=== PATIENT | female | born 1945 | race African-American/Black ===

== ENCOUNTER 2017-08-25 19:47 | Inpatient (IN) | payer MEDICARE, BC, SELFPAY | END 2017-08-27 08:13 | disposition home or self-care (01) | DRG 440 | PROVIDERS: Admitting Provider Internal Medicine Adolescent Medicine; Emergency Provider Emergency Medicine; Family Provider Family Medicine; Visit Provider Family Medicine | DX: K85.90 Acute pancreatitis without necrosis or infection, unspecified (principal); I10 Essential (primary) hypertension | CPT/HCPCS: 36415; 74176; 80053; 80076; 82150; 83690; 85025; 96374; 96375; 99284; J2405 ==

== ENCOUNTER → 2017-11-15 13:08 | Outpatient (CLI) | payer MEDICARE, BC, SELFPAY ==
--- NOTE | 2017-11-15 13:10 | CI_ITS ---
Cerebrovascular Exam Indications: 785.9 Bruit. IMPRESSIONS 1. The bilateral vertebral arteries are patent with normal antegrade flow. 2. Study suggests less than 20% stenosis involving the right internal carotid artery. 3. Study suggests 20-49%(lower end of scale)stenosis involving the left internal carotid artery. History: Risk factors: Hypertension. Hyperlipidemia. Carotid duplex study. Complete study and Doppler flow study including spectral analysis, color and cano scale imaging. Height: Height: 165.1cm. Height: 65in. Weight: Weight: 71.2kg. Weight: 156.7lb. Body mass index: BMI: 26.1kg/m^2. Body surface area: BSA: 1.82m^2. Location: Vascular laboratory. Patient status: Outpatient. Tables: Arterial flow: + +--------+--------+ Location V sys V ed + +--------+--------+ Right CCA - proximal 69.1cm/s 14.1cm/s + +--------+--------+ Right CCA - distal 93.5cm/s 18.1cm/s + +--------+--------+ Right ECA 99cm/s -------- + +--------+--------+ Right ICA - proximal 99.8cm/s 19.6cm/s + +--------+--------+ Right ICA - mid 89.6cm/s 18.1cm/s + +--------+--------+ Right ICA - distal 71.5cm/s 23.6cm/s + +--------+--------+ Right vertebral 58.1cm/s -------- + +--------+--------+ Left CCA - proximal 80.9cm/s 15.7cm/s + +--------+--------+ Left CCA - distal 98.2cm/s 17.3cm/s + +--------+--------+ Left ECA 127cm/s -------- + +--------+--------+ Left ICA - proximal 116cm/s 21.2cm/s + +--------+--------+ Left ICA - mid 117cm/s 26.7cm/s + +--------+--------+ Left ICA - distal 92.7cm/s 26.7cm/s + +--------+--------+ Left vertebral 46.4cm/s 33.8cm/s + +--------+--------+ Velocity ratios: + + + + + + Right, V sys Right, V ed Left, V sys Left, V ed + + + + + + Max ICA/dist CCA 1.07 1.3 1.19 1.54 + + + + + + (Report amended ) Electronically signed by: Russ Tellez [id number]
== END ==
PROVIDERS: Family Provider Family Medicine; PCP Family Medicine; Visit Provider Internal Medicine Cardiovascular Disease
DX: R09.89 Other specified symptoms and signs involving the circulatory and respiratory systems (principal); I11.9 Hypertensive heart disease without heart failure
CPT/HCPCS: 93880

== ENCOUNTER → 2017-11-19 09:53 | Outpatient (CLI) | payer MEDICARE, BC, SELFPAY ==
--- NOTE | 2017-11-19 09:55 | MM_ITS ---
MM Dig screening mamm BI w/CAD CAD Screening ORDERING PHYSICIAN : Miller Mathews MD PATIENT AGE: 72 years GENDER: Female INDICATION: No hormones no new complaints. Previous benign needle biopsies of right and left breast. Family history. Sister with breast cancer in her 20 COMPARISON: Previous mammograms: October 2016, February 2016 right mammogram. Bilateral mammogram 2014 and September 2014. TECHNIQUE: Standard CC and MLO images were obtained. R2 CAD reviewed. FINDINGS: Moderate breast density bilaterally. Mild asymmetry CAD highlights no areas of concern nor does visual inspection. No dominant mass nor suspicious new findings no architectural distortion .:2 metallic clips from previous stereotactic biopsy procedures central right breast; with one metallic clip at the medial left breast . IMPRESSION: Stable bilateral mammogram with no new areas of concern. Follow-up in one year BI-RADS Category: 1 Negative RECOMMENDED FOLLOW-UP: 1YR - 1 YEAR FOLLOW-UP (A letter has been sent to the patient regarding results of the study.) Knee
== END ==
PROVIDERS: Family Provider Family Medicine; PCP Family Medicine; Visit Provider Family Medicine
DX: Z12.31 Encounter for screening mammogram for malignant neoplasm of breast (principal)
CPT/HCPCS: 77067

== ENCOUNTER → 2017-11-22 10:09 | Outpatient (REF) | payer MEDICARE, BC, SELFPAY | LOC: LAB 10:09 | PROVIDERS: Visit Provider Podiatrist | DX: B35.1 Tinea unguium (principal) | CPT/HCPCS: 87102; 87206; 87220 ==

== ENCOUNTER → 2017-12-04 12:17 | Outpatient (CLI) | payer MEDICARE, BC, SELFPAY ==
[2017-12-04 12:26] LABS: Microscopic, Urine URINE MICROSCOPIC (MICROSCOPIC)
[2017-12-04 12:48] LABS: Basophils % 0.7 % (0.1-2.0); Eosinophils # 0.2 K/mm3 (0.0-0.4); Eosinophils % 4.4 % (0.1-12.0); Hemoglobin 12.5 g/dL (12.2-16.2); Lymphocytes # 1.3 K/mm3 (0.7-4.5); Lymphocytes % 36.7 K/mm3 (10-50); Mean Corpuscular HGB Conc 30.6 g/dL (31.8-35.4); Mean Corpuscular Hemoglobin 25.4 pg (27.0-31.2); Mean Platelet Volume 8.7 fl (7.4-10.4); Monocytes # 0.3 K/mm3 (0.1-1.0); Monocytes % 9.7 % (1.7-9.3); Neutrophils # 1.7 K/mm3 (1.8-7.8); Neutrophils % 48.5 % (37.0-80.0); Platelet Count 193 K/mm3 (142-424); Red Blood Count 4.94 M/mm3 (4.20-5.40); White Blood Count 3.5 K/mm3 (4.8-10.8)
[2017-12-04 13:14] LABS: Alanine Aminotransferase 15 U/L (12-78); Albumin Level 3.5 gm/dL (3.4-5.0); Albumin/Globulin Ratio 0.9 (1.1-1.8); Alkaline Phosphatase 110 U/L (46-116); Anion Gap 12.7 mEq/L (5-15); Aspartate Amino Transferase 14 U/L (15-37); Bilirubin,Total 0.2 mg/dL (0.2-1.0); Blood Urea Nitrogen 13 mg/dL (7-18); Calcium 8.9 mg/dL (8.5-10.1); Carbon Dioxide 25 mmol/L (21.0-32.0); Chloride 99 mmol/L (98-107); Creatinine,Serum 1.01 mg/dL (0.55-1.02); Estimated Glomerular Filt Rate 54 ml/min (>60); GFR (African American) 66 ML/MIN (>60); Glucose 97 mg/dL (74-106); Potassium 3.7 mmoL/L (3.5-5.1); Sodium 133 mmol/L (136-145); Total Protein,Serum 7.5 gm/dL (6.4-8.2)
[2017-12-04 13:26] LABS: Erythrocyte Sedimentation Rate 25 mm/hr (0-30)
[2017-12-04 13:33] LABS: Appearance,Urine CLEAR (Clear); Bilirubin,Urine Negative (Negative); Blood, Urine Negative (Negative); Color,Urine YELLOW (Yellow); Glucose,Urine (UA) Negative (Negative); Ketones,Urine Negative (Negative); Leukocyte Esterase,Urine Negative (Negative); Nitrate,Urine Negative (Negative); PH,Urine 6.5 (5.0-8.5); Protein,Urine Negative (Negative); Urobilinogen,Urine 0.2 EU/dl (0.2)
[2017-12-04 14:16] LABS: Bacteria,Urine Trace /lpf
== END ==
PROVIDERS: Visit Provider Nurse Practitioner Women's Health
DX: M32.9 Systemic lupus erythematosus, unspecified (principal); I73.00 Raynaud's syndrome without gangrene; M54.2 Cervicalgia; R53.83 Other fatigue; M48.00 Spinal stenosis, site unspecified; Z91.89 Other specified personal risk factors, not elsewhere classified
CPT/HCPCS: 36415; 80053; 81001; 85025; 85651

== ENCOUNTER → 2018-01-25 08:00 | Outpatient (CLI) | payer MEDICARE, BC, SELFPAY ==
--- NOTE | 2018-01-25 08:05 | US_ITS ---
US Arterial Ankle Brachial Ind ITS.REASON: Peripheral Artery Disease previous smoker, ORDERING PHYSICIAN: Sierra Patel DPM PATIENT AGE: 72 years TECHNIQUE: Segmental pressures obtained of both right and left leg. These are compared to brachial blood pressure to yield index at each level sampled including summary BRITTNEE. The data sheets from the procedure are available in PACS FINDINGS Rest study only performed today No prior studies available for comparison. Blood pressures reported are in millimeters mercury. RIGHT LEG BRITTNEE = .8. Right TBI 0.5 Brachial BP: 140 Thigh BP: 126 Calf BP: 135 Ankle PT: 122 Ankle DP : 146 Digit =72 LEFT LEG BRITTNEE = .8 Left TBI 0.5 Brachial BPD: 147 Thigh BP: 139 Calf BP: 125 Ankle PT:115 Ankle DP: 131 Digit = 73 Pulses and waveforms: Dampened at left calf IMPRESSION: 1. Slightly low ABIs on both sides suggesting mild atherosclerotic vascular disease. 2. Low TBI's bilaterally suggesting small vessel disease
== END ==
PROVIDERS: Family Provider Family Medicine; PCP Family Medicine; Visit Provider Podiatrist
DX: I73.00 Raynaud's syndrome without gangrene (principal); M54.2 Cervicalgia; M32.9 Systemic lupus erythematosus, unspecified; R53.83 Other fatigue; M48.00 Spinal stenosis, site unspecified; Z91.89 Other specified personal risk factors, not elsewhere classified
CPT/HCPCS: 93922

== ENCOUNTER → 2018-02-07 14:53 | Outpatient (CLI) | payer MEDICARE, BC, SELFPAY ==
[2018-02-07 16:53] LABS: Blood Urea Nitrogen 16 mg/dL (7-18); Creatinine,Serum 1.22 mg/dL (0.55-1.02); Estimated Glomerular Filt Rate 44 ml/min (>60); GFR (African American) 53 ML/MIN (>60)
== END ==
PROVIDERS: Visit Provider Internal Medicine Cardiovascular Disease
DX: M32.9 Systemic lupus erythematosus, unspecified (principal); I73.00 Raynaud's syndrome without gangrene; M54.2 Cervicalgia; R53.83 Other fatigue; M48.00 Spinal stenosis, site unspecified; Z91.89 Other specified personal risk factors, not elsewhere classified
CPT/HCPCS: 36415; 82565; 84520

== ENCOUNTER → 2018-02-08 13:31 | Outpatient (CLI) | payer MEDICARE, BC, SELFPAY | PROVIDERS: Family Provider Family Medicine; PCP Family Medicine; Visit Provider Internal Medicine | DX: M32.9 Systemic lupus erythematosus, unspecified (principal); I73.00 Raynaud's syndrome without gangrene; M54.2 Cervicalgia; R53.83 Other fatigue; M48.00 Spinal stenosis, site unspecified; Z91.89 Other specified personal risk factors, not elsewhere classified ==

== ENCOUNTER → 2018-03-10 12:04 | Outpatient (CLI) | payer MEDICARE, BC, SELFPAY ==
[2018-03-10 12:07] LABS: Microscopic, Urine URINE MICROSCOPIC (MICROSCOPIC)
[2018-03-10 12:43] LABS: Basophils % 0.7 % (0.1-2.0); Eosinophils # 0.1 K/mm3 (0.0-0.4); Eosinophils % 3.3 % (0.1-12.0); Hematocrit 42.7 % (37.0-47.0); Hemoglobin 12.6 g/dL (12.2-16.2); Lymphocytes # 1.2 K/mm3 (0.7-4.5); Lymphocytes % 32.2 K/mm3 (10-50); Mean Corpuscular HGB Conc 29.5 g/dL (31.8-35.4); Mean Corpuscular Hemoglobin 25.1 pg (27.0-31.2); Mean Corpuscular Volume 85.1 fl (81-99); Mean Platelet Volume 8.8 fl (7.4-10.4); Monocytes # 0.4 K/mm3 (0.1-1.0); Monocytes % 10.3 % (1.7-9.3); Neutrophils # 1.9 K/mm3 (1.8-7.8); Neutrophils % 53.6 % (37.0-80.0); Platelet Count 213 K/mm3 (142-424); Red Blood Count 5.02 M/mm3 (4.20-5.40); Red Cell Distribution Width 14.7 % (11.5-17.5); White Blood Count 3.6 K/mm3 (4.8-10.8)
[2018-03-10 12:48] LABS: Appearance,Urine CLEAR (Clear); Bilirubin,Urine Negative (Negative); Blood, Urine Negative (Negative); Color,Urine YELLOW (Yellow); Glucose,Urine (UA) Negative (Negative); Ketones,Urine Negative (Negative); Leukocyte Esterase,Urine Negative (Negative); Nitrate,Urine Negative (Negative); PH,Urine 5.5 (5.0-8.5); Protein,Urine Negative (Negative); Specific Gravity, Urine <= 1.005 (1.005-1.030); Urobilinogen,Urine 0.2 EU/dl (0.2)
[2018-03-10 12:54] LABS: Alanine Aminotransferase 17 U/L (12-78); Albumin Level 3.6 gm/dL (3.4-5.0); Albumin/Globulin Ratio 0.9 (1.1-1.8); Alkaline Phosphatase 105 U/L (46-116); Anion Gap 8.8 mEq/L (5-15); Aspartate Amino Transferase 19 U/L (15-37); Bilirubin,Total 0.3 mg/dL (0.2-1.0); Blood Urea Nitrogen 14 mg/dL (7-18); C-Reactive Protein 2.7 mg/L (0.0-0.9); Calcium 9.2 mg/dL (8.5-10.1); Carbon Dioxide 28 mmol/L (21.0-32.0); Chloride 99 mmol/L (98-107); Creatinine,Serum 1.01 mg/dL (0.55-1.02); Estimated Glomerular Filt Rate 54 ml/min (>60); GFR (African American) 66 ML/MIN (>60); Globulin 3.9 gm/dl (1.3-3.2); Glucose 80 mg/dL (74-106); Potassium 3.8 mmoL/L (3.5-5.1); Sodium 132 mmol/L (136-145); Total Protein,Serum 7.5 gm/dL (6.4-8.2)
[2018-03-10 12:58] LABS: Bacteria,Urine Trace /lpf
[2018-03-10 13:42] LABS: Erythrocyte Sedimentation Rate 16 mm/hr (0-30)
== END ==
PROVIDERS: Visit Provider Nurse Practitioner Women's Health
DX: M32.9 Systemic lupus erythematosus, unspecified (principal); I73.00 Raynaud's syndrome without gangrene; M54.2 Cervicalgia; R53.83 Other fatigue; M48.00 Spinal stenosis, site unspecified; Z91.89 Other specified personal risk factors, not elsewhere classified
CPT/HCPCS: 36415; 80053; 81001; 85025; 85651; 86140

== ENCOUNTER → 2018-04-12 11:11 | Outpatient (CLI) | payer MEDICARE, BC, SELFPAY ==
--- NOTE | 2018-04-12 11:14 | MR_ITS ---
MR lumbar spine wo con, MR 3-d myelogram/MRCP Ordering Physician: Katharina Nieto Patient Age: 72 years: Female HISTORY: ITS.REASON: ACUTE MIDLINE LOW BACK PAIN Back surgery 5 years ago. Left-sided groin and buttocks pain. Left leg pain numbness and tingling. TECHNIQUE: Sagittal STIR, T1, T2, axial T1 and T2. On 1.5T Siemens wide bore MRI. 3-D MR myelogram image set obtained & performed on MRI workstation. Additional sagittal thin section T2 weighted dataset obtained from this latter acquisition as well (---76 CPT) COMPARISON lumbar spine from February 28, 2014 FINDINGS Extensive posterior fusion with bilateral pedicle screws and posterior metallic rods extending from L2- L3-L4 L2-L5 bilateral. Associated laminectomy through this entire segment with what appear to be likely associated discectomy changes. The metallic elements of the posterior fusion yield MRI metal artifact of the lower L-spine obscuring areas closest metallic elements.. L5/S1.. Disc space narrowing. No significant disc bulge or protrusion. Laminectomy. Moderate facet hypertrophy/arthropathy yield mild encroachment upon the foramen L4/5. Marked degenerative disc space narrowing, post discectomy. Stable grade 1 anterolisthesis of L4 on 5.. Roughly just over 5 mm anterolisthesis slight narrowing the foramen bilaterally due to the facet hypertrophy and listhesis. A minor spondylosis L3/4. Laminectomy Scant mm anterolisthesis. Scant disc bulge. Posterior element hypertrophy does indent the posterior right aspect of thecal sac more than left. A may also yield some encroachment upon entry right foramen. Also note fluid collection seen posterior to the L3, L4 level which likely reflects seroma. Less likely dural leak. It was likely evident retrospect on 2017 CT studies... It does demonstrate some inhomogeneous signal which may reflect likely some debris within it. . This fluid collection/probable seroma measures up to 4.5 cm length extends at least 2.6 cm AP. Additional deep in edema is seen at the soft tissues of back overlying this area L2/3. Discectomy evident with. Disc spacer device in place. Bilateral pedicle Screws. Question very small laminectomy to the right. L1/2. Prominent posterior facet and ligament flavum hypertrophy markedly narrowing the spinal canal. Prominent central canal stenosis. There is also a asymmetric disc bulge most evident leftward with additional bulge/disc protrusion at left foramen.. This along with facet hypertrophy does yield bilateral recess encroachment along with moderate/generous left foraminal encroachment T12/L1. Mild/Moderate facet hypertrophy slightly indents the posterior thecal sac. Disc intact with only scant bulge. T11/12 disc intact 3-D MR myelogram image set shows the prominent spinal stenosis at L1/2. The metallic artifact diminishes resolution imaging at L3/4 ....... IMPRESSION--------- 1. Postsurgical changes lumbar spine A. Posterior fusion with discectomy and laminectomy at L2/3, L3/4/L4/5/. Features as in text above. Would additionally note appears to be a a moderate size seroma posterior to L3 and L4 likely grossly stable since 2017 CT 2.*.. Prominent central canal stenosis has developed at at L1/2.-Just superior to the fused segment. Prominent ligament flavum and facet hypertrophy primarily yields the Prominent Central Canal Stenosis at L1/2.. Disc bulge addition narrows the spinal canal; additional bulge/protrusion at left foramen additionally encroaches and narrows the left foramen Neurosurgical follow-up for this stenosis feature warrants.
== END ==
PROVIDERS: Family Provider Family Medicine; PCP Family Medicine; Visit Provider Nurse Practitioner Family
DX: M54.5 Low back pain (principal)
CPT/HCPCS: 72148; 76376

== ENCOUNTER 2018-05-18 08:59 | Outpatient (RCR) | payer MEDICARE, BC, SELFPAY | END 2018-05-18 09:00 | disposition home or self-care (01) | LOC: PT 08:59 | PROVIDERS: Family Provider Family Medicine; PCP Family Medicine; Visit Provider Physician Assistant | DX: M54.16 Radiculopathy, lumbar region (principal) | CPT/HCPCS: 97014; 97110; 97163; G0283 ==

== ENCOUNTER → 2018-05-30 11:29 | Outpatient (CLI) | payer MEDICARE, BC, SELFPAY ==
[2018-05-30 11:32] LABS: Microscopic, Urine URINE MICROSCOPIC (MICROSCOPIC)
[2018-05-30 12:08] LABS: Appearance,Urine CLEAR (Clear); Bilirubin,Urine Negative (Negative); Blood, Urine Negative (Negative); Color,Urine YELLOW (Yellow); Glucose,Urine (UA) Negative (Negative); Ketones,Urine Negative (Negative); Leukocyte Esterase,Urine Negative (Negative); Nitrate,Urine Negative (Negative); Protein,Urine Negative (Negative); Specific Gravity, Urine <= 1.005 (1.005-1.030); Urobilinogen,Urine 0.2 EU/dl (0.2)
[2018-05-30 12:20] LABS: Bacteria,Urine Trace /lpf
[2018-05-30 12:22] LABS: Creatinine,Urine Random 31 mg/dL (20-320)
[2018-05-30 13:52] LABS: Albumin Level 3.7 gm/dL (3.4-5.0); Anion Gap 13.5 mEq/L (5-15); Blood Urea Nitrogen 17 mg/dL (7-18); Calcium 8.9 mg/dL (8.5-10.1); Carbon Dioxide 29 mmol/L (21.0-32.0); Chloride 100 mmol/L (98-107); Creatinine,Serum 1.15 mg/dL (0.55-1.02); Estimated Glomerular Filt Rate 47 ml/min (>60); GFR (African American) 56 ML/MIN (>60); Glucose 67 mg/dL (74-106); Phosphorous 3.6 mg/dL (2.4-4.9); Potassium 3.5 mmoL/L (3.5-5.1); Sodium 139 mmol/L (136-145)
[2018-06-01 12:42] LABS: Microalbumin, Urine <3.0 ug/mL (Not Estab.)
[2018-06-01 12:50] LABS: Vitamin D 25 Hydroxy 29.1 ng/mL (30.0-100.0)
== END ==
PROVIDERS: PCP Family Medicine; Visit Provider Internal Medicine Nephrology
DX: M32.10 Systemic lupus erythematosus, organ or system involvement unspecified (principal)
CPT/HCPCS: 36415; 80069; 81001; 82043; 82570; 82652

== ENCOUNTER → 2018-06-06 15:38 | Outpatient (POV) | payer MEDICARE, BC, SELFPAY | PROVIDERS: Visit Provider Internal Medicine Nephrology | DX: Z00.00 Encounter for general adult medical examination without abnormal findings (principal) ==

== ENCOUNTER → 2018-07-12 11:09 | Outpatient (CLI) | payer MEDICARE, BC, SELFPAY ==
[2018-07-12 12:55] LABS: Anion Gap 16.2 mEq/L (5-15); Blood Urea Nitrogen 13 mg/dL (7-18); Calcium 9.4 mg/dL (8.5-10.1); Carbon Dioxide 25 mmol/L (21.0-32.0); Chloride 98 mmol/L (98-107); Creatinine,Serum 1.04 mg/dL (0.55-1.02); Estimated Glomerular Filt Rate 52 ml/min (>60); GFR (African American) 63 ML/MIN (>60); Glucose 85 mg/dL (74-106); Potassium 4.2 mmoL/L (3.5-5.1); Sodium 135 mmol/L (136-145)
[2018-07-12 18:21] LABS: Basophils % 0.4 % (0.1-2.0); Eosinophils # 0.3 K/mm3 (0.0-0.4); Eosinophils % 9.7 % (0.1-12.0); Hematocrit 34.1 % (37.0-47.0); Hemoglobin 10.6 g/dL (12.2-16.2); Lymphocytes # 1.1 K/mm3 (0.7-4.5); Lymphocytes % 32.7 K/mm3 (10-50); Mean Corpuscular HGB Conc 31.1 g/dL (31.8-35.4); Mean Corpuscular Hemoglobin 26.4 pg (27.0-31.2); Mean Corpuscular Volume 84.9 fl (81-99); Monocytes # 0.3 K/mm3 (0.1-1.0); Monocytes % 9.2 % (1.7-9.3); Neutrophils # 1.7 K/mm3 (1.8-7.8); Neutrophils % 48.1 % (37.0-80.0); Platelet Count 370 K/mm3 (142-424); Red Blood Count 4.01 M/mm3 (4.20-5.40); White Blood Count 3.5 K/mm3 (4.8-10.8)
== END ==
PROVIDERS: PCP Family Medicine; Visit Provider Internal Medicine
DX: M32.9 Systemic lupus erythematosus, unspecified (principal); I73.00 Raynaud's syndrome without gangrene; M54.2 Cervicalgia; R53.83 Other fatigue; M48.00 Spinal stenosis, site unspecified; Z91.89 Other specified personal risk factors, not elsewhere classified
CPT/HCPCS: 36415; 80048; 85025

== ENCOUNTER → 2018-08-16 11:56 | Outpatient (CLI) | payer MEDICARE, BC, SELFPAY ==
[2018-08-16 12:02] LABS: Microscopic, Urine URINE MICROSCOPIC (MICROSCOPIC)
[2018-08-16 13:15] LABS: Appearance,Urine CLEAR (Clear); Bilirubin,Urine Negative (Negative); Blood, Urine Negative (Negative); Color,Urine STRAW (Yellow); Glucose,Urine (UA) Negative (Negative); Ketones,Urine Negative (Negative); Leukocyte Esterase,Urine Negative (Negative); Nitrate,Urine Negative (Negative); Protein,Urine Negative (Negative); Specific Gravity, Urine <= 1.005 (1.005-1.030); Urobilinogen,Urine 0.2 EU/dl (0.2)
[2018-08-16 13:34] LABS: Bacteria,Urine Trace /lpf; WBC,Urine Occasional #/hpf (0-3)
[2018-08-16 13:43] LABS: Alanine Aminotransferase 17 U/L (12-78); Albumin Level 2.8 gm/dL (3.4-5.0); Albumin/Globulin Ratio 0.7 (1.1-1.8); Alkaline Phosphatase 129 U/L (46-116); Anion Gap 14.7 mEq/L (5-15); Aspartate Amino Transferase 20 U/L (15-37); Bilirubin,Total 0.2 mg/dL (0.2-1.0); Blood Urea Nitrogen 13 mg/dL (7-18); Calcium 8.8 mg/dL (8.5-10.1); Carbon Dioxide 25 mmol/L (21.0-32.0); Chloride 96 mmol/L (98-107); Creatinine,Serum 0.97 mg/dL (0.55-1.02); Estimated Glomerular Filt Rate 57 ml/min (>60); GFR (African American) 69 ML/MIN (>60); Globulin 4.1 gm/dl (1.3-3.2); Glucose 94 mg/dL (74-106); Potassium 3.7 mmoL/L (3.5-5.1); Sodium 132 mmol/L (136-145); Total Protein,Serum 6.9 gm/dL (6.4-8.2)
[2018-08-16 14:03] LABS: C-Reactive Protein 23.3 mg/L (0.0-0.9)
[2018-08-16 14:14] LABS: Basophils % 0.4 % (0.1-2.0); Eosinophils # 0.2 K/mm3 (0.0-0.4); Eosinophils % 2.6 % (0.1-12.0); Hematocrit 33.5 % (37.0-47.0); Hemoglobin 10.2 g/dL (12.2-16.2); Lymphocytes % 17.7 % (10-50); Mean Corpuscular HGB Conc 30.5 g/dL (31.8-35.4); Mean Corpuscular Hemoglobin 25.7 pg (27.0-31.2); Mean Corpuscular Volume 84.3 fl (81-99); Mean Platelet Volume 8.2 fl (7.4-10.4); Monocytes # 0.6 K/mm3 (0.1-1.0); Monocytes % 9.8 % (1.7-9.3); Neutrophils % 69.5 % (37.0-80.0); Platelet Count 270 K/mm3 (142-424); Red Blood Count 3.97 M/mm3 (4.20-5.40); Red Cell Distribution Width 14.8 % (11.5-17.5); White Blood Count 5.8 K/mm3 (4.8-10.8)
[2018-08-16 15:20] LABS: Erythrocyte Sedimentation Rate > 120 mm/hr (0-30)
== END ==
PROVIDERS: Visit Provider Nurse Practitioner Women's Health
DX: Z91.89 Other specified personal risk factors, not elsewhere classified (principal); M32.9 Systemic lupus erythematosus, unspecified; I73.00 Raynaud's syndrome without gangrene; M54.2 Cervicalgia; R53.83 Other fatigue; M48.00 Spinal stenosis, site unspecified
CPT/HCPCS: 36415; 80053; 81001; 85025; 85651; 86140

== ENCOUNTER → 2018-08-26 14:50 | Outpatient (CLI) | payer MEDICARE, BC, SELFPAY ==
--- NOTE | 2018-08-26 14:58 | XR_ITS ---
XR hip RT 2-3V w/pelvis HISTORY: ITS.REASON: RT HIP PAIN ORDERING PHYSICIAN: Referral Provider, PATIENT AGE: 72 years COMPARISON: 10/20/2012 FINDINGS: There has been fusion of the lower lumbar spine with multiple interpedicular screws at L3-L4 5 and S1 with fixating screws also within the sacroiliac region on both sides. There are mild osteoarthritic changes of the right hip. No fracture or dislocation. No lytic or blastic change. Well-circumscribed calcific density is present along the superior aspect of the greater trochanter at 7 mm and may be due to old avulsion fracture versus soft tissue calcification. There is mild sclerosis of left SI joint inferiorly. IMPRESSION: 1. Mild osteoarthritis of the right hip. 2. Postsurgical changes
== END ==
PROVIDERS: PCP Family Medicine; Visit Provider Internal Medicine Rheumatology
DX: M25.551 Pain in right hip (principal); R70.0 Elevated erythrocyte sedimentation rate; M32.9 Systemic lupus erythematosus, unspecified; I73.00 Raynaud's syndrome without gangrene; M54.2 Cervicalgia; R53.83 Other fatigue; M48.00 Spinal stenosis, site unspecified; Z91.89 Other specified personal risk factors, not elsewhere classified
CPT/HCPCS: 73502

== ENCOUNTER 2018-08-30 10:00 | Outpatient (RCR) | payer MEDICARE, BC, SELFPAY | END 2018-08-30 10:05 | disposition home or self-care (01) | LOC: PT 10:00 | PROVIDERS: Visit Provider Physical Medicine & Rehabilitation | DX: M48.061 Spinal stenosis, lumbar region without neurogenic claudication (principal); M32.9 Systemic lupus erythematosus, unspecified; M54.2 Cervicalgia; I73.00 Raynaud's syndrome without gangrene | CPT/HCPCS: 97010; 97014; 97035; 97110; 97116; 97163; G0283 ==

== ENCOUNTER → 2018-09-17 11:52 | Outpatient (CLI) | payer MEDICARE, BC, SELFPAY ==
[2018-09-17 12:02] LABS: Microscopic, Urine URINE MICROSCOPIC (MICROSCOPIC)
[2018-09-17 13:40] LABS: Appearance,Urine CLOUDY (Clear); Blood, Urine TRACE-I (Negative); Color,Urine YELLOW (Yellow); Glucose,Urine (UA) Negative (Negative); Ketones,Urine Negative (Negative); Leukocyte Esterase,Urine 3+ (Negative); Nitrate,Urine Negative (Negative); PH,Urine 6.5 (5.0-8.5); Protein,Urine TRACE (Negative); Specific Gravity, Urine 1.015 (1.005-1.030); Urobilinogen,Urine 0.2 EU/dl (0.2)
[2018-09-17 13:51] LABS: Bacteria,Urine 4+ /lpf; Bilirubin,Urine Negative (Negative); WBC,Urine TNTC #/hpf (0-3)
[2018-09-17 14:23] LABS: Alanine Aminotransferase 10 U/L (12-78); Albumin Level 2.8 gm/dL (3.4-5.0); Albumin/Globulin Ratio 0.7 (1.1-1.8); Alkaline Phosphatase 131 U/L (46-116); Anion Gap 18.1 mEq/L (5-15); Aspartate Amino Transferase 15 U/L (15-37); Bilirubin,Total 0.2 mg/dL (0.2-1.0); Blood Urea Nitrogen 8 mg/dL (7-18); Calcium 8.9 mg/dL (8.5-10.1); Carbon Dioxide 24 mmol/L (21.0-32.0); Chloride 93 mmol/L (98-107); Creatine Kinase 57 U/L (26-192); Creatinine,Serum 1.01 mg/dL (0.55-1.02); Estimated Glomerular Filt Rate 54 ml/min (>60); GFR (African American) 66 ML/MIN (>60); Glucose 107 mg/dL (74-106); Potassium 4.1 mmoL/L (3.5-5.1); Sodium 131 mmol/L (136-145); Total Protein,Serum 6.8 gm/dL (6.4-8.2)
[2018-09-17 15:21] LABS: Basophils % 0.3 % (0.1-2.0); Eosinophils # 0.8 K/mm3 (0.0-0.4); Eosinophils % 16.5 % (0.1-12.0); Hematocrit 34.1 % (37.0-47.0); Hemoglobin 10.5 g/dL (12.2-16.2); Lymphocytes % 21.7 % (10-50); Mean Corpuscular HGB Conc 30.8 g/dL (31.8-35.4); Mean Corpuscular Hemoglobin 24.8 pg (27.0-31.2); Mean Corpuscular Volume 80.6 fl (81-99); Mean Platelet Volume 7.4 fl (7.4-10.4); Monocytes # 0.3 K/mm3 (0.1-1.0); Monocytes % 6.6 % (1.7-9.3); Neutrophils # 2.6 K/mm3 (1.8-7.8); Neutrophils % 54.9 % (37.0-80.0); Platelet Count 347 K/mm3 (142-424); Red Blood Count 4.23 M/mm3 (4.20-5.40); Red Cell Distribution Width 15.8 % (11.5-17.5); White Blood Count 4.8 K/mm3 (4.8-10.8)
[2018-09-17 16:10] LABS: C-Reactive Protein 16.3 mg/L (0.0-0.9)
[2018-09-17 16:38] LABS: Erythrocyte Sedimentation Rate 120 mm/hr (0-30)
[2018-09-18 21:45] LABS: Complement C3 229 mg/dL (82-167)
[2018-09-19 14:25] LABS: Anti-DNA (DS) Ab Qn <1 IU/mL (0-9)
== END ==
PROVIDERS: Visit Provider Internal Medicine Rheumatology
DX: M32.9 Systemic lupus erythematosus, unspecified (principal); I73.00 Raynaud's syndrome without gangrene; M48.00 Spinal stenosis, site unspecified; M54.2 Cervicalgia; R53.83 Other fatigue; Z91.89 Other specified personal risk factors, not elsewhere classified; Z79.899 Other long term (current) drug therapy
CPT/HCPCS: 36415; 80053; 81001; 82550; 85025; 85651; 86140; 86161; 86225; 87086

== ENCOUNTER → 2018-09-23 17:28 | Outpatient (CLI) | payer MEDICARE, BC, SELFPAY ==
[2018-09-29 17:57] LABS: Miscellaneous Test COMMENT:
[2018-09-29 18:11] LABS: Free Kappa Lt Chains 17.4 mg/L (3.3-19.4); Free Lambda Lt Chains 17.4 mg/L (5.7-26.3)
[2018-09-30 15:38] LABS: Immunoglobulin A, Qn 77 mg/dL (87-352); Immunoglobulin G, Qn 1129 mg/dL (700-1600)
[2018-09-30 18:03] LABS: Immunoglobulin M, Qn 36 mg/dL (26-217)
== END ==
PROVIDERS: Visit Provider Internal Medicine Rheumatology
DX: M32.9 Systemic lupus erythematosus, unspecified (principal); Z79.899 Other long term (current) drug therapy
CPT/HCPCS: 36415; 82784; 83883; 86334

== ENCOUNTER → 2018-10-01 12:26 | Outpatient (CLI) | payer MEDICARE, BC, SELFPAY ==
[2018-10-01 14:12] LABS: Anion Gap 16.6 mEq/L (5-15); Blood Urea Nitrogen 11 mg/dL (7-18); Calcium 9.3 mg/dL (8.5-10.1); Carbon Dioxide 23 mmol/L (21.0-32.0); Chloride 99 mmol/L (98-107); Creatinine,Serum 1.08 mg/dL (0.55-1.02); Estimated Glomerular Filt Rate 50 ml/min (>60); GFR (African American) 61 ML/MIN (>60); Glucose 78 mg/dL (74-106); Potassium 4.6 mmoL/L (3.5-5.1); Sodium 134 mmol/L (136-145)
== END ==
PROVIDERS: Visit Provider Internal Medicine Nephrology
DX: N18.3 Chronic kidney disease, stage 3 (moderate) (principal)
CPT/HCPCS: 36415; 80048

== ENCOUNTER → 2018-11-17 13:17 | Outpatient (CLI) | payer MEDICARE, BC, SELFPAY ==
--- NOTE | 2018-11-17 13:19 | MM_ITS ---
MM Dig mamm BI DX w/CAD INDICATION: Right-sided lateral breast fullness and pain at 11:00 to 8:00 ORDERING PHYSICIAN: Katharina Nieto PATIENT AGE: 73 years COMPARISON: 11/19/2017, 08/26/2015 TECHNIQUE: Standard images are performed along with right sided mag views. FINDINGS: There is average fibroglandular tissue. There are 2 clips present on the right both in the upper aspect of the right breast slightly lateral. A few small calcifications are present in the central retroareolar region. These were present dating back to 08/26/2015 but may be slightly more numerous. No malignant appearing mass or malignant appearing microcalcification is evident. No discrete mass is apparent. There is a clip in the lateral aspect of left breast. There is some minimal nodularity noted in the subareolar region of the left breast have a somewhat similar appearance on older exam of 08/26/2015 and may be due to asymmetric fibroglandular tissue not readily apparent on the cc view. IMPRESSION: There are probably benign findings including probably benign calcifications in the central aspect of the right breast and probable fibroglandular asymmetric density in the retroareolar region on the left. If there are any palpable abnormalities, then would recommend ultrasound for further evaluation. No palpable abnormalities were reported at the time of this exam. Recommend bilateral 6 month mammographic follow-up. If the asymmetric densities remain in the left subareolar region than ultrasound can be performed at that time BI-RADS Category: 3 Probably Benign Finding Short Term Follow-up RECOMMENDED FOLLOW-UP: 6M - 6 MONTH FOLLOW-UP If there are palpable abnormalities then, a should be further interrogated with ultrasound (A letter has been sent to the patient regarding results of the study.)
== END ==
PROVIDERS: PCP Nurse Practitioner Family; Visit Provider Nurse Practitioner Family
DX: N63.14 Unspecified lump in the right breast, lower inner quadrant; N64.4 Mastodynia
CPT/HCPCS: 77066

== ENCOUNTER → 2018-12-22 10:32 | Outpatient (CLI) | payer MEDICARE, BC, SELFPAY ==
[2018-12-22 10:38] LABS: Microscopic, Urine URINE MICROSCOPIC (MICROSCOPIC)
[2018-12-22 10:54] LABS: Basophils # 0.1 K/mm3 (0-0.2); Basophils % 1.4 % (0.1-2.0); Eosinophils # 0.1 K/mm3 (0.0-0.4); Eosinophils % 3.1 % (0.1-12.0); Hematocrit 34.7 % (37.0-47.0); Hemoglobin 10.5 g/dL (12.2-16.2); Lymphocytes # 1.1 K/mm3 (0.7-4.5); Lymphocytes % 26.4 % (10-50); Mean Corpuscular HGB Conc 30.3 g/dL (31.8-35.4); Mean Corpuscular Hemoglobin 25.4 pg (27.0-31.2); Mean Platelet Volume 8.1 fl (7.4-10.4); Monocytes # 0.3 K/mm3 (0.1-1.0); Monocytes % 6.9 % (1.7-9.3); Neutrophils # 2.6 K/mm3 (1.8-7.8); Neutrophils % 62.3 % (37.0-80.0); Platelet Count 284 K/mm3 (142-424); Red Blood Count 4.14 M/mm3 (4.20-5.40); Red Cell Distribution Width 16.4 % (11.5-17.5); White Blood Count 4.1 K/mm3 (4.8-10.8)
[2018-12-22 12:06] LABS: Alanine Aminotransferase 13 U/L (12-78); Albumin Level 3.3 gm/dL (3.4-5.0); Albumin/Globulin Ratio 0.8 (1.1-1.8); Alkaline Phosphatase 146 U/L (46-116); Anion Gap 16.5 mEq/L (5-15); Aspartate Amino Transferase 16 U/L (15-37); Bilirubin,Total 0.3 mg/dL (0.2-1.0); Blood Urea Nitrogen 11 mg/dL (7-18); C-Reactive Protein 7.5 mg/L (0.0-0.9); Calcium 9.3 mg/dL (8.5-10.1); Carbon Dioxide 25 mmol/L (21.0-32.0); Chloride 99 mmol/L (98-107); Creatinine,Serum 1.01 mg/dL (0.55-1.02); Estimated Glomerular Filt Rate 54 ml/min (>60); GFR (African American) 65 ML/MIN (>60); Glucose 84 mg/dL (74-106); Potassium 3.5 mmoL/L (3.5-5.1); Sodium 137 mmol/L (136-145); Total Protein,Serum 7.3 gm/dL (6.4-8.2)
[2018-12-22 12:12] LABS: Erythrocyte Sedimentation Rate 78 mm/hr (0-30)
[2018-12-22 12:18] LABS: Appearance,Urine CLEAR (Clear); Bilirubin,Urine Negative (Negative); Blood, Urine Negative (Negative); Color,Urine YELLOW (Yellow); Glucose,Urine (UA) Negative (Negative); Ketones,Urine Negative (Negative); Leukocyte Esterase,Urine Negative (Negative); Nitrate,Urine Negative (Negative); PH,Urine 6.5 (5.0-8.5); Protein,Urine Negative (Negative); Urobilinogen,Urine 0.2 EU/dl (0.2)
[2018-12-22 12:58] LABS: Bacteria,Urine 1+ /lpf; Squamous Epithelial Cell,Urine Occasional #/hpf (0-5); WBC,Urine Occasional #/hpf (0-3)
== END ==
PROVIDERS: Visit Provider Nurse Practitioner Women's Health
DX: M32.9 Systemic lupus erythematosus, unspecified (principal); I73.00 Raynaud's syndrome without gangrene; M54.2 Cervicalgia; M48.00 Spinal stenosis, site unspecified; Z91.89 Other specified personal risk factors, not elsewhere classified
CPT/HCPCS: 36415; 80053; 81001; 85025; 85651; 86140

== ENCOUNTER → 2019-02-15 14:57 | Outpatient (CLI) | payer MEDICARE, BC, SELFPAY ==
[2019-02-15 15:02] LABS: Microscopic, Urine URINE MICROSCOPIC (MICROSCOPIC)
[2019-02-15 15:41] LABS: Basophils % 0.3 % (0.1-2.0); Eosinophils # 0.1 K/mm3 (0.0-0.4); Eosinophils % 2.6 % (0.1-12.0); Hemoglobin 10.5 g/dL (12.2-16.2); Lymphocytes # 1.2 K/mm3 (0.7-4.5); Lymphocytes % 29.3 % (10-50); Mean Corpuscular HGB Conc 30.8 g/dL (31.8-35.4); Mean Corpuscular Hemoglobin 24.7 pg (27.0-31.2); Mean Corpuscular Volume 80.2 fl (81-99); Monocytes # 0.4 K/mm3 (0.1-1.0); Monocytes % 10.2 % (1.7-9.3); Neutrophils # 2.4 K/mm3 (1.8-7.8); Neutrophils % 57.7 % (37.0-80.0); Platelet Count 275 K/mm3 (142-424); Red Blood Count 4.23 M/mm3 (4.20-5.40); Red Cell Distribution Width 14.8 % (11.5-17.5); White Blood Count 4.1 K/mm3 (4.8-10.8)
[2019-02-15 15:59] LABS: Appearance,Urine CLEAR (Clear); Bilirubin,Urine Negative (Negative); Blood, Urine Negative (Negative); Color,Urine YELLOW (Yellow); Glucose,Urine (UA) Negative (Negative); Ketones,Urine Negative (Negative); Leukocyte Esterase,Urine Negative (Negative); Nitrate,Urine Negative (Negative); Protein,Urine Negative (Negative); Urobilinogen,Urine 0.2 EU/dl (0.2)
[2019-02-15 16:27] LABS: Bacteria,Urine Trace /lpf; WBC,Urine Occasional #/hpf (0-3)
[2019-02-15 17:36] LABS: Erythrocyte Sedimentation Rate 84 mm/hr (0-30)
[2019-02-15 17:48] LABS: Alanine Aminotransferase 17 U/L (12-78); Albumin Level 3.2 gm/dL (3.4-5.0); Albumin/Globulin Ratio 0.9 (1.1-1.8); Alkaline Phosphatase 150 U/L (46-116); Aspartate Amino Transferase 13 U/L (15-37); Bilirubin,Total 0.2 mg/dL (0.2-1.0); Blood Urea Nitrogen 15 mg/dL (7-18); C-Reactive Protein 9.7 mg/L (0.0-0.9); Carbon Dioxide 22 mmol/L (21.0-32.0); Chloride 99 mmol/L (98-107); Creatinine,Serum 1.02 mg/dL (0.55-1.02); Estimated Glomerular Filt Rate 53 ml/min (>60); GFR (African American) 65 ML/MIN (>60); Globulin 3.6 gm/dl (1.3-3.2); Glucose 63 mg/dL (74-106); Sodium 135 mmol/L (136-145); Total Protein,Serum 6.8 gm/dL (6.4-8.2)
== END ==
PROVIDERS: Visit Provider Nurse Practitioner Women's Health
DX: M32.9 Systemic lupus erythematosus, unspecified (principal); I73.00 Raynaud's syndrome without gangrene; M54.2 Cervicalgia; R53.83 Other fatigue; M48.00 Spinal stenosis, site unspecified
CPT/HCPCS: 36415; 80053; 81001; 85025; 85651; 86140

== ENCOUNTER → 2019-03-13 11:48 | Outpatient (CLI) | payer MEDICARE, BC, SELFPAY ==
[2019-03-13 14:35] LABS: Anion Gap 13.2 mEq/L (5-15); Blood Urea Nitrogen 14 mg/dL (7-18); Calcium 8.9 mg/dL (8.5-10.1); Carbon Dioxide 26 mmol/L (21.0-32.0); Chloride 97 mmol/L (98-107); Creatinine,Serum 1.04 mg/dL (0.55-1.02); Estimated Glomerular Filt Rate 52 ml/min (>60); GFR (African American) 63 ML/MIN (>60); Glucose 77 mg/dL (74-106); Potassium 4.2 mmoL/L (3.5-5.1); Sodium 132 mmol/L (136-145)
== END ==
PROVIDERS: Visit Provider Nurse Practitioner Family
DX: E87.6 Hypokalemia (principal)
CPT/HCPCS: 36415; 80048

== ENCOUNTER → 2019-03-24 12:27 | Outpatient (CLI) | payer MEDICARE, BC, SELFPAY ==
--- NOTE | 2019-03-24 12:32 | CA_ITS ---
PROCEDURE: 2-D M-mode and color Doppler study INDICATIONS FOR THE TEST: Chest pain COPD Heart Murmur Tobacco Smoking Palpitations Fatigue Syncope Edema+ Hypertension+Diabetes Mellitus Rheumatic Fever SOB HUNTER Obesity Hyperlipidemia+ Family History HD Additional History PVD,PAD,GERD PATIENT INFORMATION HEIGHT: 64 WEIGHT:140 GENDER: Female B/P:130/60 2-D/M-MODE INTERPRETATION: 2-D MEASUREMENTS OBSERVED VALUES IN CMS Right Ventricular Dimension (RVDd) 1.9 Interventricular Septum (Thickness)(IVsd) 0.7 Left Ventricular Internal Dimensions(LVIDd) 4.2 Left Ventricular Posterior Wall (Thickness)(LVPWd) 0.9 Aortic Root 2.1 Aortic Cusp Separation 1.6 Left Atrial Dimensions (LAD) 2.8 2D 1. Left atrium is mildly enlarged, left ventricle is normal size, mild concentric left ventricular hypertrophy, visually estimated ejection fraction 55% with no regional wall motion abnormality. 2. The right atrium and right ventricle are moderately enlarged with normal contractility. 3. The aortic valve is minimally thickened and fibrosed. 4. The mitral and tricuspid valve leaflets are minimally thickened 5. The pulmonic valve is poorly visualized . 6. No significant pericardial effusion noted. DOPPLER INTERROGATION: Doppler interrogation of the aortic, mitral and tricuspid valvular presence of mild mitral and moderate tricuspid regurgitation, calculated right ventricular systolic pressure 38 mmHg, this is consistent with mild pulmonary hypertension, inferior vena cava is not well visualized, diastolic parameters are inconclusive. CONCLUSION: 1. Biatrial enlargement, normal left ventricular size, mild concentric left ventricular hypertrophy, visually estimated ejection fraction 55% with no regional wall motion abnormality, diastolic parameters are inconclusive. 2. Moderately enlarged right ventricle with normal contractility. 3. Mild mitral and moderate tricuspid regurgitation, calculated right ventricular systolic pressure 38 mmHg consistent with mild pulmonary hypertension, inferior vena cava is not well visualized. 4. No significant pericardial effusion noted.
--- NOTE | 2019-03-24 12:32 | NVE_ITS ---
Venous Exam Indications: 729.81 Swelling of limb. IMPRESSIONS 1. There is no evidence of significant Reflux. 2. No evidence of deep or superficial vein thrombosis involving the right lower extremity 3. No evidence of deep or superficial vein thrombosis involving the left lower extremity History: Risk factors: Hypertension. Complete lower extremity venous duplex evaluation. Doppler flow study including spectral analysis, color and cano scale imaging. Location: Vascular laboratory. Patient status: Outpatient. Tables: Venous flow and imaging: + +-------+ + Location Overall Flow properties + +-------+ + Right common femoral Patent Normal phasicity; spontaneous; normal augmentation; compressible + +-------+ + Right saphenofemoral junction Patent Compressible + +-------+ + Right profunda femoral Patent Compressible + +-------+ + Right femoral Patent Normal phasicity; spontaneous; normal augmentation; compressible; no reflux + +-------+ + Right greater saphenous Patent Normal phasicity; spontaneous; normal augmentation; compressible + +-------+ + Right popliteal Patent Normal phasicity; spontaneous; normal augmentation; compressible + +-------+ + Right posterior tibial Patent Compressible + +-------+ + Right peroneal Patent Compressible + +-------+ + Right gastrocnemius Patent Compressible + +-------+ + Right soleal Patent Compressible + +-------+ + Left common femoral Patent Normal phasicity; spontaneous; normal augmentation; compressible + +-------+ + Left saphenofemoral junction Patent Compressible + +-------+ + Left profunda femoral Patent Compressible + +-------+ + Left femoral Patent Normal phasicity; spontaneous; normal augmentation; compressible + +-------+ + Left greater saphenous Patent Normal phasicity; spontaneous; normal augmentation; compressible + +-------+
== END ==
PROVIDERS: PCP Family Medicine; Visit Provider Family Medicine
DX: M32.9 Systemic lupus erythematosus, unspecified (principal); M54.2 Cervicalgia; I73.00 Raynaud's syndrome without gangrene; R53.83 Other fatigue; M48.00 Spinal stenosis, site unspecified; Z91.89 Other specified personal risk factors, not elsewhere classified; R60.1 Generalized edema; M79.662 Pain in left lower leg; M79.661 Pain in right lower leg
CPT/HCPCS: 93306; 93970

== ENCOUNTER → 2019-03-31 10:27 | Outpatient (CLI) | payer MEDICARE, BC, SELFPAY | PROVIDERS: Visit Provider Internal Medicine Cardiovascular Disease | DX: R06.09 Other forms of dyspnea (principal); M32.9 Systemic lupus erythematosus, unspecified; I73.00 Raynaud's syndrome without gangrene; M54.2 Cervicalgia; R53.83 Other fatigue; M48.00 Spinal stenosis, site unspecified; Z91.89 Other specified personal risk factors, not elsewhere classified | CPT/HCPCS: 36415; 83880 ==

== ENCOUNTER → 2019-04-04 15:22 | Outpatient (CLI) | payer MEDICARE, BC, SELFPAY ==
[2019-04-04 15:30] LABS: Microscopic, Urine URINE MICROSCOPIC (MICROSCOPIC)
[2019-04-04 16:20] LABS: Basophils % 0.2 % (0.1-2.0); Eosinophils # 0.1 K/mm3 (0.0-0.4); Hematocrit 34.7 % (37.0-47.0); Hemoglobin 9.9 g/dL (12.2-16.2); Lymphocytes # 1.4 K/mm3 (0.7-4.5); Lymphocytes % 26.2 % (10-50); Mean Corpuscular HGB Conc 28.7 g/dL (31.8-35.4); Mean Corpuscular Hemoglobin 22.8 pg (27.0-31.2); Mean Corpuscular Volume 79.5 fl (81-99); Mean Platelet Volume 7.3 fl (7.4-10.4); Monocytes # 0.4 K/mm3 (0.1-1.0); Monocytes % 7.9 % (1.7-9.3); Neutrophils # 3.5 K/mm3 (1.8-7.8); Neutrophils % 63.6 % (37.0-80.0); Platelet Count 284 K/mm3 (142-424); Red Blood Count 4.36 M/mm3 (4.20-5.40); Red Cell Distribution Width 15.2 % (11.5-17.5); White Blood Count 5.4 K/mm3 (4.8-10.8)
[2019-04-04 16:53] LABS: Appearance,Urine CLEAR (Clear); Bilirubin,Urine Negative (Negative); Blood, Urine Negative (Negative); Color,Urine YELLOW (Yellow); Glucose,Urine (UA) Negative (Negative); Ketones,Urine Negative (Negative); Leukocyte Esterase,Urine Negative (Negative); Nitrate,Urine Negative (Negative); Protein,Urine Negative (Negative); Specific Gravity, Urine <= 1.005 (1.005-1.030); Urobilinogen,Urine 0.2 EU/dl (0.2)
[2019-04-04 17:01] LABS: Bacteria,Urine Trace /lpf; Squamous Epithelial Cell,Urine Occasional #/hpf (0-5); WBC,Urine Occasional #/hpf (0-3)
[2019-04-04 18:44] LABS: Erythrocyte Sedimentation Rate 43 mm/hr (0-30)
[2019-04-04 18:46] LABS: Alanine Aminotransferase 15 U/L (12-78); Albumin Level 3.3 gm/dL (3.4-5.0); Albumin/Globulin Ratio 0.8 (1.1-1.8); Alkaline Phosphatase 135 U/L (46-116); Anion Gap 15.4 mEq/L (5-15); Aspartate Amino Transferase 18 U/L (15-37); Bilirubin,Total 0.2 mg/dL (0.2-1.0); Blood Urea Nitrogen 18 mg/dL (7-18); C-Reactive Protein 4.6 mg/L (0.0-0.9); Calcium 9.4 mg/dL (8.5-10.1); Carbon Dioxide 26 mmol/L (21.0-32.0); Chloride 97 mmol/L (98-107); Creatinine,Serum 1.15 mg/dL (0.55-1.02); Estimated Glomerular Filt Rate 47 ml/min (>60); GFR (African American) 56 ML/MIN (>60); Globulin 3.9 gm/dl (1.3-3.2); Glucose 81 mg/dL (74-106); Potassium 4.4 mmoL/L (3.5-5.1); Sodium 134 mmol/L (136-145); Total Protein,Serum 7.2 gm/dL (6.4-8.2)
== END ==
PROVIDERS: Visit Provider Internal Medicine Rheumatology
DX: I73.00 Raynaud's syndrome without gangrene (principal); M32.9 Systemic lupus erythematosus, unspecified; M54.2 Cervicalgia; M48.00 Spinal stenosis, site unspecified; R53.83 Other fatigue; Z91.89 Other specified personal risk factors, not elsewhere classified
CPT/HCPCS: 36415; 80053; 81001; 85025; 85651; 86140

== ENCOUNTER → 2019-05-12 13:35 | Outpatient (CLI) | payer MEDICARE, BC, SELFPAY ==
--- NOTE | 2019-05-12 13:38 | MM_ITS ---
PROCEDURE: MM DIG MAMM BI DX W/CAD LEFT BREAST ULTRASOUND COMPLETE WITH AXILLA CLINICAL INDICATION: 6 MO FU COMPARISON: DMSB DIGITAL MAMM-SCREEN BILATERAL from 12/08/2011 DMSB DIG MAMM-SCREEN OLGA LIDIA from 09/14/2013 DMSB DIG MAMM-SCREEN OLGA LIDIA from 10/11/2014 DMDB DIG MAMM-DX OLGA LIDIA from 08/26/2015 DMDXUWAR DIG MAMM-DX UNI RT W ADD VIEW from 02/28/2016 DMSB DIG MAMM-SCREEN OLGA LIDIA W/CAD from 11/16/2016 [facility] MM Dig screening mamm BI w/CAD from 11/19/2017 DXBI MM Dig mamm BI DX w/CAD from 11/17/2018 US BREAST LT COMPLETE from 05/12/2019 TECHNIQUE: Standard CC and MLO images were obtained. R2 CAD reviewed. Problem solving views both breast and left breast ultrasound FINDINGS: Average to dense fibroglandular tissue. Right breast: Clips are present in the central/superior aspect of the right breast. There are benign-appearing calcifications in this region. The calcifications in the central aspect of the right breast do not appear significantly changed. Left breast: Asymmetric density is present in the superior aspect of the left breast which appear to compress out on the focal spot compression view. There are some probably benign calcifications in the deep upper aspect of the left breast. These are likely unchanged compared to 11/19/2017 as well as an older exam of 12/08/2011. A clip is also present in the medial aspect of the left breast. Left breast ultrasound: A small cluster of cyst noted at 12 o'clock near the nipple at 8 by 10 x 2 mm. No suspicious nodules apparent.. IMPRESSION: Probably benign findings. No convincing evidence malignancy regarding right breast calcifications and asymmetric density in the superior left breast. Recommend continued six-month follow-up to confirm 1 year stability BI-RAD Category: 3 Probably Benign Finding Short Term Follow-up FOLLOW-UP: 6M 6 Month Follow-up (A letter has been sent to the patient regarding results of the study.) Dictated by: Artie Jones MD 05/16/2019 09:11 Signed by: <Electronically signed by Artie Jones MD in [place]> 05/16/2019 09:11
== END ==
PROVIDERS: PCP Family Medicine; Visit Provider Family Medicine
DX: R92.8 Other abnormal and inconclusive findings on diagnostic imaging of breast (principal); N63.0 Unspecified lump in unspecified breast; Z09 Encounter for follow-up examination after completed treatment for conditions other than malignant neoplasm
CPT/HCPCS: 76641; 77066

== ENCOUNTER → 2019-05-26 15:03 | Outpatient (CLI) | payer MEDICARE, BC, SELFPAY ==
--- NOTE | 2019-05-26 15:06 | XR_ITS ---
PROCEDURE: XR HIP RT 2-3V W/PELVIS CLINICAL INDICATION: RT HIP PAIN COMPARISON: LS5 LUMBAR SPINE 5 VIEWS from 02/28/2014 HIPCMRT XR hip RT 2-3V w/pelvis from 08/26/2018 FINDINGS: There are mild osteoarthritic changes of the right hip. No acute fracture or dislocation is evident. Postsurgical changes are present with inter pedicular screws in the lower lumbar spine and S1 with screws also projecting into the ileum on each side. There is a small accessory ossicle along the greater trochanter superiorly IMPRESSION: Degenerative and postsurgical changes, no acute finding Dictated by: Artie Jones MD 05/26/2019 18:46 Electronically signed by Artie Jones MD in [place] 05/26/2019 18:46
== END ==
PROVIDERS: PCP Family Medicine; Visit Provider Family Medicine
DX: M25.551 Pain in right hip (principal)
CPT/HCPCS: 73502

== ENCOUNTER 2019-05-31 11:00 | Outpatient (RCR) | payer MEDICARE, BC, SELFPAY | END 2019-05-31 11:05 | disposition home or self-care (01) | LOC: PT 11:00 | PROVIDERS: PCP Family Medicine; Visit Provider Nurse Practitioner Family | DX: M70.61 Trochanteric bursitis, right hip (principal) | CPT/HCPCS: 97140; 97163; 97760 ==

== ENCOUNTER → 2019-06-19 10:54 | Outpatient (CLI) | payer MEDICARE, BC, SELFPAY ==
[2019-06-19 10:58] LABS: Microscopic, Urine URINE MICROSCOPIC (MICROSCOPIC)
[2019-06-19 11:34] LABS: Basophils % 0.2 % (0.1-2.0); Eosinophils # 0.1 K/mm3 (0.0-0.4); Eosinophils % 2.2 % (0.1-12.0); Hematocrit 33.1 % (37.0-47.0); Hemoglobin 9.7 g/dL (12.2-16.2); Lymphocytes # 1.1 K/mm3 (0.7-4.5); Lymphocytes % 25.1 % (10-50); Mean Corpuscular HGB Conc 29.5 g/dL (31.8-35.4); Mean Corpuscular Hemoglobin 24.2 pg (27.0-31.2); Mean Corpuscular Volume 82.2 fl (81-99); Mean Platelet Volume 8.4 fl (7.4-10.4); Monocytes # 0.4 K/mm3 (0.1-1.0); Monocytes % 8.3 % (1.7-9.3); Neutrophils # 2.9 K/mm3 (1.8-7.8); Neutrophils % 64.3 % (37.0-80.0); Platelet Count 271 K/mm3 (142-424); Red Blood Count 4.02 M/mm3 (4.20-5.40); White Blood Count 4.4 K/mm3 (4.8-10.8)
[2019-06-19 14:51] LABS: Appearance,Urine CLEAR (Clear); Bilirubin,Urine Negative (Negative); Blood, Urine Negative (Negative); Color,Urine YELLOW (Yellow); Glucose,Urine (UA) Negative (Negative); Ketones,Urine Negative (Negative); Leukocyte Esterase,Urine Negative (Negative); Nitrate,Urine Negative (Negative); Protein,Urine Negative (Negative); Specific Gravity, Urine 1.015 (1.005-1.030); Urobilinogen,Urine 0.2 EU/dl (0.2)
[2019-06-19 14:56] LABS: Albumin Level 2.8 gm/dL (3.4-5.0); Anion Gap 17.9 mEq/L (5-15); Blood Urea Nitrogen 13 mg/dL (7-18); Calcium 8.9 mg/dL (8.5-10.1); Carbon Dioxide 21 mmol/L (21.0-32.0); Chloride 100 mmol/L (98-107); Creatinine,Serum 1.04 mg/dL (0.55-1.02); Estimated Glomerular Filt Rate 52 ml/min (>60); GFR (African American) 63 ML/MIN (>60); Glucose 98 mg/dL (74-106); Phosphorous 3.9 mg/dL (2.4-4.9); Potassium 3.9 mmoL/L (3.5-5.1); Sodium 135 mmol/L (136-145)
[2019-06-19 19:07] LABS: Creatinine,Urine Random < 20 mg/dL (20-320)
== END ==
PROVIDERS: Visit Provider Internal Medicine Nephrology
DX: N18.3 Chronic kidney disease, stage 3 (moderate) (principal)
CPT/HCPCS: 36415; 80069; 81001; 82570; 84155; 85025

== ENCOUNTER → 2019-06-21 12:35 | Outpatient (POV) | payer MEDICARE, BC, SELFPAY | PROVIDERS: Visit Provider Internal Medicine Nephrology | DX: Z00.00 Encounter for general adult medical examination without abnormal findings (principal) ==

== ENCOUNTER → 2019-07-11 11:04 | Outpatient (CLI) | payer MEDICARE, BC, SELFPAY ==
[2019-07-11 11:09] LABS: Microscopic, Urine URINE MICROSCOPIC (MICROSCOPIC)
[2019-07-11 11:37] LABS: Basophils % 0.6 % (0.1-2.0); Eosinophils # 0.1 K/mm3 (0.0-0.4); Eosinophils % 1.8 % (0.1-12.0); Hematocrit 34.2 % (37.0-47.0); Hemoglobin 10.4 g/dL (12.2-16.2); Lymphocytes # 1.1 K/mm3 (0.7-4.5); Mean Corpuscular HGB Conc 30.4 g/dL (31.8-35.4); Mean Corpuscular Hemoglobin 24.2 pg (27.0-31.2); Mean Corpuscular Volume 79.5 fl (81-99); Mean Platelet Volume 9.7 fl (7.4-10.4); Monocytes # 0.4 K/mm3 (0.1-1.0); Monocytes % 7.2 % (1.7-9.3); Neutrophils # 3.6 K/mm3 (1.8-7.8); Neutrophils % 69.4 % (37.0-80.0); Platelet Count 266 K/mm3 (142-424); Red Blood Count 4.31 M/mm3 (4.20-5.40); Red Cell Distribution Width 14.7 % (11.5-17.5); White Blood Count 5.1 K/mm3 (4.8-10.8)
[2019-07-11 11:38] LABS: Appearance,Urine CLEAR (Clear); Bilirubin,Urine Negative (Negative); Blood, Urine Negative (Negative); Color,Urine YELLOW (Yellow); Glucose,Urine (UA) Negative (Negative); Ketones,Urine Negative (Negative); Leukocyte Esterase,Urine Negative (Negative); Nitrate,Urine Negative (Negative); PH,Urine 6.5 (5.0-8.5); Protein,Urine Negative (Negative); Urobilinogen,Urine 0.2 EU/dl (0.2)
[2019-07-11 11:47] LABS: WBC,Urine Occasional #/hpf (0-3)
[2019-07-11 13:54] LABS: Erythrocyte Sedimentation Rate 42 mm/hr (0-30)
[2019-07-11 14:22] LABS: Alanine Aminotransferase 9 U/L (12-78); Albumin Level 3.2 gm/dL (3.4-5.0); Albumin/Globulin Ratio 0.9 (1.1-1.8); Alkaline Phosphatase 100 U/L (46-116); Anion Gap 15.2 mEq/L (5-15); Aspartate Amino Transferase 10 U/L (15-37); Bilirubin,Total 0.2 mg/dL (0.2-1.0); Blood Urea Nitrogen 13 mg/dL (7-18); C-Reactive Protein 3.4 mg/dL (0.0-0.9); Carbon Dioxide 24 mmol/L (21.0-32.0); Chloride 98 mmol/L (98-107); Creatinine,Serum 0.97 mg/dL (0.55-1.02); Estimated Glomerular Filt Rate 57 ml/min (>60); GFR (African American) 68 ML/MIN (>60); Globulin 3.5 gm/dl (1.3-3.2); Glucose 81 mg/dL (74-106); Potassium 4.2 mmoL/L (3.5-5.1); Sodium 133 mmol/L (136-145); Total Protein,Serum 6.7 gm/dL (6.4-8.2)
== END ==
PROVIDERS: Visit Provider Internal Medicine Rheumatology
DX: I73.00 Raynaud's syndrome without gangrene (principal); M32.9 Systemic lupus erythematosus, unspecified; M54.2 Cervicalgia; M48.00 Spinal stenosis, site unspecified; R53.83 Other fatigue; Z91.89 Other specified personal risk factors, not elsewhere classified
CPT/HCPCS: 36415; 80053; 81001; 85025; 85651; 86140

== ENCOUNTER 2019-08-28 03:02 | Observation (INO) ==
[2019-08-28 03:47] LABS: Basophils % 0.3 % (0.1-2.0); Eosinophils # 0.1 K/mm3 (0.0-0.4); Eosinophils % 3.4 % (0.1-12.0); Hematocrit 31.1 % (37.0-47.0); Hemoglobin 9.3 g/dL (12.2-16.2); Lymphocytes # 1.7 K/mm3 (0.7-4.5); Lymphocytes % 40.1 % (10-50); Mean Corpuscular HGB Conc 29.8 g/dL (31.8-35.4); Mean Platelet Volume 7.4 fl (7.4-10.4); Monocytes # 0.5 K/mm3 (0.1-1.0); Monocytes % 11.6 % (1.7-9.3); Neutrophils # 1.9 K/mm3 (1.8-7.8); Neutrophils % 44.5 % (37.0-80.0); Platelet Count 241 K/mm3 (142-424); Red Blood Count 3.93 M/mm3 (4.20-5.40); White Blood Count 4.2 K/mm3 (4.8-10.8)
[2019-08-28 03:59] LABS: Alanine Aminotransferase 9 U/L (12-78); Albumin Level 3.1 gm/dL (3.4-5.0); Albumin/Globulin Ratio 0.9 (1.1-1.8); Alkaline Phosphatase 113 U/L (46-116); Anion Gap 16.8 mEq/L (5-15); Aspartate Amino Transferase 12 U/L (15-37); Bilirubin,Total 0.1 mg/dL (0.2-1.0); Blood Urea Nitrogen 20 mg/dL (7-18); Calcium 8.7 mg/dL (8.5-10.1); Carbon Dioxide 24 mmol/L (21.0-32.0); Chloride 99 mmol/L (98-107); Globulin 3.5 gm/dl (1.3-3.2); Glucose 94 mg/dL (74-106); Sodium 136 mmol/L (136-145); Total Protein,Serum 6.6 gm/dL (6.4-8.2)
--- NOTE | 2019-08-28 04:26 | Emergency Department Note ---
ED Disposition Clinical Impression: Renal insufficiency Chest pain Qualifiers: Chest pain type: precordial pain Qualified Code(s): R07.2 - Precordial pain Disposition: Admitted as Observation Condition on Discharge: Good Referrals: Miller Mathews MD [Primary Care Provider] - - Critical Care Critical Care Time: No Attestation: On 08/28/19, the high probability of a clinically significant, sudden or life threatening deterioration of the following system(s) required my full and direct attention, intervention and personal management. The time I documented below is in addition to time spent performing reported procedures but includes the following listed in this critical care notation. Medical Decision Making - Medical Records Medical records reviewed: Yes: I reviewed the patient's medical records. - Cecil Inquiry Pt receiving controlled substance: No Vital Signs: 08/28/19 03:03 08/28/19 03:11 Temperature 97.9 F Temperature Source Oral Pulse Rate [Left Radial] 75 74 Respiratory Rate 16 14 Blood Pressure [Right Arm] 148/72 H 171/74 H Blood Pressure Mean [Right Arm] 97 106 Blood Pressure Source [Right Arm] Automatic Cuff Blood Pressure Position [Right Arm] Sitting 02 Sat by Pulse Oximetry 98 99 Oxygen Delivery Method Room Air Room Air - Lab Data Lab results reviewed: Yes: I reviewed the patient's lab results. Lab Results 08/28/19 03:25: WBC 4.2 L, RBC 3.93 L, Hgb 9.3 L, Hct 31.1 L, MCV 79.0 L, MCH 23.5 L, MCHC 29.8 L, RDW 15.0, Plt Count 241, MPV 7.4, Neut % (Auto) 44.5, Lymph % (Auto) 40.1, [place] % (Auto) 11.6 H, Eos % (Auto) 3.4, Baso % (Auto) 0.3, Neut # (Auto) 1.9, Lymph # (Auto) 1.7, [place] # (Auto) 0.5, Eos # (Auto) 0.1, Baso # (Auto) 0.0 08/28/19 03:25: Sodium 136, Potassium 3.8, Chloride 99, Carbon Dioxide 24, Anion Gap 16.8 H, BUN 20 H, Creatinine 1.20 H, Estimated Creat Clear 46, Estimated GFR 44 L, Est GFR ( Amer) 54 L, Glucose 94, Calcium 8.7, Total Bilirubin 0.1 L, AST 12 L, ALT 9 L, Alkaline Phosphatase 113, Troponin I < 0.02, Total Protein 6.6, Albumin 3.1 L, Globulin 3.5 H, Albumin/Globulin Ratio 0.9 L Result diagrams: 08/28/19 03:25 08/28/19 03:25 Orders (Tests/Meds): ED MEDICATIONS Generic Name Dose Route Start Last Admin Trade Name Freq PRN Reason Stop Dose Admin Sodium Chloride 1,000 mls @ 999 mls/hr 08/28/19 03:30 08/28/19 03:33 Sod Chlor 0.9% 1000ml Bag IV 08/28/19 04:30 999 mls/hr .Q1H1M HERBERT Administration Discontinued Medications Generic Name Dose Route Start Last Admin Trade Name Freq PRN Reason Stop Dose Admin Aspirin 324 mg 08/28/19 03:30 08/28/19 03:33 Aspirin 81mg Chewable Tablet PO 08/28/19 03:31 324 mg ONCE ONE Administration ORDERS Category Date Time Status XR chest 2V Stat Exams 08/28/19 03:28 Taken Troponin I Q3H Lab 08/28/19 06:30 Ordered Troponin I Q3H Lab 08/28/19 09:30 Ordered - Radiology Data #1 Image(s): Chest Image Reviewed: Yes I reviewed the patient's radiology image Preliminary Findings: Normal/NAD - ECG Data Tracing #1 Normal Sinus Rhythm: Yes Ischemic changes: non-specific ST-T wave changes Chest Pain HPI - General Chief Complaint: Arrhythmia/Palpitations Stated Complaint: Heart Fluttering,pain earlier Time Seen by Provider: 08/28/19 03:30 Mode of Arrival: Ambulatory Source of Information: Patient, Medical Record Limitations: No Limitations Description of Symptoms (Recalled from ER Triage Doc. by RN): PT STATED SHE FEELS LIKE HER HEART IS "FLUTTERING" FOR THE LAST COUPLE OF HOURS AND C/O OF CHEST PAIN AROUND 2300. PT DENIES ANY CHEST PAIN OR SOB AT THIS TIME. - History of Present Illness HPI narrative: new onset of chest pressure tonight with feeling of palpitations - MD complaint: chest pain indicative of cardiac Onset (ago): hour(s) Duration: now resolved Activity at onset: during rest Pain location: substernal Severity: moderate Quality: heaviness Risk Factors for CAD: Family Hx of CAD Treatments prior to or on arrival for Cardiac Chest Pain: none - KWADWO Score for Non-Stemi Age of Patient: 70-79 years old Heart Rate: 70-89 bpm Systolic Blood Pressure: 140-159 mmHg Serum Creatinine: 1.20-1.59 mg/dl CHF [place] Class: I-No CHF Other Risk Factors: None Non-Stemi Risk Score: 118 - Related Data Prior Cardiac Testing/Procedures: Echocardiogram On Oral Contraceptives: No Home Medications Medication Instructions Recorded Confirmed chlorthalidone 25 mg tablet 25 mg PO ONCE tab MDD . 11/10/17 08/28/19 donepezil 10 mg tablet 10 mg PO QHS 11/10/17 08/28/19 dorzolamide 22.3 mg-timolol 6.8 1 drp OPHTHALMIC BID 11/10/17 08/28/19 mg/mL eye drops fluticasone propionate 50 50 mcg INTRANASAL ONCE 11/10/17 08/28/19 mcg/actuation nasal spray,suspension latanoprost 0.005 % eye drops 1 drp OPHTHALMIC ONCE 11/10/17 08/28/19 pantoprazole 40 mg tablet,delayed 40 mg PO QAM 11/10/17 08/28/19 release simvastatin 20 mg tablet 20 mg PO QAM 11/10/17 08/28/19 methimazole 5 mg tablet 5 mg PO DAILY 90 Days tab 11/22/17 08/28/19 montelukast 10 mg tablet 10 mg PO DAILY 90 Days tab 11/22/17 08/28/19 mycophenolate mofetil 250 mg 250 mg PO DAILY 90 Days #450 11/22/17 08/28/19 capsule nifedipine ER 60 mg 60 mg PO ONCE 11/22/17 08/28/19 tablet,extended release ferrous gluconate 236 mg (27 mg 236 mg PO DAILY tab 08/03/18 08/28/19 iron) tablet ascorbate calcium (vitamin C) 500 500 mg PO DAILY 03/31/19 08/28/19 mg tablet aspirin 81 mg tablet,delayed 81 mg PO DAILY tab 03/31/19 08/28/19 release bupropion HCl 100 mg tablet 100 mg PO BID tab 03/31/19 08/28/19 cetirizine 10 mg capsule 10 mg PO DAILY cap 03/31/19 08/28/19 cholecalciferol (vitamin D3) 25 1,000 unit PO DAILY 03/31/19 08/28/19 mcg (1,000 unit) capsule leflunomide 20 mg tablet 20 mg PO ONCE tab 03/31/19 08/28/19 magnesium 250 mg tablet 250 mg PO DAILY 03/31/19 08/28/19 potassium chloride ER 20 mEq 20 meq PO DAILY tab 03/31/19 08/28/19 tablet,extended release(part/cryst) primidone 250 mg tablet 500 mg PO QHS tab 03/31/19 08/28/19 Losartan Potassium [Cozaar 25mg 25 mg PO DAILY 08/28/19 08/28/19 Tablets] carvediloL [Carvedilol 12.5mg Tab] 18.75 mg PO BID 08/28/19 08/28/19 Allergies Allergy/AdvReac Type Severity Reaction Status Date / Time prochlorperazine Allergy Intermediate HALLUCINATI Verified 07/04/19 11:34 [PROCHLORPERAZINE] ONS oxycodone [OXYCODONE] Allergy Unknown HALLUCINATI Verified 07/04/19 11:34 ONS ibuprofen [IBUPROFEN] AdvReac Unknown PT HAS Verified 08/28/19 03:33 RENAL FAILURE [facility] History - Hepatitis A Screen Drug use history?: No High risk sexual behaviors?: No History of sexually transmitted infection?: No Currently employed?: No Childcare worker?: No Do you have indoor plumbing?: Yes Do you have electricity?: Yes Attestation statement:: This patient has been screened for Hepatitis A risk factors. I have reviewed the patient's past medical history: Yes 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: Reports:: Gastroesophageal Reflux Disease(GERD), Hyperlipidemia, Hypertension, Peripheral Artery Disease, Peripheral Vascular Disease, Renal Disease Denies:: Asthma, Chronic Obstructive Pulmonary Disease (COPD), Cerebrovascular Accident, Diabetes Mellitus Type 1, Diabetes Mellitus Type 2, Myocardial Infarction Other 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: Reports: Glaucoma, Sinus Problems, Thyroid Disease. 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 Other Surgeries: Yes: Colonoscopy, Tubal Ligation, Other Amputation: No Fractures: No Comment: back surgery (4), cyst removal and rotator cuff (Right shoulder x2) - 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 Smoking Status: Former smoker Tobacco Type: cigarettes Alcohol Intake: never Alcohol Intake Frequency:: other Substance Use Type: denies use Occupational Status: retired Household Members: spouse Family Hx:: Hypertension, Coronary Artery Disease ROS Obtained: Yes All systems reviewed & no additional complaints - Constitutional Constitutional: Denies fever(s) - Eyes Eyes: Denies change in vision - ENT Ears, Nose, Mouth, and Throat: Denies sore throat - Cardiovascular Cardiovascular: Reports as per HPI, Reports chest pain, Denies dyspnea, Denies radiating jaw, neck or arm pain, Reports rapid heart rate - Respiratory Respiratory: No cough - Gastrointestinal Gastrointestingal: Denies: abdominal pain - Genitourinary Female Genitourinary: Denies hematuria - Musculoskeletal Musculoskeletal: Denies joint pain, Denies joint swelling - Integumentary/Breasts Skin/Breast: Denies rash - Neurologic Neurologic: Denies seizure-like activity Physical Exam - General General appearance: alert, in no apparent distress - Head Head exam: normocephalic - Eye Eye exam: Present: PERRL, EOMI - ENT ENT exam: Present: mucous membranes dry - Neck Neck exam: Present: trachea midline - Respiratory Respiratory exam: Present: normal lung sounds bilaterally. Absent: respiratory distress - Cardiovascular Cardiovascular exam: Present: regular rate, systolic murmur, clicks, other (possible opening snap) - Abdominal Exam Abdominal exam: Present: soft - Extremities Exam Extremities exam: Absent: calf tenderness - Neurological Exam Neurological exam: Present: alert, CN II-XII intact - Psychiatric Psychiatric exam: Present: normal affect - Skin Skin exam: Absent: rash
--- NOTE | 2019-08-28 07:44 | Pharmacy Consult Notes ---
[facility] Pharmacy VTE Monitoring - Patient Demographics Admission date: 08/28/19 Report Date: 08/28/19 Time: 07:44 Allergies/Adverse Reactions: Patient Allergies prochlorperazine [PROCHLORPERAZINE] Allergy (Intermediate, Verified 07/04/19 11:34) HALLUCINATIONS oxycodone [OXYCODONE] Allergy (Unknown, Verified 07/04/19 11:34) HALLUCINATIONS ibuprofen [IBUPROFEN] Adverse Reaction (Unknown, Verified 08/28/19 03:33) PT HAS RENAL FAILURE Height: 1.63 m Weight: 68.067 kg Patient Problems: Current Active Problems Chest pain (Acute) Renal insufficiency (Acute) - VTE Risk Labs: VTE Related Lab Results Hgb 9.3 g/dL (12.2-16.2) L 08/28/19 03:25 Hct 31.1 % (37.0-47.0) L 08/28/19 03:25 Plt Count 241 K/mm3 (142-424) 08/28/19 03:25 BUN 20 mg/dL (7-18) H 08/28/19 03:25 Creatinine 1.20 mg/dL (0.55-1.02) H 08/28/19 03:25 Estimated Creat Clear 46 mL/min (50-200) 08/28/19 03:25 Was VTE Risk Assessment Performed: No VTE Score: 5 VTE Risk Level: Low Risk - Prophylaxis VTE Prophylaxis Ordered?: Yes Types of VTE Prophylaxis: TEDS Knee High Location of Applied Device: Bilateral Lower Extremeties - VTE Diagnosis Confirmed Treatment or plan recommended: Continue Current Treatment
--- NOTE | 2019-08-28 11:51 | H&P/Discharge Summary ---
General - General Admission date:: 08/28/19 Discharge date: 08/28/19 *Admission Date: 08/28/19 *History of present illness: chest pressure and palpitations [facility] History 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: Reports:: Deep Vein Thrombosis, Gastroesophageal Reflux Disease(GERD), Hyperlipidemia, Hypertension, Peripheral Artery Disease, Peripheral Vascular Disease, Renal Disease Denies:: Asthma, Chronic Obstructive Pulmonary Disease (COPD), Cerebrovascular Accident, Diabetes Mellitus Type 1, Diabetes Mellitus Type 2, Myocardial Infarction *Have you ever received a pneumonia vaccine?: No *Have you received a flu vaccine this season?: Yes Other 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: Reports: Anemia, Glaucoma, Sinus Problems, Thyroid Disease. Denies: Hypothyroidism Laterality Cases: Bilateral: Breast Biopsy Other Surgeries: Yes: Colonoscopy, Tubal Ligation, Other Amputation: No Fractures: No - *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 Educational Level: Attended High School Smoking Status: Former smoker Tobacco Type: cigarettes Alcohol Intake: never Alcohol Intake Frequency:: other Substance Use Type: denies use *Occupational Status:: retired Household Members: spouse *Travel in the last 8 weeks: None Family Hx:: Cancer, Coronary Artery Disease, Heart Attack, Hyperlipidemia, Hypertension, Kidney Disease, Thyroid Disorder, Alcoholism, Mental illness Review of Systems - *Neurologic Denies seizure-like activity Exam Vital signs and Labs for Last 24 Hours: Temp Pulse Resp BP Pulse Ox 97.5 F L 91 H 20 140/59 L 100 08/28/19 08:00 08/28/19 08:00 08/28/19 08:00 08/28/19 08:00 08/28/19 08:00 Laboratory Results - last 24 hr 08/28/19 03:25: WBC 4.2 L, RBC 3.93 L, Hgb 9.3 L, Hct 31.1 L, MCV 79.0 L, MCH 23.5 L, MCHC 29.8 L, RDW 15.0, Plt Count 241, MPV 7.4, Neut % (Auto) 44.5, Lymph % (Auto) 40.1, [place] % (Auto) 11.6 H, Eos % (Auto) 3.4, Baso % (Auto) 0.3, Neut # (Auto) 1.9, Lymph # (Auto) 1.7, [place] # (Auto) 0.5, Eos # (Auto) 0.1, Baso # (Auto) 0.0 08/28/19 03:25: Sodium 136, Potassium 3.8, Chloride 99, Carbon Dioxide 24, Anion Gap 16.8 H, BUN 20 H, Creatinine 1.20 H, Estimated Creat Clear 46, Estimated GFR 44 L, Est GFR ( Amer) 54 L, Glucose 94, Calcium 8.7, Total Bilirubin 0.1 L, AST 12 L, ALT 9 L, Alkaline Phosphatase 113, Troponin I < 0.02, Total Protein 6.6, Albumin 3.1 L, Globulin 3.5 H, Albumin/Globulin Ratio 0.9 L 08/28/19 03:25: Magnesium 1.8 08/28/19 06:30: Troponin I < 0.02 08/28/19 09:32: Troponin I < 0.02 I & O for Last 24 hours: Intake & Output 08/25/19 08/26/19 08/27/19 08/28/19 11:59 11:59 11:59 11:59 Intake Total 0 / 0 Balance 0 / 0 Weight 150 lb 1 oz Results Labs on day of discharge: Labs from last 24 hours 08/28/19 08/28/19 08/28/19 09:32 06:30 03:25 WBC RBC Hgb Hct MCV MCH MCHC RDW Plt Count MPV Neut % (Auto) Lymph % (Auto) [place] % (Auto) Eos % (Auto) Baso % (Auto) Neut # (Auto) Lymph # (Auto) [place] # (Auto) Eos # (Auto) Baso # (Auto) Sodium Potassium Chloride Carbon Dioxide Anion Gap BUN Creatinine Estimated Creat Clear Estimated GFR Est GFR ( Amer) Glucose Calcium Magnesium 1.8 Total Bilirubin AST ALT Alkaline Phosphatase Troponin I < 0.02 < 0.02 Total Protein Albumin Globulin Albumin/Globulin Ratio 08/28/19 08/28/19 03:25 03:25 WBC 4.2 L RBC 3.93 L Hgb 9.3 L Hct 31.1 L MCV 79.0 L MCH 23.5 L MCHC 29.8 L RDW 15.0 Plt Count 241 MPV 7.4 Neut % (Auto) 44.5 Lymph % (Auto) 40.1 [place] % (Auto) 11.6 H Eos % (Auto) 3.4 Baso % (Auto) 0.3 Neut # (Auto) 1.9 Lymph # (Auto) 1.7 [place] # (Auto) 0.5 Eos # (Auto) 0.1 Baso # (Auto) 0.0 Sodium 136 Potassium 3.8 Chloride 99 Carbon Dioxide 24 Anion Gap 16.8 H BUN 20 H Creatinine 1.20 H Estimated Creat Clear 46 Estimated GFR 44 L Est GFR ( Amer) 54 L Glucose 94 Calcium 8.7 Magnesium Total Bilirubin 0.1 L AST 12 L ALT 9 L Alkaline Phosphatase 113 Troponin I < 0.02 Total Protein 6.6 Albumin 3.1 L Globulin 3.5 H Albumin/Globulin Ratio 0.9 L Discharge Plan - Patient Discharge Instructions ACTIVITY: Continue current activity DIET: continue same diet Patient Instructions: DI for Kidney Failure, Acute Renal Failure, DI for Chest Pain - Follow up Plan Disposition: Home, Self-Group Home Medications: Home Medications Medication Instructions Recorded Confirmed Type chlorthalidone 25 mg tablet 25 mg PO DAILY tab 11/10/17 08/28/19 History donepezil 10 mg tablet 10 mg PO HS 11/10/17 08/28/19 History dorzolamide 22.3 mg-timolol 6.8 1 drp OPHTHALMIC BID 11/10/17 08/28/19 History mg/mL eye drops fluticasone propionate 50 2 sprays INTRANASAL DAILY 11/10/17 08/28/19 History mcg/actuation nasal spray,suspension pantoprazole 40 mg tablet,delayed 40 mg PO DAILY 11/10/17 08/28/19 History release simvastatin 20 mg tablet 20 mg PO HS 11/10/17 08/28/19 History methimazole 5 mg tablet 5 mg PO DAILY 90 Days tab 11/22/17 08/28/19 History montelukast 10 mg tablet 10 mg PO DAILY 90 Days tab 11/22/17 08/28/19 History mycophenolate mofetil 250 mg 1,000 mg PO BID 90 Days #450 11/22/17 08/28/19 History capsule nifedipine ER 60 mg 60 mg PO DAILY 11/22/17 08/28/19 History tablet,extended release ferrous gluconate 236 mg (27 mg 236 mg PO DAILY tab 08/03/18 08/28/19 History iron) tablet ascorbate calcium (vitamin C) 500 500 mg PO DAILY 03/31/19 08/28/19 History mg tablet aspirin 81 mg tablet,delayed 81 mg PO DAILY tab 03/31/19 08/28/19 History release bupropion HCl 100 mg tablet 100 mg PO DIRECTED tab 03/31/19 08/28/19 History cetirizine 10 mg capsule 10 mg PO DAILY cap 03/31/19 08/28/19 History cholecalciferol (vitamin D3) 25 1,000 unit PO DAILY 03/31/19 08/28/19 History mcg (1,000 unit) capsule leflunomide 20 mg tablet 20 mg PO DAILY tab 03/31/19 08/28/19 History magnesium 250 mg tablet 250 mg PO DAILY 03/31/19 08/28/19 History potassium chloride ER 20 mEq 20 meq PO DAILY tab 03/31/19 08/28/19 History tablet,extended release(part/cryst) primidone 250 mg tablet 500 mg PO HS tab 03/31/19 08/28/19 History Losartan Potassium [Cozaar 25mg 25 mg PO DAILY 08/28/19 08/28/19 History Tablets] Travoprost [Travatan 0.004% opth 1 drp OP HS 08/28/19 08/28/19 History soln 2.5mL] carvediloL [Carvedilol 12.5mg Tab] 18.75 mg PO BID 08/28/19 08/28/19 History carvediloL [Coreg 25mg Tablet] 25 mg PO BID #60 tab 08/28/19 Rx Prescriptions/Medication Reconciliation: New carvediloL [Coreg 25mg Tablet] 25 mg PO BID #60 tab Continued chlorthalidone 25 mg tablet 25 mg PO DAILY tab donepezil 10 mg tablet 10 mg PO HS fluticasone propionate 50 mcg/actuation nasal spray,suspension 2 sprays INTRANASAL DAILY pantoprazole 40 mg tablet,delayed release 40 mg PO DAILY simvastatin 20 mg tablet 20 mg PO HS mycophenolate mofetil 250 mg capsule 1,000 mg PO BID 90 Days #450 methimazole 5 mg tablet 5 mg PO DAILY 90 Days tab nifedipine ER 60 mg tablet,extended release 60 mg PO DAILY aspirin 81 mg tablet,delayed release 81 mg PO DAILY tab potassium chloride ER 20 mEq tablet,extended release(part/cryst) 20 meq PO DAILY tab primidone 250 mg tablet 500 mg PO HS tab bupropion HCl 100 mg tablet 100 mg PO DIRECTED tab cetirizine 10 mg capsule 10 mg PO DAILY cap magnesium 250 mg tablet 250 mg PO DAILY cholecalciferol (vitamin D3) 25 mcg (1,000 unit) capsule 1,000 unit PO DAILY dorzolamide 22.3 mg-timolol 6.8 mg/mL eye drops 1 drp OPHTHALMIC BID montelukast 10 mg tablet 10 mg PO DAILY 90 Days tab ferrous gluconate 236 mg (27 mg iron) tablet 236 mg PO DAILY tab leflunomide 20 mg tablet 20 mg PO DAILY tab ascorbate calcium (vitamin C) 500 mg tablet 500 mg PO DAILY Losartan Potassium [Cozaar 25mg Tablets] 25 mg PO DAILY Travoprost [Travatan 0.004% opth soln 2.5mL] 1 drp OP HS Discontinued carvediloL [Carvedilol 12.5mg Tab] 18.75 mg PO BID - Problem Reconciliation Problems Reviewed?: Yes
--- NOTE | 2019-08-29 17:48 | Electrocardiograph Report ---
APPROVED REPORT Exam: Resting ECG HR:78 bpm ECG Measurements Heart Rate 78 AXES MA 134 P 68 QRSd 76 QRS 43 QT 352 T-36 QTc 401 <Conclusion> Normal sinus rhythm Possible Left atrial enlargement Anteroseptal infarct, age undetermined NDST-T Changes Abnormal ECG Electronically signed by : Selvin Dobson, 08/29/2019 17:47:27
== END 2019-08-28 13:15 | disposition home or self-care (01) ==
LOC: 2ND 03:02 → ER 03:02 → 2ND 04:54
PROVIDERS: ADMIT Emergency Medicine; ATTEND Family Medicine
CPT/HCPCS: 71020; 71046; 80053; 83735; 84484; 85025; 93005; 99284; G0378

== ENCOUNTER → 2019-10-18 11:41 | Outpatient (CLI) | payer MEDICARE, BC, SELFPAY ==
[2019-10-18 11:50] LABS: Microscopic, Urine URINE MICROSCOPIC (MICROSCOPIC)
[2019-10-18 12:32] LABS: Basophils % 0.6 % (0.1-2.0); Eosinophils # 0.1 K/mm3 (0.0-0.4); Eosinophils % 2.4 % (0.1-12.0); Hematocrit 31.7 % (37.0-47.0); Hemoglobin 9.2 g/dL (12.2-16.2); Lymphocytes # 0.9 K/mm3 (0.7-4.5); Lymphocytes % 20.4 % (10-50); Mean Corpuscular HGB Conc 28.9 g/dL (31.8-35.4); Mean Corpuscular Hemoglobin 22.6 pg (27.0-31.2); Mean Corpuscular Volume 78.2 fl (81-99); Mean Platelet Volume 7.7 fl (7.4-10.4); Monocytes # 0.3 K/mm3 (0.1-1.0); Monocytes % 7.4 % (1.7-9.3); Neutrophils # 3.1 K/mm3 (1.8-7.8); Neutrophils % 69.2 % (37.0-80.0); Platelet Count 269 K/mm3 (142-424); Red Blood Count 4.05 M/mm3 (4.20-5.40); Red Cell Distribution Width 15.8 % (11.5-17.5); White Blood Count 4.4 K/mm3 (4.8-10.8)
[2019-10-18 12:41] LABS: Appearance,Urine CLEAR (Clear); Bilirubin,Urine Negative (Negative); Blood, Urine Negative (Negative); Color,Urine YELLOW (Yellow); Glucose,Urine (UA) Negative (Negative); Ketones,Urine Negative (Negative); Leukocyte Esterase,Urine Negative (Negative); Nitrate,Urine Negative (Negative); Protein,Urine Negative (Negative); Urobilinogen,Urine 0.2 EU/dl (0.2)
[2019-10-18 13:03] LABS: RBC,Urine Occasional #/hpf (0-3)
[2019-10-18 13:30] LABS: Alanine Aminotransferase 11 U/L (12-78); Albumin Level 3.2 gm/dL (3.4-5.0); Alkaline Phosphatase 89 U/L (46-116); Aspartate Amino Transferase 16 U/L (15-37); Bilirubin,Total 0.2 mg/dL (0.2-1.0); Blood Urea Nitrogen 13 mg/dL (7-18); C-Reactive Protein 3.8 mg/dL (0.0-0.9); Calcium 8.6 mg/dL (8.5-10.1); Carbon Dioxide 23 mmol/L (21.0-32.0); Chloride 98 mmol/L (98-107); Creatinine,Serum 1.23 mg/dL (0.55-1.02); Estimated Glomerular Filt Rate 43 ml/min (>60); GFR (African American) 52 ML/MIN (>60); Globulin 3.3 gm/dl (1.3-3.2); Glucose 93 mg/dL (74-106); Sodium 133 mmol/L (136-145); Total Protein,Serum 6.5 gm/dL (6.4-8.2)
[2019-10-18 15:41] LABS: Erythrocyte Sedimentation Rate 51 mm/hr (0-30)
[2019-10-19 17:02] LABS: Anti-DNA (DS) Ab Qn <1 IU/mL (0-9); Complement C3 148 mg/dL (82-167)
[2019-10-23 15:43] LABS: Free T4 (Free Thyroxine) 0.87 ng/dl (0.76-1.46)
== END ==
PROVIDERS: Nurse Practitioner Family; PCP Internal Medicine Adolescent Medicine; Visit Provider Nurse Practitioner Family
DX: M32.9 Systemic lupus erythematosus, unspecified (principal); R53.83 Other fatigue; R70.0 Elevated erythrocyte sedimentation rate; R35.0 Frequency of micturition; E05.90 Thyrotoxicosis, unspecified without thyrotoxic crisis or storm; Z79.899 Other long term (current) drug therapy
CPT/HCPCS: 36415; 80053; 81001; 84439; 84443; 85025; 85651; 86140; 86161; 86225; 87086

== ENCOUNTER → 2019-10-24 11:21 | Outpatient (CLI) | payer MEDICARE, BC, SELFPAY ==
[2019-10-25 11:40] LABS: Hep A Ab, IgM Negative (Negative); Hepatitis B Core Antibody IgM Negative (Negative); Hepatitis B Surface Antigen Negative (Negative)
[2019-10-25 11:59] LABS: Hepatitis C Antibody <0.1 s/co ratio (0.0-0.9)
[2019-10-28 15:29] LABS: QuantiFERON-TB Gold Plus Negative (Negative)
== END ==
PROVIDERS: Visit Provider Internal Medicine Rheumatology
DX: R53.83 Other fatigue (principal); Z79.899 Other long term (current) drug therapy
CPT/HCPCS: 36415; 80074; 86480

== ENCOUNTER → 2019-12-04 14:23 | Outpatient (CLI) | payer MEDICARE, BC, SELFPAY ==
--- NOTE | 2019-12-04 14:28 | XR_ITS ---
PROCEDURE: XR FOOT WT BEARING LT 3V CLINICAL INDICATION: pain Plantar foot pain COMPARISON: FTL3 FOOT-LT-3 VIEWS from 05/04/2015 FINDINGS: Moderate to severe osteoarthritic changes are present involving the 1st metatarsophalangeal joint with some bony hypertrophy at the distal aspect of the 1st metatarsal. Osteoarthritic changes are also present at the navicular cuneiform joint. Normal alignment. Other findings:None. 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
--- NOTE | 2019-12-04 14:28 | XR_ITS ---
PROCEDURE: XR FOOT WT BEARING RT 3V CLINICAL INDICATION: pain Right foot pain COMPARISON: FTL3 FOOT-LT-3 VIEWS from 05/04/2015 FINDINGS: There is moderate hallux valgus with bunion formation osteoarthritic change at the 1st metatarsophalangeal joint and osteoarthritis also noted at the navicular cuneiform joint. Hammertoe deformity is present at the 2nd digit. IMPRESSION: Hallux valgus with osteoarthritis with bunion formation and hammertoe deformity of the 2nd digit Dictated by: Artie Jones MD 12/04/2019 15:18 Electronically signed by Artie Jones MD in [place] 12/04/2019 15:18
== END ==
PROVIDERS: PCP Internal Medicine Adolescent Medicine; Visit Provider Podiatrist
DX: M79.672 Pain in left foot (principal); M79.671 Pain in right foot
CPT/HCPCS: 73630

== ENCOUNTER → 2020-01-03 13:45 | Outpatient (CLI) | payer MEDICARE, BC, SELFPAY ==
--- NOTE | 2020-01-03 13:50 | MM_ITS ---
PROCEDURE: MM DIG MAMM BI DX W/CAD Digital Breast Tomosynthesis Included CLINICAL INDICATION: ABN MAMM Follow-up abnormal mammogram COMPARISON: DMSB DIG MAMM-SCREEN OLGA LIDIA W/CAD from 11/16/2016 [facility] MM Dig screening mamm BI w/CAD from 11/19/2017 DXBI MM Dig mamm BI DX w/CAD from 11/17/2018 MM DIG MAMM BI DX W/CAD from 05/12/2019 US BREAST LT COMPLETE from 05/12/2019 US BREAST LT COMPLETE from 01/03/2020 TECHNIQUE: Standard CC and MLO images and 3D Tomosynthesis was obtained. R2 CAD reviewed. Spot compression Mag views are also performed FINDINGS: . average fibroglandular tissue. Faint calcifications are once again noted the inferior and lateral aspect of the right breast and do not appear significantly changed post biopsy clips are present on the right as previously noted.. Biopsy clip also noted in the left breast medially. No malignant appearing mass malignant-appearing microcalcification. Left breast ultrasound: At 12 o'clock there is an area of heterogeneous echogenicity not significantly changed and could represent fibroglandular tissue or a small intramammary lymph node. No suspicious mass is evident. IMPRESSION: Benign findings. No change with no evidence of malignancy BI-RAD Category: 2 Benign Finding(s) FOLLOW-UP: 1YR 1 Year Follow-up (A letter has been sent to the patient regarding results of the study.) Dictated by: Artie Jones MD 01/10/2020 11:16 Electronically signed by Artie Jones MD in [place] 01/10/2020 11:16
[2020-01-03 15:05] LABS: Microscopic, Urine URINE MICROSCOPIC (MICROSCOPIC)
[2020-01-03 15:33] LABS: Basophils % 0.5 % (0.1-2.0); Eosinophils # 0.1 K/mm3 (0.0-0.4); Hematocrit 29.3 % (37.0-47.0); Hemoglobin 8.2 g/dL (12.2-16.2); Lymphocytes # 1.2 K/mm3 (0.7-4.5); Lymphocytes % 18.9 % (10-50); Mean Corpuscular HGB Conc 27.9 g/dL (31.8-35.4); Mean Corpuscular Hemoglobin 21.3 pg (27.0-31.2); Mean Corpuscular Volume 76.4 fl (81-99); Monocytes # 0.6 K/mm3 (0.1-1.0); Monocytes % 8.7 % (1.7-9.3); Neutrophils # 4.5 K/mm3 (1.8-7.8); Neutrophils % 69.9 % (37.0-80.0); Platelet Count 277 K/mm3 (142-424); Red Blood Count 3.84 M/mm3 (4.20-5.40); Red Cell Distribution Width 18.7 % (11.5-17.5); White Blood Count 6.5 K/mm3 (4.8-10.8)
[2020-01-03 16:04] LABS: Bacteria,Urine Trace /lpf; WBC,Urine Occasional #/hpf (0-3)
[2020-01-03 16:10] LABS: Appearance,Urine CLEAR (Clear); Bilirubin,Urine Negative (Negative); Blood, Urine Negative (Negative); Color,Urine YELLOW (Yellow); Glucose,Urine (UA) Negative (Negative); Ketones,Urine Negative (Negative); Leukocyte Esterase,Urine Negative (Negative); Nitrate,Urine Negative (Negative); Protein,Urine Negative (Negative); Specific Gravity, Urine 1.025 (1.005-1.030); Urobilinogen,Urine 0.2 EU/dl (0.2)
[2020-01-03 17:04] LABS: Alanine Aminotransferase 14 U/L (12-78); Albumin/Globulin Ratio 1.4 (1.1-1.8); Alkaline Phosphatase 108 U/L (38-126); Anion Gap 13.9 mEq/L (5-15); Aspartate Amino Transferase 23 U/L (14-36); Blood Urea Nitrogen 18 mg/dl (7-17); Calcium 9.7 mg/dl (8.4-10.2); Carbon Dioxide 25 mmol/L (22.0-30.0); Chloride 96 mmol/L (98-107); Estimated Glomerular Filt Rate 44 ml/min (>60); GFR (African American) 53 ML/MIN (>60); Globulin 2.8 g/dL (1.3-3.2); Glucose 81 mg/dl (74-100); Potassium 3.9 mmoL/L (3.5-5.1); Sodium 131 mmol/L (136-145); Total Protein,Serum 6.8 g/dl (6.3-8.2)
[2020-01-03 17:09] LABS: C-Reactive Protein 62.1 mg/L (0-4)
[2020-01-03 17:16] LABS: Bilirubin,Total < 0.1 mg/dl (0.2-1.3)
[2020-01-03 20:04] LABS: Erythrocyte Sedimentation Rate 105 mm/hr (0-30)
[2020-01-05 11:27] LABS: Complement C3 166 mg/dL (82-167)
[2020-01-05 15:16] LABS: Anti-DNA (DS) Ab Qn <1 IU/mL (0-9)
== END ==
PROVIDERS: Internal Medicine Rheumatology; PCP Internal Medicine Adolescent Medicine; Visit Provider Internal Medicine Adolescent Medicine
DX: R92.8 Other abnormal and inconclusive findings on diagnostic imaging of breast (principal); I27.20 Pulmonary hypertension, unspecified; I73.00 Raynaud's syndrome without gangrene; M25.551 Pain in right hip; M32.9 Systemic lupus erythematosus, unspecified; M48.00 Spinal stenosis, site unspecified
CPT/HCPCS: 36415; 76641; 77062; 77066; 80053; 81001; 85025; 85651; 86140; 86161; 86225; G0279

== ENCOUNTER → 2020-02-29 18:05 | Outpatient (CLI) | payer MEDICARE, BC, SELFPAY ==
[2020-02-29 18:18] LABS: Basophils % 0.4 % (0.1-2.0); Eosinophils # 0.1 K/mm3 (0.0-0.4); Eosinophils % 1.7 % (0.1-12.0); Lymphocytes # 1.6 K/mm3 (0.7-4.5); Lymphocytes % 27.1 % (10-50); Mean Corpuscular HGB Conc 28.3 g/dL (31.8-35.4); Mean Corpuscular Volume 70.7 fl (81-99); Monocytes # 0.4 K/mm3 (0.1-1.0); Monocytes % 5.9 % (1.7-9.3); Neutrophils # 3.9 K/mm3 (1.8-7.8); Neutrophils % 64.8 % (37.0-80.0); Platelet Count 334 K/mm3 (142-424); Red Blood Count 3.42 M/mm3 (4.20-5.40); Red Cell Distribution Width 18.1 % (11.5-17.5); White Blood Count 5.9 K/mm3 (4.8-10.8)
[2020-02-29 18:31] LABS: Hemoglobin 6.8 g/dL (12.2-16.2)
[2020-02-29 19:22] LABS: Chloride 95 mmol/L (98-107)
[2020-02-29 19:23] LABS: Potassium 4.4 mmoL/L (3.5-5.1); Sodium 127 mmol/L (136-145)
[2020-02-29 19:25] LABS: Alanine Aminotransferase 12 U/L (12-78); Albumin Level 3.8 g/dl (3.5-5.0); Alkaline Phosphatase 114 U/L (38-126); Anion Gap 14.4 mEq/L (5-15); Aspartate Amino Transferase 21 U/L (14-36); Bilirubin,Total 0.3 mg/dl (0.2-1.3); Blood Urea Nitrogen 17 mg/dl (7-17); Carbon Dioxide 22 mmol/L (22.0-30.0); Estimated Glomerular Filt Rate 37 ml/min (>60); GFR (African American) 45 ML/MIN (>60)
[2020-02-29 19:26] LABS: Albumin/Globulin Ratio 1.3 (1.1-1.8); Glucose 98 mg/dl (74-100); Total Protein,Serum 6.8 g/dl (6.3-8.2)
[2020-02-29 19:57] LABS: Thyroid Stimulating Hormone 0.39 uIU/mL (0.465-4.68)
[2020-02-29 20:01] LABS: Ferritin 12.7 ng/ml (11.1-264)
[2020-03-02 09:27] LABS: Folate 8.4 ng/mL (>3.0); Vitamin B12 523 pg/mL (232-1245)
== END ==
PROVIDERS: Visit Provider Internal Medicine Adolescent Medicine
DX: D50.9 Iron deficiency anemia, unspecified (principal); E05.90 Thyrotoxicosis, unspecified without thyrotoxic crisis or storm
CPT/HCPCS: 36415; 80053; 82607; 82728; 82746; 84443; 85025

== ENCOUNTER → 2020-03-01 17:56 | Outpatient (CLI) | payer MEDICARE, BC, SELFPAY | PROVIDERS: Visit Provider Internal Medicine Adolescent Medicine | DX: D64.9 Anemia, unspecified (principal) | CPT/HCPCS: 36415; 86850 ==

== ENCOUNTER → 2020-03-02 08:57 | Outpatient (CLI) | payer MEDICARE, BC, SELFPAY ==
[2020-03-02] VITALS (22 sets, daily range): BP systolic 120–160; BP diastolic 57–72; PULSE 73–89; RESP 16–20; TEMP 36.6–36.8; O2SAT 95–100; BMI 28.3
== END ==
PROVIDERS: PCP Internal Medicine Adolescent Medicine; Visit Provider Internal Medicine Adolescent Medicine
DX: D64.9 Anemia, unspecified (principal)
CPT/HCPCS: 36415; 36430; 85014; 85018; P9016

== ENCOUNTER 2020-04-06 16:18 | Emergency (ER) | payer MEDICARE, BC, SELFPAY ==
[2020-04-06 17:13] VITALS: BP 147/71; PULSE 88; RESP 20; TEMP 36.7; O2SAT 97; BMI 27.4
--- NOTE | 2020-04-06 17:19 | HMH.EDUTC ---
[facility] [place] Clinical Impression: Low back pain Qualifiers: Chronicity: acute Back pain laterality: right Sciatica presence: with sciatica Sciatica laterality: sciatica of right side Qualified Code(s): M54.41 - Lumbago with sciatica, right side Sciatica Qualifiers: Laterality: right Qualified Code(s): M54.31 - Sciatica, right side Disposition: Home, Self-Care Condition on Discharge: Good Instructions: DI for Low Back Pain, DI for Sciatica Additional Instructions: Go home and rest. No heavy lifting. No twisting. Take the oral medications as directed. The muscle relaxer (robaxin) will make you drowsy, so don't drive or operate heavy machinery after taking it. Don't start the oral steroids (medrol dose pack) until tomorrow, since you had the shots in here today. Follow up with your regular doctor. GO TO THE ER FOR ANY WORSENING SYMPTOMS OR CONCERN, ESPECIALLY BOWEL OR BLADDER ISSUES, SADDLE AREA NUMBNESS, FEVER, ETC Prescriptions: methylPREDNISolone [Medrol] 4 mg PO DIRECTED 6 Days #21 tab.ds.pk Transmission Status: Received by [id number] Methocarbamol [Robaxin 500mg Tab] 500 mg PO BIDP PRN #30 tab PRN Reason: Muscle Spasm Transmission Status: Received by [id number] Referrals: Miller Hazel MD [Primary Care Provider] - Time of Disposition: 17:38 Medical Decision Making - Medical Records Medical records reviewed: No: I reviewed the patient's medical records. - Cecil Inquiry Pt receiving controlled substance: No Vital Signs: 04/06/20 17:13 04/06/20 17:41 Temperature 98.1 F 98.1 F Temperature Source Oral Pulse Rate 88 Pulse Rate [Right Brachial] 88 Respiratory Rate 20 20 Blood Pressure 147/71 H Blood Pressure [Right Arm] 147/71 H Blood Pressure Mean [Right Arm] 96 Blood Pressure Source [Right Arm] Automatic Cuff Blood Pressure Position [Right Arm] Sitting 02 Sat by Pulse Oximetry 97 Oxygen Delivery Method Room Air Orders (Tests/Meds): ED MEDICATIONS Discontinued Medications Generic Name Dose Route Start Last Admin Trade Name Freq PRN Reason Stop Dose Admin Methylprednisolone Sodium Succinate 125 mg 04/06/20 17:24 04/06/20 17:30 Solu-Medrol 125mg/2ml Vial IM 04/06/20 17:25 125 mg ONCE ONE Administration [facility] [place] - General Stated complaint: Back spasms r side down into hip area Time Seen by Provider: 04/06/20 17:19 Mode of Arrival: Ambulatory Source of Information: Patient Limitations: No Limitations Description of Symptoms (Recalled from Triage Doc. by RN): PATIENT C/O RIGHT LOWER BACK PAIN THAT RADIATES DOWN HER LEG X 3 DAYS HEENT Symptoms (Recalled from RN notes): No Resp Symptoms (Recalled from RN notes): No Skin Symptoms (Recalled from RN notes): No MS Symptoms (Recalled from RN notes): Yes Functional Status (Recalled from RN notes): WNL - History of Present Illness Provider Complaint: She c/o right lower back pain that radiates down her right leg at times. - Related Data Home Medications Medication Instructions Recorded Confirmed chlorthalidone 25 mg tablet 25 mg PO DAILY tab 11/10/17 02/05/20 donepezil 10 mg tablet 10 mg PO HS 11/10/17 02/05/20 dorzolamide 22.3 mg-timolol 6.8 1 drp OPHTHALMIC BID 11/10/17 02/05/20 mg/mL eye drops fluticasone propionate 50 2 spry INTRANASAL DAILY 11/10/17 02/05/20 mcg/actuation nasal spray,suspension pantoprazole 40 mg tablet,delayed 40 mg PO DAILY 11/10/17 02/05/20 release simvastatin 20 mg tablet 20 mg PO HS 11/10/17 02/05/20 methimazole 5 mg tablet 5 mg PO DAILY 90 Days tab 11/22/17 02/05/20 montelukast 10 mg tablet 10 mg PO DAILY 90 Days tab 11/22/17 02/05/20 mycophenolate mofetil 250 mg 1,000 mg PO BID 90 Days #450 11/22/17 02/05/20 capsule nifedipine 60 mg tablet,extended 60 mg PO DAILY 11/22/17 02/05/20 release ferrous gluconate 236 mg (27 mg 236 mg PO DAILY tab 08/03/18 02/05/20 iron) tablet ascorbate calcium (vitamin C) 500 500
[2020-04-06 17:41] VITALS: BP 147/71; PULSE 88; RESP 20; TEMP 36.7; O2SAT 97
== END 2020-04-06 17:45 | disposition home or self-care (01) ==
PROVIDERS: Emergency Provider Nurse Practitioner Family; PCP Internal Medicine Adolescent Medicine
DX: M54.41 Lumbago with sciatica, right side (principal); I73.9 Peripheral vascular disease, unspecified; I10 Essential (primary) hypertension; E78.5 Hyperlipidemia, unspecified; K21.9 Gastro-esophageal reflux disease without esophagitis; L93.0 Discoid lupus erythematosus; Z86.718 Personal history of other venous thrombosis and embolism; Z79.01 Long term (current) use of anticoagulants; Z88.5 Allergy status to narcotic agent; Z87.891 Personal history of nicotine dependence; Z79.899 Other long term (current) drug therapy
CPT/HCPCS: G0463; 96372; 99201

== ENCOUNTER → 2020-05-15 13:39 | Outpatient (CLI) | payer MEDICARE, BC, SELFPAY ==
[2020-05-15 14:11] LABS: Basophils % 0.3 % (0.1-2.0); Eosinophils # 0.1 K/mm3 (0.0-0.4); Eosinophils % 2.3 % (0.1-12.0); Hematocrit 36.4 % (37.0-47.0); Hemoglobin 11.2 g/dL (12.2-16.2); Lymphocytes # 1.2 K/mm3 (0.7-4.5); Lymphocytes % 20.9 % (10-50); Mean Corpuscular HGB Conc 30.6 g/dL (31.8-35.4); Mean Corpuscular Hemoglobin 23.6 pg (27.0-31.2); Mean Corpuscular Volume 77.1 fl (81-99); Mean Platelet Volume 8.5 fl (7.4-10.4); Monocytes # 0.5 K/mm3 (0.1-1.0); Monocytes % 7.7 % (1.7-9.3); Neutrophils % 68.9 % (37.0-80.0); Platelet Count 236 K/mm3 (142-424); Red Blood Count 4.72 M/mm3 (4.20-5.40); White Blood Count 5.8 K/mm3 (4.8-10.8)
[2020-05-28 15:15] LABS: Hemoglobin (Hgb) Solubility Negative (Negative)
== END ==
PROVIDERS: Visit Provider Internal Medicine Hematology & Oncology
DX: I27.20 Pulmonary hypertension, unspecified (principal); I73.00 Raynaud's syndrome without gangrene; M25.551 Pain in right hip; M32.9 Systemic lupus erythematosus, unspecified; M48.00 Spinal stenosis, site unspecified
CPT/HCPCS: 36415; 83021; 85025; 85660

== ENCOUNTER → 2020-06-13 13:45 | Outpatient (CLI) | payer MEDICARE, BC, SELFPAY ==
[2020-06-13 13:54] LABS: Microscopic, Urine URINE MICROSCOPIC (MICROSCOPIC)
[2020-06-13 14:26] LABS: Basophils % 0.3 % (0.1-2.0); Eosinophils # 0.1 K/mm3 (0.0-0.4); Eosinophils % 2.2 % (0.1-12.0); Hematocrit 37.9 % (37.0-47.0); Hemoglobin 11.4 g/dL (12.2-16.2); Lymphocytes # 1.2 K/mm3 (0.7-4.5); Lymphocytes % 18.6 % (10-50); Mean Corpuscular Hemoglobin 24.1 pg (27.0-31.2); Mean Corpuscular Volume 80.2 fl (81-99); Mean Platelet Volume 8.1 fl (7.4-10.4); Monocytes # 0.4 K/mm3 (0.1-1.0); Neutrophils # 4.7 K/mm3 (1.8-7.8); Neutrophils % 72.8 % (37.0-80.0); Platelet Count 235 K/mm3 (142-424); Red Blood Count 4.73 M/mm3 (4.20-5.40); White Blood Count 6.5 K/mm3 (4.8-10.8)
[2020-06-13 14:32] LABS: Appearance,Urine CLEAR (Clear); Bilirubin,Urine Negative (Negative); Blood, Urine Negative (Negative); Color,Urine YELLOW (Yellow); Glucose,Urine (UA) Negative (Negative); Ketones,Urine Negative (Negative); Leukocyte Esterase,Urine Negative (Negative); Nitrate,Urine Negative (Negative); Protein,Urine Negative (Negative); Urobilinogen,Urine 0.2 EU/dl (0.2)
[2020-06-13 15:29] LABS: Erythrocyte Sedimentation Rate 22 mm/hr (0-30)
[2020-06-13 15:35] LABS: Squamous Epithelial Cell,Urine Occasional #/hpf (0-5); WBC,Urine Occasional #/hpf (0-3)
[2020-06-13 16:47] LABS: Chloride 98 mmol/L (98-107); Potassium 4.3 mmoL/L (3.5-5.1); Sodium 131 mmol/L (136-145)
[2020-06-13 16:50] LABS: Alanine Aminotransferase 13 U/L (12-78); Albumin Level 3.8 g/dl (3.5-5.0); Albumin/Globulin Ratio 1.4 (1.1-1.8); Alkaline Phosphatase 97 U/L (38-126); Anion Gap 12.3 mEq/L (5-15); Aspartate Amino Transferase 28 U/L (14-36); Bilirubin,Total 0.4 mg/dl (0.2-1.3); Blood Urea Nitrogen 18 mg/dl (7-17); Carbon Dioxide 25 mmol/L (22.0-30.0); Estimated Glomerular Filt Rate 62 ml/min (>60); GFR (African American) 74 ML/MIN (>60); Globulin 2.7 g/dL (1.3-3.2); Total Protein,Serum 6.5 g/dl (6.3-8.2)
[2020-06-13 16:51] LABS: Calcium 9.6 mg/dl (8.4-10.2); Glucose 85 mg/dl (74-100)
[2020-06-13 17:13] LABS: C-Reactive Protein 66.7 mg/L (0-4)
[2020-06-15 18:16] LABS: Anti-DNA (DS) Ab Qn <1 IU/mL (0-9); Complement C3 166 mg/dL (82-167)
== END ==
PROVIDERS: Visit Provider Internal Medicine Rheumatology
DX: I27.20 Pulmonary hypertension, unspecified (principal); I73.00 Raynaud's syndrome without gangrene; M25.551 Pain in right hip; M32.9 Systemic lupus erythematosus, unspecified; M48.00 Spinal stenosis, site unspecified
CPT/HCPCS: 36415; 80053; 81001; 85025; 85651; 86140; 86161; 86225

== ENCOUNTER → 2020-07-01 12:48 | Outpatient (CLI) | payer MEDICARE, BC, SELFPAY ==
--- NOTE | 2020-07-01 12:53 | CT_ITS ---
PROCEDURE: CT CHEST WO CON CLINICAL INDICATION: DYSPNEA lupus, High resolution COMPARISON: CT CTAC CTA-CHEST from 02/03/2016 CT ABDPELW/O CT ABD PELVIS W/O CONTRAST from 07/31/2017 TECHNIQUE: Axial images obtained with sagittal and coronal reformats. All CT scans at the facility use one or more dose reduction, viz: automated exposure control, ma/kV adjustment per patient size (including targeted exams where dose is matched to indication, i.e. head), or iterative reconstruction technique. FINDINGS: Calcified nodes are present in the mediastinum and wendie. Coronary artery calcifications are also present. No mediastinal or hilar mass or adenopathy. There is evidence of old granulomatous disease with a calcified granuloma in the right upper lobe. Noncalcified 5 mm nodules present in the right upper lobe laterally unchanged. There is scarring in the lung apices and in the left lung base. No effusions or infiltrates are evident. There is mild degenerative change in the thoracic spine. Postsurgical changes are present in the lumbar spine with inter pedicular screws with connecting rods beginning at L1. High-resolution images are obtained and demonstrate a few scattered areas of scarring. However, there is no convincing evidence of interstitial lung disease with no interlobular septal thickening. Upper abdominal images show a hyperdense nodule along the upper pole of the left kidney measuring 1.8 cm unchanged consistent with a hyperdense renal cyst. IMPRESSION: Overall stable CT appearance of the chest with scattered areas of scarring and a stable 5 mm nodule right upper lobe. No convincing evidence of interstitial lung disease. Dictated by: Artie Jones MD 07/02/2020 11:37 Artie Jones MD in [place] 07/02/2020 11:37
[2020-07-01 14:19] LABS: Creatinine,Urine Random 41 mg/dL (Not Estab.)
[2020-07-01 15:08] LABS: Basophils % 0.5 % (0.1-2.0); Eosinophils # 0.1 K/mm3 (0.0-0.4); Eosinophils % 2.7 % (0.1-12.0); Hematocrit 39.1 % (37.0-47.0); Hemoglobin 11.5 g/dL (12.2-16.2); Lymphocytes # 1.1 K/mm3 (0.7-4.5); Lymphocytes % 22.9 % (10-50); Mean Corpuscular HGB Conc 29.3 g/dL (31.8-35.4); Mean Corpuscular Hemoglobin 24.5 pg (27.0-31.2); Mean Corpuscular Volume 83.6 fl (81-99); Mean Platelet Volume 8.7 fl (7.4-10.4); Monocytes # 0.5 K/mm3 (0.1-1.0); Monocytes % 10.1 % (1.7-9.3); Neutrophils # 2.9 K/mm3 (1.8-7.8); Neutrophils % 63.7 % (37.0-80.0); Platelet Count 236 K/mm3 (142-424); Red Blood Count 4.68 M/mm3 (4.20-5.40); Red Cell Distribution Width 18.3 % (11.5-17.5); White Blood Count 4.6 K/mm3 (4.8-10.8)
[2020-07-01 15:14] LABS: Chloride 100 mmol/L (98-107); Sodium 132 mmol/L (136-145)
[2020-07-01 15:15] LABS: Albumin Level 4.1 g/dl (3.5-5.0); Potassium 4.1 mmoL/L (3.5-5.1)
[2020-07-01 15:16] LABS: Iron 90 ug/dL (37-170)
[2020-07-01 15:17] LABS: Anion Gap 12.1 mEq/L (5-15); Blood Urea Nitrogen 16 mg/dl (7-17); Carbon Dioxide 24 mmol/L (22.0-30.0); Estimated Glomerular Filt Rate 55 ml/min (>60); GFR (African American) 66 ML/MIN (>60)
[2020-07-01 15:18] LABS: Calcium 9.9 mg/dl (8.4-10.2); Glucose 95 mg/dl (74-100); Phosphorous 4.2 mg/dl (2.5-4.5)
[2020-07-01 15:25] LABS: Total Iron Binding Capacity 272 ug/dL (265-497)
[2020-07-01 15:35] LABS: 25-OH Vitamin D, Total 48.8 ng/mL (30-100)
[2020-07-01 15:52] LABS: Ferritin 62.3 ng/ml (11.1-264)
[2020-07-06 10:25] LABS: Tandem-R Ostase 19.4 ug/L (.)
== END ==
PROVIDERS: Internal Medicine Hematology & Oncology; Internal Medicine Nephrology; PCP Internal Medicine Adolescent Medicine; Visit Provider Internal Medicine Critical Care Medicine
DX: R06.00 Dyspnea, unspecified (principal); M32.19 Other organ or system involvement in systemic lupus erythematosus; N18.31 Chronic kidney disease, stage 3a; D64.9 Anemia, unspecified
CPT/HCPCS: 36415; 71250; 80069; 82306; 82570; 82728; 83540; 83550; 84080; 84155; 85025

== ENCOUNTER → 2020-07-09 11:25 | Outpatient (POV) | payer MEDICARE, BC, SELFPAY | PROVIDERS: Visit Provider Internal Medicine Nephrology | DX: Z00.00 Encounter for general adult medical examination without abnormal findings (principal) ==

== ENCOUNTER → 2020-08-12 14:22 | Outpatient (CLI) | payer MEDICARE, BC, SELFPAY ==
[2020-08-12 15:35] LABS: Chloride 99 mmol/L (98-107); Potassium 3.4 mmoL/L (3.5-5.1); Sodium 133 mmol/L (136-145)
[2020-08-12 15:38] LABS: Anion Gap 9.4 mEq/L (5-15); Blood Urea Nitrogen 30 mg/dl (7-17); Calcium 9.7 mg/dl (8.4-10.2); Carbon Dioxide 28 mmol/L (22.0-30.0); Estimated Glomerular Filt Rate 40 ml/min (>60); GFR (African American) 49 ML/MIN (>60); Glucose 95 mg/dl (74-100)
== END ==
PROVIDERS: Visit Provider Internal Medicine Cardiovascular Disease
DX: R06.00 Dyspnea, unspecified (principal)
CPT/HCPCS: 36415; 80048

== ENCOUNTER → 2020-08-26 11:58 | Outpatient (CLI) | payer MEDICARE, BC, SELFPAY ==
--- NOTE | 2020-08-26 12:06 | XR_ITS ---
PROCEDURE: XR KNEE RT 3V CLINICAL INDICATION: ACUTE PAIN OF RT KNEE, SLE IN ADULT COMPARISON: No exams were available for comparison FINDINGS: No fracture or dislocation. No lytic or blastic change. There is normal mineralization. There are mild tricompartmental osteoarthritic changes with chondrocalcinosis of the medial and lateral meniscus. No acute fracture or dislocation. Other findings:None. IMPRESSION: Osteoarthritis with chondrocalcinosis Dictated by: Artie Jones MD 08/26/2020 14:37 Artie Jones MD in [place] 08/26/2020 14:37
[2020-08-26 13:12] LABS: Basophils % 0.3 % (0.1-2.0); Eosinophils # 0.3 K/mm3 (0.0-0.4); Eosinophils % 3.7 % (0.1-12.0); Hematocrit 44.3 % (37.0-47.0); Hemoglobin 13.7 g/dL (12.2-16.2); Lymphocytes # 1.1 K/mm3 (0.7-4.5); Lymphocytes % 14.2 % (10-50); Mean Corpuscular Hemoglobin 26.8 pg (27.0-31.2); Mean Corpuscular Volume 86.4 fl (81-99); Mean Platelet Volume 8.1 fl (7.4-10.4); Monocytes # 0.4 K/mm3 (0.1-1.0); Monocytes % 4.9 % (1.7-9.3); Neutrophils % 76.8 % (37.0-80.0); Platelet Count 220 K/mm3 (142-424); Red Blood Count 5.13 M/mm3 (4.20-5.40); Red Cell Distribution Width 16.5 % (11.5-17.5); White Blood Count 7.9 K/mm3 (4.8-10.8)
[2020-08-26 14:45] LABS: Anion Gap 12.3 mEq/L (5-15); Blood Urea Nitrogen 19 mg/dl (7-17); Calcium 9.5 mg/dl (8.4-10.2); Carbon Dioxide 23 mmol/L (22.0-30.0); Chloride 103 mmol/L (98-107); Estimated Glomerular Filt Rate 55 ml/min (>60); GFR (African American) 66 ML/MIN (>60); Glucose 68 mg/dl (74-100); Potassium 4.3 mmoL/L (3.5-5.1); Sodium 134 mmol/L (136-145)
[2020-08-26 14:50] LABS: C-Reactive Protein 80.9 mg/L (0-4)
[2020-08-26 15:57] LABS: Erythrocyte Sedimentation Rate 19 mm/hr (0-30)
== END ==
PROVIDERS: PCP Nurse Practitioner Family; Visit Provider Nurse Practitioner Family
DX: M32.9 Systemic lupus erythematosus, unspecified (principal); M25.561 Pain in right knee
CPT/HCPCS: 36415; 73562; 80048; 84550; 85025; 85651; 86140

== ENCOUNTER → 2020-09-17 15:36 | Outpatient (CLI) | payer MEDICARE, BC, SELFPAY ==
[2020-09-17 15:55] LABS: Microscopic, Urine URINE MICROSCOPIC (MICROSCOPIC)
[2020-09-17 16:17] LABS: Basophils # 0.1 K/mm3 (0-0.2); Basophils % 0.8 % (0.1-2.0); Eosinophils # 0.3 K/mm3 (0.0-0.4); Eosinophils % 4.7 % (0.1-12.0); Hematocrit 42.7 % (37.0-47.0); Hemoglobin 13.2 g/dL (12.2-16.2); Lymphocytes # 1.4 K/mm3 (0.7-4.5); Lymphocytes % 20.1 % (10-50); Mean Corpuscular HGB Conc 30.9 g/dL (31.8-35.4); Mean Corpuscular Hemoglobin 26.9 pg (27.0-31.2); Mean Corpuscular Volume 87.3 fl (81-99); Mean Platelet Volume 8.5 fl (7.4-10.4); Monocytes # 0.4 K/mm3 (0.1-1.0); Monocytes % 5.2 % (1.7-9.3); Neutrophils # 4.7 K/mm3 (1.8-7.8); Neutrophils % 69.3 % (37.0-80.0); Platelet Count 227 K/mm3 (142-424); Red Blood Count 4.89 M/mm3 (4.20-5.40); Red Cell Distribution Width 16.6 % (11.5-17.5); White Blood Count 6.8 K/mm3 (4.8-10.8)
[2020-09-17 16:33] LABS: Appearance,Urine CLEAR (Clear); Bilirubin,Urine Negative (Negative); Blood, Urine Negative (Negative); Color,Urine YELLOW (Yellow); Glucose,Urine (UA) Negative (Negative); Ketones,Urine Negative (Negative); Leukocyte Esterase,Urine Negative (Negative); Nitrate,Urine Negative (Negative); Protein,Urine Negative (Negative); Urobilinogen,Urine 0.2 EU/dl (0.2)
[2020-09-17 17:07] LABS: WBC,Urine Occasional #/hpf (0-3)
[2020-09-17 17:29] LABS: Alanine Aminotransferase 21 U/L (12-78); Albumin Level 4.1 g/dl (3.5-5.0); Albumin/Globulin Ratio 1.3 (1.1-1.8); Alkaline Phosphatase 109 U/L (38-126); Aspartate Amino Transferase 34 U/L (14-36); Bilirubin,Total 0.4 mg/dl (0.2-1.3); Blood Urea Nitrogen 21 mg/dl (7-17); Calcium 10.1 mg/dl (8.4-10.2); Carbon Dioxide 30 mmol/L (22.0-30.0); Chloride 100 mmol/L (98-107); Estimated Glomerular Filt Rate 37 ml/min (>60); GFR (African American) 45 ML/MIN (>60); Globulin 3.2 g/dL (1.3-3.2); Glucose 76 mg/dl (74-100); Sodium 137 mmol/L (136-145); Total Protein,Serum 7.3 g/dl (6.3-8.2); Uric Acid 7.8 mg/dl (2.5-6.2)
[2020-09-17 17:34] LABS: C-Reactive Protein 32.5 mg/L (0-4)
[2020-09-17 20:27] LABS: Erythrocyte Sedimentation Rate 20 mm/hr (0-30)
== END ==
PROVIDERS: Visit Provider Internal Medicine Rheumatology
DX: M25.561 Pain in right knee (principal); M25.551 Pain in right hip; I73.00 Raynaud's syndrome without gangrene; M32.9 Systemic lupus erythematosus, unspecified; M48.00 Spinal stenosis, site unspecified; I27.20 Pulmonary hypertension, unspecified
CPT/HCPCS: 36415; 80053; 81001; 84550; 85025; 85651; 86140

== ENCOUNTER → 2020-10-01 12:36 | Outpatient (CLI) | payer MEDICARE, BC, SELFPAY ==
[2020-10-02 09:03] LABS: Covid-19 Nasal PCR Sendout P&C NEGATIVE
== END ==
PROVIDERS: PCP Internal Medicine Adolescent Medicine; Visit Provider Nurse Practitioner Family
DX: Z11.52 Encounter for screening for COVID-19 (principal)
CPT/HCPCS: U0004

== ENCOUNTER → 2020-10-09 11:54 | Outpatient (CLI) | payer MEDICARE, BC, SELFPAY ==
--- NOTE | 2020-10-09 12:01 | XR_ITS ---
PROCEDURE: XR LUMBAR SPINE MIN 4V CLINICAL INDICATION: LOW BACK PAIN COMPARISON: CR LS5 LUMBAR SPINE 5 VIEWS from 02/28/[address] ABDOMEN PELVIS W CON from 09/09/2019 FINDINGS: Status post extensive lumbar surgery with inter pedicular screws at L1, L2, L3, L4, L5, and S1 also with cortical screws extending through the SI joints on both sides from the lumbar region. There is good alignment. Prior laminectomy L2-S1. There are clips present in the inter pedicular region at L1-L2 L2-L3 and L5-S1. There is anterolisthesis of L4 on L5 of 5 mm. Degenerative disc disease is present from L1-S1. No acute fracture or dislocation is identified. Prominent anterior osteophytes are present at L5-S1. There is generalized vascular calcification. Sclerosis is present at the SI joints. IMPRESSION: Extensive postsurgical changes with degenerative changes as described above. No acute fracture. Dictated by: Artie Jones MD 10/09/2020 13:30 Artie Jones MD in [place] 10/09/2020 13:30
[2020-10-09 12:36] LABS: Microscopic, Urine URINE MICROSCOPIC (MICROSCOPIC)
--- NOTE | 2020-10-09 12:57 | MR_ITS ---
PROCEDURE: MR LUMBAR SPINE WO CON CLINICAL INDICATION: LOW BACK PAIN HX 4 BACK SURGERIES. RT SIDED LBP PAIN, NUMBNESS, AND TINGLING DOWN RT LEG. NO INJURY. PRIOR X-RAY 10-09-20 COMPARISON: MR SPLUMBWO MR lumbar spine wo con from 04/12/2018 TECHNIQUE: Standard multiplanar multiecho sequences are performed without contrast. 3-D MIP and myelographic images are also rendered and reviewed FINDINGS: There has been extensive multi lumbar back surgery. Inter pedicular screws are present from L1-S1 with significant artifact from the lumbar surgery. There is normal alignment. The spinal cord ends at the T12 level. There is a central herniated disc with inferior extrusion at T12-L1. the disc is extruded inferiorly for length 13 mm. The disc is impinging upon the central aspect of the conus medullaris. Facet hypertrophic changes are present at this level as well causing lateral recess narrowing and canal stenosis. Artifact obscures fine detail of the region posteriorly. Extensive artifact obscures the remaining lumbar spine. There does appear to be some mild degenerative disc disease at L3-L4 L4-5 and L5-S1 with some minimal bulging disc at L5-S1. Postsurgical fluid collection noted in the surgical bed posterior to the spinal canal from L2 to S1. There are some septations within this fluid collection consistent with cine bowman I within postsurgical seroma. IMPRESSION: 1. Postsurgical changes are present from L1-S1 with extensive artifact obscuring adequate evaluation of the disc spaces at these regions. 2. Central disc herniation with inferior extrusion at T12-L1 with impingement upon the conus medullaris with canal stenosis from the disc herniation and facet and ligamentum hypertrophy with significant bilateral lateral recess narrowing and canal stenosis 3. 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
[2020-10-09 13:20] LABS: Appearance,Urine CLEAR (Clear); Bilirubin,Urine Negative (Negative); Blood, Urine Negative (Negative); Color,Urine YELLOW (Yellow); Glucose,Urine (UA) Negative (Negative); Ketones,Urine Negative (Negative); Leukocyte Esterase,Urine TRACE (Negative); Nitrate,Urine Negative (Negative); Protein,Urine Negative (Negative); Specific Gravity, Urine 1.015 (1.005-1.030); Urobilinogen,Urine 0.2 EU/dl (0.2)
[2020-10-09 13:34] LABS: Basophils # 0.1 K/mm3 (0-0.2); Eosinophils # 2.6 K/mm3 (0.0-0.4); Eosinophils % 38.2 % (0.1-12.0); Hematocrit 41.6 % (37.0-47.0); Hemoglobin 13.2 g/dL (12.2-16.2); Lymphocytes # 2.3 K/mm3 (0.7-4.5); Lymphocytes % 33.4 % (10-50); Mean Corpuscular HGB Conc 31.8 g/dL (31.8-35.4); Mean Corpuscular Hemoglobin 27.9 pg (27.0-31.2); Mean Corpuscular Volume 87.8 fl (81-99); Mean Platelet Volume 8.9 fl (7.4-10.4); Monocytes # 0.5 K/mm3 (0.1-1.0); Monocytes % 7.3 % (1.7-9.3); Neutrophils # 1.4 K/mm3 (1.8-7.8); Neutrophils % 20.1 % (37.0-80.0); Platelet Count 174 K/mm3 (142-424); Red Blood Count 4.74 M/mm3 (4.20-5.40); Red Cell Distribution Width 17.2 % (11.5-17.5); White Blood Count 6.9 K/mm3 (4.8-10.8)
[2020-10-09 14:39] LABS: Alanine Aminotransferase 24 U/L (12-78); Albumin Level 4.2 g/dl (3.5-5.0); Albumin/Globulin Ratio 1.5 (1.1-1.8); Alkaline Phosphatase 91 U/L (38-126); Aspartate Amino Transferase 38 U/L (14-36); Bilirubin,Total 0.5 mg/dl (0.2-1.3); Blood Urea Nitrogen 18 mg/dl (7-17); Calcium 9.6 mg/dl (8.4-10.2); Carbon Dioxide 26 mmol/L (22.0-30.0); Chloride 103 mmol/L (98-107); Estimated Glomerular Filt Rate 44 ml/min (>60); GFR (African American) 53 ML/MIN (>60); Globulin 2.8 g/dL (1.3-3.2); Glucose 82 mg/dl (74-100); Sodium 133 mmol/L (136-145); Uric Acid 7.9 mg/dl (2.5-6.2)
[2020-10-09 14:52] LABS: Erythrocyte Sedimentation Rate 8 mm/hr (0-30)
[2020-10-09 15:08] LABS: WBC,Urine Occasional #/hpf (0-3)
[2020-10-09 15:09] LABS: Bacteria,Urine Trace /lpf
== END ==
PROVIDERS: Internal Medicine Rheumatology; PCP Internal Medicine Adolescent Medicine; Visit Provider Neurological Surgery
DX: M54.5 Low back pain (principal); M25.551 Pain in right hip; M25.561 Pain in right knee; I73.00 Raynaud's syndrome without gangrene; I27.20 Pulmonary hypertension, unspecified; I10 Essential (primary) hypertension
CPT/HCPCS: 36415; 72110; 72148; 76376; 80053; 81001; 84550; 85025; 85651; 86140

== ENCOUNTER → 2020-10-22 13:55 | Outpatient (CLI) | payer MEDICARE, BC, SELFPAY ==
--- NOTE | 2020-10-22 14:07 | CT_ITS ---
PROCEDURE: CT LUMBAR SPINE WO CON CLINICAL HISTORY: Low right back pain [id number], bilateral leg pain. Xrays/mr on pacs COMPARISON: CT ABDPELW/O CT ABD PELVIS W/O CONTRAST from 01/21/[address] ABDOMEN PELVIS W CON from 09/09/2019 CR XR LUMBAR SPINE MIN 4V from 10/09/2020 MR MR LUMBAR SPINE WO CON from 10/09/2020 TECHNIQUE: Axial images obtained with sagittal and coronal reformats. All CT scans at the facility use one or more dose reduction, viz: automated exposure control, ma/kV adjustment per patient size (including targeted exams where dose is matched to indication, i.e. head), or iterative reconstruction technique. FINDINGS: Axial images are obtained from T11-S1. Inter pedicular screws are present L1-S1 with long lag screws from the S2 level oblique in nature into the ilium on both sides. There is extensive artifact from inter pedicular screws. There has been L1-L2: Prior laminectomy with inter pedicular screws in place. Small left paracentral disc osteophyte complex is present. There is a small metallic device within the central aspect of the disc. L2-L3: Postsurgical changes with laminectomy. There is an osteophyte along the inferior aspect of the foramen at L2-L3 on the right causing right-sided foraminal narrowing. This is best depicted on sagittal 26 series 602. Small metallic device is present in the disc space at L2-L3 centrally. L3-L4: Prior laminectomy. Extensive hypertrophic changes are present at the facets from the prior posterior fusion. L4-5: Postsurgical changes from prior laminectomy with posterior fusion L5-S1: Postsurgical changes from prior posterior laminectomy. There is a small disc osteophyte complex. Foraminal narrowing is on the left from endplate spurring. There is mild right foraminal narrowing as well. There is prominent lucency around the lag screw in the region of the right ilium which may be related to loosening or movement occurring at this region. Infection would be included in the differential diagnosis. prominent soft tissue density is present in the subcutaneous tissues centrally within the lumbar region consistent with the seroma noted on the recent MRI. There is a hyperdense left renal nodule measuring approximately 2 cm with an average Hounsfield density of 74. This is not significantly changed since 01/21/2014 . This is at the upper pole of the left kidney IMPRESSION: Postsurgical changes of the lumbar spine with degenerative changes also present. These are described in detail above. Please see above for detailed description at each level. Suspect loosening of the lag screw in the right ilium with prominent lucency around that screw. Differential diagnosis includes infection. Please correlate with clinical parameters. Dictated by: Artie Jones MD 10/23/2020 09:41 Artie Jones MD in [place] 10/23/2020 09:41
== END ==
PROVIDERS: PCP Internal Medicine Adolescent Medicine; Visit Provider Neurological Surgery
DX: M54.5 Low back pain (principal)
CPT/HCPCS: 72131

== ENCOUNTER → 2020-11-11 12:56 | Outpatient (POV) | payer MEDICARE, BC, SELFPAY | PROVIDERS: Visit Provider Nurse Practitioner Family | DX: Z00.00 Encounter for general adult medical examination without abnormal findings (principal) ==

== ENCOUNTER → 2020-11-14 12:11 | Outpatient (CLI) | payer MEDICARE, BC, SELFPAY ==
[2020-11-16 06:39] LABS: Fats, Neutral Normal (.); Fats, Total Normal (.)
[2020-11-19 17:39] LABS: Pancreatic Elastase, Fecal >500 (>200)
== END ==
PROVIDERS: Visit Provider Nurse Practitioner Family
DX: R19.4 Change in bowel habit (principal)
CPT/HCPCS: 82656; 82705

== ENCOUNTER 2021-01-13 15:24 | Emergency (ER) | payer MEDICARE, BC, SELFPAY ==
[2021-01-13] VITALS (11 sets, daily range): BP systolic 145–189; BP diastolic 70–85; PULSE 68–84; RESP 20; TEMP 36.6–37.1; O2SAT 62–999; BMI 31.8
--- NOTE | 2021-01-13 15:36 | ECG_ITS ---
APPROVED REPORT Exam: Resting ECG HR:76 bpm ECG Measurements Heart Rate 76 AXES ME 134 P 60 QRSd 74 QRS 26 QT 370 T -16 QTc 416 Conclusion Normal sinus rhythm Old anteroseptal changes Abnormal ECG Electronically signed by : Miller Hazel, 01/13/2021 18:03:46
--- NOTE | 2021-01-13 16:12 | XR_ITS ---
PROCEDURE INFORMATION: Exam: XR Chest Exam date and time: 01/13/2021 4:12 PM Age: 75 years old Clinical indication: Shortness of breath; Additional info: Dyspnea TECHNIQUE: Imaging protocol: XR of the chest. Views: 1 view. COMPARISON: CT CHEST WO CON 07/01/2020 12:57 PM FINDINGS: Lungs: There is an unchanged calcified granuloma projecting over the mid right lung. No focal consolidation. Pleural spaces: No evidence of pleural effusion or pneumothorax. Heart/Mediastinum: The cardiomediastinal silhouette is stable. Bones/joints: No acute displaced fracture. Stable postsurgical changes of the right shoulder and partially imaged thoracolumbar spinal fixation hardware. IMPRESSION: No evidence of acute abnormality.
--- NOTE | 2021-01-13 16:29 | HMH.EDSOB ---
ED Disposition Clinical Impression: COPD exacerbation Disposition: Home, Self-Care Condition on Discharge: Good Instructions: DI for Chronic Obstructive Pulmonary Disease Additional Instructions: Follow-up with your primary care physician within 3 to 4 days following discharge for review of symptom improvement. Use your albuterol inhaler every 4 hours as needed and take the steroids daily and finish the entire course of the antibiotics. Please return to the ED if you develop chest pain or your shortness of breath severely worsens. Prescriptions: Doxycycline Hyclate [Doxycycline 100mg Capsule] 100 mg PO Q12 10 Days #20 cap Transmission Status: Pending to [id number] predniSONE [Prednisone 50mg Tab] 50 mg PO DAILY 5 Days #5 tab Transmission Status: Pending to [facility] Referrals: Miller Hazel MD [Primary Care Provider] - Time of Disposition: 20:48 - Critical Care Critical Care Time: No Attestation: On 01/13/21, the high probability of a clinically significant, sudden or life threatening deterioration of the following system(s) required my full and direct attention, intervention and personal management. The time I documented below is in addition to time spent performing reported procedures but includes the following listed in this critical care notation. Medical Decision Making - Medical Records Medical records reviewed: Yes: I reviewed the patient's medical records. - Cecil Inquiry Pt receiving controlled substance: No Vital Signs: 01/13/21 15:26 01/13/21 15:33 01/13/21 16:22 Temperature 98.7 F Temperature Source Oral Pulse Rate 80 73 Pulse Rate [Left Radial] 68 Respiratory Rate 20 Blood Pressure 158/71 H 148/71 H Blood Pressure [Right Arm] 158/71 H Blood Pressure Mean 89 86 Blood Pressure Mean [Right Arm] 100 Blood Pressure Source [Right Arm] Automatic Cuff Blood Pressure Position [Right Arm] Sitting 02 Sat by Pulse Oximetry 99 98 92 L Oxygen Delivery Method Room Air 01/13/21 16:30 01/13/21 16:45 01/13/21 16:53 Temperature Temperature Source Pulse Rate 74 71 75 Pulse Rate [Left Radial] Respiratory Rate Blood Pressure 148/70 H 154/79 H 154/79 H Blood Pressure [Right Arm] Blood Pressure Mean 96 Blood Pressure Mean [Right Arm] Blood Pressure Source [Right Arm] Blood Pressure Position [Right Arm] 02 Sat by Pulse Oximetry 97 97 62 L Oxygen Delivery Method 01/13/21 17:14 01/13/21 18:00 01/13/21 18:30 Temperature Temperature Source Pulse Rate 73 Pulse Rate [Left Radial] Respiratory Rate Blood Pressure 161/78 H 157/72 H 145/71 H Blood Pressure [Right Arm] Blood Pressure Mean 92 93 Blood Pressure Mean [Right Arm] Blood Pressure Source [Right Arm] Blood Pressure Position [Right Arm] 02 Sat by Pulse Oximetry 96 999 H 100 Oxygen Delivery Method Room Air Room Air 01/13/21 19:31 Temperature Temperature Source Pulse Rate 83 Pulse Rate [Left Radial] Respiratory Rate Blood Pressure 189/84 H Blood Pressure [Right Arm] Blood Pressure Mean 119 Blood Pressure Mean [Right Arm] Blood Pressure Source [Right Arm] Blood Pressure Position [Right Arm] 02 Sat by Pulse Oximetry 100 Oxygen Delivery Method Room Air - Lab Data Lab Results 01/13/21 16:45: WBC 6.0, RBC 3.84 L, Hgb 10.8 L, Hct 34.1 L, MCV 88.9, MCH 28.2, MCHC 31.7 L, RDW 15.3, Plt Count 483 H, MPV 7.7, Neut % (Auto) 51.5, Lymph % (Auto) 33.1, Dillon % (Auto) 7.6, Eos % (Auto) 7.1, Baso % (Auto) 0.7, Neut # (Auto) 3.1, Lymph # (Auto) 2.0, Dillon # (Auto) 0.5, Eos # (Auto) 0.4, Baso # (Auto) 0.0 01/13/21 17:15: PT 11.6, INR 0.98 01/13/21 17:15: Sodium 133 L, Potassium 4.1, Chloride 100, Carbon Dioxide 29, Anion Gap 8.1, BUN 15, Creatinine 1.10 H, Estimated Creat Clear 59, Estimated GFR 49 L, Est GFR ( Amer) 59, Glucose 90, Calcium 9.3, Total Bilirubin 0.3, AST 38 H, ALT 15, Alkaline Phosphatase 115, Troponin I < 0.01, Total P
[2021-01-13 17:17] LABS: Basophils % 0.7 % (0.1-2.0); Eosinophils # 0.4 K/mm3 (0.0-0.4); Eosinophils % 7.1 % (0.1-12.0); Hematocrit 34.1 % (37.0-47.0); Hemoglobin 10.8 g/dL (12.2-16.2); Lymphocytes % 33.1 % (10-50); Mean Corpuscular HGB Conc 31.7 g/dL (31.8-35.4); Mean Corpuscular Hemoglobin 28.2 pg (27.0-31.2); Mean Corpuscular Volume 88.9 fl (81-99); Mean Platelet Volume 7.7 fl (7.4-10.4); Monocytes # 0.5 K/mm3 (0.1-1.0); Monocytes % 7.6 % (1.7-9.3); Neutrophils # 3.1 K/mm3 (1.8-7.8); Neutrophils % 51.5 % (37.0-80.0); Platelet Count 483 K/mm3 (142-424); Red Blood Count 3.84 M/mm3 (4.20-5.40); Red Cell Distribution Width 15.3 % (11.5-17.5)
--- NOTE | 2021-01-13 17:22 | PC.NURSE ---
Pt up to restroom but did not give UA. Will collect the next time she goes.
[2021-01-13 17:26] LABS: VBG Base Excess 1.4 mmol/L (-2.4-2.3); VBG HCO3 26.8 mmol/L (23-30); VBG Oxygen Saturation 79.9 % (50-70); VBG PCO2 48.6 mmol/L (35-51); VBG PH 7.36 mmol/L (7.31-7.41); VBG PO2 46.1 mmol/L (28-40); VBG Total CO2 28.3 mmol/L (23-27)
[2021-01-13 17:42] LABS: Alanine Aminotransferase 15 U/L (12-78); Albumin Level 3.8 g/dl (3.5-5.0); Albumin/Globulin Ratio 1.1 (1.1-1.8); Alkaline Phosphatase 115 U/L (38-126); Anion Gap 8.1 mEq/L (5-15); Aspartate Amino Transferase 38 U/L (14-36); Bilirubin,Total 0.3 mg/dl (0.2-1.3); Blood Urea Nitrogen 15 mg/dl (7-17); Calcium 9.3 mg/dl (8.4-10.2); Carbon Dioxide 29 mmol/L (22.0-30.0); Chloride 100 mmol/L (98-107); Creatinine Clearance Estimated 59 mL/min (50-200); Estimated Glomerular Filt Rate 49 ml/min (>60); GFR (African American) 59 ML/MIN (>60); Globulin 3.4 g/dL (1.3-3.2); Glucose 90 mg/dl (74-100); Potassium 4.1 mmoL/L (3.5-5.1); Sodium 133 mmol/L (136-145); Total Protein,Serum 7.2 g/dl (6.3-8.2)
[2021-01-13 17:43] LABS: INR 0.98 (0.9-1.1); Prothrombin Time 11.6 seconds (10.1-12.5)
[2021-01-13 17:51] LABS: NT Pro Brain Natriuretic Pep. 311 pg/mL (0-125)
[2021-01-13 18:07] LABS: Troponin I < 0.01 ng/ml (0.00-0.034)
--- NOTE | 2021-01-13 19:01 | CT_ITS ---
PROCEDURE INFORMATION: Exam: CT Chest Without Contrast; Diagnostic Exam date and time: 01/13/2021 7:01 PM Age: 75 years old Clinical indication: Shortness of breath; Additional info: SOA TECHNIQUE: Imaging protocol: Diagnostic computed tomography of the chest without contrast. Radiation optimization: All CT scans at this facility use at least one of these dose optimization techniques: automated exposure control; mA and/or kV adjustment per patient size (includes targeted exams where dose is matched to clinical indication); or iterative reconstruction. COMPARISON: CT CHEST WO CON 07/01/2020 12:57 PM FINDINGS: Limitations: Absence of IV contrast decreases soft tissue differentiation and sensitivity for detecting soft tissue and vascular pathology. Lungs: No consolidation. There are small nodules scattered throughout both lungs measuring up to 3 mm in size as in the left upper lobe on series 3, image 21. There are calcified granulomas in the right upper lobe. There is scarring at the lung apices. Pleural spaces: Unremarkable. No pneumothorax. No pleural effusion. Heart: No cardiomegaly. No pericardial effusion. Coronary artery calcifications are present. Aorta: No thoracic aortic aneurysm. Lymph nodes: There are calcified mediastinal and right hilar lymph nodes. No mediastinal or axillary lymphadenopathy. There is no evidence of hilar adenopathy, however evaluation is suboptimal on this noncontrast examination. Bones/joints: No acute fracture. There is posterior thoracolumbar fixation hardware, partially imaged. Stable postsurgical changes of the right shoulder joint. Soft tissues: There are postsurgical changes of the lower back. IMPRESSION: Small nodules scattered throughout both lungs measuring up to 3 mm in size. For patients at low risk (minimal or absent history of smoking and of other known risk factors), no routine follow-up is indicated. For patients at high risk (history of smoking or of other known risk factors), consider optional CT Chest at 12 months. (Reference: [place]) REFERENCES: Estuardohocalixto H, et al. Guidelines for Management of Incidental Pulmonary Nodules Detected on CT Images: From the Fleischner Society 2017. Radiology. 2017;284(1):228-243.
--- NOTE | 2021-01-13 19:27 | PC.NURSE ---
pt refused ct with contrast and was changed to without. states my veins won't take it
[2021-01-13 19:38] LABS: Microscopic, Urine URINE MICROSCOPIC (MICROSCOPIC)
[2021-01-13 19:39] LABS: Appearance,Urine CLEAR (Clear); Bilirubin,Urine Negative (Negative); Blood, Urine Negative (Negative); Color,Urine YELLOW (Yellow); Glucose,Urine (UA) Negative (Negative); Ketones,Urine Negative (Negative); Leukocyte Esterase,Urine Negative (Negative); Nitrate,Urine Negative (Negative); PH,Urine 5.5 (5.0-8.5); Protein,Urine Negative (Negative); Urobilinogen,Urine 0.2 EU/dl (0.2)
[2021-01-13 19:45] LABS: Squamous Epithelial Cell,Urine Occasional #/hpf (0-5)
[2021-01-13 19:46] LABS: Bacteria,Urine Trace /lpf
[2021-01-13 20:52] LABS: Lactic Acid 1.9 mmol/L (0.7-2.1)
[2021-01-13 21:21] LABS: Troponin I < 0.01 ng/ml (0.00-0.034)
== END 2021-01-13 21:41 | disposition home or self-care (01) ==
PROVIDERS: Emergency Provider Student in an Organized Health Care Education/Training Program; PCP Internal Medicine Adolescent Medicine
DX: J44.1 Chronic obstructive pulmonary disease with (acute) exacerbation (principal); I10 Essential (primary) hypertension; K21.9 Gastro-esophageal reflux disease without esophagitis; E78.5 Hyperlipidemia, unspecified; I73.9 Peripheral vascular disease, unspecified; Z79.899 Other long term (current) drug therapy; Z88.8 Allergy status to other drugs, medicaments and biological substances; Z87.891 Personal history of nicotine dependence
CPT/HCPCS: 71045; 71250; 80053; 81001; 82803; 83605; 83880; 84484; 85025; 85610; 93005; 96365; 96375; 99283

== ENCOUNTER → 2021-02-10 13:02 | Outpatient (POV) | payer MEDICARE, BC, SELFPAY | PROVIDERS: Visit Provider Nurse Practitioner Family | DX: Z00.00 Encounter for general adult medical examination without abnormal findings (principal) ==

== ENCOUNTER → 2021-02-11 14:03 | Outpatient (CLI) | payer MEDICARE, BC, SELFPAY ==
[2021-02-11 14:07] LABS: Microscopic, Urine URINE MICROSCOPIC (MICROSCOPIC)
[2021-02-11 14:27] LABS: Appearance,Urine CLEAR (Clear); Bilirubin,Urine Negative (Negative); Blood, Urine 2+ (Negative); Color,Urine YELLOW (Yellow); Glucose,Urine (UA) Negative (Negative); Ketones,Urine Negative (Negative); Leukocyte Esterase,Urine 2+ (Negative); Nitrate,Urine Negative (Negative); Protein,Urine Negative (Negative); Urobilinogen,Urine 0.2 EU/dl (0.2)
[2021-02-11 14:35] LABS: Creatinine,Urine Random 35 mg/dL (Not Estab.)
[2021-02-11 14:39] LABS: Microalbumin/Creatinine Ratio 75.7
[2021-02-11 14:49] LABS: Chloride 105 mmol/L (98-107); Sodium 137 mmol/L (136-145)
[2021-02-11 14:50] LABS: Albumin Level 4.3 g/dl (3.5-5.0); Potassium 3.9 mmoL/L (3.5-5.1)
[2021-02-11 14:52] LABS: Anion Gap 13.9 mEq/L (5-15); Blood Urea Nitrogen 16 mg/dl (7-17); Carbon Dioxide 22 mmol/L (22.0-30.0); Estimated Glomerular Filt Rate 44 ml/min (>60); GFR (African American) 53 ML/MIN (>60)
[2021-02-11 14:53] LABS: Glucose 71 mg/dl (74-100)
[2021-02-11 15:11] LABS: Bacteria,Urine 2+ /lpf; WBC,Urine 50-100 #/hpf (0-3)
== END ==
PROVIDERS: Visit Provider Internal Medicine Nephrology
DX: N18.30 Chronic kidney disease, stage 3 unspecified (principal); R82.90 Unspecified abnormal findings in urine
CPT/HCPCS: 36415; 80069; 81001; 82043; 82570; 87086; 87088; 87186

== ENCOUNTER → 2021-02-15 11:26 | Outpatient (CLI) | payer MEDICARE, BC, SELFPAY ==
--- NOTE | 2021-02-15 11:42 | XR_ITS ---
PROCEDURE INFORMATION: Exam: XR Right Ribs Exam date and time: 02/15/2021 11:42 AM Age: 75 years old Clinical indication: Painful respiration; Patient HX: RT sided chest pain from a fall, previous spine surgery TECHNIQUE: Imaging protocol: XR Right ribs. Views: 2 views. COMPARISON: CT CHEST WO CON 01/13/2021 7:04 PM FINDINGS: Bones/joints: Scoliosis repair of the spine is seen and is stable. No acute fracture or bony destruction is seen. Lungs: Stable right lung granuloma and right hilar granulomatous lymph nodes. Soft tissues: Normal. IMPRESSION: No acute findings.
--- NOTE | 2021-02-15 11:43 | XR_ITS ---
PROCEDURE INFORMATION: Exam: XR Chest Exam date and time: 02/15/2021 11:43 AM Age: 75 years old Clinical indication: Right-sided; Patient HX: RT sided chest pain from a fall, previous spine surgery TECHNIQUE: Imaging protocol: XR of the chest. Views: 2 views. COMPARISON: CT CHEST WO CON 01/13/2021 7:04 PM FINDINGS: Lungs: Unremarkable. No consolidation. Stable granulomatous changes. Pleural spaces: Unremarkable. No pleural effusion. No pneumothorax. Heart/Mediastinum: Unremarkable. No cardiomegaly. Bones/joints: Unremarkable. Operative changes are stable. IMPRESSION: No acute findings.
== END ==
PROVIDERS: PCP Nurse Practitioner Family; Referring Provider Nurse Practitioner Family; Visit Provider Nurse Practitioner Family
DX: R07.89 Other chest pain (principal)
CPT/HCPCS: 71046; 71100

== ENCOUNTER 2021-03-05 20:33 | Emergency (ER) | payer MEDICARE, BC, SELFPAY ==
[2021-03-05 21:02] VITALS: BP 178/93; PULSE 84; O2SAT 94
[2021-03-05 21:15] VITALS: BP 143/93; PULSE 82; RESP 18; TEMP 36.7; O2SAT 97; BMI 31.6
--- NOTE | 2021-03-05 21:50 | HMH.EDFALL ---
ED Disposition Clinical Impression: Renal insufficiency Concussion without loss of consciousness Qualifiers: Encounter type: initial encounter Qualified Code(s): S06.0X0A - Concussion without loss of consciousness, initial encounter Lumbar sprain Qualifiers: Encounter type: initial encounter Qualified Code(s): S33.5XXA - Sprain of ligaments of lumbar spine, initial encounter Cervical strain, acute Qualifiers: Encounter type: initial encounter Qualified Code(s): S16.1XXA - Strain of muscle, fascia and tendon at neck level, initial encounter Contusion of knee Qualifiers: Encounter type: initial encounter Laterality: unspecified laterality Qualified Code(s): S80.00XA - Contusion of unspecified knee, initial encounter Fall Qualifiers: Encounter type: initial encounter Qualified Code(s): W19.XXXA - Unspecified fall, initial encounter Disposition: Home, Self-Care Condition on Discharge: Good Instructions: DI for Concussion Additional Instructions: call pcp in am Referrals: Erum Del Cid APRN [Primary Care Provider] - - Critical Care Critical Care Time: No Attestation: On 03/05/21, the high probability of a clinically significant, sudden or life threatening deterioration of the following system(s) required my full and direct attention, intervention and personal management. The time I documented below is in addition to time spent performing reported procedures but includes the following listed in this critical care notation. Medical Decision Making - Medical Records Medical records reviewed: Yes: I reviewed the patient's medical records. - Cecil Inquiry Pt receiving controlled substance: No Vital Signs: 03/05/21 21:02 03/05/21 21:15 03/05/21 22:30 Temperature 98.0 F Temperature Source Oral Pulse Rate 84 82 Pulse Rate [Right] 82 Respiratory Rate 18 Blood Pressure 178/93 H 166/76 H Blood Pressure [Right Arm] 143/93 H Blood Pressure Mean [Right Arm] 109 Blood Pressure Source [Right Arm] Automatic Cuff Blood Pressure Position [Right Arm] Supine 02 Sat by Pulse Oximetry 94 L 97 93 L Oxygen Delivery Method Room Air 03/05/21 23:00 03/05/21 23:30 03/06/21 01:07 Temperature Temperature Source Pulse Rate 85 87 92 H Pulse Rate [Right] Respiratory Rate Blood Pressure 159/93 H 164/72 H 180/83 H Blood Pressure [Right Arm] Blood Pressure Mean [Right Arm] Blood Pressure Source [Right Arm] Blood Pressure Position [Right Arm] 02 Sat by Pulse Oximetry 94 L 96 99 Oxygen Delivery Method 03/06/21 01:29 Temperature Temperature Source Pulse Rate 91 H Pulse Rate [Right] Respiratory Rate Blood Pressure 181/82 H Blood Pressure [Right Arm] Blood Pressure Mean [Right Arm] Blood Pressure Source [Right Arm] Blood Pressure Position [Right Arm] 02 Sat by Pulse Oximetry 96 Oxygen Delivery Method - Lab Data Lab results reviewed: Yes: I reviewed the patient's lab results. Lab Results 03/05/21 23:00: WBC 5.4, RBC 4.65, Hgb 12.9, Hct 39.7, MCV 85.4, MCH 27.8, MCHC 32.6, RDW 15.7, Plt Count 262, MPV 8.6, Neut % (Auto) 26.1 L, Lymph % (Auto) 34.9, [place] % (Auto) 7.7, Eos % (Auto) 30.5 H, Baso % (Auto) 0.8, Neut # (Auto) 1.4 L, Lymph # (Auto) 1.9, [place] # (Auto) 0.4, Eos # (Auto) 1.6 H, Baso # (Auto) 0.0, ESR 16 03/05/21 23:00: Sodium 133 L, Potassium 3.2 L, Chloride 96 L, Carbon Dioxide 34 H, Anion Gap 6.2, BUN 26 H, Creatinine 1.40 H, Estimated Creat Clear 47, Estimated GFR 37 L, Est GFR ( Amer) 45 L, Glucose 101 H, Calcium 9.0, Total Bilirubin 0.4, AST 42 H, ALT 28, Alkaline Phosphatase 160 H, C-Reactive Protein 12.3 H, Total Protein 7.3, Albumin 4.1, Globulin 3.2, Albumin/Globulin Ratio 1.3, Procalcitonin 0.032 Result diagrams: 03/05/21 23:00 03/05/21 23:00 Orders (Tests/Meds): ED MEDICATIONS Discontinued Medications Generic Name Dose Route Start Last Admin Trade Name Freq PRN Reason Stop Dose Admin Ketorolac Tromethamine 30 mg
[2021-03-05 22:30] VITALS: BP 166/76; PULSE 82; O2SAT 93
[2021-03-05 23:00] VITALS: BP 159/93; PULSE 85; O2SAT 94
[2021-03-05 23:11] LABS: Basophils % 0.8 % (0.1-2.0); Eosinophils # 1.6 K/mm3 (0.0-0.4); Eosinophils % 30.5 % (0.1-12.0); Hematocrit 39.7 % (37.0-47.0); Hemoglobin 12.9 g/dL (12.2-16.2); Lymphocytes # 1.9 K/mm3 (0.7-4.5); Lymphocytes % 34.9 % (10-50); Mean Corpuscular HGB Conc 32.6 g/dL (31.8-35.4); Mean Corpuscular Hemoglobin 27.8 pg (27.0-31.2); Mean Corpuscular Volume 85.4 fl (81-99); Mean Platelet Volume 8.6 fl (7.4-10.4); Monocytes # 0.4 K/mm3 (0.1-1.0); Monocytes % 7.7 % (1.7-9.3); Neutrophils # 1.4 K/mm3 (1.8-7.8); Neutrophils % 26.1 % (37.0-80.0); Platelet Count 262 K/mm3 (142-424); Red Blood Count 4.65 M/mm3 (4.20-5.40); Red Cell Distribution Width 15.7 % (11.5-17.5); White Blood Count 5.4 K/mm3 (4.8-10.8)
[2021-03-05 23:15] LABS: Alanine Aminotransferase 28 U/L (12-78); Albumin Level 4.1 g/dl (3.5-5.0); Albumin/Globulin Ratio 1.3 (1.1-1.8); Alkaline Phosphatase 160 U/L (38-126); Anion Gap 6.2 mEq/L (5-15); Aspartate Amino Transferase 42 U/L (14-36); Bilirubin,Total 0.4 mg/dl (0.2-1.3); Blood Urea Nitrogen 26 mg/dl (7-17); Carbon Dioxide 34 mmol/L (22.0-30.0); Chloride 96 mmol/L (98-107); Creatinine Clearance Estimated 47 mL/min (50-200); Estimated Glomerular Filt Rate 37 ml/min (>60); GFR (African American) 45 ML/MIN (>60); Globulin 3.2 g/dL (1.3-3.2); Glucose 101 mg/dl (74-100); Potassium 3.2 mmoL/L (3.5-5.1); Sodium 133 mmol/L (136-145); Total Protein,Serum 7.3 g/dl (6.3-8.2)
[2021-03-05 23:21] LABS: C-Reactive Protein 12.3 mg/L (0-4)
[2021-03-05 23:30] VITALS: BP 164/72; PULSE 87; O2SAT 96
[2021-03-05 23:34] LABS: Procalcitonin 0.032 ng/mL (0.0-2.0)
[2021-03-05 23:46] LABS: Erythrocyte Sedimentation Rate 16 mm/hr (0-30)
[2021-03-06 01:07] VITALS: BP 180/83; PULSE 92; O2SAT 99
[2021-03-06 01:29] VITALS: BP 181/82; PULSE 91; O2SAT 96
[2021-03-06 02:48] VITALS: BP 176/80; PULSE 90; RESP 18; TEMP 36.7; O2SAT 96
--- NOTE | 2021-03-06 21:30 | CT_ITS ---
PROCEDURE INFORMATION: Exam: CT Head Without Contrast Exam date and time: 03/06/2021 9:30 PM Age: 75 years old Clinical indication: Injury or trauma; Bleeding/hemorrhage; Patient HX: Fall, hitting head. C/O back and neck pain TECHNIQUE: Imaging protocol: Computed tomography of the head without contrast. Radiation optimization: All CT scans at this facility use at least one of these dose optimization techniques: automated exposure control; mA and/or kV adjustment per patient size (includes targeted exams where dose is matched to clinical indication); or iterative reconstruction. COMPARISON: HDO CT HEAD W/O CONTRAST 02/03/2016 1:33 PM FINDINGS: Brain: No intracranial hemorrhage. No mass effect. Mild hypoattenuation of the periventricular and subcortical white matter, consistent with chronic microvascular ischemic disease. Cerebral ventricles: Stable, mild to moderate enlargement of the ventricular system secondary to age related parenchymal volume loss. Vasculature: Atherosclerotic calcification of the bilateral intracranial internal carotid and vertebral arteries. Paranasal sinuses: Visualized sinuses are unremarkable. No fluid levels. Mastoid air cells: Visualized mastoid air cells are well aerated. Bones/joints: Unremarkable. No acute fracture. Soft tissues: Unremarkable. IMPRESSION: 1. No acute intracranial abnormality. 2. Chronic findings.
--- NOTE | 2021-03-06 21:30 | CT_ITS ---
PROCEDURE INFORMATION: Exam: CT Lumbar Spine Without Contrast Exam date and time: 03/06/2021 9:30 PM Age: 75 years old Clinical indication: Injury or trauma; Blunt trauma (contusions or hematomas); Prior surgery; Surgery date: 3-7 days post-operative; Patient HX: Fall, hitting head. C/O back and neck pain TECHNIQUE: Imaging protocol: Computed tomography images of the lumbar spine without contrast. Radiation optimization: All CT scans at this facility use at least one of these dose optimization techniques: automated exposure control; mA and/or kV adjustment per patient size (includes targeted exams where dose is matched to clinical indication); or iterative reconstruction. COMPARISON: CT LUMBAR SPINE WO CON 10/22/2020 2:55 PM FINDINGS: Vertebrae, disc spaces, and spinal canal: Postoperative changes of multilevel thoracolumbosacral spinal fusion. T12-L5 laminectomy. Bilateral fusion rods, spanning from T10-S2. Right-sided pedicle screws noted from T10-L1 as well as L3-S1. Left-sided pedicle screws noted from T10-L2, as well as L4-S1. The right-sided pedicle screw at the level of L4 lies along the right lateral margin of the vertebral body. The right-sided pedicle screw at L5 projects anteriorly beyond the anterior margin of the L5 vertebral body. Interbody spacers are noted at L1-L2, L2-L3, L4-L5, L5-S1. Left convex curvature of the spine centered about L2-L3. 4 mm anterolisthesis of L3 upon L4. The usual lumbar lordosis is otherwise preserved. Generalized osteopenia, which limits sensitivity of detection for acute fracture. No visualized acute fracture or dislocation. Significantly limited evaluation of the spinal canal due to beam hardening artifact from metallic hardware. Multilevel ankylosis of the lumbar facet joints, which may be related to spinal fusion with bone graft. Suspected indentation on the thecal sac due to disc material at several levels in the lumbar spinal canal. The spinal canal has been decompressed due to laminectomy. Moderate to severe left and [id number] right neural foraminal narrowing at L4-L5. Severe bilateral neural foraminal narrowing at L5-S1. Sacrum/coccyx: Bilateral sacroiliac joint osteoarthritis. Bilateral iliosacral lag screws are noted. No evidence of loosening is identified. Lungs: Bibasilar subsegmental dependent atelectasis. Dependent atelectasis and/or scarring. Small hiatal hernia. Soft tissues: Midline dependent subcutaneous scarring. Other findings: Please see separate report of CT of the abdomen and pelvis. IMPRESSION: 1. Generalized osteopenia, which limits sensitivity of detection for acute fracture. No visualized acute fracture or dislocation. 2. Postoperative changes of multilevel laminectomy with thoracolumbosacral spinal fusion. No evidence of loosening. The right-sided pedicle screw at the level of L4 lies along the right lateral margin of the vertebral body. The right-sided pedicle screw at L5 projects anteriorly beyond the anterior margin of the L5 vertebral body. 3. Significantly limited evaluation of the spinal canal due to beam hardening artifact from metallic hardware. 4. Suspected indentation on the thecal sac due to disc material at several levels in the lumbar spinal canal. The spinal canal has been decompressed due to laminectomy. Moderate to severe left and ammu-tc-plnsbauk right neural foraminal narrowing at L4-L5. Severe bilateral neural foraminal narrowing at L5-S1. 5. Please see separate report of CT of the abdomen and pelvis.
--- NOTE | 2021-03-06 21:30 | CT_ITS ---
PROCEDURE INFORMATION: Exam: CT Abdomen And Pelvis Without Contrast Exam date and time: 03/06/2021 9:30 PM Age: 75 years old Clinical indication: Abdominal pain; Patient HX: Fall, hitting head. C/O back and neck pain TECHNIQUE: Imaging protocol: Computed tomography of the abdomen and pelvis without contrast. Radiation optimization: All CT scans at this facility use at least one of these dose optimization techniques: automated exposure control; mA and/or kV adjustment per patient size (includes targeted exams where dose is matched to clinical indication); or iterative reconstruction. COMPARISON: CT ABDOMEN PELVIS W CON 09/09/2019 6:07 PM FINDINGS: Lungs: Linear scar atelectasis at the left lung base. Limitations: Limited evaluation for injury to the abdominal and pelvic organs and vasculature without administration of IV contrast. Liver: Normal. No mass. Gallbladder and bile ducts: Normal. No calcified stones. No ductal dilation. Pancreas: Normal. No ductal dilation. Spleen: Normal. No splenomegaly. Adrenal glands: Normal. No mass. Kidneys and ureters: Mild malrotation of the left kidney, anatomic variant. Stomach and bowel: Large volume stool throughout the colon. Finding may be seen in constipation.. Appendix: Normal appendix. Intraperitoneal space: No free air. No free fluid. Vasculature: Diffuse atherosclerotic calcification of the thoracoabdominal aorta and branches. Lymph nodes: Calcified hilar lymph nodes, related to remote granulomatous disease. Urinary bladder: Bladder incompletely distended, limiting evaluation. Reproductive: Unremarkable as visualized. Bones/joints: Extensive multilevel bilateral laminectomy and spinal fusion. Please see separate report of CT of the lumbar spine. Metallic hardware produces beam hardening artifact, limiting evaluation. Bilateral sacroiliac lag screws are noted, without evidence of loosening or hardware complication. Bilateral sacroiliac osteoarthritis noted. Pubic symphysis degenerative change noted. Generalized osteopenia, which limits sensitivity of detection for acute fracture. No visualized acute fracture or dislocation is identified. Soft tissues: Small fat containing ventral hernia. Dependent subcutaneous scarring at midline. IMPRESSION: 1. Limited evaluation for injury to the abdominal and pelvic organs and vasculature without administration of IV contrast. 2. No evidence of injury to the abdominal and pelvic organs and vasculature. 3. No free fluid. No free air. 4. Extensive multilevel bilateral laminectomy and spinal fusion. Please see separate report of CT of the lumbar spine. Metallic hardware produces beam hardening artifact, limiting evaluation. 5. Generalized osteopenia, which limits sensitivity of detection for acute fracture. No visualized acute fracture or dislocation is identified.
--- NOTE | 2021-03-06 21:30 | CT_ITS ---
PROCEDURE INFORMATION: Exam: CT Cervical Spine Without Contrast Exam date and time: 03/06/2021 9:30 PM Age: 75 years old Clinical indication: Injury or trauma; Blunt trauma; Patient HX: Fall, hitting head. C/O back and neck pain TECHNIQUE: Imaging protocol: Computed tomography images of the cervical spine without contrast. Radiation optimization: All CT scans at this facility use at least one of these dose optimization techniques: automated exposure control; mA and/or kV adjustment per patient size (includes targeted exams where dose is matched to clinical indication); or iterative reconstruction. COMPARISON: No relevant prior studies available. FINDINGS: Bones/joints: Craniocervical junction is intact. Retro odontoid soft tissue with calcification. Findings may be related to degenerative or metabolic disease, such as CPPD. 2 mm anterolisthesis of C5 upon C6. The usual cervical lordosis is otherwise preserved. Vertebral body heights are maintained. No visualized acute fracture or dislocation. Osseous degenerative changes. Anterior osteophytes. Discs/Spinal canal/Neural foramina: Multilevel degenerative changes of the spine. Ossification of the a LLL at C3-C4 and C5-C6. Multilevel facet and uncinate process hypertrophy. Mild to moderate spinal canal stenosis at C5-C6 on the right. Lungs: Biapical pulmonary scarring. Vasculature: Atherosclerotic calcification. Suspected enlargement of the thyroid gland. Soft tissues: Unremarkable. IMPRESSION: 1. No acute fracture or dislocation. 2. Degenerative change.
--- NOTE | 2021-03-06 21:30 | CT_ITS ---
PROCEDURE INFORMATION: Exam: CT Thoracic Spine Without Contrast Exam date and time: 03/06/2021 9:30 PM Age: 75 years old Clinical indication: Injury or trauma; Blunt trauma (contusions or hematomas); Prior surgery; Surgery date: 3-7 days post-operative; Patient HX: Fall, hitting head. C/O back and neck pain TECHNIQUE: Imaging protocol: Computed tomography images of the thoracic spine without contrast. Radiation optimization: All CT scans at this facility use at least one of these dose optimization techniques: automated exposure control; mA and/or kV adjustment per patient size (includes targeted exams where dose is matched to clinical indication); or iterative reconstruction. COMPARISON: No relevant prior studies available. FINDINGS: Vertebrae: Thoracolumbar spinal fusion, with bilateral fusion rods and pedicle screws, with superior extent at T10. The right pedicle screw at T10 may project slightly anteriorly and lateraly beyond the anterior aspect of the vertebral body (series 602, image 35, series 3, image 43). No evidence of loosening. Vertebral body heights are maintained. The usual thoracic kyphosis is preserved. Generalized osteopenia, which limits sensitivity of detection for acute fracture. No visualized acute fracture or dislocation. Mild osseous degenerative changes. Anterior bridging osteophytes. Discs/Spinal canal/Neural foramina: Mild degenerative change. Soft tissues: Scarring of the dorsal subcutaneous tissues. Lymph nodes: Biapical scarring. Calcified mediastinal and bilateral hilar lymph nodes. These may be related to remote granulomatous disease. Linear scar atelectasis at the bilateral lung bases. Vasculature: Atherosclerotic calcification. IMPRESSION: 1. Generalized osteopenia, which limits sensitivity of detection for acute fracture. No visualized acute fracture or dislocation. 2. Degenerative change. 3. Thoracolumbar spinal fusion, with bilateral fusion rods and pedicle screws, with superior extent at T10. The right pedicle screw at T10 may project slightly anteriorly and lateraly beyond the anterior aspect of the vertebral body
--- NOTE | 2021-03-06 21:30 | XR_ITS ---
PROCEDURE INFORMATION: Exam: XR Left Knee Exam date and time: 03/06/2021 9:30 PM Age: 75 years old Clinical indication: Injury or trauma; Blunt trauma; Knee; Bilateral; Patient HX: Fall, hitting head. C/O back and neck pain TECHNIQUE: Imaging protocol: XR Left knee. Views: 3 views. COMPARISON: US CA venous doppler LE BI 03/24/2019 12:57 PM FINDINGS: Bones/joints: No acute fracture. Degenerative change. Spurring of the tibial spines. Small osteophyte formation. Suspected mild lateral facet chondral calcinosis. Soft tissues: Normal. IMPRESSION: No acute findings.
--- NOTE | 2021-03-06 21:30 | XR_ITS ---
PROCEDURE INFORMATION: Exam: XR Right Knee Exam date and time: 03/06/2021 9:30 PM Age: 75 years old Clinical indication: Injury or trauma; Blunt trauma; Knee; Bilateral; Patient HX: Fall, hitting head. C/O back and neck pain TECHNIQUE: Imaging protocol: XR Right knee. Views: 3 views. COMPARISON: CR XR KNEE RT 3V 08/26/2020 12:16 PM FINDINGS: Bones/joints: No visualized acute fracture or dislocation. Degenerative change. Spurring of the bilateral tibial spine. Joint space narrowing. Small osteophyte formation. Soft tissues: Normal. IMPRESSION: 1. No acute fracture.
--- NOTE | 2021-03-06 21:51 | XR_ITS ---
PROCEDURE INFORMATION: Exam: XR Chest Exam date and time: 03/06/2021 9:51 PM Age: 75 years old Clinical indication: Wheezing; Patient HX: Fall, hitting head. C/O back and neck pain TECHNIQUE: Imaging protocol: XR of the chest. Views: 4 or more views. COMPARISON: CR XR CHEST 2V 02/15/2021 11:45 AM FINDINGS: Lungs: No consolidation. Calcified granuloma in the right lower lung zone. Mild background interstitial prominence. Pleural spaces: No pleural effusion. No pneumothorax. Heart/Mediastinum: No cardiomegaly. Atherosclerotic calcification of the aortic arch. Bones/joints: Degenerative change. Thoracolumbar spinal fusion hardware, incompletely included on the field of view of the study. Evidence of right rotator cuff repair. IMPRESSION: 1. No acute findings.
--- NOTE | 2021-03-06 21:51 | XR_ITS ---
PROCEDURE INFORMATION: Exam: XR Pelvis Exam date and time: 03/06/2021 9:51 PM Age: 75 years old Clinical indication: Injury or trauma; Blunt trauma (contusions or hematomas); Bilateral; Hip; Patient HX: Fall, hitting head. C/O back and neck pain TECHNIQUE: Imaging protocol: XR pelvis. Views: 1 or 2 view. COMPARISON: CT ABDOMEN PELVIS W CON 09/09/2019 6:07 PM FINDINGS: Bones/joints: No acute fracture or dislocation. Degenerative changes at the bilateral hip joints. Lumbosacral spinal fusion incompletely included on the field of view of the study. No radiographic evidence of loosening or hardware complication. Degenerative changes of the imaged lumbosacral spine. Soft tissues: Unremarkable. IMPRESSION: 1. No acute fracture or dislocation.
== END 2021-03-06 03:15 | disposition home or self-care (01) ==
PROVIDERS: Emergency Provider Emergency Medicine; PCP Nurse Practitioner Family
DX: S06.0X0A Concussion without loss of consciousness, initial encounter (principal); S33.5XXA Sprain of ligaments of lumbar spine, initial encounter; S16.1XXA Strain of muscle, fascia and tendon at neck level, initial encounter; S80.01XA Contusion of right knee, initial encounter; S80.02XA Contusion of left knee, initial encounter; K21.9 Gastro-esophageal reflux disease without esophagitis; E78.5 Hyperlipidemia, unspecified; I10 Essential (primary) hypertension; Z79.899 Other long term (current) drug therapy; W01.190A Fall on same level from slipping, tripping and stumbling with subsequent striking against furniture, initial encounter; Y92.019 Unspecified place in single-family (private) house as the place of occurrence of the external cause
CPT/HCPCS: 36415; 70450; 71045; 72125; 72128; 72131; 72170; 73562; 74176; 80053; 84145; 85025; 85651; 86140; 96372; 99282

== ENCOUNTER 2021-03-09 22:45 | Emergency (ER) | payer MEDICARE, BC, SELFPAY ==
[2021-03-09 23:00] VITALS: BP 122/73; PULSE 84; O2SAT 98
[2021-03-09 23:16] VITALS: BP 177/80; PULSE 97; RESP 18; TEMP 37.1; O2SAT 98; BMI 31.0
[2021-03-09 23:30] VITALS: BP 177/80; PULSE 96; O2SAT 98
--- NOTE | 2021-03-09 23:34 | [facility].EDGENADL ---
ED Disposition Clinical Impression: Angioedema Qualifiers: Encounter type: initial encounter Qualified Code(s): T78.3XXA - Angioneurotic edema, initial encounter Disposition: Home, Self-Care Condition on Discharge: Fair Referrals: Miller Hazel MD [Primary Care Provider] - - Critical Care Critical Care Time: No Attestation: On 03/09/21, the high probability of a clinically significant, sudden or life threatening deterioration of the following system(s) required my full and direct attention, intervention and personal management. The time I documented below is in addition to time spent performing reported procedures but includes the following listed in this critical care notation. Medical Decision Making - Medical Records Medical records reviewed: Yes: I reviewed the patient's medical records. - Cecil Inquiry Pt receiving controlled substance: No Vital Signs: 03/09/21 23:16 Temperature 98.7 F Temperature Source Oral Pulse Rate [Right Brachial] 97 H Respiratory Rate 18 Blood Pressure [Right Arm] 177/80 H Blood Pressure Mean [Right Arm] 112 Blood Pressure Source [Right Arm] Automatic Cuff Blood Pressure Position [Right Arm] Sitting 02 Sat by Pulse Oximetry 98 Oxygen Delivery Method Room Air - Lab Data Lab results reviewed: Yes: I reviewed the patient's lab results. Lab Results 03/10/21 00:37: WBC 4.3 L, RBC 4.41, Hgb 12.4, Hct 38.2, MCV 86.7, MCH 28.1, MCHC 32.4, RDW 15.9, Plt Count 223, MPV 8.2, Neut % (Auto) 30.8 L, Lymph % (Auto) 37.4, [place] % (Auto) 10.6 H, Eos % (Auto) 20.6 H, Baso % (Auto) 0.6, Neut # (Auto) 1.3 L, Lymph # (Auto) 1.6, [place] # (Auto) 0.5, Eos # (Auto) 0.9 H, Baso # (Auto) 0.0 03/10/21 00:37: Sodium 137, Potassium 3.8, Chloride 102, Carbon Dioxide 27, Anion Gap 11.8, BUN 46 H, Creatinine 1.60 H, Estimated Creat Clear 41, Estimated GFR 32 L, Est GFR ( Amer) 38 L, Glucose 84, Calcium 9.1 Result diagrams: 03/10/21 00:37 03/10/21 00:37 Orders (Tests/Meds): ED MEDICATIONS Generic Name Dose Route Start Last Admin Trade Name Freq PRN Reason Stop Dose Admin Sodium Chloride 8 ml 03/09/21 23:33 Sodium Chloride 0.9% 10ml Vial IV 04/08/21 23:32 NEEDED PRN dilute pepcid Discontinued Medications Generic Name Dose Route Start Last Admin Trade Name Freq PRN Reason Stop Dose Admin Dexamethasone Sodium Phosphate 8 mg 03/09/21 23:33 03/09/21 23:41 Dexamethasone 4mg/Ml 1ml Vial IM 03/09/21 23:34 8 mg ONCE ONE Administration Diphenhydramine HCl 50 mg 03/09/21 23:34 03/09/21 23:40 Diphenhydramine 50mg/Ml Vial IM 03/09/21 23:35 50 mg ONCE ONE Administration Famotidine 20 mg 03/09/21 23:33 03/09/21 23:40 Famotidine 20mg/2ml Vial IV 03/09/21 23:34 20 mg ONCE ONE Administration ORDERS Category Date Time Status Histamine, Plasma Stat Lab 03/09/21 23:32 Received Medical Decision Narrative: Angioedema combined the lips. No airway involvement or tongue involvement. Patient reports feeling better after receiving H1/H2 tripp as well as dexamethasone. Lab evaluation unremarkable. Patient is no longer on a RICKI/ARB. She declines observatory admission for airway monitoring and elects to follow-up with her primary in the morning. It is stressed to her that if her symptoms worsen or progress to present back to the emergency department immediately for further evaluation and airway support. General Adult HPI - General Chief complaint: Allergic Reaction Stated complaint: unk allergic reaction Time Seen by Provider: 03/09/21 23:30 Mode of Arrival: Ambulatory Limitations: No Limitations Description of Symptoms (Recalled from ER Triage Doc. by RN): Lips swollen. - History of Present Illness HPI narrative: This is a 75-year-old -Thai female that presents with upper and lower lip swelling that began approximately 12 hours and has progressively worsened. Swelling confined to the lips. She denies any swelling to the to
[2021-03-10] VITALS: BP 201/85; PULSE 92; RESP 18; O2SAT 99
--- NOTE | 2021-03-10 00:24 | PC.NURSE ---
Notified Lab on the need for Lab draw
[2021-03-10 00:30] VITALS: BP 176/83; PULSE 90; RESP 16; O2SAT 98
[2021-03-10 00:41] LABS: Basophils % 0.6 % (0.1-2.0); Eosinophils # 0.9 K/mm3 (0.0-0.4); Eosinophils % 20.6 % (0.1-12.0); Hematocrit 38.2 % (37.0-47.0); Hemoglobin 12.4 g/dL (12.2-16.2); Lymphocytes # 1.6 K/mm3 (0.7-4.5); Lymphocytes % 37.4 % (10-50); Mean Corpuscular HGB Conc 32.4 g/dL (31.8-35.4); Mean Corpuscular Hemoglobin 28.1 pg (27.0-31.2); Mean Corpuscular Volume 86.7 fl (81-99); Mean Platelet Volume 8.2 fl (7.4-10.4); Monocytes # 0.5 K/mm3 (0.1-1.0); Monocytes % 10.6 % (1.7-9.3); Neutrophils # 1.3 K/mm3 (1.8-7.8); Neutrophils % 30.8 % (37.0-80.0); Platelet Count 223 K/mm3 (142-424); Red Blood Count 4.41 M/mm3 (4.20-5.40); Red Cell Distribution Width 15.9 % (11.5-17.5); White Blood Count 4.3 K/mm3 (4.8-10.8)
[2021-03-10 00:52] LABS: Anion Gap 11.8 mEq/L (5-15); Blood Urea Nitrogen 46 mg/dl (7-17); Calcium 9.1 mg/dl (8.4-10.2); Carbon Dioxide 27 mmol/L (22.0-30.0); Chloride 102 mmol/L (98-107); Creatinine Clearance Estimated 41 mL/min (50-200); Estimated Glomerular Filt Rate 32 ml/min (>60); GFR (African American) 38 ML/MIN (>60); Glucose 84 mg/dl (74-100); Potassium 3.8 mmoL/L (3.5-5.1); Sodium 137 mmol/L (136-145)
[2021-03-10 01:00] VITALS: BP 174/75; PULSE 89; RESP 16; O2SAT 99
[2021-03-10 01:19] VITALS: BP 162/66; PULSE 90; RESP 18; TEMP 36.7; O2SAT 99
== END 2021-03-10 01:55 | disposition home or self-care (01) ==
PROVIDERS: Emergency Provider Emergency Medicine; PCP Internal Medicine Adolescent Medicine
DX: T78.3XXA Angioneurotic edema, initial encounter (principal); K21.9 Gastro-esophageal reflux disease without esophagitis; E78.5 Hyperlipidemia, unspecified; I73.9 Peripheral vascular disease, unspecified; I10 Essential (primary) hypertension; Z87.891 Personal history of nicotine dependence; Z86.718 Personal history of other venous thrombosis and embolism; Z79.01 Long term (current) use of anticoagulants; Z79.899 Other long term (current) drug therapy; Z88.5 Allergy status to narcotic agent
CPT/HCPCS: 80048; 83088; 85025; 96372; 99282

== ENCOUNTER → 2021-03-17 15:23 | Outpatient (CLI) | payer MEDICARE, BC, SELFPAY ==
[2021-03-17 15:45] LABS: Microscopic, Urine URINE MICROSCOPIC (MICROSCOPIC)
[2021-03-17 16:17] LABS: Basophils # 0.1 K/mm3 (0-0.2); Basophils % 0.9 % (0.1-2.0); Eosinophils # 1.1 K/mm3 (0.0-0.4); Eosinophils % 17.4 % (0.1-12.0); Hematocrit 43.5 % (37.0-47.0); Hemoglobin 13.8 g/dL (12.2-16.2); Lymphocytes # 1.8 K/mm3 (0.7-4.5); Lymphocytes % 30.5 % (10-50); Mean Corpuscular HGB Conc 31.7 g/dL (31.8-35.4); Mean Corpuscular Hemoglobin 27.4 pg (27.0-31.2); Mean Corpuscular Volume 86.4 fl (81-99); Mean Platelet Volume 8.8 fl (7.4-10.4); Monocytes # 0.6 K/mm3 (0.1-1.0); Monocytes % 9.3 % (1.7-9.3); Neutrophils # 2.5 K/mm3 (1.8-7.8); Neutrophils % 41.9 % (37.0-80.0); Platelet Count 162 K/mm3 (142-424); Red Blood Count 5.03 M/mm3 (4.20-5.40); Red Cell Distribution Width 15.3 % (11.5-17.5)
[2021-03-17 16:59] LABS: Erythrocyte Sedimentation Rate 9 mm/hr (0-30)
[2021-03-17 17:13] LABS: Appearance,Urine CLEAR (Clear); Bilirubin,Urine Negative (Negative); Blood, Urine Negative (Negative); Color,Urine YELLOW (Yellow); Glucose,Urine (UA) Negative (Negative); Ketones,Urine Negative (Negative); Leukocyte Esterase,Urine Negative (Negative); Nitrate,Urine Negative (Negative); PH,Urine 6.5 (5.0-8.5); Protein,Urine Negative (Negative); Urobilinogen,Urine 0.2 EU/dl (0.2)
[2021-03-17 18:10] LABS: Bacteria,Urine Trace /lpf; RBC,Urine Occasional #/hpf (0-3); Squamous Epithelial Cell,Urine Occasional #/hpf (0-5); WBC,Urine Occasional #/hpf (0-3)
[2021-03-17 19:42] LABS: Alanine Aminotransferase 21 U/L (12-78); Albumin Level 3.9 g/dl (3.5-5.0); Albumin/Globulin Ratio 1.5 (1.1-1.8); Alkaline Phosphatase 136 U/L (38-126); Anion Gap 10.8 mEq/L (5-15); Aspartate Amino Transferase 33 U/L (14-36); Bilirubin,Total 0.5 mg/dl (0.2-1.3); Blood Urea Nitrogen 23 mg/dl (7-17); Carbon Dioxide 28 mmol/L (22.0-30.0); Chloride 101 mmol/L (98-107); Estimated Glomerular Filt Rate 34 ml/min (>60); GFR (African American) 41 ML/MIN (>60); Globulin 2.6 g/dL (1.3-3.2); Glucose 93 mg/dl (74-100); Potassium 3.8 mmoL/L (3.5-5.1); Sodium 136 mmol/L (136-145); Total Protein,Serum 6.5 g/dl (6.3-8.2)
[2021-03-17 19:48] LABS: C-Reactive Protein 5.9 mg/L (0-4)
[2021-03-19 11:19] LABS: Complement C3 145 mg/dL (82-167)
[2021-03-19 15:25] LABS: Anti-DNA (DS) Ab Qn <1 IU/mL (0-9)
== END ==
PROVIDERS: Visit Provider Internal Medicine Rheumatology
DX: I27.20 Pulmonary hypertension, unspecified (principal); I73.00 Raynaud's syndrome without gangrene; M25.551 Pain in right hip; M25.561 Pain in right knee; M32.9 Systemic lupus erythematosus, unspecified; M48.00 Spinal stenosis, site unspecified; D64.9 Anemia, unspecified; I10 Essential (primary) hypertension
CPT/HCPCS: 36415; 80053; 81001; 85025; 85651; 86140; 86161; 86225

== ENCOUNTER → 2021-04-03 14:33 | Outpatient (CLI) | payer MEDICARE, BC, SELFPAY ==
[2021-04-03 14:36] LABS: Microscopic, Urine URINE MICROSCOPIC (MICROSCOPIC)
[2021-04-03 16:09] LABS: Appearance,Urine CLEAR (Clear); Bilirubin,Urine Negative (Negative); Blood, Urine Negative (Negative); Color,Urine YELLOW (Yellow); Glucose,Urine (UA) Negative (Negative); Ketones,Urine Negative (Negative); Leukocyte Esterase,Urine Negative (Negative); Nitrate,Urine Negative (Negative); Protein,Urine Negative (Negative); Urobilinogen,Urine 0.2 EU/dl (0.2)
[2021-04-03 16:26] LABS: Albumin Level 4.5 g/dl (3.5-5.0); Anion Gap 15.6 mEq/L (5-15); Blood Urea Nitrogen 37 mg/dl (7-17); Calcium 9.3 mg/dl (8.4-10.2); Carbon Dioxide 29 mmol/L (22.0-30.0); Chloride 94 mmol/L (98-107); Estimated Glomerular Filt Rate 37 ml/min (>60); GFR (African American) 45 ML/MIN (>60); Glucose 94 mg/dl (74-100); Potassium 3.6 mmoL/L (3.5-5.1); Sodium 135 mmol/L (136-145)
[2021-04-03 16:39] LABS: 25-OH Vitamin D, Total 44.3 ng/mL (30-100)
[2021-04-03 16:55] LABS: Creatinine,Urine Random 39 mg/dL (Not Estab.); Microalbumin < 6.000 mg/L (0-16.7)
== END ==
PROVIDERS: Visit Provider Internal Medicine Nephrology
DX: N18.30 Chronic kidney disease, stage 3 unspecified (principal)
CPT/HCPCS: 36415; 80069; 81001; 82043; 82306; 82570

== ENCOUNTER → 2021-04-07 10:22 | Outpatient (POV) | payer MEDICARE, BC, SELFPAY | PROVIDERS: Visit Provider Internal Medicine Nephrology | DX: Z00.00 Encounter for general adult medical examination without abnormal findings (principal) ==

== ENCOUNTER → 2021-04-16 10:21 | Outpatient (CLI) | payer MEDICARE, BC, SELFPAY ==
[2021-04-16 10:59] LABS: Basophils # 0.1 K/mm3 (0-0.2); Basophils % 1.4 % (0.1-2.0); Eosinophils # 0.7 K/mm3 (0.0-0.4); Eosinophils % 18.9 % (0.1-12.0); Hematocrit 39.6 % (37.0-47.0); Hemoglobin 12.5 g/dL (12.2-16.2); Lymphocytes # 1.7 K/mm3 (0.7-4.5); Lymphocytes % 46.4 % (10-50); Mean Corpuscular HGB Conc 31.5 g/dL (31.8-35.4); Mean Corpuscular Hemoglobin 27.2 pg (27.0-31.2); Mean Corpuscular Volume 86.2 fl (81-99); Mean Platelet Volume 8.8 fl (7.4-10.4); Monocytes # 0.2 K/mm3 (0.1-1.0); Monocytes % 6.6 % (1.7-9.3); Neutrophils % 26.8 % (37.0-80.0); Platelet Count 192 K/mm3 (142-424); Red Blood Count 4.59 M/mm3 (4.20-5.40); Red Cell Distribution Width 16.2 % (11.5-17.5); White Blood Count 3.7 K/mm3 (4.8-10.8)
[2021-04-16 11:41] LABS: Alanine Aminotransferase 12 U/L (12-78); Albumin/Globulin Ratio 1.5 (1.1-1.8); Alkaline Phosphatase 120 U/L (38-126); Aspartate Amino Transferase 24 U/L (14-36); Bilirubin,Total 0.5 mg/dl (0.2-1.3); Blood Urea Nitrogen 24 mg/dl (7-17); Calcium 9.1 mg/dl (8.4-10.2); Carbon Dioxide 27 mmol/L (22.0-30.0); Chloride 103 mmol/L (98-107); Estimated Glomerular Filt Rate 34 ml/min (>60); GFR (African American) 41 ML/MIN (>60); Globulin 2.6 g/dL (1.3-3.2); Glucose 92 mg/dl (74-100); Magnesium 1.8 mg/dl (1.6-2.3); Sodium 138 mmol/L (136-145); Total Protein,Serum 6.6 g/dl (6.3-8.2)
[2021-04-16 12:11] LABS: Thyroid Stimulating Hormone 2.53 uIU/mL (0.465-4.68)
[2021-04-16 12:29] LABS: Vitamin B12 873 pg/mL (239-931)
== END ==
PROVIDERS: Visit Provider Nurse Practitioner Family
DX: R53.81 Other malaise (principal); R53.83 Other fatigue
CPT/HCPCS: 36415; 80053; 82607; 83735; 84443; 85025

== ENCOUNTER 2021-05-27 15:55 | Emergency (ER) | payer MEDICARE, BC, SELFPAY ==
[2021-05-27 15:56] VITALS: BP 139/71; PULSE 93; RESP 16; TEMP 36.3; O2SAT 98; BMI 24.9
--- NOTE | 2021-05-27 16:09 | HMH.EDWEAK ---
ED Disposition Clinical Impression: Hypokalemia Disposition: Home, Self-Care Condition on Discharge: Fair Instructions: DI for Hypokalemia Additional Instructions: Please increase your potassium pill doses from 2 tablets a day to 4 tablets a day for the next few days. Then follow-up with your primary care doctor to have your potassium checked again. I recommend you have your potassium checked again in the next 3 days. Return to the emergency department if you feel worse in any way. Referrals: Miller Hazel MD [Primary Care Provider] - - Critical Care Critical Care Time: No Attestation: On 05/27/21, the high probability of a clinically significant, sudden or life threatening deterioration of the following system(s) required my full and direct attention, intervention and personal management. The time I documented below is in addition to time spent performing reported procedures but includes the following listed in this critical care notation. Medical Decision Making - Medical Records Medical records reviewed: Yes: I reviewed the patient's medical records. - Cecil Inquiry Pt receiving controlled substance: No Vital Signs: 05/27/21 15:56 Temperature 97.4 F L Temperature Source Oral Pulse Rate [Right] 93 H Respiratory Rate 16 Blood Pressure [Right Arm] 139/71 Blood Pressure Mean [Right Arm] 93 02 Sat by Pulse Oximetry 98 Oxygen Delivery Method Room Air - Lab Data Lab results reviewed: Yes: I reviewed the patient's lab results. Lab Results 05/27/21 16:40: WBC 5.2, RBC 4.81, Hgb 13.6, Hct 42.8, MCV 88.9, MCH 28.3, MCHC 31.9, RDW 15.0, Plt Count 245, MPV 9.2, Neut % (Auto) 63.2, Lymph % (Auto) 21.7, Jefferson % (Auto) 9.4 H, Eos % (Auto) 4.5, Baso % (Auto) 1.2, Neut # (Auto) 3.3, Lymph # (Auto) 1.1, Jefferson # (Auto) 0.5, Eos # (Auto) 0.2, Baso # (Auto) 0.1 05/27/21 16:40: Sodium 133 L, Potassium 2.2 L*, Chloride 80 L, Carbon Dioxide 38 H, Anion Gap 17.2 H, BUN 52 H, Creatinine 2.00 H, Estimated Creat Clear 29, Estimated GFR 24 L, Est GFR ( Amer) 30 L, Glucose 95, Calcium 9.6, Total Bilirubin 0.6, AST 27, ALT 11 L, Alkaline Phosphatase 163 H, Total Protein 8.6 H D, Albumin 4.6, Globulin 4.0 H, Albumin/Globulin Ratio 1.2 05/27/21 16:40: Magnesium 2.1 05/27/21 18:57: Urine Color Yellow, Urine Appearance Sl cloudy, Urine pH 6.5, Ur Specific [place] 1.010, Urine Protein Negative, Urine Glucose (UA) Negative, Urine Ketones Negative, Urine Blood Negative, Urine Nitrate Negative, Urine Bilirubin Negative, Urine Urobilinogen 0.2, Ur Leukocyte Esterase 3+ A, Urine WBC 50-100, Ur Squamous Epith Cells 3-5, Urine Bacteria 4+ Result diagrams: 05/27/21 16:40 05/27/21 16:40 Orders (Tests/Meds): ED MEDICATIONS Generic Name Dose Route Start Last Admin Trade Name Freq PRN Reason Stop Dose Admin Lactated Ringer's 1,000 mls @ 999 mls/hr 05/27/21 17:30 05/27/21 19:01 Lactated Ringer's 1000 Ml Bag IV 05/27/21 18:30 999 mls/hr .Q1H1M HERBERT Administration Discontinued Medications Generic Name Dose Route Start Last Admin Trade Name Freq PRN Reason Stop Dose Admin Potassium Chloride 60 meq 05/27/21 17:21 05/27/21 19:00 Potassium Chloride 20meq Tab PO 05/27/21 17:22 60 meq ONCE ONE Administration ORDERS Category Date Time Status Urine Culture Stat Micro 05/27/21 18:57 Received Medical Decision Narrative: The patient's work-up in the emergency department revealed that she is hypokalemic. She already takes supplemental potassium in combination with Lasix. The patient was given potassium in the emergency department as well as 1 L of lactated Ringer's. She states that she feels much better now. The remainder of the patient's work-up did not reveal any life-threatening or dangerous causes for the patient's weakness. The patient will be discharged in stable and improved condition with instructions to increase her potassium intake and have her serum potassium levels checked in the next few day
--- NOTE | 2021-05-27 16:13 | CT_ITS ---
PROCEDURE INFORMATION: Exam: CT Head Without Contrast Exam date and time: 05/27/2021 4:13 PM Age: 75 years old Clinical indication: Weakness, extremity and other: Shaking; Additional info: Weakness and shaking TECHNIQUE: Imaging protocol: Computed tomography of the head without contrast. Radiation optimization: All CT scans at this facility use at least one of these dose optimization techniques: automated exposure control; mA and/or kV adjustment per patient size (includes targeted exams where dose is matched to clinical indication); or iterative reconstruction. COMPARISON: CT HEAD/BRAIN WO CON 03/06/2021 12:36 AM FINDINGS: Brain: No hemorrhage or evolving transcortical infarct seen. Mild cerebral volume loss. Cerebral ventricles: The ventricles are stable, mildly enlarged probably reflecting volume loss. Paranasal sinuses: Visualized sinuses are unremarkable. No fluid levels. Mastoid air cells: Visualized mastoid air cells are well aerated. Orbital cavity: Prior left lens surgery. Bones/joints: No acute fracture seen. Chronic appearing fracture at the base of the right nasal bone. Soft tissues: Unremarkable. IMPRESSION: No acute intracranial abnormality seen.
--- NOTE | 2021-05-27 16:42 | PC.NURSE ---
PT TO CT SCANNER VIA STRETCHER AT THIS TIME.
[2021-05-27 17:00] LABS: Alanine Aminotransferase 11 U/L (12-78); Albumin Level 4.6 g/dl (3.5-5.0); Albumin/Globulin Ratio 1.2 (1.1-1.8); Alkaline Phosphatase 163 U/L (38-126); Aspartate Amino Transferase 27 U/L (14-36); Bilirubin,Total 0.6 mg/dl (0.2-1.3); Blood Urea Nitrogen 52 mg/dl (7-17); Calcium 9.6 mg/dl (8.4-10.2); Chloride 80 mmol/L (98-107); Creatinine Clearance Estimated 29 mL/min (50-200); Estimated Glomerular Filt Rate 24 ml/min (>60); GFR (African American) 30 ML/MIN (>60); Glucose 95 mg/dl (74-100); Magnesium 2.1 mg/dl (1.6-2.3); Sodium 133 mmol/L (136-145); Total Protein,Serum 8.6 g/dl (6.3-8.2)
[2021-05-27 17:04] LABS: Potassium 2.2 mmoL/L (3.5-5.1)
[2021-05-27 17:05] LABS: Basophils # 0.1 K/mm3 (0-0.2); Basophils % 1.2 % (0.1-2.0); Eosinophils # 0.2 K/mm3 (0.0-0.4); Eosinophils % 4.5 % (0.1-12.0); Hematocrit 42.8 % (37.0-47.0); Hemoglobin 13.6 g/dL (12.2-16.2); Lymphocytes # 1.1 K/mm3 (0.7-4.5); Lymphocytes % 21.7 % (10-50); Mean Corpuscular HGB Conc 31.9 g/dL (31.8-35.4); Mean Corpuscular Hemoglobin 28.3 pg (27.0-31.2); Mean Corpuscular Volume 88.9 fl (81-99); Mean Platelet Volume 9.2 fl (7.4-10.4); Monocytes # 0.5 K/mm3 (0.1-1.0); Monocytes % 9.4 % (1.7-9.3); Neutrophils # 3.3 K/mm3 (1.8-7.8); Neutrophils % 63.2 % (37.0-80.0); Platelet Count 245 K/mm3 (142-424); Red Blood Count 4.81 M/mm3 (4.20-5.40); White Blood Count 5.2 K/mm3 (4.8-10.8)
--- NOTE | 2021-05-27 17:05 | PC.NURSE ---
[place] called from lab to notify this nurse of critical Potassium results of 2.2 MD notified.
[2021-05-27 17:07] LABS: Anion Gap 17.2 mEq/L (5-15); Carbon Dioxide 38 mmol/L (22.0-30.0)
[2021-05-27 19:11] LABS: Microscopic, Urine URINE MICROSCOPIC (MICROSCOPIC)
[2021-05-27 19:16] LABS: Appearance,Urine SL CLOUDY (Clear); Bilirubin,Urine Negative (Negative); Blood, Urine Negative (Negative); Color,Urine YELLOW (Yellow); Glucose,Urine (UA) Negative (Negative); Ketones,Urine Negative (Negative); Leukocyte Esterase,Urine 3+ (Negative); Nitrate,Urine Negative (Negative); PH,Urine 6.5 (5.0-8.5); Protein,Urine Negative (Negative); Urobilinogen,Urine 0.2 EU/dl (0.2)
[2021-05-27 19:30] LABS: Bacteria,Urine 4+ /lpf; WBC,Urine 50-100 #/hpf (0-3)
[2021-05-27 20:16] VITALS: BP 146/69; PULSE 88; RESP 18; TEMP 36.3; O2SAT 98
== END 2021-05-27 20:19 | disposition home or self-care (01) ==
PROVIDERS: Emergency Provider Emergency Medicine; PCP Internal Medicine Adolescent Medicine
DX: E87.6 Hypokalemia (principal); K21.9 Gastro-esophageal reflux disease without esophagitis; E78.5 Hyperlipidemia, unspecified; I10 Essential (primary) hypertension; N28.9 Disorder of kidney and ureter, unspecified; Z87.891 Personal history of nicotine dependence; Z79.899 Other long term (current) drug therapy
CPT/HCPCS: 70450; 80053; 81001; 83735; 85025; 87086; 96365; 99283

== ENCOUNTER → 2021-05-30 13:23 | Outpatient (CLI) | payer MEDICARE, BC, SELFPAY ==
[2021-05-30 14:06] LABS: Potassium 3.5 mmoL/L (3.5-5.1)
== END ==
PROVIDERS: Visit Provider Internal Medicine Adolescent Medicine
DX: E87.6 Hypokalemia (principal)
CPT/HCPCS: 36415; 84132

== ENCOUNTER 2021-05-30 18:47 | Emergency (ER) | payer MEDICARE, BC, SELFPAY ==
[2021-05-30 18:48] VITALS: BP 169/77; PULSE 89; RESP 17; TEMP 36.6; O2SAT 98; BMI 28.5
[2021-05-30 20:00] VITALS: BP 169/77; O2SAT 95
--- NOTE | 2021-05-30 20:16 | CT_ITS ---
PROCEDURE INFORMATION: Exam: CT Abdomen And Pelvis Without Contrast Exam date and time: 05/30/2021 8:16 PM Age: 75 years old Clinical indication: Abdominal pain; Localized; Right upper quadrant (ruq); Prior surgery; Surgery date: 6+ months; Surgery type: Back suegery; Additional info: Abd pain TECHNIQUE: Imaging protocol: Computed tomography of the abdomen and pelvis without contrast. Radiation optimization: All CT scans at this facility use at least one of these dose optimization techniques: automated exposure control; mA and/or kV adjustment per patient size (includes targeted exams where dose is matched to clinical indication); or iterative reconstruction. COMPARISON: CT ABDOMEN PELVIS WO CON 03/06/2021 12:49 AM FINDINGS: Lungs: Bibasilar atelectasis. Unchanged tiny nodules. Liver: Normal. No mass. Gallbladder and bile ducts: Normal. No calcified stones. No ductal dilation. Pancreas: Normal. No ductal dilation. Spleen: Normal. No splenomegaly. Adrenal glands: Normal. No mass. Kidneys and ureters: Normal. No hydronephrosis. Extrarenal pelvis on the left. Stomach and bowel: Unremarkable. No obstruction. No mucosal thickening. Appendix: No evidence of appendicitis. Intraperitoneal space: Unremarkable. No free air. No significant fluid collection. Vasculature: Coronary artery calcifications. Lymph nodes: Mildly prominent retroperitoneal lymph nodes similar to prior. Urinary bladder: Unremarkable as visualized. Reproductive: Unremarkable as visualized. Bones/joints: Postsurgical changes seen in the spine and pelvis. This causes significant artifact. Soft tissues: Unremarkable. IMPRESSION: No acute intra-abdominal pathology
--- NOTE | 2021-05-30 20:21 | PC.NURSE ---
Pt now sates she has been passing out New orders per MD
--- NOTE | 2021-05-30 20:22 | HMH.EDNVD ---
ED Disposition Clinical Impression: Vasovagal episode Abdominal pain Qualifiers: Abdominal location: epigastric Qualified Code(s): R10.13 - Epigastric pain Disposition: Home, Self-Care Condition on Discharge: Good Instructions: DI for Acute Abdominal Pain Additional Instructions: call pcp for follow up Referrals: Miller Hazel MD [Primary Care Provider] - - Critical Care Critical Care Time: No Attestation: On 05/30/21, the high probability of a clinically significant, sudden or life threatening deterioration of the following system(s) required my full and direct attention, intervention and personal management. The time I documented below is in addition to time spent performing reported procedures but includes the following listed in this critical care notation. Medical Decision Making - Medical Records Medical records reviewed: Yes: I reviewed the patient's medical records. - Cecil Inquiry Pt receiving controlled substance: No Vital Signs: 05/30/21 18:48 05/30/21 20:00 05/30/21 20:36 Temperature 97.9 F Temperature Source Oral Pulse Rate 68 Pulse Rate [Right Radial] 89 Respiratory Rate 17 Blood Pressure 169/77 H 180/68 H Blood Pressure [Right Arm] 169/77 H Blood Pressure Mean [Right Arm] 107 Blood Pressure Source [Right Arm] Automatic Cuff Blood Pressure Position [Right Arm] Sitting 02 Sat by Pulse Oximetry 98 95 95 Oxygen Delivery Method Room Air Room Air Room Air 05/30/21 21:00 05/30/21 22:58 05/30/21 23:00 Temperature Temperature Source Pulse Rate 85 76 58 L Pulse Rate [Right Radial] Respiratory Rate Blood Pressure 149/73 H 177/92 H 175/80 H Blood Pressure [Right Arm] Blood Pressure Mean [Right Arm] Blood Pressure Source [Right Arm] Blood Pressure Position [Right Arm] 02 Sat by Pulse Oximetry 96 96 97 Oxygen Delivery Method Room Air Room Air Room Air - Lab Data Lab results reviewed: Yes: I reviewed the patient's lab results. Lab Results 05/30/21 19:33: Urine Color Yellow, Urine Appearance Clear, Urine pH 7.5, Ur Specific [place] 1.010, Urine Protein Negative, Urine Glucose (UA) Negative, Urine Ketones Negative, Urine Blood Negative, Urine Nitrate Negative, Urine Bilirubin Negative, Urine Urobilinogen 0.2, Ur Leukocyte Esterase 1+ A, Urine RBC Occasional, Urine WBC Occasional, Ur Squamous Epith Cells Occasional, Urine Bacteria Trace 05/30/21 22:58: WBC 4.9, RBC 4.20, Hgb 12.0 L, Hct 37.2, MCV 88.5, MCH 28.5, MCHC 32.2, RDW 15.0, Plt Count 239, MPV 9.2, Neut % (Auto) 49.2, Lymph % (Auto) 27.2, Carver % (Auto) 16.0 H, Eos % (Auto) 7.2, Baso % (Auto) 0.5, Neut # (Auto) 2.4, Lymph # (Auto) 1.3, Carver # (Auto) 0.8, Eos # (Auto) 0.4, Baso # (Auto) 0.0, ESR 4 05/30/21 22:58: Sodium 134 L, Potassium 3.6, Chloride 95 L, Carbon Dioxide 32 H, Anion Gap 10.6, BUN 21 H, Creatinine 1.00, Estimated Creat Clear 56, Estimated GFR 54 L, Est GFR ( Amer) 66, Glucose 107 H, Calcium 9.2, Total Bilirubin 0.7, AST 29, ALT 6 L, Alkaline Phosphatase 145 H, C-Reactive Protein 24.6 H, Total Protein 7.0, Albumin 3.8, Globulin 3.2, Albumin/Globulin Ratio 1.2, Procalcitonin 0.053 05/30/21 22:58: Troponin I 0.02, Lipase 231, TSH 0.56, Thyroxine (T4) 7.6 Result diagrams: 05/30/21 22:58 05/30/21 22:58 Orders (Tests/Meds): ED MEDICATIONS Generic Name Dose Route Start Last Admin Trade Name Freq PRN Reason Stop Dose Admin Sodium Chloride 1,000 mls @ 999 mls/hr 05/30/21 20:30 Sod Chlor 0.9% 1000ml Bag IV 05/30/21 21:30 .Q1H1M HERBERT ORDERS Category Date Time Status Troponin I Q3H Lab 05/30/21 01:30 Ordered Troponin I Q3H Lab 05/31/21 02:30 Ordered Urine Culture Stat Micro 05/30/21 19:33 Received - CT Data CT Scan: Abdomen, Pelvis Time Received: 00:[address] Reviewed: Yes: I have viewed the radiologist's interpretation Preliminary Findings: Normal/NAD - ECG Data Tracing #1 Normal Sinus Rhythm: Yes Ischemic changes: non-specific ST-
--- NOTE | 2021-05-30 20:26 | ECG_ITS ---
APPROVED REPORT Exam: Resting ECG HR:92 bpm ECG Measurements Heart Rate 92 AXES ID 136 P 62 QRSd 76 QRS 16 QT 360 T 225 QTc 445 Conclusion Sinus rhythm with occasional premature ventricular complexes Left atrial abnormaltiy - old anteroseptal changes Abnormal ECG Electronically signed by : Miller Hazel MD 06/01/2021 16:07:16
[2021-05-30 20:36] VITALS: BP 180/68; PULSE 68; O2SAT 95
[2021-05-30 20:52] LABS: Microscopic, Urine URINE MICROSCOPIC (MICROSCOPIC)
[2021-05-30 20:57] LABS: Appearance,Urine CLEAR (Clear); Bilirubin,Urine Negative (Negative); Blood, Urine Negative (Negative); Color,Urine YELLOW (Yellow); Glucose,Urine (UA) Negative (Negative); Ketones,Urine Negative (Negative); Leukocyte Esterase,Urine 1+ (Negative); Nitrate,Urine Negative (Negative); PH,Urine 7.5 (5.0-8.5); Protein,Urine Negative (Negative); Urobilinogen,Urine 0.2 EU/dl (0.2)
[2021-05-30 21:00] VITALS: BP 149/73; PULSE 85; O2SAT 96
[2021-05-30 21:02] LABS: Bacteria,Urine Trace /lpf; RBC,Urine Occasional #/hpf (0-3); Squamous Epithelial Cell,Urine Occasional #/hpf (0-5); WBC,Urine Occasional #/hpf (0-3)
[2021-05-30 22:58] VITALS: BP 177/92; PULSE 76; O2SAT 96
[2021-05-30 23:00] VITALS: BP 175/80; PULSE 58; O2SAT 97
[2021-05-30 23:06] LABS: Basophils % 0.5 % (0.1-2.0); Eosinophils # 0.4 K/mm3 (0.0-0.4); Eosinophils % 7.2 % (0.1-12.0); Hematocrit 37.2 % (37.0-47.0); Lymphocytes # 1.3 K/mm3 (0.7-4.5); Lymphocytes % 27.2 % (10-50); Mean Corpuscular HGB Conc 32.2 g/dL (31.8-35.4); Mean Corpuscular Hemoglobin 28.5 pg (27.0-31.2); Mean Corpuscular Volume 88.5 fl (81-99); Mean Platelet Volume 9.2 fl (7.4-10.4); Monocytes # 0.8 K/mm3 (0.1-1.0); Neutrophils # 2.4 K/mm3 (1.8-7.8); Neutrophils % 49.2 % (37.0-80.0); Platelet Count 239 K/mm3 (142-424); White Blood Count 4.9 K/mm3 (4.8-10.8)
[2021-05-30 23:15] LABS: Lipase 231 U/L (23-300)
[2021-05-30 23:16] LABS: Alanine Aminotransferase 6 U/L (12-78); Albumin Level 3.8 g/dl (3.5-5.0); Albumin/Globulin Ratio 1.2 (1.1-1.8); Alkaline Phosphatase 145 U/L (38-126); Anion Gap 10.6 mEq/L (5-15); Aspartate Amino Transferase 29 U/L (14-36); Bilirubin,Total 0.7 mg/dl (0.2-1.3); Blood Urea Nitrogen 21 mg/dl (7-17); Calcium 9.2 mg/dl (8.4-10.2); Carbon Dioxide 32 mmol/L (22.0-30.0); Chloride 95 mmol/L (98-107); Creatinine Clearance Estimated 56 mL/min (50-200); Estimated Glomerular Filt Rate 54 ml/min (>60); GFR (African American) 66 ML/MIN (>60); Globulin 3.2 g/dL (1.3-3.2); Glucose 107 mg/dl (74-100); Potassium 3.6 mmoL/L (3.5-5.1); Sodium 134 mmol/L (136-145)
[2021-05-30 23:21] LABS: C-Reactive Protein 24.6 mg/L (0-4)
[2021-05-30 23:28] LABS: Erythrocyte Sedimentation Rate 4 mm/hr (0-30)
[2021-05-30 23:32] LABS: Procalcitonin 0.053 ng/mL (0.0-2.0); Troponin I 0.02 ng/ml (0.00-0.034)
[2021-05-30 23:36] LABS: T4 (Thyroxine) 7.6 ug/dl (5.53-11.0)
[2021-05-30 23:50] LABS: Thyroid Stimulating Hormone 0.56 uIU/mL (0.465-4.68)
[2021-05-31 00:22] VITALS: BP 136/70; PULSE 84; RESP 20; TEMP 36.7; O2SAT 97
== END 2021-05-31 00:33 | disposition home or self-care (01) ==
PROVIDERS: Emergency Medicine; Emergency Provider Emergency Medicine; PCP Internal Medicine Adolescent Medicine
DX: R42 Dizziness and giddiness (principal); R10.13 Epigastric pain; E11.65 Type 2 diabetes mellitus with hyperglycemia; K21.9 Gastro-esophageal reflux disease without esophagitis; I10 Essential (primary) hypertension; E78.5 Hyperlipidemia, unspecified; Z87.891 Personal history of nicotine dependence; W01.0XXA Fall on same level from slipping, tripping and stumbling without subsequent striking against object, initial encounter; Y92.013 Bedroom of single-family (private) house as the place of occurrence of the external cause
CPT/HCPCS: 36415; 74176; 80053; 81001; 83690; 84132; 84145; 84436; 84443; 84484; 85025; 85651; 86140; 87086; 93005; 99283

== ENCOUNTER → 2021-06-24 10:52 | Outpatient (CLI) | payer MEDICARE, BC, SELFPAY ==
[2021-06-24 11:23] LABS: Basophils % 0.4 % (0.1-2.0); Eosinophils # 0.4 K/mm3 (0.0-0.4); Eosinophils % 9.5 % (0.1-12.0); Hematocrit 35.6 % (37.0-47.0); Hemoglobin 11.3 g/dL (12.2-16.2); Lymphocytes % 23.9 % (10-50); Mean Corpuscular HGB Conc 31.7 g/dL (31.8-35.4); Mean Corpuscular Volume 88.3 fl (81-99); Mean Platelet Volume 9.2 fl (7.4-10.4); Monocytes # 0.4 K/mm3 (0.1-1.0); Monocytes % 8.4 % (1.7-9.3); Neutrophils # 2.4 K/mm3 (1.8-7.8); Neutrophils % 57.8 % (37.0-80.0); Platelet Count 293 K/mm3 (142-424); Red Blood Count 4.03 M/mm3 (4.20-5.40); Red Cell Distribution Width 16.5 % (11.5-17.5); White Blood Count 4.2 K/mm3 (4.8-10.8)
[2021-06-24 12:13] LABS: Alanine Aminotransferase 7 U/L (12-78); Albumin Level 3.9 g/dl (3.5-5.0); Albumin/Globulin Ratio 1.3 (1.1-1.8); Alkaline Phosphatase 161 U/L (38-126); Anion Gap 10.6 mEq/L (5-15); Aspartate Amino Transferase 22 U/L (14-36); Bilirubin,Total 0.6 mg/dl (0.2-1.3); Blood Urea Nitrogen 24 mg/dl (7-17); Calcium 9.5 mg/dl (8.4-10.2); Carbon Dioxide 34 mmol/L (22.0-30.0); Chloride 88 mmol/L (98-107); Estimated Glomerular Filt Rate 32 ml/min (>60); GFR (African American) 38 ML/MIN (>60); Globulin 2.9 g/dL (1.3-3.2); Glucose 111 mg/dl (74-100); Potassium 3.6 mmoL/L (3.5-5.1); Sodium 129 mmol/L (136-145); Total Protein,Serum 6.8 g/dl (6.3-8.2)
[2021-06-24 12:19] LABS: C-Reactive Protein 25.9 mg/L (0-4)
[2021-06-24 14:29] LABS: Erythrocyte Sedimentation Rate 39 mm/hr (0-30)
[2021-06-25 09:14] LABS: Hep A Ab, IgM Negative (Negative); Hepatitis B Core Antibody IgM Negative (Negative); Hepatitis B Surface Antigen Negative (Negative); Hepatitis C Antibody <0.1 s/co ratio (0.0-0.9)
[2021-07-01 06:16] LABS: QuantiFERON-TB Gold Plus Negative (Negative)
== END ==
PROVIDERS: Visit Provider Nurse Practitioner Family
DX: M32.9 Systemic lupus erythematosus, unspecified (principal); M31.6 Other giant cell arteritis; R53.83 Other fatigue
CPT/HCPCS: 36415; 80053; 80074; 85025; 85651; 86140; 86480

== ENCOUNTER → 2021-06-26 10:43 | Outpatient (CLI) | payer MEDICARE, BC, SELFPAY | PROVIDERS: Visit Provider Internal Medicine Adolescent Medicine | DX: R30.0 Dysuria (principal); B96.20 Unspecified Escherichia coli [E. coli] as the cause of diseases classified elsewhere | CPT/HCPCS: 87086; 87088; 87186 ==

== ENCOUNTER → 2021-08-04 11:21 | Outpatient (POV) | payer MEDICARE, BC, SELFPAY ==
[2021-08-04 12:12] LABS: Microscopic, Urine URINE MICROSCOPIC (MICROSCOPIC)
[2021-08-04 14:23] LABS: Albumin Level 3.6 g/dl (3.5-5.0); Anion Gap 9.3 mEq/L (5-15); Blood Urea Nitrogen 7 mg/dl (7-17); Calcium 9.1 mg/dl (8.4-10.2); Carbon Dioxide 27 mmol/L (22.0-30.0); Chloride 99 mmol/L (98-107); Estimated Glomerular Filt Rate 70 ml/min (>60); GFR (African American) 85 ML/MIN (>60); Glucose 87 mg/dl (74-100); Phosphorous 3.8 mg/dl (2.5-4.5); Potassium 4.3 mmoL/L (3.5-5.1); Sodium 131 mmol/L (136-145)
[2021-08-04 14:39] LABS: Appearance,Urine CLEAR (Clear); Bilirubin,Urine Negative (Negative); Blood, Urine Negative (Negative); Color,Urine YELLOW (Yellow); Glucose,Urine (UA) Negative (Negative); Ketones,Urine Negative (Negative); Leukocyte Esterase,Urine Negative (Negative); Nitrate,Urine Negative (Negative); Protein,Urine Negative (Negative); Specific Gravity, Urine 1.015 (1.005-1.030); Urobilinogen,Urine 0.2 EU/dl (0.2)
[2021-08-04 14:43] LABS: 25-OH Vitamin D, Total 42.4 ng/mL (30-100)
[2021-08-04 15:01] LABS: Creatinine,Urine Random 62 mg/dL (Not Estab.); Microalbumin < 6.000 mg/L (0-16.7)
[2021-08-04 15:03] LABS: Squamous Epithelial Cell,Urine Occasional #/hpf (0-5); WBC,Urine Occasional #/hpf (0-3)
== END ==
PROVIDERS: Visit Provider Internal Medicine Nephrology
DX: N18.30 Chronic kidney disease, stage 3 unspecified (principal)
CPT/HCPCS: 36415; 80069; 81001; 82043; 82306; 82570

== ENCOUNTER 2021-08-07 10:00 | Outpatient (RCR) | payer MEDICARE, BC, SELFPAY ==
--- NOTE | 2021-07-31 10:38 | HMH.PTOPWND ---
Rehab Outpt Wound Evaluation Rehab OP Wound Evaluation Start: 07/31/21 10:05 Freq: Status: Active Protocol: Document 07/31/21 10:31 MANA (Rec: 07/31/21 10:38 PHOSTEVE [id number]) Electronically Signed By Jaime Hazel, PT 07/31/21 10:31 Subjective/History History History Pt is 75 yowf who presents with c/o B LE edema for many years, It started after my last back surgery. She has mild tenderness to palpation throughout B LE, worse on the L LE. She reports no c/o pain or numbness throughout B LE at this time. She has hx of PAD, OA, Lumbar fusion, DVT, CVI, HTN, HL, and recent diagnosis of Parkinson's disease. Subjective Subjective Currently 2+ pitting edema to B LE from knee distally, 2/4 tenderness to palpation on B LE gaitor area. Increased fibrotic edema noted in L thigh. Lymphedema Eval Classification of Lymphedema Secondary Lymphedema Yes Stemmer's sign Stemmer's Sign yes Stage of Lymphedema Lymphedema stages Stage II (Pitting edema, increased fibrosis w/ decreased pitting) Skin Changes Dry Skin Yes Taut, Shiny Skin Yes: PAD Skin Folds Yes Discoloration of Skin Yes Other Changes Yes Affected Extremities Areas Affected by Lymphedema/Edema Right Lower Extremity,Left Lower Extremity Manual Lymphatic Drainage Treatment Area MLD Treatment Area Right Lower Extremity,Left Lower Extremity Wound Problems/Impairments Impairments Problems/Impairmments Palpation Tenderness,Impaired Range of Motion,Impaired Strength,Impaired Endurance, Impaired Transfers,Impaired Gait Pattern,Impaired Walking, Increased Edema,Lymphedema Present,Impaired Self Care/ Self Management Prognosis Rehab Potential Good Clinical Impression Consistent with Diagnosis Yes Short Term Goals Number of Weeks 4 Decreased Palpation Tenderness Yes Decrease Edema Yes Patient to Understand Lymphedema Yes
== END 2021-08-07 10:05 | disposition home or self-care (01) ==
LOC: PT 10:00
PROVIDERS: PCP Internal Medicine Adolescent Medicine; Visit Provider Internal Medicine Adolescent Medicine
DX: R60.0 Localized edema (principal)
CPT/HCPCS: 97140; 97162; 97760

== ENCOUNTER 2021-08-07 11:00 | Outpatient (RCR) | payer MEDICARE, BC, SELFPAY | END 2021-08-07 11:05 | disposition home or self-care (01) | LOC: PT 11:00 | PROVIDERS: PCP Internal Medicine Adolescent Medicine; Visit Provider Psychiatry & Neurology Neurology | DX: G20 Parkinson's disease (principal) | CPT/HCPCS: 97010; 97014; 97110; 97112; 97116; 97163; 97164; G0283 ==

== ENCOUNTER 2021-08-11 10:54 | Observation (INO) | payer MEDICARE, BC, SELFPAY ==
[2021-08-11 10:58] VITALS: BP 126/56; PULSE 83; RESP 16; TEMP 36.3; O2SAT 96; BMI 27.1
--- NOTE | 2021-08-11 11:47 | CT_ITS ---
PROCEDURE: CT ABDOMEN PELVIS WO CON CLINICAL INDICATION: diarrhea, abdominal pain COMPARISON: CT CT ABDOMEN PELVIS WO CON from 05/30/2021 TECHNIQUE: Axial images obtained with sagittal and coronal reformats. All CT scans at the facility use one or more dose reduction, viz: automated exposure control, ma/kV adjustment per patient size (including targeted exams where dose is matched to indication, i.e. head), or iterative reconstruction technique. FINDINGS: There is a persistent parenchymal opacity in the right lung base laterally incompletely imaged. There is thickening of the gastric wall. This could be due to nondistention versus gastritis. The liver, spleen, adrenal, pancreas, and gallbladder have an unremarkable unenhanced appearance. No renal or ureteral calculi. Prominent left renal pelvis not significantly changed. Significant artifact is present from postsurgical changes within the lower thoracic and entire lumbar spine. No intestinal obstruction or free air. Lack of IV and oral contrast limits evaluation. Atherosclerotic calcification of the aortoiliac vessels. No evidence of aortic aneurysm. The uterus is retroverted. Small amount fluid is present in the pelvis. No evidence of diverticulitis or appendicitis. Status post posterior fusion with inter pedicular screws from T10-S1. Disc spacer devices are present at L5-S1, L1-L2, and L2-L3. There is some sclerosis of the femoral heads anteriorly on both sides with some minimal subchondral cystic changes consistent with osteoarthritis. IMPRESSION: Mild thickening of the gastric wall which could be due to nondistention versus gastritis. Other nonacute findings as described above. Dictated by: Artie Jones MD 08/11/2021 16:14 Artie Jones MD in [place] 08/11/2021 16:14
--- NOTE | 2021-08-11 11:48 | XR_ITS ---
PROCEDURE: XR CHEST 2V CLINICAL HISTORY: shortness of breath COMPARISON: CR XR CHEST PORTABLE from 01/13/[address] CHEST WO CON from 01/13/2021 CR XR CHEST 2V from 02/15/2021 CR XR CHEST AP from 03/06/[address] ABDOMEN PELVIS WO CON from 03/06/[address] ABDOMEN PELVIS WO CON from 08/11/2021 FINDINGS: The cardiomediastinal silhouette and pulmonary vascularity are within normal limits. Calcified granuloma is present in the right midlung. No lobar consolidation or collapse. Postsurgical changes the lower thoracic and lumbar spine. Inter pedicular screws are present beginning at T10 and extending inferiorly with inferior most aspect not covered on the exam. Since the previous CT scan of 01/14/2020 there has been interval development wedging T9 and T10 with loss of joint space. Please see addended abdominal CT report for further description. IMPRESSION: No acute cardiopulmonary pathology apparent. Increase wedging of T9 and T10 with postsurgical changes of the lower thoracic and lumbar spine. Please see addended abdominal CT report for further detail Dictated by: Artie Jones MD 08/11/2021 17:14 Artie Jones MD in [place] 08/11/2021 17:14
[2021-08-11 12:44] LABS: Coronavirus 19, PCR Not Detected (NotDetected); Influenza A, PCR Not Detected (NotDetected); Influenza B, PCR Not Detected (NotDetected)
[2021-08-11 13:06] LABS: Basophils % 0.2 % (0.1-2.0); Eosinophils # 0.5 K/mm3 (0.0-0.4); Eosinophils % 8.7 % (0.1-12.0); Hematocrit 30.6 % (37.0-47.0); Hemoglobin 9.5 g/dL (12.2-16.2); Lymphocytes # 0.6 K/mm3 (0.7-4.5); Lymphocytes % 11.9 % (10-50); Mean Corpuscular HGB Conc 30.9 g/dL (31.8-35.4); Mean Corpuscular Hemoglobin 26.2 pg (27.0-31.2); Mean Platelet Volume 9.1 fl (7.4-10.4); Monocytes # 0.2 K/mm3 (0.1-1.0); Monocytes % 3.1 % (1.7-9.3); Neutrophils # 4.1 K/mm3 (1.8-7.8); Platelet Count 475 K/mm3 (142-424); Red Blood Count 3.61 M/mm3 (4.20-5.40); Red Cell Distribution Width 23.4 % (11.5-17.5); White Blood Count 5.4 K/mm3 (4.8-10.8)
[2021-08-11 13:45] LABS: Chloride 98 mmol/L (98-107); Sodium 134 mmol/L (136-145)
[2021-08-11 13:46] LABS: Potassium 3.4 mmoL/L (3.5-5.1)
[2021-08-11 13:48] LABS: Albumin Level 4.1 g/dl (3.5-5.0); Albumin/Globulin Ratio 1.3 (1.1-1.8); Alkaline Phosphatase 161 U/L (38-126); Amylase 80 U/L (30-110); Anion Gap 12.4 mEq/L (5-15); Aspartate Amino Transferase 18 U/L (14-36); Bilirubin,Total 0.4 mg/dl (0.2-1.3); Blood Urea Nitrogen 9 mg/dl (7-17); Calcium 9.4 mg/dl (8.4-10.2); Carbon Dioxide 27 mmol/L (22.0-30.0); Creatinine Clearance Estimated 57 mL/min (50-200); Estimated Glomerular Filt Rate 61 ml/min (>60); GFR (African American) 74 ML/MIN (>60); Globulin 3.1 g/dL (1.3-3.2); Glucose 112 mg/dl (74-100); Total Protein,Serum 7.2 g/dl (6.3-8.2)
[2021-08-11 13:49] LABS: Lipase 98 U/L (23-300); Magnesium 1.5 mg/dl (1.6-2.3)
[2021-08-11 13:54] LABS: Alanine Aminotransferase < 4 U/L (12-78)
--- NOTE | 2021-08-11 13:59 | ECG_ITS ---
APPROVED REPORT Exam: Resting ECG HR:85 bpm ECG Measurements Heart Rate 85 AXES WI 130 P 64 QRSd 70 QRS 86 QT 348 T -54 QTc 414 Conclusion Normal sinus rhythm Septal infarct, age undetermined T wave abnormality, consider inferior ischemia T wave abnormality, consider anterolateral ischemia Abnormal ECG Electronically signed by : Miller Hazel MD 08/12/2021 12:16:39
--- NOTE | 2021-08-11 14:09 | SW/DCPLANNER ---
RECEIVED A CALL STATING PATIENT WOULD LIKE TO SPEAK WITH A GRIEF COUNSELOR...PATIENT STATED HER A COUPLE OF WEEKS AGO AND SHE HAS A BROKEN HEART.. 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
[2021-08-11 15:10] VITALS: BP 148/74; PULSE 84; RESP 20; TEMP 36.7
--- NOTE | 2021-08-11 16:15 | PC.NURSE ---
Patient is a direct admit to room 202. Patient is non tele and on 3L NC upon arrival to the floor. Patient is on room air baseline. Patient has been weaned to 1L NC. Patient is up with assist times 1/standby assist. Patient is alert and oriented. Patient has asked to speak to a grief counselor, over the recent passing of her spouse. A hospice grief counselor will be here on 08/11/21 to peak with patient. Bed in lowest position and phone and call light in reach. Will continue to monitor.
[2021-08-11 20:00] VITALS: BP 145/65; PULSE 86; RESP 16; TEMP 36.7; O2SAT 100
--- NOTE | 2021-08-11 20:58 | HMH.HP ---
*Admission Date: 08/11/21 *Chief complaint: weakness, diarrhea *History of present illness: 75 year old female with extensive PMH presented to outpatient clinic today with complaints of nausea, diarrhea, dry heaves, abdominal pain, somnolence and tingling her in her hands and feet. Has chronic, intermittent diarrhea but worse over the past 24-48 hours and associated with these other symptoms in the past 24 hours. She is having difficulty ambulating without feeling syncopal, has been dyspneic and unable to keep hydrated due to nausea and dry heaves. Due to her frailty, relative hypotension in the office and mild hypoxia she was admitted for IV hydration and additional evaluation. [facility] History I have reviewed the patient's past medical history: Yes 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: Reports:: Deep Vein Thrombosis, Gastroesophageal Reflux Disease(GERD), Heart Murmur, Hyperlipidemia, Hypertension, Palpitations, Peripheral Artery Disease, Peripheral Vascular Disease, Renal Disease Denies:: Asthma, Cancer, Chronic Obstructive Pulmonary Disease (COPD), Cerebrovascular Accident, Diabetes Mellitus Type 1, Diabetes Mellitus Type 2, MRSA, Myocardial Infarction *Have you ever received a pneumonia vaccine?: Yes *Have you received a flu vaccine this season?: Yes Other 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: Reports: Anemia, Arthritis, Glaucoma, Sinus Problems, Thyroid Disease, Other (Lupus). Denies: Hypothyroidism Laterality Cases: Bilateral: Breast Biopsy Other Surgeries: Yes: Colonoscopy, Tubal Ligation, Other (back surgery) Amputation: No Fractures: No - *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 Smoking Status: Former smoker Tobacco Type: cigarettes Alcohol Intake: never Alcohol Intake Frequency:: other Substance Use Type: denies use *Occupational Status:: retired Household Members: children *Travel in the last 8 weeks: None Family Hx:: Cancer, Coronary Artery Disease, Heart Attack, Hyperlipidemia, Hypertension, Kidney Disease, Thyroid Disorder, Alcoholism, Mental illness Review of Systems - Review of Systems Review of systems:: pertinent systems reviewed and negative unless documented below - Constitutional Reports fatigue, Reports malaise, Reports weakness, Denies fever(s) - Eyes Denies change in vision - ENT Reports headache(s), Denies dry mouth, Denies nasal congestion, Denies sore throat - *Cardiovascular Reports shortness of breath with activity, Reports leg swelling (chronic), Denies chest pain - *Respiratory Denies cough - *Gastrointestinal Reports abdominal pain, Reports loose stools, Reports nausea, Denies bright, red blood in stools, Denies vomiting - *Musculoskeletal Reports joint pain, Reports back pain (chronic), Reports tingling - Integumentary/Breasts Reports rash (facial, present several weeks) - *Neurologic Reports unsteadiness, Reports dizziness, Reports memory loss (chronic, followed by neurology) - Psychiatric Reports depression (recently, recently ) Meds Home Medications Medication Instructions Recorded Confirmed Type chlorthalidone 25 mg tablet 25 mg PO DAILY tab 11/10/17 08/11/21 History donepezil 10 mg tablet 10 mg PO HS 11/10/17 08/11/21 History dorzolamide 22.3 mg-timolol 6.8 1 drp OPHTHALMIC BID 11/10/17 08/11/21 History mg/mL eye drops fluticasone propionate 50 2 spry INTRANASAL DAILY 11/10/17 08/11/21 History mcg/actuation nasal spray,suspension pantoprazole 40 mg tablet,delayed 40 mg PO DAILY 11/10/17 08/11/21 History release simvastatin 20 mg tablet 20 mg PO HS 11/10/17 08/11/21 History methimazole 5 mg tablet 5 mg PO DAILY 90 Days tab 11/22/17 08/11/21 History nifedipine 60 mg tablet,extended 60 mg PO DAILY 11/22/17 08/11/21 History release ferrous gluconate 236 mg (27 mg 236 mg PO DAILY tab 08/03/18 08/11/21 History iron) tablet ascorbate calcium (vitamin C) 500 500 mg PO DAILY 03/31/19 08/11/21 History mg tablet aspirin 81 mg tablet,delayed 81 mg PO DAILY tab 03/31/19 08/11/21 History release bup
--- NOTE | 2021-08-12 05:59 | PC.NURSE ---
Pt rested well t/o the shift. Pt voiced x1 of pain in left foot, gave meds per MAR with relief. Pt remains on 1L NC with 02 >90%. Pt can ambulate with walker to bathroom x1 assist. Call light within reach.
[2021-08-12 07:20] LABS: Eosinophils # 0.7 K/mm3 (0.0-0.4); Monocytes # 0.2 K/mm3 (0.1-1.0)
[2021-08-12 07:38] LABS: Anion Gap 10.9 mEq/L (5-15); Blood Urea Nitrogen 6 mg/dl (7-17); Calcium 8.8 mg/dl (8.4-10.2); Carbon Dioxide 28 mmol/L (22.0-30.0); Chloride 99 mmol/L (98-107); Creatinine Clearance Estimated 57 mL/min (50-200); Estimated Glomerular Filt Rate 70 ml/min (>60); GFR (African American) 85 ML/MIN (>60); Glucose 90 mg/dl (74-100); Sodium 135 mmol/L (136-145)
[2021-08-12 07:42] LABS: Basophils % 0.4 % (0.1-2.0); Eosinophils % 13.5 % (0.1-12.0); Hematocrit 26.5 % (37.0-47.0); Lymphocytes # 1.2 K/mm3 (0.7-4.5); Lymphocytes % 22.8 % (10-50); Mean Corpuscular HGB Conc 30.9 g/dL (31.8-35.4); Mean Corpuscular Hemoglobin 26.5 pg (27.0-31.2); Mean Corpuscular Volume 85.6 fl (81-99); Mean Platelet Volume 9.4 fl (7.4-10.4); Monocytes % 4.7 % (1.7-9.3); Neutrophils % 58.6 % (37.0-80.0); Platelet Count 548 K/mm3 (142-424); Red Blood Count 3.09 M/mm3 (4.20-5.40); Red Cell Distribution Width 23.5 % (11.5-17.5); White Blood Count 5.1 K/mm3 (4.8-10.8)
[2021-08-12 07:43] LABS: Hemoglobin 8.2 g/dL (12.2-16.2); Potassium 2.9 mmoL/L (3.5-5.1)
[2021-08-12 08:00] VITALS: BP 100/51; PULSE 100; PULSE 70; RESP 16; TEMP 36.4; O2SAT 98
--- NOTE | 2021-08-12 09:27 | SW/DCPLANNER ---
A ORDER WAS OBTAINED FOR HOME HEALTH FOR THIS PATIENT.... PATIENT STATED SHE IS ALREADY SET UP WITH OUT PATIENT AND WISHES TO COME BACK TO THE HOSPITAL TO CONTINUE TREATMENT... I SPOKE WITH OT, BRENT AGUSTIN AND SHE SAID THEY SAW HER LAST WEEK AND SHE IS GOOD TO GO BACK HOME WITH HER FAMILY..PATIENT MAY DISCHARGE LATER TODAY...
--- NOTE | 2021-08-12 09:41 | HMH.OTEV ---
OT Inpatient Evaluation Rehab OT IP Evaluation Start: 08/11/21 17:37 Freq: ONCE Status: Complete Protocol: Document 08/12/21 09:28 SADIQ (Rec: 08/12/21 09:41 [facility] [id number]) Rehab OT IP Assessment Subjective History Pt oriented x 3 on arrival. Pt agreeable to engage in therapy evaluation. Pt was admitted after PCP office visit on 08/11/21 due to weakness and diarrhea. Pt has a past medical history of Deep Vein Thrombosis, Gastroesophageal Reflux Disease(GERD), Heart Murmur, Hyperlipidemia, Hypertension, Palpitations, Peripheral Artery Disease, Peripheral Vascular Disease, Renal Disease. Pt reports prior to being in the hosptial she was living with her daughter who is home with her 12/04. Pt explains she was able to dress herself independently using AE (sock aid). Pt did require assistance for bathing; she was independent with feeding. Pt was dependent upon family for IADLs such as cleaning, cooking, laundry, etc. Pt used a rolling walker during ambulation. Subjective I feel much better and I'm ready to go home. Pt resting in bed on arrival. Pt agreeable to engage in therapy evaluation. pt completed bed mobility with min assist to go from supine to sitting at eob. Pt complained of R leg weakness and pain. Pt was able to sit at eob with sba with good sitting balance. Pt was dependent on therapist to complete LB dressing to don socks. Pt stood from eob and engaged in functional mobility task of ~15 feet with rolling walker and cga. Pt sat down
--- NOTE | 2021-08-12 10:06 | HMH.PTEV ---
Physical Therapy Evaluation Rehab PT IP Evaluation Start: 08/11/21 17:37 Freq: ONCE Status: Active Protocol: Document 08/12/21 09:56 MARS (Rec: 08/12/21 10:06 MARS [id number]) Subjective/History History History This is the initial evaluation for Yoko Jerez. Pt is a 75 y/o female admitted to [facility] for nausea, diarrhea, dry heaves, abdominal pain, somnolence and tingling her in her hands and feet. Pt was on supplemental O2 upon arrival. Pt was being seen in outpatient PT before this medical episode. - note done by Juli Aguilar, SPT Subjective Subjective Pt states she was living at home with daughter before this medical episode. Pt states she used a walker to get around but she did need help with cooking, bathing, and other ADL's from daughter and niece. Pt reports a hx of falls in the past but not recently. Pt states she could use the bathroom independently before admission. Pt states her daughter works from home and provides 24/ supervision. Rehab PT IP Eval Objective Appearance Patient Behavior Appropriate,Cooperative Patient Orientation Place,Name,Birthday,Situation Difficulty following instructions none Speech Pattern Clear,Appropriate,Coherent Ambulation Patient Able to Ambulate Yes Ambulation Observation IP General Gait Pattern Observation Shuffling Step,Hips Posterior to JARRED Ambulation Distance (feet) 25 Ambulation Assistive Device Rolling Walker Ambulation Ability Supervision/Stand by Balance Ability to Arise Able, uses arms to help Sitting Balance Steady, safe Dynamic Sitting Balance Ability Good Dynamic Standing Balance Ability Fair Transfers Bed Transfer Ability Minimal x 2 (25% assist) Sit to Stand Bed Transfer Ability Minimal x 2 (25% assist) Rehab PT IP prob,goals,plan Problems Date of Evaluation: 08/12/21 PT IP Problems Bed Mobility,Transfers,Gait, Balance,Self care,Safety Rehab Potential Rehab Potential Fair Equipment Needs
--- NOTE | 2021-08-12 12:35 | HMH.PHAVTE ---
[facility] Pharmacy VTE Monitoring - Patient Demographics Admission date: 08/12/21 Report Date: 08/12/21 Time: 12:35 Allergies/Adverse Reactions: Patient Allergies prochlorperazine [PROCHLORPERAZINE] Allergy (Intermediate, Verified 08/07/21 14:17) HALLUCINATIONS oxycodone [OXYCODONE] Allergy (Unknown, Verified 08/07/21 14:17) HALLUCINATIONS ibuprofen [IBUPROFEN] Adverse Reaction (Unknown, Verified 08/07/21 14:17) PT HAS RENAL FAILURE Height: 1.63 m Weight: 71.668 kg Patient Problems: Current Active Problems Hypokalemia (Acute) Dehydration (Acute) Hypomagnesemia (Acute) Gastritis (Acute) Physical debility (Chronic) Bereavement reaction (Acute) Overweight (BMI 25.0-29.9) (Chronic) Lupus (Chronic) - VTE Risk Labs: VTE Related Lab Results Hgb 8.2 g/dL (12.2-16.2) L D 08/12/21 06:43 Hct 26.5 % (37.0-47.0) L 08/12/21 06:43 Plt Count 548 K/mm3 (142-424) H 08/12/21 06:43 BUN 6 mg/dl (7-17) L D 08/12/21 06:43 Creatinine 0.80 mg/dl (0.52-1.04) 08/12/21 06:43 Estimated Creat Clear 57 mL/min (50-200) 08/12/21 06:43 Was VTE Risk Assessment Performed: Yes VTE Risk Level: Moderate Risk Clinical Trial Participant: No - Prophylaxis VTE Prophylaxis Ordered?: Yes Types of VTE Prophylaxis: TEDS Knee High
--- NOTE | 2021-08-12 13:16 | HMH.DCSUM ---
General - General Admission date:: 08/11/21 Discharge date: 08/12/21 HPI HPI: 75 year old female with extensive PMH presented to outpatient clinic today with complaints of nausea, diarrhea, dry heaves, abdominal pain, somnolence and tingling her in her hands and feet. Has chronic, intermittent diarrhea but worse over the past 24-48 hours and associated with these other symptoms in the past 24 hours. She is having difficulty ambulating without feeling syncopal, has been dyspneic and unable to keep hydrated due to nausea and dry heaves. Due to her frailty, relative hypotension in the office and mild hypoxia she was admitted for IV hydration and additional evaluation. Hospital Course Hospital Course: Overall did well overnight. After admission, oxygen requirement responded promptly with improvement. No significant treatment administered. Labs concerning for mild dehydration. Was rehydrated overnight. Potassium low this morning on labs, repleted with IV and oral. Will make sure that she continues to have oral replacement as low potassium could be a culprit in her fatigue. Patient otherwise feeling better ready to go home. Physical therapy saw patient, recommend home health. Grief counselor saw patient, stable for going home. Will go home with family today and tomorrow we will move back into her own home where she will have family staying with her for the next few weeks. In this setting she is safe, medically stable for discharge. Follow-up closely our office in the coming 1 to 2 weeks. Objective Vital signs: Temp Pulse Resp BP Pulse Ox 97.5 F L 70 16 100/51 L 98 08/12/21 08:00 08/12/21 08:00 08/12/21 08:00 08/12/21 08:00 08/12/21 08:00 Narrative: - Constitutional chronically ill appearing, cooperative, Alert and oriented - *Routine HEENT Exam Head: Present: normocephalic Eye: Present: conjunctivae pink ENT: Present: mucous membranes dry - *Routine Neck Exam Present: supple. Absent: lymphadenopathy - *Routine Respiratory Exam Present: CTA bilaterally - *Routine Cardiovascular Exam Present: RRR - *Routine Abdominal Exam Present: soft, normoactive bowel sounds, tenderness (right side and epigastric). Absent: guarding, rigid - *Routine Extremities Exam Present: edema at baseline in BLE, pulses intact, joint swelling (hands). Absent: clubbing - *Routine Skin Exam Present: intact, warm, rash (right lower face/chin, hypopigmented) - *Routine Neurological Exam Present: alert, oriented X3, moving all extremities, normal tone, normal speech Results Labs on day of discharge: Labs from last 24 hours 08/12/21 08/12/21 08/12/21 06:43 06:43 06:43 WBC 5.1 RBC 3.09 L Hgb 8.2 L D Hct 26.5 L MCV 85.6 MCH 26.5 L MCHC 30.9 L RDW 23.5 H Plt Count 548 H MPV 9.4 Neut % (Auto) 58.6 Lymph % (Auto) 22.8 [place] % (Auto) 4.7 Eos % (Auto) 13.5 H Baso % (Auto) 0.4 Neut # (Auto) 3.0 Lymph # (Auto) 1.2 [place] # (Auto) 0.2 Eos # (Auto) 0.7 H Baso # (Auto) 0.0 Sodium 135 L Potassium 2.9 L* Chloride 99 Carbon Dioxide 28 Anion Gap 10.9 BUN 6 L D Creatinine 0.80 Estimated Creat Clear 57 Estimated GFR 70 Est GFR ( Amer) 85 Glucose 90 Calcium 8.8 Magnesium 2.0 D Total Bilirubin AST ALT Alkaline Phosphatase Total Protein Albumin Globulin Albumin/Globulin Ratio Amylase Lipase SARS-CoV-2 (PCR) Influenza A Untype (PCR) Influenza Type B (PCR) 08/11/21 08/11/21 08/11/21 12:35 12:35 12:10 WBC RBC Hgb Hct MCV MCH MCHC RDW Plt Count MPV Neut % (Auto) Lymph % (Auto) [place] % (Auto) Eos % (Auto) Baso % (Auto) Neut # (Auto) Lymph # (Auto) [place] # (Auto) Eos # (Auto) Baso # (Auto) Sodium 134 L Potassium 3.4 L Chloride 98 Carbon Dioxide 27 Anion Gap 1
--- NOTE | 2021-08-12 13:35 | PC.NURSE ---
Patient ready for discharge to home
== END 2021-08-12 14:40 | disposition home or self-care (01) ==
PROVIDERS: Nurse Practitioner Family; Admitting Provider Internal Medicine Adolescent Medicine; PCP Internal Medicine Adolescent Medicine; Visit Provider Internal Medicine Adolescent Medicine
DX: E86.0 Dehydration (principal); Z20.822 Contact with and (suspected) exposure to COVID-19; Z63.4 Disappearance and death of family member; L93.0 Discoid lupus erythematosus; F43.20 Adjustment disorder, unspecified; Z79.899 Other long term (current) drug therapy; Z88.8 Allergy status to other drugs, medicaments and biological substances
CPT/HCPCS: G0378; G0379; 36415; 71046; 74176; 80048; 80053; 82150; 83690; 83735; 85025; 93005; 97162; 97166; 97530; 97535; C9803; U0003; U0005

== ENCOUNTER → 2021-08-18 10:55 | Outpatient (CLI) | payer MEDICARE, BC, SELFPAY ==
--- NOTE | 2021-08-18 10:58 | MM_ITS ---
PROCEDURE INFORMATION: Exam: MG Bilateral Screening 3D Mammography Exam date and time: 08/18/2021 10:58 AM Age: 75 years old Clinical indication: Encounter for screening mammogram for malignant neoplasm of breast TECHNIQUE: Imaging protocol: Bilateral screening tomosynthesis and 2D mammography including computer-aided detection (CAD) when performed. COMPARISON: 1. MG MM DIG MAMM BI DX W/CAD 01/03/2020 1:53 PM 2. MG MM DIG MAMM BI DX W/CAD 05/12/2019 1:53 PM FINDINGS: MAMMOGRAPHY: Breast composition: The breast tissue is composed of scattered areas of fibroglandular density. Mass: None. Architectural distortion: None. Calcifications: No suspicious calcifications. Asymmetric density: None. Skin thickening: None. Axillary adenopathy: None. IMPRESSION: No mammographic evidence of malignancy. Annual screening is recommended unless otherwise clinically indicated. ASSESSMENT: BI-RADS Category 1: Negative
== END ==
PROVIDERS: PCP Internal Medicine Adolescent Medicine; Visit Provider Internal Medicine Adolescent Medicine
DX: Z12.31 Encounter for screening mammogram for malignant neoplasm of breast (principal)
CPT/HCPCS: 77063; 77067

== ENCOUNTER 2021-08-19 19:38 | Observation (INO) | payer MEDICARE, BC, SELFPAY ==
[2021-08-19 19:39] VITALS: BP 135/62; PULSE 72; RESP 18; TEMP 37.1; O2SAT 98; BMI 26.7
--- NOTE | 2021-08-19 19:46 | ECG_ITS ---
APPROVED REPORT Exam: Resting ECG HR:66 bpm ECG Measurements Heart Rate 66 AXES SC 140 P 51 QRSd 78 QRS 54 QT 388 T -64 QTc 406 Conclusion Normal sinus rhythm Septal infarct, age undetermined T wave abnormality, consider inferolateral ischemia Abnormal ECG Electronically signed by : Miller Hazel MD 08/21/2021 20:27:23
[2021-08-19 20:06] LABS: Chloride 94 mmol/L (98-107); Sodium 129 mmol/L (136-145)
[2021-08-19 20:07] LABS: Potassium 3.1 mmoL/L (3.5-5.1)
[2021-08-19 20:09] LABS: Albumin Level 3.5 g/dl (3.5-5.0); Albumin/Globulin Ratio 1.3 (1.1-1.8); Alkaline Phosphatase 138 U/L (38-126); Anion Gap 11.1 mEq/L (5-15); Aspartate Amino Transferase 15 U/L (14-36); Bilirubin,Total 0.3 mg/dl (0.2-1.3); Blood Urea Nitrogen 8 mg/dl (7-17); Carbon Dioxide 27 mmol/L (22.0-30.0); Creatinine Clearance Estimated 56 mL/min (50-200); Estimated Glomerular Filt Rate 61 ml/min (>60); GFR (African American) 74 ML/MIN (>60); Globulin 2.8 g/dL (1.3-3.2); Total Protein,Serum 6.3 g/dl (6.3-8.2)
[2021-08-19 20:10] LABS: Basophils % 0.1 % (0.1-2.0); Eosinophils # 0.1 K/mm3 (0.0-0.4); Eosinophils % 3.3 % (0.1-12.0); Glucose 117 mg/dl (74-100); Hematocrit 22.6 % (37.0-47.0); Hemoglobin 7.3 g/dL (12.2-16.2); Lymphocytes # 0.9 K/mm3 (0.7-4.5); Lymphocytes % 25.5 % (10-50); Mean Corpuscular HGB Conc 32.2 g/dL (31.8-35.4); Mean Corpuscular Hemoglobin 26.5 pg (27.0-31.2); Mean Corpuscular Volume 82.3 fl (81-99); Mean Platelet Volume 10.5 fl (7.4-10.4); Monocytes # 0.3 K/mm3 (0.1-1.0); Monocytes % 6.9 % (1.7-9.3); Neutrophils # 2.4 K/mm3 (1.8-7.8); Neutrophils % 64.2 % (37.0-80.0); Platelet Count 451 K/mm3 (142-424); Red Blood Count 2.74 M/mm3 (4.20-5.40); Red Cell Distribution Width 23.6 % (11.5-17.5); White Blood Count 3.7 K/mm3 (4.8-10.8)
[2021-08-19 20:15] LABS: C-Reactive Protein 50.4 mg/L (0-4)
[2021-08-19 20:33] LABS: Alanine Aminotransferase < 4 U/L (12-78); Troponin I < 0.01 ng/ml (0.00-0.034)
[2021-08-19 20:38] LABS: Erythrocyte Sedimentation Rate 135 mm/hr (0-30)
[2021-08-19 21:35] LABS: Procalcitonin 0.121 ng/mL (0.0-2.0)
[2021-08-19 22:00] VITALS: BP 142/64; RESP 14; O2SAT 100
--- NOTE | 2021-08-19 22:19 | HMH.EDWEAK ---
ED Disposition Clinical Impression: Elevated erythrocyte sedimentation rate UTI (urinary tract infection) Qualifiers: Urinary tract infection type: site unspecified Hematuria presence: without hematuria Qualified Code(s): N39.0 - Urinary tract infection, site not specified Anemia Qualifiers: Anemia type: unspecified type Qualified Code(s): D64.9 - Anemia, unspecified Disposition: Admitted as Observation Condition on Discharge: Good - Critical Care Critical Care Time: No Attestation: On 08/19/21, the high probability of a clinically significant, sudden or life threatening deterioration of the following system(s) required my full and direct attention, intervention and personal management. The time I documented below is in addition to time spent performing reported procedures but includes the following listed in this critical care notation. Medical Decision Making - Medical Records Medical records reviewed: Yes: I reviewed the patient's medical records. - Cecil Inquiry Pt receiving controlled substance: No Vital Signs: 08/19/21 19:39 08/19/21 22:00 Temperature 98.7 F Temperature Source Oral Pulse Rate [Apical] 72 Respiratory Rate 18 14 Blood Pressure 142/64 H Blood Pressure [Right Arm] 135/62 Blood Pressure Mean [Right Arm] 86 Blood Pressure Source [Right Arm] Automatic Cuff Blood Pressure Position [Right Arm] Sitting 02 Sat by Pulse Oximetry 98 100 Oxygen Delivery Method Room Air Room Air - Lab Data Lab results reviewed: Yes: I reviewed the patient's lab results. Lab Results 08/19/21 19:40: WBC 3.7 L, RBC 2.74 L, Hgb 7.3 L, Hct 22.6 L, MCV 82.3, MCH 26.5 L, MCHC 32.2, RDW 23.6 H, Plt Count 451 H, MPV 10.5 H, Neut % (Auto) 64.2, Lymph % (Auto) 25.5, [place] % (Auto) 6.9, Eos % (Auto) 3.3, Baso % (Auto) 0.1, Neut # (Auto) 2.4, Lymph # (Auto) 0.9, [place] # (Auto) 0.3, Eos # (Auto) 0.1, Baso # (Auto) 0.0, ESR 135 H 08/19/21 19:40: Sodium 129 L, Potassium 3.1 L, Chloride 94 L, Carbon Dioxide 27, Anion Gap 11.1, BUN 8, Creatinine 0.90, Estimated Creat Clear 56, Estimated GFR 61, Est GFR ( Amer) 74, Glucose 117 H, Calcium 9.0, Total Bilirubin 0.3, AST 15, ALT < 4 L, Alkaline Phosphatase 138 H, Troponin I < 0.01, C-Reactive Protein 50.4 H, Total Protein 6.3, Albumin 3.5, Globulin 2.8, Albumin/Globulin Ratio 1.3, Procalcitonin 0.121 08/19/21 19:40: Magnesium 1.7 08/19/21 19:40: Lipase 81 08/19/21 22:17: Urine Color Yellow, Urine Appearance Sl cloudy, Urine pH 6.0, Ur Specific [place] 1.010, Urine Protein Negative, Urine Glucose (UA) Negative, Urine Ketones Negative, Urine Blood Negative, Urine Nitrate Negative, Urine Bilirubin Negative, Urine Urobilinogen 0.2, Ur Leukocyte Esterase 1+ A, Urine RBC Occasional, Urine WBC 10-20, Ur Squamous Epith Cells Occasional, Urine Bacteria 4+ 08/19/21 23:30: Troponin I < 0.01 08/19/21 23:30: Lactate 1.0 Result diagrams: 08/19/21 19:40 08/19/21 19:40 Orders (Tests/Meds): ED MEDICATIONS Generic Name Dose Route Start Last Admin Trade Name Freq PRN Reason Stop Dose Admin Ceftriaxone Sodium 1 gm/ 50 mls @ 100 mls/hr 08/19/21 23:45 08/19/21 23:57 Sodium Chloride IV 09/02/21 23:44 100 mls/hr Q24H HERBERT Administration Discontinued Medications Generic Name Dose Route Start Last Admin Trade Name Freq PRN Reason Stop Dose Admin Sodium Chloride 1,000 mls @ 999 mls/hr 08/19/21 20:00 08/19/21 20:00 Sod Chlor 0.9% 1000ml Bag IV 08/19/21 21:00 999 mls/hr .Q1H1M HERBERT Administration ORDERS Category Date Time Status Rapid PCR Covid and Flu A/B Stat Lab 08/19/21 23:50 Received Troponin I Q3H Lab 08/20/21 02:15 Ordered Blood Culture Stat Micro 08/19/21 23:30 Received Urine Culture Stat Micro 08/19/21 22:17 Received - ECG Data Tracing #1 Normal Sinus Rhythm: Yes Ischemic changes: non-specific ST-T wave changes Medical Decision Narrative: has elevated esr and has uti with weakness and dec po intake - has anemia also - will a
[2021-08-19 22:27] LABS: Microscopic, Urine URINE MICROSCOPIC (MICROSCOPIC)
[2021-08-19 22:31] LABS: Appearance,Urine SL CLOUDY (Clear); Bilirubin,Urine Negative (Negative); Blood, Urine Negative (Negative); Color,Urine YELLOW (Yellow); Glucose,Urine (UA) Negative (Negative); Ketones,Urine Negative (Negative); Leukocyte Esterase,Urine 1+ (Negative); Nitrate,Urine Negative (Negative); Protein,Urine Negative (Negative); Urobilinogen,Urine 0.2 EU/dl (0.2)
[2021-08-19 22:34] LABS: Lipase 81 U/L (23-300); Magnesium 1.7 mg/dl (1.6-2.3)
[2021-08-19 23:02] LABS: Bacteria,Urine 4+ /lpf; RBC,Urine Occasional #/hpf (0-3); Squamous Epithelial Cell,Urine Occasional #/hpf (0-5)
[2021-08-19 23:53] LABS: Coronavirus 19, PCR Not Detected (NotDetected); Influenza A, PCR Not Detected (NotDetected); Influenza B, PCR Not Detected (NotDetected)
[2021-08-20] VITALS (27 sets, daily range): BP systolic 108–145; BP diastolic 45–95; PULSE 72–100; RESP 14–19; TEMP 36.4–36.9; O2SAT 92–99; BMI 26.3
[2021-08-20 00:04] LABS: Troponin I < 0.01 ng/ml (0.00-0.034)
--- NOTE | 2021-08-20 01:45 | PC.NURSE ---
PT ARRIVED TO FLOOR VIA W/C FROM ED W/STAFF @ 3615
[2021-08-20 03:02] LABS: Troponin I < 0.01 ng/ml (0.00-0.034)
[2021-08-20 07:32] LABS: Basophils % 0.2 % (0.1-2.0); Eosinophils # 0.2 K/mm3 (0.0-0.4); Hematocrit 21.2 % (37.0-47.0); Lymphocytes # 0.9 K/mm3 (0.7-4.5); Lymphocytes % 23.5 % (10-50); Mean Corpuscular HGB Conc 31.5 g/dL (31.8-35.4); Mean Corpuscular Volume 82.3 fl (81-99); Monocytes # 0.3 K/mm3 (0.1-1.0); Monocytes % 8.5 % (1.7-9.3); Neutrophils # 2.4 K/mm3 (1.8-7.8); Neutrophils % 63.9 % (37.0-80.0); Platelet Count 366 K/mm3 (142-424); Red Blood Count 2.57 M/mm3 (4.20-5.40); Red Cell Distribution Width 23.7 % (11.5-17.5); White Blood Count 3.7 K/mm3 (4.8-10.8)
--- NOTE | 2021-08-20 07:39 | P.CONPHA_ITS ---
[facility] Pharmacy VTE Monitoring - Patient Demographics Admission date: 08/20/21 Report Date: 08/20/21 Time: 07:40 Allergies/Adverse Reactions: Patient Allergies prochlorperazine [PROCHLORPERAZINE] Allergy (Intermediate, Verified 08/07/21 14:17) HALLUCINATIONS oxycodone [OXYCODONE] Allergy (Unknown, Verified 08/07/21 14:17) HALLUCINATIONS ibuprofen [IBUPROFEN] Adverse Reaction (Unknown, Verified 08/07/21 14:17) PT HAS RENAL FAILURE Height: 1.63 m Weight: 69.967 kg Patient Problems: Current Active Problems Elevated erythrocyte sedimentation rate (Acute) Anemia (Acute) UTI (urinary tract infection) (Acute) - VTE Risk Labs: VTE Related Lab Results Hgb 7.3 g/dL (12.2-16.2) L 08/19/21 19:40 Hct 22.6 % (37.0-47.0) L 08/19/21 19:40 Plt Count 451 K/mm3 (142-424) H 08/19/21 19:40 BUN 8 mg/dl (7-17) 08/19/21 19:40 Creatinine 0.90 mg/dl (0.52-1.04) 08/19/21 19:40 Estimated Creat Clear 56 mL/min (50-200) 08/19/21 19:40 Was VTE Risk Assessment Performed: Yes VTE Risk Level: Moderate Risk Clinical Trial Participant: No - Prophylaxis VTE Prophylaxis Ordered?: Yes Types of VTE Prophylaxis: TEDS Knee High Location of Applied Device: Bilateral Lower Extremeties
[2021-08-20 07:49] LABS: Hemoglobin 6.7 g/dL (12.2-16.2)
--- NOTE | 2021-08-20 08:21 | HMH.HP ---
*Admission Date: 08/20/21 *Chief complaint: Weakness and fatigue *History of present illness: 75-year-old -Bangladeshi female with history of lupus, chronically elevated sed rate, chronic joint pain, chronic anemia from her multiple disease processes, chronic back pain status post multiple back surgeries in the past who has had a lot of social upheaval with the sudden of her about 3 or 4 weeks ago. She been at home during the day by herself with good attention from her children, but has become progressively more immobile because of pain and fatigue. Significant confusion and fatigue last night, brought to the ER. Found to be anemic, found to have evidence of UTI, found to be hyponatremic and admitted to hospital for further evaluation. [facility] History I have reviewed the patient's past medical history: Yes 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: Reports:: Deep Vein Thrombosis, Gastroesophageal Reflux Disease(GERD), Heart Murmur, Hyperlipidemia, Hypertension, Palpitations, Peripheral Artery Disease, Peripheral Vascular Disease, Renal Disease Denies:: Asthma, Cancer, Chronic Obstructive Pulmonary Disease (COPD), Cerebrovascular Accident, Diabetes Mellitus Type 1, Diabetes Mellitus Type 2, MRSA, Myocardial Infarction *Have you ever received a pneumonia vaccine?: Yes *Have you received a flu vaccine this season?: Yes Other 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: Reports: Anemia, Arthritis, Glaucoma, Sinus Problems, Thyroid Disease, Other (Lupus/rheumatoid arthritis/chronic anemia). Denies: Hypothyroidism Laterality Cases: Bilateral: Breast Biopsy Other Surgeries: Yes: Colonoscopy, Colostomy, Tubal Ligation, Other (back surgery) Amputation: No Fractures: No - *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 Smoking Status: Former smoker Tobacco Type: cigarettes Alcohol Intake: never Alcohol Intake Frequency:: other Substance Use Type: denies use *Occupational Status:: retired Household Members: children *Travel in the last 8 weeks: None Family Hx:: Anemia, Cancer, Coronary Artery Disease, Heart Attack, Hyperlipidemia, Hypertension, Kidney Disease, Tuberculosis, Substance abuse, Alcoholism, Mental illness Review of Systems - Review of Systems Review of systems:: pertinent systems reviewed and negative unless documented below - *Neurologic Reports weakness, Denies behavioral changes, Denies localized weakness, Denies headache(s), Denies seizure-like activity Meds Home Medications Medication Instructions Recorded Confirmed Type chlorthalidone 25 mg tablet 25 mg PO DAILY tab 11/10/17 08/20/21 History donepezil 10 mg tablet 10 mg PO HS 11/10/17 08/20/21 History dorzolamide 22.3 mg-timolol 6.8 1 drp OPHTHALMIC BID 11/10/17 08/20/21 History mg/mL eye drops fluticasone propionate 50 2 spry INTRANASAL DAILY 11/10/17 08/20/21 History mcg/actuation nasal spray,suspension pantoprazole 40 mg tablet,delayed 40 mg PO DAILY 11/10/17 08/20/21 History release simvastatin 20 mg tablet 20 mg PO HS 11/10/17 08/20/21 History methimazole 5 mg tablet 5 mg PO DAILY 90 Days tab 11/22/17 08/20/21 History nifedipine 60 mg tablet,extended 60 mg PO DAILY 11/22/17 08/20/21 History release ferrous gluconate 236 mg (27 mg 236 mg PO DAILY tab 08/03/18 08/20/21 History iron) tablet ascorbate calcium (vitamin C) 500 500 mg PO DAILY 03/31/19 08/20/21 History mg tablet aspirin 81 mg tablet,delayed 81 mg PO DAILY tab 03/31/19 08/20/21 History release bupropion HCl 100 mg tablet 100 mg PO BID tab 03/31/19 08/20/21 History cetirizine 10 mg capsule 10 mg PO DAILY cap 03/31/19 08/20/21 History cholecalciferol (vitamin D3) 25 1,000 unit PO DAILY 03/31/19 08/20/21 History mcg (1,000 unit) capsule leflunomide 20 mg tablet 20 mg PO DAILY tab 03/31/19 08/20/21 History magnesium 250 mg tablet 250 mg PO DAILY 03/31/19 08/20/21 History primidone 250 mg tablet 500 mg PO HS tab 03/31/19 08/20/21 History Losartan Potassium [Cozaar 25mg 25 mg PO DAILY 08/28/19 08/20/21 History Tablets] Travoprost [Trava
[2021-08-20 08:31] LABS: Chloride 98 mmol/L (98-107); Sodium 130 mmol/L (136-145)
[2021-08-20 08:33] LABS: Blood Urea Nitrogen 7 mg/dl (7-17); Creatinine Clearance Estimated 55 mL/min (50-200); Estimated Glomerular Filt Rate 70 ml/min (>60); GFR (African American) 85 ML/MIN (>60)
[2021-08-20 08:34] LABS: Anion Gap 8.9 mEq/L (5-15); Calcium 8.5 mg/dl (8.4-10.2); Carbon Dioxide 26 mmol/L (22.0-30.0); Glucose 90 mg/dl (74-100)
[2021-08-20 09:10] LABS: Potassium 2.9 mmoL/L (3.5-5.1)
--- NOTE | 2021-08-20 09:25 | HMH.OTEV ---
OT Inpatient Evaluation Rehab OT IP Evaluation Start: 08/20/21 08:16 Freq: ONCE Status: Complete Protocol: Document 08/20/21 09:13 SADIQ (Rec: 08/20/21 09:24 [facility] [id number]) Rehab OT IP Assessment Subjective History Pt oriented x 3 on arrival. Pt agreeable to engage in therapy evaluation. Pt was admitted via ED on 08/20/21 due to weakness and UTI. Therapist reviewed the following information provided by physician's history and physical report: 75-year-old -Martiniquais female with history of lupus, chronically elevated sed rate, chronic joint pain, chronic anemia from her multiple disease processes, chronic back pain status post multiple back surgeries in the past who has had a lot of social upheaval with the sudden of her about 3 or 4 weeks ago. She been at home during the day by herself with good attention from her children, but has become progressively more immobile because of pain and fatigue. Significant confusion and fatigue last night, brought to the ER. Found to be anemic, found to have evidence of UTI, found to be hyponatremic and admitted to hospital for further evaluation. Pt has a past medical history of Deep Vein Thrombosis, Gastroesophageal Reflux Disease(GERD), Heart Murmur, Hyperlipidemia, Hypertension, Palpitations, Peripheral Artery Disease, Peripheral Vascular Disease, Renal Disease. Prior to this hospitalization she was living with her daughter. Pt was dependent
--- NOTE | 2021-08-20 10:26 | HMH.PHAINT ---
Verified home medication list with [facility] pharmacy and office visit (Miller Hazel MD/Marilou Stewart APRN)
--- NOTE | 2021-08-20 11:56 | SW/DCPLANNER ---
Addendum entered by Estrella Fitzgerald 08/22/21 11:21: PATIENT HAS BEEN ACCEPTED AND WILL DISCHARGE THERE TODAY.. I HAVE HAD SEVERAL CALLS FROM FAMILY NOT UNDERSTANDING WHY SHE CAN'T USE HER MCR..I ATTEMPTED TO EXPLAIN SHE IS OBSERVATION AND DID NOT MEET CRITERIA FOR INPATIENT STATUS..I REFERRED THE DAUGHTER TO [facility] TO HAVE THE STUDENT MINISTRIES DIRECTOR TO EXPLAIN PAYMENT STATUS.. Addendum entered by Estrella Fitzgerald 08/21/21 14:29: SENT PACKET TO [facility] FOR PATIENT TO DISCHARGE THERE IN THE AM IF MEDICALLY READY TO DO SO AND ACCEPTED... WAITING TO HEAR BACK FROM STUDENT MINISTRIES DIRECTOR.. Addendum entered by Estrella Fitzgerald 08/21/21 10:09: CALLED THE SON THIS MORNING AND SPOKE WITH HIM ABOUT HIS MOTHER AND SHE IS ONLY OBSERVATION AND IF SHE WOULD GO TO A USP SHE WOULD HAVE TO EITHER PRIVATE PAY OR GO MEDICAID PENDING...I DID MAKE CONTACT WITH [facility] AND THEY DO HAVE BEDS AND ARE INTERESTED IN HER.. HER SON STATED SHE WOULD HAVE TO GO IN MEDICAID PENDING AND HE STATED SHE STILL HAS A MORTGAGE... I AM GOING TO SPEAK WITH PATIENT AND OFFER HER A BED AT [facility] AND IF SOMETHING CHANGES WITH HER STATUS WILL LET HER KNOW THAT TOO.. Original Note: WENT IN TO SEE PATIENT TODAY REGARDING DISCHARGE PLANNING: PATIENTS SON ASKED FOR DR MIDDLETON TO CALL HIM AND HE DID, THEY DISCUSSED HER POSSIBLY GOING TO A SKILLED REHAB WHEN SHE IS READY TO DISCHARGE FROM THE HOSPITAL..AT THIS TIME PATIENT IS ONLY OBSERVATION AND THIS WILL NOT PAY FOR SKILLED CARE... WILL FOLLOW HER TO SEE IF THINGS CHANGE WITH HER..
--- NOTE | 2021-08-20 14:52 | DIET.NUTRFU ---
Patient has inadequate intake, recommend liberalizing diet to regular until appetite improves. Started ensure clear TID, patient does not like standard ensure. Resident is at risk for malnutrition d/t lack of intake. May benefit from psychologist eval for possible new depression effecting her appetite. Recently lost . If remeron appropriate it may increase appetite also.
--- NOTE | 2021-08-20 18:35 | PC.NURSE ---
Pt has been pleasant and cooperative this shift. A&O X4. Pt complains of BLE pain and requests Gabapentin. Dr. Hazel notified. Pt is currently on room air with sats. >90%. Lungs CTA. 2+ pitting edema noted to BLE. Skin is C/D/I. Pt ambulates with stand-by assistance. Pt uses the BSC to void clear, yellow urine without issue. No BM thus far this shift. Pt received 2 units of PRBC's today and post-H&H is to be drawn at 1905. Appetite is fair and pt eats about 50% of all meals. 20 G peripheral IV in the LT forearm is patent and infusing NS @ 100 ML/HR. VSS. Call light within reach. Will continue to monitor.
[2021-08-20 19:33] LABS: Hematocrit 32.7 % (37.0-47.0)
[2021-08-20 19:40] LABS: Hemoglobin 11.5 g/dL (12.2-16.2)
[2021-08-21 04:00] VITALS: BP 123/68; PULSE 80; RESP 17; TEMP 36.9; O2SAT 99
--- NOTE | 2021-08-21 04:15 | PC.NURSE ---
No acute changes thus far in shift. Pt remains on RA with no c/o of SOA. Pt has voiced no c/o of pain. Pt is a assist x1 to [facility] No BM thus far in shift, pt reports she is passing gas t/o the night. Call light within reach.
[2021-08-21 05:12] VITALS: BMI 27.8
[2021-08-21 07:58] LABS: Basophils % 0.3 % (0.1-2.0); Eosinophils # 0.2 K/mm3 (0.0-0.4); Eosinophils % 3.9 % (0.1-12.0); Hematocrit 30.1 % (37.0-47.0); Lymphocytes # 0.9 K/mm3 (0.7-4.5); Lymphocytes % 20.4 % (10-50); Mean Corpuscular HGB Conc 33.9 g/dL (31.8-35.4); Mean Corpuscular Hemoglobin 27.5 pg (27.0-31.2); Mean Corpuscular Volume 81.1 fl (81-99); Mean Platelet Volume 10.3 fl (7.4-10.4); Monocytes # 0.3 K/mm3 (0.1-1.0); Monocytes % 7.1 % (1.7-9.3); Neutrophils % 68.2 % (37.0-80.0); Platelet Count 338 K/mm3 (142-424); Red Blood Count 3.72 M/mm3 (4.20-5.40); Red Cell Distribution Width 20.6 % (11.5-17.5); White Blood Count 4.4 K/mm3 (4.8-10.8)
[2021-08-21 08:00] VITALS: BP 144/75; PULSE 78; RESP 17; TEMP 36.7; O2SAT 98
[2021-08-21 08:05] LABS: Hemoglobin 10.2 g/dL (12.2-16.2)
--- NOTE | 2021-08-21 08:37 | CT_ITS ---
PROCEDURE INFORMATION: Exam: CT Abdomen And Pelvis Without And With Contrast Exam date and time: 08/21/2021 8:37 AM Age: 75 years old Clinical indication: Abdominal pain; Generalized; Patient HX: Abd pain, nausea, vomiting TECHNIQUE: Imaging protocol: Computed tomography of the abdomen and pelvis without and with contrast. Radiation optimization: All CT scans at this facility use at least one of these dose optimization techniques: automated exposure control; mA and/or kV adjustment per patient size (includes targeted exams where dose is matched to clinical indication); or iterative reconstruction. Contrast material: ISOVUE 370; Contrast volume: 75 ml; Contrast route: INTRAVENOUS (IV); COMPARISON: CT ABDOMEN PELVIS WO CON 08/11/2021 2:35 PM FINDINGS: Lungs: Bilateral lower lobe atelectasis. Pleural spaces: There are new small bilateral pleural effusions. Liver: Normal. No mass. Gallbladder and bile ducts: Normal. No calcified stones. No ductal dilation. Pancreas: Normal. No ductal dilation. Spleen: Normal. No splenomegaly. Adrenal glands: Normal. No mass. Kidneys and ureters: Normal. No hydronephrosis. Stomach and bowel: Unremarkable. No obstruction. No mucosal thickening. Appendix: No evidence of appendicitis. Intraperitoneal space: Trace free fluid in the pelvis, nonspecific. Vasculature: Heavy burden of atherosclerotic plaque in the abdominal aorta and branch vessels. No aneurysm. Lymph nodes: Unremarkable. No enlarged lymph nodes. Urinary bladder: Unremarkable as visualized. Reproductive: Unremarkable as visualized. Bones/joints: Changes of posterior dian and pedicle screw fixation spanning T10 through S1 with bilateral sacroiliac screws. There is again advanced degenerative disc disease at T9-T10 with a compression deformity/remodeling involving the superior endplate of T10. Similar mild lucency about the right T10 pedicle screw as well as the right sacroiliac screw. Soft tissues: Anasarca. IMPRESSION: 1. No acute findings in the abdomen or pelvis. 2. There are new small bilateral pleural effusions.
--- NOTE | 2021-08-21 08:38 | HMH.ACPN2 ---
Internal Medicine - PN: Subj *Date: 08/21/21 *Time: 08:38 Interval history: Patient had some vomiting this morning, complains of upper epigastric pain. Still remains very weak. PT/OT evaluation reviewed. Exam Vital signs and Labs for Last 24 Hours: Temp Pulse Resp BP Pulse Ox 98.0 F 78 17 144/75 H 98 08/21/21 08:00 08/21/21 08:00 08/21/21 08:00 08/21/21 08:00 08/21/21 08:00 Laboratory Results - last 24 hr 08/20/21 07:09: Sodium 130 L, Potassium 2.9 L*, Chloride 98, Carbon Dioxide 26, Anion Gap 8.9, BUN 7, Creatinine 0.80, Estimated Creat Clear 55, Estimated GFR 70, Est GFR ( Amer) 85, Glucose 90 D, Calcium 8.5 08/20/21 08:55: Blood Type O Positive, Antibody Screen Negative, Crossmatch (AHG) See Detail 08/20/21 19:05: Hgb 11.5 L D, Hct 32.7 L 08/21/21 07:50: WBC 4.4 L, RBC 3.72 L D, Hgb 10.2 L D, Hct 30.1 L, MCV 81.1, MCH 27.5, MCHC 33.9, RDW 20.6 H, Plt Count 338, MPV 10.3, Neut % (Auto) 68.2, Lymph % (Auto) 20.4, [place] % (Auto) 7.1, Eos % (Auto) 3.9, Baso % (Auto) 0.3, Neut # (Auto) 3.0, Lymph # (Auto) 0.9, [place] # (Auto) 0.3, Eos # (Auto) 0.2, Baso # (Auto) 0.0 I & O for Last 24 hours: Intake & Output 08/18/21 08/19/21 08/20/21 08/21/21 11:59 11:59 11:59 11:59 Intake Total 360 / 360 1600 / 1600 Output Total 350 / 350 Balance 360 / 360 1250 / 1250 Weight 154 lb 4 oz 163 lb 1.6 oz Microbiology Reports for the Last 24 Hours: Microbiology 08/19/21 22:17 Urine,Clean Catch Urine Culture - Preliminary NO GROWTH AFTER 24 HOURS Narrative: Patient is pleasant, alert. Lungs have good air movement, heart rate regular with occasional ectopic beats. Upper epigastric area is tender which is new from yesterday's exam, some guarding and pain with both upper and lower quadrants on the left side tender. No bruising. Abdomen is soft and bowel sounds are present. Extremities have baseline edema and joint changes as previously noted Assessment and Plan (1) Hyponatremia Status: Acute Category: Medical Code(s): E87.1 - Hypo-osmolality and hyponatremia (2) Anemia, chronic disease Status: Acute Category: Medical Code(s): D63.8 - Anemia in other chronic diseases classified elsewhere (3) Anemia Status: Acute Qualifiers: Anemia type: unspecified type Qualified Code(s): D64.9 - Anemia, unspecified Category: Medical Code(s): D64.9 - Anemia, unspecified (4) Elevated erythrocyte sedimentation rate Status: Acute Category: Medical Code(s): R70.0 - Elevated erythrocyte sedimentation rate (5) UTI (urinary tract infection) Status: Acute Qualifiers: Urinary tract infection type: site unspecified Hematuria presence: without hematuria Qualified Code(s): N39.0 - Urinary tract infection, site not specified Category: Medical Code(s): N39.0 - Urinary tract infection, site not specified (6) Abdominal pain Status: Acute Qualifiers: Abdominal location: epigastric Qualified Code(s): R10.13 - Epigastric pain Category: Medical Code(s): R10.9 - Unspecified abdominal pain - Assessment and plan all Dx Assessment and Plan for all problems:: Abdominal pain seems fairly intense. Given her exam changes we will CT abdomen and pelvis. Phenergan for nausea. Continue current medications and antibiotics. Patient is agreeable to look into the [facility] for a Medicaid pending bed. Social work will investigate this.
[2021-08-21 09:04] LABS: Chloride 98 mmol/L (98-107); Sodium 128 mmol/L (136-145)
[2021-08-21 09:06] LABS: Potassium 3.2 mmoL/L (3.5-5.1)
[2021-08-21 09:07] LABS: Albumin/Globulin Ratio 1.2 (1.1-1.8); Alkaline Phosphatase 112 U/L (38-126); Anion Gap 10.2 mEq/L (5-15); Aspartate Amino Transferase 20 U/L (14-36); Bilirubin,Total 0.8 mg/dl (0.2-1.3); Blood Urea Nitrogen 5 mg/dl (7-17); Calcium 8.1 mg/dl (8.4-10.2); Carbon Dioxide 23 mmol/L (22.0-30.0); Creatinine Clearance Estimated 59 mL/min (50-200); Estimated Glomerular Filt Rate 98 ml/min (>60); GFR (African American) 119 ML/MIN (>60); Globulin 2.6 g/dL (1.3-3.2); Glucose 94 mg/dl (74-100); Total Protein,Serum 5.6 g/dl (6.3-8.2)
[2021-08-21 09:08] LABS: Alanine Aminotransferase 4 U/L (12-78)
--- NOTE | 2021-08-21 14:47 | PC.NURSE ---
PT IS SITTING UP IN THE CHAIR. ALERT AND ORIENTED X4. PT IS A 1 ASSIST TO GET OOB AND UP FROM THE CHAIR. VERY WEAK/UNSTEADY. PT WAS UNABLE TO TOLERATE THE ORAL CONTRAST THIS MORNING. PT WAS ABLE TO TOLERATE JELLO AND SOME BROTH FROM [employer]. 3+ PITTING EDEMA NOTED TO BLE. LUNG SOUNDS CLEAR. ABDOMEN SOFT/TENDER WITH PALPATION. PT IS NOT HAPPY ABOUT HAVING TO GO TO THE [facility] HOWEVER DOES UNDERSTAND THAT IT IS NECESSARY. WILL CONTINUE TO MONITOR.
[2021-08-21 15:26] VITALS: BP 118/58; PULSE 66; RESP 18; TEMP 37.1; O2SAT 97
[2021-08-21 20:00] VITALS: BP 126/68; PULSE 64; RESP 18; TEMP 36.7; O2SAT 94
[2021-08-22 04:00] VITALS: BP 136/84; PULSE 86; RESP 17; TEMP 36.9; O2SAT 94
--- NOTE | 2021-08-22 04:13 | PC.NURSE ---
Pt is A/O x4. Pt was restless t/o the night. Pt c/o of her neuropathy in feet and nausea x1 thus far in shift, see MAR. Pt had x3 BM's this shift. Pt is very weak and unsteady when ambulating to BSC X2 assist. Call gonzalez within reach.
[2021-08-22 04:49] VITALS: BMI 27.8
[2021-08-22 08:00] VITALS: BP 142/61; PULSE 72; RESP 16; TEMP 36.9; O2SAT 99
--- NOTE | 2021-08-22 08:25 | HMH.DCSUM ---
General - General Admission date:: 08/20/21 Discharge date: 08/22/21 HPI HPI: 75-year-old -[place] female with history of lupus, chronically elevated sed rate, chronic joint pain, chronic anemia from her multiple disease processes, chronic back pain status post multiple back surgeries in the past who has had a lot of social upheaval with the sudden of her about 3 or 4 weeks ago. She been at home during the day by herself with good attention from her children, but has become progressively more immobile because of pain and fatigue. Significant confusion and fatigue last night, brought to the ER. Found to be anemic, found to have evidence of UTI, found to be hyponatremic and admitted to hospital for further evaluation. Hospital Course Hospital Course: 75-year-old admitted for acute on chronic debility, confusion, weakness. Multiple comorbidities that complicate her clinical status. During admission was worked up for UTI, anemia, abdominal pain. Initiated on empiric antibiotics for UTI however her urine never grew positive cultures so antibiotics discontinued at discharge. Abdominal pain assessed with a CT, no acute abnormalities found. Administered 2 units packed red blood cells for her anemia. Responded well to this with improvement in some of her fatigue and abdominal pain. Electrolytes monitored daily and replaced as needed. Initiated on regular diet and assessed by physical therapy. Given progressive debility, nursing needs, discussed discharging to snf for further care and closer monitoring. Patient amenable to transitioning to [facility]. Adjustments made to medications include holding her losartan, stopping her metoclopramide, and holding her nifedipine for the time being. Recommend reevaluation for these medications once at the snf. I do have concern however of continued use of metoclopramide with her antidepressant medications, medications for memory, and medications for Parkinson's. Polypharmacy strong risk in this patient and needs to be reevaluated with close monitoring at the snf. Medically stable for discharge. Will follow along with her at [facility]. Examined on day of discharge. Objective Vital signs: Temp Pulse Resp BP Pulse Ox 98.5 F 72 16 142/61 H 99 08/22/21 08:00 08/22/21 08:00 08/22/21 08:00 08/22/21 08:00 08/22/21 08:00 Narrative: - Constitutional no acute distress, cachectic, chronically ill appearing - *Routine HEENT Exam Head: Present: normocephalic Eye: Present: EOMI, PERRL ENT: Present: mucous membranes dry - *Routine Neck Exam Present: supple. Absent: lymphadenopathy - *Routine Respiratory Exam Present: CTA bilaterally - *Routine Cardiovascular Exam Present: murmur, irregular rhythm - *Routine Abdominal Exam Present: soft, normoactive bowel sounds. Absent: tenderness - *Routine Extremities Exam Present: edema at baseline; Brawny edema to mid becerril. Chronic joint changes in knees, elbows and hands as previously noted. No evidence of active synovitis. No active rash or clubbing - *Routine Skin Exam Present: warm. Absent: rash - *Routine Neurological Exam Present: alert, oriented X3, Significant global weakness. Cranial nerves intact. Results Labs on day of discharge: Labs from last 24 hours 08/21/21 07:50 Sodium 128 L Potassium 3.2 L Chloride 98 Carbon Dioxide 23 Anion Gap 10.2 BUN 5 L D Creatinine 0.60 D Estimated Creat Clear 59 Estimated GFR 98 Est GFR ( Amer) 119 D Glucose 94 Calcium 8.1 L Total Bilirubin 0.8 AST 20 D ALT 4 L Alkaline Phosphatase 112 Total Protein 5.6 L Albumin 3.0 L Globulin 2.6 Albumin/Globulin Ratio 1.2 Preliminary micro results at discharge 08/19/21 23:30 Blood Culture - Preliminary Blood NO GROWTH AFTER 48 HOURS 08/19/21 23:30 Blood Culture - Preliminary Blood NO GROWTH AFTER 48 H
[2021-08-22 14:41] LABS: Coronavirus 19, PCR Not Detected (NotDetected); Influenza A, PCR Not Detected (NotDetected); Influenza B, PCR Not Detected (NotDetected)
== END 2021-08-22 15:35 ==
LOC: ER 22:05 → 2ND 08-20 00:25
PROVIDERS: Internal Medicine Adolescent Medicine; Admitting Provider Emergency Medicine; Emergency Provider Emergency Medicine; PCP Internal Medicine Adolescent Medicine; Visit Provider Internal Medicine Adolescent Medicine
DX: N39.0 Urinary tract infection, site not specified (principal); L93.0 Discoid lupus erythematosus; D64.9 Anemia, unspecified; I10 Essential (primary) hypertension; E87.1 Hypo-osmolality and hyponatremia; M06.9 Rheumatoid arthritis, unspecified; Z20.822 Contact with and (suspected) exposure to COVID-19; Z86.718 Personal history of other venous thrombosis and embolism; E03.9 Hypothyroidism, unspecified; Z79.899 Other long term (current) drug therapy
CPT/HCPCS: G0378; 36415; 74178; 80048; 80053; 81001; 83605; 83690; 83735; 84145; 84484; 85014; 85018; 85025; 85651; 86140; 86850; 87040; 87086; 93005; 96365; 96367; 97162; 97166; 97530; 99284; C9803; J2405; P9016; Q9967; U0003; U0005

== ENCOUNTER → 2021-08-26 11:16 | Outpatient (POV) | payer MEDICARE, BC, SELFPAY | PROVIDERS: Visit Provider Dermatology | DX: Z00.00 Encounter for general adult medical examination without abnormal findings (principal) ==

== ENCOUNTER → 2021-09-19 07:54 | Outpatient (CLI) | payer MEDICARE, BC, SELFPAY ==
--- NOTE | 2021-09-19 07:58 | CA_ITS ---
APPROVED REPORT [employer] Installer: Rossi Moreno RVT Laterality: Bilateral Study Quality: Good Indications: Dizziness and Vertigo Risk Factors Hypertension: Doppler Spectral Velocity Analysis ECA (R) 160.40/9.60 cm/s ECA (L) 101.20/7.70 cm/s dICA (R) 86.60/19.20 cm/s dICA (L) 117.90/26.90 cm/s Shyann (R) 131.50/13.90 cm/s Shyann (L) 124.30/21.80 cm/s pICA (R) 132.60/13.90 cm/s pICA (L) 202.40/30.70 cm/s dCCA (R) 111.20/15.00 cm/s dCCA (L) 88.80/10.70 cm/s pCCA (R) 128.30/16.00 cm/s pCCA (L) 100.50/16.00 cm/s Vert (R) 69.50/10.70 cm/s Vert (L) 65.30/10.20 cm/s ICA/CCA 1.19 ICA/CCA 2.28 Findings Study suggests less than 20% stenosis of the right internal cartoid artery. Study suggests 50-69% stenosis of the left internal cartoid artery. Antegrade flow seen bilateral vertebral arteries. Conclusion Study suggests less than 20% stenosis of the right internal cartoid artery. Study suggests 50-69% stenosis of the left internal cartoid artery. Antegrade flow seen bilateral vertebral arteries. Electronically signed by : Artie Jones MD 09/19/2021 14:35:35
== END ==
PROVIDERS: PCP Internal Medicine Adolescent Medicine; Visit Provider Internal Medicine Adolescent Medicine
DX: R42 Dizziness and giddiness (principal)
CPT/HCPCS: 93880

== ENCOUNTER → 2021-09-20 20:50 | Outpatient (REF) | payer MEDICARE, BC, SELFPAY ==
[2021-09-20 21:18] LABS: Microscopic, Urine URINE MICROSCOPIC (MICROSCOPIC)
[2021-09-20 21:32] LABS: Appearance,Urine CLOUDY (Clear); Bilirubin,Urine Negative (Negative); Blood, Urine Negative (Negative); Color,Urine YELLOW (Yellow); Glucose,Urine (UA) Negative (Negative); Ketones,Urine Negative (Negative); Leukocyte Esterase,Urine 1+ (Negative); Nitrate,Urine Negative (Negative); Protein,Urine Negative (Negative); Specific Gravity, Urine 1.015 (1.005-1.030); Urobilinogen,Urine 0.2 EU/dl (0.2)
[2021-09-20 21:49] LABS: WBC,Urine 20-50 #/hpf (0-3)
[2021-09-20 21:50] LABS: Bacteria,Urine 1+ /lpf
== END ==
LOC: LAB.DROPOF 20:50
PROVIDERS: Visit Provider Nurse Practitioner Family
DX: N39.0 Urinary tract infection, site not specified (principal); B96.20 Unspecified Escherichia coli [E. coli] as the cause of diseases classified elsewhere
CPT/HCPCS: 81001; 87086; 87088; 87186

== ENCOUNTER → 2021-10-14 12:55 | Outpatient (CLI) | payer MEDICARE, BC, SELFPAY ==
[2021-10-14 13:04] LABS: Microscopic, Urine URINE MICROSCOPIC (MICROSCOPIC)
[2021-10-14 14:02] LABS: Basophils % 0.4 % (0.1-2.0); Eosinophils # 0.7 K/mm3 (0.0-0.4); Hematocrit 33.5 % (37.0-47.0); Hemoglobin 10.2 g/dL (12.2-16.2); Lymphocytes # 0.9 K/mm3 (0.7-4.5); Lymphocytes % 12.9 % (10-50); Mean Corpuscular HGB Conc 30.3 g/dL (31.8-35.4); Mean Corpuscular Hemoglobin 28.4 pg (27.0-31.2); Mean Corpuscular Volume 93.5 fl (81-99); Mean Platelet Volume 8.7 fl (7.4-10.4); Monocytes # 0.3 K/mm3 (0.1-1.0); Monocytes % 4.8 % (1.7-9.3); Neutrophils # 5.1 K/mm3 (1.8-7.8); Platelet Count 306 K/mm3 (142-424); Red Blood Count 3.58 M/mm3 (4.20-5.40); Red Cell Distribution Width 23.2 % (11.5-17.5); White Blood Count 7.1 K/mm3 (4.8-10.8)
[2021-10-14 14:17] LABS: Chloride 101 mmol/L (98-107); Potassium 4.4 mmoL/L (3.5-5.1); Sodium 130 mmol/L (136-145)
[2021-10-14 14:19] LABS: Blood Urea Nitrogen 12 mg/dl (7-17); Estimated Glomerular Filt Rate 49 ml/min (>60); GFR (African American) 59 ML/MIN (>60)
[2021-10-14 14:20] LABS: Alanine Aminotransferase 6 U/L (12-78); Albumin Level 3.7 g/dl (3.5-5.0); Albumin/Globulin Ratio 1.3 (1.1-1.8); Alkaline Phosphatase 96 U/L (38-126); Anion Gap 10.4 mEq/L (5-15); Aspartate Amino Transferase 19 U/L (14-36); Bilirubin,Total 0.5 mg/dl (0.2-1.3); Calcium 9.4 mg/dl (8.4-10.2); Carbon Dioxide 23 mmol/L (22.0-30.0); Globulin 2.8 g/dL (1.3-3.2); Glucose 90 mg/dl (74-100); Total Protein,Serum 6.5 g/dl (6.3-8.2)
[2021-10-14 14:27] LABS: C-Reactive Protein 23.5 mg/L (0-4)
[2021-10-14 15:21] LABS: Erythrocyte Sedimentation Rate 111 mm/hr (0-30)
[2021-10-14 15:33] LABS: Appearance,Urine CLEAR (Clear); Bilirubin,Urine Negative (Negative); Blood, Urine Negative (Negative); Color,Urine YELLOW (Yellow); Glucose,Urine (UA) Negative (Negative); Ketones,Urine Negative (Negative); Leukocyte Esterase,Urine 1+ (Negative); Nitrate,Urine POSITIVE (Negative); PH,Urine 7.5 (5.0-8.5); Protein,Urine Negative (Negative); Urobilinogen,Urine 0.2 EU/dl (0.2)
[2021-10-14 15:54] LABS: Bacteria,Urine 4+ /lpf; WBC,Urine 20-50 #/hpf (0-3)
[2021-10-16 08:23] LABS: Complement C3 151 mg/dL (82-167)
[2021-10-16 14:22] LABS: Anti-DNA (DS) Ab Qn <1 IU/mL (0-9)
== END ==
PROVIDERS: PCP Internal Medicine Adolescent Medicine; Visit Provider Internal Medicine Rheumatology
DX: I10 Essential (primary) hypertension (principal); I27.20 Pulmonary hypertension, unspecified; I73.00 Raynaud's syndrome without gangrene; M06.9 Rheumatoid arthritis, unspecified; M31.6 Other giant cell arteritis; R82.90 Unspecified abnormal findings in urine; B96.20 Unspecified Escherichia coli [E. coli] as the cause of diseases classified elsewhere
CPT/HCPCS: 36415; 80053; 81001; 85025; 85651; 86140; 86161; 86225; 87086; 87088; 87186

== ENCOUNTER → 2021-12-08 12:58 | Outpatient (CLI) | payer MEDICARE, BC, MEDICAID, SELFPAY ==
[2021-12-08 14:43] LABS: Blood Urea Nitrogen 13 mg/dl (7-17)
[2021-12-08 14:44] LABS: Estimated Glomerular Filt Rate 54 ml/min (>60); GFR (African American) 66 ML/MIN (>60)
== END ==
PROVIDERS: Visit Provider Nurse Practitioner Family
DX: I65.23 Occlusion and stenosis of bilateral carotid arteries (principal)
CPT/HCPCS: 36415; 82565; 84520

== ENCOUNTER → 2021-12-16 08:05 | Outpatient (CLI) | payer MEDICARE, BC, SELFPAY | PROVIDERS: PCP Internal Medicine Adolescent Medicine; Visit Provider Nurse Practitioner Family | DX: I65.23 Occlusion and stenosis of bilateral carotid arteries (principal) ==

== ENCOUNTER → 2022-01-09 10:00 | Outpatient (CLI) | payer MEDICARE, BC, MEDICAID, SELFPAY ==
--- NOTE | 2022-01-09 10:18 | XR_ITS ---
FINAL REPORT CLINICAL HISTORY: knee pain COMPARISON: March 06, 2021 FINDINGS: LEFT KNEE Four views were obtained. There is no acute fracture or dislocation. There are mild and moderate degenerative changes which is worse involving the left compartment. The left compartment narrowing has progressed. There is a moderate joint effusion. There is no other soft tissue abnormality. IMPRESSION: Mild and moderate degenerative change worse involving the left compartment. Moderate joint effusion. Reviewed, Interpreted and Dictated by Vasquez Timmons III, MD Transcribed by Yamila Love Authenticated by Vasquez Timmons III, MD on 01/09/2022 11:21:45 AM [facility]
== END ==
PROVIDERS: PCP Internal Medicine Adolescent Medicine; Visit Provider Orthopaedic Surgery
DX: M25.562 Pain in left knee (principal)
CPT/HCPCS: 73564

== ENCOUNTER 2022-01-09 11:24 | Outpatient (RCR) | payer MEDICARE, BC, MEDICAID, SELFPAY | END 2022-01-09 12:20 | disposition home or self-care (01) | LOC: PT 11:24 | PROVIDERS: Visit Provider Orthopaedic Surgery | DX: M25.562 Pain in left knee (principal) | CPT/HCPCS: 97760 ==

== ENCOUNTER → 2022-01-15 11:14 | Outpatient (CLI) | payer MEDICARE, BC, MEDICAID, SELFPAY ==
[2022-01-15 11:40] LABS: Microscopic, Urine URINE MICROSCOPIC (MICROSCOPIC)
[2022-01-15 12:25] LABS: Basophils % 0.4 % (0.1-2.0); Eosinophils # 0.5 K/mm3 (0.0-0.4); Hematocrit 36.8 % (37.0-47.0); Lymphocytes # 1.3 K/mm3 (0.7-4.5); Lymphocytes % 29.3 % (10-50); Mean Corpuscular HGB Conc 29.8 g/dL (31.8-35.4); Mean Corpuscular Hemoglobin 26.9 pg (27.0-31.2); Mean Corpuscular Volume 90.1 fl (81-99); Mean Platelet Volume 8.2 fl (7.4-10.4); Monocytes # 0.5 K/mm3 (0.1-1.0); Monocytes % 10.9 % (1.7-9.3); Neutrophils # 2.2 K/mm3 (1.8-7.8); Neutrophils % 48.3 % (37.0-80.0); Platelet Count 276 K/mm3 (142-424); Red Blood Count 4.09 M/mm3 (4.20-5.40); Red Cell Distribution Width 14.8 % (11.5-17.5); White Blood Count 4.5 K/mm3 (4.8-10.8)
[2022-01-15 13:09] LABS: Alanine Aminotransferase 12 U/L (12-78); Albumin Level 3.8 g/dl (3.5-5.0); Albumin/Globulin Ratio 1.5 (1.1-1.8); Alkaline Phosphatase 123 U/L (38-126); Anion Gap 9.9 mEq/L (5-15); Aspartate Amino Transferase 20 U/L (14-36); Bilirubin,Total 0.4 mg/dl (0.2-1.3); Blood Urea Nitrogen 20 mg/dl (7-17); Calcium 9.4 mg/dl (8.4-10.2); Carbon Dioxide 27 mmol/L (22.0-30.0); Chloride 101 mmol/L (98-107); Estimated Glomerular Filt Rate 49 ml/min (>60); GFR (African American) 59 ML/MIN (>60); Globulin 2.6 g/dL (1.3-3.2); Glucose 75 mg/dl (74-100); Potassium 3.9 mmoL/L (3.5-5.1); Sodium 134 mmol/L (136-145); Total Protein,Serum 6.4 g/dl (6.3-8.2)
[2022-01-15 13:39] LABS: Erythrocyte Sedimentation Rate 25 mm/hr (0-30)
[2022-01-15 17:22] LABS: Appearance,Urine CLEAR (Clear); Bilirubin,Urine Negative (Negative); Blood, Urine Negative (Negative); Color,Urine YELLOW (Yellow); Glucose,Urine (UA) Negative (Negative); Ketones,Urine Negative (Negative); Leukocyte Esterase,Urine Negative (Negative); Nitrate,Urine Negative (Negative); Protein,Urine Negative (Negative); Urobilinogen,Urine 0.2 EU/dl (0.2)
[2022-01-15 17:59] LABS: Squamous Epithelial Cell,Urine Occasional #/hpf (0-5); WBC,Urine Occasional #/hpf (0-3)
[2022-01-16 08:17] LABS: Complement C3 157 mg/dL (82-167)
== END ==
PROVIDERS: Visit Provider Internal Medicine Rheumatology
DX: I10 Essential (primary) hypertension (principal); I27.20 Pulmonary hypertension, unspecified; I73.00 Raynaud's syndrome without gangrene; M06.9 Rheumatoid arthritis, unspecified; M31.6 Other giant cell arteritis
CPT/HCPCS: 36415; 80053; 81001; 85025; 85651; 86140; 86161

== ENCOUNTER → 2022-02-13 15:36 | Outpatient (CLI) | payer MEDICARE, BC, SELFPAY ==
[2022-02-13 16:33] LABS: Adenovirus F 40/41, stool Not Detected (NotDetected); Astrovirus Not Detected (NotDetected); Campylobacter Not Detected (NotDetected); Cryptosporidium Not Detected (NotDetected); Cyclospora Cayetanesis Not Detected (NotDetected); Entamoeba histolytica Not Detected (NotDetected); Enteroaggregative E coli Not Detected (NotDetected); Enteropathogenic E coli Not Detected (NotDetected); Enterotoxigenic E coli Not Detected (NotDetected); Giardia lamblia Not Detected (NotDetected); Norovirus Not Detected (NotDetected); Plesimonas Shigalloides, PCR Not Detected (NotDetected); Rotavirus A Not Detected (NotDetected); Salmonella, PCR Not Detected (NotDetected); Sapovirus Not Detected (NotDetected); Shiga-like toxin E coli Not Detected (NotDetected); Shigella Enterovasive E coli Not Detected (NotDetected); Vibrio Cholerae Not Detected (NotDetected); Vibrio, PCR Not Detected (NotDetected); Yersinia Entercolitica, PCR Not Detected (NotDetected)
[2022-02-14 18:13] LABS: Clostridium Difficile A/B, PCR Detected (NotDetected)
== END ==
PROVIDERS: Nurse Practitioner Family; PCP Internal Medicine Adolescent Medicine; Visit Provider Internal Medicine Adolescent Medicine
DX: R19.7 Diarrhea, unspecified; R19.4 Change in bowel habit; A04.72 Enterocolitis due to Clostridium difficile, not specified as recurrent; R13.10 Dysphagia, unspecified; K30 Functional dyspepsia
CPT/HCPCS: 87507

== ENCOUNTER 2022-02-17 11:00 | Outpatient (RCR) | payer MEDICARE, BC, MEDICAID, SELFPAY ==
--- NOTE | 2021-12-16 10:06 | HMH.PTOPEV ---
PT Outpatient Evaluation Rehab PT Outpatient Evaluation Start: 12/16/21 09:12 Freq: Status: Active Protocol: Document 12/16/21 09:53 EVA (Rec: 12/16/21 10:04 EVA [id number]) Electronically Signed By Hesham Blanton, PT 12/16/21 09:53 Outpatient Therapy Subjective History Subjective History Patient is a 76 year old female presenting to outpatient PT with reports of chronic L posterior knee pain starting 02/2021 of insidioius onset. Most recent imaging indicate L knee OA per patient report. Patient report hx of multiple falls secondary to BLE weakness over the past six months. Comorbidities include hx of multi-level lumbar fusion, lupus, heart murmur, HTN, COPD and beginning stage renal failure. Chief Complaint Pain,Stiff,Paresthesia, Weakness Symptom Type Ache,Numbness,Tingling Symptoms Relieved By Rest/Positioning,OTC Meds, Prescription Meds Prior Functional Limitations Housework,Standing,Walking Current Functional Limitations Lifting,Housework,Standing, Walking,Bending/Stooping Symptom Description Constant but Variable Level of pain today (0-10) 8 Pain scale - at its best (0-10) 5 Pain scale - at its worst (0-10) 9 Hip/Knee Eval Gait Observation General Gait Pattern Observation Antalgic Gait,Wide Based Gait, Decrease Weight Bear (L) Assistive Device Assistive Devices Straight Cane Palpation Tenderness left Knee Palpation Finding Tenderness Knee Palpation Overall Comment Med/lat joint line, popliteal fossa 4/4 MMT Hip Flexion Strength Grade 3+ Fair+ Hip Abduction Strength Grade 3+ Fair+ Hip Adduction Strength Grade 3+ Fair+ Hip Extension Strength Grade 3+ Fair+ Hip External Rotation Strength Grade 3+ Fair+ Hip Internal Rotation Strength Grade 3+ Fair+ Knee Extension Strength Grade 3+ Fair+ Knee Flexion Strength Grade 3+ Fair+ ROM Hip ROM Reason Not Measured Within Functional Limits Knee Extension Active Range of Motion ( -9 degrees) Knee Flexion Active Range of Motion ( 82 degrees) Special Tests Knee Anterior Danny Test Negative Left Knee Valgus Stress Test Negative Left Knee Varus Stress Test Negative Left Knee Darrell
--- NOTE | 2022-01-15 10:43 | HMH.RHREAS ---
Rehab Reassessment Rehab OP Re-assessment Start: 01/15/22 10:16 Freq: Status: Active Protocol: Document 01/15/22 10:17 EVA (Rec: 01/15/22 10:38 EVA [id number]) Electronically Signed By Hesham Blanton, PT 01/15/22 10:17 Rehab Re-assessment Subjective Subjective Patient reports 50% improvement since start of care. Objective Objective Notes AROM:-2-102 MMT: 4+/5 all hip/thigh mm L Pain: 0/10 today; 5/10 at worst over past week Neuro: WNL Special tests: negative Assessment Progress Assessment Progressing as Expected Assessment Notes Objective improvements as noted above. Patient continues to experience intermittent L posterior knee pain and extension deficits. Patient would benefit from continuing with skilled PT services in order to address functional limitations with all standing/ambulatory activities. Patient goals met STG's Goals Not Met LTG's Revised Goals NA Plan Plan Continue with current POC. Frequency of Therapy 2x/week Duration of therapy 4 weeks Time and Billing Re-Eval Time 15 Re-Eval Billing Units 1 PHYSICIAN CERTIFICATION: I certify the specified therapy services for Yoko Jerez are required, authorized, and reviewed every 30 days.
== END 2022-02-17 11:05 | disposition home or self-care (01) ==
LOC: PT 11:00
PROVIDERS: PCP Internal Medicine Adolescent Medicine; Visit Provider Nurse Practitioner Family
DX: M25.562 Pain in left knee (principal)
CPT/HCPCS: 97010; 97014; 97110; 97163; 97164; G0283

== ENCOUNTER → 2022-03-07 12:02 | Outpatient (CLI) | payer MEDICARE, BC, MEDICAID, SELFPAY ==
[2022-03-07 14:04] LABS: Basophils % 0.9 % (0.1-2.0); Eosinophils # 0.9 K/mm3 (0.0-0.4); Eosinophils % 18.1 % (0.1-12.0); Hematocrit 37.3 % (37.0-47.0); Lymphocytes # 1.5 K/mm3 (0.7-4.5); Lymphocytes % 31.7 % (10-50); Mean Corpuscular HGB Conc 32.2 g/dL (31.8-35.4); Mean Corpuscular Hemoglobin 27.7 pg (27.0-31.2); Mean Corpuscular Volume 86.1 fl (81-99); Mean Platelet Volume 9.3 fl (7.4-10.4); Monocytes # 0.4 K/mm3 (0.1-1.0); Monocytes % 8.1 % (1.7-9.3); Neutrophils % 41.2 % (37.0-80.0); Platelet Count 253 K/mm3 (142-424); Red Blood Count 4.34 M/mm3 (4.20-5.40); Red Cell Distribution Width 15.2 % (11.5-17.5); White Blood Count 4.8 K/mm3 (4.8-10.8)
[2022-03-07 14:43] LABS: Erythrocyte Sedimentation Rate 49 mm/hr (0-30)
[2022-03-07 15:23] LABS: Alanine Aminotransferase 13 U/L (12-78); Albumin Level 3.8 g/dl (3.5-5.0); Albumin/Globulin Ratio 1.4 (1.1-1.8); Alkaline Phosphatase 139 U/L (38-126); Anion Gap 10.4 mEq/L (5-15); Aspartate Amino Transferase 27 U/L (14-36); Blood Urea Nitrogen 18 mg/dl (7-17); Calcium 9.3 mg/dl (8.4-10.2); Carbon Dioxide 27 mmol/L (22.0-30.0); Chloride 98 mmol/L (98-107); Estimated Glomerular Filt Rate 49 ml/min (>60); GFR (African American) 59 ML/MIN (>60); Globulin 2.7 g/dL (1.3-3.2); Glucose 75 mg/dl (74-100); Magnesium 1.7 mg/dl (1.6-2.3); Potassium 3.4 mmoL/L (3.5-5.1); Sodium 132 mmol/L (136-145); Total Protein,Serum 6.5 g/dl (6.3-8.2)
[2022-03-07 15:24] LABS: Bilirubin,Total 0.1 mg/dl (0.2-1.3)
[2022-03-07 15:29] LABS: C-Reactive Protein 31.1 mg/L (0-4)
[2022-03-07 15:41] LABS: Free Thyroxine Index 1.6 ug/dL (5.93-13.13); T4 (Thyroxine) 5.9 ug/dl (5.53-11.0); Triiodothryronine (T3) Uptake 27 % (23.5-40.5)
[2022-03-07 15:54] LABS: Thyroid Stimulating Hormone 5.59 uIU/mL (0.465-4.68)
== END ==
PROVIDERS: PCP Internal Medicine Adolescent Medicine; Visit Provider Internal Medicine Adolescent Medicine
DX: M32.9 Systemic lupus erythematosus, unspecified (principal); E05.90 Thyrotoxicosis, unspecified without thyrotoxic crisis or storm; E83.42 Hypomagnesemia
CPT/HCPCS: 36415; 80053; 83735; 84436; 84443; 84479; 85025; 85651; 86140

== ENCOUNTER → 2022-03-31 10:29 | Outpatient (CLI) | payer MEDICARE, BC, MEDICAID, SELFPAY ==
[2022-03-31 11:21] LABS: Albumin Level 3.9 g/dl (3.5-5.0); Anion Gap 11.7 mEq/L (5-15); Blood Urea Nitrogen 25 mg/dl (7-17); Calcium 9.4 mg/dl (8.4-10.2); Carbon Dioxide 27 mmol/L (22.0-30.0); Chloride 100 mmol/L (98-107); Estimated Glomerular Filt Rate 37 ml/min (>60); GFR (African American) 44 ML/MIN (>60); Glucose 97 mg/dl (74-100); Phosphorous 3.6 mg/dl (2.5-4.5); Potassium 3.7 mmoL/L (3.5-5.1); Sodium 135 mmol/L (136-145)
== END ==
PROVIDERS: PCP Internal Medicine Adolescent Medicine; Visit Provider Internal Medicine Nephrology
DX: N18.30 Chronic kidney disease, stage 3 unspecified (principal); R60.9 Edema, unspecified
CPT/HCPCS: 36415; 80069

== ENCOUNTER → 2022-04-29 11:12 | Outpatient (CLI) | payer MEDICARE, BC, MEDICAID, SELFPAY ==
[2022-04-29 11:57] LABS: Basophils % 0.8 % (0.1-2.0); Eosinophils # 0.9 K/mm3 (0.0-0.4); Eosinophils % 19.7 % (0.1-12.0); Hematocrit 37.1 % (37.0-47.0); Hemoglobin 11.2 g/dL (12.2-16.2); Lymphocytes # 1.8 K/mm3 (0.7-4.5); Lymphocytes % 40.9 % (10-50); Mean Corpuscular HGB Conc 30.2 g/dL (31.8-35.4); Mean Corpuscular Hemoglobin 27.2 pg (27.0-31.2); Mean Platelet Volume 8.6 fl (7.4-10.4); Monocytes # 0.3 K/mm3 (0.1-1.0); Monocytes % 5.9 % (1.7-9.3); Neutrophils # 1.5 K/mm3 (1.8-7.8); Neutrophils % 32.8 % (37.0-80.0); Platelet Count 223 K/mm3 (142-424); Red Blood Count 4.12 M/mm3 (4.20-5.40); Red Cell Distribution Width 16.6 % (11.5-17.5); White Blood Count 4.4 K/mm3 (4.8-10.8)
[2022-04-29 12:52] LABS: Albumin Level 3.6 g/dl (3.5-5.0); Anion Gap 6.8 mEq/L (5-15); Blood Urea Nitrogen 20 mg/dl (7-17); Calcium 9.1 mg/dl (8.4-10.2); Carbon Dioxide 31 mmol/L (22.0-30.0); Chloride 103 mmol/L (98-107); Estimated Glomerular Filt Rate 40 ml/min (>60); GFR (African American) 48 ML/MIN (>60); Glucose 99 mg/dl (74-100); Phosphorous 3.4 mg/dl (2.5-4.5); Potassium 3.8 mmoL/L (3.5-5.1); Sodium 137 mmol/L (136-145)
[2022-04-29 14:42] LABS: Creatinine,Urine Random 109 mg/dL (Not Estab.); Microalbumin < 6.000 mg/L (0-16.7)
== END ==
PROVIDERS: PCP Internal Medicine Adolescent Medicine; Visit Provider Internal Medicine Nephrology
DX: N18.31 Chronic kidney disease, stage 3a (principal)
CPT/HCPCS: 36415; 80069; 82043; 82570; 85025

== ENCOUNTER → 2022-04-30 16:09 | Outpatient (CLI) | payer MEDICARE, BC, MEDICAID, SELFPAY ==
--- NOTE | 2022-04-30 16:14 | XR_ITS ---
FINAL REPORT CLINICAL HISTORY: HAND PAIN, LEFT, pain at tip of pinky FINDINGS: Left hand Three views were obtained. There is no acute fracture or dislocation. Mild and moderate degenerative changes are present, greatest involving the 1st interphalangeal joint, 3rd metacarpophalangeal joint, and 2nd through 5th DIP joints. There are chronic calcifications at the dorsal aspect of the 3rd, 4th, and 5th DIP joints. No soft tissue abnormality is identified. IMPRESSION: Degenerative changes with no acute process. Reviewed, Interpreted and Dictated by Vasquez Timmons III, MD Transcribed by Lorin Sesay Authenticated and [facility]
== END ==
PROVIDERS: PCP Nurse Practitioner Family; Visit Provider Nurse Practitioner Family
DX: M79.642 Pain in left hand (principal)
CPT/HCPCS: 73130

== ENCOUNTER → 2022-05-12 13:27 | Outpatient (CLI) | payer MEDICARE, BC, SELFPAY ==
--- NOTE | 2022-05-12 13:31 | MM_ITS ---
PROCEDURE INFORMATION: Exam: US Right Breast, Complete MG Right Diagnostic Breast Tomosynthesis Exam date and time: 05/12/2022 1:36 PM Age: 76 years old Clinical indication: Concern for right breast pain. TECHNIQUE: Imaging protocol: Complete ultrasound of all four quadrants of the Right breast and the retroareolar regions, including ultrasound of the axilla when performed. Right Diagnostic tomosynthesis and 2D mammography including computer-aided detection (CAD) when performed. Unilateral or bilateral exam. COMPARISON: 1. MG MM DIG SCREENING MAMM BI W/CAD 08/18/2021 11:01 AM 2. MG MM DIG MAMM BI DX W/CAD 01/03/2020 1:53 PM 3. MG MM DIG MAMM BI DX W/CAD 05/12/2019 1:53 PM 4. MG DXBI MM Dig mamm BI DX w/CAD 11/17/2018 1:43 PM FINDINGS: MAMMOGRAPHY: Breast composition: There are scattered areas of fibroglandular density. Mass: None. Architectural distortion: None. Calcifications: No suspicious calcifications. Asymmetric density: None. Skin thickening: None. Axillary adenopathy: None. Other: Biopsy clips. ULTRASOUND: Right sonography, all 4 quadrants, retroareolar and axilla demonstrates no cystic or solid findings with particular attention to the areas of pain at 9 and 11 o'clock. Sonographically unremarkable right axillary lymph node. IMPRESSION: No mammographic or sonographic evidence of malignancy. Further evaluation of a painful abnormality should be based on clinical grounds regardless of radiographic findings or lack thereof. Annual screening mammogram due in July 2022, unless otherwise clinically indicated. ASSESSMENT: BI-RADS Category 2: Benign
== END ==
PROVIDERS: PCP Nurse Practitioner Family; Visit Provider Nurse Practitioner Family
DX: R92.8 Other abnormal and inconclusive findings on diagnostic imaging of breast (principal); N64.4 Mastodynia
CPT/HCPCS: 76641; 77061; 77065; G0279

== ENCOUNTER 2022-06-30 10:57 | Observation (INO) | payer MEDICARE, BC, MEDICAID, SELFPAY ==
[2022-06-30 11:14] VITALS: BMI 27.8
--- NOTE | 2022-06-30 11:42 | XR_ITS ---
FINAL REPORT CLINICAL HISTORY: cough, COVID COMPARISON: August 11, 2021 FINDINGS: The heart size is normal. The mediastinum is within normal limits. There is no acute cardiopulmonary process. There is no pleural effusion. There is no pneumothorax. There are spinal rods in the lower thoracic spine extending into the lumbar spine. Postoperative changes are seen of the right shoulder. IMPRESSION: No acute cardiopulmonary process. Reviewed, Interpreted and Dictated by Vasquez Timmons III, MD Transcribed by Isaac Capellan Authenticated and [facility]
[2022-06-30 12:00] VITALS: BP 94/70; PULSE 68; RESP 20; TEMP 36.7; O2SAT 90
[2022-06-30 13:16] LABS: Basophils # 0.1 K/mm3 (0-0.2); Eosinophils # 0.5 K/mm3 (0.0-0.4); Eosinophils % 8.2 % (0.1-12.0); Hematocrit 38.7 % (37.0-47.0); Hemoglobin 11.9 g/dL (12.2-16.2); Lymphocytes # 1.4 K/mm3 (0.7-4.5); Lymphocytes % 20.6 % (10-50); Mean Corpuscular HGB Conc 30.8 g/dL (31.8-35.4); Mean Corpuscular Hemoglobin 28.2 pg (27.0-31.2); Mean Corpuscular Volume 91.4 fl (81-99); Mean Platelet Volume 8.8 fl (7.4-10.4); Monocytes # 0.5 K/mm3 (0.1-1.0); Monocytes % 7.7 % (1.7-9.3); Neutrophils # 4.1 K/mm3 (1.8-7.8); Neutrophils % 62.6 % (37.0-80.0); Platelet Count 231 K/mm3 (142-424); Red Blood Count 4.24 M/mm3 (4.20-5.40); Red Cell Distribution Width 18.4 % (11.5-17.5); White Blood Count 6.6 K/mm3 (4.8-10.8)
[2022-06-30 13:38] LABS: Alanine Aminotransferase 8 U/L (12-78); Albumin Level 4.2 g/dl (3.5-5.0); Albumin/Globulin Ratio 1.2 (1.1-1.8); Alkaline Phosphatase 202 U/L (38-126); Anion Gap 13.1 mEq/L (5-15); Aspartate Amino Transferase 51 U/L (14-36); Bilirubin,Total 1.5 mg/dl (0.2-1.3); Blood Urea Nitrogen 18 mg/dl (7-17); Calcium 8.8 mg/dl (8.4-10.2); Carbon Dioxide 26 mmol/L (22.0-30.0); Chloride 98 mmol/L (98-107); Creatinine Clearance Estimated 48 mL/min (50-200); Estimated Glomerular Filt Rate 44 ml/min (>60); GFR (African American) 53 ML/MIN (>60); Globulin 3.6 g/dL (1.3-3.2); Glucose 73 mg/dl (74-100); Potassium 5.1 mmoL/L (3.5-5.1); Sodium 132 mmol/L (136-145); Total Protein,Serum 7.8 g/dl (6.3-8.2)
[2022-06-30 16:00] VITALS: BP 157/71; PULSE 80; RESP 20; TEMP 37; O2SAT 95
--- NOTE | 2022-06-30 16:20 | EXP.HP ---
History of Present Illness *Admission Date: 06/30/22 *Reason for visit:: weakness, COVID-19 *History of present illness: 76 year old female with hyperthyroidism, HLD, depression, anxiety, HLD and RA on Arava and oral prednisone daily presented to PCP office with weakness and dizziness following positive COVID-19 home test yesterday. Onset of symptoms late Wednesday night. Significant weakness, required WC transport to PCP office which is not her baseline. SBP found to be in the 80's with lethargy. Repeat COVID-19 + in office today. She was directed admitted for IVF's, labs and further evaluation. [facility] 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 Carotid bruit Diastolic dysfunction DVT (deep venous thrombosis) Edema GERD (gastroesophageal reflux disease) Heart murmur HHD (hypertensive heart disease) HLD (hyperlipidemia) HTN (hypertension), benign Palpitations Peripheral arterial disease PVD (peripheral vascular disease) Renal disease Right carotid bruit Family History Tuberculosis Substance abuse Coronary artery disease Alcoholism Anemia Hyperlipidemia Kidney disease Heart attack FHx: mental illness Cancer Hypertension 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 Smoking Status: Former smoker alcohol intake: never substance use type: denies use current occupational status: retired Travel in the last 8 weeks: Inside the [place] household members: children current occupational exposures/hazards: No Review of Systems Review of Systems Review of systems:: pertinent systems reviewed and negative unless documented below Constitutional Constitutional: Reports body ache(s), Reports fatigue, Reports headache(s), Reports poor appetite, Reports lethargy, Reports malaise and Reports weakness Eyes Comments: cataract surgery yesterday ENT Ears, Nose, Mouth, and Throat: Reports otalgia, Reports headache(s) and Reports vertigo *Respiratory Respiratory: Reports cough *Gastrointestinal Gastrointestinal: Reports diarrhea *Musculoskeletal Musculoskeletal: Reports arthralgias and Reports myalgias *Neurologic Neurologic: Reports headache(s), Reports vertigo and Reports weakness Endocrine Endocrine: Reports fatigue Meds Home Medications and Allergies Home Medications Medication Instructions Recorded Confirmed Type Lactobacillus acidophilus 500 1 tab PO DAILY Probiotic 30 days 08/22/21 06/30/22 Rx million cell capsule #30 caps ascorbate calcium (vitamin C) 500 500 mg PO DAILY Vitamin 30 days 08/22/21 06/30/22 Rx mg tablet #30 tabs aspirin 81 mg tablet,delayed 81 mg PO DAILY HEART HEALTH 30 08/22/21 06/30/22 Rx release days #30 tabs bumetanide 1 mg tablet 1 mg PO DAILY diuretic 30 days #30 08/22/21 06/30/22 Rx tabs carbidopa ER 25 mg-levodopa 100 mg 1 each PO TID parkinsons 30 days 08/22/21 06/30/22 Rx tablet,extended release #90 tabs carvedilol 12.5 mg tablet 18.75 mg PO BID High blood 08/22/21 06/30/22 Rx pressure 30 days #90 tabs cetirizine 10 mg capsule 10 mg PO DAILY Allergies 30 days 08/22/21 06/30/22 Rx #30 caps chlorthalidone 25 mg tablet 25 mg PO DAILY Fluid 30 days #30 08/22/21 06/30/22 Rx tabs cholecalciferol (vitamin D3) 25 1 cap PO BID Supplement 30 days 08/22/21 06/30/22 Rx mcg (1,000 unit) capsule #60 caps cyanocobalamin (vitamin B-12) 1 tab PO DAILY Supplement 30 days 08/22/21 06/30/22 Rx 1,000 mcg tablet #30 tabs donepezil 10 mg tablet 10 mg PO HS Memory 30 days #30 tabs 08/22/21 06/30/22 Rx dorzolamide 22.3 mg-timolol 6.8 1 drp ophthalmic (eye) BID Eye 08/22/21 06/30/22 Rx mg/mL eye drops health 30 days ##1 fluticasone propionate 50 2 spry intranasal DAILY Allergies 08/22/21 06/30/22 Rx mcg/actuation nasal 30 days ##1 spray,suspension gabapentin 300 mg capsule 300 mg PO 5XDAY Pain 30 days #150 08/22/21 06/30/22 Rx caps leflunomide 20 mg tablet 20 mg P
--- NOTE | 2022-06-30 17:48 | PC.NURSE ---
Griffin Frank ,GENETIC COUNSELOR here to see pt and stated she could have imodium prn, will send order to pharmacy. Diarrhea panel also ordered.
[2022-06-30 17:50] LABS: Adenovirus F 40/41, stool Not Detected (NotDetected); Astrovirus Not Detected (NotDetected); Campylobacter Not Detected (NotDetected); Clostridium Difficile A/B, PCR Not Detected (NotDetected); Cryptosporidium Not Detected (NotDetected); Cyclospora Cayetanesis Not Detected (NotDetected); Entamoeba histolytica Not Detected (NotDetected); Enteroaggregative E coli Not Detected (NotDetected); Enteropathogenic E coli Not Detected (NotDetected); Enterotoxigenic E coli Not Detected (NotDetected); Giardia lamblia Not Detected (NotDetected); Norovirus Not Detected (NotDetected); Plesimonas Shigalloides, PCR Not Detected (NotDetected); Rotavirus A Not Detected (NotDetected); Salmonella, PCR Not Detected (NotDetected); Sapovirus Not Detected (NotDetected); Shiga-like toxin E coli Not Detected (NotDetected); Shigella Enterovasive E coli Not Detected (NotDetected); Vibrio Cholerae Not Detected (NotDetected); Vibrio, PCR Not Detected (NotDetected); Yersinia Entercolitica, PCR Not Detected (NotDetected)
[2022-06-30 19:02] LABS: Adenovirus,PCR Not Detected (NotDetected); Bordetella Pertussis Not Detected (NotDetected); Chlamydophila Pneumoniae, PCR Not Detected (NotDetected); Coronavirus 229E Not Detected (NotDetected); Coronavirus NL63 Not Detected (NotDetected); Coronavirus OC43 Not Detected (NotDetected); Coronovirus HKU1,PCR Not Detected (NotDetected); Human Metapneumovirus Not Detected (NotDetected); Influenza A, PCR Not Detected (NotDetected); Influenza AH1, 2009 Not Detected (NotDetected); Influenza AH1, PCR Not Detected (NotDetected); Influenza AH3,PCR Not Detected (NotDetected); Influenza B, PCR Not Detected (NotDetected); Mycoplasma Pneumoniae, PCR Not Detected (NotDetected); Parainfluenza 1, PCR Not Detected (NotDetected); Parainfluenza 2, PCR Not Detected (NotDetected); Parainfluenza 3, PCR Not Detected (NotDetected); Parainfluenza 4, PCR Not Detected (NotDetected); Respiratory Syncytial Virus Not Detected (NotDetected); Rhinovirus/Enterovirus Not Detected (NotDetected)
[2022-06-30 19:37] VITALS: BP 164/64; PULSE 77; RESP 20; TEMP 36.6; O2SAT 98
[2022-06-30 23:31] LABS: Coronavirus 19, PCR Detected (NotDetected)
[2022-07-01] VITALS: BP 168/68; PULSE 87; RESP 16; TEMP 36.9; O2SAT 99
[2022-07-01 04:00] VITALS: BP 122/53; PULSE 90; RESP 20; TEMP 38.2; O2SAT 97
--- NOTE | 2022-07-01 04:16 | PC.NURSE ---
pt A&OX4. ambulates to and from bathroom with assistance. c/o pain, given tylenol per mar with favorable results. no c/o SOB. O2 sats >95% on RA. tolerating clear liquid diet well. CB in reach.
[2022-07-01 06:53] LABS: Chloride 102 mmol/L (98-107)
[2022-07-01 06:54] LABS: Basophils % 0.6 % (0.1-2.0); Eosinophils # 0.4 K/mm3 (0.0-0.4); Eosinophils % 8.8 % (0.1-12.0); Lymphocytes # 1.3 K/mm3 (0.7-4.5); Lymphocytes % 30.6 % (10-50); Mean Corpuscular HGB Conc 29.8 g/dL (31.8-35.4); Mean Corpuscular Hemoglobin 27.5 pg (27.0-31.2); Mean Corpuscular Volume 92.3 fl (81-99); Mean Platelet Volume 8.3 fl (7.4-10.4); Monocytes # 0.4 K/mm3 (0.1-1.0); Monocytes % 8.9 % (1.7-9.3); Neutrophils # 2.1 K/mm3 (1.8-7.8); Platelet Count 194 K/mm3 (142-424); Potassium 3.1 mmoL/L (3.5-5.1); Red Cell Distribution Width 17.7 % (11.5-17.5); Sodium 136 mmol/L (136-145); White Blood Count 4.2 K/mm3 (4.8-10.8)
[2022-07-01 06:56] LABS: Hemoglobin 10.4 g/dL (12.2-16.2)
[2022-07-01 06:57] LABS: Anion Gap 8.1 mEq/L (5-15); Blood Urea Nitrogen 11 mg/dl (7-17); Carbon Dioxide 29 mmol/L (22.0-30.0); Creatinine Clearance Estimated 57 mL/min (50-200); Estimated Glomerular Filt Rate 54 ml/min (>60); GFR (African American) 66 ML/MIN (>60); Glucose 74 mg/dl (74-100)
--- NOTE | 2022-07-01 07:31 | HMH.PHAINT1 ---
Pharmacy Intervention Comments: Home medication reconciliation completed using outpatient pharmacy list.
[2022-07-01 07:54] VITALS: BP 139/60; PULSE 98; RESP 14; TEMP 37.5; O2SAT 96
--- NOTE | 2022-07-01 08:52 | EXP.DC.SUM ---
General Admission date:: 06/30/22 Discharge date: 07/01/22 HPI HPI HPI: 76 year old female with hyperthyroidism, HLD, depression, anxiety, HLD and RA on Arava and oral prednisone daily presented to PCP office with weakness and dizziness following positive COVID-19 home test yesterday. Onset of symptoms late Wednesday night. Significant weakness, required WC transport to PCP office which is not her baseline. SBP found to be in the 80's with lethargy. Repeat COVID-19 + in office today. She was directed admitted for IVF's, labs and further evaluation. Hospital Course Hospital Course Hospital Course: Patient was admitted, given IV fluids. [place] much better. Her diarrhea resolved. She was able to keep fluids down. White counts remain normal. Electrolytes showed mild potassium lowering today after fluids but she is begun eating this morning. Plan will be to discharge home. Patient has home health services involved. Have asked them to do PT and OT with patient. She did test positive for COVID and we will prescribe Jassi Vera given her advanced age and immune system problems on discharge. We will see her in my office in 6 days Exam Data for Last 24 hours Vital signs and Labs for Last 24 Hours: Temp Pulse Resp BP Pulse Ox 99.5 F 98 H 14 139/60 96 07/01/22 07:54 07/01/22 07:54 07/01/22 07:54 07/01/22 07:54 07/01/22 07:54 Laboratory Results - last 24 hr 06/30/22 12:30: WBC 6.6, RBC 4.24, Hgb 11.9 L, Hct 38.7, MCV 91.4, MCH 28.2, MCHC 30.8 L, RDW 18.4 H, Plt Count 231, MPV 8.8, Neut % (Auto) 62.6, Lymph % (Auto) 20.6, [place] % (Auto) 7.7, Eos % (Auto) 8.2, Baso % (Auto) 1.0, Neut # (Auto) 4.1, Lymph # (Auto) 1.4, Johnston # (Auto) 0.5, Eos # (Auto) 0.5 H, Baso # (Auto) 0.1 06/30/22 12:30: Sodium 132 L, Potassium 5.1, Chloride 98, Carbon Dioxide 26, Anion Gap 13.1, BUN 18 H, Creatinine 1.20 H, Estimated Creat Clear 48, Estimated GFR 44 L, Est GFR ( Am) 53 L, Glucose 73 L, Calcium 8.8, Total Bilirubin 1.5 H, AST 51 H, ALT 8 L, Alkaline Phosphatase 202 H, Total Protein 7.8, Albumin 4.2, Globulin 3.6 H, Albumin/Globulin Ratio 1.2 06/30/22 16:25: Stl Aeromonas (PCR) Not detected, Stl C. cayetanensis PCR Not detected, Stool Rotavirus (PCR) Not detected, Stl Adenov F 40/41 PCR Not detected, Stool Astrovirus (PCR) Not detected, Stool Campylobacter PCR Not detected, Stl C.difficile Tox PCR Not detected, Stool Cryptosporidium PCR Not detected, Stl E.coli Shiga Tox PCR Not detected, Stool E coli O157 PCR Not detected, Stl Enterotoxigenic E PCR Not detected, Stool EPEC (PCR) Not detected, Stool EAEC (PCR) Not detected, Stl E. histolytica PCR Not detected, Stool Giardia Lamblia PCR Not detected, Stool Salmonella PCR Not detected, Stool Sapovirus (PCR) Not detected, Stl P. shigelloides PCR Not detected, Stl Shigella/EIEC PCR Not detected, St Y.enterocolitica PCR Not detected, Stool Vibrio (PCR) Not detected, Stl Vibrio cholerae PCR Not detected, Stl Norovirus GI/GII PCR Not detected 06/30/22 18:56: Chlamy pneumoniae PCR Not detected, Adenovirus (PCR) Not detected, B. pertussis DNA (PCR) Not detected, Coronavirus OC43 (PCR) Not detected, Coronavirus HKU1 (PCR) Not detected, Coronavirus 229E (PCR) Not detected, SARS-CoV-2 (PCR) Detected A, Coronavirus NL63 (PCR) Not detected, Human Metapneumovir PCR Not detected, Influenza A (H1) PCR Not detected, Influ A (H1N1/09) PCR Not detected, Influenza A (H3) PCR Not detected, Influenza Type A (PCR) Not detected, Influenza Type B (PCR) Not detected, M. pneumoniae (PCR) Not detected, Parainfluenza 1 (PCR) Not detected, Parainfluenza 2 (PCR) Not detected, Parainfluenza 3 (PCR) Not detected, Parainfluenza 4 (PCR) Not detected, RSV (PCR) Not detected, Entero/Rhino (PCR) Not detected 07/01/22 06:24: WBC 4.2 L D, RBC 3.80 L, Hgb 10.4 L D, Hct 35.0 L, MCV 92.3, MCH 27.5, MCHC 29.8 L, RDW 17.7 H, Plt Count 194, MPV 8.3, Neut % (Auto) 51.0, Lymph % (Auto) 30.6, [place] % (Auto) 8.9, Eos % (Auto) 8.8, Baso % (Auto) 0.6, Neut # (Auto)
--- NOTE | 2022-07-01 09:23 | SW/DCPLANNER ---
Addendum entered by Bibi Rao 07/01/22 10:39: Home Health services will begin tomorrow for this patient. Original Note: This patient is currently established with home health services through [facility] for detention. I will fax [facility] a new order for PT/OT/detention today. Patient will discharge home this morning.
--- NOTE | 2022-07-02 13:33 | CARE MANAGER ---
Contacted patient related to hospital discharge. Patient states she is tired, but doing okay. She picked up her new medication and is aware of her follow up appointment. Denies any questions or concerns at this time. MAGALIE Coates
== END 2022-07-01 10:08 | disposition home health service (06) ==
PROVIDERS: Nurse Practitioner Family; Admitting Provider Internal Medicine Adolescent Medicine; PCP Internal Medicine Adolescent Medicine; Visit Provider Internal Medicine Adolescent Medicine
DX: U07.1 COVID-19 (principal); I95.9 Hypotension, unspecified; E86.0 Dehydration; E05.90 Thyrotoxicosis, unspecified without thyrotoxic crisis or storm; M06.9 Rheumatoid arthritis, unspecified; D84.9 Immunodeficiency, unspecified; E78.5 Hyperlipidemia, unspecified; Z79.899 Other long term (current) drug therapy
CPT/HCPCS: G0378; G0379; 36415; 71045; 80048; 80053; 85025; 87040; 87507; 87581; 87632; 87798; C9803; U0003; U0005

== ENCOUNTER 2022-07-15 12:14 | Observation (INO) | payer MEDICARE, BC, MEDICAID, SELFPAY ==
[2022-07-15] VITALS (13 sets, daily range): BP systolic 103–162; BP diastolic 50–74; PULSE 70–94; RESP 16–19; TEMP 36.7–37.2; O2SAT 95–100; BMI 27.4; BMI 27.6
--- NOTE | 2022-07-15 12:41 | HMH.EDGENADL ---
Discharge Plan Disposition Patient Disposition: Admitted as Observation Condition: Fair Chief Complaint: Weakness Clinical Impressions Clinical Impression: Weakness, Dehydration Discharge ED Provider: Lisa Nicholas General Adult HPI General Chief complaint: Weakness Stated complaint: Vomitting, Diahrrea, possible dehydration Time Seen by Provider: 07/15/22 12:37 History of Present Illness HPI narrative: 76-year-old female presenting to the emergency department with nausea, vomiting, diarrhea. Symptom started yesterday. She felt generally unwell, body aches and malaise. Had loose stools, diarrhea. Today, symptoms are much worse. She now feels nauseous, headache. She has not taken any medications yet for body aches or chills. No medication yet for nausea. She has occasional cramping abdominal pain, but usually only before or after bowel movements. She has not checked her temperature, but has chills. Denies known sick exposure, however her grandson had a viral illness last week. She has not had a COVID or flu test. Related Data Home Medications Medication Instructions Recorded Confirmed ferrous gluconate 240 mg (27 mg 240 mg PO DAILY Supplement 12/04/21 07/15/22 iron) tablet bupropion HCl 100 mg tablet 100 mg PO AM Depression 06/30/22 07/15/22 bupropion HCl 100 mg tablet 200 mg PO HS Depression 06/30/22 07/15/22 citalopram 10 mg tablet 10 mg PO DAILY Anxiety 06/30/22 07/10/22 colchicine 0.6 mg capsule 0.6 mg PO DAILY gout 06/30/22 07/10/22 (Mitigare) magnesium oxide 400 mg (241.3 mg 400 mg PO DAILY Supplement 06/30/22 07/10/22 magnesium) tablet methimazole 5 mg tablet 5 mg PO TID hyperthyroidism 06/30/22 07/15/22 primidone 250 mg tablet 250 mg PO HS Seizures 06/30/22 07/15/22 carbidopa 25 mg-levodopa 100 mg 1 tab PO TID Parkinson's 07/01/22 07/15/22 tablet metoclopramide HCl 10 mg tablet 10 mg PO BID acid reflux/nausea 07/01/22 07/10/22 prednisone 5 mg tablet 5 mg PO DAILY Rheumatoid arthritis 07/01/22 07/15/22 Previous Rx's Medication Instructions Recorded ascorbate calcium (vitamin C) 500 500 mg PO DAILY Vitamin 30 days 08/22/21 mg tablet #30 tabs aspirin 81 mg tablet,delayed 81 mg PO DAILY HEART HEALTH 30 08/22/21 release days #30 tabs carvedilol 12.5 mg tablet 18.75 mg PO BID High blood 08/22/21 pressure 30 days #90 tabs cetirizine 10 mg capsule 10 mg PO DAILY Allergies 30 days 08/22/21 #30 caps chlorthalidone 25 mg tablet 25 mg PO DAILY Fluid 30 days #30 08/22/21 tabs cholecalciferol (vitamin D3) 25 1 cap PO BID Supplement 30 days 08/22/21 mcg (1,000 unit) capsule #60 caps cyanocobalamin (vitamin B-12) 1 tab PO DAILY Supplement 30 days 08/22/21 1,000 mcg tablet #30 tabs donepezil 10 mg tablet 10 mg PO HS Memory 30 days #30 tabs 08/22/21 dorzolamide 22.3 mg-timolol 6.8 1 drp ophthalmic (eye) BID Eye 08/22/21 mg/mL eye drops health 30 days ##1 fluticasone propionate 50 2 spry intranasal DAILY Allergies 08/22/21 mcg/actuation nasal 30 days ##1 spray,suspension gabapentin 300 mg capsule 300 mg PO 5XDAY Pain 30 days #150 08/22/21 caps leflunomide 20 mg tablet 20 mg PO DAILY Lupus 30 days #30 08/22/21 tabs memantine 10 mg tablet 10 mg PO BID Memory 30 days #60 08/22/21 tabs montelukast 10 mg tablet 10 mg PO DAILY Allergy symptoms 30 08/22/21 days #30 tabs pantoprazole 40 mg tablet,delayed 40 mg PO DAILY Acid reflux 30 days 08/22/21 release #30 tabs potassium chloride 20 mEq 20 meq PO BID Potassium Supplement 08/22/21 tablet,extended release(part/cryst) 30 days #60 tabs simvastatin 20 mg tablet 20 mg PO HS Cholesterol 30 days 08/22/21 #30 tabs Allergies Allergy/AdvReac Type Severity Reaction Status Date / Time prochlorperazine Allergy Intermediate HALLUCINATI Verified 07/10/22 09:26 [PROCHLORPERAZINE] ONS oxycodone [OXYCODONE] Allergy Unknown HALLUCINATI Verified 07/10/22 09:26 ONS ibuprofen [IBUPROFEN] AdvReac Unknown PT HAS Verified 07/10/22 09:26 RENAL
--- NOTE | 2022-07-15 13:05 | PC.NURSE ---
lab at unable to obtain blood with IV start
[2022-07-15 13:17] LABS: Influenza A, PCR Not Detected (NotDetected); Influenza B, PCR Not Detected (NotDetected)
[2022-07-15 13:32] LABS: Basophils % 0.5 % (0.1-2.0); Eosinophils # 0.4 K/mm3 (0.0-0.4); Eosinophils % 7.6 % (0.1-12.0); Hematocrit 36.6 % (37.0-47.0); Hemoglobin 11.7 g/dL (12.2-16.2); Lymphocytes # 0.6 K/mm3 (0.7-4.5); Lymphocytes % 12.3 % (10-50); Mean Corpuscular HGB Conc 31.9 g/dL (31.8-35.4); Mean Corpuscular Hemoglobin 28.2 pg (27.0-31.2); Mean Corpuscular Volume 88.4 fl (81-99); Mean Platelet Volume 8.5 fl (7.4-10.4); Monocytes # 0.2 K/mm3 (0.1-1.0); Monocytes % 3.5 % (1.7-9.3); Neutrophils # 3.5 K/mm3 (1.8-7.8); Neutrophils % 76.1 % (37.0-80.0); Platelet Count 264 K/mm3 (142-424); Red Blood Count 4.14 M/mm3 (4.20-5.40); Red Cell Distribution Width 17.9 % (11.5-17.5); White Blood Count 4.6 K/mm3 (4.8-10.8)
[2022-07-15 13:39] LABS: Chloride 98 mmol/L (98-107); Potassium 3.2 mmoL/L (3.5-5.1); Sodium 135 mmol/L (136-145)
[2022-07-15 13:41] LABS: Alanine Aminotransferase 16 U/L (12-78); Alkaline Phosphatase 154 U/L (38-126); Aspartate Amino Transferase 35 U/L (14-36); Bilirubin,Total 0.4 mg/dl (0.2-1.3); Blood Urea Nitrogen 18 mg/dl (7-17); Creatinine Clearance Estimated 47 mL/min (50-200); Estimated Glomerular Filt Rate 44 ml/min (>60); GFR (African American) 53 ML/MIN (>60)
[2022-07-15 13:42] LABS: Albumin Level 3.9 g/dl (3.5-5.0); Albumin/Globulin Ratio 1.2 (1.1-1.8); Anion Gap 11.2 mEq/L (5-15); Calcium 8.7 mg/dl (8.4-10.2); Carbon Dioxide 29 mmol/L (22.0-30.0); Globulin 3.2 g/dL (1.3-3.2); Glucose 85 mg/dl (74-100); Lipase 56 U/L (23-300); Total Protein,Serum 7.1 g/dl (6.3-8.2)
[2022-07-15 13:46] LABS: Coronavirus 19, PCR Detected (NotDetected)
--- NOTE | 2022-07-15 14:53 | ECG_ITS ---
APPROVED REPORT Exam: Resting ECG HR:76 bpm ECG Measurements Heart Rate 76 AXES ME 145 P 73 QRSd 82 QRS 54 QT 352 T 107 QTc 382 Conclusion SINUS RHYTHM ANTEROSEPTAL MYOCARDIAL INFARCTION , OF INDETERMINATE AGE [40+ ms Q WAVE IN V1-V4] ABNORMAL ECG UNCONFIRMED REPORT Electronically signed by : Miller Hazel MD 07/16/2022 21:08:00
--- NOTE | 2022-07-15 15:06 | XR_ITS ---
FINAL REPORT CLINICAL HISTORY: cough COMPARISON: June 30, 2022 FINDINGS: The heart size is normal. The mediastinum is within normal limits. There is no acute cardiopulmonary process. There is no pleural effusion. There is no pneumothorax. Postoperative changes are seen in the right shoulder and thoracolumbar spine. IMPRESSION: No acute cardiopulmonary process. Reviewed, Interpreted and Dictated by Vasquez Timmons III, MD Transcribed by Isaac Capellan Authenticated and [facility]
--- NOTE | 2022-07-15 15:51 | PC.NURSE ---
SHARAN DELGADO spoke with Dr. Hazel
--- NOTE | 2022-07-15 15:54 | PC.NURSE ---
notified care management of admission, spoke with rosendo
--- NOTE | 2022-07-15 16:40 | PC.NURSE ---
report called to faiza gallagher rn
--- NOTE | 2022-07-15 17:31 | PC.NURSE ---
arrived to floor by wheelchair for E D
--- NOTE | 2022-07-15 17:50 | EXP.HP ---
History of Present Illness *Admission Date: 07/15/22 *Reason for visit:: Weakness and fatigue *History of present illness: 76-year-old female who has been in the hospital a couple times over the past couple weeks with weakness, viral syndrome. Was doing well at home and we had seen her for a post hospital visit last week, but yesterday she began increasingly weak with some diarrhea and vomiting. She blamed on a virus brought home by her grandson. Her home health care aides brought her to the ER today, she was unable to stand and was given some IV fluids. Her labs were unremarkable but given her significant weakness and her significant and multiple comorbidities she was admitted to observation for further evaluation. [facility] 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 (Updated 07/15/22 @ 17:04 by Lisa Nicholas DO) Carotid bruit Cataract Diastolic dysfunction DVT (deep venous thrombosis) Edema GERD (gastroesophageal reflux disease) Heart murmur HHD (hypertensive heart disease) HLD (hyperlipidemia) HTN (hypertension), benign Palpitations Peripheral arterial disease PVD (peripheral vascular disease) Renal disease Right carotid bruit Surgical History (Updated 07/15/22 @ 16:40 by Leeanne Cam RN) Cataract extraction status, right eye Family History Other Alcoholism Anemia Cancer Coronary artery disease FHx: mental illness Heart attack Hyperlipidemia Hypertension Kidney disease Substance abuse Tuberculosis 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 Smoking Status: Never smoker alcohol intake: never substance use type: denies use current occupational status: retired Travel in the last 8 weeks: Inside the [place] household members: children current occupational exposures/hazards: No Review of Systems Review of Systems Review of systems:: pertinent systems reviewed and negative unless documented below Constitutional Constitutional: Reports headache(s) ENT Ears, Nose, Mouth, and Throat: Denies dizziness and Reports headache(s) *Neurologic Neurologic: Denies dizziness and Reports headache(s) Meds Home Medications and Allergies Home Medications Medication Instructions Recorded Confirmed Type ascorbate calcium (vitamin C) 500 500 mg PO DAILY Vitamin 30 days 08/22/21 07/10/22 Rx mg tablet #30 tabs aspirin 81 mg tablet,delayed 81 mg PO DAILY HEART HEALTH 30 08/22/21 07/10/22 Rx release days #30 tabs carvedilol 12.5 mg tablet 18.75 mg PO BID High blood 08/22/21 07/15/22 Rx pressure 30 days #90 tabs cetirizine 10 mg capsule 10 mg PO DAILY Allergies 30 days 08/22/21 07/15/22 Rx #30 caps chlorthalidone 25 mg tablet 25 mg PO DAILY Fluid 30 days #30 08/22/21 07/10/22 Rx tabs cholecalciferol (vitamin D3) 25 1 cap PO BID Supplement 30 days 08/22/21 07/15/22 Rx mcg (1,000 unit) capsule #60 caps cyanocobalamin (vitamin B-12) 1 tab PO DAILY Supplement 30 days 08/22/21 07/10/22 Rx 1,000 mcg tablet #30 tabs donepezil 10 mg tablet 10 mg PO HS Memory 30 days #30 tabs 08/22/21 07/15/22 Rx dorzolamide 22.3 mg-timolol 6.8 1 drp ophthalmic (eye) BID Eye 08/22/21 07/15/22 Rx mg/mL eye drops health 30 days ##1 fluticasone propionate 50 2 spry intranasal DAILY Allergies 08/22/21 07/15/22 Rx mcg/actuation nasal 30 days ##1 spray,suspension gabapentin 300 mg capsule 300 mg PO 5XDAY Pain 30 days #150 08/22/21 07/15/22 Rx caps leflunomide 20 mg tablet 20 mg PO DAILY Lupus 30 days #30 08/22/21 07/10/22 Rx tabs memantine 10 mg tablet 10 mg PO BID Memory 30 days #60 08/22/21 07/15/22 Rx tabs montelukast 10 mg tablet 10 mg PO DAILY Allergy symptoms 30 08/22/21 07/10/22 Rx days #30 tabs pantoprazole 40 mg tablet,delayed 40 mg PO DAILY Acid reflux 30 days 08/22/21 07/15/22 Rx release #30 tabs potassium chloride 20 mEq 20 meq PO BID Potassium Supplement 08/22/21 07/15/22 Rx tablet,extended release(part/c
[2022-07-16] VITALS: BP 147/66; PULSE 87; RESP 16; TEMP 37; O2SAT 95
[2022-07-16 03:25] VITALS: BMI 28.0
[2022-07-16 03:28] VITALS: BP 131/72; PULSE 91; RESP 18; TEMP 37; O2SAT 98
--- NOTE | 2022-07-16 05:18 | PC.NURSE ---
NO ACUTE CHANGES SINCE PREVIOUS ASSESSMENT. PT HAS NOT RESTED WELL THIS SHIFT. LUNG SOUNDS ARE CLEAR. PT HAS AMBULATED TO THE BATHROOM WITH X1 ASSIST. PT HAS C/O BILATERAL FOOT PAIN THIS SHIFT. PT HAS ALSO HAD 2 LOOSE BM THIS SHIFT. NO C/O NAUSEA OR VOMITING.
[2022-07-16 07:51] LABS: Chloride 103 mmol/L (98-107); Potassium 3.5 mmoL/L (3.5-5.1); Sodium 134 mmol/L (136-145)
[2022-07-16 07:54] LABS: Anion Gap 9.5 mEq/L (5-15); Blood Urea Nitrogen 14 mg/dl (7-17); Calcium 7.8 mg/dl (8.4-10.2); Carbon Dioxide 25 mmol/L (22.0-30.0); Creatinine Clearance Estimated 58 mL/min (50-200); Estimated Glomerular Filt Rate 61 ml/min (>60); GFR (African American) 74 ML/MIN (>60); Glucose 72 mg/dl (74-100)
[2022-07-16 08:00] VITALS: BP 135/69; PULSE 77; RESP 16; TEMP 37; O2SAT 99
--- NOTE | 2022-07-16 08:44 | HMH.PHAINT1 ---
Pharmacy Intervention Comments: MEDICATION RECONCILIATION COMPLETED ON PATIENT USING EXTERNAL FILL HISTORY FROM PHARMACY AND DISCHARGE SUMMARY FROM PREVIOUS ADMISSION. -MALINA BASS, CATHYD
--- NOTE | 2022-07-16 11:55 | HMH.PTEV ---
Physical Therapy Evaluation Rehab PT IP Evaluation Start: 07/15/22 15:54 Freq: ONCE Status: Active Protocol: Document 07/16/22 10:25 MANA (Rec: 07/16/22 11:55 PHOSTEVE [id number]) Subjective/History History History 76 yoaaf adm to [facility] with general weakness, nausea, diarrhea with associated post- covid malaise. She reports she lives alone, but has assistance most of the time. She has no steps to enter the home and is generally independent with all mobility. Subjective Subjective Pt reports she feels much better this am and is very much ready to go back home. Rehab PT IP Eval Objective Appearance Patient Behavior Appropriate Patient Orientation Person,Place,Time Difficulty following instructions none Speech Pattern Clear Ambulation Patient Able to Ambulate Yes Ambulation Observation IP General Gait Pattern Observation No Deviations/Normal Ambulation Distance (feet) 100 Ambulation Assistive Device Rolling Walker Ambulation Ability Independent Balance Ability to Arise Able, w/o using arms Sitting Balance Steady, safe Standing Balance Narrow stance w/o support Dynamic Sitting Balance Ability Normal Dynamic Standing Balance Ability Good Transfers Bed Transfer Ability Independent Chair Transfer Ability Independent Sit to Stand Bed Transfer Ability Independent Sit to Stand Chair Transfer Ability Independent ROM All Extremities PT ROM Status WFL MMT All Extremities PT MMT WFL Rehab PT IP prob,goals,plan Problems Date of Evaluation: 07/16/22 Discharge Plan PT Discharge Plan Pt is appropriate to return home once medically stable, No current inpatient therapy needs. G -code Required No Eval Complexity Eval Charge Codes 70938 - Moderate Complexity PHYSICIAN CERTIFICATION: I certify the specified therapy services for Yoko Pineda Walker are required, authorized, and reviewed every 30 days.
--- NOTE | 2022-07-16 12:05 | EXP.DC.SUM ---
General Admission date:: 07/15/22 Discharge date: 07/16/22 HPI HPI HPI: 76-year-old female who has been in the hospital a couple times over the past couple weeks with weakness, viral syndrome. Was doing well at home and we had seen her for a post hospital visit last week, but yesterday she began increasingly weak with some diarrhea and vomiting. She blamed on a virus brought home by her grandson. Her home health care aides brought her to the ER today, she was unable to stand and was given some IV fluids. Her labs were unremarkable but given her significant weakness and her significant and multiple comorbidities she was admitted to observation for further evaluation. Hospital Course Hospital Course Hospital Course: Patient was admitted, labs were essentially normal. She was given IV fluids overnight. Gabapentin was given last night because of her significant pain. This morning she feels much better and wishes to go home. Nurses did note some diarrhea and she was given 1 dose of Imodium and a PCR stool test was ordered. I will follow this as an outpatient. PT evaluated her and felt that she was 100% independent in her ADL activities. She will be discharged home with her previous home health services and scheduled follow-up in my office. Exam Data for Last 24 hours Vital signs and Labs for Last 24 Hours: Temp Pulse Resp BP Pulse Ox 98.6 F 77 16 135/69 99 07/16/22 08:00 07/16/22 08:00 07/16/22 08:00 07/16/22 08:00 07/16/22 08:00 Laboratory Results - last 24 hr 07/15/22 13:00: SARS-CoV-2 (PCR) Detected A, Influenza A Untype (PCR) Not detected, Influenza Type B (PCR) Not detected 07/15/22 13:16: WBC 4.6 L, RBC 4.14 L, Hgb 11.7 L, Hct 36.6 L, MCV 88.4, MCH 28.2, MCHC 31.9, RDW 17.9 H, Plt Count 264, MPV 8.5, Neut % (Auto) 76.1, Lymph % (Auto) 12.3, [place] % (Auto) 3.5, Eos % (Auto) 7.6, Baso % (Auto) 0.5, Neut # (Auto) 3.5, Lymph # (Auto) 0.6 L, [place] # (Auto) 0.2, Eos # (Auto) 0.4, Baso # (Auto) 0.0 07/15/22 13:16: Sodium 135 L, Potassium 3.2 L, Chloride 98, Carbon Dioxide 29, Anion Gap 11.2, BUN 18 H, Creatinine 1.20 H, Estimated Creat Clear 47, Estimated GFR 44 L, Est GFR ( Amer) 53 L, Glucose 85, Calcium 8.7, Total Bilirubin 0.4, AST 35, ALT 16, Alkaline Phosphatase 154 H, Total Protein 7.1, Albumin 3.9, Globulin 3.2, Albumin/Globulin Ratio 1.2, Lipase 56 07/16/22 06:36: Sodium 134 L, Potassium 3.5, Chloride 103, Carbon Dioxide 25, Anion Gap 9.5, BUN 14, Creatinine 0.90 D, Estimated Creat Clear 58, Estimated GFR 61, Est GFR ( Amer) 74 D, Glucose 72 L, Calcium 7.8 L I & O for Last 24 hours: Intake & Output 07/14/22 07/15/22 07/16/22 07/17/22 11:59 11:59 11:59 11:59 Intake Total 2077 / 2077 Output Total 400 / 400 Balance 1678 / 1678 Weight 164 lb 2 oz Constitutional Constitutional: no acute distress *Routine HEENT Exam Head: Present normocephalic Eye: Present EOMI and PERRL ENT: Present mucous membranes moist *Routine Neck Exam Neck: Present supple; Absent lymphadenopathy *Routine Respiratory Exam Respiratory: Present CTA bilaterally *Routine Cardiovascular Exam Cardiovascular: Present RRR *Routine Abdominal Exam Abdominal: Present soft and normoactive bowel sounds; Absent tenderness *Routine Extremities Exam Extremities: Absent cyanosis, clubbing or edema Comments: Patient has baseline edema which is improved today. She has her lateral deviation and joint deformities of rheumatoid arthritis that are at baseline. *Routine Skin Exam Skin: Present warm; Absent rash *Routine Neurological Exam Neurological: Present alert and oriented X3 Results Data Completed and Pending Labs on day of discharge: Labs from last 24 hours 07/16/22 07/15/22 07/15/22 06:36 13:16 13:16 WBC 4.6 L RBC 4.14 L Hgb 11.7 L Hct 36.6 L MCV 88.4 MCH 28.2 MCHC 31.9 RDW 17.9 H Plt Count 264 MPV 8.5 Neut % (Auto) 76.1 Lymph % (Auto) 12.3 Kenton % (Auto) 3
--- NOTE | 2022-07-16 14:23 | CARE MANAGER ---
Patient discharged home today. She had HH services through [facility] prior to admission. I called and notified HH agency that patient was here in observation status and that she was discharged home today.
--- NOTE | 2022-07-17 14:01 | CARE MANAGER ---
Called and spoke with Mrs. mcintosh, who states that she is doing well. She did not have any new medications at time of discharge. She has been contacted by [facility] to resume services. Patient had no complaints or concerns at this time.
== END 2022-07-16 14:45 | disposition home health service (06) ==
LOC: ER 12:51 → 2ND 16:27
PROVIDERS: Admitting Provider Internal Medicine Adolescent Medicine; Emergency Provider Emergency Medicine; PCP Internal Medicine Adolescent Medicine; Visit Provider Internal Medicine Adolescent Medicine
DX: U07.1 COVID-19 (principal); R53.1 Weakness; E86.0 Dehydration; Z79.899 Other long term (current) drug therapy; I11.9 Hypertensive heart disease without heart failure; I25.10 Atherosclerotic heart disease of native coronary artery without angina pectoris; E78.5 Hyperlipidemia, unspecified; Z20.822 Contact with and (suspected) exposure to COVID-19
CPT/HCPCS: G0378; 36415; 71045; 80048; 80053; 83690; 85025; 93005; 97162; 99285; C9803; J2405; U0003; U0005

== ENCOUNTER → 2022-08-18 12:39 | Outpatient (CLI) | payer MEDICARE, BC, MEDICAID, SELFPAY ==
[2022-08-18 12:56] LABS: Microscopic, Urine URINE MICROSCOPIC (MICROSCOPIC)
[2022-08-18 13:13] LABS: Basophils % 0.4 % (0.1-2.0); Eosinophils # 0.6 K/mm3 (0.0-0.4); Eosinophils % 10.4 % (0.1-12.0); Hematocrit 38.5 % (37.0-47.0); Hemoglobin 11.7 g/dL (12.2-16.2); Lymphocytes # 1.4 K/mm3 (0.7-4.5); Lymphocytes % 22.7 % (10-50); Mean Corpuscular HGB Conc 30.3 g/dL (31.8-35.4); Mean Corpuscular Volume 92.6 fl (81-99); Mean Platelet Volume 8.6 fl (7.4-10.4); Monocytes # 0.4 K/mm3 (0.1-1.0); Monocytes % 5.8 % (1.7-9.3); Neutrophils # 3.6 K/mm3 (1.8-7.8); Neutrophils % 60.7 % (37.0-80.0); Platelet Count 267 K/mm3 (142-424); Red Blood Count 4.16 M/mm3 (4.20-5.40); Red Cell Distribution Width 18.9 % (11.5-17.5)
[2022-08-18 13:35] LABS: Appearance,Urine CLEAR (Clear); Bilirubin,Urine Negative (Negative); Blood, Urine Negative (Negative); Color,Urine YELLOW (Yellow); Glucose,Urine (UA) Negative (Negative); Ketones,Urine Negative (Negative); Leukocyte Esterase,Urine Negative (Negative); Nitrate,Urine Negative (Negative); Protein,Urine Negative (Negative); Urobilinogen,Urine 0.2 EU/dl (0.2)
[2022-08-18 13:42] LABS: Chloride 97 mmol/L (98-107); Potassium 3.5 mmoL/L (3.5-5.1); Sodium 132 mmol/L (136-145)
[2022-08-18 13:44] LABS: Alanine Aminotransferase 12 U/L (12-78); Aspartate Amino Transferase 32 U/L (14-36); Bilirubin,Total 0.2 mg/dl (0.2-1.3); Blood Urea Nitrogen 17 mg/dl (7-17); Erythrocyte Sedimentation Rate 45 mm/hr (0-30); Estimated Glomerular Filt Rate 34 ml/min (>60); GFR (African American) 41 ML/MIN (>60)
[2022-08-18 13:45] LABS: Albumin Level 4.1 g/dl (3.5-5.0); Albumin/Globulin Ratio 1.5 (1.1-1.8); Alkaline Phosphatase 148 U/L (38-126); Anion Gap 10.5 mEq/L (5-15); Calcium 9.9 mg/dl (8.4-10.2); Carbon Dioxide 28 mmol/L (22.0-30.0); Globulin 2.8 g/dL (1.3-3.2); Glucose 103 mg/dl (74-100); Total Protein,Serum 6.9 g/dl (6.3-8.2)
[2022-08-18 13:49] LABS: Bacteria,Urine Trace /lpf
[2022-08-18 14:00] LABS: Uric Acid 6.9 mg/dl (2.5-6.2)
[2022-08-18 14:05] LABS: C-Reactive Protein 19.7 mg/L (0-4)
[2022-08-19 09:37] LABS: Complement C3 166 mg/dL (82-167)
[2022-09-05 20:27] LABS: dsDNA AB Crithidia Negative
== END ==
PROVIDERS: PCP Internal Medicine Adolescent Medicine; Visit Provider Nurse Practitioner Family
DX: I27.20 Pulmonary hypertension, unspecified (principal); I10 Essential (primary) hypertension; I73.00 Raynaud's syndrome without gangrene; M25.551 Pain in right hip; M32.9 Systemic lupus erythematosus, unspecified; M48.00 Spinal stenosis, site unspecified; D64.9 Anemia, unspecified
CPT/HCPCS: 36415; 80053; 81001; 82306; 84550; 85025; 85651; 86140; 86161; 86225

== ENCOUNTER → 2022-08-18 13:10 | Outpatient (POV) | payer MEDICARE, BC, MEDICAID, SELFPAY | PROVIDERS: Visit Provider Dermatology | DX: Z00.00 Encounter for general adult medical examination without abnormal findings (principal) ==

== ENCOUNTER 2022-08-23 12:42 | Observation (INO) | payer MEDICARE, BC, MEDICAID, SELFPAY ==
[2022-08-23] VITALS (17 sets, daily range): BP systolic 103–195; BP diastolic 57–89; PULSE 55–85; RESP 8–20; TEMP 36.6–36.9; O2SAT 90–98; BMI 27.8
--- NOTE | 2022-08-23 12:51 | ECG_ITS ---
APPROVED REPORT Exam: Resting ECG HR:71 bpm ECG Measurements Heart Rate 71 AXES WI 149 P 77 QRSd 82 QRS 77 QT 371 T 89 QTc 394 Conclusion SINUS RHYTHM POSSIBLE LEFT ATRIAL ENLARGEMENT [-0.1mV P-WAVE IN V1/V2] SEPTAL MYOCARDIAL INFARCTION , OF INDETERMINATE AGE [40+ ms Q WAVE IN V1/V2] ABNORMAL ECG UNCONFIRMED REPORT Electronically signed by : Miller Hazel MD 08/24/2022 20:02:13
--- NOTE | 2022-08-23 13:03 | XR_ITS ---
PROCEDURE INFORMATION: Exam: XR Chest Exam date and time: 08/23/2022 1:43 PM Age: 76 years old Clinical indication: Pain; Chest pressure; Additional info: Chest ana n TECHNIQUE: Imaging protocol: Radiologic exam of the chest. Views: 1 view. COMPARISON: CR XR CHEST PORTABLE 07/15/2022 3:23 PM FINDINGS: Lungs: Stable nodular calcifications within the mediastinum and right midlung zone secondary to old granulomatous disease.. No consolidation. No significant interval changes. Pleural spaces: Unremarkable. No pleural effusion. No pneumothorax. Heart/Mediastinum: Unremarkable. No cardiomegaly. Bones/joints: Unrema previous spinal instrumentation lower thoracic and upper lumbar spine otherwise osseous structures are unremarkable. IMPRESSION: Stable chest. No active disease.
--- NOTE | 2022-08-23 13:39 | HMH.EDCP ---
Discharge Plan Disposition Patient Disposition: Admitted As Inpatient Clinical Impressions Clinical Impression: Acute angina Discharge ED Provider: Layla Ace Chest Pain HPI General Chief Complaint: Chest Pain Stated Complaint: Hurting in stomach Time Seen by Provider: 08/23/22 17:57 Mode of Arrival: Wheelchair Source of Information: Patient Limitations: No Limitations Description of Symptoms (Recalled from ER Triage Doc. by RN): Pt c/o midsternal area pain that radiates through to her back. Pt reports pain began 3 days ago and gets worse when eating or drinking. Pt statse she feels like she has indegestion all the time. Pt also reports nausea. History of Present Illness HPI narrative: Solitario is a 76 yo female w/ PMH for HTN, CAD, HLD presenting to the emergency department for chest pain. Patient complains of mid-sternal chest pain, radiates to her shoulder. Patient reports exacerbated by eating and drinking. Patient also reports nausea but denies diaphoresis. No fevers, cough or other infectious like symptoms. She denies any trauma to chest. No LE swelling or pain. No hx of blood clots. No blood thinners. She denies hx of [place], however her son at bedside reports that a few months prior she had mini heart attack. complaint: chest pain Onset (ago): hour(s) Duration: constant Activity at onset: during rest Pain location: substernal Severity: severe Severity scale (1-10): 10 Quality: sharp Pain radiation: LUE Exacerbating factors: eating Associated symptoms: nausea Risk Factors for CAD: Hypertension, Hypercholesterolemia and Family Hx of CAD Treatments prior to or on arrival for Cardiac Chest Pain: none KWADWO Score for Non-Stemi Age of Patient: 70-79 years old Heart Rate: 70-89 bpm Systolic Blood Pressure: 140-159 mmHg Serum Creatinine: 0.40-0.79 mg/dl CHF Killip Class: I-No CHF Other Risk Factors: None Non-Stemi Risk Score: 112 Related Data Home Medications Medication Instructions Recorded Confirmed ferrous gluconate 240 mg (27 mg 240 mg PO DAILY Supplement 12/04/21 08/24/22 iron) tablet bupropion HCl 100 mg tablet 100 mg PO AM Depression 06/30/22 08/23/22 bupropion HCl 100 mg tablet 200 mg PO HS Depression 06/30/22 08/23/22 colchicine 0.6 mg capsule 0.6 mg PO DAILY gout 06/30/22 08/24/22 (Mitigare) methimazole 5 mg tablet 5 mg PO TID hyperthyroidism 06/30/22 08/23/22 primidone 250 mg tablet 250 mg PO HS Tremors 06/30/22 08/23/22 carbidopa 25 mg-levodopa 100 mg 1 tab PO TID Parkinson's 07/01/22 08/24/22 tablet metoclopramide HCl 10 mg tablet 10 mg PO BID acid reflux/nausea 07/01/22 08/24/22 prednisone 5 mg tablet 5 mg PO DAILY Rheumatoid arthritis 07/01/22 08/23/22 bumetanide 1 mg tablet 1 mg PO DAILY Fluid 08/24/22 08/24/22 carvedilol 6.25 mg tablet 18.75 mg PO BID Hypertension 08/24/22 08/24/22 chlorthalidone 25 mg tablet 25 mg PO DAILY Fluid 08/24/22 08/24/22 citalopram 10 mg tablet 10 mg PO DAILY MOOD 08/24/22 08/24/22 gabapentin 300 mg capsule 300 mg PO QID Pain 08/24/22 08/24/22 hydrocortisone 2.5 % topical cream 1 applic topical BID Skin condition 08/24/22 08/24/22 meclizine 25 mg tablet 25 mg PO TIDP PRN Dizziness 08/24/22 08/24/22 Previous Rx's Medication Instructions Recorded ascorbate calcium (vitamin C) 500 500 mg PO DAILY Vitamin 30 days 08/22/21 mg tablet #30 tabs aspirin 81 mg tablet,delayed 81 mg PO DAILY HEART HEALTH 30 08/22/21 release days #30 tabs cetirizine 10 mg capsule 10 mg PO DAILY Allergies 30 days 08/22/21 #30 caps cholecalciferol (vitamin D3) 25 1 cap PO BID Supplement 30 days 08/22/21 mcg (1,000 unit) capsule #60 caps cyanocobalamin (vitamin B-12) 1 tab PO DAILY Supplement 30 days 08/22/21 1,000 mcg tablet #30 tabs donepezil 10 mg tablet 10 mg PO HS Memory 30 days #30 tabs 08/22/21 dorzolamide 22.3 mg-timolol 6.8 1 drp ophthalmic (eye) BID Eye 08/22/21 mg/mL eye drops health 30 days ##1 fluticasone propionate 50 2 spry intranasal DAILY Allergies 08/22/21 mcg/actuatio
[2022-08-23 14:03] LABS: Chloride 95 mmol/L (98-107)
[2022-08-23 14:04] LABS: Sodium 130 mmol/L (136-145)
[2022-08-23 14:06] LABS: Alanine Aminotransferase 7 U/L (12-78); Aspartate Amino Transferase 26 U/L (14-36); Blood Urea Nitrogen 22 mg/dl (7-17); Creatinine Clearance Estimated 34 mL/min (50-200); Estimated Glomerular Filt Rate 29 ml/min (>60); GFR (African American) 36 ML/MIN (>60)
[2022-08-23 14:07] LABS: Albumin/Globulin Ratio 1.3 (1.1-1.8); Alkaline Phosphatase 129 U/L (38-126); Bilirubin,Total 0.2 mg/dl (0.2-1.3); Calcium 9.9 mg/dl (8.4-10.2); Carbon Dioxide 31 mmol/L (22.0-30.0); Globulin 3.2 g/dL (1.3-3.2); Glucose 84 mg/dl (74-100); Total Protein,Serum 7.2 g/dl (6.3-8.2)
[2022-08-23 14:09] LABS: Basophils % 0.7 % (0.1-2.0); Eosinophils # 0.4 K/mm3 (0.0-0.4); Eosinophils % 6.7 % (0.1-12.0); Hematocrit 36.3 % (37.0-47.0); Hemoglobin 11.5 g/dL (12.2-16.2); Lymphocytes # 1.2 K/mm3 (0.7-4.5); Lymphocytes % 21.6 % (10-50); Mean Corpuscular HGB Conc 31.8 g/dL (31.8-35.4); Mean Corpuscular Hemoglobin 28.1 pg (27.0-31.2); Mean Corpuscular Volume 88.5 fl (81-99); Mean Platelet Volume 8.6 fl (7.4-10.4); Monocytes # 0.4 K/mm3 (0.1-1.0); Monocytes % 7.1 % (1.7-9.3); Neutrophils # 3.5 K/mm3 (1.8-7.8); Platelet Count 283 K/mm3 (142-424); Red Cell Distribution Width 18.6 % (11.5-17.5); White Blood Count 5.4 K/mm3 (4.8-10.8)
[2022-08-23 14:19] LABS: Troponin I < 0.01 ng/ml (0.00-0.034)
--- NOTE | 2022-08-23 16:11 | PC.NURSE ---
ER wanting pt to have another nitro sL tablet, notified ER first nitro dropped pt bp from 149 sbp to 103 sbp pt current bp is 112/67 ER states okay to give one nitro and cycle bp frequently
--- NOTE | 2022-08-23 16:26 | PC.NURSE ---
Called dye range operator cloth to page Dr Turner, to consult on patient, Dr turner called and talking to Dr Ace now
--- NOTE | 2022-08-23 16:40 | ECG_ITS ---
APPROVED REPORT Exam: Resting ECG HR:62 bpm ECG Measurements Heart Rate 62 AXES MI 161 P 69 QRSd 85 QRS 73 QT 409 T 72 QTc 415 Conclusion SINUS RHYTHM POSSIBLE LEFT ATRIAL ENLARGEMENT [-0.1mV P-WAVE IN V1/V2] ANTEROSEPTAL MYOCARDIAL INFARCTION -- Old ABNORMAL ECG UNCONFIRMED REPORT Electronically signed by : Miller Hazel MD 08/24/2022 20:01:26
[2022-08-23 17:06] LABS: Troponin I < 0.01 ng/ml (0.00-0.034)
--- NOTE | 2022-08-23 17:23 | PC.NURSE ---
notified lab of PTT order
--- NOTE | 2022-08-23 17:25 | PC.NURSE ---
[facility] C[facility]IER NOTIFIED OF NEED FOR ADMISSION
--- NOTE | 2022-08-23 17:33 | PC.NURSE ---
1720- spoke with Kaushik (pharmacy access consultant) notified him Dr. Yo wants heparin bolus of 80 units/kg for pt per ER MD and wants pt started on a heparin drip. Kaushik gave dosing 5,800 units IV once for bolus and states to start pt on Heparin drip at 900 units/hr. states to make sure a baseline ptt is ordered for pt.
[2022-08-23 17:50] LABS: Coronavirus 19, PCR Not Detected (NotDetected); Influenza A, PCR Not Detected (NotDetected); Influenza B, PCR Not Detected (NotDetected)
[2022-08-23 17:58] LABS: PTT Heparin (inpatient only) 25.3 Seconds (23.6-34.0)
--- NOTE | 2022-08-23 18:23 | PC.NURSE ---
report called to brianne hazel on second floor, pt will hold in ER until covid swab is resulted
--- NOTE | 2022-08-23 18:55 | PC.NURSE ---
pt arrived to floor via stretcher at this time.
[2022-08-23 21:06] LABS: Troponin I < 0.01 ng/ml (0.00-0.034)
[2022-08-24] VITALS (22 sets, daily range): BP systolic 104–186; BP diastolic 44–81; PULSE 65–80; RESP 14–18; TEMP 36.4–36.9; O2SAT 91–99; BMI 27.8
--- NOTE | 2022-08-24 01:32 | PC.NURSE ---
faiza from lab called to report critical ptt of 200, name and verified. notified nightwatch, heparin gtt was decreased from 900 to 700 units/hr, another ptt will be drawn at 0700. MD Hazel notified.
--- NOTE | 2022-08-24 05:12 | PC.NURSE ---
notified MD Hazel of pt chest pain. ordered to give morphine, pt stated that she thins she may be allergic to morphine, let MD Hazel know this, tramadol was ordered instead. pt is also complaining of tingling in arm and pain on left side of face, MD notified, no new orders at this time.
--- NOTE | 2022-08-24 07:01 | HMH.PHAHEP ---
[facility] Pharmacy Heparin Dosing Demographic Data Admission date:: 08/23/22 Date: 08/24/22 Time: 07:01 Allergies Allergy/AdvReac Type Severity Reaction Status Date / Time prochlorperazine Allergy Intermediate HALLUCINATI Verified 07/10/22 09:26 [PROCHLORPERAZINE] ONS oxycodone [OXYCODONE] Allergy Unknown HALLUCINATI Verified 07/10/22 09:26 ONS ibuprofen [IBUPROFEN] AdvReac Unknown PT HAS Verified 07/10/22 09:26 RENAL FAILURE Height: 1.63 m Weight: 73.8 kg Indication Medication therapy:: Heparin Current Active Problems (Updated 08/24/22 @ 10:59 by Bailee Andrade APRN) Unstable angina (Acute) Epigastric pain (Acute) Acute angina (Acute) CAD (coronary artery disease) (Chronic) Renal insufficiency (Acute) Physical debility (Chronic) Hyperlipemia (Acute) Peripheral arterial disease (Chronic) Diastolic dysfunction (Chronic) HHD (hypertensive heart disease) (Chronic) CVA?: No Bleeding problem?: No Kidney disease?: No SC?: No Desired PTT range:: 50-75 seconds Labs Anticoagulation Lab Results:: 08/23/22 13:00 Hgb 11.5 L Hct 36.3 L Plt Count 283 Monitoring Dose Monitor 1: Date: 08/23/22 Time: 17:18 PTT Result:: 25.3 (BASELINE) Infusion Rate:: 900 UNITS/HR Comment:: 5,[address] BROOKS 80 UNIT/KG BOLUS Dose Monitor 2: Date: 08/24/22 Time: 00:40 PTT Result:: 200.0 Infusion Rate:: DECREASE RATE TO 700 UNITS/HR Dose Monitor 3: Date: 08/24/22 Time: 07:15 PTT Result:: 101.8 Infusion Rate:: DECREASE RATE TO 500 UNITS/HR Dose Monitor 4: Date: 08/24/22 Time: 13:00 Comment:: HEPARIN DRIP STOPPED PER [employer] CORE LAYER Core Measures Is INR > or = 2 at discharge?: No Most Recent Labs:: Laboratory Results - last 24 hr 08/23/22 13:00: WBC 5.4, RBC 4.10 L, Hgb 11.5 L, Hct 36.3 L, MCV 88.5, MCH 28.1, MCHC 31.8, RDW 18.6 H, Plt Count 283, MPV 8.6, Neut % (Auto) 64.0, Lymph % (Auto) 21.6, Valley % (Auto) 7.1, Eos % (Auto) 6.7, Baso % (Auto) 0.7, Neut # (Auto) 3.5, Lymph # (Auto) 1.2, Valley # (Auto) 0.4, Eos # (Auto) 0.4, Baso # (Auto) 0.0 08/23/22 13:00: Sodium 130 L, Potassium 3.0 L, Chloride 95 L, Carbon Dioxide 31 H, Anion Gap 7.0, BUN 22 H, Creatinine 1.70 H, Estimated Creat Clear 34, Estimated GFR 29 L, Est GFR ( Amer) 36 L, Glucose 84, Calcium 9.9, Total Bilirubin 0.2, AST 26, ALT 7 L, Alkaline Phosphatase 129 H, Troponin I < 0.01, Total Protein 7.2, Albumin 4.0, Globulin 3.2, Albumin/Globulin Ratio 1.3 08/23/22 13:00: APTT 25.3 08/23/22 16:25: Troponin I < 0.01 08/23/22 17:40: SARS-CoV-2 (PCR) Not detected, Influenza A Untype (PCR) Not detected, Influenza Type B (PCR) Not detected 08/23/22 20:28: Troponin I < 0.01 08/24/22 00:40: APTT 200.0 H* Were Heparin and Warfarin started on the same day?: No If not, why?: STOPPED PER [employer] L[employer]ER
--- NOTE | 2022-08-24 07:20 | HMH.PHAINT1 ---
Pharmacy Intervention Comments: MEDICATION RECONCILIATION COMPLETED ON PATIENT USING EXTERNAL FILL HISTORY FROM PHARMACY AND DISCHARGE SUMMARY FROM PREVIOUS ADMISSION. -MALINA BASS, CATHYD
[2022-08-24 07:37] LABS: Basophils % 0.6 % (0.1-2.0); Eosinophils # 0.4 K/mm3 (0.0-0.4); Eosinophils % 8.3 % (0.1-12.0); Hematocrit 33.2 % (37.0-47.0); Hemoglobin 10.7 g/dL (12.2-16.2); Lymphocytes # 2.1 K/mm3 (0.7-4.5); Lymphocytes % 39.8 % (10-50); Mean Corpuscular HGB Conc 32.2 g/dL (31.8-35.4); Mean Corpuscular Hemoglobin 28.4 pg (27.0-31.2); Mean Corpuscular Volume 88.3 fl (81-99); Mean Platelet Volume 8.4 fl (7.4-10.4); Monocytes # 0.4 K/mm3 (0.1-1.0); Monocytes % 7.2 % (1.7-9.3); Neutrophils # 2.3 K/mm3 (1.8-7.8); Neutrophils % 44.1 % (37.0-80.0); Platelet Count 253 K/mm3 (142-424); Red Blood Count 3.76 M/mm3 (4.20-5.40); White Blood Count 5.2 K/mm3 (4.8-10.8)
[2022-08-24 07:43] LABS: Chloride 97 mmol/L (98-107); Sodium 129 mmol/L (136-145)
[2022-08-24 07:46] LABS: Blood Urea Nitrogen 19 mg/dl (7-17); Creatinine Clearance Estimated 44 mL/min (50-200); Estimated Glomerular Filt Rate 40 ml/min (>60); GFR (African American) 48 ML/MIN (>60)
[2022-08-24 07:47] LABS: Anion Gap 4.8 mEq/L (5-15); Calcium 9.1 mg/dl (8.4-10.2); Carbon Dioxide 30 mmol/L (22.0-30.0); Glucose 79 mg/dl (74-100)
[2022-08-24 07:48] LABS: Potassium 2.8 mmoL/L (3.5-5.1)
[2022-08-24 08:04] LABS: INR 1.12 (0.9-1.1)
[2022-08-24 08:09] LABS: PTT Heparin (inpatient only) 101.8 Seconds (23.6-34.0)
--- NOTE | 2022-08-24 08:10 | PC.NURSE ---
pharmacy called to decrease heparin gtt to 10 mL/hr at this time, gtt changed
--- NOTE | 2022-08-24 08:32 | EXP.HP ---
History of Present Illness *Admission Date: 08/23/22 *Reason for visit:: Epigastric pain *History of present illness: 76-year-old female with multiple medical problems including chronic kidney disease, history of coronary disease, chronic arthritis, chronic rheumatoid arthritis with lupus currently on immunosuppressive therapy who has had multiple exacerbations of her multiple diseases over the past year or 2. She was feeling fairly good yesterday morning but was running a little late for Wednesday school and quickly ate a piece of toast with some apple butter and then her medicines. She noticed that she was having significant problems swallowing and had pain with swallowing. She actually notes that she had this pain over the past 2 to 3 days and it got little worse yesterday. She does not give a history of exertional worsening with the pain but simply with swallowing. She did have some breathing issues with some shortness of air and her family brought her to the emergency department last night. In the emergency department concern was raised for unstable angina and she was admitted to hospital on a heparin drip for cardiology consultation. She notes this morning that she feels good except for swallowing discomfort and wishes to go home. [facility] Disclaimer: The information contained in this section may have been updated after the patient was seen, as this information can be updated by other users. 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 Carotid bruit Cataract Diastolic dysfunction DVT (deep venous thrombosis) Edema GERD (gastroesophageal reflux disease) Heart murmur HHD (hypertensive heart disease) HLD (hyperlipidemia) HTN (hypertension), benign Palpitations Peripheral arterial disease PVD (peripheral vascular disease) Renal disease Right carotid bruit Surgical History Cataract extraction status, right eye Family History Other Alcoholism Anemia Cancer Coronary artery disease FHx: mental illness Heart attack Hyperlipidemia Hypertension Kidney disease Substance abuse Tuberculosis 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 Smoking Status: Never smoker alcohol intake: never substance use type: denies use current occupational status: retired Travel in the last 8 weeks: Inside the [place] household members: children current occupational exposures/hazards: No Review of Systems Review of Systems Review of systems:: pertinent systems reviewed and negative unless documented below Meds Home Medications and Allergies Home Medications Medication Instructions Recorded Confirmed Type ascorbate calcium (vitamin C) 500 500 mg PO DAILY Vitamin 30 days 08/22/21 08/23/22 Rx mg tablet #30 tabs aspirin 81 mg tablet,delayed 81 mg PO DAILY HEART HEALTH 30 08/22/21 08/23/22 Rx release days #30 tabs cetirizine 10 mg capsule 10 mg PO DAILY Allergies 30 days 08/22/21 08/23/22 Rx #30 caps cholecalciferol (vitamin D3) 25 1 cap PO BID Supplement 30 days 08/22/21 08/24/22 Rx mcg (1,000 unit) capsule #60 caps cyanocobalamin (vitamin B-12) 1 tab PO DAILY Supplement 30 days 08/22/21 08/24/22 Rx 1,000 mcg tablet #30 tabs donepezil 10 mg tablet 10 mg PO HS Memory 30 days #30 tabs 08/22/21 08/23/22 Rx dorzolamide 22.3 mg-timolol 6.8 1 drp ophthalmic (eye) BID Eye 08/22/21 08/23/22 Rx mg/mL eye drops health 30 days ##1 fluticasone propionate 50 2 spry intranasal DAILY Allergies 08/22/21 08/24/22 Rx mcg/actuation nasal 30 days ##1 spray,suspension leflunomide 20 mg tablet 20 mg PO DAILY Lupus 30 days #30 08/22/21 08/23/22 Rx tabs memantine 10 mg tablet 10 mg PO BID Memory 30 days #60 08/22/21 08/23/22 Rx tabs montelukast 10 mg tablet 10 mg PO DAILY Allergy symptoms 30 08/22/21 08/23/22 Rx days #30 tabs pantoprazole 40 mg tablet,rai
--- NOTE | 2022-08-24 10:54 | EXP.CARD.CON ---
History of Present Illness History of Present Illness Consult date: 08/24/22 Requesting physician: Miller Hazel Consult reason: chest pain Chief complaint: chest pain History of present illness: This is a 76-year-old black female who presented to the emergency department complaints of chest pain. The patient reports that she has had chest pain for approximately 3 days. She states that this is a severe pain in the central aspect of her chest that is radiating to her back into her left arm and causing numbness in the fingers of her left hand. She states that this is a severe 10 out of 10 pain. It is associated with nausea. The patient states that this occurs with rest and exertion. Eating and swallowing food makes her symptoms worse. Nothing really improves the pain per the patient's report. However when she was in the emergency department her pain did improve with nitroglycerin initially but then started to worsen again while she was in the emergency department. The patient was started on a heparin drip and admitted to the hospital. The patient has a known history of coronary artery disease with a 50% LAD lesion in 2014. She states that she had not had any chest pain until approximately 3 days ago. She states that she feels miserable and had originally reported that she was ready to go home but she states that she only said this because she said she could be miserable at home if no one was on a figure out what was going on with her. The patient has been offered left cardiac catheterization today. [facility] Disclaimer: The information contained in this section may have been updated after the patient was seen, as this information can be updated by other users. 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 (Updated 08/24/22 @ 10:59 by Bailee Andrade APRN) Carotid bruit Cataract Diastolic dysfunction DVT (deep venous thrombosis) Edema GERD (gastroesophageal reflux disease) Heart murmur HHD (hypertensive heart disease) HLD (hyperlipidemia) HTN (hypertension), benign Palpitations Peripheral arterial disease PVD (peripheral vascular disease) Renal disease Right carotid bruit Unstable angina Surgical History Cataract extraction status, right eye Family History Other Alcoholism Anemia Cancer Coronary artery disease FHx: mental illness Heart attack Hyperlipidemia Hypertension Kidney disease Substance abuse Tuberculosis 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 Smoking Status: Never smoker alcohol intake: never substance use type: denies use current occupational status: retired Travel in the last 8 weeks: [place] the [place] household members: children current occupational exposures/hazards: No Review of Systems Review of Systems Review of systems:: pertinent systems reviewed and negative unless documented below Constitutional Constitutional: Reports system reviewed and no additional complaints, except as documented Eyes Eyes: Reports system reviewed and no additional complaints, except as documented ENT Ears, Nose, Mouth, and Throat: Reports system reviewed and no additional complaints, except as documented and Reports dysphagia *Cardiovascular Cardiovascular: Reports system reviewed and no additional complaints, except as documented, Reports as per HPI, Reports chest pain, Reports chest pain at rest, Reports chest pain with activity and Reports radiating jaw, neck or arm pain *Respiratory Respiratory: Reports system reviewed and no additional complaints, except as documented *Gastrointestinal Gastrointestinal: Reports system reviewed and no additional complaints, except as documented, Reports dysphagia and Reports nausea *Musculoskeletal Musculoskeletal: Reports system reviewed and no additional complaints, except as documented Integumentary/Breasts Skin/Breast: Reports system reviewed and no additiona
--- NOTE | 2022-08-24 11:01 | IR_ITS ---
APPROVED REPORT Patient Location: Inpatient Machine [facility] Winder: LANDON Greene RT (R) PROCEDURES Left heart catheterization Left ventriculogram Selective coronary angiogram Intravascular ultrasound of the proximal LAD Drug-eluting stent deployment to the proximal LAD Bilateral selective renal angiography Catheter placement in the right common iliac artery Right common iliac artery retrograde angiogram INDICATION Suspected unstable angina with abnormal EKG with nondiagnostic yet concerning ST elevation in noncontiguous leads, Coronary artery disease with a proximal LAD MLA of 3.3 mm???, Chronic renal failure creatinine 1.7, Suspect renovascular hypertension with renal artery stenosis, Peripheral artery disease with atherosclerosis in the right common iliac artery(patient reports previous during previous heart catheterization chief scientist was unable to advance the catheter beyond the right common iliac artery thereby necessitating left groin access for angiography, the J-wire did hang up in the right common iliac artery however with catheter manipulation I was able to easily maneuver the catheter through the iliofemoral vasculature. Under fluoroscopy calcium atherosclerosis was identified therefore angiography was performed) Informed consent was obtained prior to the procedure. COMPLICATIONS None Estimated Blood Loss: Less than 10 mls TECHNIQUE 1% lidocaine used anesthetize the right groin the right femoral artery was accessed via the Salinger technique and a 4 Estonian sheath was placed in the right femoral artery. A JL 4 guide catheter was manipulated through the right common iliac artery due to the wire not passing. After the catheter passed many exchange technique was used to exchanged out the diagnostic and interventional catheters. A JR4 catheter was then used to perform left heart catheterization left ventriculogram and right coronary artery angiography. The JR4 catheter was used to perform bilateral selective renal angiography. The catheter was brought back into the right common iliac artery right common iliac artery retrograde angiography was performed. At the end of the procedure therapeutic heparin was administered and the 4 Estonian sheath was exchanged for a 6 Estonian sheath. A Poppa guide catheter was placed in the left main artery and a Choice PT extra-support wire was placed into the LAD. A napkin ring stenosis was identified during angiography however intravascular ultrasound was performed to make sure this was not telescoping or angiographic ambiguity. The intravascular ultrasound probe was then advanced following therapeutic heparin with therapeutic ACT and as suspected by angiography the proximal LAD stenosis was critical with an MLA of 3.3 mm???. Because of this a 4 mm x 18 mm resolute Kensal stent was deployed at 20 jack in the proximal LAD reducing the severe stenosis to 0%. JULIÁN-3 flow was present before and after the procedure. At the end the procedure the apparatus was removed the groin is reprepped closure change sheath was removed and hemostasis was achieved using Perclose device patient was transferred to the postop holding area stable condition ANGIOGRAPHIC RESULTS The left main artery Normal The left anterior descending artery Has a proximal napkin ring 90% stenosis best visualized by frame to frame analysis. The remaining vessel is widely patent The circumflex artery Large dominant and normal The right coronary artery Vestigial normal The BENITES ventriculogram reveals Hyperdynamic ejection fraction 70% The left ventricular end-diastolic pressure 20 mmHg Right renal artery singular and normal Left renal artery singular with an ostial 10 to 20% stenosis Right common kamilla
[2022-08-24 13:13] LABS: CATHL Activated Clotting Time 313 SEC (74-125)
--- NOTE | 2022-08-24 17:41 | PC.NURSE ---
pt to clinical lab assistant this shift, right femoral cath site, dressing in place, C/D/I, HR 65-80, BP 126-166, has not complained of chest pain since she has been up from cath, BLE edema noted, remains on room air with O2 sats 93-99%
[2022-08-24 18:18] LABS: POC Glucose,Bedside 69 (70-110)
[2022-08-25] VITALS: BP 97/52; PULSE 67; RESP 17; TEMP 36.4; O2SAT 97
[2022-08-25 00:07] LABS: POC Glucose,Bedside 139 (70-110)
[2022-08-25 04:00] VITALS: BP 109/45; PULSE 63; RESP 17; TEMP 36.8; O2SAT 98
[2022-08-25 05:00] VITALS: BMI 28.2
[2022-08-25 06:11] LABS: POC Glucose,Bedside 93 (70-110)
--- NOTE | 2022-08-25 06:35 | PC.NURSE ---
Pt has rested well since taking over pt care at 0100. Pt cath site drsg remains unchanged with scant blood. Pt remains on RA. Pt assisted to BR with stand by assist and cane without issues.
--- NOTE | 2022-08-25 07:00 | US_ITS ---
FINAL REPORT CLINICAL HISTORY: aaa screening, R common iliac artery aneurysm FINDINGS: Sonographic images were obtained of the abdominal aorta. The abdominal aorta measures up to 1.7 cm in greatest dimensions. The common iliac arteries are within normal limits. IMPRESSION: No evidence of aneurysm. Reviewed, Interpreted and Dictated by Vasquez Timmons III, MD Transcribed by Isaac Capellan Authenticated and [facility]
[2022-08-25 07:03] LABS: Basophils % 0.4 % (0.1-2.0); Eosinophils # 0.4 K/mm3 (0.0-0.4); Eosinophils % 8.5 % (0.1-12.0); Hemoglobin 10.1 g/dL (12.2-16.2); Lymphocytes # 1.5 K/mm3 (0.7-4.5); Lymphocytes % 28.8 % (10-50); Mean Corpuscular HGB Conc 32.5 g/dL (31.8-35.4); Mean Corpuscular Volume 89.5 fl (81-99); Mean Platelet Volume 8.8 fl (7.4-10.4); Monocytes # 0.4 K/mm3 (0.1-1.0); Monocytes % 7.3 % (1.7-9.3); Neutrophils # 2.9 K/mm3 (1.8-7.8); Platelet Count 234 K/mm3 (142-424); Red Blood Count 3.47 M/mm3 (4.20-5.40); White Blood Count 5.2 K/mm3 (4.8-10.8)
[2022-08-25 07:40] LABS: Chloride 98 mmol/L (98-107); Potassium 3.1 mmoL/L (3.5-5.1); Sodium 127 mmol/L (136-145)
[2022-08-25 07:42] LABS: Alanine Aminotransferase 7 U/L (12-78); Aspartate Amino Transferase 24 U/L (14-36); Bilirubin,Unconjugated 0.1 mg/dL (0.0-1.1); Blood Urea Nitrogen 16 mg/dl (7-17); Creatinine Clearance Estimated 42 mL/min (50-200); Estimated Glomerular Filt Rate 37 ml/min (>60); GFR (African American) 44 ML/MIN (>60)
[2022-08-25 07:43] LABS: Albumin Level 3.1 g/dl (3.5-5.0); Alkaline Phosphatase 105 U/L (38-126); Anion Gap 7.1 mEq/L (5-15); Bilirubin,Direct 0.2 mg/dl (0.0-0.4); Bilirubin,Indirect 0.1 mg/dL (0.0-0.9); Bilirubin,Total 0.3 mg/dl (0.2-1.3); Calcium 8.7 mg/dl (8.4-10.2); Carbon Dioxide 25 mmol/L (22.0-30.0); Chol/HDL Ratio 2.1 (1-3.5); Cholesterol 191 mg/dl (140-200); Glucose 82 mg/dl (74-100); HDL Cholesterol 91 mg/dl (40-60); Total Protein,Serum 5.6 g/dl (6.3-8.2); Triglycerides 122 mg/dl (30-150); VLDL Cholesterol 24 mg/dL (0-40)
--- NOTE | 2022-08-25 07:48 | EXP.DC.SUM ---
General Admission date:: 08/23/22 Discharge date: 08/25/22 HPI HPI HPI: 76-year-old female with multiple medical problems including chronic kidney disease, history of coronary disease, chronic arthritis, chronic rheumatoid arthritis with lupus currently on immunosuppressive therapy who has had multiple exacerbations of her multiple diseases over the past year or 2. She was feeling fairly good yesterday morning but was running a little late for Wednesday school and quickly ate a piece of toast with some apple butter and then her medicines. She noticed that she was having significant problems swallowing and had pain with swallowing. She actually notes that she had this pain over the past 2 to 3 days and it got little worse yesterday. She does not give a history of exertional worsening with the pain but simply with swallowing. She did have some breathing issues with some shortness of air and her family brought her to the emergency department last night. In the emergency department concern was raised for unstable angina and she was admitted to hospital on a heparin drip for cardiology consultation. She notes this morning that she feels good except for swallowing discomfort and wishes to go home. Hospital Course Hospital Course Hospital Course: Patient was admitted, troponins were negative but given abnormal EKGs and her symptoms-which did vary depending on her history hour by hour she was taken to [facility] and stented as noted. This relieves some of her symptoms. The patient still notes she has some problems with swallowing and wonders about GI referral. I am not sure she has been taking her PPI as indicated on an empty stomach so I have recommended bumping her PPI up to twice daily, close follow-up in my office next week and continuing her DAPT and another medication for coronary disease. She is agreeable with this. She has much less symptoms and her breathing is better so I am comfortable discharging her today. Exam Data for Last 24 hours Vital signs and Labs for Last 24 Hours: Temp Pulse Resp BP Pulse Ox 98.2 F 63 17 109/45 L 98 08/25/22 04:00 08/25/22 04:00 08/25/22 04:00 08/25/22 04:00 08/25/22 04:00 Laboratory Results - last 24 hr 08/24/22 07:15: Sodium 129 L, Potassium 2.8 L*, Chloride 97 L, Carbon Dioxide 30, Anion Gap 4.8 L, BUN 19 H, Creatinine 1.30 H D, Estimated Creat Clear 44, Estimated GFR 40 L, Est GFR ( Amer) 48 L D, Glucose 79, Calcium 9.1 08/24/22 07:15: PT 12.0, INR 1.12 H, APTT 101.8 H* 08/24/22 13:23: Activated Clotting Time 313 H* 08/24/22 18:10: POC Glucose 69 L 08/24/22 23:53: POC Glucose 139 H 08/25/22 06:04: POC Glucose 93 08/25/22 06:40: WBC 5.2, RBC 3.47 L, Hgb 10.1 L, Hct 31.0 L, MCV 89.5, MCH 29.0, MCHC 32.5, RDW 19.0 H, Plt Count 234, MPV 8.8, Neut % (Auto) 55.0, Lymph % (Auto) 28.8, [place] % (Auto) 7.3, Eos % (Auto) 8.5, Baso % (Auto) 0.4, Neut # (Auto) 2.9, Lymph # (Auto) 1.5, [place] # (Auto) 0.4, Eos # (Auto) 0.4, Baso # (Auto) 0.0 08/25/22 06:40: Sodium 127 L, Potassium 3.1 L, Chloride 98, Carbon Dioxide 25, Anion Gap 7.1, BUN 16, Creatinine 1.40 H, Estimated Creat Clear 42, Estimated GFR 37 L, Est GFR ( Amer) 44 L, Glucose 82, Calcium 8.7, Total Bilirubin 0.3, Direct Bilirubin 0.2, Conjugated Bilirubin 0.0, Indirect Bilirubin 0.1, Unconjugated Bilirubin 0.1, AST 24, ALT 7 L, Alkaline Phosphatase 105, Total Protein 5.6 L, Albumin 3.1 L, Triglycerides 122, Cholesterol 191, VLDL Cholesterol 24, HDL Cholesterol 91 H, Cholesterol/HDL Ratio 2.1 I & O for Last 24 hours: Intake & Output 08/22/22 08/23/22 08/24/22 08/25/22 11:59 11:59 11:59 11:59 Intake Total 1435 / 1435 Output Total 0 / 0 300 / 300 Balance 0 / 0 1135 / 1135 Weight 162 lb 11.218 oz 165 lb 7 oz Narrative: EKG is sinus rhythm with old anteroseptal [place] pattern and a rate of 62 bpm. Constitutional Constitutional: no acute distress and average body habitus *Routine HEENT Exam Head: Present normocephalic a
[2022-08-25 07:54] LABS: Direct LDL Cholesterol 50.78 mg/dL (100-129)
[2022-08-25 08:00] VITALS: BP 103/40; PULSE 79; RESP 14; TEMP 37.2; O2SAT 95
--- NOTE | 2022-08-25 09:37 | PC.NURSE ---
PT DOWN FOR U/S AT THIS TIME
--- NOTE | 2022-08-25 10:57 | EXP.CARD.PN ---
Subjective Subjective Date: 08/25/22 Time: 10:30 Principal diagnosis: angina, CAD, difficuly swallowing Interval history: This is a 76-year-old black female who presented to the emergency department with complaints of chest pain. Her chest pain started approximately 3 days prior to admission. She states that it got severe on Wednesday after she was getting ready to go to Wednesday school. She describes this as a sharp pain in the central aspect radiating into her back and left arm and causing numbness in her fingers of her left hand. This was a severe 10 out of 10 pain. It was associated with nausea. The pain was occurring with rest and exertion. She states it was made worse with eating and swallowing as well. The patient reported nothing really helped to improve her pain. The patient underwent left cardiac catheterization yesterday and had severe proximal LAD disease. She underwent stenting of her proximal LAD with drug-eluting stent. The patient had a hyperdynamic ventricle and elevated LVEDP. 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 She will be on dual antiplatelet therapy with Brilinta and aspirin. This morning she states that she is still having a lot of difficulty swallowing. She states that when she swallows it causes significant pain. This has not improved any. She states that she still has difficulty even just swallowing water. She denies any shortness of breath or edema. She denies any fever, chills, nausea, vomiting, diarrhea, PND or orthopnea. Exam Data for Last 24 hours Vital signs and Labs for Last 24 Hours: Temp Pulse Resp BP Pulse Ox 98.9 F 79 14 103/40 L 95 08/25/22 08:00 08/25/22 08:00 08/25/22 08:00 08/25/22 08:00 08/25/22 08:00 Laboratory Results - last 24 hr 08/24/22 13:23: Activated Clotting Time 313 H* 08/24/22 18:10: POC Glucose 69 L 08/24/22 23:53: POC Glucose 139 H 08/25/22 06:04: POC Glucose 93 08/25/22 06:40: WBC 5.2, RBC 3.47 L, Hgb 10.1 L, Hct 31.0 L, MCV 89.5, MCH 29.0, MCHC 32.5, RDW 19.0 H, Plt Count 234, MPV 8.8, Neut % (Auto) 55.0, Lymph % (Auto) 28.8, [place] % (Auto) 7.3, Eos % (Auto) 8.5, Baso % (Auto) 0.4, Neut # (Auto) 2.9, Lymph # (Auto) 1.5, [place] # (Auto) 0.4, Eos # (Auto) 0.4, Baso # (Auto) 0.0 08/25/22 06:40: Sodium 127 L, Potassium 3.1 L, Chloride 98, Carbon Dioxide 25, Anion Gap 7.1, BUN 16, Creatinine 1.40 H, Estimated Creat Clear 42, Estimated GFR 37 L, Est GFR ( Amer) 44 L, Glucose 82, Calcium 8.7, Total Bilirubin 0.3, Direct Bilirubin 0.2, Conjugated Bilirubin 0.0, Indirect Bilirubin 0.1, Unconjugated Bilirubin 0.1, AST 24, ALT 7 L, Alkaline Phosphatase 105, Total Protein 5.6 L, Albumin 3.1 L, Triglycerides 122, Cholesterol 191, LDL Cholesterol Direct 50.78 L, VLDL Cholesterol 24, HDL Cholesterol 91 H, Cholesterol/HDL Ratio 2.1 I & O for Last 24 hours: Intake & Output 08/22/22 08/23/22 08/24/22 08/25/22 23:59 23:59 23:59 23:59 Intake Total 1435 / 1435 Output Total 0 / 0 0 / 0 300 / 300 Balance 0 / 0 0 / 0 1135 / 1135 Weight 162 lb 6 oz 162 lb 11.218 oz 165 lb 7 oz Narrative: [facility] shows: Severe proximal LAD disease with an MLA of 3.3 mm??? 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 Dual antiplatelet therapy 2. Abdominal aortic ultrasound to better evaluate right common iliac aneurysmal size.? By angiography I suspect this is small however ultrasound should be performed to better quantitate as angiography is notoriously inaccurate in assessing aneurysm size.? Because of the elevated creatinine I do not recommend CTA 3. I am not entirely convinced patient's chest pain stems from this proximal LAD disease.? If the patient continues to have symp
--- NOTE | 2022-08-25 12:17 | HMH.PHACL ---
PHA Director Health Discharge Med Director Bioinformatics: Yoko Jerez has received discharge medication counseling on the following medications: ASPIRIN 81 MG DAILY CLOPIDOGREL 75 MG DAILY LISINOPRIL 10 MG BID CARVEDILOL 18.75 MG BID SIMVASTATIN 20 MG HS
--- NOTE | 2022-08-26 13:31 | CARE MANAGER ---
Contacted patient related to hospital discharge. She still feels poorly. She did contact Dr. Hazel's office and is awaiting a call back. She states that she did hop picker her medication and is taking it as prescribed. Denies questions or concerns. MAGALIE Coates
== END 2022-08-25 11:30 | disposition home or self-care (01) ==
LOC: ER 13:04 → 2ND 18:00
PROVIDERS: Internal Medicine; Nurse Practitioner Family; Admitting Provider Emergency Medicine; Emergency Provider Student in an Organized Health Care Education/Training Program; PCP Internal Medicine Adolescent Medicine; Visit Provider Internal Medicine Adolescent Medicine
DX: I25.110 Atherosclerotic heart disease of native coronary artery with unstable angina pectoris (principal); Z79.899 Other long term (current) drug therapy; I70.1 Atherosclerosis of renal artery; E78.5 Hyperlipidemia, unspecified; E87.6 Hypokalemia; Z79.620 Long term (current) use of immunosuppressive biologic; N18.9 Chronic kidney disease, unspecified; E05.90 Thyrotoxicosis, unspecified without thyrotoxic crisis or storm; Z20.822 Contact with and (suspected) exposure to COVID-19; I77.1 Stricture of artery; I72.3 Aneurysm of iliac artery; I15.0 Renovascular hypertension; M06.9 Rheumatoid arthritis, unspecified; M32.9 Systemic lupus erythematosus, unspecified; I13.0 Hypertensive heart and chronic kidney disease with heart failure and stage 1 through stage 4 chronic kidney disease, or unspecified chronic kidney disease; I70.298 Other atherosclerosis of native arteries of extremities, other extremity
CPT/HCPCS: G0378; 36252; 36415; 71045; 76770; 80048; 80053; 80061; 80076; 82962; 84484; 85025; 85347; 85610; 85730; 92928; 92978; 93005; 93458; 99152; 99153; 99285; C1725; C1760; C1769; C1876; C9600; C9803; G0278; J1644; Q9967; U0003; U0005

== ENCOUNTER → 2022-08-27 13:04 | Outpatient (CLI) | payer MEDICARE, BC, MEDICAID, SELFPAY ==
--- NOTE | 2022-08-27 13:08 | CT_ITS ---
FINAL REPORT TECHNIQUE: Axial images were obtained from the lung apex to the mid abdomen by computed tomography. Coronal reformatted images were obtained. Additional thin section high-resolution images were also obtained. This study was performed with techniques to keep radiation doses as low as reasonably achievable, (ALARA). Individualized dose reduction techniques using automated exposure control or adjustment of mA and/or kV according to the patient''s size were employed. CLINICAL HISTORY: PULMONARY HYPERTENSION, OTHER OVERLAP SYNDROMES FINDINGS: There is no axillary adenopathy. There is no hilar or mediastinal adenopathy. Heart size is normal. There is no pericardial or pleural effusion. Limited images of the upper abdomen are unremarkable. There is mild pulmonary scarring. There is a calcified granuloma in the right upper lobe. There are multiple less than 5 mm nodules throughout both lungs including a 4 mm right lower lobe nodule. The bone window images show postoperative changes in the thoracolumbar spine. There is severe T9-10 disc space narrowing with a moderate chronic T10 compression fracture. There is mild central canal stenosis at T9-10. High-resolution images reveal mild scarring. There are mild ground-glass opacities in the right lung base, nonspecific, and may represent edema, alveolitis or mild pneumonia. There is no significant enlargement of the central pulmonary arteries to suggest pulmonary arterial hypertension. There is no bronchiectasis and no significant interstitial lung disease. IMPRESSION: Multiple less than 5 mm nodules throughout both lungs. No significant enlargement of the central pulmonary arteries to suggest pulmonary arterial hypertension. No bronchiectasis and no significant interstitial lung disease. Reviewed, Interpreted and Dictated by Vasquez Timmons III, MD Transcribed by Yamila Love Authenticated and [facility]
== END ==
PROVIDERS: PCP Internal Medicine Adolescent Medicine; Visit Provider Internal Medicine Rheumatology
DX: I27.20 Pulmonary hypertension, unspecified (principal); M35.1 Other overlap syndromes
CPT/HCPCS: 71250

== ENCOUNTER → 2022-09-08 10:57 | Outpatient (CLI) | payer MEDICARE, BC, MEDICAID, SELFPAY ==
--- NOTE | 2022-09-08 10:58 | CA_ITS ---
APPROVED REPORT EXAM: Comprehensive 2D, Doppler, and color-flow Echocardiogram Physician Pediatrician: Jimena Alvarado RT(R) Ht: 5 ft 4 in Wt: 158lbs BSA: 1.77 BP: 106/67 mmHg Indications: CAD, SOB, HTN, hyperlipidemia 2D Dimensions LVOT 1.57 cm (M/F) 1.5-2.5 M-Mode Dimensions RVDd 3.67 cm (0.9-2.6) LA Diam 2.54 cm (1.9-4.0) LVDd 3.07 cm (3.5-5.7) Ao Diam 1.51 cm (2.0-3.7) LVDs 2.19 cm (3.5-5.7) IVSd 0.81 cm (0.6-1.1) PWd 0.81 cm (0.6-1.1) EF (Teich) 56.80% FS 28.70% EDV (Teich) 37.00 mL ESV (Teich) 16.00 mL LV Diastology E Decel Time 190.00 (160-240 msec) E/A Ratio 0.9 MED E' 5.70 (< 7 cm/sec) E'/MED E' Ratio 12.56 (>14) LAT E' 5.90 (<10 cm/sec) E/LAT E' Ratio 12.14 (>14) Mitral Valve MV E Max Jorge A. 72.00 (40-130 cm/s) MV A Velocity 79.00 (40-130 cm/s) E/A Ratio 0.91 MV Decel. Time 190.00 (160-240 ms) MV PHT 56.00 ms Tricuspid Valve TR P. Velocity 255.00 cm/s RAP Estimate 15.00 mmHg RVSP 41.10 mmHg Left Ventricle Left atrium is mildly enlarged, left ventricle is normal size mild concentric left ventricular hypertrophy, estimated ejection fraction 55% with no regional wall motion abnormality, grade 1 diastolic dysfunction seen without tissue Doppler evidence of raise left atrial pressure. Right Ventricle Right atrium and right ventricle are mildly enlarged with normal contractility. Aortic Valve Aortic valve is minimally thickened and fibrosed there is no aortic stenosis or aortic insufficiency. Mitral Valve Mitral valve is grossly normal, there is trace mitral regurgitation. Tricuspid Valve Tricuspid valve grossly normal, there is trace tricuspid regurgitation, tricuspid regurgitation jet velocity is inadequate for calculation of the right ventricular systolic pressure. Pulmonic Valve Pulmonic valve is poorly visualized. Great Vessels Aortic root is normal size. Inferior vena cava is poorly visualized. Pericardium No significant pericardial effusion noted. Conclusion 1. Mild biatrial enlargement, normal left ventricular size, mild concentric left ventricular hypertrophy, estimated ejection fraction 55% with no regional wall motion abnormality, grade 1 diastolic dysfunction seen without tissue Doppler evidence of atrial atrial pressure. 2. Mildly enlarged right ventricle with normal contractility. 3. Trace mitral and tricuspid regurgitation. 4. No significant pericardial effusion. 5. Inferior vena cava is poorly visualized. Electronically signed by : Macario Guevara MD 09/08/2022 19:30:13
== END ==
PROVIDERS: PCP Internal Medicine Adolescent Medicine; Visit Provider Physician Assistant
DX: E78.2 Mixed hyperlipidemia (principal); I11.9 Hypertensive heart disease without heart failure; I25.110 Atherosclerotic heart disease of native coronary artery with unstable angina pectoris; I73.9 Peripheral vascular disease, unspecified
CPT/HCPCS: 93306

== ENCOUNTER 2022-09-10 10:13 | Outpatient (RCR) | payer MEDICARE, BC, MEDICAID, SELFPAY | END 2022-10-21 11:00 | disposition home or self-care (01) | LOC: PT 10:13 | PROVIDERS: Visit Provider Internal Medicine | DX: I25.10 Atherosclerotic heart disease of native coronary artery without angina pectoris (principal); Z95.5 Presence of coronary angioplasty implant and graft | CPT/HCPCS: 93798 ==

== ENCOUNTER → 2022-09-16 12:43 | Outpatient (CLI) | payer MEDICARE, BC, MEDICAID, SELFPAY ==
--- NOTE | 2022-09-16 12:46 | FL_ITS ---
FINAL REPORT CLINICAL HISTORY: DIFFICULTY SWALLOWING PILLS FINDINGS: MODIFIED BARIUM SWALLOW History: Dysphagia FINDINGS: Fluoroscopy was provided for the speech pathologist to evaluate the swallowing mechanism. The patient was given several different consistencies of barium while the swallow was visualized fluoroscopically. The report of the speech pathologist should be consulted prior to making dietary decisions. FLUOROSCOPY TIME:2 minutes IMPRESSION: Modified barium swallow under fluoroscopic guidance. Please see the report of the speech pathologist for Dietary recommendations. Reviewed, Interpreted and Dictated by Vasquez Timmons III, MD Transcribed by WARREN Mac Authenticated and [facility]
--- NOTE | 2022-09-16 14:32 | HMH.SLMBS2 ---
Speech & Language Evaluation Speech/Language Mod Barium Swallow Start: 09/16/22 13:38 Freq: once Status: Complete Protocol: Document 09/16/22 13:38 SHASHIRILEY (Rec: 09/16/22 14:31 LUCIO [id number]) General Information General Current Food Consistancy Regular,Thin Liquids Dentition Upper & Lower Dentures Oxygen Status Room Air Facial Symmetry Symmetrical Patient Orientation Person,Place,Time,Situation Ability to Follow Directions Excellent Communication Ability No Impairment MBS Recommendations Diet Dietary Recommendations Regular,Thin Liquids Treatment/Strategies Strategy/Precaution Recommend Sitting Upright (90 deg),Small Bites and Sips,Alternate Liquids/Solids Referrals/Other Recommended Referrals GI Consult Mod Barium Swallow Impressions Summary and Impressions Oral Phase Impression Mild Impairment Oral Phase Summary Mild oral dysphagia noted. Prolonged mastication of solids and increased AP transit time with pill and puree. Prespill of thin liquids to the pyriform sinuses noted. Pharyngeal Phase Impression Mild Impairment Pharyngeal Phase Summary Mild pharyngeal dysphagia. Delayed swallow initiation to the pyriform sinuses, flash penetration intermittently with thin liquid trials. Decreased hyolaryngeal elevation. No aspiration was noted on the study. When given the pill, farm equipment technician scanned lower and pill was noted to be stuck just below the UES. Pt cleared with thin washes. Speech/Language MBS Assessment/Goals/Plan Assessment Date of Evaluation: 09/16/22 Evaluation Type Initial Certification Assessment/Problems Dysphagia per MD order. Does Patient Qualify for Service No Qualify/Failure Comment Based on the MBSS results, no further skilled ST services are warranted at this time. Recommendations PHYSICIAN CERTIFICATION: The specified therapy services are required, authorized, and reviewed every 30 days. Diet Recommendations Normal Liquid Type Recommendations Normal/Thin Dysphagia Swallow Precautions/Strategies Sitting Upright (90 deg),Small Bites and Sips,Alternate
== END ==
PROVIDERS: PCP Internal Medicine Adolescent Medicine; Visit Provider Nurse Practitioner Family
DX: R13.10 Dysphagia, unspecified (principal); K30 Functional dyspepsia
CPT/HCPCS: 70371; 92611

== ENCOUNTER → 2022-10-19 11:48 | Outpatient (CLI) | payer MEDICARE, BC, MEDICAID, SELFPAY ==
[2022-10-19 14:09] LABS: Basophils % 0.3 % (0.1-2.0); Eosinophils # 0.4 K/mm3 (0.0-0.4); Hematocrit 33.7 % (37.0-47.0); Hemoglobin 10.2 g/dL (12.2-16.2); Lymphocytes % 17.3 % (10-50); Mean Corpuscular HGB Conc 30.2 g/dL (31.8-35.4); Mean Corpuscular Hemoglobin 27.5 pg (27.0-31.2); Mean Corpuscular Volume 91.1 fl (81-99); Mean Platelet Volume 8.5 fl (7.4-10.4); Monocytes # 0.5 K/mm3 (0.1-1.0); Monocytes % 7.7 % (1.7-9.3); Neutrophils % 68.7 % (37.0-80.0); Platelet Count 431 K/mm3 (142-424); Red Cell Distribution Width 19.5 % (11.5-17.5); White Blood Count 5.9 K/mm3 (4.8-10.8)
[2022-10-19 14:49] LABS: Chloride 97 mmol/L (98-107); Potassium 4.3 mmoL/L (3.5-5.1); Sodium 129 mmol/L (136-145)
[2022-10-19 14:52] LABS: Alanine Aminotransferase 7 U/L (12-78); Albumin Level 3.6 g/dl (3.5-5.0); Albumin/Globulin Ratio 1.2 (1.1-1.8); Alkaline Phosphatase 120 U/L (38-126); Anion Gap 10.3 mEq/L (5-15); Aspartate Amino Transferase 25 U/L (14-36); Bilirubin,Total 0.5 mg/dl (0.2-1.3); Blood Urea Nitrogen 16 mg/dl (7-17); Calcium 8.8 mg/dl (8.4-10.2); Carbon Dioxide 26 mmol/L (22.0-30.0); Estimated Glomerular Filt Rate 48 ml/min (>60); GFR (African American) 59 ML/MIN (>60); Globulin 2.9 g/dL (1.3-3.2); Glucose 71 mg/dl (74-100); Total Protein,Serum 6.5 g/dl (6.3-8.2)
== END ==
PROVIDERS: PCP Internal Medicine Adolescent Medicine; Visit Provider Internal Medicine Adolescent Medicine
DX: R53.1 Weakness (principal)
CPT/HCPCS: 36415; 80053; 85025

== ENCOUNTER 2022-10-27 18:24 | Inpatient (IN) | payer MEDICARE, MEDICAID, SELFPAY ==
--- NOTE | 2022-10-27 18:24 | ECG_ITS ---
APPROVED REPORT Exam: Resting ECG HR:89 bpm ECG Measurements Heart Rate 89 AXES MS 148 P 79 QRSd 81 QRS 73 QT 330 T 58 QTc 376 Conclusion SINUS RHYTHM SEPTAL MYOCARDIAL INFARCTION , OF INDETERMINATE AGE [40+ ms Q WAVE IN V1/V2] ABNORMAL ECG UNCONFIRMED REPORT Electronically signed by : Miller Hazel MD 10/28/2022 21:28:33
[2022-10-27 18:47] VITALS: BP 148/68; PULSE 84; RESP 16; TEMP 36.4; O2SAT 100; BMI 27.8
--- NOTE | 2022-10-27 18:53 | XR_ITS ---
PROCEDURE INFORMATION: Exam: XR Chest Exam date and time: 10/27/2022 7:15 PM Age: 77 years old Clinical indication: Sternal or substernal pain; Additional info: Chest pain TECHNIQUE: Imaging protocol: Radiologic exam of the chest. Views: 1 view. COMPARISON: CT HIGH RESOLUTION CHEST 08/27/2022 1:27 PM FINDINGS: Lungs: Unremarkable. No consolidation. Granulomatous changes. Pleural spaces: Unremarkable. No pleural effusion. No pneumothorax. Heart/Mediastinum: Unremarkable. No cardiomegaly. Bones/joints: Postsurgical changes in the thoracic spine. IMPRESSION: No acute findings.
[2022-10-27 19:15] LABS: Basophils % 0.4 % (0.1-2.0); Eosinophils # 0.5 K/mm3 (0.0-0.4); Eosinophils % 6.8 % (0.1-12.0); Hematocrit 27.5 % (37.0-47.0); Hemoglobin 8.3 g/dL (12.2-16.2); Lymphocytes # 1.7 K/mm3 (0.7-4.5); Lymphocytes % 23.8 % (10-50); Mean Corpuscular HGB Conc 30.2 g/dL (31.8-35.4); Mean Corpuscular Hemoglobin 28.3 pg (27.0-31.2); Mean Corpuscular Volume 93.8 fl (81-99); Mean Platelet Volume 8.5 fl (7.4-10.4); Monocytes # 0.7 K/mm3 (0.1-1.0); Monocytes % 9.8 % (1.7-9.3); Neutrophils # 4.3 K/mm3 (1.8-7.8); Neutrophils % 59.2 % (37.0-80.0); Platelet Count 384 K/mm3 (142-424); Red Blood Count 2.93 M/mm3 (4.20-5.40); Red Cell Distribution Width 20.6 % (11.5-17.5); White Blood Count 7.3 K/mm3 (4.8-10.8)
[2022-10-27 19:19] LABS: Alanine Aminotransferase 10 U/L (12-78); Albumin Level 3.8 g/dl (3.5-5.0); Albumin/Globulin Ratio 1.2 (1.1-1.8); Alkaline Phosphatase 144 U/L (38-126); Anion Gap 5.3 mEq/L (5-15); Aspartate Amino Transferase 25 U/L (14-36); Bilirubin,Total 0.2 mg/dl (0.2-1.3); Blood Urea Nitrogen 20 mg/dl (7-17); Calcium 8.6 mg/dl (8.4-10.2); Carbon Dioxide 32 mmol/L (22.0-30.0); Chloride 98 mmol/L (98-107); Creatinine Clearance Estimated 47 mL/min (50-200); Estimated Glomerular Filt Rate 44 ml/min (>60); GFR (African American) 53 ML/MIN (>60); Globulin 3.1 g/dL (1.3-3.2); Glucose 86 mg/dl (74-100); Potassium 3.3 mmoL/L (3.5-5.1); Sodium 132 mmol/L (136-145); Total Protein,Serum 6.9 g/dl (6.3-8.2)
[2022-10-27 19:44] LABS: Troponin I 0.01 ng/ml (0.00-0.034)
[2022-10-27 20:00] VITALS: BP 127/58; PULSE 85; O2SAT 99
--- NOTE | 2022-10-27 20:40 | PC.NURSE ---
@ bedside speaking with Pt.
--- NOTE | 2022-10-27 20:43 | HMH.EDCP ---
Discharge Plan Disposition Patient Disposition: Admitted as Observation Chief Complaint: Chest Pain Prescriptions Prescriptions: No Action ferrous gluconate 240 mg (27 mg iron) tablet 240 mg PO DAILY carvedilol [Coreg] 12.5 mg tablet 12.5 mg PO BID Rx Instructions: must administer with a meal/food pantoprazole 40 mg tablet,delayed release (DR/EC) 40 mg PO DAILY donepezil 10 mg tablet 10 mg PO HS 30 Days Qty: 30 0RF cyanocobalamin (vitamin B-12) 1,000 MCG tablet 1 tab PO DAILY 30 Days Qty: 30 0RF aspirin 81 mg tablet,delayed release (DR/EC) 81 mg PO DAILY 30 Days Qty: 30 0RF leflunomide 20 mg tablet 20 mg PO DAILY 30 Days Qty: 30 0RF potassium chloride 20 MEQ tablet 20 meq PO BID 30 Days Qty: 60 0RF simvastatin 20 mg tablet 20 mg PO HS 30 Days Qty: 30 0RF ascorbate calcium (vitamin C) 500 mg tablet 500 mg PO DAILY 30 Days Qty: 30 0RF dorzolamide-timolol 22.3-6.8 mg/mL drops 1 drp OPHTHALMIC BID 30 Days Qty: 1 0RF montelukast 10 MG tablet 10 mg PO DAILY 30 Days Qty: 30 0RF fluticasone propionate 50 mcg/actuation spray,suspension 2 spry INTRANASAL DAILY 30 Days Qty: 1 0RF cholecalciferol (vitamin D3) 1,000 unit capsule 1 cap PO BID 30 Days Qty: 60 0RF memantine 10 MG tablet 10 mg PO BID 30 Days Qty: 60 0RF cetirizine 10 mg capsule 10 mg PO DAILY 30 Days Qty: 30 0RF bupropion HCl 100 mg tablet 100 mg PO AM Label Comments: TAKE ONE TABLET BY MOUTH EVERY MORNING AND TAKE TWO TABLETS BY MOUTH EVERY DAY AT BEDTIME bupropion HCl 100 MG tablet 200 mg PO HS colchicine [Mitigare] 0.6 mg capsule 0.6 mg PO DAILY Label Comments: TAKE ONE CAPSULE BY MOUTH EVERY DAY primidone 250 mg tablet 250 mg PO HS methimazole 5 MG tablet 5 mg PO TID prednisone 5 mg tablet 5 mg PO DAILY Label Comments: TAKE ONE TABLET BY MOUTH EVERY DAY carbidopa-levodopa 25-100 mg tablet 1 tab PO TID Label Comments: TAKE ONE TABLET THREE TIMES DAILY MAY take with OR without food Rx Instructions: may take with or without food citalopram 10 mg tablet 10 mg PO DAILY Label Comments: TAKE ONE TABLET BY MOUTH EVERY DAY chlorthalidone 25 mg tablet 25 mg PO DAILY Label Comments: TAKE ONE TABLET BY MOUTH EVERY DAY meclizine 25 mg tablet 25 mg PO TIDP PRN (Reason: Dizziness) Label Comments: TAKE ONE TABLET BY MOUTH THREE TIMES DAILY NEEDED gabapentin 300 mg capsule 300 mg PO QID Label Comments: TAKE ONE CAPSULE BY MOUTH FOUR TIMES DAILY MAY CAUSE DROWSINESS bumetanide 1 mg tablet 1 mg PO DAILY Label Comments: TAKE ONE TABLET BY MOUTH EVERY DAY hydrocortisone 2.5 % cream 1 applic TOPICAL BID Label Comments: APPLY TOPICALLY TO THE AFFECTED AREA(S) TWICE DAILY clopidogrel 75 mg tablet 75 mg PO DAILY omeprazole 20 mg capsule,delayed release(DR/EC) 20 mg PO BID Jardiance 10 mg tablet 10 mg PO DAILY Referrals Follow up/Referrals: Provider,Referral, MD [Primary Care Provider] - See instructions Clinical Impressions Clinical Impression: Angina pectoris, CAD (coronary artery disease) Discharge ED Provider: Cassandra (ED)Jerson Chest Pain HPI General Chief Complaint: Chest Pain Stated Complaint: Chest tightness Time Seen by Provider: 10/27/22 20:15 Mode of Arrival: Wheelchair Source of Information: Patient, Relative and Medical Record Limitations: No Limitations Description of Symptoms (Recalled from ER Triage Doc. by RN): c/o pain in center of chest. ongoing for a few days. worse in the morning. pt also c/o left shoulder pain ongoing for approx 1 month. History of Present Illness HPI narrative: pt with ongoing episodes of chest pain over the last 3 days - has hx of cad with recent stent - complaint: chest pain indicative of cardiac Onset (ago): day(s) Duration: intermitte
[2022-10-27 20:52] LABS: Coronavirus 19, PCR Not Detected (NotDetected); Influenza A, PCR Not Detected (NotDetected); Influenza B, PCR Not Detected (NotDetected)
--- NOTE | 2022-10-27 20:52 | PC.NURSE ---
paged Dr. Raymond, on-call for Dr. Hazel, for admission
--- NOTE | 2022-10-27 20:58 | PC.NURSE ---
Dr. Trujillo s/w Dr. Raymond for admit. yard supervisor cotton gin notified for bed assignment.
--- NOTE | 2022-10-27 21:45 | PC.NURSE ---
attempted to call report, Marilou MEJIAS s/w a provider and will call back shortly.
[2022-10-27 21:48] VITALS: BP 125/60; PULSE 82; PULSE 85; RESP 16; TEMP 36.6; O2SAT 98
--- NOTE | 2022-10-27 21:55 | PC.NURSE ---
called report to Marilou Knox RN
--- NOTE | 2022-10-27 22:08 | PC.NURSE ---
PT TO FLOOR VIA WHEELCHAIR AT [id number]
[2022-10-27 22:30] VITALS: BP 147/65; PULSE 88; RESP 16; TEMP 37.2; O2SAT 98; BMI 26.6
[2022-10-27 23:17] LABS: Troponin I < 0.01 ng/ml (0.00-0.034)
--- NOTE | 2022-10-27 23:39 | PC.NURSE ---
AT 2335 TECH CALLED OUT THIS RN TO COME TO PT'S ROOM DUE TO PT COMPLAINING OF CHEST PAIN. RT CALLED FOR STAT EKG. PRIMARY CARE COORDINATOR NOTIFIED. VITAL SIGHS ARE BP:148/64 HR:99 O2:97 ON ROOM AIR. PT IS C/O LIGHTHEADEDNESS AND PRESSURE BEHIND HER LEFT EYE.
--- NOTE | 2022-10-27 23:51 | ECG_ITS ---
APPROVED REPORT Exam: Resting ECG HR:91 bpm ECG Measurements Heart Rate 91 AXES MI 153 P 65 QRSd 83 QRS 32 QT 327 T 62 QTc 376 Conclusion SINUS RHYTHM SEPTAL MYOCARDIAL INFARCTION , OF INDETERMINATE AGE [40+ ms Q WAVE IN V1/V2] ABNORMAL ECG UNCONFIRMED REPORT Electronically signed by : Miller Hazel MD 10/28/2022 21:27:37
[2022-10-28] VITALS (37 sets, daily range): BP systolic 97–172; BP diastolic 46–82; PULSE 63–92; RESP 16–19; TEMP 36.2–37.2; O2SAT 90–100; BMI 23.4
--- NOTE | 2022-10-28 | PC.NURSE ---
STAT EKG READ BY MD LUNDBERG. STATED NO CHANGES FROM ER EKG. NO NEW ORDERS.
[2022-10-28 01:41] LABS: Troponin I 0.01 ng/ml (0.00-0.034)
--- NOTE | 2022-10-28 06:44 | PC.NURSE ---
PT HAS RESTED INTERMITTENTLY. NO FURTHER CHEST PAIN EPISODES. PT DID C/O A HEADACHE THIS AM. PT EDUCATED THAT NITRO PASTE CAN CAUSE HEADACHE. MEDICATED PER NOV. CALL DUTTON WITH IN REACH.
[2022-10-28 06:56] LABS: Basophils % 0.5 % (0.1-2.0); Eosinophils # 0.4 K/mm3 (0.0-0.4); Eosinophils % 8.3 % (0.1-12.0); Lymphocytes # 1.4 K/mm3 (0.7-4.5); Lymphocytes % 31.2 % (10-50); Mean Corpuscular HGB Conc 29.8 g/dL (31.8-35.4); Mean Corpuscular Hemoglobin 27.9 pg (27.0-31.2); Mean Corpuscular Volume 93.4 fl (81-99); Mean Platelet Volume 8.3 fl (7.4-10.4); Monocytes # 0.4 K/mm3 (0.1-1.0); Monocytes % 9.4 % (1.7-9.3); Neutrophils # 2.3 K/mm3 (1.8-7.8); Neutrophils % 50.5 % (37.0-80.0); Platelet Count 328 K/mm3 (142-424); Red Blood Count 2.47 M/mm3 (4.20-5.40); Red Cell Distribution Width 20.7 % (11.5-17.5); White Blood Count 4.5 K/mm3 (4.8-10.8)
[2022-10-28 07:04] LABS: Hemoglobin 6.9 g/dL (12.2-16.2)
[2022-10-28 07:07] LABS: Chloride 103 mmol/L (98-107); Sodium 134 mmol/L (136-145)
[2022-10-28 07:08] LABS: Potassium 3.3 mmoL/L (3.5-5.1)
[2022-10-28 07:10] LABS: Anion Gap 6.3 mEq/L (5-15); Blood Urea Nitrogen 20 mg/dl (7-17); Carbon Dioxide 28 mmol/L (22.0-30.0); Creatinine Clearance Estimated 43 mL/min (50-200); Estimated Glomerular Filt Rate 48 ml/min (>60); GFR (African American) 59 ML/MIN (>60)
[2022-10-28 07:11] LABS: Calcium 8.3 mg/dl (8.4-10.2); Glucose 67 mg/dl (74-100); Magnesium 2.1 mg/dl (1.6-2.3)
--- NOTE | 2022-10-28 08:41 | EXP.HP ---
History of Present Illness *Admission Date: 10/28/22 *Reason for visit:: Upper epigastric pain *History of present illness: 77-year-old female with multiple medical problems including RA, coronary disease with LAD stent placed in August 2022, and multiple arthritis issues who takes multiple medications who came to the emergency department with upper epigastric pain that is burning. She had been seen by me after her stent and placed on Carafate and proton pump inhibitors. She unfortunately has continued to lose hemoglobin levels in spite of iron therapy and was seen by GI in [place]-Dr. Valdovinos, who wanted to put off her scope for a while after stent placement. She came to the emergency department as it was intractable epigastric pain and was found to have low hemoglobin and was admitted to hospital. [facility] Disclaimer: The information contained in this section may have been updated after the patient was seen, as this information can be updated by other users. 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 (Updated 10/28/22 @ 08:47 by Miller Hazel MD) Carotid bruit Cataract COPD (chronic obstructive pulmonary disease) Diastolic dysfunction Difficulty swallowing DVT (deep venous thrombosis) Edema GERD (gastroesophageal reflux disease) Heart murmur HHD (hypertensive heart disease) History of COVID-19 HLD (hyperlipidemia) HTN (hypertension), benign Hypothyroid Palpitations Peripheral arterial disease PVD (peripheral vascular disease) Renal disease Right carotid bruit Systemic lupus Unstable angina Surgical History (Updated 10/27/22 @ 22:34 by Marilou Herman RN) Cataract extraction status, right eye H/O rotator cuff surgery H/O tubal ligation History of back surgery Family History Other Alcoholism Anemia Cancer Coronary artery disease FHx: mental illness Heart attack Hyperlipidemia Hypertension Kidney disease Substance abuse Tuberculosis 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 (Updated 10/27/22 @ 22:34 by Marilou Herman RN) Smoking Status: Former smoker alcohol intake: never substance use type: denies use current occupational status: retired Travel in the last 8 weeks: Inside the [place] household members: children current occupational exposures/hazards: No Review of Systems Review of Systems Review of systems:: pertinent systems reviewed and negative unless documented below Meds Home Medications and Allergies Home Medications Medication Instructions Recorded Confirmed Type ascorbate calcium (vitamin C) 500 500 mg PO DAILY Vitamin 30 days 08/22/21 10/27/22 Rx mg tablet #30 tabs aspirin 81 mg tablet,delayed 81 mg PO DAILY HEART HEALTH 30 08/22/21 10/27/22 Rx release days #30 tabs cetirizine 10 mg capsule 10 mg PO DAILY Allergies 30 days 08/22/21 10/27/22 Rx #30 caps cholecalciferol (vitamin D3) 25 1 cap PO BID Supplement 30 days 08/22/21 10/27/22 Rx mcg (1,000 unit) capsule #60 caps cyanocobalamin (vitamin B-12) 1 tab PO DAILY Supplement 30 days 08/22/21 10/27/22 Rx 1,000 mcg tablet #30 tabs donepezil 10 mg tablet 10 mg PO HS Memory 30 days #30 tabs 08/22/21 10/27/22 Rx dorzolamide 22.3 mg-timolol 6.8 1 drp ophthalmic (eye) BID Eye 08/22/21 10/27/22 Rx mg/mL eye drops health 30 days ##1 fluticasone propionate 50 2 spry intranasal DAILY Allergies 08/22/21 10/27/22 Rx mcg/actuation nasal 30 days ##1 spray,suspension leflunomide 20 mg tablet 20 mg PO DAILY Lupus 30 days #30 08/22/21 10/27/22 Rx tabs memantine 10 mg tablet 10 mg PO BID Memory 30 days #60 08/22/21 10/27/22 Rx tabs montelukast 10 mg tablet 10 mg PO DAILY Allergy symptoms 30 08/22/21 10/27/22 Rx days #30 tabs potassium chloride 20 mEq 20 meq PO BID Potassium Supplement 08/22/21 10/27/22 Rx tablet,extended release(part/cryst) 30 days #60 tabs simvastatin 20 mg tablet 20 mg PO HS Cholesterol 30 days 08/22/21 10/27/22 Rx #30 tabs ferrous gluconate 240 mg (27
--- NOTE | 2022-10-28 08:50 | EXP.SURG.CON ---
History of Present Illness *Admission Date: 10/28/22 *Reason for visit:: Anemia; melena *History of present illness: This is a 77-year-old female seen in consultation of Dr. Hazel for evaluation regarding anemia and dark stools . Please see HPI from admission H&P for the below. Forwarded from admission H&P: 77-year-old female with multiple medical problems including RA, coronary disease with LAD stent placed in August 2022, and multiple arthritis issues who takes multiple medications who came to the emergency department with upper epigastric pain that is burning. She had been seen by me after her stent and placed on Carafate and proton pump inhibitors. She unfortunately has continued to lose hemoglobin levels in spite of iron therapy and was seen by GI in [place]-Dr. Valdovinos, who wanted to put off her scope for a while after stent placement. She came to the emergency department as it was intractable epigastric pain and was found to have low hemoglobin and was admitted to hospital. [facility] Disclaimer: The information contained in this section may have been updated after the patient was seen, as this information can be updated by other users. 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 (Updated 10/28/22 @ 08:53 by Damir Lagos MD) Carotid bruit Cataract COPD (chronic obstructive pulmonary disease) Diastolic dysfunction Difficulty swallowing DVT (deep venous thrombosis) Edema GERD (gastroesophageal reflux disease) Heart murmur HHD (hypertensive heart disease) History of COVID-19 HLD (hyperlipidemia) HTN (hypertension), benign Hypothyroid Palpitations Peripheral arterial disease PVD (peripheral vascular disease) Renal disease Right carotid bruit Systemic lupus Unstable angina Surgical History (Updated 10/27/22 @ 22:34 by Marilou Herman RN) Cataract extraction status, right eye H/O rotator cuff surgery H/O tubal ligation History of back surgery Family History Other Alcoholism Anemia Cancer Coronary artery disease FHx: mental illness Heart attack Hyperlipidemia Hypertension Kidney disease Substance abuse Tuberculosis 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 (Updated 10/27/22 @ 22:34 by Marilou Herman RN) Smoking Status: Former smoker alcohol intake: never substance use type: denies use current occupational status: retired Travel in the last 8 weeks: [place] the [place] household members: children current occupational exposures/hazards: No Meds Home Medications and Allergies Home Medications Medication Instructions Recorded Confirmed Type ascorbate calcium (vitamin C) 500 500 mg PO DAILY Vitamin 30 days 08/22/21 10/27/22 Rx mg tablet #30 tabs aspirin 81 mg tablet,delayed 81 mg PO DAILY HEART HEALTH 30 08/22/21 10/27/22 Rx release days #30 tabs cetirizine 10 mg capsule 10 mg PO DAILY Allergies 30 days 08/22/21 10/27/22 Rx #30 caps cholecalciferol (vitamin D3) 25 1 cap PO BID Supplement 30 days 08/22/21 10/27/22 Rx mcg (1,000 unit) capsule #60 caps cyanocobalamin (vitamin B-12) 1 tab PO DAILY Supplement 30 days 08/22/21 10/27/22 Rx 1,000 mcg tablet #30 tabs donepezil 10 mg tablet 10 mg PO HS Memory 30 days #30 tabs 08/22/21 10/27/22 Rx dorzolamide 22.3 mg-timolol 6.8 1 drp ophthalmic (eye) BID Eye 08/22/21 10/27/22 Rx mg/mL eye drops health 30 days ##1 fluticasone propionate 50 2 spry intranasal DAILY Allergies 08/22/21 10/27/22 Rx mcg/actuation nasal 30 days ##1 spray,suspension leflunomide 20 mg tablet 20 mg PO DAILY Lupus 30 days #30 08/22/21 10/27/22 Rx tabs memantine 10 mg tablet 10 mg PO BID Memory 30 days #60 08/22/21 10/27/22 Rx tabs montelukast 10 mg tablet 10 mg PO DAILY Allergy symptoms 30 08/22/21 10/27/22 Rx days #30 tabs potassium chloride 20 mEq 20 meq PO BID Potassium Supplement 08/22/21 10/27/22 Rx tablet,extended release(part/cryst) 30 days #60 tabs simvastatin 20 mg tablet 20 mg PO HS Cholesterol 3
--- NOTE | 2022-10-28 10:00 | PC.NURSE ---
notification of blood being ready at 0956, still attempting to gain IV access, multiple attempts made
--- NOTE | 2022-10-28 10:53 | HMH.PHAINT1 ---
Pharmacy Intervention Comments: Home medication reconciliation completed using external fill history and list from PCP office
--- NOTE | 2022-10-28 13:59 | HMH.SCOPE ---
Procedure: Date: 10/28/22 Patient Date of :: 1945 Procedure Performed:: Esophagogastroduodenoscopy with biopsy Indications:: Anemia Melena Dysphagia Performing Provider:: Damir Lagos MD Referring Provider:: Dr. Hazel Sedation:: Monitored anesthesia care Procedure:: After informed consent was obtained the patient was taken to the endoscopy suite. Sedation ensued after the patient was transferred to the left lateral decubitus position. Pulse, blood pressure, and oxygen saturation were monitored throughout the procedure. The endoscope was advanced beyond the duodenal bulb. Retroflexion within the gastric lumen was accomplished. The gastroscope was carefully removed and the patient was transferred to recovery in stable condition. Please see findings and specimens below for detail. Findings:: Gastroesophageal junction at 40 cm Small sliding hiatal hernia No obvious ulceration No sign of active or recent hemorrhage Fairly significant spasticity of esophagus, stomach, and small bowel Lack of relaxation of stomach and small bowel despite significant insufflation efforts (somewhat limited visualization) Mild distal gastropathy Specimens:: Antral biopsy Recommendations:: Continue proton pump inhibition Further work-up for anemia/possible gastrointestinal source pending (UGI/SBFT followed by capsule endoscopy with consideration of colonoscopy) Complications:: No immediate Estimated blood obtained (mL): 1
[2022-10-28 20:43] LABS: Hematocrit 38.9 % (37.0-47.0)
[2022-10-28 20:45] LABS: Hemoglobin 12.3 g/dL (12.2-16.2)
[2022-10-29] VITALS: BP 122/59; PULSE 78; PULSE 90; RESP 16; TEMP 36.9; O2SAT 96
--- NOTE | 2022-10-29 02:12 | PC.NURSE ---
Called into patient room because she thought she was having some chest pain. States now that is a gas pain.
[2022-10-29 04:00] VITALS: BP 109/58; PULSE 82; RESP 16; TEMP 37.1; O2SAT 95; BMI 27.8
--- NOTE | 2022-10-29 04:50 | PC.NURSE ---
No changes noted.
--- NOTE | 2022-10-29 06:52 | EXP.SURG.PN ---
Subjective Patient reports: no new complaints Exam Data for Last 24 hours Vital signs and Labs for Last 24 Hours: Temp Pulse Resp BP Pulse Ox 98.7 F 82 16 109/58 L 95 10/29/22 04:00 10/29/22 04:00 10/29/22 04:00 10/29/22 04:00 10/29/22 04:00 Laboratory Results - last 24 hr 10/28/22 06:20: WBC 4.5 L D, RBC 2.47 L, Hgb 6.9 L, Hct 23.0 L, MCV 93.4, MCH 27.9, MCHC 29.8 L, RDW 20.7 H, Plt Count 328, MPV 8.3, Neut % (Auto) 50.5, Lymph % (Auto) 31.2, [place] % (Auto) 9.4 H, Eos % (Auto) 8.3, Baso % (Auto) 0.5, Neut # (Auto) 2.3, Lymph # (Auto) 1.4, [place] # (Auto) 0.4, Eos # (Auto) 0.4, Baso # (Auto) 0.0 10/28/22 06:20: Sodium 134 L, Potassium 3.3 L, Chloride 103, Carbon Dioxide 28, Anion Gap 6.3, BUN 20 H, Creatinine 1.10 H, Estimated Creat Clear 43, Estimated GFR 48 L, Est GFR ( Amer) 59, Glucose 67 L D, Calcium 8.3 L, Magnesium 2.1 10/28/22 08:40: Blood Type O Positive, Antibody Screen Negative, Crossmatch (AHG) See Detail 10/28/22 20:20: Hgb 12.3 D, Hct 38.9 I & O for Last 24 hours: Intake & Output 10/26/22 10/27/22 10/28/22 10/29/22 11:59 11:59 11:59 11:59 Intake Total 150 / 150 1430 / 1430 Output Total 0 / 0 0 / 0 Balance 150 / 150 1430 / 1430 Weight 137 lb 3 oz 162 lb 14.4 oz Constitutional Constitutional: no acute distress *Routine Respiratory Exam Respiratory: Absent respiratory distress *Routine Cardiovascular Exam Cardiovascular: Absent tachycardia Progress Note: A&P Assessment and plan (1) Acute on chronic anemia: Status: Acute Assessment and plan: No definitive source noted on esophagogastroduodenoscopy. UGI/SBFT followed by capsule endoscopy in near future reasonable (2) Melena: Status: Acute (3) Difficulty swallowing: Status: Acute
[2022-10-29 07:21] VITALS: BP 145/78; PULSE 86; RESP 17; TEMP 36.4; O2SAT 99
--- NOTE | 2022-10-29 09:42 | EXP.DC.SUM ---
General Admission date:: 10/28/22 Discharge date: 10/29/22 HPI HPI HPI: This is a 77-year-old female seen in consultation of Dr. Hazel for evaluation regarding anemia and dark stools . Please see HPI from admission H&P for the below. Forwarded from admission H&P: 77-year-old female with multiple medical problems including RA, coronary disease with LAD stent placed in August 2022, and multiple arthritis issues who takes multiple medications who came to the emergency department with upper epigastric pain that is burning. She had been seen by me after her stent and placed on Carafate and proton pump inhibitors. She unfortunately has continued to lose hemoglobin levels in spite of iron therapy and was seen by GI in [place]-Dr. Valdovinos, who wanted to put off her scope for a while after stent placement. She came to the emergency department as it was intractable epigastric pain and was found to have low hemoglobin and was admitted to hospital. Hospital Course Hospital Course Hospital Course: Patient was admitted. Troponins were negative. Given her recent cardiac work-up cardiac disease was ruled out. Given her drop in hemoglobin and her gastric pain surgery was consulted and they appropriately subjected her to EGD the day of admission. This was really unrevealing, exam was somewhat limited by spasticity and her presbyesophagitis and hiatal hernia. However no active bleeding was seen. Patient received 2 units of packed cells and felt much better. Hemoglobin this morning is remained stable and patient has much less pain. Patient will be discharged home. We will follow her as an outpatient. We will set up small bowel follow-through with consideration for capsule enteroscopy once this is done. Exam Data for Last 24 hours Vital signs and Labs for Last 24 Hours: Temp Pulse Resp BP Pulse Ox 97.6 F 86 17 145/78 H 99 10/29/22 07:21 10/29/22 07:21 10/29/22 07:21 10/29/22 07:21 10/29/22 07:21 Laboratory Results - last 24 hr 10/28/22 08:40: Blood Type O Positive, Antibody Screen Negative, Crossmatch (AHG) See Detail 10/28/22 20:20: Hgb 12.3 D, Hct 38.9 I & O for Last 24 hours: Intake & Output 10/26/22 10/27/22 10/28/22 10/29/22 11:59 11:59 11:59 11:59 Intake Total 150 / 150 1909 Output Total 0 / 0 0 / 0 Balance 150 / 150 1909 Weight 137 lb 3 oz 162 lb 14.4 oz Narrative: EKG is sinus rhythm with old anteroseptal ME pattern and a rate of 62 bpm. Constitutional Constitutional: no acute distress and average body habitus *Routine HEENT Exam Head: Present normocephalic and atraumatic ENT: Present mucous membranes moist *Routine Neck Exam Neck: Present supple, full ROM and normal carotid upstroke; Absent JVD, carotid bruit or lymphadenopathy *Routine Respiratory Exam Respiratory: Present CTA bilaterally, normal respiratory effort, able to speak in complete sentences and symmetric chest movement *Routine Cardiovascular Exam Cardiovascular: Present RRR, Normal S1 and Normal S2; Absent murmur or gallop *Routine Abdominal Exam Abdominal: Present soft and normoactive bowel sounds; Absent tenderness, distended or organomegaly *Routine Extremities Exam Extremities: Present full ROM, pulses intact and normal capillary refill; Absent cyanosis, clubbing or edema *Routine Skin Exam Skin: Present intact and warm; Absent erythema *Routine Neurological Exam Neurological: Present alert, oriented X3 and CN II-XII intact; Absent sensory deficit or motor deficit Routine Psychiatric Exam Psychiatric: Present normal affect Results Data Completed and Pending Labs on day of discharge: Labs from last 24 hours 10/28/22 10/28/22 20:20 08:40 Hgb 12.3 D Hct 38.9 Blood Type O Positive Antibody Screen Negative Crossmatch (AHG) See Detail DS: Diagnosis Discharge Diagnosis (1) Acute on chronic anemia: Status: Acute (2) Melena: Status: Acute (3) Difficulty swallowing
--- NOTE | 2022-10-29 11:23 | HMH.PHAINT1 ---
Pharmacy Intervention Comments: Discussed discharge medications with patient. Patient verbalized understanding and had no questions at this time
--- NOTE | 2022-10-30 14:25 | CARE MANAGER ---
Called and spoke with patient r/t discharge from hospital on 10/29/22. Patient states that she is very lethargic and may ask the doctor at f/u to do blood work, she feels her H&H may be down. She wanted to know what Hgb was when she was here after the infusion, which I looked up for her (it was over 12). She is aware of f/u appointments and had no new medication ordered at discharge.
== END 2022-10-29 11:22 | disposition home or self-care (01) | DRG 812 ==
LOC: ER 21:13 → 2ND 10-28 00:11
PROVIDERS: Emergency Medicine; Surgery; Admitting Provider Family Medicine; Emergency Provider Emergency Medicine; Visit Provider Internal Medicine Adolescent Medicine
PROC: 0DJ08ZZ Inspection of Upper Intestinal Tract, Via Natural or Artificial Opening Endoscopic (ICD-10-PCS; CPT 43235; principal; 2022-10-28 13:30)
DX: D64.9 Anemia, unspecified (principal); I25.110 Atherosclerotic heart disease of native coronary artery with unstable angina pectoris; R10.13 Epigastric pain; I11.0 Hypertensive heart disease with heart failure; J44.9 Chronic obstructive pulmonary disease, unspecified; E78.5 Hyperlipidemia, unspecified; Z79.899 Other long term (current) drug therapy; M06.9 Rheumatoid arthritis, unspecified; K31.9 Disease of stomach and duodenum, unspecified
CPT/HCPCS: 43239; 36415; 71045; 80048; 80053; 83735; 84484; 85014; 85018; 85025; 86850; 88305; 93005; 99285; C9803; G0378; P9016; U0003; U0005

== ENCOUNTER → 2022-11-02 14:34 | Outpatient (CLI) | payer MEDICARE, MEDICAID, SELFPAY ==
[2022-11-02 15:04] LABS: Basophils % 0.6 % (0.1-2.0); Eosinophils # 0.6 K/mm3 (0.0-0.4); Eosinophils % 8.3 % (0.1-12.0); Hematocrit 37.6 % (37.0-47.0); Hemoglobin 11.9 g/dL (12.2-16.2); Lymphocytes # 1.4 K/mm3 (0.7-4.5); Lymphocytes % 19.2 % (10-50); Mean Corpuscular HGB Conc 31.7 g/dL (31.8-35.4); Mean Corpuscular Hemoglobin 30.4 pg (27.0-31.2); Mean Corpuscular Volume 95.9 fl (81-99); Mean Platelet Volume 7.9 fl (7.4-10.4); Monocytes # 0.5 K/mm3 (0.1-1.0); Monocytes % 7.4 % (1.7-9.3); Neutrophils # 4.7 K/mm3 (1.8-7.8); Neutrophils % 64.5 % (37.0-80.0); Platelet Count 329 K/mm3 (142-424); Red Blood Count 3.92 M/mm3 (4.20-5.40); Red Cell Distribution Width 19.1 % (11.5-17.5); White Blood Count 7.3 K/mm3 (4.8-10.8)
[2022-11-02 15:54] LABS: Alanine Aminotransferase 8 U/L (12-78); Albumin Level 3.6 g/dl (3.5-5.0); Albumin/Globulin Ratio 1.4 (1.1-1.8); Alkaline Phosphatase 140 U/L (38-126); Anion Gap 7.6 mEq/L (5-15); Aspartate Amino Transferase 29 U/L (14-36); Bilirubin,Total 0.3 mg/dl (0.2-1.3); Blood Urea Nitrogen 14 mg/dl (7-17); Calcium 8.7 mg/dl (8.4-10.2); Carbon Dioxide 29 mmol/L (22.0-30.0); Chloride 100 mmol/L (98-107); Estimated Glomerular Filt Rate 40 ml/min (>60); GFR (African American) 48 ML/MIN (>60); Globulin 2.6 g/dL (1.3-3.2); Glucose 81 mg/dl (74-100); Potassium 3.6 mmoL/L (3.5-5.1); Sodium 133 mmol/L (136-145); Total Protein,Serum 6.2 g/dl (6.3-8.2)
== END ==
PROVIDERS: PCP Internal Medicine Adolescent Medicine; Visit Provider Internal Medicine Adolescent Medicine
DX: D50.0 Iron deficiency anemia secondary to blood loss (chronic) (principal)
CPT/HCPCS: 36415; 80053; 85025

== ENCOUNTER → 2022-11-14 15:06 | Outpatient (CLI) | payer MEDICARE, MEDICAID, SELFPAY ==
--- NOTE | 2022-11-14 15:22 | XR_ITS ---
PROCEDURE INFORMATION: Exam: XR Right Forearm Exam date and time: 11/14/2022 3:24 PM Age: 77 years old Clinical indication: Lower or forearm; Right; Patient HX: Pain x days, nkt TECHNIQUE: Imaging protocol: Radiologic exam of the right forearm. Views: 2 views. Total images: 2 COMPARISON: No relevant prior studies available. FINDINGS: Bones/joints: Mild osteopenia. No acute fracture or joint dislocation. Mild degenerative changes right elbow and wrist with narrowing of the radiocarpal joint. Minor chondrocalcinosis right wrist. No concerning bone lesions. Benign-appearing periostitis midshaft radius likely response of chronic/remote injury versus stress reaction. Correlate clinically for signs of infection. Soft tissues: Unremarkable soft tissues. IMPRESSION: 1. No acute osseous abnormality. 2. Benign-appearing periostitis midshaft radius. Differential as above.
--- NOTE | 2022-11-14 15:22 | XR_ITS ---
PROCEDURE INFORMATION: Exam: XR Right Humerus Exam date and time: 11/14/2022 3:18 PM Age: 77 years old Clinical indication: Upper arm; Right; Prior surgery; Surgery date: 6+ months; Surgery type: Rotator cuff SX; Patient HX: Pain x days, nkt TECHNIQUE: Imaging protocol: Radiologic exam of the right humerus. Views: 2 or more views. Total images: 2 COMPARISON: CR XR CHEST PORTABLE 10/27/2022 7:15 PM FINDINGS: Bones/joints: Osteopenia. No acute fracture or joint dislocation. Surgical anchor humeral head from prior rotator cuff surgery. Loss of subacromial space. Calcification adjacent to the greater tuberosity compatible with chronic calcific tendinitis or bursitis. Mild degenerative changes of the elbow , AC joint and glenohumeral articulations. No concerning bone lesions. Soft tissues: Unremarkable soft tissues. IMPRESSION: 1. No acute osseous abnormality. 2. Mild osteopenia 3. Degenerative and postsurgical changes as described.
== END ==
PROVIDERS: PCP Internal Medicine Adolescent Medicine; Visit Provider Internal Medicine Adolescent Medicine
DX: M79.621 Pain in right upper arm (principal); M79.631 Pain in right forearm; W19.XXXD Unspecified fall, subsequent encounter
CPT/HCPCS: 73060; 73090

== ENCOUNTER → 2022-11-18 08:00 | Outpatient (CLI) | payer MEDICARE, MEDICAID, SELFPAY ==
--- NOTE | 2022-11-18 08:01 | FL_ITS ---
FINAL REPORT CLINICAL HISTORY: anemia ft: 2:30 FINDINGS: UPPER GI WITH SBFT HISTORY: Anemia PROCEDURE: The patient ingested barium. Effervescent crystals were also administered. Spot and overhead films were obtained. Additional barium was administered for a SBFT. Fluoroscopy time: 2 minutes 30 seconds. 17 radiographs were obtained. FINDINGS: UGI: The esophagus is normal. There is no hiatal hernia. There is no gastroesophageal reflux. Peristalsis is normal. The rugal fold pattern of the stomach is normal. The duodenal bulb is normal. SBFT: The product manager e commerce film is normal. There is no evidence of obstruction. The mucosal fold pattern is normal. The terminal ilium is normal. IMPRESSION: Unremarkable upper GI and small bowel follow-through. Films reviewed , interpreted and dictated by Dr. Fatoumata Larios. Transcribed by Russ Sanderson PA-C. Reviewed, Interpreted and Dictated by Fatoumata Larios MD Transcribed by WARREN Carson Authenticated and [facility]
[2022-11-18 09:29] LABS: Microscopic, Urine URINE MICROSCOPIC (MICROSCOPIC)
[2022-11-18 10:00] LABS: Basophils # 0.1 K/mm3 (0-0.2); Basophils % 0.7 % (0.1-2.0); Eosinophils # 0.9 K/mm3 (0.0-0.4); Eosinophils % 10.9 % (0.1-12.0); Hematocrit 40.2 % (37.0-47.0); Hemoglobin 12.5 g/dL (12.2-16.2); Lymphocytes % 23.6 % (10-50); Mean Corpuscular Hemoglobin 29.1 pg (27.0-31.2); Mean Corpuscular Volume 93.9 fl (81-99); Monocytes # 0.6 K/mm3 (0.1-1.0); Monocytes % 6.8 % (1.7-9.3); Neutrophils # 4.9 K/mm3 (1.8-7.8); Platelet Count 399 K/mm3 (142-424); Red Blood Count 4.29 M/mm3 (4.20-5.40); Red Cell Distribution Width 17.2 % (11.5-17.5); White Blood Count 8.5 K/mm3 (4.8-10.8)
[2022-11-18 11:07] LABS: Erythrocyte Sedimentation Rate 66 mm/hr (0-30)
[2022-11-18 11:34] LABS: Chloride 97 mmol/L (98-107); Potassium 3.5 mmoL/L (3.5-5.1); Sodium 133 mmol/L (136-145)
[2022-11-18 11:37] LABS: Alanine Aminotransferase 11 U/L (12-78); Albumin Level 3.9 g/dl (3.5-5.0); Albumin/Globulin Ratio 1.3 (1.1-1.8); Alkaline Phosphatase 162 U/L (38-126); Anion Gap 11.5 mEq/L (5-15); Aspartate Amino Transferase 32 U/L (14-36); Bilirubin,Total 0.4 mg/dl (0.2-1.3); Blood Urea Nitrogen 15 mg/dl (7-17); Calcium 8.8 mg/dl (8.4-10.2); Carbon Dioxide 28 mmol/L (22.0-30.0); Estimated Glomerular Filt Rate 48 ml/min (>60); GFR (African American) 59 ML/MIN (>60); Globulin 3.1 g/dL (1.3-3.2); Glucose 87 mg/dl (74-100)
[2022-11-18 11:51] LABS: Appearance,Urine SL CLOUDY (Clear); Bilirubin,Urine Negative (Negative); Blood, Urine TRACE-I (Negative); Color,Urine YELLOW (Yellow); Glucose,Urine (UA) 1+ (Negative); Ketones,Urine Negative (Negative); Leukocyte Esterase,Urine 1+ (Negative); Nitrate,Urine Negative (Negative); Protein,Urine TRACE (Negative); Specific Gravity, Urine 1.015 (1.005-1.030); Urobilinogen,Urine 0.2 EU/dl (0.2)
[2022-11-18 11:53] LABS: 25-OH Vitamin D, Total 51.8 ng/mL (30-100); Uric Acid 4.5 mg/dl (2.5-6.2)
[2022-11-18 11:57] LABS: WBC,Urine 50-100 #/hpf (0-3)
[2022-11-18 11:58] LABS: Bacteria,Urine 1+ /lpf; RBC,Urine Occasional #/hpf (0-3); Squamous Epithelial Cell,Urine Occasional #/hpf (0-5)
[2022-11-19 12:04] LABS: Complement C3 195 mg/dL (82-167)
[2022-11-20 13:13] LABS: dsDNA AB Crithidia Negative (Negative)
== END ==
PROVIDERS: Nurse Practitioner Family; PCP Internal Medicine Adolescent Medicine; Visit Provider Surgery
DX: I27.20 Pulmonary hypertension, unspecified; D64.9 Anemia, unspecified; I73.00 Raynaud's syndrome without gangrene; M06.9 Rheumatoid arthritis, unspecified; M25.551 Pain in right hip; M25.561 Pain in right knee; M19.90 Unspecified osteoarthritis, unspecified site; M48.00 Spinal stenosis, site unspecified; M32.9 Systemic lupus erythematosus, unspecified; I10 Essential (primary) hypertension; B96.29 Other Escherichia coli [E. coli] as the cause of diseases classified elsewhere; R82.90 Unspecified abnormal findings in urine; E55.9 Vitamin D deficiency, unspecified; R10.13 Epigastric pain
CPT/HCPCS: 36415; 74246; 74248; 80053; 81001; 82306; 84550; 85025; 85651; 86161; 86225; 87086; 87088; 87186

== ENCOUNTER → 2022-11-30 17:20 | Outpatient (CLI) | payer MEDICARE, MEDICAID, SELFPAY ==
--- NOTE | 2022-11-30 17:23 | MR_ITS ---
PROCEDURE INFORMATION: Exam: MR Right Upper Extremity Joint Without Contrast; Shoulder Exam date and time: 11/30/2022 5:28 PM Age: 77 years old Clinical indication: Pain; Shoulder; Right; Prior surgery; Surgery date: 6+ months; Additional info: Pain in right shoulder. Prior HX shoulder surgery. Limited rom. Sawyer a popping in shoulder 3 months ago. Weakness in arm. TECHNIQUE: Imaging protocol: Magnetic resonance imaging of the right upper extremity without contrast. Exam focused on the shoulder. COMPARISON: 1. CR XR HUMERUS RT 11/14/2022 3:[address] HIGH RESOLUTION CHEST 08/27/2022 1:27 PM FINDINGS: Limitations: Motion artifact. Bones/joints: A mild effusion involves the glenohumeral joint. Joint fluid extends through the full thickness rotator cuff tear into the subacromial-subdeltoid bursa. There is no acute fracture or dislocation. No aggressive bone lesions are present. Surgical tracks in the humeral head are consistent with prior rotator cuff repair. The undersurface of the acromion is flattened, suggestive of prior acromioplasty. The humeral head demonstrates mild anterior subluxation. Glenoid labrum: Evaluation of the labrum is limited on this study, but degenerative tearing of the labrum would not be unusual in a patient of this age. Supraspinatus tendon: A full-thickness tear involves the entire supraspinatus tendon. The tendon is retracted approximately 3 cm. Infraspinatus tendon: A full-thickness tear involves the entire infraspinatus tendon. The tendon is retracted over 2.5 cm. Subscapularis tendon: A full-thickness tear involves the majority of the subscapularis tendon. A few of the inferior fibers appear to remain intact. The tendon is retracted almost 1.5 cm. Teres minor tendon: Mild tendinosis involves the teres minor tendon. Tendon of biceps brachii: The intra-articular portion of the long head of the biceps tendon is not visualized. Nonvisualization may be due to rupture, severe tendinosis or prior tenodesis. Glenohumeral ligaments: Unremarkable as visualized. Muscles: Severe atrophy involves the supraspinatus and infraspinatus muscles. Moderate atrophy involves the superior two thirds of the subscapularis muscle. Mild edema involves the teres minor muscle. Soft tissues: There are normal postoperative punctate foci of micrometallic artifact in the soft tissues. IMPRESSION: 1. Full-thickness tear of the entire supraspinatus tendon with approximately 3 cm retraction and severe muscle atrophy. 2. Full-thickness tear of the entire infraspinatus tendon with over 2.5 cm retraction and severe muscle atrophy. 3. Full-thickness tear involving the majority of the subscapularis tendon with approximately 1.5 cm retraction and moderate muscle atrophy. 4. Postoperative changes in the humeral head and soft tissues from prior rotator cuff repair. 5. Proximally non-visualized long head of the biceps tendon, which may be due to prior tenodesis, rupture, or severe tendinosis. 6. Study degraded by motion artifact.
== END ==
PROVIDERS: PCP Internal Medicine Adolescent Medicine; Visit Provider Nurse Practitioner Family
DX: M25.511 Pain in right shoulder (principal)
CPT/HCPCS: 73221

== ENCOUNTER → 2022-12-10 12:19 | Outpatient (CLI) | payer MEDICARE, MEDICAID, SELFPAY ==
[2022-12-10 14:47] LABS: Chloride 94 mmol/L (98-107); Potassium 3.6 mmoL/L (3.5-5.1); Sodium 130 mmol/L (136-145)
[2022-12-10 14:51] LABS: Anion Gap 9.6 mEq/L (5-15); Blood Urea Nitrogen 13 mg/dl (7-17); Calcium 8.6 mg/dl (8.4-10.2); Carbon Dioxide 30 mmol/L (22.0-30.0); Estimated Glomerular Filt Rate 44 ml/min (>60); GFR (African American) 53 ML/MIN (>60); Glucose 70 mg/dl (74-100)
== END ==
PROVIDERS: PCP Internal Medicine Adolescent Medicine; Visit Provider Nurse Practitioner Family
DX: N28.9 Disorder of kidney and ureter, unspecified (principal)
CPT/HCPCS: 36415; 80048

== ENCOUNTER → 2023-01-25 11:28 | Outpatient (CLI) | payer MEDICARE, MEDICAID, SELFPAY ==
--- NOTE | 2023-01-25 | CA_ITS ---
APPROVED REPORT Exam: Pharmacologic Technologist: Lolita Gutierrez, Ht: 5 ft 4 in Wt: 174 lbs BSA: 1.84 m2 HR: 73 bpm BP: 146/74 mmHg 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 Medications: Lisinopril,,,,, Omeprazole,,,,, Simvastatin,,,,, Gabapentin,,,,, Carvedilol,,,,, Citalopram,,,,, Montelukast,,,,, CHlorthalidone,,,,, Vit C,,,,, DONEPEZIL,,,,, Meclizine,,,,, BuPROPION,,,,, Cardiac Risk Factors: HTN, Hyperlipidemia, Smoking Stress Test Details Test: LEXISCAN HR Resting HR: 73 bpm Max Heart Rate (APMHR): 145.932462 bpm Max HR Achieved: 94 bpm Target HR (85% APMHR): 123.069865 bpm % of APMHR: 64.83 Recovery HR: 80 bpm BP Resting BP: 146/74 mmHg Max BP: 148/66 mmHg Recovery BP: 142.0/68.0 mmHg ECG Clinical Exercise duration: 04:16 min Highest Stage Achieved: Exercise capacity: 1.0 METs Stress ECG Conclusion During lexiscan pt experinced nausea, chest pain, SOA, and headache. Rare PAC noted. <1mm ST depression. Non diagnostic, target HR not achieved, no ischemic changes. Test Summary REST . . . . . . . Sitting REST 06:08 . . 73 . 146/ 74 . . Stage 1 01:00 . . 87 . . . . Stage 2 01:00 . . 91 . . . . Stage 3 01:00 . . 82 . 131/ 65 . . Stage 4 01:00 . . 83 . 140/ 67 . . Stage 4 01:16 . . 83 . 134/ 62 . Stop exercise at 04:16 RECOVERY 01:00 . . 83 . . . . RECOVERY 02:00 . . 79 . . . . RECOVERY 03:00 . . 78 . 142/ 68 . . RECOVERY 04:00 . . 76 . 145/ 68 . . RECOVERY 04:53 . . 79 . 148/ 66 . . Electronically signed by : Pato Yo MD 01/26/2023 09:52:49
--- NOTE | 2023-01-25 11:34 | NM_ITS ---
APPROVED REPORT Exam: Nuclear Stress Test Indication: CAD, HTN, HYPERLIPIDEMIA, FM HX, C.P., SOB, FATIGUE Patient Location: Outpatient Stress Tech: Lolita Gutierrez NH Tech:Kalani SaraviaLANDON RT (R)(N)(M) Ht: 5 ft 4 in Wt: 170 lbs Bra Size: 40 B HR: 55 bpm BP: 123/48 mmHg BSA: 1.83 m2 TID: 0.99 BMI: 29.1 History: CAD, HTN, HYPERLIPIDEMIA, FM HX, C.P., SOB, FATIGUE PT. HAS TORN ROTATOR CUFF AND CANNOT LAY PRONE Procedure: Patient received 0.4 mg of intravenous Lexiscan, resting heart rate 55 bpm, resting blood pressure 123/48 mmHg, with Lexiscan maximum heart rate achieved was 84 bpm which is % of the maximum predicted heart rate and blood pressure was 131/65 mmHg. With Lexiscan, patient denied any complaint of chest pain. Cardiac Stress and Resting SPECT Images: Cardiac Stress and Resting SPECT images were obtained using technetium 99m Myoview 31.9 mCi stress and 10.51 mCi at rest. Normal myocardial activity at both stress and rest. Gated images calculated ejection fraction 74% with normal wall motion Conclusion: No scintigraphic evidence of Lexiscan induced myocardial ischemia with normal ejection fraction normal wall motion Electronically signed by : Pato Yo MD 01/26/2023 13:08:28
== END ==
PROVIDERS: PCP Internal Medicine Adolescent Medicine; Visit Provider Nurse Practitioner
DX: D64.9 Anemia, unspecified (principal); E66.3 Overweight; I11.9 Hypertensive heart disease without heart failure; I73.9 Peripheral vascular disease, unspecified; N28.9 Disorder of kidney and ureter, unspecified; I20.8 Other forms of angina pectoris; Z68.29 Body mass index [BMI] 29.0-29.9, adult
CPT/HCPCS: 78452; 93017; A9502; J2785

== ENCOUNTER 2023-02-11 12:35 | Outpatient (CLI) | payer MEDICARE, MEDICAID, SELFPAY ==
[2023-02-11 12:54] LABS: Microscopic, Urine URINE MICROSCOPIC (MICROSCOPIC)
[2023-02-11 14:05] LABS: Alanine Aminotransferase 10 U/L (12-78); Albumin Level 3.5 g/dl (3.5-5.0); Albumin/Globulin Ratio 1.3 (1.1-1.8); Alkaline Phosphatase 157 U/L (38-126); Anion Gap 17.7 mEq/L (5-15); Aspartate Amino Transferase 33 U/L (14-36); Bilirubin,Total 0.3 mg/dl (0.2-1.3); Blood Urea Nitrogen 23 mg/dl (7-17); Carbon Dioxide 28 mmol/L (22.0-30.0); Chloride 95 mmol/L (98-107); Estimated Glomerular Filt Rate 44 ml/min (>60); GFR (African American) 53 ML/MIN (>60); Globulin 2.7 g/dL (1.3-3.2); Glucose 63 mg/dl (74-100); Potassium 3.7 mmoL/L (3.5-5.1); Sodium 137 mmol/L (136-145); Total Protein,Serum 6.2 g/dl (6.3-8.2)
[2023-02-11 14:09] LABS: Basophils % 0.5 % (0.1-2.0); Eosinophils # 0.7 K/mm3 (0.0-0.4); Hematocrit 40.1 % (37.0-47.0); Hemoglobin 12.1 g/dL (12.2-16.2); Lymphocytes # 1.2 K/mm3 (0.7-4.5); Mean Corpuscular HGB Conc 30.2 g/dL (31.8-35.4); Mean Corpuscular Volume 89.4 fl (81-99); Mean Platelet Volume 8.4 fl (7.4-10.4); Monocytes # 0.5 K/mm3 (0.1-1.0); Monocytes % 7.4 % (1.7-9.3); Neutrophils # 3.7 K/mm3 (1.8-7.8); Neutrophils % 60.2 % (37.0-80.0); Platelet Count 228 K/mm3 (142-424); Red Blood Count 4.48 M/mm3 (4.20-5.40); Red Cell Distribution Width 16.2 % (11.5-17.5); White Blood Count 6.2 K/mm3 (4.8-10.8)
[2023-02-11 14:30] VITALS: BP 150/74; PULSE 84; RESP 18; O2SAT 99
[2023-02-11 14:45] LABS: Appearance,Urine CLEAR (Clear); Bilirubin,Urine Negative (Negative); Blood, Urine Negative (Negative); Color,Urine YELLOW (Yellow); Glucose,Urine (UA) Negative (Negative); Ketones,Urine Negative (Negative); Leukocyte Esterase,Urine Negative (Negative); Nitrate,Urine Negative (Negative); PH,Urine 5.5 (5.0-8.5); Protein,Urine Negative (Negative); Urobilinogen,Urine 0.2 EU/dl (0.2)
[2023-02-11 14:57] LABS: Squamous Epithelial Cell,Urine Occasional #/hpf (0-5); WBC,Urine Occasional #/hpf (0-3)
[2023-02-11 16:02] VITALS: BP 145/71; PULSE 82; RESP 18; TEMP 36.9; O2SAT 98
== END 2023-02-11 16:03 | disposition home or self-care (01) ==
LOC: LAB 12:36 → INF 14:20
PROVIDERS: Nurse Practitioner Family; PCP Internal Medicine Adolescent Medicine; Visit Provider Internal Medicine Adolescent Medicine
DX: E86.0 Dehydration (principal); R41.0 Disorientation, unspecified; B96.29 Other Escherichia coli [E. coli] as the cause of diseases classified elsewhere
CPT/HCPCS: 36415; 80053; 81001; 85025; 87086; 87088; 87186; 96360; 96361

== ENCOUNTER → 2023-02-12 15:43 | Outpatient (CLI) | payer MEDICARE, MEDICAID, SELFPAY ==
--- NOTE | 2023-02-12 15:49 | CA_ITS ---
FINAL REPORT TECHNIQUE: Color Doppler, duplex Doppler and cano scale sonography of the bilateral neck arterial vasculature was performed. Velocities were measured in the carotid arteries. Stenosis evaluation based on the validated velocity criteria. CLINICAL HISTORY: KAYKAY,EX SMOKER,HTN FINDINGS: The peak systolic velocity of the right common carotid artery is 108 cm/s. The peak systolic velocity of the right internal carotid artery is 142 cm/s and end diastolic velocity 26 cm/s. A moderate amount of plaque is present. The right external carotid artery is patent. The right vertebral artery is patent with antegrade flow. ICA/CCA ratio: 2.0 The peak systolic velocity of the left common carotid artery is 88 cm/s. The peak systolic velocity of the left internal carotid artery is 233 cm/s and end diastolic velocity 45 cm/s. A moderate amount of plaque is present. The left external carotid artery is patent.The left vertebral artery is patent with antegrade flow. ICA/CCA ratio: 3.0 IMPRESSION: Less than 50% ICA stenosis on the right. Greater than 70% stenosis of the left ICA. Bilateral patent vertebral arteries with antegrade flow. Recommend CT angiogram or catheter directed angiogram. Reviewed, Interpreted and Dictated by Vasquez Timmons III, MD Transcribed by Tatiana Lr Authenticated and [facility]
== END ==
PROVIDERS: PCP Internal Medicine Adolescent Medicine; Visit Provider Nurse Practitioner Family
DX: I65.23 Occlusion and stenosis of bilateral carotid arteries (principal)
CPT/HCPCS: 93880

== ENCOUNTER → 2023-02-18 13:11 | Outpatient (CLI) | payer MEDICARE, MEDICAID, SELFPAY ==
--- NOTE | 2023-02-18 13:18 | CA_ITS ---
FINAL REPORT TECHNIQUE: Bilateral lower extremity venous duplex was performed with augmentation and compression. CLINICAL HISTORY: chronic pedal edema FINDINGS: Proper flow is seen throughout the deep venous systems bilaterally. There is no evidence of deep venous thrombosis. IMPRESSION: No evidence of deep venous thrombosis. Reviewed, Interpreted and Dictated by Josiah Russell MD Transcribed by Tatiana Lr Authenticated and [facility]
== END ==
PROVIDERS: PCP Internal Medicine Adolescent Medicine; Visit Provider Nurse Practitioner Family
DX: R60.0 Localized edema (principal)
CPT/HCPCS: 93970

== ENCOUNTER 2023-02-20 12:22 | Emergency (ER) | payer MEDICARE, MEDICAID, SELFPAY ==
[2023-02-20 12:24] VITALS: BP 156/78; PULSE 87; RESP 16; TEMP 36.9; O2SAT 97; BMI 31.9
--- NOTE | 2023-02-20 12:43 | HMH.EDGENADL ---
Discharge Plan Disposition Patient Disposition: Home, Self-Care Prescriptions Prescriptions: No Action ferrous gluconate 240 mg (27 mg iron) tablet 240 mg PO DAILY chlorthalidone 25 mg tablet 12.5 mg PO DAILY bumetanide 1 mg tablet 3 mg PO DAILY Qty: 90 3RF donepezil 10 mg tablet 10 mg PO HS 30 Days Qty: 30 0RF cyanocobalamin (vitamin B-12) 1,000 MCG tablet 1 tab PO DAILY 30 Days Qty: 30 0RF leflunomide 20 mg tablet 20 mg PO DAILY 30 Days Qty: 30 0RF potassium chloride 20 MEQ tablet 20 meq PO BID 30 Days Qty: 60 0RF simvastatin 20 mg tablet 20 mg PO HS 30 Days Qty: 30 0RF ascorbate calcium (vitamin C) 500 mg tablet 500 mg PO DAILY 30 Days Qty: 30 0RF dorzolamide-timolol 22.3-6.8 mg/mL drops 1 drp OPHTHALMIC BID 30 Days Qty: 1 0RF montelukast 10 MG tablet 10 mg PO DAILY 30 Days Qty: 30 0RF fluticasone propionate 50 mcg/actuation spray,suspension 2 spry INTRANASAL DAILY 30 Days Qty: 1 0RF cholecalciferol (vitamin D3) 1,000 unit capsule 1 cap PO BID 30 Days Qty: 60 0RF memantine 10 MG tablet 10 mg PO BID 30 Days Qty: 60 0RF cetirizine 10 mg capsule 10 mg PO DAILY 30 Days Qty: 30 0RF bupropion HCl 100 mg tablet 100 mg PO AM Label Comments: TAKE ONE TABLET BY MOUTH EVERY MORNING AND TAKE TWO TABLETS BY MOUTH EVERY DAY AT BEDTIME bupropion HCl 100 MG tablet 200 mg PO HS colchicine [Mitigare] 0.6 mg capsule 0.6 mg PO DAILY Label Comments: TAKE ONE CAPSULE BY MOUTH EVERY DAY primidone 250 mg tablet 250 mg PO HS methimazole 5 MG tablet 5 mg PO TID carbidopa-levodopa 25-100 mg tablet 1 tab PO TID Label Comments: TAKE ONE TABLET THREE TIMES DAILY MAY take with OR without food Rx Instructions: may take with or without food citalopram 10 mg tablet 10 mg PO DAILY Label Comments: TAKE ONE TABLET BY MOUTH EVERY DAY meclizine 25 mg tablet 25 mg PO TIDP PRN (Reason: Dizziness) Label Comments: TAKE ONE TABLET BY MOUTH THREE TIMES DAILY NEEDED gabapentin 300 mg capsule 300 mg PO Q4H Label Comments: TAKE ONE CAPSULE BY MOUTH FOUR TIMES DAILY MAY CAUSE DROWSINESS hydrocortisone 2.5 % cream 1 applic TOPICAL BID Label Comments: APPLY TOPICALLY TO THE AFFECTED AREA(S) TWICE DAILY omeprazole 20 mg capsule,delayed release(DR/EC) 20 mg PO BID lisinopril 10 mg tablet 10 mg PO BID Label Comments: TAKE ONE TABLET BY MOUTH TWICE DAILY carvedilol [Coreg] 12.5 mg tablet 12.5 mg PO BID Rx Instructions: must administer with a meal/food Referrals Follow up/Referrals: Miller Hazel MD [Primary Care Provider] - See instructions Activity Restrictions/Add. Instructions Additional Instructions/Restrictions: Today your emergency evaluation did not yield any emergent medical condition. Please continue to follow-up with your primary care doctor and your neurologist regarding your carotid stenosis as well as with your ditto machine operator regarding your chronic joint pains. Return to the emergency part with any worsening symptoms. Clinical Impressions Clinical Impression: Chronic joint pain, Back pain, lumbosacral, Lower extremity pain, Acute pain of both shoulders, Dizziness Discharge ED Provider: Robert Fine General Adult HPI General Chief complaint: Weakness Stated complaint: Phy Ref Back Pain,Dizziness, Swollen legs Time Seen by Provider: 02/20/23 12:43 History of Present Illness HPI narrative: Patient is a 77-year-old female here with multiple complaints. She states that she is having dizziness, shoulder pain, lower extremity pain, knee pain, and lower back pain. She states that of all the complaints that was her lower back pain which brought her to the emergency department as this was not getting better. She was recently diagnosed with carotid stenosis and this is being managed outpatient. [place]
--- NOTE | 2023-02-20 12:47 | ECG_ITS ---
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
[2023-02-20 13:00] VITALS: BP 156/82; PULSE 82; RESP 18; O2SAT 99
--- NOTE | 2023-02-20 13:12 | XR_ITS ---
PROCEDURE INFORMATION: Exam: XR Chest Exam date and time: 02/20/2023 1:23 PM Age: 77 years old Clinical indication: Dyspnea; Additional info: Dyspnea, syncopy, dizziness, HX of stents TECHNIQUE: Imaging protocol: Radiologic exam of the chest. Views: 1 view. COMPARISON: CR XR CHEST PORTABLE 10/27/2022 7:15 PM FINDINGS: Lungs: Unremarkable. No consolidation. No significant interval changes. Incidental granuloma right mid lung zone unchanged. Pleural spaces: Unremarkable. No pleural effusion. No pneumothorax. Heart/Mediastinum: Unremarkable. No cardiomegaly. Bones/joints: Spinal instrumentation lower thoracic and upper lumbar spine partially visualized unchanged. No acute bony abnormalities. IMPRESSION: Stable chest. No active disease.
[2023-02-20 13:31] VITALS: BP 168/83; PULSE 78; RESP 18; O2SAT 96
[2023-02-20 13:58] LABS: Appearance,Urine CLEAR (Clear); Bilirubin,Urine Negative (Negative); Blood, Urine Negative (Negative); Color,Urine YELLOW (Yellow); Glucose,Urine (UA) Negative (Negative); Ketones,Urine Negative (Negative); Leukocyte Esterase,Urine Negative (Negative); Microscopic, Urine URINE MICROSCOPIC (MICROSCOPIC); Nitrate,Urine Negative (Negative); Protein,Urine Negative (Negative); Urobilinogen,Urine 0.2 EU/dl (0.2)
[2023-02-20 14:01] VITALS: BP 130/59; PULSE 76; RESP 14; O2SAT 99
[2023-02-20 14:01] LABS: Chloride 99 mmol/L (98-107); Potassium 3.6 mmoL/L (3.5-5.1); Sodium 135 mmol/L (136-145)
[2023-02-20 14:03] LABS: Alanine Aminotransferase 10 U/L (12-78); Aspartate Amino Transferase 34 U/L (14-36); Blood Urea Nitrogen 16 mg/dl (7-17); Creatinine Clearance Estimated 50 mL/min (50-200); Estimated Glomerular Filt Rate 40 ml/min (>60); GFR (African American) 48 ML/MIN (>60); Magnesium 1.8 mg/dl (1.6-2.3); Phosphorous 3.2 mg/dl (2.5-4.5)
--- NOTE | 2023-02-20 14:03 | PC.NURSE ---
Post morphine administration patient's O2 sat's dropped to 86%. Went into room and placed patient on 2L NC; patient now 100%. Call gonzalez within reach
[2023-02-20 14:04] LABS: Albumin/Globulin Ratio 1.2 (1.1-1.8); Alkaline Phosphatase 149 U/L (38-126); Anion Gap 11.6 mEq/L (5-15); Bilirubin,Total 0.4 mg/dl (0.2-1.3); Calcium 9.6 mg/dl (8.4-10.2); Carbon Dioxide 28 mmol/L (22.0-30.0); Creatine Kinase 72 U/L (30-135); Globulin 3.4 g/dL (1.3-3.2); Glucose 78 mg/dl (74-100); Total Protein,Serum 7.4 g/dl (6.3-8.2)
[2023-02-20 14:09] LABS: Bacteria,Urine Trace /lpf; RBC,Urine Occasional #/hpf (0-3); WBC,Urine Occasional #/hpf (0-3)
[2023-02-20 14:13] LABS: NT Pro Brain Natriuretic Pep. 596 pg/mL (0-450)
[2023-02-20 14:18] LABS: Basophils % 0.2 % (0.1-2.0); Eosinophils # 0.6 K/mm3 (0.0-0.4); Eosinophils % 11.3 % (0.1-12.0); Hematocrit 42.6 % (37.0-47.0); Hemoglobin 13.1 g/dL (12.2-16.2); Lymphocytes # 1.5 K/mm3 (0.7-4.5); Lymphocytes % 30.5 % (10-50); Mean Corpuscular HGB Conc 30.8 g/dL (31.8-35.4); Mean Corpuscular Hemoglobin 26.8 pg (27.0-31.2); Mean Corpuscular Volume 87.1 fl (81-99); Mean Platelet Volume 8.7 fl (7.4-10.4); Monocytes # 0.5 K/mm3 (0.1-1.0); Monocytes % 9.6 % (1.7-9.3); Neutrophils # 2.4 K/mm3 (1.8-7.8); Neutrophils % 48.3 % (37.0-80.0); Platelet Count 250 K/mm3 (142-424); Red Blood Count 4.89 M/mm3 (4.20-5.40); Red Cell Distribution Width 16.3 % (11.5-17.5)
[2023-02-20 14:30] VITALS: BP 147/67; PULSE 70; RESP 14; O2SAT 100
--- NOTE | 2023-02-20 14:39 | PC.NURSE ---
Rounded on patient; nothing needed at this time. 3 warm blankets given to patient at this time.
[2023-02-20 15:06] VITALS: BP 147/67; PULSE 70; RESP 14; TEMP 36.9; O2SAT 96
== END 2023-02-20 15:12 | disposition home or self-care (01) ==
PROVIDERS: Emergency Provider Student in an Organized Health Care Education/Training Program; PCP Internal Medicine Adolescent Medicine
DX: R42 Dizziness and giddiness (principal); M54.50 Low back pain, unspecified; M25.511 Pain in right shoulder; M25.512 Pain in left shoulder; M32.9 Systemic lupus erythematosus, unspecified; J44.9 Chronic obstructive pulmonary disease, unspecified; I12.9 Hypertensive chronic kidney disease with stage 1 through stage 4 chronic kidney disease, or unspecified chronic kidney disease; N18.9 Chronic kidney disease, unspecified
CPT/HCPCS: 71045; 80053; 81001; 82550; 83735; 83880; 84100; 85025; 93005; 96361; 96374; 96375; 99285; J2405

== ENCOUNTER → 2023-02-24 13:34 | Outpatient (CLI) | payer MEDICARE, MEDICAID, SELFPAY ==
--- NOTE | 2023-02-24 13:39 | CT_ITS ---
FINAL REPORT TECHNIQUE: Thin section axial images were obtained through the neck after contrast administration per CT angiogram protocol. Multiplanar reconstruction images were obtained from the axial data. Exam was performed using dose reduction technique. CLINICAL HISTORY: ATHEROSCOLIS COMPARISON: None FINDINGS: CTA NECK: Suboptimal enhancement of the arteries with enhancement primarily of the venous structures. Recommend repeating exam at no additional charge. Moderate thyromegaly incidentally noted. IMPRESSION: Suboptimal enhancement of the arteries. Recommend repeat exam for higher diagnostic accuracy. Reviewed, Interpreted and Dictated by Ibeth Schultz MD Transcribed by Estrella Novak Authenticated and [facility]
== END ==
PROVIDERS: PCP Internal Medicine Adolescent Medicine; Visit Provider Nurse Practitioner Family
DX: D64.9 Anemia, unspecified (principal); E66.3 Overweight; I11.9 Hypertensive heart disease without heart failure; I73.9 Peripheral vascular disease, unspecified; N28.9 Disorder of kidney and ureter, unspecified; I20.8 Other forms of angina pectoris; I65.23 Occlusion and stenosis of bilateral carotid arteries; Z68.29 Body mass index [BMI] 29.0-29.9, adult
CPT/HCPCS: 70498; Q9967

== ENCOUNTER 2023-03-09 11:58 | Emergency (ER) | payer MEDICARE, MEDICAID, SELFPAY ==
[2023-03-09] VITALS (9 sets, daily range): BP systolic 145–197; BP diastolic 64–94; PULSE 74–86; RESP 12–21; TEMP 36.4; O2SAT 96–99; BMI 31.2
--- NOTE | 2023-03-09 12:04 | ECG_ITS ---
APPROVED REPORT Exam: Resting ECG HR:83 bpm ECG Measurements Heart Rate 83 AXES ND 149 P 63 QRSd 88 QRS 75 QT 348 T 11 QTc 388 Conclusion SINUS RHYTHM SEPTAL MYOCARDIAL INFARCTION , OF INDETERMINATE AGE [40+ ms Q WAVE IN V1/V2] ABNORMAL ECG UNCONFIRMED REPORT Electronically signed by : Miller Hazel MD 03/09/2023 20:10:02
--- NOTE | 2023-03-09 12:18 | PC.NURSE ---
able to collect blood, unable to obtain IV access at this time.
--- NOTE | 2023-03-09 12:23 | XR_ITS ---
FINAL REPORT CLINICAL HISTORY: altered mental status COMPARISON: 02/20/2023 FINDINGS: The patient has undergone prior posterior thoracolumbar fusion as noted on prior films. A calcified granuloma is once again noted in the right mid lung field. The heart size is normal. The mediastinum is normal. There is no focal infiltrate or edema. There are no pleural effusions. There is no pneumothorax. There is no osseous abnormality. IMPRESSION: No acute cardiopulmonary process Reviewed, Interpreted and Dictated by Josiah Russell MD Transcribed by Greta Pulido Authenticated and [facility]
--- NOTE | 2023-03-09 12:24 | CT_ITS ---
FINAL REPORT TECHNIQUE: multiple axial CT images were performed from the foramen magnum to the vertex without enhancement. CLINICAL HISTORY: altered mental status, dizzy COMPARISON: 05/27/2021 FINDINGS: The ventricles are mildly enlarged. There is diffuse mild atrophy. There is periventricular white matter change likely related to small vessel disease. There is no evidence of hemorrhage. No masses are identified. No extra-axial fluid is seen. The sinuses are normal. IMPRESSION: Atrophy and chronic changes without acute process. Reviewed, Interpreted and Dictated by Josiah Russell MD Transcribed by Greta Pulido Authenticated and [facility]
--- NOTE | 2023-03-09 12:25 | HMH.EDGENADL ---
Discharge Plan Disposition Patient Disposition: Home, Self-Care Condition: Fair Prescriptions Prescriptions: New meclizine [Antivert] 25 mg tablet,chewable 25 mg PO TID PRN (Reason: dizziness) Qty: 14 0RF No Action ferrous gluconate 240 mg (27 mg iron) tablet 240 mg PO DAILY chlorthalidone 25 mg tablet 12.5 mg PO DAILY bumetanide 1 mg tablet 3 mg PO DAILY Qty: 90 3RF donepezil 10 mg tablet 10 mg PO HS 30 Days Qty: 30 0RF cyanocobalamin (vitamin B-12) 1,000 MCG tablet 1 tab PO DAILY 30 Days Qty: 30 0RF leflunomide 20 mg tablet 20 mg PO DAILY 30 Days Qty: 30 0RF potassium chloride 20 MEQ tablet 20 meq PO BID 30 Days Qty: 60 0RF simvastatin 20 mg tablet 20 mg PO HS 30 Days Qty: 30 0RF ascorbate calcium (vitamin C) 500 mg tablet 500 mg PO DAILY 30 Days Qty: 30 0RF dorzolamide-timolol 22.3-6.8 mg/mL drops 1 drp OPHTHALMIC BID 30 Days Qty: 1 0RF montelukast 10 MG tablet 10 mg PO DAILY 30 Days Qty: 30 0RF fluticasone propionate 50 mcg/actuation spray,suspension 2 spry INTRANASAL DAILY 30 Days Qty: 1 0RF cholecalciferol (vitamin D3) 1,000 unit capsule 1 cap PO BID 30 Days Qty: 60 0RF memantine 10 MG tablet 10 mg PO BID 30 Days Qty: 60 0RF cetirizine 10 mg capsule 10 mg PO DAILY 30 Days Qty: 30 0RF bupropion HCl 100 mg tablet 100 mg PO AM Label Comments: TAKE ONE TABLET BY MOUTH EVERY MORNING AND TAKE TWO TABLETS BY MOUTH EVERY DAY AT BEDTIME bupropion HCl 100 MG tablet 200 mg PO HS colchicine [Mitigare] 0.6 mg capsule 0.6 mg PO DAILY Label Comments: TAKE ONE CAPSULE BY MOUTH EVERY DAY primidone 250 mg tablet 250 mg PO HS methimazole 5 MG tablet 5 mg PO TID carbidopa-levodopa 25-100 mg tablet 1 tab PO TID Label Comments: TAKE ONE TABLET THREE TIMES DAILY MAY take with OR without food Rx Instructions: may take with or without food citalopram 10 mg tablet 10 mg PO DAILY Label Comments: TAKE ONE TABLET BY MOUTH EVERY DAY meclizine 25 mg tablet 25 mg PO TIDP PRN (Reason: Dizziness) Label Comments: TAKE ONE TABLET BY MOUTH THREE TIMES DAILY NEEDED gabapentin 300 mg capsule 300 mg PO Q4H Label Comments: TAKE ONE CAPSULE BY MOUTH FOUR TIMES DAILY MAY CAUSE DROWSINESS hydrocortisone 2.5 % cream 1 applic TOPICAL BID Label Comments: APPLY TOPICALLY TO THE AFFECTED AREA(S) TWICE DAILY omeprazole 20 mg capsule,delayed release(DR/EC) 20 mg PO BID lisinopril 10 mg tablet 10 mg PO BID Label Comments: TAKE ONE TABLET BY MOUTH TWICE DAILY carvedilol [Coreg] 12.5 mg tablet 12.5 mg PO BID Rx Instructions: must administer with a meal/food Referrals Follow up/Referrals: Miller Hazel MD [Primary Care Provider] - See instructions Clinical Impressions Clinical Impression: Vertigo, Hypertensive urgency Instructions Patient Instructions: Vertigo Discharge ED Provider: Danilo Flores General Adult HPI General Chief complaint: Dizziness Stated complaint: Syncope Time Seen by Provider: 03/09/23 12:02 Mode of Arrival: Wheelchair Source of Information: Patient and Relative Limitations: No Limitations Description of Symptoms (Recalled from ER Triage Doc. by RN): 77 yo F presents to ED with c/o dizziness. symptoms ongoing for 4+ weeks. symptoms have been worse since wednesday. pt states that she has been diagnosed with vertigo by pcp and was given meclizine which she has been taking, but it not helping. History of Present Illness HPI narrative: This 77-year-old black female with a history of vertigo heart failure COPD and chronic kidney disease who has been complaining about vertigo for the past 4 weeks. Patient said she is post to see a specialist next week. Patient denies chest pain pressure heaviness cough hemoptysis shortness of breath patient does have swelling of her legs but she
[2023-03-09 12:31] LABS: Basophils % 0.3 % (0.1-2.0); Eosinophils # 0.6 K/mm3 (0.0-0.4); Eosinophils % 11.1 % (0.1-12.0); Hematocrit 41.1 % (37.0-47.0); Hemoglobin 13.1 g/dL (12.2-16.2); Lymphocytes # 1.2 K/mm3 (0.7-4.5); Lymphocytes % 24.5 % (10-50); Mean Corpuscular HGB Conc 31.9 g/dL (31.8-35.4); Mean Corpuscular Hemoglobin 27.2 pg (27.0-31.2); Mean Corpuscular Volume 85.4 fl (81-99); Mean Platelet Volume 8.6 fl (7.4-10.4); Monocytes # 0.5 K/mm3 (0.1-1.0); Monocytes % 9.8 % (1.7-9.3); Neutrophils # 2.7 K/mm3 (1.8-7.8); Neutrophils % 54.3 % (37.0-80.0); Platelet Count 250 K/mm3 (142-424); Red Blood Count 4.82 M/mm3 (4.20-5.40)
[2023-03-09 12:33] LABS: Chloride 97 mmol/L (98-107); Potassium 3.9 mmoL/L (3.5-5.1); Sodium 134 mmol/L (136-145)
[2023-03-09 12:36] LABS: Alanine Aminotransferase 11 U/L (12-78); Albumin Level 4.3 g/dl (3.5-5.0); Albumin/Globulin Ratio 1.1 (1.1-1.8); Alkaline Phosphatase 172 U/L (38-126); Anion Gap 11.9 mEq/L (5-15); Aspartate Amino Transferase 47 U/L (14-36); Bilirubin,Total 0.6 mg/dl (0.2-1.3); Blood Urea Nitrogen 23 mg/dl (7-17); Carbon Dioxide 29 mmol/L (22.0-30.0); Creatinine Clearance Estimated 42 mL/min (50-200); Estimated Glomerular Filt Rate 34 ml/min (>60); GFR (African American) 41 ML/MIN (>60); Magnesium 1.8 mg/dl (1.6-2.3); Total Protein,Serum 8.3 g/dl (6.3-8.2)
[2023-03-09 12:37] LABS: Calcium 9.6 mg/dl (8.4-10.2); Glucose 66 mg/dl (74-100)
[2023-03-09 12:49] LABS: Troponin I 0.02 ng/ml (0.00-0.034)
--- NOTE | 2023-03-09 12:57 | PC.NURSE ---
Glucose 66, pt given oral OJ. aware
--- NOTE | 2023-03-09 13:01 | PC.NURSE ---
UA sent to lab
[2023-03-09 13:04] LABS: Appearance,Urine CLEAR (Clear); Bilirubin,Urine Negative (Negative); Blood, Urine Negative (Negative); Color,Urine YELLOW (Yellow); Glucose,Urine (UA) Negative (Negative); Ketones,Urine Negative (Negative); Leukocyte Esterase,Urine Negative (Negative); Microscopic, Urine URINE MICROSCOPIC (MICROSCOPIC); Nitrate,Urine Negative (Negative); Protein,Urine TRACE (Negative); Specific Gravity, Urine 1.015 (1.005-1.030); Urobilinogen,Urine 0.2 EU/dl (0.2)
[2023-03-09 13:07] LABS: Thyroid Stimulating Hormone 4.55 uIU/mL (0.465-4.68)
[2023-03-09 13:14] LABS: Bacteria,Urine Trace /lpf
--- NOTE | 2023-03-09 13:52 | PC.NURSE ---
called to get pt lunch tray
[2023-03-09 13:54] LABS: POC Glucose,Bedside 62 (70-110)
--- NOTE | 2023-03-09 15:00 | PC.NURSE ---
pt ate all of lunch tray
--- NOTE | 2023-03-09 15:20 | PC.NURSE ---
reports recheck of blood sugar is not necessary after lunch tray
== END 2023-03-09 15:37 | disposition home or self-care (01) ==
PROVIDERS: Emergency Provider Emergency Medicine; PCP Internal Medicine Adolescent Medicine
DX: R42 Dizziness and giddiness (principal); I16.0 Hypertensive urgency; I11.0 Hypertensive heart disease with heart failure; I50.31 Acute diastolic (congestive) heart failure; J44.9 Chronic obstructive pulmonary disease, unspecified; N18.9 Chronic kidney disease, unspecified; K21.9 Gastro-esophageal reflux disease without esophagitis; E78.5 Hyperlipidemia, unspecified; E03.9 Hypothyroidism, unspecified; I73.89 Other specified peripheral vascular diseases; M32.9 Systemic lupus erythematosus, unspecified; R94.31 Abnormal electrocardiogram [ECG] [EKG]
CPT/HCPCS: 70450; 71045; 80053; 81001; 82962; 83735; 84443; 84484; 85025; 93005; 99285

== ENCOUNTER → 2023-03-17 15:17 | Outpatient (CLI) | payer MEDICARE, MEDICAID, SELFPAY | PROVIDERS: PCP Internal Medicine Adolescent Medicine; Visit Provider Nurse Practitioner Family | DX: R55 Syncope and collapse (principal) | CPT/HCPCS: 93225; 93226 ==

== ENCOUNTER → 2023-04-01 14:41 | Outpatient (CLI) | payer MEDICARE, MEDICAID, SELFPAY ==
[2023-04-01 15:16] LABS: Microscopic, Urine URINE MICROSCOPIC (MICROSCOPIC)
[2023-04-01 15:57] LABS: Basophils % 0.3 % (0.1-2.0); Eosinophils # 0.6 K/mm3 (0.0-0.4); Eosinophils % 11.2 % (0.1-12.0); Hematocrit 37.5 % (37.0-47.0); Hemoglobin 11.6 g/dL (12.2-16.2); Lymphocytes # 1.3 K/mm3 (0.7-4.5); Lymphocytes % 25.2 % (10-50); Mean Corpuscular Hemoglobin 26.7 pg (27.0-31.2); Mean Corpuscular Volume 86.4 fl (81-99); Mean Platelet Volume 8.5 fl (7.4-10.4); Monocytes # 0.5 K/mm3 (0.1-1.0); Monocytes % 8.4 % (1.7-9.3); Neutrophils # 2.9 K/mm3 (1.8-7.8); Neutrophils % 54.9 % (37.0-80.0); Platelet Count 235 K/mm3 (142-424); Red Blood Count 4.34 M/mm3 (4.20-5.40); Red Cell Distribution Width 15.6 % (11.5-17.5); White Blood Count 5.3 K/mm3 (4.8-10.8)
[2023-04-01 16:30] LABS: Alanine Aminotransferase 15 U/L (12-78); Albumin Level 3.9 g/dl (3.5-5.0); Albumin/Globulin Ratio 1.4 (1.1-1.8); Alkaline Phosphatase 171 U/L (38-126); Anion Gap 10.5 mEq/L (5-15); Aspartate Amino Transferase 31 U/L (14-36); Bilirubin,Total 0.2 mg/dl (0.2-1.3); Blood Urea Nitrogen 25 mg/dl (7-17); Calcium 9.3 mg/dl (8.4-10.2); Carbon Dioxide 30 mmol/L (22.0-30.0); Chloride 98 mmol/L (98-107); Estimated Glomerular Filt Rate 34 ml/min (>60); GFR (African American) 41 ML/MIN (>60); Globulin 2.8 g/dL (1.3-3.2); Glucose 91 mg/dl (74-100); Potassium 4.5 mmoL/L (3.5-5.1); Sodium 134 mmol/L (136-145); Total Protein,Serum 6.7 g/dl (6.3-8.2); Uric Acid 6.6 mg/dl (2.5-6.2)
[2023-04-01 16:39] LABS: Appearance,Urine CLEAR (Clear); Bilirubin,Urine Negative (Negative); Blood, Urine Negative (Negative); Color,Urine YELLOW (Yellow); Glucose,Urine (UA) Negative (Negative); Ketones,Urine Negative (Negative); Leukocyte Esterase,Urine Negative (Negative); Nitrate,Urine Negative (Negative); Protein,Urine Negative (Negative); Urobilinogen,Urine 0.2 EU/dl (0.2)
[2023-04-01 16:57] LABS: Erythrocyte Sedimentation Rate 85 mm/hr (0-30)
[2023-04-01 17:04] LABS: Squamous Epithelial Cell,Urine Occasional #/hpf (0-5)
[2023-04-03 10:19] LABS: Complement C3 190 mg/dL (82-167)
[2023-04-06 13:33] LABS: dsDNA AB Crithidia Negative (Negative)
== END ==
PROVIDERS: PCP Internal Medicine Adolescent Medicine; Visit Provider Nurse Practitioner Women's Health
DX: I27.20 Pulmonary hypertension, unspecified (principal); M35.1 Other overlap syndromes
CPT/HCPCS: 36415; 80053; 81001; 84550; 85025; 85651; 86140; 86161; 86225

== ENCOUNTER → 2023-04-10 12:28 | Outpatient (CLI) | payer MEDICARE, MEDICAID, SELFPAY ==
--- NOTE | 2023-04-10 14:31 | XR_ITS ---
PROCEDURE INFORMATION: Exam: XR Left Hip Exam date and time: 04/10/2023 2:33 PM Age: 77 years old Clinical indication: Hip pain; Left hip; Additional info: Pain left hip TECHNIQUE: Imaging protocol: Radiologic exam of the left hip. Views: 2 or 3 views hip with pelvis when performed. COMPARISON: CT ABDOMEN PELVIS WO/W CON 08/21/2021 10:46 AM FINDINGS: Tubes, catheters and devices: Other orthopedic hardware is intact with no evidence of loosening. Bones/joints: Lucency around the right sacroiliac arthrodesis screw measures greater than 2 mm. The mild bone hypertrophy affects the acetabular rims and femoral heads. No fractures or dislocations. Soft tissues: No soft tissue masses or radiopaque foreign bodies. IMPRESSION: 1. Loosening around the right sacroiliac arthrodesis screw has occurred. 2. Other orthopedic hardware is intact with no evidence of loosening. 3. No fractures or focal bone lesions.
== END ==
PROVIDERS: PCP Internal Medicine Adolescent Medicine; Visit Provider Internal Medicine Adolescent Medicine
DX: M25.552 Pain in left hip (principal)
CPT/HCPCS: 73502

== ENCOUNTER 2023-04-10 20:35 | Observation (INO) | payer MEDICARE, MEDICAID, SELFPAY ==
[2023-04-10 20:35] VITALS: BP 166/99; PULSE 88; RESP 16; TEMP 36.6; O2SAT 99; BMI 32.5
--- NOTE | 2023-04-10 20:40 | CT_ITS ---
PROCEDURE INFORMATION: Exam: CT Pelvis Without Contrast; Skeletal Exam date and time: 04/10/2023 8:57 PM Age: 77 years old Clinical indication: Injury or trauma; Fall; Additional info: Fall on Wednesday and now pain TECHNIQUE: Imaging protocol: Computed tomography of the pelvis without contrast. Exam focused on the skeleton. Radiation optimization: All CT scans at this facility use at least one of these dose optimization techniques: automated exposure control; mA and/or kV adjustment per patient size (includes targeted exams where dose is matched to clinical indication); or iterative reconstruction. REPORTING DATA: Count of CT and Cardiac NM exams in prior 12 months: This patient has received 3 known CTs and 0 known cardiac nuclear medicine studies in the 12 months prior to the current study. COMPARISON: CT ABDOMEN PELVIS WO/W CON 08/21/2021 10:46 AM FINDINGS: Liver: The visualized liver is unremarkable. Kidneys and ureters: Visualized kidneys are unremarkable. Stomach and bowel: Visualized bowel is unremarkable. Urinary bladder: The bladder is normal without focal wall thickening. Reproductive: Reproductive organs are unremarkable as visualized. Vasculature: Calcific atherosclerosis. Bones/joints: Patient is status post lumbosacral interbody fusion as well as surgical fixation of the bilateral SI joints. Hardware appears intact in similar orientation as 08/21/2021. Mild perihardware lucency about the right sacroiliac screw is similar to comparison CT. No acute fracture. Osteoarthritic type changes of the bilateral femoroacetabular joints. Degenerative changes symphysis pubis. Soft tissues: Unremarkable. IMPRESSION: 1. No acute fracture. 2. Other findings as above.
--- NOTE | 2023-04-10 20:40 | XR_ITS ---
PROCEDURE INFORMATION: Exam: XR Left Knee Exam date and time: 04/10/2023 8:56 PM Age: 77 years old Clinical indication: Injury or trauma; Fall; Additional info: Fall on Wednesday and now pain TECHNIQUE: Imaging protocol: Radiologic exam of the left knee. Views: 3 views. COMPARISON: CR XR KNEE LT 4V 01/09/2022 10:21 AM FINDINGS: Bones/joints: No acute fracture. Tricompartment marginal osteophytes. Mild joint space narrowing. There is a suprapatellar effusion. Soft tissues: Normal. IMPRESSION: 1. No displaced fracture. 2. Suprapatellar effusion raises concern internal derangement. Recommend correlation with history/physical exam and consider further evaluation nonemergent MRI. 3. [id number] osteoarthritic type changes of left knee.
--- NOTE | 2023-04-10 20:40 | XR_ITS ---
PROCEDURE INFORMATION: Exam: XR Left Femur Exam date and time: 04/10/2023 8:56 PM Age: 77 years old Clinical indication: Injury or trauma; Fall; Additional info: Fall on Wednesday and now pain TECHNIQUE: Imaging protocol: Radiologic exam of the left femur. Views: 2 views. COMPARISON: 1. CA VENOUS DOPPLER LE BI 02/18/2023 1:[address] PELVIS WO CON 04/10/2023 8:57 PM FINDINGS: Bones/joints: No displaced fracture. Osteoarthritic type changes left femoroacetabular joint. Soft tissues: Unremarkable. IMPRESSION: No acute fracture.
[2023-04-10 21:13] VITALS: BP 242/106; PULSE 105; O2SAT 97
--- NOTE | 2023-04-10 21:17 | PC.NURSE ---
helped rad move pt to ct scanner table and back then stayed and helped hold pt leg up for xray's pt is now back in room, now at bs speaking with pt and son
--- NOTE | 2023-04-10 21:22 | HMH.EDGENADL ---
Discharge Plan Disposition Patient Disposition: Admitted as Observation Clinical Impressions Clinical Impression: Knee pain Discharge ED Provider: Dean Morales General Adult HPI General Chief complaint: PAIN Stated complaint: lt hip pain Time Seen by Provider: 04/10/23 20:53 Mode of Arrival: EMS Source of Information: Patient Limitations: No Limitations Description of Symptoms (Recalled from ER Triage Doc. by RN): pt states she fell on wednesday. today pt had an outpatient xrays today. pt c/o lt knee and hip pain. History of Present Illness HPI narrative: Patient is a 87-year-old female with past medical history of chronic joint pain who presents emergency department for evaluation of traumatic injury sustained in a fall. Patient rolled out of her bed while reaching for her walker falling on her left knee and hip on Wednesday. Patient has had progressive left knee and hip pain causing her to present here for continued evaluation. No other acute traumatic complaints at this time. Patient is on anticoagulation and denies hitting her head. At baseline patient can get around with a walker or a cane unassisted. Related Data Home Medications Medication Instructions Recorded Confirmed allopurinol 100 mg tablet 100 mg PO DAILY Gout 04/10/23 04/10/23 bumetanide 1 mg tablet 2 mg PO DAILY Fluid 04/10/23 04/10/23 bupropion HCl 100 mg tablet 100 mg PO AM Mood 04/10/23 04/10/23 bupropion HCl 100 mg tablet 200 mg PO HS Mood 04/10/23 04/10/23 carbidopa 25 mg-levodopa 100 mg 1 tab PO TID Memory 04/10/23 04/10/23 tablet carvedilol 6.25 mg tablet 6.25 mg PO BID Heart Rhythm 04/10/23 04/10/23 chlorthalidone 25 mg tablet 25 mg PO DAILY Fluid 04/10/23 04/10/23 cholecalciferol (vitamin D3) 25 25 mcg PO BID Supplement 04/10/23 04/10/23 mcg (1,000 unit) tablet clopidogrel 75 mg tablet 75 mg PO DAILY Antiplatelet 04/10/23 04/10/23 colchicine 0.6 mg capsule 0.6 mg PO DAILY Gout 04/10/23 04/10/23 (Mitigare) diclofenac sodium 1 % topical gel 1 g topical TIDP PRN Arthritis 04/10/23 04/10/23 donepezil 10 mg tablet 10 mg PO HS Memory 04/10/23 04/10/23 dorzolamide 22.3 mg-timolol 6.8 1 drp Eye-Both HS Eye pressure 04/10/23 04/10/23 mg/mL eye drops fluticasone propionate 50 1 - 2 spray intranasal DAILYP PRN 04/10/23 04/10/23 mcg/actuation nasal Allergy Symptoms spray,suspension gabapentin 300 mg capsule 300 mg PO Q4HWA Neuropathy 04/10/23 04/10/23 leflunomide 20 mg tablet 20 mg PO DAILY Rheumatoid Arthritis 04/10/23 04/10/23 meclizine 25 mg tablet 25 mg PO TIDP PRN Vertigo 04/10/23 04/10/23 memantine 10 mg tablet 10 mg PO BID Memory 04/10/23 04/10/23 methimazole 5 mg tablet 5 mg PO Q8H Hyperthyroid 04/10/23 04/10/23 montelukast 10 mg tablet 10 mg PO DAILY Allergy Symptoms 04/10/23 04/10/23 omeprazole 20 mg capsule,delayed 20 mg PO BID Acid Reflux 04/10/23 04/10/23 release potassium chloride 20 mEq 20 meq PO BID Supplement 04/10/23 04/10/23 tablet,extended release(part/cryst) prednisone 5 mg tablet 5 mg PO DAILY Chronic 04/10/23 04/10/23 primidone 250 mg tablet 250 mg PO HS Pain 04/10/23 04/10/23 simvastatin 20 mg tablet 20 mg PO HS High Cholesterol 04/10/23 04/10/23 Allergies Allergy/AdvReac Type Severity Reaction Status Date / Time prochlorperazine Allergy Intermediate HALLUCINATI Verified 03/17/23 14:35 [PROCHLORPERAZINE] ONS oxycodone [OXYCODONE] Allergy Unknown HALLUCINATI Verified 03/17/23 14:35 ONS ibuprofen [IBUPROFEN] AdvReac Unknown PT HAS Verified 03/17/23 14:35 RENAL FAILURE [facility] Disclaimer: The information contained in this section may have been updated after the patient was seen, as this information can be updated by other users. 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 Angina pectoris Bilateral carotid artery disease CAD in [place] artery Carotid bruit Cataract COPD (chronic obstructive pulmonary disease) Diastolic dysfunction Difficulty swallowing DVT (robert
[2023-04-10 21:26] VITALS: BP 190/110; BP 206/101; PULSE 102; O2SAT 93
[2023-04-10 21:30] VITALS: BP 196/88; PULSE 101; O2SAT 96
--- NOTE | 2023-04-10 21:53 | PC.NURSE ---
Dr. Morales at BS
--- NOTE | 2023-04-10 21:59 | PC.NURSE ---
Dr. Yasemin richter
--- NOTE | 2023-04-10 22:01 | PC.NURSE ---
Dr. Morales speaking with Dr. Hazel
--- NOTE | 2023-04-10 22:04 | PC.NURSE ---
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
[2023-04-10 22:14] VITALS: BP 187/75; PULSE 97; RESP 16; TEMP 36.6; O2SAT 99
--- NOTE | 2023-04-10 22:26 | PC.NURSE ---
Pt arrived to floor via stretcher @ [id number]
--- NOTE | 2023-04-10 23:57 | PC.NURSE ---
Patient requesting her home medications for [place]. I had spoke to Dr. Hazel earlier who stated reorder all her home meds. I spoke to Charge who advised me to place order for [facility] to order home medications. Patient calling back out now stating she still hasn't had her home meds. I reached out to [facility] and spoke to Anya who stated I cannot do that. The provider would need to place medication orders for me to verify. I repsoke to Charge nurse who advised me to then fax a pharmacy request to restart all home medications per Dr. Hazel for tonight.
[2023-04-11 04:00] VITALS: BP 155/70; PULSE 92; RESP 18; TEMP 36.5; O2SAT 97; BMI 31.8
--- NOTE | 2023-04-11 06:42 | PC.NURSE ---
Patient asking for her dose of Gabapentin for right now. I educated patient on importance of scheduled medications. She sates she understood and would wait for her 0900 dose.
[2023-04-11 07:48] VITALS: BP 143/65; PULSE 89; RESP 17; TEMP 36.7; O2SAT 99
--- NOTE | 2023-04-11 08:35 | EXP.HP ---
History of Present Illness *Admission Date: 04/10/23 *Reason for visit:: Fall at home with left knee pain and immobility and inability to walk *History of present illness: 77-year-old female with a long medical history including vascular disease, lupus, rheumatoid arthritis, chronic joint pains, chronic ataxia and frequent falls, who fell out of bed at home yesterday evening while she was rolling over to try to get her cane. She fell onto the floor, striking her left hip, left knee and then rolling onto her right shoulder. She did not strike her head as far she can recall and did not lose consciousness. She was able to get to a chair and call for assistance and was transported to the hospital. Evaluation with x-rays and CT of pelvis revealed no evidence of bony fracture. However x-rays revealed a significant effusion in the post patellar area and she was unable to bend her knee or bear weight. Given her pain issues, need for PT and Ortho evaluation she was admitted to hospital for further evaluation. Of note she reports that her waiter/waitress economy class removed significant amount of fluid from her knee about 2 weeks ago and thinks that it will return. [facility] Disclaimer: The information contained in this section may have been updated after the patient was seen, as this information can be updated by other users. 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 Angina pectoris Bilateral carotid artery disease CAD in [place] artery Carotid bruit Cataract COPD (chronic obstructive pulmonary disease) Diastolic dysfunction Difficulty swallowing DVT (deep venous thrombosis) Edema GERD (gastroesophageal reflux disease) Heart murmur HHD (hypertensive heart disease) History of COVID-19 HLD (hyperlipidemia) HTN (hypertension), benign Hypothyroid Lymphedema Palpitations Peripheral arterial disease PVD (peripheral vascular disease) Renal disease Right carotid bruit Syncope Systemic lupus Unstable angina Surgical History Cataract extraction status, right eye H/O rotator cuff surgery H/O tubal ligation History of back surgery History of colonoscopy Family History Other Alcoholism Anemia Cancer Coronary artery disease FHx: mental illness Heart attack Hyperlipidemia Hypertension Kidney disease Substance abuse Tuberculosis 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 (Updated 04/10/23 @ 23:25 by Dg Munoz RN) Smoking Status: Never smoker alcohol intake: never substance use type: denies use current occupational status: retired Travel in the last 8 weeks: Inside the [place] household members: children current occupational exposures/hazards: No Review of Systems Review of Systems Review of systems:: pertinent systems reviewed and negative unless documented below Meds Home Medications and Allergies Home Medications Medication Instructions Recorded Confirmed Type allopurinol 100 mg tablet 100 mg PO DAILY Gout 04/10/23 04/10/23 History bumetanide 1 mg tablet 2 mg PO DAILY Fluid 04/10/23 04/10/23 History bupropion HCl 100 mg tablet 100 mg PO AM Mood 04/10/23 04/10/23 History bupropion HCl 100 mg tablet 200 mg PO HS Mood 04/10/23 04/10/23 History carbidopa 25 mg-levodopa 100 mg 1 tab PO TID Memory 04/10/23 04/10/23 History tablet carvedilol 6.25 mg tablet 6.25 mg PO BID Heart Rhythm 04/10/23 04/10/23 History chlorthalidone 25 mg tablet 25 mg PO DAILY Fluid 04/10/23 04/10/23 History cholecalciferol (vitamin D3) 25 25 mcg PO BID Supplement 04/10/23 04/10/23 History mcg (1,000 unit) tablet clopidogrel 75 mg tablet 75 mg PO DAILY Antiplatelet 04/10/23 04/10/23 History colchicine 0.6 mg capsule 0.6 mg PO DAILY Gout 04/10/23 04/10/23 History (Mitigare) diclofenac sodium 1 % topical gel 1 g topical TIDP PRN Arthritis 04/10/23 04/10/23 History donepezil 10 mg tablet 10 mg PO HS Memory 04/10/23 07
--- NOTE | 2023-04-11 08:38 | PC.NURSE ---
Dr. Hazel ok with ortho being notified in am (04/12)
--- NOTE | 2023-04-11 12:34 | HMH.PTEV ---
Physical Therapy Evaluation Rehab PT IP Evaluation Start: 04/10/23 22:03 Freq: ONCE Status: Active Protocol: Document 04/11/23 12:28 PHORNE (Rec: 04/11/23 12:33 PHORNE [id number]) Subjective/History History History 77 yoaaf adm to [facility] after fall from her bed at home with increased L knee pain. All readiographs negative for acute fx. SHe has hx of Lupus, RA, CAD, PAD, CVI. She lives with family, no steps to enter the home and she generally uses a cane for ambulation at baseline. Subjective Subjective She reports 10/10 pain in the L knee this am, but she agrees to get OOB to chair. Rehab PT IP Eval Objective Appearance Patient Behavior Appropriate Patient Orientation Person,Place,Time Difficulty following instructions none Speech Pattern Clear Ambulation Patient Able to Ambulate Yes Ambulation Observation IP General Gait Pattern Observation Antalgic Gait,Wide Based Gait, Shuffling Step,Decrease Stride Lngth (R),Decrease Stride Lngth (L) Ambulation Distance (feet) 3 Ambulation Assistive Device Rolling Walker Ambulation Ability Minimal x 2 (25% assist) Balance Ability to Arise Able, uses arms to help Sitting Balance Leans or slides in chair Standing Balance Unsteady Dynamic Sitting Balance Ability Fair Dynamic Standing Balance Ability Poor Transfers Bed Transfer Ability Moderate x 2 (50% assist) Chair Transfer Ability Minimal x 2 (25% assist) Sit to Stand Bed Transfer Ability Minimal x 2 (25% assist) Sit to Stand Chair Transfer Ability Minimal x 2 (25% assist) MMT LLE PT MMT ABN Abnormal MMT Grade grossly 2/5 throughout Rehab PT IP prob,goals,plan Problems Date of Evaluation: 04/11/23 PT IP Problems Bed Mobility,Transfers,Gait Rehab Potential Rehab Potential Good Plan PT Intervention Plan Bed Mobility,Transfers,Gait, Therapeutic Exercise PT Plan Frequency Daily Duration LOS Discharge Goals Bed Transfer Ability Minimal x 1 (25% assist) Sit to Stand Chair Transfer Ability Minimal x 1 (25% assist) Ambulation Assistive Device Rolling Walker Ambulation Distance (feet) 15 Discharge Plan PT Discharge Plan Pt is currently most
[2023-04-11 15:03] VITALS: BP 141/70; PULSE 90; RESP 17; TEMP 36.7; O2SAT 99
--- NOTE | 2023-04-11 17:18 | PC.NURSE ---
pt has been up to chair for most of shift and tolerated well.
--- NOTE | 2023-04-11 18:30 | PC.NURSE ---
Patient arrived to unit at this time. Oriented to unit and call light. In bed at this time. No needs were voiced. Legs elevated and fresh ice provided to patient. Report to be given to assistant bookkeeper nurse.
--- NOTE | 2023-04-11 18:49 | PC.NURSE ---
report to so hunter RN
[2023-04-11 20:00] VITALS: BP 123/51; PULSE 92; RESP 20; TEMP 36.9; O2SAT 96
--- NOTE | 2023-04-11 21:58 | PC.NURSE ---
Patient upset at this time because gabapentin is only scheduled four times a day and patient states she takes that medication five times per day, Dr Hazel was called and new orders received for gabapentin 300mg po 5x/day, phone order repeated and verified
--- NOTE | 2023-04-12 04:53 | PC.NURSE ---
pt has rested well throughout shift, pt has moved bilateral lower extremities slightly in bed, edema continues to BLE, pt refused vital signs at this time, pt does c/o dizziness with sudden movements of headache pt states she has stenosis and that is normal treated with prn meclizine and effective, pain has been managed.
[2023-04-12 07:18] LABS: Basophils % 0.4 % (0.1-2.0); Eosinophils # 0.9 K/mm3 (0.0-0.4); Eosinophils % 18.2 % (0.1-12.0); Hematocrit 37.7 % (37.0-47.0); Hemoglobin 11.5 g/dL (12.2-16.2); Lymphocytes # 1.9 K/mm3 (0.7-4.5); Lymphocytes % 38.5 % (10-50); Mean Corpuscular HGB Conc 30.5 g/dL (31.8-35.4); Mean Corpuscular Volume 88.4 fl (81-99); Mean Platelet Volume 8.6 fl (7.4-10.4); Monocytes # 0.4 K/mm3 (0.1-1.0); Monocytes % 8.4 % (1.7-9.3); Neutrophils # 1.7 K/mm3 (1.8-7.8); Neutrophils % 34.5 % (37.0-80.0); Platelet Count 233 K/mm3 (142-424); Red Blood Count 4.27 M/mm3 (4.20-5.40); Red Cell Distribution Width 15.3 % (11.5-17.5); White Blood Count 4.9 K/mm3 (4.8-10.8)
[2023-04-12 07:28] LABS: Anion Gap 6.5 mEq/L (5-15); Blood Urea Nitrogen 24 mg/dl (7-17); Calcium 9.2 mg/dl (8.4-10.2); Carbon Dioxide 30 mmol/L (22.0-30.0); Chloride 102 mmol/L (98-107); Creatinine Clearance Estimated 46 mL/min (50-200); Estimated Glomerular Filt Rate 37 ml/min (>60); GFR (African American) 44 ML/MIN (>60); Glucose 83 mg/dl (74-100); Potassium 3.5 mmoL/L (3.5-5.1); Sodium 135 mmol/L (136-145)
[2023-04-12 08:00] VITALS: BP 139/58; PULSE 90; RESP 17; TEMP 36.8; O2SAT 96
--- NOTE | 2023-04-12 08:09 | EXP.ACUTE.PN ---
Subjective *Date: 04/12/23 *Time: 08:09 Interval history: Patient overall did well yesterday. She states that she can now move her leg and is convinced that she can walk on her own. PT evaluation this morning pending. Orthopedic consultation pending. Medical Exam Vital signs and Labs for Last 24 Hours: Vital Signs Temp Pulse Resp BP Pulse Ox O2 Del Method 04/12/23 01:00 Room Air 04/11/23 23:00 Room Air 04/11/23 21:00 Room Air 04/11/23 20:00 98.4 F 92 H 20 123/51 L 96 Room Air 04/11/23 18:48 Room Air 04/11/23 16:14 Room Air 04/11/23 15:00 Room Air 04/11/23 15:03 98.0 F 90 17 141/70 H 99 Room Air 04/11/23 13:00 Room Air 04/11/23 11:00 Room Air 04/11/23 09:00 Room Air Intake and Output 04/11/23 04/12/23 04/12/23 19:59 03:59 11:59 Intake Total 480 / 480 Output Total 500 / 775 275 / 775 Balance -20 / -295 -275 / -295 Intake: Intake, Oral Amount 480 / 480 Output: Output, Urine Amount 500 / 775 275 / 775 Other: Number of Unmeasured Voids 1 Laboratory Results - last 24 hr 04/12/23 07:08: WBC 4.9, RBC 4.27, Hgb 11.5 L, Hct 37.7, MCV 88.4, MCH 27.0, MCHC 30.5 L, RDW 15.3, Plt Count 233, MPV 8.6, Neut % (Auto) 34.5 L, Lymph % (Auto) 38.5, Bent % (Auto) 8.4, Eos % (Auto) 18.2 H, Baso % (Auto) 0.4, Neut # (Auto) 1.7 L, Lymph # (Auto) 1.9, Bent # (Auto) 0.4, Eos # (Auto) 0.9 H, Baso # (Auto) 0.0, Sodium 135 L, Potassium 3.5, Chloride 102, Carbon Dioxide 30, Anion Gap 6.5, BUN 24 H, Creatinine 1.40 H, Estimated Creat Clear 46, Estimated GFR 37 L, Est GFR ( Amer) 44 L, Glucose 83, Calcium 9.2 I & O for Labs for Last 24 Hours: Intake & Output 04/09/23 04/10/23 04/11/23 04/12/23 11:59 11:59 11:59 11:59 Intake Total 520 / 520 480 / 480 Output Total 3300 / 3300 775 / 775 Balance -2780 / -2780 -295 / -295 Weight 186 lb 6.4 oz Comment:: Patient is alert, pleasant. Oriented. Good air movement, pulse rate regular. Knee is still swollen. She is appears very immobile still and very stiff although she is vigorously eating her breakfast. Assessment and Plan *Assessment and plan (1) Knee pain: Status: Acute Category: Medical Code(s): M25.569 - Pain in unspecified knee (2) Chronic joint pain: Status: Acute Category: Medical Code(s): M25.50 - Pain in unspecified joint; G89.29 - Other chronic pain (3) Back pain, lumbosacral: Status: Acute Category: Medical Code(s): M54.50 - Low back pain, unspecified (4) Lower extremity pain: Status: Acute Category: Medical Code(s): M79.606 - Pain in leg, unspecified Plan Given her fall and immobility patient needs to be evaluated for home safety and ataxia before discharge. She actually wants to go home today and was quite upset that I was unwilling to discharge her. She understands the rationale but apparently wants to make sure she makes her 1030 appointment tomorrow on April 12 with vascular surgery to go over her CT scan results of her neck. I told her I would call Dr. Marvin's office tomorrow and get these results. She feels a bit better about this. I will ask PT to see her for home safety and evaluation of her gait and weightbearing status. I will also ask orthopedic service to see her tomorrow to see if any interventions would help in regards to the knee swelling. I have adjusted her home medications, specifically gabapentin to match her home dose which is very important to her. Once again I talked with patient about the possibility of her being in a skilled care environment for a while and she adamantly refuses. Plan update for 04/12/2023-patient's opinion about skilled care facility has somewhat changed, she is willing to consider this if PT still think she needs it but she would like to try to walk again today. This is certainly reasonable. Orthopedics is scheduled to see her today to se
--- NOTE | 2023-04-12 09:57 | HMH.OTEV ---
OT Inpatient Evaluation Rehab OT IP Evaluation Start: 04/12/23 08:11 Freq: ONCE Status: Active Protocol: Document 04/12/23 09:49 [facility] (Rec: 04/12/23 09:57 [facility] [id number]) Rehab OT IP Assessment Subjective History Pt orineted x 3 on arrival. Pt agreeable to engage in therapy evaluation. Pt reports her knee pain has improved significantly since yesterday. Pt was admitted on 04/10/23 after a fall at home with left knee pain, immobility, and inability to walk. Prior to being in the hospital, pt lived at home. Pt's son did live with her, but he is not at home all the time. Pt has aids that come to her house daily for 8 hours at a time. Pt claims normally she is independent with dressing and feeding. She does use AE to increase independence such as a extra gang supervisor and sock aid. Pt does require some assistance getting in and out of her bathtub to increase safety. Pt is usually dependent upon staff for completion of IADLs. Pt does use a rolling walker during ambulation. She has a ramp to enter her home. Pt has a past medical history of: Angina pectoris Bilateral carotid artery disease CAD in [place] artery Carotid bruit Cataract COPD (chronic obstructive pulmonary disease) Diastolic dysfunction Difficulty swallowing DVT (deep venous thrombosis) Edema GERD (gastroesophageal reflux disease) Heart murmur HHD (hypertensive heart disease) History of
--- NOTE | 2023-04-12 10:54 | EXP.ORTH.CON ---
History of Present Illness *Admission Date: 04/10/23 *History of present illness: 77-year-old female with a long medical history including vascular disease, lupus, rheumatoid arthritis, chronic joint pains, chronic ataxia and frequent falls, who fell out of bed at home yesterday evening while she was rolling over to try to get her cane. She fell onto the floor, striking her left hip, left knee and then rolling onto her right shoulder. She did not strike her head as far she can recall and did not lose consciousness. She was able to get to a chair and call for assistance and was transported to the hospital. Evaluation with x-rays and CT of pelvis revealed no evidence of bony fracture. However x-rays revealed a significant effusion in the post patellar area and she was unable to bend her knee or bear weight. Of note she reports that her airline transport pilot removed significant amount of fluid from her knee about 2 weeks ago and thinks that it will return. Ortho consulted for possible knee aspiration. [facility] Disclaimer: The information contained in this section may have been updated after the patient was seen, as this information can be updated by other users. 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 (Updated 04/12/23 @ 11:12 by Ramsey Cardoso DO) Angina pectoris Bilateral carotid artery disease CAD in [place] artery Carotid bruit Cataract COPD (chronic obstructive pulmonary disease) Diastolic dysfunction Difficulty swallowing DVT (deep venous thrombosis) Edema GERD (gastroesophageal reflux disease) Heart murmur HHD (hypertensive heart disease) History of COVID-19 HLD (hyperlipidemia) HTN (hypertension), benign Hypothyroid Lymphedema Palpitations Peripheral arterial disease PVD (peripheral vascular disease) Renal disease Right carotid bruit Syncope Systemic lupus Unstable angina Surgical History Cataract extraction status, right eye H/O rotator cuff surgery H/O tubal ligation History of back surgery History of colonoscopy Family History Other Alcoholism Anemia Cancer Coronary artery disease FHx: mental illness Heart attack Hyperlipidemia Hypertension Kidney disease Substance abuse Tuberculosis 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 (Updated 04/10/23 @ 23:25 by Dg Munoz RN) Smoking Status: Never smoker alcohol intake: never substance use type: denies use current occupational status: retired Travel in the last 8 weeks: [place] the [place] household members: children current occupational exposures/hazards: No Meds Home Medications and Allergies Home Medications Medication Instructions Recorded Confirmed Type allopurinol 100 mg tablet 100 mg PO DAILY Gout 04/10/23 04/10/23 History bumetanide 1 mg tablet 2 mg PO DAILY Fluid 04/10/23 04/10/23 History bupropion HCl 100 mg tablet 100 mg PO AM Mood 04/10/23 04/10/23 History bupropion HCl 100 mg tablet 200 mg PO HS Mood 04/10/23 04/10/23 History carbidopa 25 mg-levodopa 100 mg 1 tab PO TID Memory 04/10/23 04/10/23 History tablet carvedilol 6.25 mg tablet 6.25 mg PO BID Heart Rhythm 04/10/23 04/10/23 History chlorthalidone 25 mg tablet 25 mg PO DAILY Fluid 04/10/23 04/10/23 History cholecalciferol (vitamin D3) 25 25 mcg PO BID Supplement 04/10/23 04/10/23 History mcg (1,000 unit) tablet clopidogrel 75 mg tablet 75 mg PO DAILY Antiplatelet 04/10/23 04/10/23 History colchicine 0.6 mg capsule 0.6 mg PO DAILY Gout 04/10/23 04/10/23 History (Mitigare) donepezil 10 mg tablet 10 mg PO HS Memory 04/10/23 04/10/23 History dorzolamide 22.3 mg-timolol 6.8 1 drp Eye-Both HS Eye pressure 04/10/23 04/10/23 History mg/mL eye drops fluticasone propionate 50 1 - 2 spray intranasal DAILYP PRN 04/10/23 04/10/23 History mcg/actuation nasal Allergy Symptoms spray,suspension gabapentin 300 mg capsule 300 mg PO .6 TIMES DAILY Neuropathy 04/10/23 04/11/23 History leflun
--- NOTE | 2023-04-12 11:22 | EXP.DC.SUM ---
General Admission date:: 04/10/23 Discharge date: 04/12/23 HPI HPI HPI: 77-year-old female with a long medical history including vascular disease, lupus, rheumatoid arthritis, chronic joint pains, chronic ataxia and frequent falls, who fell out of bed at home yesterday evening while she was rolling over to try to get her cane. She fell onto the floor, striking her left hip, left knee and then rolling onto her right shoulder. She did not strike her head as far she can recall and did not lose consciousness. She was able to get to a chair and call for assistance and was transported to the hospital. Evaluation with x-rays and CT of pelvis revealed no evidence of bony fracture. However x-rays revealed a significant effusion in the post patellar area and she was unable to bend her knee or bear weight. Of note she reports that her ballistics tester removed significant amount of fluid from her knee about 2 weeks ago and thinks that it will return. Ortho consulted for possible knee aspiration. Hospital Course Hospital Course Hospital Course: Patient was admitted because of inability to walk. PT evaluated her the day of admission and noted that she could not bear weight at all and recommended skilled care versus 12/04 care at home. She was very upset about this. She agreed to stay 1 more day, orthopedics consulted today and toya some more fluid out of her knee and sent for studies. Recommended follow-up with Dr. Brewer as an outpatient. PT evaluated her again today and she made some improvement and was able to get up and move around under her own power and they recommended outpatient PT evaluation. This will be set up. She will be discharged home today. No medication changes. We will see her in our offices later this week. Exam Data for Last 24 hours Vital signs and Labs for Last 24 Hours: Temp Pulse Resp BP Pulse Ox O2 Del Method 98.4 F 92 H 20 123/51 L 96 Room Air 04/11/23 20:00 04/11/23 20:00 04/11/23 20:00 04/11/23 20:00 04/11/23 20:00 04/12/23 09:00 Laboratory Results - last 24 hr 04/12/23 07:08: WBC 4.9, RBC 4.27, Hgb 11.5 L, Hct 37.7, MCV 88.4, MCH 27.0, MCHC 30.5 L, RDW 15.3, Plt Count 233, MPV 8.6, Neut % (Auto) 34.5 L, Lymph % (Auto) 38.5, Clarke % (Auto) 8.4, Eos % (Auto) 18.2 H, Baso % (Auto) 0.4, Neut # (Auto) 1.7 L, Lymph # (Auto) 1.9, Clarke # (Auto) 0.4, Eos # (Auto) 0.9 H, Baso # (Auto) 0.0, Sodium 135 L, Potassium 3.5, Chloride 102, Carbon Dioxide 30, Anion Gap 6.5, BUN 24 H, Creatinine 1.40 H, Estimated Creat Clear 46, Estimated GFR 37 L, Est GFR ( Amer) 44 L, Glucose 83, Calcium 9.2 I & O for Last 24 hours: Intake & Output 04/09/23 04/10/23 04/11/23 04/12/23 11:59 11:59 11:59 11:59 Intake Total 520 / 520 480 / 480 Output Total 3300 / 3300 1575 / 1575 Balance -2780 / -2780 -1095 / -1095 Weight 186 lb 6.4 oz Narrative: EKG is sinus rhythm with old anteroseptal ID pattern and a rate of 62 bpm. Constitutional Constitutional: no acute distress and average body habitus *Routine HEENT Exam Head: Present normocephalic and atraumatic ENT: Present mucous membranes moist *Routine Neck Exam Neck: Present supple, full ROM and normal carotid upstroke; Absent JVD, carotid bruit or lymphadenopathy *Routine Respiratory Exam Respiratory: Present CTA bilaterally, normal respiratory effort, able to speak in complete sentences and symmetric chest movement *Routine Cardiovascular Exam Cardiovascular: Present RRR, Normal S1 and Normal S2; Absent murmur or gallop *Routine Abdominal Exam Abdominal: Present soft and normoactive bowel sounds; Absent tenderness, distended or organomegaly *Routine Extremities Exam Extremities: Present edema, pulses intact and normal capillary refill; Absent cyanosis or clubbing Comments: Edema in both legs as previously noted, joint exam per Ortho, swollen and stiff but improved over admission. Also see PT notes for details *Routine Skin Exam Skin: Present intact and warm;
--- NOTE | 2023-04-12 12:32 | PC.NURSE ---
Pt assisted with getting dressed to go home, x1 assistance back to the chair. Pt tolerated well. lunch tray setup. call gonzalez within reach, no new needs voiced
--- NOTE | 2023-04-13 14:17 | CARE MANAGER ---
Called and spoke with patient regarding recent discharge. Patient stated that she is doing well, no complaints or concerns at time of call.
== END 2023-04-12 13:09 | disposition home or self-care (01) ==
LOC: ER 20:49 → 2ND 22:08 → OB 04-11 18:13
PROVIDERS: Admitting Provider Internal Medicine Adolescent Medicine; Emergency Provider Emergency Medicine; PCP Internal Medicine Adolescent Medicine; Visit Provider Internal Medicine Adolescent Medicine
DX: M25.562 Pain in left knee (principal); G89.29 Other chronic pain; M54.50 Low back pain, unspecified; M79.605 Pain in left leg; M25.462 Effusion, left knee; Z79.899 Other long term (current) drug therapy; Z79.02 Long term (current) use of antithrombotics/antiplatelets; I25.118 Atherosclerotic heart disease of native coronary artery with other forms of angina pectoris; J44.9 Chronic obstructive pulmonary disease, unspecified; I10 Essential (primary) hypertension; E78.5 Hyperlipidemia, unspecified; Z86.16 Personal history of COVID-19; M06.862 Other specified rheumatoid arthritis, left knee; M06.861 Other specified rheumatoid arthritis, right knee; M32.9 Systemic lupus erythematosus, unspecified; R26.0 Ataxic gait; W06.XXXA Fall from bed, initial encounter; Y92.013 Bedroom of single-family (private) house as the place of occurrence of the external cause
CPT/HCPCS: 72192; 73502; 73552; 73562; 80048; 85025; 97116; 97163; 97166; 99285; G0378

== ENCOUNTER → 2023-05-28 16:56 | Outpatient (CLI) | payer MEDICARE, MEDICAID, SELFPAY ==
[2023-05-28 17:45] LABS: Creatinine,Urine Random 63 mg/dL (Not Estab.)
[2023-05-28 17:47] LABS: Basophils % 0.6 % (0.1-2.0); Eosinophils # 0.6 K/mm3 (0.0-0.4); Eosinophils % 10.4 % (0.1-12.0); Hemoglobin 12.4 g/dL (12.2-16.2); Lymphocytes # 1.6 K/mm3 (0.7-4.5); Lymphocytes % 28.2 % (10-50); Mean Corpuscular HGB Conc 30.3 g/dL (31.8-35.4); Mean Platelet Volume 8.6 fl (7.4-10.4); Monocytes # 0.6 K/mm3 (0.1-1.0); Monocytes % 9.9 % (1.7-9.3); Neutrophils # 2.8 K/mm3 (1.8-7.8); Neutrophils % 50.9 % (37.0-80.0); Platelet Count 288 K/mm3 (142-424); Red Blood Count 4.61 M/mm3 (4.20-5.40); Red Cell Distribution Width 14.8 % (11.5-17.5); White Blood Count 5.6 K/mm3 (4.8-10.8)
[2023-05-28 18:23] LABS: Chloride 99 mmol/L (98-107); Potassium 3.5 mmoL/L (3.5-5.1); Sodium 140 mmol/L (136-145)
[2023-05-28 18:26] LABS: Anion Gap 15.5 mEq/L (5-15); Blood Urea Nitrogen 30 mg/dl (7-17); Carbon Dioxide 29 mmol/L (22.0-30.0); Estimated Glomerular Filt Rate 31 ml/min (>60); GFR (African American) 38 ML/MIN (>60); Phosphorous 4.5 mg/dl (2.5-4.5)
[2023-05-28 18:27] LABS: Calcium 9.6 mg/dl (8.4-10.2); Glucose 89 mg/dl (74-100)
[2023-05-31 10:32] LABS: Microscopic, Urine URINE MICROSCOPIC (MICROSCOPIC)
[2023-05-31 10:50] LABS: Appearance,Urine SL CLOUDY (Clear); Bilirubin,Urine Negative (Negative); Blood, Urine Negative (Negative); Color,Urine YELLOW (Yellow); Glucose,Urine (UA) 3+ (Negative); Ketones,Urine Negative (Negative); Leukocyte Esterase,Urine Negative (Negative); Nitrate,Urine Negative (Negative); Protein,Urine Negative (Negative); Urobilinogen,Urine 0.2 EU/dl (0.2)
[2023-05-31 11:09] LABS: Bacteria,Urine 4+ /lpf; Squamous Epithelial Cell,Urine Occasional #/hpf (0-5)
== END ==
PROVIDERS: PCP Internal Medicine Adolescent Medicine; Visit Provider Internal Medicine Nephrology
DX: N18.32 Chronic kidney disease, stage 3b (principal); N39.0 Urinary tract infection, site not specified; B96.29 Other Escherichia coli [E. coli] as the cause of diseases classified elsewhere
CPT/HCPCS: 36415; 80069; 81001; 82043; 82570; 85025; 87086; 87186

== ENCOUNTER → 2023-05-31 10:24 | Outpatient (POV) | payer MEDICARE, MEDICAID, SELFPAY | PROVIDERS: Visit Provider Nurse Practitioner | DX: Z00.00 Encounter for general adult medical examination without abnormal findings (principal) ==

== ENCOUNTER → 2023-05-31 11:18 | Outpatient (CLI) | payer MEDICARE, MEDICAID, SELFPAY ==
--- NOTE | 2023-05-31 11:23 | MM_ITS ---
PROCEDURE INFORMATION: Exam: MG Bilateral Screening 3D Mammography Exam date and time: 05/31/2023 11:12 AM Age: 77 years old Clinical indication: Screening mammogram TECHNIQUE: Imaging protocol: Bilateral Screening tomosynthesis and 2D mammography including computer-aided detection (CAD) when performed. COMPARISON: 1. MG MM DIG MAMM DX UNILAT RT CAD 05/12/2022 1:36 PM 2. MG MM DIG SCREENING MAMM BI W/CAD 08/18/2021 11:01 AM 3. MG MM DIG MAMM BI DX W/CAD 01/03/2020 1:53 PM 4. MG MM DIG MAMM BI DX W/CAD 05/12/2019 1:53 PM FINDINGS: MAMMOGRAPHY: Breast composition: There are scattered areas of fibroglandular density. Mass: None. Architectural distortion: No new or suspicious architectural distortion. Calcifications: Stable benign-appearing calcifications are present. No new or suspicious cluster of microcalcifications have developed. Asymmetric density: No new or suspicious asymmetric density is present Skin thickening: None. Axillary adenopathy: None. IMPRESSION: No mammographic evidence of malignancy. Recommend annual screening mammography unless otherwise clinically indicated. ASSESSMENT: BI-RADS category 2: Benign
== END ==
PROVIDERS: PCP Internal Medicine Adolescent Medicine; Visit Provider Internal Medicine Adolescent Medicine
DX: Z12.31 Encounter for screening mammogram for malignant neoplasm of breast (principal)
CPT/HCPCS: 77063; 77067

== ENCOUNTER 2023-06-23 10:00 | Outpatient (RCR) | payer MEDICARE, MEDICAID, SELFPAY ==
--- NOTE | 2023-04-14 11:28 | HMH.PTOPWND ---
Rehab Outpt Wound Evaluation Rehab OP Wound Evaluation Start: 04/14/23 11:15 Freq: Status: Active Protocol: Document 04/14/23 11:15 [facility]OSTEVE (Rec: 04/14/23 11:28 PHORNE [id number]) E-signed By Jaime Hazel PT Subjective/History History History This is the initial PT eval for Yoko Jerez, 77 yoaaf who presents with increased B LE edema x ~ 1 wk. Pt suffered a fall out of her bed 5 days ago with soft tissue injuries to the L knee, but no fxs per radiographs taken. She was adm to the hospital here for ~ 3 days due to increased pain and stiffness. She has improved mobility steadily and was d/c back to home ~ 2 days ago. She continues to show increased L LE edema vs the R side and significant pain. Decreased AROM of the L knee as well. R Knee AROM= 0-95 deg, L Knee AROM= 0-60 deg. She has PMH of PAD, CVI, HTN, Lupus, and RA which further limits her LE function. Subjective Subjective Currently pain in the L knee 7 /10, at worst 10/10. 3/4 TTP throughout B lower legs this date. 2+ pitting edema throughout B lower legs and into L thigh this date. Moderate fibrotic edema noted in L thigh, Minimal fibrotic edema noted in R thigh. Lymphedema Eval Classification of Lymphedema Secondary Lymphedema Yes Stemmer's sign Stemmer's Sign yes Stage of Lymphedema Lymphedema stages Stage II (Pitting edema, increased fibrosis w/ decreased pitting) Skin Changes Dry Skin Yes Taut, Shiny Skin Yes Skin Folds Yes Discoloration of Skin Yes Other Changes Yes Pain Scale Pain Scale (0-10) 7 Affected Extremities Areas Affected by Lymphedema/Edema Right Lower Extremity,Left Lower Extremity Manual Lymphatic Drainage Treatment Area MLD Treatment Area Right Lower Extremity,Left L
--- NOTE | 2023-05-18 16:33 | HMH.RHREAS ---
Rehab Reassessment Rehab OP Re-assessment Start: 04/14/23 11:15 Freq: Status: Active Protocol: Document 05/18/23 16:28 MANA (Rec: 05/18/23 16:32 PHORKALINA [id number]) E-signed By Jaime Hazel, PT Rehab Re-assessment Subjective Subjective Pt reports she is much less tender and has reduced pain in B LE. Her L knee is moving much better and she has returned to walking with her cane. Objective Objective Notes Circumferential measurements: R LE total is 307.6 cm which is -8.0 cm since IE. L LE total is 313.5 cm which is -7.2 cm since IE. TTP: 09/23 B lower legs. Pain: 11/27 this date. Edema: 1+ pitting edema to B lower legs this date. Assessment Progress Assessment Progressing as Expected Assessment Notes Pt has shown significant reduction in B LE edema at this time which correlates to much improved mobility and home function. She continues to need skilled intervention to return to prior level of function. Patient goals met ST,2,3,4,5,6,7 LT,2,5 Goals Not Met LT,4,5,6,7,8,9 Plan Plan Continue per initial POC. Frequency of Therapy 2 x/wk Duration of therapy 4 wks Time and Billing Re-Eval Time 14 Re-Eval Billing Units 1 PHYSICIAN CERTIFICATION: I certify the specified therapy services for Yoko Jerez are required, authorized, and reviewed every 30 days.
--- NOTE | 2023-06-15 10:24 | HMH.RHREAS ---
Rehab Reassessment Rehab OP Re-assessment Start: 04/14/23 11:15 Freq: Status: Active Protocol: Document 06/15/23 10:18 MANA (Rec: 06/15/23 10:24 PHORKALINA [id number]) E-signed By Jaime Hazel, PT Rehab Re-assessment Subjective Subjective Pt reports, I fell last week, but luckily I didn't hurt myself too bad. I just scraped my knee a little bit. My knees both still hurt though. Objective Objective Notes Circumferential measurements: R LE total is 313.5 cm which is -2.1 cm since IE. L LE total is 310.4 cm which is -10.3 cm since IE. TTP: 09/23 B lower legs. Pain: 11/27 this date. Edema: 2+ pitting edema to B lower legs this date. Assessment Progress Assessment Slower Than Expected Assessment Notes Pt has shown increas in overal ledema of the LE this date due to inability to receive treatment over the past week and her recent fall. She continues to show fluctuating pitting edema and difficulty ambulating at home. She continues to need skilled intervention to return to prior level of function. Patient goals met ST,2,3,4,5,6,7 LT,2,5 Goals Not Met LT,4,5,6,7,8,9 Plan Plan Continue per initial POC. Frequency of Therapy 2 x/wk Duration of therapy 4 wks Time and Billing Re-Eval Time 13 Re-Eval Billing Units 1 PHYSICIAN CERTIFICATION: I certify the specified therapy services for Yoko Jerez are required, authorized, and reviewed every 30 days.
== END 2023-06-23 10:05 | disposition home or self-care (01) ==
LOC: PT 10:00
PROVIDERS: PCP Internal Medicine Adolescent Medicine; Visit Provider Nurse Practitioner Family
DX: I89.0 Lymphedema, not elsewhere classified (principal)
CPT/HCPCS: 97140; 97163; 97164

== ENCOUNTER 2023-06-27 21:28 | Observation (INO) | payer MEDICARE, MEDICAID, SELFPAY ==
[2023-06-27 21:28] VITALS: BP 176/77; PULSE 106; RESP 20; TEMP 37; O2SAT 98; BMI 32.5
[2023-06-27 21:34] VITALS: BP 176/77; PULSE 106; O2SAT 98
--- OUTSIDE RECORDS SUMMARY | 2023-06-27 21:38 | XMS_ITS | Clinical Summary ---
Author Name Unknown Address [address] [facility] [address] [place] [address] Phone Organization [facility] Address [address] [facility] [address] [place] [address] Phone Care Team Providers Care Bottling Line Attendant Name Role Phone Zackery DELGADO, Bobo Tejeda [ ] Conditions or Problems Problem Name Problem Code Onset Date Status Entry Date Provider Comment Standard Description Annotate Kidney disease, chronic, stage II 698011265 (SNOMED CT) 03/06 Active 03/06 Bobo Vizcarra MD Chronic kidney disease stage 2 UTI, recurrent 296271313 (SNOMED CT) 03/06 Active 03/06 Bobo Vizcarra MD Recurrent urinary tract infection DIARRHEA, CHRONIC 046227955 (SNOMED CT) 06/17 Active 06/17 Bobo Vizcarra MD Chronic diarrhea SYSTEMIC LUPUS ERYTHEMATOSU S 49213817 (SNOMED CT) 06/17 Active 06/17 Bobo Vizcarra MD Systemic lupus erythematosus IMMUNOCOMPRO MISED 594330431 (SNOMED CT)
--- OUTSIDE RECORDS SUMMARY | 2023-06-27 21:39 | XMS_ITS | Continuity of Care Document ---
Author Name Unknown Organization [facility] Address [address] [facility] [address] [place] [address] Phone Care Team Providers Care Stitcher Standard Machine Name Role Phone Jaimee Rowe OD Unavailable Unavailab le Advance Directives Directive Yes / No Effective Date File Name No Information Encounters Encounter Description Practice Location Reason(s) For Visit Diagnoses Date Provider Providers Copied on Encounter [address] [place] [address], [address] [facility] [address], [place], [place], [id number], [place] tel:[phone] [place] No Information 2 Jae Hermosillo. [address] [facility], [facility] [address], [place], [address], [place]. Family History Family Member Type Diagnosis Age At Onset No Information Payers Payer name Insurance type Covered alliance party ID Authoriza tion(s) No Information 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 Type Description Quantity Date Captured Comments Sex Female Smoking Status No Information Chief Complaint And Reason For Visit No Information Reason For Referral Reason For Referral No Information History Of Present Illness Encounter Date Complaint History Of Prese nt Illness No Information Functional S
--- OUTSIDE RECORDS SUMMARY | 2023-06-27 21:39 | XMS_ITS | Continuity of Care Document ---
Author Name Unknown Organization [facility] Address [address] [place] [phone] Phone Care Team Providers Care Paper Products Supervisor Name Role Phone Twila Betancourt MD Unavailable Unavailable Allergies, Adverse Reactions, Alerts Substance Reaction Status Criticality metolazone Edema Active No Information PROCHLORPERAZINE MALEATE Unknown Active No Information PROCHLORPERAZINE EDISYLATE Unknown Active N o Information prochlorperazine Unknown Active No Informat ion tetracycline Unknown Active No Information OXYCODONE HCL Unknown Active No Information acetaminophen Unknown Active No Information Penicillins Active No Information Medications Medication Instructions Dosage Effective Dates (start - stop) Status Comments allopurinol 100 mg tablet TAKE ONE TABLET BY MOUTH EVERY DAY - Active Mitigare 0.6 mg capsule take 1 capsule by oral route every day 0.6 MG - Active prednisone 5 mg tablet take 2 tablet PO daily - Active prednisone 5 mg tablet take 4 tabs by mouth x5 days, then 3 tabs x5 days, then 2 tabs daily until follow up
--- NOTE | 2023-06-27 21:58 | PC.NURSE ---
Patient reports chronic pain that is much worse today, in addition to her back she reports increased pain to bilateral knees and right shoulder. Provider updated.
[2023-06-27 22:00] VITALS: BP 177/75; PULSE 105; O2SAT 93
--- NOTE | 2023-06-27 22:16 | CT_ITS ---
PROCEDURE INFORMATION: Exam: CT Pelvis Without Contrast; Skeletal Exam date and time: 06/27/2023 11:09 PM Age: 77 years old Clinical indication: Pelvic pain; Additional info: Left hip pain, unable to bear weight TECHNIQUE: Imaging protocol: Computed tomography of the pelvis without contrast. Exam focused on the skeleton. Radiation optimization: All CT scans at this facility use at least one of these dose optimization techniques: automated exposure control; mA and/or kV adjustment per patient size (includes targeted exams where dose is matched to clinical indication); or iterative reconstruction. REPORTING DATA: Count of CT and Cardiac NM exams in prior 12 months: This patient has received 4 known [address]s and 0 known cardiac nuclear medicine studies in the 12 months prior to the current study. COMPARISON: CT PELVIS WO CON 04/10/2023 8:57 PM FINDINGS: Urinary bladder: There is moderate distention of the urinary bladder. Vasculature: Multiple pelvic phleboliths are present. Scattered atherosclerotic disease of the arterial vasculature. Bones/joints: Lumbosacral surgical hardware is present. Associated streak artifact mildly limits the study. There is diffuse osseous demineralization. There are degenerative changes of the hips, pubic symphysis, and lumbar spine. Status post multilevel laminectomy. Soft tissues: There is a small fat containing umbilical hernia. IMPRESSION: No evidence for acute osseous injury. Scattered degenerative disease. If there is concern for an occult injury, MRI can be considered.
[2023-06-27 22:29] LABS: Basophils # 0.1 K/mm3 (0-0.2); Eosinophils # 1.1 K/mm3 (0.0-0.4); Eosinophils % 14.1 % (0.1-12.0); Hematocrit 45.1 % (37.0-47.0); Hemoglobin 13.7 g/dL (12.2-16.2); Lymphocytes # 1.6 K/mm3 (0.7-4.5); Lymphocytes % 21.1 % (10-50); Mean Corpuscular HGB Conc 30.3 g/dL (31.8-35.4); Mean Corpuscular Hemoglobin 27.5 pg (27.0-31.2); Mean Corpuscular Volume 90.6 fl (81-99); Mean Platelet Volume 8.8 fl (7.4-10.4); Monocytes # 0.9 K/mm3 (0.1-1.0); Neutrophils # 3.9 K/mm3 (1.8-7.8); Neutrophils % 51.8 % (37.0-80.0); Platelet Count 217 K/mm3 (142-424); Red Blood Count 4.97 M/mm3 (4.20-5.40); Red Cell Distribution Width 14.6 % (11.5-17.5); White Blood Count 7.6 K/mm3 (4.8-10.8)
--- NOTE | 2023-06-27 22:46 | HMH.EDGENADL ---
Discharge Plan Disposition Patient Disposition: Admitted Clinical Impressions Clinical Impression: Hip pain, left, Knee pain, Ambulatory dysfunction Lupus (systemic lupus erythematosus) Qualifiers: Systemic lupus erythematosus type: unspecified Systemic lupus erythematosus organ involvement: unspecified Qualified Code(s): M32.9 - Systemic lupus erythematosus, unspecified Discharge ED Provider: Robert Fine General Adult HPI <Robert Fine MD - Last Filed: 06/27/23 22:50> General Chief complaint: Back Pain/Injury Stated complaint: Back pain Time Seen by Provider: 06/27/23 22:08 Mode of Arrival: EMS Source of Information: Patient and EMS Limitations: Physical Limitations Description of Symptoms (Recalled from ER Triage Doc. by RN): Patient arrived via EMS after utilizing [employer] pendant to call for emergency services. Patient states that she has had severe 10/10 lower right sided back pain, sharp in nature, worse with movement. Patient reports a fall 3 weeks ago, trip/slip from one step, but denies worsening pain after the fall. Patient reports that this back pain started Wednesday and has progressively gotten worse to today. Denies dysuria, reports significantly increased difficulty with ambulation at home, she normally ambulates with cane and walker, has been unable to ambulate today. History of Present Illness HPI narrative: Patient is a 77-year-old female brought in today for severe left hip pain. States she has had chronic intermittent arthritis pain for a long time but is not been told that she has significant arthritis in her left hip in the past. States that on Wednesday evening she believes that she started to develop some pain in the left hip and when she woke up on Wednesday she was having significant pain in the left hip. No fevers chills swelling erythema etc. She states that she has progressively worsened over the last week she has been able to walk with a walker however has been unable to ambulate as of today. She states the pain is severe with any type of movement no definitive trauma she is aware of. Related Data Home Medications Medication Instructions Recorded Confirmed allopurinol 100 mg tablet 100 mg PO DAILY Gout 04/10/23 06/28/23 bumetanide 1 mg tablet 1 mg PO DAILY Fluid 04/10/23 06/28/23 bupropion HCl 100 mg tablet 100 mg PO AM Mood 04/10/23 06/28/23 bupropion HCl 100 mg tablet 200 mg PO HS Mood 04/10/23 06/28/23 carbidopa 25 mg-levodopa 100 mg 1 tab PO TID Memory 04/10/23 06/28/23 tablet carvedilol 6.25 mg tablet 6.25 mg PO BID Heart Rhythm 04/10/23 06/28/23 chlorthalidone 25 mg tablet 25 mg PO DAILY Fluid 04/10/23 06/28/23 cholecalciferol (vitamin D3) 25 25 mcg PO BID Supplement 04/10/23 06/28/23 mcg (1,000 unit) tablet clopidogrel 75 mg tablet 75 mg PO DAILY Antiplatelet 04/10/23 06/28/23 colchicine (gout) 0.6 mg capsule 0.6 mg PO DAILY Gout 04/10/23 06/28/23 (Mitigare) donepezil 10 mg tablet 10 mg PO HS Memory 04/10/23 06/28/23 dorzolamide 22.3 mg-timolol 6.8 1 drp Eye-Both HS Eye pressure 04/10/23 06/28/23 mg/mL eye drops fluticasone propionate 50 1 - 2 spray intranasal DAILYP PRN 04/10/23 06/28/23 mcg/actuation nasal Allergy Symptoms spray,suspension gabapentin 300 mg capsule 300 mg PO .6 TIMES DAILY Neuropathy 04/10/23 06/28/23 leflunomide 20 mg tablet 20 mg PO DAILY Rheumatoid Arthritis 04/10/23 06/28/23 meclizine 25 mg tablet 25 mg PO TIDP PRN Vertigo 04/10/23 06/28/23 memantine 10 mg tablet 10 mg PO BID Memory 04/10/23 06/28/23 methimazole 5 mg tablet 5 mg PO Q8H Hyperthyroid 04/10/23 06/28/23 montelukast 10 mg tablet 10 mg PO DAILY Allergy Symptoms 04/10/23 06/28/23 omeprazole 20 mg capsule,delayed 20 mg PO BID Acid Reflux 04/10/23 06/28/23 release potassium chloride 20 mEq 20 meq PO BID Supplement 04/10/23 06/28/23 tablet,extended release(part/cryst) prednisone 5 mg tablet 10 mg PO DAILY Chronic INFLAMMATION 04/10/23 06/28/23 primidone 250 mg tablet 250 mg PO HS Pain 04/10/23 10/
[2023-06-27 22:53] LABS: Chloride 102 mmol/L (98-107); Potassium 3.9 mmoL/L (3.5-5.1); Sodium 135 mmol/L (136-145)
[2023-06-27 22:56] LABS: Alanine Aminotransferase 12 U/L (12-78); Albumin Level 4.1 g/dl (3.5-5.0); Alkaline Phosphatase 159 U/L (38-126); Anion Gap 13.9 mEq/L (5-15); Aspartate Amino Transferase 58 U/L (14-36); Bilirubin,Total 0.5 mg/dl (0.2-1.3); Blood Urea Nitrogen 20 mg/dl (7-17); Carbon Dioxide 23 mmol/L (22.0-30.0); Creatinine Clearance Estimated 47 mL/min (50-200); Estimated Glomerular Filt Rate 37 ml/min (>60); GFR (African American) 44 ML/MIN (>60); Globulin 4.1 g/dL (1.3-3.2); Total Protein,Serum 8.2 g/dl (6.3-8.2)
[2023-06-27 22:57] LABS: Calcium 9.2 mg/dl (8.4-10.2); Glucose 98 mg/dl (74-100)
[2023-06-27 23:28] LABS: Erythrocyte Sedimentation Rate 107 mm/hr (0-30)
[2023-06-27 23:31] VITALS: BP 125/56; PULSE 92; O2SAT 97
--- NOTE | 2023-06-27 23:40 | PC.NURSE ---
Patient resting quietly with eyes closed, respirations even and unlabored. No acute distress noted at this time. No needs expressed at this time by patient or family. Call light within reach, purewick in place per patient request, bed low locked position.
[2023-06-28] VITALS: BP 128/56; PULSE 93; O2SAT 96
--- NOTE | 2023-06-28 00:24 | PC.NURSE ---
Dr. Segundo richter
[2023-06-28 00:27] VITALS: BP 163/67
--- NOTE | 2023-06-28 00:28 | PC.NURSE ---
ED doctor on phone with Dr. Raymond re admission
[2023-06-28 00:56] VITALS: BP 163/67; PULSE 91; RESP 19; TEMP 36.9; O2SAT 97
--- NOTE | 2023-06-28 01:09 | PC.NURSE ---
Patient arrived to floor via stretcher at 01:07.
[2023-06-28 01:27] VITALS: BP 160/76; PULSE 96; RESP 18; TEMP 36.8; O2SAT 98; BMI 35.6
--- NOTE | 2023-06-28 02:31 | PC.NURSE ---
Locked pt change purse in machine overhauler pt room
[2023-06-28 04:00] VITALS: BP 135/57; PULSE 89; RESP 20; TEMP 37; O2SAT 91; BMI 36.1
--- NOTE | 2023-06-28 04:29 | PC.NURSE ---
Pt arrived to the unit at 0107 Pt is alert and oriented x4 and currently on RA, Pt complains of severe lower back, and left leg pain. Pt has recieved pain medications and muscle relaxers for comfort and has rested in between. Pt denies pain, and denies needs at this time.
[2023-06-28 08:00] VITALS: BP 140/71; PULSE 100; RESP 16; TEMP 36.8; O2SAT 97
--- NOTE | 2023-06-28 08:17 | EXP.HP ---
History of Present Illness *Admission Date: 06/28/23 *Reason for visit:: Left leg pain/immobility *History of present illness: 77-year-old female with long history of lupus, chronic arthritis and significant immobility issues and frequent falls who last week had a denominational service climbed up into the choir loft to perform with her denominational choir and had to go up a couple of steps that are at a higher step elevation than typical and when she came down had a lot of pain down her left leg and this has persisted over the past 4 to 5 days. She came to the ER because of inability to stand on the leg and significant stumbling with near falling. She denies falling. In the ER she was found to have no evidence of fracture or dislocation on CT of the pelvis but was significantly in pain. Given a dose of morphine and steroids, admitted to hospital for further evaluation. [facility] Disclaimer: The information contained in this section may have been updated after the patient was seen, as this information can be updated by other users. 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 Angina pectoris Bilateral carotid artery disease CAD in [place] artery Carotid bruit Cataract COPD (chronic obstructive pulmonary disease) Diastolic dysfunction Difficulty swallowing DVT (deep venous thrombosis) Edema GERD (gastroesophageal reflux disease) Heart murmur HHD (hypertensive heart disease) History of COVID-19 HLD (hyperlipidemia) HTN (hypertension), benign Hypothyroid Lymphedema Palpitations Peripheral arterial disease PVD (peripheral vascular disease) Renal disease Right carotid bruit Syncope Systemic lupus Unstable angina Surgical History Cataract extraction status, right eye H/O rotator cuff surgery H/O tubal ligation History of back surgery History of colonoscopy Family History Other Alcoholism Anemia Cancer Coronary artery disease FHx: mental illness Heart attack Hyperlipidemia Hypertension Kidney disease Substance abuse Tuberculosis 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 (Updated 06/28/23 @ 01:34 by Elizabet Rincon RN) Smoking Status: Former smoker tobacco type: cigarettes alcohol intake: former substance use type: denies use current occupational status: retired and disabled Travel in the last 8 weeks: None household members: children current occupational exposures/hazards: No Review of Systems Review of Systems Review of systems:: pertinent systems reviewed and negative unless documented below Meds Home Medications and Allergies Home Medications Medication Instructions Recorded Confirmed Type allopurinol 100 mg tablet 100 mg PO DAILY Gout 04/10/23 06/28/23 History bumetanide 1 mg tablet 1 mg PO DAILY Fluid 04/10/23 06/28/23 History bupropion HCl 100 mg tablet 100 mg PO AM Mood 04/10/23 06/28/23 History bupropion HCl 100 mg tablet 200 mg PO HS Mood 04/10/23 06/28/23 History carbidopa 25 mg-levodopa 100 mg 1 tab PO TID Memory 04/10/23 06/28/23 History tablet carvedilol 6.25 mg tablet 6.25 mg PO BID Heart Rhythm 04/10/23 06/28/23 History chlorthalidone 25 mg tablet 25 mg PO DAILY Fluid 04/10/23 06/28/23 History cholecalciferol (vitamin D3) 25 25 mcg PO BID Supplement 04/10/23 06/28/23 History mcg (1,000 unit) tablet clopidogrel 75 mg tablet 75 mg PO DAILY Antiplatelet 04/10/23 06/28/23 History colchicine (gout) 0.6 mg capsule 0.6 mg PO DAILY Gout 04/10/23 06/28/23 History (Mitigare) donepezil 10 mg tablet 10 mg PO HS Memory 04/10/23 06/28/23 History dorzolamide 22.3 mg-timolol 6.8 1 drp Eye-Both HS Eye pressure 04/10/23 06/28/23 History mg/mL eye drops fluticasone propionate 50 1 - 2 spray intranasal DAILYP PRN 04/10/23 06/28/23 History mcg/actuation nasal Allergy Symptoms spray,suspension gabapentin 300 mg capsule 300 mg PO .6 TIMES DAILY Neuropathy 04/10/23 06/28/23 History lefl
--- NOTE | 2023-06-28 08:39 | HMH.PHAINT1 ---
Pharmacy Intervention Comments: MEDICATION RECONCILIATION COMPLETED ON PATIENT USING EXTERNAL FILL HISTORY FROM PHARMACY AND LIST FROM CARDIOLOGY OFFICE. -MALINA BASS, CATHYD
--- NOTE | 2023-06-28 09:50 | HMH.OTEV ---
OT Inpatient Evaluation Rehab OT IP Evaluation Start: 06/28/23 08:12 Freq: ONCE Status: Active Protocol: Document 06/28/23 09:45 SADIQ (Rec: 06/28/23 09:50 [id number] Rehab OT IP Assessment Subjective History Pt oriented x 4 on arrival. Pt agreeable to engage in therapy evaluation. Pt admitted on 06/28/23 due to lupus flare up and back pain. 77-year-old female with long history of lupus, chronic arthritis and significant immobility issues and frequent falls who last week had a shinto service climbed up into the choir loft to perform with her shinto choir and had to go up a couple of steps that are at a higher step elevation than typical and when she came down had a lot of pain down her left leg and this has persisted over the past 4 to 5 days. She came to the ER because of inability to stand on the leg and significant stumbling with near falling. Prior to being in the hospital , pt lived at home. Pt's grandson does live with patient. Pt does have an Aide that comes wednesday-wednesday to assist with ADLs and IADLs. Pt's family assists on the weekends. Pt normally uses a walker or a cane during ambulation. Subjective I am still in a lot of pain. Objective Patient Orientation Person,Place,Birthday,Month Upper Extremity Gross ROM WFL Bed Mobility bed mobility-scooting,bed mobility - supine/sit,bed mobility - rolling Assist Level Maximum x 2 (75% assist) Transfer Training Sit/Stand/Step Transfer Assist Level Minimal x 1 (25% assist) Chair Transfer Ability Minimal x 1 (25% assist) Chair Transfer Technique Stand Step Pivot Chair Transfer Assistive Devices Rolling Walker Rehab OT IP prob,goals,plan Problems Date of Evaluation:
--- NOTE | 2023-06-28 10:24 | HMH.PTEV ---
Physical Therapy Evaluation Rehab PT IP Evaluation Start: 06/28/23 08:12 Freq: ONCE Status: Active Protocol: Document 06/28/23 10:18 PHOSTEVE (Rec: 06/28/23 10:24 PHORNE [id number]) Subjective/History History History 77 yoaaf adm to [facility] with L LE pain with lupus flare-up. PMH of CAD, COPD, HTN, HLD, Lupus, PAD, CVI. She reports she lives alone, but has assistance throughout the day, every day. SHe reports she ambulates with cane at baseline and has assist with any ADLs. Subjective Subjective Pt c/o pain in the post L hip and SI area this am. Agrees to get OOB to chair. New diagnosis of cancer in past 12 No months? Rehab PT IP Eval Objective Appearance Patient Behavior Appropriate Patient Orientation Person,Place,Time Difficulty following instructions none Speech Pattern Clear Ambulation Patient Able to Ambulate Yes Ambulation Observation IP General Gait Pattern Observation Antalgic Gait,Shuffling Step Ambulation Distance (feet) 5 Ambulation Assistive Device Rolling Walker Ambulation Ability Minimal x 1 (25% assist) Balance Ability to Arise Unable Sitting Balance Steady, safe Standing Balance Steady, wide stance Dynamic Sitting Balance Ability Fair Dynamic Standing Balance Ability Fair Transfers Bed Transfer Ability Maximum x 2 (75% assist) Chair Transfer Ability Minimal x 2 (25% assist) Sit to Stand Bed Transfer Ability Minimal x 2 (25% assist) Sit to Stand Chair Transfer Ability Minimal x 2 (25% assist) Rehab PT IP prob,goals,plan Problems Date of Evaluation: 06/28/23 PT IP Problems Bed Mobility,Transfers,Gait Rehab Potential Rehab Potential Good Plan PT Intervention Plan Bed Mobility,Transfers,Gait, Therapeutic Exercise PT Plan Frequency Daily Duration LOS Discharge Goals Bed Transfer Ability Moderate x 1 (50% assist) Sit to Stand Chair Transfer Ability Minimal x 1 (25% assist) Ambulation Assistive Device Rolling Walker Ambulation Distance (feet) 20 Discharge Plan PT Discharge Plan Pt is currently most appropriate for rehab placement once medically stable for d/c. Without skilled intervention, s
--- NOTE | 2023-06-28 10:35 | SW/DCPLANNER ---
Addendum entered by Bibi Rao 06/28/23 14:28: Patient was able to ambulate 100ft this afternoon w/ therapy. I revisited w/ patient this afternoon and she plans to return home and resume services w/ home health ([facility]). Patient information will be faxed to [facility] at time of discharge. Per MD patient will discharge home today. Original Note: I spoke w/ patient this AM regarding plans once medically stable for discharge. Patient stated that she has aides at home and grandson is there in the evenings. PT/OT was ordered and recommended SNF level of care at time of discharge. I spoke w/ patient regarding placement and she is NOT interested in any local SNF facility. Patient is only interested in [facility] at this time. Patient information has been faxed to [facility]/ [facility]. Patient stated that she may be interested in [facility] only if [facility] is not able to accept patient. I have updated Dr Hazel regarding situation.
--- NOTE | 2023-06-28 14:42 | EXP.DC.SUM ---
General Admission date:: 06/28/23 Discharge date: 06/28/23 HPI HPI HPI: 77-year-old female with long history of lupus, chronic arthritis and significant immobility issues and frequent falls who last week had a taoism service climbed up into the choir loft to perform with her taoism choir and had to go up a couple of steps that are at a higher step elevation than typical and when she came down had a lot of pain down her left leg and this has persisted over the past 4 to 5 days. She came to the ER because of inability to stand on the leg and significant stumbling with near falling. She denies falling. In the ER she was found to have no evidence of fracture or dislocation on CT of the pelvis but was significantly in pain. Given a dose of morphine and steroids, admitted to hospital for further evaluation. Hospital Course Hospital Course Hospital Course: Patient was admitted overnight, given IV steroids and pain medicine. This improved her situation. She improved after my exam this morning and was evaluated by PT and OT. Patient originally wished to be referred to [facility] for rehab but given the fact she was able to walk 100 yards with minimal assistance she was declined by [facility]. She then wished to be evaluated for home discharge with home health. Given her good performance with PT and her improvement I think this is reasonable. I will send her home with some pain medication and some steroids and we will follow her up in 1 week in my office. Exam Data for Last 24 hours Vital signs and Labs for Last 24 Hours: Temp Pulse Resp BP Pulse Ox O2 Del Method 98.3 F 100 H 16 140/71 97 Room Air 06/28/23 08:00 06/28/23 08:00 06/28/23 08:00 06/28/23 08:00 06/28/23 08:00 06/28/23 08:00 Laboratory Results - last 24 hr 06/27/23 21:45: WBC 7.6, RBC 4.97, Hgb 13.7, Hct 45.1, MCV 90.6, MCH 27.5, MCHC 30.3 L, RDW 14.6, Plt Count 217, MPV 8.8, Neut % (Auto) 51.8, Lymph % (Auto) 21.1, [place] % (Auto) 12.0 H, Eos % (Auto) 14.1 H, Baso % (Auto) 1.0, Neut # (Auto) 3.9, Lymph # (Auto) 1.6, [place] # (Auto) 0.9, Eos # (Auto) 1.1 H, Baso # (Auto) 0.1, ESR 107 H, Sodium 135 L, Potassium 3.9, Chloride 102, Carbon Dioxide 23, Anion Gap 13.9, BUN 20 H, Creatinine 1.40 H, Estimated Creat Clear 47, Estimated GFR 37 L, Est GFR ( Amer) 44 L, Glucose 98, Calcium 9.2, Total Bilirubin 0.5, AST 58 H, ALT 12, Alkaline Phosphatase 159 H, Total Protein 8.2, Albumin 4.1, Globulin 4.1 H, Albumin/Globulin Ratio 1.0 L I & O for Last 24 hours: Intake & Output 06/26/23 06/27/23 06/28/23 06/29/23 11:59 11:59 11:59 11:59 Intake Total 540 / 540 470 / 470 Output Total 550 / 550 700 / 700 Balance - / 10 -230 / -230 Weight 211 lb 9 oz Narrative: EKG is sinus rhythm with old anteroseptal CT pattern and a rate of 62 bpm. Constitutional Constitutional: no acute distress and average body habitus *Routine HEENT Exam Head: Present normocephalic and atraumatic ENT: Present mucous membranes moist *Routine Neck Exam Neck: Present supple, full ROM and normal carotid upstroke; Absent JVD, carotid bruit or lymphadenopathy *Routine Respiratory Exam Respiratory: Present CTA bilaterally, normal respiratory effort, able to speak in complete sentences and symmetric chest movement *Routine Cardiovascular Exam Cardiovascular: Present RRR, Normal S1 and Normal S2; Absent murmur or gallop *Routine Abdominal Exam Abdominal: Present soft and normoactive bowel sounds; Absent tenderness, distended or organomegaly *Routine Extremities Exam Extremities: Present edema, pulses intact and normal capillary refill; Absent cyanosis or clubbing Comments: See H&P exam *Routine Skin Exam Skin: Present intact and warm; Absent erythema *Routine Neurological Exam Neurological: Present alert, oriented X3 and CN II-XII intact; Absent sensory deficit or motor deficit Routine Psychiatric Exam Psychiatric: Present normal affect Results Data Completed and Pending Labs on
[2023-06-29 12:53] LABS: C-Reactive Protein 242.4 mg/L (0-4)
--- NOTE | 2023-06-29 14:13 | SW/DCPLANNER ---
Follow up phone call was made w/ this patient regarding hospital discharge. Patient stated that she is currently at her [facility] at time of my phone call. Patient stated that she has no further questions/needs at this time.
--- NOTE | 2023-07-08 10:59 | SW/DCPLANNER ---
Addendum entered by Bibi Rao 07/08/23 15:05: [facility] offered patient a [facility]: patient refused placement under [facility] at this time. I called and spoke w/ patient regarding home health services and she stated that CM from [facility] had just contacted her to inform her they would set up home health services. Patient did not have any further needs/questions at this time. Original Note: Patient and her son contacted me regarding placement for this patient. Patient discharged from [facility] on 06/28/[address] [facility] on 06/29/23. Son stated that patient discharged back home from [facility] on 07/06/23 and is now in need of placement. Son stated that patient was interested at [facility]: I explained to son that patient was not a candidate for [facility] on 06/28/23 and they do not have female beds available at this time per Juli. Son then requested that I call patient and update her on situation and discuss other facilities. I spoke w/ patient and she is agreeable to placement at [facility] or [facility]. Due to [facility] not ordering home health and patient not having a recent PT/OT evaluation these facilities are not able to start a precert. [facility] has expressed that she would be interested in patient admitting as Medicaid. I will call and update patient and son regarding situation. I will also continue to update Dr Hazel.
== END 2023-06-28 15:43 | disposition home health service (06) ==
LOC: ER 22:49 → 2ND 06-28 00:46
PROVIDERS: Admitting Provider Family Medicine; Emergency Provider Student in an Organized Health Care Education/Training Program; PCP Internal Medicine Adolescent Medicine; Visit Provider Internal Medicine Adolescent Medicine
DX: M32.9 Systemic lupus erythematosus, unspecified (principal); M25.552 Pain in left hip; R26.2 Difficulty in walking, not elsewhere classified; R29.6 Repeated falls; Z79.899 Other long term (current) drug therapy; Z86.16 Personal history of COVID-19; I10 Essential (primary) hypertension; E78.5 Hyperlipidemia, unspecified; I65.23 Occlusion and stenosis of bilateral carotid arteries; Z79.01 Long term (current) use of anticoagulants; J44.9 Chronic obstructive pulmonary disease, unspecified; I25.10 Atherosclerotic heart disease of native coronary artery without angina pectoris; Z87.891 Personal history of nicotine dependence; M19.90 Unspecified osteoarthritis, unspecified site
CPT/HCPCS: 72192; 80053; 85025; 85651; 86140; 97116; 97163; 97166; 97530; 99285; G0378; J2405

== ENCOUNTER 2023-08-04 20:44 | Emergency (ER) | payer MEDICARE, MEDICAID, SELFPAY ==
[2023-08-04 20:45] VITALS: BP 171/94; PULSE 89; RESP 18; TEMP 36.7; O2SAT 96; BMI 32.9
--- NOTE | 2023-08-04 20:52 | HMH.EDGENADL ---
Discharge Plan Disposition Patient Disposition: Home, Self-Care Prescriptions Prescriptions: New ondansetron HCl 4 mg tablet 4 mg PO Q8H PRN (Reason: nausea and vomiting) 5 Days Qty: 30 0RF No Action carvedilol 6.25 mg tablet 6.25 mg PO BID Patient Comments: TAKE ONE TABLET BY MOUTH TWICE DAILY donepezil 10 mg tablet 10 mg PO HS Patient Comments: TAKE ONE TABLET BY MOUTH EVERY DAY AT BEDTIME prednisone 5 mg tablet 10 mg PO DAILY Patient Comments: TAKE ONE TABLET BY MOUTH EVERY DAY clopidogrel 75 mg tablet 75 mg PO DAILY Patient Comments: TAKE ONE TABLET BY MOUTH EVERY DAY chlorthalidone 25 mg tablet 25 mg PO DAILY Patient Comments: TAKE ONE TABLET BY MOUTH EVERY DAY allopurinol 100 mg tablet 100 mg PO DAILY Patient Comments: TAKE ONE TABLET BY MOUTH EVERY DAY leflunomide 20 mg tablet 20 mg PO DAILY Patient Comments: TAKE ONE TABLET BY MOUTH EVERY DAY bupropion HCl 100 mg tablet 100 mg PO DAILY Patient Comments: TAKE ONE TABLET BY MOUTH EVERY MORNING AND TAKE TWO TABLETS BY MOUTH EVERY DAY AT BEDTIME potassium chloride 20 mEq tablet,ER particles/crystals 20 meq PO BID Patient Comments: TAKE ONE TABLET BY MOUTH TWICE DAILY primidone 250 mg tablet 250 mg PO HS Patient Comments: TAKE ONE TABLET BY MOUTH EVERY NIGHT DIRECTED meclizine 25 mg tablet 25 mg PO TIDP PRN (Reason: Vertigo) Patient Comments: TAKE ONE TABLET BY MOUTH THREE TIMES DAILY NEEDED methimazole 5 mg tablet 5 mg PO Q8H Patient Comments: TAKE ONE TABLET BY MOUTH EVERY 8 HOURS gabapentin 300 mg capsule 300 mg PO DIRECTED Patient Comments: TAKE ONE CAPSULE BY MOUTH SIX TIMES DAILY MAY CAUSE DROWSINESS Rx Instructions: TAKE ONE CAPSULE 6 TIMES DAILY omeprazole 20 mg capsule,delayed release(DR/EC) 20 mg PO BID Patient Comments: TAKE ONE CAPSULE BY MOUTH TWICE DAILY bumetanide 1 mg tablet 1 mg PO DAILY Patient Comments: TAKE TWO TABLETS BY MOUTH EVERY DAY FOR fluid dorzolamide-timolol 22.3-6.8 mg/mL drops 1 drp Eye-Both BID montelukast 10 mg tablet 10 mg PO PM Patient Comments: TAKE ONE TABLET BY MOUTH EVERY DAY carbidopa-levodopa 25-100 mg tablet 1 tab PO TID Patient Comments: TAKE ONE TABLET BY MOUTH THREE TIMES DAILY may take with OR without food fluticasone propionate 50 mcg/actuation spray,suspension 1 spray INTRANASAL DAILYP PRN (Reason: Allergy Symptoms) Patient Comments: instill 1-2 [place](s) IN EACH NOSTRIL EVERY DAY DIRECTED memantine 10 mg tablet 10 mg PO BID Patient Comments: TAKE ONE TABLET BY MOUTH TWICE DAILY cholecalciferol (vitamin D3) 25 mcg (1,000 unit) tablet 25 mcg PO BID Patient Comments: TAKE ONE TABLET BY MOUTH TWICE DAILY bupropion HCl 100 mg tablet 200 mg PO HS Patient Comments: TAKE ONE TABLET BY MOUTH EVERY MORNING AND TAKE TWO TABLETS BY MOUTH EVERY DAY AT BEDTIME cetirizine 10 mg Tablet 10 mg PO DAILY aspirin 81 mg Tablet,Delayed Release (Dr/Ec) 81 mg PO DAILY ascorbic acid (vitamin C) [Vitamin C] 500 mg Capsule, Extended Release 500 mg PO DAILY rosuvastatin 20 mg Tablet 20 mg PO HS Jardiance 25 mg Tablet 25 mg PO DAILY colchicine [Mitigare] 0.6 mg Capsule 0.6 mg PO DAILY albuterol sulfate 90 mcg/actuation HFA aerosol inhaler 2 puff INHALATION Q4HP PRN (Reason: Shortness Of Breath) Patient Comments: INHALE TWO PUFFS BY MOUTH EVERY 4 HOURS NEEDED FOR wheezing prednisone 20 mg tablet 20 mg PO DAILY 7 Days Qty: 7 0RF hydrocodone-acetaminophen 5-325 mg tablet 1 tab PO BID PRN (Reason: pain) 5 Days Qty: 10 0RF Referrals Follow up/Referrals: Miller Hazel MD [Primary Care Provider] - See instructions Activity Restrictions/Add. Instructions Additional In
[2023-08-04 21:00] VITALS: BP 166/84; PULSE 85; O2SAT 96
--- NOTE | 2023-08-04 21:06 | CT_ITS ---
PROCEDURE INFORMATION: Exam: CT Abdomen And Pelvis With Contrast Exam date and time: 08/04/2023 10:15 PM Age: 77 years old Clinical indication: Abdominal pain; Epigastric; Additional info: Epigastric pain, HX pancreatitis TECHNIQUE: Imaging protocol: Computed tomography of the abdomen and pelvis with contrast. Radiation optimization: All CT scans at this facility use at least one of these dose optimization techniques: automated exposure control; mA and/or kV adjustment per patient size (includes targeted exams where dose is matched to clinical indication); or iterative reconstruction. Contrast material: ISOVUE; Contrast volume: 75 ml; Contrast route: IV; REPORTING DATA: Count of CT and Cardiac NM exams in prior 12 months: This patient has received 5 known CTs and 0 known cardiac nuclear medicine studies in the 12 months prior to the current study. COMPARISON: CT BONY PELVIS 06/27/2023 11:[address] abdomen and pelvis 08/21/2021 and 09/09/2019 FINDINGS: Lungs: Lung bases are clear. Liver: Normal. No mass. Gallbladder and bile ducts: Normal. No calcified stones. No ductal dilation. Pancreas: Normal. No ductal dilation. Spleen: Normal. No splenomegaly. Adrenal glands: Normal. No mass. Kidneys and ureters: Stable 2 cm hyperdense lesion superior left kidney which is somewhat obscured by metallic hardware artifact and likely a hyperdense cyst. Kidneys and ureters otherwise unremarkable with no obstructing stones or uropathy. Stomach and bowel: Unremarkable. No obstruction. No mucosal thickening. Appendix: Appendix is normal. No evidence of appendicitis. Intraperitoneal space: Unremarkable. No free air. No significant fluid collection. Vasculature: Atherosclerotic changes of the aorta and iliacs noted. No evidence of aneurysm. Lymph nodes: Unremarkable. No enlarged lymph nodes. Urinary bladder: Unremarkable as visualized. Reproductive: Unremarkable as visualized. Bones/joints: Extensive postop changes of the thoracolumbar spine and pelvis redemonstrated. Soft tissues: Unremarkable. IMPRESSION: No acute abnormalities of the abdomen and pelvis. Nonemergent findings as above.
--- NOTE | 2023-08-04 21:29 | ECG_ITS ---
APPROVED REPORT Exam: Resting ECG HR:86 bpm ECG Measurements Heart Rate 86 AXES GA 158 P 68 QRSd 90 QRS 47 QT 358 T 100 QTc 401 Conclusion SINUS RHYTHM SEPTAL MYOCARDIAL INFARCTION , OF INDETERMINATE AGE [40+ ms Q WAVE IN V1/V2] ABNORMAL ECG UNCONFIRMED REPORT Electronically signed by : Miller Hazel MD 08/05/2023 20:59:20
[2023-08-04 21:33] VITALS: BP 167/77; PULSE 82; O2SAT 97
[2023-08-04 21:51] LABS: Chloride 96 mmol/L (98-107)
[2023-08-04 21:52] LABS: Potassium 3.2 mmoL/L (3.5-5.1); Sodium 134 mmol/L (136-145)
[2023-08-04 21:54] LABS: Alanine Aminotransferase 20 U/L (12-78); Alkaline Phosphatase 166 U/L (38-126); Anion Gap 12.2 mEq/L (5-15); Aspartate Amino Transferase 42 U/L (14-36); Bilirubin,Total 0.2 mg/dl (0.2-1.3); Blood Urea Nitrogen 41 mg/dl (7-17); Carbon Dioxide 29 mmol/L (22.0-30.0); Creatinine Clearance Estimated 37 mL/min (50-200); Estimated Glomerular Filt Rate 29 ml/min (>60); GFR (African American) 35 ML/MIN (>60)
[2023-08-04 21:55] LABS: Albumin Level 4.2 g/dl (3.5-5.0); Albumin/Globulin Ratio 1.2 (1.1-1.8); Calcium 8.9 mg/dl (8.4-10.2); Globulin 3.4 g/dL (1.3-3.2); Glucose 134 mg/dl (74-100); Lipase 194 U/L (23-300); Total Protein,Serum 7.6 g/dl (6.3-8.2)
[2023-08-04 21:58] LABS: Basophils % 0.4 % (0.1-2.0); Eosinophils # 0.2 K/mm3 (0.0-0.4); Hematocrit 37.8 % (37.0-47.0); Hemoglobin 12.3 g/dL (12.2-16.2); Lymphocytes # 1.2 K/mm3 (0.7-4.5); Lymphocytes % 23.8 % (10-50); Mean Corpuscular HGB Conc 32.7 g/dL (31.8-35.4); Mean Corpuscular Hemoglobin 28.1 pg (27.0-31.2); Mean Corpuscular Volume 85.9 fl (81-99); Mean Platelet Volume 8.3 fl (7.4-10.4); Monocytes # 0.3 K/mm3 (0.1-1.0); Monocytes % 6.1 % (1.7-9.3); Neutrophils # 3.5 K/mm3 (1.8-7.8); Neutrophils % 66.7 % (37.0-80.0); Platelet Count 271 K/mm3 (142-424); Red Blood Count 4.39 M/mm3 (4.20-5.40); Red Cell Distribution Width 15.4 % (11.5-17.5); White Blood Count 5.2 K/mm3 (4.8-10.8)
[2023-08-04 22:00] VITALS: BP 145/61; PULSE 78; O2SAT 97
[2023-08-04 22:09] LABS: Troponin I 0.01 ng/ml (0.00-0.034)
--- NOTE | 2023-08-04 22:12 | PC.NURSE ---
Pt going to CT
--- NOTE | 2023-08-04 22:23 | HMH.ITSTN ---
GFR completion/results were overrode for the use of contrast media by the Physician on a risk vs. benefit situation with this patient
[2023-08-04 22:30] VITALS: BP 155/69; PULSE 83; O2SAT 93
[2023-08-04 22:32] LABS: Lactic Acid 1.1 mmol/L (0.7-2.1)
[2023-08-04 23:17] LABS: Microscopic, Urine URINE MICROSCOPIC (MICROSCOPIC)
[2023-08-04 23:19] LABS: Appearance,Urine CLEAR (Clear); Bilirubin,Urine Negative (Negative); Blood, Urine Negative (Negative); Color,Urine YELLOW (Yellow); Glucose,Urine (UA) 3+ (Negative); Ketones,Urine Negative (Negative); Leukocyte Esterase,Urine Negative (Negative); Nitrate,Urine Negative (Negative); PH,Urine 6.5 (5.0-8.5); Protein,Urine Negative (Negative); Urobilinogen,Urine 0.2 EU/dl (0.2)
[2023-08-04 23:31] LABS: Squamous Epithelial Cell,Urine Occasional #/hpf (0-5); WBC,Urine Occasional #/hpf (0-3)
[2023-08-05 00:07] VITALS: BP 146/61; PULSE 84; RESP 18; TEMP 36.6; O2SAT 97
== END 2023-08-05 00:08 | disposition home or self-care (01) ==
PROVIDERS: Emergency Provider Emergency Medicine; PCP Internal Medicine Adolescent Medicine
DX: R10.13 Epigastric pain (principal); E87.6 Hypokalemia; R79.89 Other specified abnormal findings of blood chemistry; R11.0 Nausea; I25.119 Atherosclerotic heart disease of native coronary artery with unspecified angina pectoris; I65.23 Occlusion and stenosis of bilateral carotid arteries; J44.9 Chronic obstructive pulmonary disease, unspecified; I11.9 Hypertensive heart disease without heart failure; E78.5 Hyperlipidemia, unspecified; K21.9 Gastro-esophageal reflux disease without esophagitis; E03.9 Hypothyroidism, unspecified; I73.9 Peripheral vascular disease, unspecified; M32.9 Systemic lupus erythematosus, unspecified
CPT/HCPCS: 74177; 80053; 81001; 83605; 83690; 84484; 85025; 93005; 96374; 96375; 99285; J2405; Q9967

== ENCOUNTER → 2023-09-03 16:40 | Outpatient (CLI) | payer MEDICARE, MEDICAID, SELFPAY | PROVIDERS: PCP Nurse Practitioner Family; Visit Provider Nurse Practitioner Family | DX: R30.0 Dysuria (principal); B96.29 Other Escherichia coli [E. coli] as the cause of diseases classified elsewhere | CPT/HCPCS: 87086 ==

== ENCOUNTER 2023-09-25 13:02 | Emergency (ER) | payer MEDICARE, MEDICAID, SELFPAY ==
[2023-09-25 13:45] VITALS: BP 127/65; PULSE 84; RESP 18; TEMP 36.8; O2SAT 98; BMI 29.9
[2023-09-25 14:08] LABS: Adenovirus,PCR Not Detected (NotDetected); Coronavirus 229E Not Detected (NotDetected); Coronavirus NL63 Not Detected (NotDetected); Coronavirus OC43 Not Detected (NotDetected); Coronovirus HKU1,PCR Not Detected (NotDetected); Human Metapneumovirus Not Detected (NotDetected); Influenza A, PCR Not Detected (NotDetected); Influenza AH1, 2009 Not Detected (NotDetected); Influenza AH1, PCR Not Detected (NotDetected); Influenza AH3,PCR Not Detected (NotDetected); Influenza B, PCR Not Detected (NotDetected); Parainfluenza 1, PCR Not Detected (NotDetected); Parainfluenza 2, PCR Not Detected (NotDetected); Parainfluenza 3, PCR Not Detected (NotDetected); Parainfluenza 4, PCR Not Detected (NotDetected); Respiratory Syncytial Virus Not Detected (NotDetected); Rhinovirus/Enterovirus Not Detected (NotDetected)
--- NOTE | 2023-09-25 14:08 | ED_ITS ---
Discharge Plan Disposition Patient Disposition: Home, Self-Care Condition: Good Prescriptions Prescriptions: No Action carvedilol 6.25 mg tablet 6.25 mg PO BID Patient Comments: TAKE ONE TABLET BY MOUTH TWICE DAILY donepezil 10 mg tablet 10 mg PO HS Patient Comments: TAKE ONE TABLET BY MOUTH EVERY DAY AT BEDTIME prednisone 5 mg tablet 10 mg PO DAILY Patient Comments: TAKE ONE TABLET BY MOUTH EVERY DAY clopidogrel 75 mg tablet 75 mg PO DAILY Patient Comments: TAKE ONE TABLET BY MOUTH EVERY DAY chlorthalidone 25 mg tablet 25 mg PO DAILY Patient Comments: TAKE ONE TABLET BY MOUTH EVERY DAY allopurinol 100 mg tablet 100 mg PO DAILY Patient Comments: TAKE ONE TABLET BY MOUTH EVERY DAY leflunomide 20 mg tablet 20 mg PO DAILY Patient Comments: TAKE ONE TABLET BY MOUTH EVERY DAY bupropion HCl 100 mg tablet 100 mg PO DAILY Patient Comments: TAKE ONE TABLET BY MOUTH EVERY MORNING AND TAKE TWO TABLETS BY MOUTH EVERY DAY AT BEDTIME potassium chloride 20 mEq tablet,ER particles/crystals 20 meq PO BID Patient Comments: TAKE ONE TABLET BY MOUTH TWICE DAILY primidone 250 mg tablet 250 mg PO HS Patient Comments: TAKE ONE TABLET BY MOUTH EVERY NIGHT DIRECTED meclizine 25 mg tablet 25 mg PO TIDP PRN (Reason: Vertigo) Patient Comments: TAKE ONE TABLET BY MOUTH THREE TIMES DAILY NEEDED methimazole 5 mg tablet 5 mg PO Q8H Patient Comments: TAKE ONE TABLET BY MOUTH EVERY 8 HOURS gabapentin 300 mg capsule 300 mg PO DIRECTED Patient Comments: TAKE ONE CAPSULE BY MOUTH SIX TIMES DAILY MAY CAUSE DROWSINESS Rx Instructions: TAKE ONE CAPSULE 6 TIMES DAILY omeprazole 20 mg capsule,delayed release(DR/EC) 20 mg PO BID Patient Comments: TAKE ONE CAPSULE BY MOUTH TWICE DAILY bumetanide 1 mg tablet 1 mg PO DAILY Patient Comments: TAKE TWO TABLETS BY MOUTH EVERY DAY FOR fluid dorzolamide-timolol 22.3-6.8 mg/mL drops 1 drp Eye-Both BID montelukast 10 mg tablet 10 mg PO PM Patient Comments: TAKE ONE TABLET BY MOUTH EVERY DAY carbidopa-levodopa 25-100 mg tablet 1 tab PO TID Patient Comments: TAKE ONE TABLET BY MOUTH THREE TIMES DAILY may take with OR without food fluticasone propionate 50 mcg/actuation spray,suspension 1 spray INTRANASAL DAILYP PRN (Reason: Allergy Symptoms) Patient Comments: instill 1-2 [place](s) IN EACH NOSTRIL EVERY DAY DIRECTED memantine 10 mg tablet 10 mg PO BID Patient Comments: TAKE ONE TABLET BY MOUTH TWICE DAILY cholecalciferol (vitamin D3) 25 mcg (1,000 unit) tablet 25 mcg PO BID Patient Comments: TAKE ONE TABLET BY MOUTH TWICE DAILY bupropion HCl 100 mg tablet 200 mg PO HS Patient Comments: TAKE ONE TABLET BY MOUTH EVERY MORNING AND TAKE TWO TABLETS BY MOUTH EVERY DAY AT BEDTIME cetirizine 10 mg Tablet 10 mg PO DAILY aspirin 81 mg Tablet,Delayed Release (Dr/Ec) 81 mg PO DAILY ascorbic acid (vitamin C) [Vitamin C] 500 mg Capsule, Extended Release 500 mg PO DAILY rosuvastatin 20 mg Tablet 20 mg PO HS Jardiance 25 mg Tablet 25 mg PO DAILY colchicine [Mitigare] 0.6 mg Capsule 0.6 mg PO DAILY albuterol sulfate 90 mcg/actuation HFA aerosol inhaler 2 puff INHALATION Q4HP PRN (Reason: Shortness Of Breath) Patient Comments: INHALE TWO PUFFS BY MOUTH EVERY 4 HOURS NEEDED FOR wheezing prednisone 20 mg tablet 20 mg PO DAILY 7 Days Qty: 7 0RF hydrocodone-acetaminophen 5-325 mg tablet 1 tab PO BID PRN (Reason: pain) 5 Days Qty: 10 0RF ondansetron HCl 4 mg tablet 4 mg PO Q8H PRN (Reason: nausea and vomiting) 5 Days Qty: 30 0RF Referrals Follow up/Referrals: Miller Hazel MD [Primary Care Provider] - See instructions Activity Restrictions/Add. Instructions Additional Instructions/Restrictions: *Monitor Temp, Over the counter Motrin or Tylenol as directed/as needed Tylenol every 4 hours and Motrin every 6 hours (as long as your family doctor has told you that you can take it) for fever or pain. and straight to ER if unable to lower temp less than 101.0 after medication given *Warm salt water gargles may help to soothe the throat *Throat Lozenges? *Warm fluids like tea with honey may help to soothe the throat? *Sleep elevated *Humidifier/Vaporizer Follow up IMMEDIATELY for new or worsening symptoms or no Noticeable improvement over the next 48-72 hours. 911 for difficulty breathing or swallowing You were tested for today for ?Upper Respiratory Panel with COVID19 your test result should be back in the next 24-48 hours, you may check your results on the [facility] My Health Portal if your COVID or Influenza is positive you must Quarantine for 5 days Clinical Impressions Clinical Impression: Viral syndrome Instructions Patient Instructions: DI for Viral Syndrome Discharge ED Provider: Symone Casey [facility] [place] HPI General Stated complaint: runny nose, cough, Mode of Arrival: Ambulatory Source of Information: Patient Limitations: No Limitations Time Seen by Provider: 09/25/23 14:08 Description of Symptoms (Recalled from Triage Doc. by RN): PATIENT C/O COUGH, SINUS DRAINAGE, FATIGUE AND HEADACHE SINCE YESTERDAY HEENT Symptoms (Recalled from RN notes): Yes Resp Symptoms (Recalled from RN notes): Yes Skin Symptoms (Recalled from RN notes): No MS Symptoms (Recalled from RN notes): No Functional Status (Recalled from RN notes): WNL History of Present Illness Provider Complaint: Patient states that she started feeling bad yesterday with nasal congestion, body aches, fatigue and cough States that she was around her grandchildren last weekend that has since tested positive for COVID and has a couple of the other viruses going around so they brought her in wanting an URP done and get her urine checked to make sure she doesnt have a UTI states that her urine has had a strong odor at times Related Data Home Medications Medication Instructions Recorded Confirmed allopurinol 100 mg tablet 100 mg PO DAILY Gout 04/10/23 09/01/23 bumetanide 1 mg tablet 1 mg PO DAILY Fluid 04/10/23 09/01/23 bupropion HCl 100 mg tablet 100 mg PO DAILY Mood 04/10/23 09/01/23 bupropion HCl 100 mg tablet 200 mg PO HS Mood 04/10/23 09/01/23 carbidopa 25 mg-levodopa 100 mg 1 tab PO TID Parkinson's Disease 04/10/23 09/01/23 tablet carvedilol 6.25 mg tablet 6.25 mg PO BID Heart Rhythm 04/10/23 09/01/23 chlorthalidone 25 mg tablet 25 mg PO DAILY Fluid 04/10/23 09/01/23 cholecalciferol (vitamin D3) 25 25 mcg PO BID Supplement 04/10/23 09/01/23 mcg (1,000 unit) tablet clopidogrel 75 mg tablet 75 mg PO DAILY Antiplatelet 04/10/23 09/01/23 donepezil 10 mg tablet 10 mg PO HS Memory 04/10/23 09/01/23 dorzolamide 22.3 mg-timolol 6.8 1 drp Eye-Both BID Eye pressure 04/10/23 09/01/23 mg/mL eye drops fluticasone propionate 50 1 spray intranasal DAILYP PRN 04/10/23 09/01/23 mcg/actuation nasal Allergy Symptoms spray,suspension gabapentin 300 mg capsule 300 mg PO DIRECTED Neuropathy 04/10/23 09/01/23 leflunomide 20 mg tablet 20 mg PO DAILY Rheumatoid Arthritis 04/10/23 09/01/23 meclizine 25 mg tablet 25 mg PO TIDP PRN Vertigo 04/10/23 09/01/23 memantine 10 mg tablet 10 mg PO BID Memory 04/10/23 09/01/23 methimazole 5 mg tablet 5 mg PO Q8H Hyperthyroid 04/10/23 09/01/23 montelukast 10 mg tablet 10 mg PO PM Allergy Symptoms 04/10/23 09/01/23 omeprazole 20 mg capsule,delayed 20 mg PO BID Acid Reflux 04/10/23 09/01/23 release potassium chloride 20 mEq 20 meq PO BID Supplement 04/10/23 09/01/23 tablet,extended release(part/cryst) prednisone 5 mg tablet 10 mg PO DAILY Chronic Inflammation 04/10/23 09/01/23 primidone 250 mg tablet 250 mg PO HS Tremors 04/10/23 09/01/23 albuterol sulfate 90 mcg/actuation 2 puff inhalation Q4HP PRN 06/28/23 09/01/23 aerosol inhaler Shortness Of Breath ascorbic acid (vitamin C) 500 mg 500 mg PO DAILY Supplement 06/28/23 09/01/23 capsule,extended release (Vitamin C) aspirin 81 mg tablet,delayed 81 mg PO DAILY Heart Health 06/28/23 09/01/23 release cetirizine 10 mg tablet 10 mg PO DAILY Allergy Symptoms 06/28/23 09/01/23 colchicine 0.6 mg capsule 0.6 mg PO DAILY gout 06/28/23 09/01/23 (Mitigare) empagliflozin 25 mg tablet 25 mg PO DAILY Diabetes 06/28/23 09/01/23 (Jardiance) rosuvastatin 20 mg tablet 20 mg PO HS Cholesterol 06/28/23 09/01/23 Previous Rx's Medication Instructions Recorded hydrocodone 5 mg-acetaminophen 325 1 tab PO BID PRN pain 5 days #10 06/28/23 mg tablet tabs prednisone 20 mg tablet 20 mg PO DAILY 7 days #7 tabs 06/28/23 ondansetron HCl 4 mg tablet 4 mg PO Q8H PRN nausea and 08/04/23 vomiting 5 days #30 tabs Allergies Allergy/AdvReac Type Severity Reaction Status Date / Time prochlorperazine Allergy Intermediate HALLUCINATI Verified 09/01/23 11:43 [PROCHLORPERAZINE] ONS oxycodone [OXYCODONE] Allergy Unknown HALLUCINATI Verified 09/01/23 11:43 ONS ibuprofen [IBUPROFEN] AdvReac Unknown PT HAS Verified 09/01/23 11:43 RENAL FAILURE Worker's Comp Is this a Worker's Comp case?: [facility] Disclaimer: The information contained in this section may have been updated after the patient was seen, as this information can be updated by other users. 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 Carotid bruit Cataract COPD (chronic obstructive pulmonary disease) Diastolic dysfunction Difficulty swallowing DVT (deep venous thrombosis) Edema GERD (gastroesophageal reflux disease) Heart murmur HHD (hypertensive heart disease) History of COVID-19 HLD (hyperlipidemia) HTN (hypertension), benign Hypothyroid Lymphedema Palpitations Peripheral arterial disease PVD (peripheral vascular disease) Renal disease Right carotid bruit Syncope Systemic lupus Unstable angina Surgical History Cataract extraction status, right eye H/O rotator cuff surgery H/O tubal ligation History of back surgery History of colonoscopy Family History Other Alcoholism Anemia Cancer Coronary artery disease FHx: mental illness Heart attack Hyperlipidemia Hypertension Kidney disease Substance abuse Tuberculosis 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 Smoking Status: Never smoker alcohol intake: former substance use type: denies use current occupational status: retired and disabled Travel in the last 8 weeks: None household members: children current occupational exposures/hazards: No ROS Obtained: Yes All systems reviewed & no additional complaints except as documented and Yes Systems reviewed as appropriate & no additional complaints except as documented Constitutional Constitutional: Reports system reviewed and no additional complaints, except as documented, Reports as per HPI, Reports body ache, Reports chills and Reports headache(s) ENT Ears, Nose, Mouth, and Throat: Reports system reviewed and no additional complaints, except as documented, Reports as per HPI, Reports headache(s), Reports nasal congestion and Reports nasal discharge Cardiovascular Cardiovascular: Reports system reviewed and no additional complaints, except as documented and Reports as per HPI Respiratory Respiratory: Reports system reviewed and no additional complaints, except as documented, Reports as per HPI, Denies shortness of breath, Denies chest congestion and Reports cough Gastrointestinal Gastrointestingal: Reports system reviewed and no additional complaints, except as documented and as per HPI Neurologic Neurologic: Reports headache(s) Physical Exam General General appearance: alert and in no apparent distress ENT ENT exam: Present mucous membranes moist Chest Chest inspection: Present normal inspection and symmetric chest wall rise Respiratory Respiratory exam: Present normal lung sounds bilaterally; Absent respiratory distress or wheezes Cardiovascular Cardiovascular exam: Present regular rate, normal rhythm and normal heart sounds Neurological Exam Neurological exam: Present alert, oriented X3 and normal gait Medical Decision Making [place] Inquiry Pt receiving controlled substance: No [place] was queried for this patient: No Vital Signs: 09/25/23 13:45 Temperature 98.2 F Temperature Source Oral Pulse Rate [Right Brachial] 84 Respiratory Rate 18 Blood Pressure [Right Arm] 127/65 Blood Pressure Mean [Right Arm] 85 Blood Pressure Source [Right Arm] Automatic Cuff Blood Pressure Position [Right Arm] Sitting 02 Sat by Pulse Oximetry 98 Oxygen Delivery Method Room Air Lab Data Lab results reviewed: Yes I reviewed the patient's lab results. Orders (Tests/Meds): ORDERS Category Date Time Status Full Resp Panel w/COVID ([facility]) Routine Lab 09/25/23 13:42 Received
[2023-09-25 14:15] VITALS: BP 127/65; PULSE 84; RESP 18; TEMP 36.8; O2SAT 98
[2023-09-25 14:25] LABS: Apearance,Urine Clear (Clear); Bilirubin,Urine Negative (Negative); Blood, Urine Negative (Negative); Color,Urine Dark Yellow (Yellow); Glucose,Urine (UA) Negative (Negative); Ketones,Urine Negative (Negative); Protein,Urine Negative (Negative); Specific Gravity, Urine 1.015 (1.005-1.030); UTC Leukocyte Esterase,Urine Negative (Negative); UTC Nitrate,Urine Negative (Negative); Urobilinogen,Urine 0.2 EU/dl (0.2)
[2023-09-25 17:26] LABS: Coronavirus 19, PCR Detected (NotDetected)
== END 2023-09-25 14:18 | disposition home or self-care (01) ==
PROVIDERS: Emergency Provider Nurse Practitioner; PCP Internal Medicine Adolescent Medicine
DX: U07.1 COVID-19 (principal); R51.9 Headache, unspecified; R05.9 Cough, unspecified; R09.81 Nasal congestion; R53.83 Other fatigue; M79.18 Myalgia, other site; I25.119 Atherosclerotic heart disease of native coronary artery with unspecified angina pectoris; J44.9 Chronic obstructive pulmonary disease, unspecified; K21.9 Gastro-esophageal reflux disease without esophagitis; I11.9 Hypertensive heart disease without heart failure; E78.5 Hyperlipidemia, unspecified; E03.9 Hypothyroidism, unspecified; I73.9 Peripheral vascular disease, unspecified
CPT/HCPCS: 81003; 87632; 87635; 99204; 99212; G0463

== ENCOUNTER 2023-11-01 13:41 | Outpatient (CLI) | payer MEDICARE, MEDICAID, SELFPAY ==
[2023-11-01 13:53] LABS: Microscopic, Urine URINE MICROSCOPIC (MICROSCOPIC)
[2023-11-01 14:26] LABS: Basophils % 0.1 % (0.1-2.0); Eosinophils # 0.2 K/mm3 (0.0-0.4); Eosinophils % 3.2 % (0.1-12.0); Hematocrit 39.7 % (37.0-47.0); Hemoglobin 12.6 g/dL (12.2-16.2); Lymphocytes % 26.6 % (10-50); Mean Corpuscular HGB Conc 31.7 g/dL (31.8-35.4); Mean Corpuscular Hemoglobin 28.1 pg (27.0-31.2); Mean Corpuscular Volume 88.5 fl (81-99); Mean Platelet Volume 8.2 fl (7.4-10.4); Monocytes # 0.5 K/mm3 (0.1-1.0); Monocytes % 6.9 % (1.7-9.3); Neutrophils # 4.8 K/mm3 (1.8-7.8); Neutrophils % 63.2 % (37.0-80.0); Platelet Count 254 K/mm3 (142-424); Red Blood Count 4.49 M/mm3 (4.20-5.40); Red Cell Distribution Width 17.5 % (11.5-17.5); White Blood Count 7.6 K/mm3 (4.8-10.8)
[2023-11-01 14:39] LABS: Appearance,Urine CLEAR (Clear); Bilirubin,Urine Negative (Negative); Blood, Urine Negative (Negative); Color,Urine YELLOW (Yellow); Glucose,Urine (UA) 3+ (Negative); Ketones,Urine Negative (Negative); Leukocyte Esterase,Urine Negative (Negative); Nitrate,Urine Negative (Negative); PH,Urine 6.5 (5.0-8.5); Protein,Urine Negative (Negative); Specific Gravity, Urine <= 1.005 (1.005-1.030); Urobilinogen,Urine 0.2 EU/dl (0.2)
[2023-11-01 14:43] LABS: Alanine Aminotransferase 12 U/L (12-78); Albumin/Globulin Ratio 1.4 (1.1-1.8); Alkaline Phosphatase 142 U/L (38-126); Anion Gap 10.9 mEq/L (5-15); Aspartate Amino Transferase 29 U/L (14-36); Bilirubin,Total 0.4 mg/dl (0.2-1.3); Blood Urea Nitrogen 33 mg/dl (7-17); Calcium 9.4 mg/dl (8.4-10.2); Carbon Dioxide 30 mmol/L (22.0-30.0); Chloride 96 mmol/L (98-107); Estimated Glomerular Filt Rate 31 ml/min (>60); GFR (African American) 38 ML/MIN (>60); Globulin 2.8 g/dL (1.3-3.2); Glucose 77 mg/dl (74-100); Potassium 3.9 mmoL/L (3.5-5.1); Sodium 133 mmol/L (136-145); Total Protein,Serum 6.8 g/dl (6.3-8.2)
[2023-11-01 14:50] LABS: C-Reactive Protein 33.6 mg/L (0-4)
[2023-11-01 14:54] LABS: Erythrocyte Sedimentation Rate 26 mm/hr (0-30)
== END 2023-11-01 23:59 ==
LOC: LAB 13:43
PROVIDERS: PCP Internal Medicine Adolescent Medicine; Visit Provider Nurse Practitioner Family
DX: M06.80 Other specified rheumatoid arthritis, unspecified site (principal); M32.9 Systemic lupus erythematosus, unspecified; R82.90 Unspecified abnormal findings in urine; B96.89 Other specified bacterial agents as the cause of diseases classified elsewhere
CPT/HCPCS: 36415; 80053; 81001; 85025; 85651; 86140; 87086

== ENCOUNTER 2023-12-01 13:00 | Outpatient (RCR) | payer MEDICARE, MEDICAID, SELFPAY | END 2023-12-01 14:15 | disposition home or self-care (01) | LOC: PT 13:00 | PROVIDERS: Visit Provider Psychiatry & Neurology Neurology | DX: R42 Dizziness and giddiness (principal) | CPT/HCPCS: 97163 ==

== ENCOUNTER 2023-12-22 10:17 | Outpatient (POV) | payer MEDICARE, MEDICAID, SELFPAY | END 2023-12-22 23:59 | disposition home or self-care (01) | LOC: SC 10:18 | PROVIDERS: Visit Provider Specialist/Technologist | DX: Z00.00 Encounter for general adult medical examination without abnormal findings (principal) ==

== ENCOUNTER 2024-01-18 13:00 | Outpatient (RCR) | payer MEDICARE, MEDICAID, SELFPAY | END 2024-01-18 14:20 | disposition home or self-care (01) | LOC: OT 13:00 | PROVIDERS: Visit Provider Orthopaedic Surgery | DX: M25.511 Pain in right shoulder (principal); M25.811 Other specified joint disorders, right shoulder | CPT/HCPCS: 97010; 97014; 97110; 97140; 97164; 97165; G0283 ==

== ENCOUNTER 2024-03-03 15:55 | Inpatient (IN) | payer MEDICARE, MEDICAID, SELFPAY ==
[2024-03-03] VITALS (7 sets, daily range): BP systolic 129–168; BP diastolic 57–67; PULSE 64–91; RESP 12–18; TEMP 36.6–36.9; O2SAT 96–100; BMI 34.4; BMI 35.1
--- NOTE | 2024-03-03 16:05 | ECG_ITS ---
APPROVED REPORT Exam: Resting ECG HR:84 bpm ECG Measurements Heart Rate 84 AXES RI 146 P 56 QRSd 93 QRS 25 QT 359 T 77 QTc 400 Conclusion SINUS RHYTHM WITH OCCASIONAL SUPRAVENTRICULAR PREMATURE COMPLEXES LEFT ATRIAL ENLARGEMENT [-0.15mV P-WAVE IN V1/V2] ANTEROSEPTAL MYOCARDIAL INFARCTION , OF INDETERMINATE AGE [40+ ms Q WAVE IN V1-V4] ABNORMAL ECG UNCONFIRMED REPORT Electronically signed by : Cory Fine, 03/03/2024 23:04:18
--- NOTE | 2024-03-03 16:25 | ED_ITS ---
Discharge Plan Disposition Patient Disposition: Admitted Prescriptions Prescriptions: No Action oxybutynin chloride 10 mg tablet extended release 24hr PO Patient Comments: TAKE ONE TABLET BY MOUTH EVERY DAY Benlysta 200 mg/mL auto-injector SQ omeprazole 40 mg capsule,delayed release(DR/EC) 40 mg PO DAILY ascorbic acid (vitamin C) [Vitamin C] 500 mg tablet 500 mg PO DAILY Patient Comments: TAKE 1 TABLET BY MOUTH EVERY DAY prednisone 5 mg tablet PO Patient Comments: take 4 tablets by MOUTH ONCE daily in THE morning FOR 3 DAYS, THEN take 3 tablets each morning FOR 3 DAYS, THEN take 2 tablets each morning FOR 3 DAYS, THEN take 1 tablet each morning FOR 3 DAYS, THEN STOP --take with food-- bumetanide 1 mg tablet See Rx Instructions .ROUTE .COMPLEX Qty: 90 3RF Dose Instruction: TAKE THREE TABLETS BY MOUTH EVERY DAY FOR fluid Rx Instructions: TAKE THREE TABLETS BY MOUTH EVERY DAY FOR fluid carvedilol 6.25 mg tablet 6.25 mg PO BID Patient Comments: TAKE ONE TABLET BY MOUTH TWICE DAILY donepezil 10 mg tablet 10 mg PO HS Patient Comments: TAKE ONE TABLET BY MOUTH EVERY DAY AT BEDTIME clopidogrel 75 mg tablet 75 mg PO DAILY Patient Comments: TAKE ONE TABLET BY MOUTH EVERY DAY chlorthalidone 25 mg tablet 25 mg PO DAILY Patient Comments: TAKE ONE TABLET BY MOUTH EVERY DAY allopurinol 100 mg tablet 100 mg PO DAILY Patient Comments: TAKE ONE TABLET BY MOUTH EVERY DAY leflunomide 20 mg tablet 20 mg PO DAILY Patient Comments: TAKE ONE TABLET BY MOUTH EVERY DAY bupropion HCl 100 mg tablet 100 mg PO DAILY Patient Comments: TAKE ONE TABLET BY MOUTH EVERY MORNING AND TAKE TWO TABLETS BY MOUTH EVERY DAY AT BEDTIME potassium chloride 20 mEq tablet,ER particles/crystals 20 meq PO BID Patient Comments: TAKE ONE TABLET BY MOUTH TWICE DAILY primidone 250 mg tablet 250 mg PO HS Patient Comments: TAKE ONE TABLET BY MOUTH EVERY NIGHT DIRECTED meclizine 25 mg tablet 25 mg PO TIDP PRN (Reason: Vertigo) Patient Comments: TAKE ONE TABLET BY MOUTH THREE TIMES DAILY NEEDED methimazole 5 mg tablet 5 mg PO Q8H Patient Comments: TAKE ONE TABLET BY MOUTH EVERY 8 HOURS gabapentin 300 mg capsule 300 mg PO DIRECTED Patient Comments: TAKE ONE CAPSULE BY MOUTH SIX TIMES DAILY MAY CAUSE DROWSINESS Rx Instructions: TAKE ONE CAPSULE 6 TIMES DAILY dorzolamide-timolol 22.3-6.8 mg/mL drops 1 drp Eye-Both BID montelukast 10 mg tablet 10 mg PO PM Patient Comments: TAKE ONE TABLET BY MOUTH EVERY DAY carbidopa-levodopa 25-100 mg tablet 1 tab PO TID Patient Comments: TAKE ONE TABLET BY MOUTH THREE TIMES DAILY may take with OR without food fluticasone propionate 50 mcg/actuation spray,suspension 1 spray INTRANASAL DAILYP PRN (Reason: Allergy Symptoms) Patient Comments: instill 1-2 [place](s) IN EACH NOSTRIL EVERY DAY DIRECTED memantine 10 mg tablet 10 mg PO BID Patient Comments: TAKE ONE TABLET BY MOUTH TWICE DAILY cholecalciferol (vitamin D3) 25 mcg (1,000 unit) tablet 25 mcg PO BID Patient Comments: TAKE ONE TABLET BY MOUTH TWICE DAILY bupropion HCl 100 mg tablet 200 mg PO HS Patient Comments: TAKE ONE TABLET BY MOUTH EVERY MORNING AND TAKE TWO TABLETS BY MOUTH EVERY DAY AT BEDTIME cetirizine 10 mg Tablet 10 mg PO DAILY aspirin 81 mg Tablet,Delayed Release (Dr/Ec) 81 mg PO DAILY rosuvastatin 20 mg Tablet 20 mg PO HS Jardiance 25 mg Tablet 25 mg PO DAILY colchicine [Mitigare] 0.6 mg Capsule 0.6 mg PO DAILY albuterol sulfate 90 mcg/actuation HFA aerosol inhaler 2 puff INHALATION Q4HP PRN (Reason: Shortness Of Breath) Patient Comments: INHALE TWO PUFFS BY MOUTH EVERY 4 HOURS NEEDED FOR wheezing hydrocodone-acetaminophen 5-325 mg tablet 1 tab PO BID PRN (Reason: pain) 5 Days Qty: 10 0RF ondansetron HCl 4 mg tablet 4 mg PO Q8H PRN (Reason: nausea and vomiting) 5 Days Qty: 30 0RF Referrals Follow up/Referrals: Miller Hazel MD [Primary Care Provider] - See instructions Clinical Impressions Clinical Impression: Syncope, Acute hyponatremia Instructions Patient Instructions: DI for Syncope in Adults (Fainting), DI for Syncope in Children (Fainting) Discharge ED Provider: Robert Fine General Adult HPI General Chief complaint: Syncope Stated complaint: Passed out 3 X this morning,LBP Time Seen by Provider: 03/03/24 16:00 Mode of Arrival: Wheelchair Source of Information: Patient Limitations: No Limitations Description of Symptoms (Recalled from ER Triage Doc. by RN): passed out three times this morning. feeling tired. edema to ble. History of Present Illness HPI narrative: Patient is a 78-year-old female presenting today with syncope. She has a history of pulmonary hypertension and diastolic dysfunction coronary disease and recent left knee replacement within the last several weeks presenting today after passing out 3 times in the bathroom. She states that each time that she had a prodrome with lightheadedness prior to passing out. No chest pain or shortness of breath. No increasing or worsening left lower extremity swelling since the surgery. No pain in that leg. She denies any pain at the moment. Denies any fevers chills or any other preceding symptoms. She does state that she is extremely fatigued because she has a pure wick that was causing her issues last night she was up and down out of bed multiple times throughout the night stating that she had very little sleep. Other than feeling tired which she states is appropriate for the amount of sleep that she got she denies any other symptoms at the moment. Related Data Home Medications Medication Instructions Recorded Confirmed allopurinol 100 mg tablet 100 mg PO DAILY Gout 04/10/23 12/22/23 bupropion HCl 100 mg tablet 100 mg PO DAILY Mood 04/10/23 12/22/23 bupropion HCl 100 mg tablet 200 mg PO HS Mood 04/10/23 12/22/23 carbidopa 25 mg-levodopa 100 mg 1 tab PO TID Parkinson's Disease 04/10/23 12/22/23 tablet carvedilol 6.25 mg tablet 6.25 mg PO BID Heart Rhythm 04/10/23 12/22/23 chlorthalidone 25 mg tablet 25 mg PO DAILY Fluid 04/10/23 12/22/23 cholecalciferol (vitamin D3) 25 25 mcg PO BID Supplement 04/10/23 12/22/23 mcg (1,000 unit) tablet clopidogrel 75 mg tablet 75 mg PO DAILY Antiplatelet 04/10/23 12/22/23 donepezil 10 mg tablet 10 mg PO HS Memory 04/10/23 12/22/23 dorzolamide 22.3 mg-timolol 6.8 1 drp Eye-Both BID Eye pressure 04/10/23 12/22/23 mg/mL eye drops fluticasone propionate 50 1 spray intranasal DAILYP PRN 04/10/23 12/22/23 mcg/actuation nasal Allergy Symptoms spray,suspension gabapentin 300 mg capsule 300 mg PO DIRECTED Neuropathy 04/10/23 12/22/23 leflunomide 20 mg tablet 20 mg PO DAILY Rheumatoid Arthritis 04/10/23 12/22/23 meclizine 25 mg tablet 25 mg PO TIDP PRN Vertigo 04/10/23 12/22/23 memantine 10 mg tablet 10 mg PO BID Memory 04/10/23 12/22/23 methimazole 5 mg tablet 5 mg PO Q8H Hyperthyroid 04/10/23 12/22/23 montelukast 10 mg tablet 10 mg PO PM Allergy Symptoms 04/10/23 12/22/23 potassium chloride 20 mEq 20 meq PO BID Supplement 04/10/23 12/22/23 tablet,extended release(part/cryst) primidone 250 mg tablet 250 mg PO HS Tremors 04/10/23 12/22/23 albuterol sulfate 90 mcg/actuation 2 puff inhalation Q4HP PRN 06/28/23 12/22/23 aerosol inhaler Shortness Of Breath aspirin 81 mg tablet,delayed 81 mg PO DAILY Heart Health 06/28/23 12/22/23 release cetirizine 10 mg tablet 10 mg PO DAILY Allergy Symptoms 06/28/23 12/22/23 colchicine 0.6 mg capsule 0.6 mg PO DAILY gout 06/28/23 12/22/23 (Mitigare) empagliflozin 25 mg tablet 25 mg PO DAILY Diabetes 06/28/23 12/22/23 (Jardiance) rosuvastatin 20 mg tablet 20 mg PO HS Cholesterol 06/28/23 12/22/23 ascorbic acid (vitamin C) 500 mg 500 mg PO DAILY 10/28/23 12/22/23 tablet (Vitamin C) omeprazole 40 mg capsule,delayed 40 mg PO DAILY 10/28/23 12/22/23 release belimumab 200 mg/mL subcutaneous mg SQ 12/14/23 12/22/23 auto-injector (Benlysta) oxybutynin chloride 10 mg mg PO 12/14/23 12/22/23 tablet,extended release 24 hr prednisone 5 mg tablet mg PO 12/22/23 12/22/23 Previous Rx's Medication Instructions Recorded hydrocodone 5 mg-acetaminophen 325 1 tab PO BID PRN pain 5 days #10 06/28/23 mg tablet tabs ondansetron HCl 4 mg tablet 4 mg PO Q8H PRN nausea and 08/04/23 vomiting 5 days #30 tabs bumetanide 1 mg tablet See Rx Instructions .Route 11/18/23 .COMPLEX #90 tabs Allergies Allergy/AdvReac Type Severity Reaction Status Date / Time prochlorperazine Allergy Intermediate HALLUCINATI Verified 12/22/23 10:55 [PROCHLORPERAZINE] ONS oxycodone [OXYCODONE] Allergy Unknown HALLUCINATI Verified 12/22/23 10:55 ONS ibuprofen [IBUPROFEN] AdvReac Unknown PT HAS Verified 12/22/23 10:55 RENAL FAILURE [facility] Disclaimer: The information contained in this section may have been updated after the patient was seen, as this information can be updated by other users. 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 (Updated 03/03/24 @ 17:33 by Robert Fine MD) Tinnitus SNHL (sensorineural hearing loss) Chronic eustachian tube dysfunction CAD in [place] artery Syncope Bilateral carotid artery disease Lymphedema Angina pectoris History of COVID-19 COPD (chronic obstructive pulmonary disease) Systemic lupus Hypothyroid Difficulty swallowing Unstable angina Cataract Renal disease PVD (peripheral vascular disease) Palpitations HTN (hypertension), benign Heart murmur HLD (hyperlipidemia) GERD (gastroesophageal reflux disease) DVT (deep venous thrombosis) Peripheral arterial disease Right carotid bruit Carotid bruit Edema Diastolic dysfunction HHD (hypertensive heart disease) Surgical History History of colonoscopy H/O tubal ligation H/O rotator cuff surgery History of back surgery Cataract extraction status, right eye Family History Other Alcoholism Anemia Cancer Coronary artery disease FHx: mental illness Heart attack Hyperlipidemia Hypertension Kidney disease Substance abuse Tuberculosis 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 Smoking Status: Never smoker alcohol intake: former substance use type: denies use current occupational status: retired and disabled Travel in the last 8 weeks: None household members: children current occupational exposures/hazards: No ROS Obtained: Yes All systems reviewed & no additional complaints except as documented Physical Exam General General appearance: alert and in no apparent distress Respiratory Respiratory exam: Present normal lung sounds bilaterally; Absent respiratory distress Cardiovascular Cardiovascular exam: Present regular rate and normal rhythm Abdominal Exam Abdominal exam: Present soft and distention Neurological Exam Neurological exam: Present alert and oriented X3 Medical Decision Making [place] Inquiry Pt receiving controlled substance: No Vital Signs: 03/03/24 15:56 Temperature 98.1 F Temperature Source Oral Pulse Rate [Right] 85 Respiratory Rate 18 Blood Pressure [Right Arm] 157/66 H Blood Pressure Mean [Right Arm] 96 02 Sat by Pulse Oximetry 96 Oxygen Delivery Method Room Air Lab Data Lab results reviewed: Yes I reviewed the patient's lab results. Lab Results 03/03/24 16:17: WBC 7.2, RBC 4.05 L, Hgb 11.5 L, Hct 36.0 L, MCV 88.7, MCH 28.3, MCHC 32.0, RDW 17.5, Plt Count 458 H, MPV 8.5, Neut % (Auto) 68.2, Lymph % (Auto) 18.6, Sharp % (Auto) 6.2, Eos % (Auto) 6.2, Baso % (Auto) 0.8, Neut # (Auto) 4.9, Lymph # (Auto) 1.3, Sharp # (Auto) 0.4, Eos # (Auto) 0.5 H, Baso # (Auto) 0.1, D-Dimer 3.71 H, Sodium 127 L, Potassium 3.7, Chloride 87 L, Carbon Dioxide 28, Anion Gap 15.7 H, BUN 25 H, Creatinine 1.50 H, Estimated Creat Clear 43, Estimated GFR 34 L, Est GFR ( Amer) 41 L, Glucose 115 H, Calcium 9.4, Magnesium 1.5 L, Total Bilirubin 0.6, AST 40 H, ALT 13, Alkaline Phosphatase 119, Troponin I 0.01, NT-Pro-B Natriuret Pep 421, Total Protein 6.8, Albumin 3.9, Globulin 2.9, Albumin/Globulin Ratio 1.3 03/03/24 16:17 03/03/24 16:17 Orders (Tests/Meds): ED MEDICATIONS Discontinued Medications Generic Name Dose Route Start Last Admin Trade Name Freq PRN Reason Stop Dose Admin Lactated Ringer's 1,000 mls @ 999 mls/hr 03/03/24 16:30 03/03/24 16:41 Lactated Ringer's 1000 Ml Bag IV 03/03/24 17:30 999 mls/hr .Q1H1M HERBERT Administration Iopamidol 70 ml 03/03/24 17:17 03/03/24 17:19 Iopamidol-370 (76%);100ml Bottle IV 03/03/24 17:18 70 ml ONCE ONE Administration Sodium Chloride 50 ml 03/03/24 17:17 03/03/24 17:19 0.9 % Sodium Chloride 50 Ml Vial IV 03/03/24 17:18 50 ml ONCE ONE Administration Sodium Chloride 10 ml 03/03/24 17:17 03/03/24 17:19 Sodium Chloride 0.9% 10ml Syr (Rad Only) IV 03/03/24 17:18 10 ml ONCE ONE Administration ORDERS Category Date Time Status CT angio chest PE protocol Stat Cat Scan 03/03/24 17:04 Taken BNP [NT Pro Brain Natriuretic Pep.] Stat Lab 03/03/24 16:17 Completed CBC w/Auto Diff [Complete Blood Count Auto Diff] Stat Lab 03/03/24 16:17 Completed CMP [Comprehensive Metabolic Panel] Stat Lab 03/03/24 16:17 Completed D-Dimer Stat Lab 03/03/24 16:17 Completed Magnesium Stat Lab 03/03/24 16:17 Completed Trop I [Troponin I] Stat Lab 03/03/24 16:17 Completed Troponin I Q3H Lab 03/03/24 19:30 Ordered Troponin I Q3H Lab 03/03/24 22:30 Ordered HEART Score History (anamnesis): Slightly suspicious ECG: Non-specific disturbance Age: >65 years Risk factors: Atherosclerosis history Troponin: </= normal limit HEART Score: 5 Medical Decision Narrative: 78-year-old female with above history and physical. Differential includes neurocardiogenic syncope with, arrhythmia, pulmonary embolism etc. Given the fact that she recently had surgery to her left lower extremity with multiple syncopal episodes will obtain a D-dimer I will use a cutoff of 0.5 in this particular situation for CT PE. EKG was performed which I first interpreted shows a ventricular rate of 84 sinus rhythm there are anteroseptal Q waves consistent with old SD no acute ischemic changes noted there is normal axis no significant conduction abnormalities there is evidence of left atrial enlargement. Overall she is very well-appearing at the moment. IV fluids will be administered she feels that she is dehydrated. Basic labs are pending I will reassess. Reassessment patient remains very stable D-dimer significantly elevated to the point of needing to get a CT PE which was performed I personally interpreted this I do not see a pulmonary embolism or any acute cardiopulmonary abnormality. Labs remarkable for sodium of 127. This is unclear as to what is the cause of this. This will need to be worked up further inpatient. Additionally the fact that she had 3 syncopal episodes suggest that I cannot rule out an arrhythmia she will need to be on telemetry monitoring. I spoke with Dr. Quesada with hospital medicine who is agreeable to keep this patient for telemetry observation and further evaluation of her hyponatremia and syncope. Critical Care Critical Care Time Critical Care Time: No
[2024-03-03 16:39] LABS: Basophils # 0.1 K/mm3 (0-0.2); Basophils % 0.8 % (0.1-2.0); Eosinophils # 0.5 K/mm3 (0.0-0.4); Eosinophils % 6.2 % (0.1-12.0); Hemoglobin 11.5 g/dL (12.2-16.2); Lymphocytes # 1.3 K/mm3 (0.7-4.5); Lymphocytes % 18.6 % (10-50); Mean Corpuscular Hemoglobin 28.3 pg (27.0-31.2); Mean Corpuscular Volume 88.7 fl (81-99); Mean Platelet Volume 8.5 fl (7.4-10.4); Monocytes # 0.4 K/mm3 (0.1-1.0); Monocytes % 6.2 % (1.7-9.3); Neutrophils # 4.9 K/mm3 (1.8-7.8); Neutrophils % 68.2 % (37.0-80.0); Platelet Count 458 K/mm3 (142-424); Red Blood Count 4.05 M/mm3 (4.20-5.40); Red Cell Distribution Width 17.5 % (11.5-17.5); White Blood Count 7.2 K/mm3 (4.8-10.8)
[2024-03-03] MEDS: LACTATED RINGERS 1000ML 1,000 ML 999 ML IV (16:41)
[2024-03-03 16:42] LABS: Magnesium 1.5 mg/dl (1.6-2.3)
[2024-03-03 16:43] LABS: Alanine Aminotransferase 13 U/L (12-78); Albumin Level 3.9 g/dl (3.5-5.0); Albumin/Globulin Ratio 1.3 (1.1-1.8); Alkaline Phosphatase 119 U/L (38-126); Anion Gap 15.7 mEq/L (5-15); Aspartate Amino Transferase 40 U/L (14-36); Bilirubin,Total 0.6 mg/dl (0.2-1.3); Blood Urea Nitrogen 25 mg/dl (7-17); Calcium 9.4 mg/dl (8.4-10.2); Carbon Dioxide 28 mmol/L (22.0-30.0); Chloride 87 mmol/L (98-107); Creatinine Clearance Estimated 43 mL/min (50-200); Estimated Glomerular Filt Rate 34 ml/min (>60); GFR (African American) 41 ML/MIN (>60); Globulin 2.9 g/dL (1.3-3.2); Glucose 115 mg/dl (74-100); Potassium 3.7 mmoL/L (3.5-5.1); Sodium 127 mmol/L (136-145); Total Protein,Serum 6.8 g/dl (6.3-8.2)
[2024-03-03 16:53] LABS: NT Pro Brain Natriuretic Pep. 421 pg/mL (0-450)
[2024-03-03 16:55] LABS: D-Dimer 3.71 ug/mL (0.0-0.5)
[2024-03-03 16:57] LABS: Troponin I 0.01 ng/ml (0.00-0.034)
--- NOTE | 2024-03-03 17:00 | PC.NURSE ---
Rounded on patient, declines needs. Son at bedside.
--- NOTE | 2024-03-03 17:04 | CT_ITS ---
PROCEDURE INFORMATION: Exam: CTA Chest With Contrast Exam date and time: 03/03/2024 5:17 PM Age: 78 years old Clinical indication: Abnormal findings; Abnormal diagnostic tests; Elevated d-dimer; Additional info: Elevated dimer, syncope TECHNIQUE: Imaging protocol: Computed tomographic angiography of the chest with contrast. Exam focused on the arteries. 3D rendering (Not supervised by radiologist): MIP and/or 3D reconstructed images were created by the technologist. Radiation optimization: All CT scans at this facility use at least one of these dose optimization techniques: automated exposure control; mA and/or kV adjustment per patient size (includes targeted exams where dose is matched to clinical indication); or iterative reconstruction. Contrast material: ISOVUE 370; Contrast volume: 70 ml; Contrast route: INTRAVENOUS (IV); COMPARISON: 1. CT HIGH RESOLUTION CHEST 08/27/2022 1:[address] CHEST WO CON 01/13/2021 7:04 PM FINDINGS: Pulmonary arteries: Questionable filling defects in subsegmental right lobe pulmonary arterial branches likely artifactual related to bolus timing as well as motion. No large central pulmonary arterial filling defect is seen. Aorta: There is atherosclerotic disease of the visualized aorta and its major branch vessels. Trachea: There are retained secretions in the trachea. Lungs: Scattered areas of bronchial wall thickening which are likely chronic inflammatory. A few areas of subpleural reticulation are noted, nonspecific. Pleural spaces: Unremarkable. No pneumothorax. No pleural effusion. Heart: Unremarkable. No cardiomegaly. No pericardial effusion. Coronary arteries: There is moderate coronary atherosclerotic disease/calcification although evaluation is limited secondary to the non gated nature of the study. Lymph nodes: Unremarkable. No enlarged lymph nodes. Bones/joints: Status post right shoulder arthroplasty. There is diffuse degenerative disease of the visualized osseous structures. There is thoracolumbar surgical hardware. Soft tissues: Unremarkable. Other findings: There is a calcified granuloma in the right lobe. Motion artifact mildly limits evaluation. Motion artifact mildly limits evaluation. IMPRESSION: 1. Questionable filling defects in subsegmental right lobe pulmonary arterial branches likely artifactual related to bolus timing as well as motion. No large central pulmonary arterial filling defect is seen. 2. No dense parenchymal consolidation, pleural effusion, or pneumothorax.
[2024-03-03] MEDS: IOPAMIDOL-370 (76%);100ML BOTTLE 70 ML IV (17:19)
[2024-03-03] MEDS: 0.9 % SODIUM CHLORIDE 50 ML VIAL IV (17:19)
[2024-03-03] MEDS: SODIUM CHLORIDE 0.9% 10ML SYR (RAD ONLY) 10 ML IV (17:19)
--- NOTE | 2024-03-03 17:34 | PC.NURSE ---
Patient admitted to room 213 for hyponatremia and syncopal episodes to hospitalist; observation status.
--- NOTE | 2024-03-03 17:37 | PC.NURSE ---
instructional supervisor notified of admission to hospitalist
--- NOTE | 2024-03-03 17:42 | PC.NURSE ---
called dietary for dinner tray
--- NOTE | 2024-03-03 17:46 | PC.NURSE ---
Pt assisted to the bathroom by staff
--- NOTE | 2024-03-03 18:02 | PC.NURSE ---
Gave report to Josiah Cordero RN
--- NOTE | 2024-03-03 18:28 | PC.NURSE ---
arrived by w/c from ED
[2024-03-03] MEDS: LACTATED RINGERS 1000ML 1,000 ML 50 ML IV (18:34)
[2024-03-03] MEDS: HEPARIN SODIUM 5,000 UNIT/ML VIAL 5000 UNIT SQ (18:35)
[2024-03-03] MEDS: HYDROCODONE/APAP 5/325 MG TABLET 1 TAB PO (19:38)
--- NOTE | 2024-03-03 19:56 | P.HP_ITS ---
History of Present Illness *Admission Date: 03/03/24 *Reason for visit:: multiples syncope *History of present illness: This is a 78-year-old female with PMHx CKD, HTN, HLD. carotid disease, PAD, Diastolic dysfunction, and recent left knee replacement, presented to ED today with multiples syncope. Patient alert and oriented referred that she had a prodrome with lightheadedness prior to passing out. happened 3 times today, while finishing shower. No chest pain or shortness of breath. No increasing or worsening left lower extremity swelling since the surgery. No pain in that leg. She denies any pain at the moment. Denies any fevers chills or any other preceding symptoms. Other than feeling tired which she states is appropriate for the amount of sleep that she got she denies any other symptoms at the moment. Admitted for further managment [facility] Disclaimer: The information contained in this section may have been updated after the patient was seen, as this information can be updated by other users. 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 (Updated 03/04/24 @ 01:34 by Getachew Bauer APRN) Tinnitus SNHL (sensorineural hearing loss) Chronic eustachian tube dysfunction CAD in [place] artery Syncope Bilateral carotid artery disease Lymphedema Angina pectoris History of COVID-19 COPD (chronic obstructive pulmonary disease) Systemic lupus Hypothyroid Difficulty swallowing Unstable angina Cataract Renal disease PVD (peripheral vascular disease) Palpitations HTN (hypertension), benign Heart murmur HLD (hyperlipidemia) GERD (gastroesophageal reflux disease) DVT (deep venous thrombosis) Peripheral arterial disease Right carotid bruit Carotid bruit Edema Diastolic dysfunction HHD (hypertensive heart disease) Surgical History History of colonoscopy H/O tubal ligation H/O rotator cuff surgery History of back surgery Cataract extraction status, right eye Family History Other Alcoholism Anemia Cancer Coronary artery disease FHx: mental illness Heart attack Hyperlipidemia Hypertension Kidney disease Substance abuse Tuberculosis 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 (Updated 03/03/24 @ 18:06 by Clair Combs RN) Smoking Status: Never smoker alcohol intake: former substance use type: denies use current occupational status: retired and disabled Travel in the last 8 weeks: None household members: children current occupational exposures/hazards: No Review of Systems Review of Systems Review of systems:: pertinent systems reviewed and negative unless documented below Meds Home Medications and Allergies Home Medications Medication Instructions Recorded Confirmed Type allopurinol 100 mg tablet 100 mg PO DAILY Gout 04/10/23 03/03/24 History bupropion HCl 100 mg tablet 100 mg PO DAILY Mood 04/10/23 03/03/24 History bupropion HCl 100 mg tablet 200 mg PO HS Mood 04/10/23 03/03/24 History carbidopa 25 mg-levodopa 100 mg 1 tab PO TID Parkinson's Disease 04/10/23 03/03/24 History tablet carvedilol 6.25 mg tablet 6.25 mg PO BID Heart Rhythm 04/10/23 03/03/24 History chlorthalidone 25 mg tablet 25 mg PO DAILY Fluid 04/10/23 03/03/24 History cholecalciferol (vitamin D3) 25 25 mcg PO BID Supplement 04/10/23 03/03/24 History mcg (1,000 unit) tablet clopidogrel 75 mg tablet 75 mg PO DAILY Antiplatelet 04/10/23 03/03/24 History donepezil 10 mg tablet 10 mg PO HS Memory 04/10/23 03/03/24 History dorzolamide 22.3 mg-timolol 6.8 1 drp Eye-Both BID Eye pressure 04/10/23 03/03/24 History mg/mL eye drops fluticasone propionate 50 1 spray intranasal DAILYP PRN 04/10/23 03/03/24 History mcg/actuation nasal Allergy Symptoms spray,suspension gabapentin 300 mg capsule 300 mg PO DIRECTED Neuropathy 04/10/23 03/03/24 History leflunomide 20 mg tablet 20 mg PO DAILY Rheumatoid Arthritis 04/10/23 03/03/24 History meclizine 25 mg tablet 25 mg PO TIDP PRN Vertigo 04/10/23 03/03/24 History memantine 10 mg tablet 10 mg PO BID Memory 04/10/23 03/03/24 History methimazole 5 mg tablet 5 mg PO Q8H Hyperthyroid 04/10/23 03/03/24 History montelukast 10 mg tablet 10 mg PO PM Allergy Symptoms 04/10/23 03/03/24 History potassium chloride 20 mEq 20 meq PO BID Supplement 04/10/23 03/03/24 History tablet,extended release(part/cryst) primidone 250 mg tablet 250 mg PO HS Tremors 04/10/23 03/03/24 History albuterol sulfate 90 mcg/actuation 2 puff inhalation Q4HP PRN 06/28/23 03/03/24 History aerosol inhaler Shortness Of Breath aspirin 81 mg tablet,delayed 81 mg PO DAILY Heart Health 06/28/23 03/03/24 History release cetirizine 10 mg tablet 10 mg PO DAILY Allergy Symptoms 06/28/23 03/03/24 History colchicine 0.6 mg capsule 0.6 mg PO DAILY gout 06/28/23 03/03/24 History (Mitigare) empagliflozin 25 mg tablet 25 mg PO DAILY Diabetes 06/28/23 03/03/24 History (Jardiance) hydrocodone 5 mg-acetaminophen 325 1 tab PO BID PRN pain 5 days #10 06/28/23 03/03/24 Rx mg tablet tabs rosuvastatin 20 mg tablet 20 mg PO HS Cholesterol 06/28/23 03/03/24 History ondansetron HCl 4 mg tablet 4 mg PO Q8H PRN nausea and 08/04/23 03/03/24 Rx vomiting 5 days #30 tabs ascorbic acid (vitamin C) 500 mg 500 mg PO DAILY 10/28/23 03/03/24 History tablet (Vitamin C) omeprazole 40 mg capsule,delayed 40 mg PO DAILY 10/28/23 03/03/24 History release prednisone 5 mg tablet 10 mg PO DAILY 12/22/23 03/03/24 History bumetanide 1 mg tablet 1 mg PO DAILY 03/03/24 03/03/24 History New Prescriptions to Start Prescriptions: Allergies Allergy/AdvReac Type Severity Reaction Status Date / Time prochlorperazine Allergy Intermediate HALLUCINATI Verified 12/22/23 10:55 [PROCHLORPERAZINE] ONS oxycodone [OXYCODONE] Allergy Unknown HALLUCINATI Verified 12/22/23 10:55 ONS ibuprofen [IBUPROFEN] AdvReac Unknown PT HAS Verified 12/22/23 10:55 RENAL FAILURE Exam Data for Last 24 hours Vital signs and Labs for Last 24 Hours: Temp Pulse Resp BP Pulse Ox O2 Del Method 98 F 64 17 144/61 H 100 Room Air 03/03/24 17:59 03/03/24 18:01 03/03/24 18:01 03/03/24 18:01 03/03/24 18:01 03/03/24 18:01 Laboratory Results - last 24 hr 03/03/24 16:17: WBC 7.2, RBC 4.05 L, Hgb 11.5 L, Hct 36.0 L, MCV 88.7, MCH 28.3, MCHC 32.0, RDW 17.5, Plt Count 458 H, MPV 8.5, Neut % (Auto) 68.2, Lymph % (Auto) 18.6, [place] % (Auto) 6.2, Eos % (Auto) 6.2, Baso % (Auto) 0.8, Neut # (Auto) 4.9, Lymph # (Auto) 1.3, [place] # (Auto) 0.4, Eos # (Auto) 0.5 H, Baso # (Auto) 0.1, D-Dimer 3.71 H, Sodium 127 L, Potassium 3.7, Chloride 87 L, Carbon Dioxide 28, Anion Gap 15.7 H, BUN 25 H, Creatinine 1.50 H, Estimated Creat Clear 43, Estimated GFR 34 L, Est GFR ( Amer) 41 L, Glucose 115 H, Calcium 9.4, Magnesium 1.5 L, Total Bilirubin 0.6, AST 40 H, ALT 13, Alkaline Phosphatase 119, Troponin I 0.01, NT-Pro-B Natriuret Pep 421, Total Protein 6.8, Albumin 3.9, Globulin 2.9, Albumin/Globulin Ratio 1.3 Temp Pulse Resp BP Pulse Ox O2 Del Method 98.3 F 100 H 16 140/71 97 Room Air 06/28/23 08:00 06/28/23 08:00 06/28/23 08:00 06/28/23 08:00 06/28/23 08:00 06/28/23 08:00 Laboratory Results - last 24 hr 06/27/23 21:45: WBC 7.6, RBC 4.97, Hgb 13.7, Hct 45.1, MCV 90.6, MCH 27.5, MCHC 30.3 L, RDW 14.6, Plt Count 217, MPV 8.8, Neut % (Auto) 51.8, Lymph % (Auto) 21.1, [place] % (Auto) 12.0 H, Eos % (Auto) 14.1 H, Baso % (Auto) 1.0, Neut # (Auto) 3.9, Lymph # (Auto) 1.6, [place] # (Auto) 0.9, Eos # (Auto) 1.1 H, Baso # (Auto) 0.1, ESR 107 H, Sodium 135 L, Potassium 3.9, Chloride 102, Carbon Dioxide 23, Anion Gap 13.9, BUN 20 H, Creatinine 1.40 H, Estimated Creat Clear 47, Estimated GFR 37 L, Est GFR ( Amer) 44 L, Glucose 98, Calcium 9.2, Total Bilirubin 0.5, AST 58 H, ALT 12, Alkaline Phosphatase 159 H, Total Protein 8.2, Albumin 4.1, Globulin 4.1 H, Albumin/Globulin Ratio 1.0 L I & O for Last 24 hours: Intake & Output 02/29/24 03/01/24 03/02/24 03/03/24 23:59 23:59 23:59 23:59 Intake Total 300 / 300 Balance 300 / 300 Weight 87.175 kg Intake & Output 06/25/23 06/26/23 06/27/23 06/28/23 11:59 11:59 11:59 11:59 Intake Total 540 / 540 Output Total 550 / 550 Balance - Weight 211 lb 9 oz Constitutional Constitutional: no acute distress, average body habitus and obese *Routine HEENT Exam Head: Present normocephalic Eye: Present EOMI and PERRL ENT: Present mucous membranes moist *Routine Neck Exam Neck: Present supple; Absent lymphadenopathy *Routine Respiratory Exam Respiratory: Present CTA bilaterally *Routine Cardiovascular Exam Cardiovascular: Present RRR and murmur *Routine Abdominal Exam Abdominal: Present soft and normoactive bowel sounds; Absent tenderness *Routine Rectal Exam Rectal:: deferred *Routine Genitalia Exam Genitalia:: deferred *Routine Extremities Exam Extremities: Present edema; Absent cyanosis, clubbing or full ROM Comments: Baseline edema 2+ noted below her knees bilaterally. s/p left knee surgery *Routine Skin Exam Skin: Present warm; Absent rash *Routine Neurological Exam Neurological: Present alert and oriented X3 H&P: Result Imaging and Cardiology EKG: Status: image reviewed by me, Preliminary report and final report CT scan - chest: Status: image reviewed by me, Preliminary report and final report Assessment and Plan *Assessment and plan (1) Acute hyponatremia: Status: Acute Category: Medical Code(s): E87.1 - Hypo-osmolality and hyponatremia (2) Syncope: Status: Acute Qualifiers: Syncope type: unspecified Qualified Code(s): R55 - Syncope and collapse Category: Medical Code(s): R55 - Syncope and collapse (3) Bilateral carotid artery disease: Status: Acute Qualifiers: Carotid artery disease type: stenosis Qualified Code(s): I65.23 - Occlusion and stenosis of bilateral carotid arteries Category: Medical Code(s): I77.9 - Disorder of arteries and arterioles, unspecified (4) CAD in [place] artery: Status: Acute Category: Medical Code(s): I25.10 - Atherosclerotic heart disease of [place] coronary artery without angina pectoris (5) HTN (hypertension), benign: Status: Acute Category: Medical Code(s): I10 - Essential (primary) hypertension (6) Diastolic dysfunction: Status: Chronic Category: Medical Code(s): I51.9 - Heart disease, unspecified (7) Knee pain: Problem Comment: s/p recent surgery Status: Acute Qualifiers: Chronicity: chronic Laterality: left Qualified Code(s): M25.562 - Pain in left knee; G89.29 - Other chronic pain Category: Medical Code(s): M25.569 - Pain in unspecified knee (8) CKD (chronic kidney disease): Status: Acute Qualifiers: Chronic kidney disease stage: stage 3 (moderate) Chronic kidney disease stage 3 subtype: stage 3a (GFR 45-59) Qualified Code(s): N18.31 - Chronic kidney disease, stage 3a Category: Medical Code(s): N18.9 - Chronic kidney disease, unspecified Plan 78-year-old female with PMHx CKD, HTN, HLD. carotid disease, PAD, Diastolic dysfunction, and recent left knee replacement, presented to ED today with multiples syncope. Patient alert and oriented referred that she had a prodrome with lightheadedness prior to passing out. Arriving stable initial work up include a d-dimer due to a recent surgery. D-dimer significantly elevated to the point of needing to get a CT PE which was performed. no pulmonary embolism or any acute cardiopulmonary abnormality. Labs remarkable for sodium of 127. Discussed findings with ED. agreed for admission. after being requested. Plan as follow: -Acute hyponatremia. Suspected poor intake close excessive diuresis Syncope. To rule out arrhythmia versus carotid disease History of carotid artery disease: Admit patient for continuous monitoring. Dispo MedSurg Cardiac telemetry continuously Fall precaution Started on hypernatremic 3% sodium at 52ml/hr Last CT of the neck reviewed with reported 70% stenosis of the arteries, managed medically Echocardiogram from 2 years ago showed normal function EF function Ultrasound and echocardiogram ordered Repeat labs in the morning. -CAD hypertension and diastolic dysfunction: Resume home medication Patient on Bumex and chlorthalidone Echo pending to assess diastolic function -Left knee pain status post replacement: Pain management May need physical therapy evaluation -CKD Condition seems to be stable Caution with nephrotoxic medications The rest of her chronic conditions reviewed. Patient with polypharmacy On Plavix for chronic anticoagulation. Protonix for GI bleed Full code
[2024-03-03 20:08] LABS: Troponin I 0.01 ng/ml (0.00-0.034)
--- NOTE | 2024-03-03 21:44 | PC.NURSE ---
Called pharmacy due to needing a correction in the MAR at this time.
[2024-03-03] MEDS: CARVEDILOL 6.25MG TABLET 6.25 MG PO (22:27)
[2024-03-03] MEDS: GABAPENTIN 300MG CAPSULE 300 MG PO (22:27)
[2024-03-03] MEDS: MEMANTINE 10MG TABLET 10 MG PO (22:27)
[2024-03-03] MEDS: SODIUM CHLORIDE 3 % 500 ML 52 ML IV (22:33)
[2024-03-03 22:57] LABS: Troponin I 0.02 ng/ml (0.00-0.034)
[2024-03-04] VITALS (9 sets, daily range): BP systolic 104–156; BP diastolic 49–84; PULSE 77–100; RESP 16–19; TEMP 36.4–36.8; O2SAT 93–100; BMI 35.4
[2024-03-04] MEDS: HEPARIN SODIUM 5,000 UNIT/ML VIAL 5000 UNIT SQ ×3 (01:30→19:56)
--- NOTE | 2024-03-04 03:32 | XR_ITS ---
PROCEDURE INFORMATION: Exam: XR Left Knee Exam date and time: 03/04/2024 3:44 AM Age: 78 years old Clinical indication: Swelling, leg or foot; Prior surgery; Surgery date: Post-operative (0-2 days); Surgery type: S/P replacemnt; Additional info: Knee pain S/P replacemnt. Syncope at home TECHNIQUE: Imaging protocol: Radiologic exam of the left knee. Views: 1 or 2 views. COMPARISON: CR XR KNEE LT 3V 04/10/2023 8:56 PM FINDINGS: Bones/joints: Left total knee arthroplasty without periprosthetic fracture or osteolysis. No acute fracture or malalignment. Small joint effusion with expected intra-articular emphysema. Soft tissues: Expected subcutaneous emphysema. IMPRESSION: 1. Left total knee arthroplasty without periprosthetic fracture or osteolysis. 2. No acute fracture or malalignment. 3. Small joint effusion.
[2024-03-04] MEDS: MORPHINE 4MG/ML SYRINGE 4 MG IV (03:39)
--- NOTE | 2024-03-04 04:28 | PC.NURSE ---
Pt is alert and oriented x4 and currently tolerating RA well. Pt has c/o moderate to severe pain in her left knee (due to replacement 2 weeks prior), ice and repositioning offered but were unsuccessful, EQ, CRITICAL CARE UNIT NURSE notified and new orders for morphine 4mg obtained and given per MAR. Pt Med rec finished per charge nurse. Pt has 2+ non-pitting bi lateral lower extremity edema, ankles elevated. Pt denies other needs and has had no other acute changes to note this shift.
[2024-03-04] MEDS: GABAPENTIN 300MG CAPSULE 300 MG PO ×5 (05:11→19:55)
[2024-03-04 07:39] LABS: Chloride 102 mmol/L (98-107)
[2024-03-04 07:40] LABS: Sodium 136 mmol/L (136-145)
[2024-03-04 07:42] LABS: Basophils # 0.1 K/mm3 (0-0.2); Basophils % 1.3 % (0.1-2.0); Blood Urea Nitrogen 20 mg/dl (7-17); Creatinine Clearance Estimated 51 mL/min (50-200); Eosinophils # 0.5 K/mm3 (0.0-0.4); Eosinophils % 7.7 % (0.1-12.0); Estimated Glomerular Filt Rate 40 ml/min (>60); GFR (African American) 48 ML/MIN (>60); Hematocrit 35.4 % (37.0-47.0); Hemoglobin 10.9 g/dL (12.2-16.2); Lymphocytes % 32.9 % (10-50); Mean Corpuscular HGB Conc 30.8 g/dL (31.8-35.4); Mean Corpuscular Volume 90.8 fl (81-99); Mean Platelet Volume 7.8 fl (7.4-10.4); Monocytes # 0.5 K/mm3 (0.1-1.0); Neutrophils % 50.1 % (37.0-80.0); Platelet Count 403 K/mm3 (142-424); Red Blood Count 3.89 M/mm3 (4.20-5.40)
[2024-03-04 07:43] LABS: Anion Gap 7.8 mEq/L (5-15); Calcium 8.9 mg/dl (8.4-10.2); Carbon Dioxide 29 mmol/L (22.0-30.0); Glucose 87 mg/dl (74-100)
[2024-03-04 07:50] LABS: Potassium 2.8 mmoL/L (3.5-5.1)
[2024-03-04] MEDS: HYDROCODONE/APAP 5/325 MG TABLET 1 TAB PO ×3 (08:04→19:57)
[2024-03-04 09:04] LABS: NT Pro Brain Natriuretic Pep. 327 pg/mL (0-450)
[2024-03-04] MEDS: POTASSIUM CHLORIDE 20MEQ TAB 20 MEQ PO ×2 (09:21→20:00)
[2024-03-04] MEDS: CARBIDOPA/LEVODOPA 25/100MG TABLET 1 EACH PO ×3 (09:21→20:00)
[2024-03-04] MEDS: CARVEDILOL 6.25MG TABLET 6.25 MG PO ×2 (09:22→20:00)
[2024-03-04] MEDS: ALLOPURINOL 100MG TABLET 100 MG PO (09:22)
[2024-03-04] MEDS: CLOPIDOGREL 75MG TAB 75 MG PO (09:22)
[2024-03-04] MEDS: ASPIRIN EC 81MG TABLET 81 MG PO (09:22)
[2024-03-04] MEDS: MEMANTINE 10MG TABLET 10 MG PO ×2 (09:23→20:02)
[2024-03-04] MEDS: TIMOLOL OP ×2 (09:24→20:02)
[2024-03-04] MEDS: DORZOLAMIDE OP ×2 (09:24→20:02)
[2024-03-04] MEDS: BUMETANIDE 1 MG TABLET PO (11:02)
[2024-03-04] MEDS: CHLORTHALIDONE 25MG TABLET 25 MG PO (11:02)
--- NOTE | 2024-03-04 11:27 | HMH.PHAINT1 ---
Pharmacy Intervention Comments: MEDICATION RECONCILIATION COMPLETED ON PATIENT USING EXTERNAL FILL HISTORY FROM PHARMACY AND GAIL REPORT. -MALINA BASS, CATHYD
--- NOTE | 2024-03-04 11:50 | EXP.PN ---
Subjective *Date: 03/04/24 *Time: 15:57 Interval history: seen at bedside, claudio BARBOSA, SOB, N/V, complains of leg pain at site of surgery Exam Data for Last 24 hours Vital signs and Labs for Last 24 Hours: Temp Pulse Resp BP Pulse Ox O2 Del Method 98.1 F 100 H 19 142/59 H 97 Room Air 03/04/24 08:00 03/04/24 08:09 03/04/24 08:00 03/04/24 08:00 03/04/24 08:00 03/04/24 09:00 Laboratory Results - last 24 hr 03/03/24 16:17: WBC 7.2, RBC 4.05 L, Hgb 11.5 L, Hct 36.0 L, MCV 88.7, MCH 28.3, MCHC 32.0, RDW 17.5, Plt Count 458 H, MPV 8.5, Neut % (Auto) 68.2, Lymph % (Auto) 18.6, [place] % (Auto) 6.2, Eos % (Auto) 6.2, Baso % (Auto) 0.8, Neut # (Auto) 4.9, Lymph # (Auto) 1.3, [place] # (Auto) 0.4, Eos # (Auto) 0.5 H, Baso # (Auto) 0.1, D-Dimer 3.71 H, Sodium 127 L, Potassium 3.7, Chloride 87 L, Carbon Dioxide 28, Anion Gap 15.7 H, BUN 25 H, Creatinine 1.50 H, Estimated Creat Clear 43, Estimated GFR 34 L, Est GFR ( Amer) 41 L, Glucose 115 H, Calcium 9.4, Magnesium 1.5 L, Total Bilirubin 0.6, AST 40 H, ALT 13, Alkaline Phosphatase 119, Troponin I 0.01, NT-Pro-B Natriuret Pep 421, Total Protein 6.8, Albumin 3.9, Globulin 2.9, Albumin/Globulin Ratio 1.3 03/03/24 19:30: Troponin I 0.01 03/03/24 22:30: Troponin I 0.02 03/04/24 06:30: WBC 6.0, RBC 3.89 L, Hgb 10.9 L, Hct 35.4 L, MCV 90.8, MCH 28.0, MCHC 30.8 L, RDW 18.0 H, Plt Count 403, MPV 7.8, Neut % (Auto) 50.1, Lymph % (Auto) 32.9, [place] % (Auto) 8.0, Eos % (Auto) 7.7, Baso % (Auto) 1.3, Neut # (Auto) 3.0, Lymph # (Auto) 2.0, [place] # (Auto) 0.5, Eos # (Auto) 0.5 H, Baso # (Auto) 0.1, Sodium 136, Potassium 2.8 L* D, Chloride 102, Carbon Dioxide 29, Anion Gap 7.8, BUN 20 H, Creatinine 1.30 H, Estimated Creat Clear 51, Estimated GFR 40 L, Est GFR ( Amer) 48 L, Glucose 87 D, Calcium 8.9, NT-Pro-B Natriuret Pep 327 I & O for Last 24 hours: Intake & Output 03/01/24 03/02/24 03/03/24 03/04/24 23:59 23:59 23:59 23:59 Intake Total 300 / 674 1113 / 1113 Output Total 275 / 275 400 / 400 Balance 25 / 399 713 / 713 Weight 87.175 kg 87.177 kg Constitutional Constitutional: no acute distress *Routine HEENT Exam Head: Present normocephalic Eye: Present EOMI and PERRL ENT: Present mucous membranes moist *Routine Neck Exam Neck: Present supple; Absent lymphadenopathy *Routine Respiratory Exam Respiratory: Present CTA bilaterally *Routine Cardiovascular Exam Cardiovascular: Present RRR *Routine Abdominal Exam Abdominal: Present soft and normoactive bowel sounds; Absent tenderness *Routine Extremities Exam Extremities: Present edema; Absent cyanosis or clubbing Comments: Left left appears more swollen than left *Routine Skin Exam Skin: Present warm; Absent rash *Routine Neurological Exam Neurological: Present alert and oriented X3 Assessment and Plan *Assessment and plan (1) Acute hyponatremia: Status: Acute Category: Medical Code(s): E87.1 - Hypo-osmolality and hyponatremia (2) Syncope: Status: Acute Qualifiers: Syncope type: unspecified Qualified Code(s): R55 - Syncope and collapse Category: Medical Code(s): R55 - Syncope and collapse (3) Bilateral carotid artery disease: Status: Acute Qualifiers: Carotid artery disease type: stenosis Qualified Code(s): I65.23 - Occlusion and stenosis of bilateral carotid arteries Category: Medical Code(s): I77.9 - Disorder of arteries and arterioles, unspecified (4) CAD in [place] artery: Status: Acute Category: Medical Code(s): I25.10 - Atherosclerotic heart disease of [place] coronary artery without angina pectoris (5) HTN (hypertension), benign: Status: Acute Category: Medical Code(s): I10 - Essential (primary) hypertension (6) Diastolic dysfunction: Status: Chronic Category: Medical Code(s): I51.9 - Heart disease, unspecified (7) Knee pain: Problem Comment: s/p recent surgery Status: Acute Qualifiers: Chronicity: chronic Laterality: left Qualified Code(s): M25.562 - Pain in left knee; G89.29 - Other chronic pain Category: Medical Code(s): M25.569 - Pain in unspecified knee (8) CKD (chronic kidney disease): Status: Acute Qualifiers: Chronic kidney disease stage: stage 3 (moderate) Chronic kidney disease stage 3 subtype: stage 3a (GFR 45-59) Qualified Code(s): N18.31 - Chronic kidney disease, stage 3a Category: Medical Code(s): N18.9 - Chronic kidney disease, unspecified Plan 78-year-old female with PMHx CKD, HTN, HLD. carotid disease, PAD, Diastolic dysfunction, and recent left knee replacement, presented to ED today with multiples syncope. Patient alert and oriented referred that she had a prodrome with lightheadedness prior to passing out. Arriving stable initial work up include a d-dimer due to a recent surgery. D-dimer significantly elevated to the point of needing to get a CT PE which was performed. no pulmonary embolism or any acute cardiopulmonary abnormality. Labs remarkable for sodium of 127. Discussed findings with ED. agreed for admission. after being requested. Plan as follow: -Acute hyponatremia. Suspected poor intake close excessive diuresis - improve Syncope. To rule out arrhythmia versus carotid disease History of carotid artery disease: Cardiac telemetry continuously Fall precaution DC IV fluids Last CT of the neck reviewed with reported 70% stenosis of the arteries, managed medically Echocardiogram from 2 years ago showed normal function EF function Ultrasound and echocardiogram ordered Repeat labs in the morning. hypokalemia - monitor and replace ok to resume bumex -CAD hypertension and diastolic dysfunction: Resume home medication Patient on Bumex and chlorthalidone Echo pending to assess diastolic function -Left knee pain status post replacement: Pain management May need physical therapy evaluation RLE swollen - RLE DVT US ordered, consult PT/OT -CKD Condition seems to be stable Caution with nephrotoxic medications The rest of her chronic conditions reviewed. Patient with polypharmacy On Plavix for chronic anticoagulation. Protonix for GI bleed Full code
[2024-03-04] MEDS: KCl 10mEq/100ml 100 ML 100 MEQ IV ×3 (16:17→21:14)
--- NOTE | 2024-03-04 16:37 | PC.NURSE ---
Pt has C/O discomfort to (L) knee this shift. Medicated per nov. Has ambulated to BR and walked to the end of the ramirez from her room. She tolerated well. She is currently receiving IV potassium and drinking coffee. Family has visited today. Call light within reach.
[2024-03-04] MEDS: PRIMIDONE 250MG TABLET 250 MG PO (20:00)
[2024-03-04] MEDS: ATORVASTATIN 40MG TABLET 40 MG PO (20:00)
[2024-03-04] MEDS: buPROPion HCL 100 MG TABLET 200 MG PO (20:01)
[2024-03-04] MEDS: DONEPEZIL 10MG TAB 10 MG PO (20:02)
[2024-03-05] VITALS (8 sets, daily range): BP systolic 121–162; BP diastolic 50–75; PULSE 70–110; RESP 16–18; TEMP 36.7–37.1; O2SAT 97–100; BMI 35.9
[2024-03-05] MEDS: HYDROCODONE/APAP 5/325 MG TABLET 1 TAB PO ×5 (00:21→20:16)
[2024-03-05] MEDS: HEPARIN SODIUM 5,000 UNIT/ML VIAL 5000 UNIT SQ ×3 (03:01→17:27)
--- NOTE | 2024-03-05 03:58 | PC.NURSE ---
P)t is alert and oriented x4 and currently tolerating RA well. Pt has c/o moderate to severe pain in her left knee and has been treated per MAR. Pt has no other complaints and has had no acute changes to note this shift thus far.
[2024-03-05] MEDS: GABAPENTIN 300MG CAPSULE 300 MG PO ×5 (05:47→20:16)
[2024-03-05 06:30] LABS: Basophils % 0.6 % (0.1-2.0); Eosinophils # 0.7 K/mm3 (0.0-0.4); Eosinophils % 10.1 % (0.1-12.0); Hematocrit 34.3 % (37.0-47.0); Hemoglobin 10.7 g/dL (12.2-16.2); Lymphocytes # 2.1 K/mm3 (0.7-4.5); Lymphocytes % 32.5 % (10-50); Mean Corpuscular Volume 90.3 fl (81-99); Mean Platelet Volume 7.8 fl (7.4-10.4); Monocytes # 0.5 K/mm3 (0.1-1.0); Monocytes % 8.1 % (1.7-9.3); Neutrophils # 3.1 K/mm3 (1.8-7.8); Neutrophils % 48.7 % (37.0-80.0); Platelet Count 396 K/mm3 (142-424); Red Cell Distribution Width 17.7 % (11.5-17.5); White Blood Count 6.4 K/mm3 (4.8-10.8)
[2024-03-05 06:56] LABS: Chloride 99 mmol/L (98-107); Potassium 3.1 mmoL/L (3.5-5.1); Sodium 131 mmol/L (136-145)
[2024-03-05 06:59] LABS: Anion Gap 6.1 mEq/L (5-15); Blood Urea Nitrogen 18 mg/dl (7-17); Calcium 9.2 mg/dl (8.4-10.2); Carbon Dioxide 29 mmol/L (22.0-30.0); Creatinine Clearance Estimated 61 mL/min (50-200); Estimated Glomerular Filt Rate 48 ml/min (>60); GFR (African American) 58 ML/MIN (>60); Glucose 89 mg/dl (74-100)
[2024-03-05] MEDS: CHLORTHALIDONE 25MG TABLET 25 MG PO (08:15)
[2024-03-05] MEDS: DORZOLAMIDE OP ×2 (08:15→20:17)
[2024-03-05] MEDS: TIMOLOL OP ×2 (08:15→20:17)
[2024-03-05] MEDS: CARVEDILOL 6.25MG TABLET 6.25 MG PO ×2 (08:16→20:17)
[2024-03-05] MEDS: ALLOPURINOL 100MG TABLET 100 MG PO (08:16)
[2024-03-05] MEDS: POTASSIUM CHLORIDE 20MEQ TAB 20 MEQ PO ×2 (08:16→20:17)
[2024-03-05] MEDS: BUMETANIDE 1 MG TABLET PO (08:16)
[2024-03-05] MEDS: CLOPIDOGREL 75MG TAB 75 MG PO (08:16)
[2024-03-05] MEDS: ASPIRIN EC 81MG TABLET 81 MG PO (08:16)
[2024-03-05] MEDS: CARBIDOPA/LEVODOPA 25/100MG TABLET 1 EACH PO ×3 (08:16→20:17)
[2024-03-05] MEDS: MEMANTINE 10MG TABLET 10 MG PO ×2 (08:16→20:16)
--- NOTE | 2024-03-05 08:36 | PC.NURSE ---
Respiratory notified to call in furniture sales consultant tech for venous doppler order
--- NOTE | 2024-03-05 08:37 | CA_ITS ---
FINAL REPORT TECHNIQUE: Compression cano scale and Doppler evaluation CLINICAL HISTORY: Patient had left knee replacement 2 weeks ago. Patient states that her legs are always swollen but LLE is more swollen than usual. HTN, HLD, COPD. Patient takes Plavix daily. Limited scan as patient is unable to move left knee and leg secondary to recent surgery. COMPARISON: None FINDINGS: Femoral and popliteal veins show normal compressibility and flow. Visualized portion of the calf veins are patent by Doppler exam. IMPRESSION: No evidence of left lower extremity deep venous thrombosis Reviewed, Interpreted and Dictated by Ibeth Schultz MD Transcribed by Greta Pulido Authenticated and [facility]
--- NOTE | 2024-03-05 11:42 | HMH.PTEV ---
Physical Therapy Evaluation Rehab PT IP Evaluation Start: 03/04/24 16:00 Freq: ONCE Status: Active Protocol: Document 03/05/24 11:22 PDESEROUX (Rec: 03/05/24 11:42 [email or web address] [id number]) Subjective/History History History Pt. is a 78 year old female who presents to 2nd floor [facility] Inpatient secondary to having multiple syncope episodes on Wednesday(03/03/24). Pt. reports having x3 syncope episodes back to back where she was out for 5 minutes for the initial two, but the third one was very short according to her aide. Pt. reports she's had an aide come to her house Wednesday-Wednesday for the past three years since her . Pt. reports she did not fall and hit her head during the syncope episodes per aide. However, pt. did report falling on Wednesday(02/27) secondary to her LLE knee giving out d/t recent S/P LLE TKA 2 weeks ago. Pt. reports having Home Health Physical Therapy, but states she is soon to be discharged and initiate Outpatient Physical Therapy at [facility]. Pt. reports she lives w/ her grandson in a 1-level home. Pt. reports she was ambulatory w/ FWW in her home IND., however, would require assistance w/ ambulation when she would leave the house. Pt. reports she owns a FWW, SPC, quad cane , W/C, shower chair, bed-side commode, and has a ramp to enter/exit home. PMH includes CKD, HTN, HLD, carotid disease , PAD, Diastolic dysfunction, S/P Lumbar and Thoracic fusions, S/P RUE shldr. RC Repair, and S/P LLE TKA. Subjective Subjective Pt. vocalizes having 6/10 LLE knee P! at rest that increases to a 10/10 w/ activity. Pt. reports she is having an Doppler Ultrasound on the LLE knee to rule out a DVT. New diagnosis of cancer in past 12 No months? Rehab PT IP Eval Objective Appearance Patient Behavior Appropriate,Cooperative Patient Orientation Person,Place,Time,Month, Situation Difficulty following instructions none Speech Pattern Clear,Appropriate,Coherent Ambulation Patient Able to Ambulate Yes Ambulation Observation IP General Gait Pattern Observation Wide Based Gait,Decrease Weight Bear (L),Decrease Stride Lngth (R) Ambulation Distance (feet) 15 Ambulation Assistive Device Rolling Walker Ambulation Ability Minimal x 1 (25% assist) Balance Ability to Arise Able, uses arms to help Sitting Balance Steady, safe Standing Balance Steady, wide stance Dynamic Sitting Balance Ability Good Dynamic Standing Balance Ability Good Transfers Bed Transfer Ability Minimal x 1 (25% assist) Sit to Stand Bed Transfer Ability Minimal x 1 (25% assist) Pain LLE Pain Intensity 6 ROM LLE PT ROM Status ABN Abnormal ROM Comment RLE>LLE secondary to recent S/ P LLE TKA MMT LLE PT MMT ABN Abnormal MMT Grade RLE >LLE secondary to recent S /P LLE TKA Rehab PT IP prob,goals,plan Problems Date of Evaluation: 03/05/24 PT IP Problems Bed Mobility,Transfers,Gait, Balance,Self care,Safety Rehab Potential Rehab Potential Good Equipment Needs Assistive Devices Rolling / Wheeled Walker Plan PT Intervention Plan Bed Mobility,Transfers,Gait, Balance,Self care,Safety, Therapeutic Exercise PT Plan Frequency BID Duration LOS Discharge Goals Bed Transfer Ability Contact Guard/Hand Hold Sit to Stand Chair Transfer Ability Contact Guard/Hand Hold Ambulation Assistive Device Rolling Walker Ambulation Distance (feet) 25 Discharge Plan PT Discharge Plan Pt will benefit from skilled PT while at [facility] to assist with functional mobility s/p L TKA 2 weeks ago. Once deemed medically stable by MD, pt is most appropriate to discharge home with assistance from family/aide and continue HHPT and transition to outpatient therapy when appropriate. Eval Complexity Eval Charge Codes 14367 - Low Complexity PHYSICIAN CERTIFICATION: I certify the specified therapy services for Yoko Jerez are required, authorized, and reviewed every 30 days.
--- NOTE | 2024-03-05 15:16 | PC.NURSE ---
Pt has been up ambulating in room to BR this shift. Tolerated well. Has had a BM x3. Voiding well. Appetite has been good. She has C/O discomfort to LLE. Medicated per nov. Call light within reach. Family at bedside.
--- NOTE | 2024-03-05 15:30 | EXP.PN ---
Subjective *Date: 03/05/24 *Time: 15:30 Interval history: seen at bedside, claudio BARBOSA, SOB, N/V, complains of leg pain at site of surgery, also complains of calf pain Exam Data for Last 24 hours Vital signs and Labs for Last 24 Hours: Temp Pulse Resp BP Pulse Ox O2 Del Method 98.5 F 90 18 162/75 H 98 Room Air 03/05/24 11:38 03/05/24 12:00 03/05/24 11:38 03/05/24 11:38 03/05/24 11:38 03/05/24 15:00 Laboratory Results - last 24 hr 03/05/24 06:10: WBC 6.4, RBC 3.80 L, Hgb 10.7 L, Hct 34.3 L, MCV 90.3, MCH 28.0, MCHC 31.0 L, RDW 17.7 H, Plt Count 396, MPV 7.8, Neut % (Auto) 48.7, Lymph % (Auto) 32.5, [place] % (Auto) 8.1, Eos % (Auto) 10.1, Baso % (Auto) 0.6, Neut # (Auto) 3.1, Lymph # (Auto) 2.1, [place] # (Auto) 0.5, Eos # (Auto) 0.7 H, Baso # (Auto) 0.0, Sodium 131 L, Potassium 3.1 L, Chloride 99, Carbon Dioxide 29, Anion Gap 6.1, BUN 18 H, Creatinine 1.10 H, Estimated Creat Clear 61, Estimated GFR 48 L, Est GFR ( Amer) 58 L D, Glucose 89, Calcium 9.2 I & O for Last 24 hours: Intake & Output 03/02/24 03/03/24 03/04/24 03/05/24 23:59 23:59 23:59 23:59 Intake Total 300 / 674 1885 / 2565 950 / 950 Output Total 275 / 275 1450 / 1450 1000 / 1000 Balance 25 / 399 435 / 1115 -50 / -50 Weight 87.175 kg 87.177 kg 88.621 kg Constitutional Constitutional: no acute distress *Routine HEENT Exam Head: Present normocephalic Eye: Present EOMI and PERRL ENT: Present mucous membranes moist *Routine Neck Exam Neck: Present supple; Absent lymphadenopathy *Routine Respiratory Exam Respiratory: Present CTA bilaterally *Routine Cardiovascular Exam Cardiovascular: Present RRR *Routine Abdominal Exam Abdominal: Present soft and normoactive bowel sounds; Absent tenderness *Routine Extremities Exam Extremities: Present edema; Absent cyanosis or clubbing Comments: Left left appears more swollen than left *Routine Skin Exam Skin: Present warm; Absent rash *Routine Neurological Exam Neurological: Present alert and oriented X3 Assessment and Plan *Assessment and plan (1) Acute hyponatremia: Status: Acute Category: Medical Code(s): E87.1 - Hypo-osmolality and hyponatremia (2) Syncope: Status: Acute Qualifiers: Syncope type: unspecified Qualified Code(s): R55 - Syncope and collapse Category: Medical Code(s): R55 - Syncope and collapse (3) Bilateral carotid artery disease: Status: Acute Qualifiers: Carotid artery disease type: stenosis Qualified Code(s): I65.23 - Occlusion and stenosis of bilateral carotid arteries Category: Medical Code(s): I77.9 - Disorder of arteries and arterioles, unspecified (4) CAD in [place] artery: Status: Acute Category: Medical Code(s): I25.10 - Atherosclerotic heart disease of [place] coronary artery without angina pectoris (5) HTN (hypertension), benign: Status: Acute Category: Medical Code(s): I10 - Essential (primary) hypertension (6) Diastolic dysfunction: Status: Chronic Category: Medical Code(s): I51.9 - Heart disease, unspecified (7) Knee pain: Problem Comment: s/p recent surgery Status: Acute Qualifiers: Chronicity: chronic Laterality: left Qualified Code(s): M25.562 - Pain in left knee; G89.29 - Other chronic pain Category: Medical Code(s): M25.569 - Pain in unspecified knee (8) CKD (chronic kidney disease): Status: Acute Qualifiers: Chronic kidney disease stage: stage 3 (moderate) Chronic kidney disease stage 3 subtype: stage 3a (GFR 45-59) Qualified Code(s): N18.31 - Chronic kidney disease, stage 3a Category: Medical Code(s): N18.9 - Chronic kidney disease, unspecified Plan 78-year-old female with PMHx CKD, HTN, HLD. carotid disease, PAD, Diastolic dysfunction, and recent left knee replacement, presented to ED today with multiples syncope. Patient alert and oriented referred that she had a prodrome with lightheadedness prior to passing out. Arriving stable initial work up include a d-dimer due to a recent surgery. D-dimer significantly elevated to the point of needing to get a CT PE which was performed. no pulmonary embolism or any acute cardiopulmonary abnormality. Labs remarkable for sodium of 127. Discussed findings with ED. agreed for admission. after being requested. Plan as follow: -Acute hyponatremia. Suspected poor intake close excessive diuresis - improved Syncope. To rule out arrhythmia versus carotid disease History of carotid artery disease: Cardiac telemetry continuously Fall precaution DC IV fluids Last CT of the neck reviewed with reported 70% stenosis of the arteries, managed medically Echocardiogram from 2 years ago showed normal function EF function Ultrasound and echocardiogram ordered Repeat labs in the morning. hypokalemia - monitor and replace ok to resume bumex -CAD hypertension and diastolic dysfunction: Resume home medication Patient on Bumex and chlorthalidone Echo pending to assess diastolic function -Left knee pain status post replacement: Pain management May need physical therapy evaluation RLE swollen - RLE DVT US ordered, consult PT/OT -CKD Condition seems to be stable Caution with nephrotoxic medications The rest of her chronic conditions reviewed. Patient with polypharmacy On Plavix for chronic anticoagulation. Protonix for GI bleed Full code Await leg doppler study to rule out DVT
[2024-03-05] MEDS: CALCIUM CARBONATE 500MG CHEWTAB 500 MG PO (16:14)
[2024-03-05] MEDS: PRIMIDONE 250MG TABLET 250 MG PO (20:16)
[2024-03-05] MEDS: ATORVASTATIN 40MG TABLET 40 MG PO (20:17)
[2024-03-05] MEDS: buPROPion HCL 100 MG TABLET 200 MG PO (20:17)
[2024-03-05] MEDS: DONEPEZIL 10MG TAB 10 MG PO (20:17)
[2024-03-06] VITALS (9 sets, daily range): BP systolic 116–167; BP diastolic 53–80; PULSE 73–100; RESP 16–18; TEMP 36.4–37.1; O2SAT 93–100; BMI 36.8; BMI 36.5
[2024-03-06] MEDS: HEPARIN SODIUM 5,000 UNIT/ML VIAL 5000 UNIT SQ ×3 (02:41→17:51)
[2024-03-06] MEDS: HYDROCODONE/APAP 5/325 MG TABLET 1 TAB PO ×4 (02:41→21:36)
--- NOTE | 2024-03-06 05:28 | PC.NURSE ---
Pt is alert and oriented. Complained of pain, treated per mar. Legs elevated on pillows. BLE edema noted. Bruising to R elbow, pt states this is where most of her soreness is. Purewick in place. Call light in reach.
[2024-03-06] MEDS: GABAPENTIN 300MG CAPSULE 300 MG PO ×6 (05:50→21:28)
[2024-03-06] MEDS: CALCIUM CARBONATE 500MG CHEWTAB 500 MG PO (06:01)
[2024-03-06 06:30] LABS: Chloride 99 mmol/L (98-107); Potassium 3.2 mmoL/L (3.5-5.1); Sodium 131 mmol/L (136-145)
[2024-03-06 06:33] LABS: Basophils % 0.5 % (0.1-2.0); Blood Urea Nitrogen 21 mg/dl (7-17); Creatinine Clearance Estimated 62 mL/min (50-200); Eosinophils # 0.5 K/mm3 (0.0-0.4); Eosinophils % 8.1 % (0.1-12.0); Estimated Glomerular Filt Rate 48 ml/min (>60); GFR (African American) 58 ML/MIN (>60); Hematocrit 32.4 % (37.0-47.0); Hemoglobin 10.1 g/dL (12.2-16.2); Lymphocytes # 1.9 K/mm3 (0.7-4.5); Lymphocytes % 33.5 % (10-50); Mean Corpuscular HGB Conc 31.2 g/dL (31.8-35.4); Mean Corpuscular Hemoglobin 28.3 pg (27.0-31.2); Mean Platelet Volume 7.5 fl (7.4-10.4); Monocytes # 0.6 K/mm3 (0.1-1.0); Monocytes % 10.1 % (1.7-9.3); Neutrophils # 2.7 K/mm3 (1.8-7.8); Neutrophils % 47.8 % (37.0-80.0); Platelet Count 377 K/mm3 (142-424); Red Blood Count 3.56 M/mm3 (4.20-5.40); Red Cell Distribution Width 17.7 % (11.5-17.5); White Blood Count 5.7 K/mm3 (4.8-10.8)
[2024-03-06 06:34] LABS: Anion Gap 6.2 mEq/L (5-15); Calcium 9.2 mg/dl (8.4-10.2); Carbon Dioxide 29 mmol/L (22.0-30.0); Glucose 87 mg/dl (74-100)
[2024-03-06] MEDS: ASPIRIN EC 81MG TABLET 81 MG PO (08:13)
[2024-03-06] MEDS: MEMANTINE 10MG TABLET 10 MG PO ×2 (08:13→21:28)
[2024-03-06] MEDS: CLOPIDOGREL 75MG TAB 75 MG PO (08:13)
[2024-03-06] MEDS: CARVEDILOL 6.25MG TABLET 6.25 MG PO ×2 (08:13→21:28)
[2024-03-06] MEDS: BUMETANIDE 1 MG TABLET PO (08:13)
[2024-03-06] MEDS: POTASSIUM CHLORIDE 20MEQ TAB 20 MEQ PO ×2 (08:13→21:29)
[2024-03-06] MEDS: ALLOPURINOL 100MG TABLET 100 MG PO (08:14)
[2024-03-06] MEDS: TIMOLOL OP ×2 (08:14→21:37)
[2024-03-06] MEDS: DORZOLAMIDE OP ×2 (08:14→21:37)
[2024-03-06] MEDS: CARBIDOPA/LEVODOPA 25/100MG TABLET 1 EACH PO ×3 (08:14→21:28)
[2024-03-06] MEDS: CHLORTHALIDONE 25MG TABLET 25 MG PO (08:15)
--- NOTE | 2024-03-06 09:33 | EXP.CARD.CON ---
History of Present Illness History of Present Illness Consult date: 03/06/24 Requesting physician: Julisa Quesada Consult reason: chest pain Chief complaint: syncope Additional 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:: 1. CAD A. LHC, 08/2022, HERIBERTO to proximal LAD. Hyperdynamic EF. LVEDP at 20 mmHg. Nonflow limiting left renal artery stenosis. 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 Hypertensive nephropathy. B. Echocardiogram, 09/08/2022, mild biatrial enlargement, normal LV size with mild concentric LVH. EF 55% with no regional WMA. Grade 1 DD. Mild RVE with normal contractility. Trace MR/TR. C. Lexiscan Myoview, 01/25/2023, no ischemia with EF 74%. 2. Lupus, chronic arthritis with significant immobility issues and frequent falls 3. Mild PAD venous insufficiency of the lower extremities A. BRITTNEE, 2018, slightly low ABIs on both sides. Low TBI's bilaterally suggesting small vessel disease. 4. Pulmonary hypertension, felt secondary to lupus A. High-resolution CT of the chest, 08/27/2022 multiple less than 5 mm nodules throughout both lungs. No significant enlargement of the central pulmonary arteries to suggest pulmonary artery hypertension. No bronchiectasis and no significant interstitial lung disease. 5. Recurrent syncope, 02/2023 A. CTA of the chest, 03/03/2024, likely normal study with no large central pulmonary artery filling defect. Questionable filling defects and subsegmental right lower lobe pulmonary arterial branches likely artifactual related to bolus timing as well as motion. B. Carotid ultrasound, 01/2023, DES[place] less than 50%, LICA greater than 70%. C. Neck CTA attempted 02/2023 but of no diagnostic value. 6. Recurrent hyponatremia 7. Intermittent hypokalemia 8. CKD, stage II-III A. Baseline creatinine about 1.1-1.3 with GFR around 48-58 9. GERD A. Modified barium swallow, 11/2022, unremarkable. History of present illness: This is a 78-year-old female with PMHx CKD, HTN, HLD. carotid disease, PAD, Diastolic dysfunction, and recent left knee replacement, presented to ED today with multiples syncope. Patient alert and oriented referred that she had a prodrome with lightheadedness prior to passing out. happened 3 times today, while finishing shower. No chest pain or shortness of breath. No increasing or worsening left lower extremity swelling since the surgery. No pain in that leg. She denies any pain at the moment. Denies any fevers chills or any other preceding symptoms. Other than feeling tired which she states is appropriate for the amount of sleep that she got she denies any other symptoms at the moment. Admitted for further managment The above per Getachew Bauer APRN for the hospitalist service. Events as noted above confirmed with the patient. CTA of the chest showed no evidence of significant pulmonary emboli. Troponins normal x 3. EKG, 03/03/2024, sinus rhythm, left atrial enlargement, anteroseptal myocardial infarction pattern of undetermined age. No significant change compared to tracings dating back to 2019. Patient does relate chest discomfort radiating to left arm and jaw after eating recently. She has had issues with painful swallowing in the past and was referred to GI for further evaluation. She does not recall ever having an EGD. [facility] Disclaimer: The information contained in this section may have been updated after the patient was seen, as this information can be updated by other users. 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 (Updated 03/04/24 @ 01:34 by Getachew Bauer APRN) Tinnitus SNHL (sensorineural hearing loss) Chronic eustachian tube dysfunction CAD in [place] artery Syncope Bilateral carotid artery disease Lymphedema Angina pectoris History of COVID-19 COPD (chronic obstructive pulmonary disease) Systemic lupus Hypothyroid Difficulty swallowing Unstable angina Cataract Renal disease PVD (peripheral vascular disease) Palpitations HTN (hypertension), benign Heart murmur HLD (hyperlipidemia) GERD (gastroesophageal reflux disease) DVT (deep venous thrombosis) Peripheral arterial disease Right carotid bruit Carotid bruit Edema Diastolic dysfunction HHD (hypertensive heart disease) Surgical History History of colonoscopy H/O tubal ligation H/O rotator cuff surgery History of back surgery Cataract extraction status, right eye Family History Other Alcoholism Anemia Cancer Coronary artery disease FHx: mental illness Heart attack Hyperlipidemia Hypertension Kidney disease Substance abuse Tuberculosis 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 (Updated 03/03/24 @ 18:06 by Clair Combs RN) Smoking Status: Never smoker alcohol intake: former substance use type: denies use current occupational status: retired and disabled Travel in the last 8 weeks: None household members: children current occupational exposures/hazards: No Review of Systems Review of Systems Review of systems:: pertinent systems reviewed and negative unless documented below *Cardiovascular Cardiovascular: Reports chest pain, Reports chest pain at rest and Reports dyspnea on exertion *Respiratory Respiratory: Denies cough and Reports dyspnea on exertion *Gastrointestinal Gastrointestinal: Reports dyspepsia Exam Data for Last 24 hours Vital signs and Labs for Last 24 Hours: Temp Pulse Resp BP Pulse Ox O2 Del Method 97.5 F L 73 18 126/58 L 100 Room Air 03/06/24 08:00 03/06/24 08:00 03/06/24 08:00 03/06/24 08:00 03/06/24 08:00 03/06/24 09:00 Laboratory Results - last 24 hr 03/06/24 05:35: WBC 5.7, RBC 3.56 L, Hgb 10.1 L, Hct 32.4 L, MCV 91.0, MCH 28.3, MCHC 31.2 L, RDW 17.7 H, Plt Count 377, MPV 7.5, Neut % (Auto) 47.8, Lymph % (Auto) 33.5, [place] % (Auto) 10.1 H, Eos % (Auto) 8.1, Baso % (Auto) 0.5, Neut # (Auto) 2.7, Lymph # (Auto) 1.9, [place] # (Auto) 0.6, Eos # (Auto) 0.5 H, Baso # (Auto) 0.0, Sodium 131 L, Potassium 3.2 L, Chloride 99, Carbon Dioxide 29, Anion Gap 6.2, BUN 21 H, Creatinine 1.10 H, Estimated Creat Clear 62, Estimated GFR 48 L, Est GFR ( Amer) 58 L, Glucose 87, Calcium 9.2 I & O for Last 24 hours: Intake & Output 03/03/24 03/04/24 03/05/24 03/06/24 11:59 11:59 11:59 11:59 Intake Total 1413 / 1413 1722 / 1722 940 / 940 Output Total 675 / 675 1450 / 1450 1550 / 1550 Balance 738 / 738 272 / 272 -610 / -610 Weight 192 lb 3.078 oz 195 lb 6 oz 198 lb 6.656 oz Constitutional Constitutional: no acute distress *Routine Respiratory Exam Respiratory: Present CTA bilaterally; Absent rales or rhonchi *Routine Cardiovascular Exam Cardiovascular: Present RRR *Routine Extremities Exam Extremities: Present edema *Routine Neurological Exam Neurological: Present alert, oriented X3 and CN II-XII intact Meds Home Medications and Allergies Home Medications Medication Instructions Recorded Confirmed Type allopurinol 100 mg tablet 100 mg PO DAILY 04/10/23 03/04/24 History bupropion HCl 100 mg tablet 100 mg PO DAILY 04/10/23 03/04/24 History bupropion HCl 100 mg tablet 200 mg PO HS 04/10/23 03/04/24 History carbidopa 25 mg-levodopa 100 mg 1 tab PO TID 04/10/23 03/04/24 History tablet carvedilol 6.25 mg tablet 6.25 mg PO BID 04/10/23 03/04/24 History chlorthalidone 25 mg tablet 25 mg PO DAILY 04/10/23 03/04/24 History cholecalciferol (vitamin D3) 25 25 mcg PO BID 04/10/23 03/04/24 History mcg (1,000 unit) tablet clopidogrel 75 mg tablet 75 mg PO DAILY 04/10/23 03/04/24 History donepezil 10 mg tablet 10 mg PO HS 04/10/23 03/04/24 History dorzolamide 22.3 mg-timolol 6.8 1 drp Eye-Both BID 04/10/23 03/04/24 History mg/mL eye drops fluticasone propionate 50 1 spray intranasal DAILYP PRN 04/10/23 03/04/24 History mcg/actuation nasal Allergy Symptoms spray,suspension gabapentin 300 mg capsule 300 mg PO 5XDAY Neuropathy 04/10/23 03/04/24 History meclizine 25 mg tablet 25 mg PO TIDP PRN Vertigo 04/10/23 03/04/24 History memantine 10 mg tablet 10 mg PO BID 04/10/23 03/04/24 History methimazole 5 mg tablet 5 mg PO TID 04/10/23 03/04/24 History montelukast 10 mg tablet 10 mg PO PM 04/10/23 03/04/24 History potassium chloride 20 mEq 20 meq PO BID 04/10/23 03/04/24 History tablet,extended release(part/cryst) primidone 250 mg tablet 250 mg PO HS 04/10/23 03/04/24 History albuterol sulfate 90 mcg/actuation 2 puff inhalation Q4HP PRN 06/28/23 03/04/24 History aerosol inhaler Shortness Of Breath aspirin 81 mg tablet,delayed 81 mg PO DAILY 06/28/23 03/04/24 History release cetirizine 10 mg tablet 10 mg PO DAILY 06/28/23 03/04/24 History colchicine 0.6 mg capsule 0.6 mg PO DAILY 06/28/23 03/03/24 History (Mitigare) empagliflozin 25 mg tablet 25 mg PO DAILY 06/28/23 03/04/24 History (Jardiance) rosuvastatin 20 mg tablet 20 mg PO HS 06/28/23 03/04/24 History ascorbic acid (vitamin C) 500 mg 500 mg PO DAILY 10/28/23 03/04/24 History tablet (Vitamin C) omeprazole 40 mg capsule,delayed 40 mg PO DAILY 10/28/23 03/04/24 History release prednisone 5 mg tablet 5 mg PO DIRECTED 12/22/23 03/04/24 History bumetanide 1 mg tablet 1 mg PO DAILY 03/03/24 03/04/24 History belimumab 200 mg/mL subcutaneous 200 mg SQ DIRECTED 03/04/24 03/04/24 History auto-injector (Benlysta) docusate sodium 100 mg capsule 100 mg PO BID 03/04/24 03/04/24 History hydrocodone 5 mg-acetaminophen 325 1 tab PO Q4HP PRN Moderate Pain 03/04/24 03/04/24 History mg tablet (Scale Score 5-6) lidocaine 5 % topical patch 1 - 2 patch transdermal DAILY 03/04/24 03/04/24 History New Prescriptions to Start Prescriptions: Allergies Allergy/AdvReac Type Severity Reaction Status Date / Time prochlorperazine Allergy Intermediate HALLUCINATI Verified 12/22/23 10:55 [PROCHLORPERAZINE] ONS oxycodone [OXYCODONE] Allergy Unknown HALLUCINATI Verified 12/22/23 10:55 ONS ibuprofen [IBUPROFEN] AdvReac Unknown PT HAS Verified 12/22/23 10:55 RENAL FAILURE Assessment and Plan *Assessment and plan (1) Syncope: Status: Acute Qualifiers: Syncope type: unspecified Qualified Code(s): R55 - Syncope and collapse Category: Medical Code(s): R55 - Syncope and collapse (2) Acute hyponatremia: Status: Acute Category: Medical Code(s): E87.1 - Hypo-osmolality and hyponatremia (3) CKD (chronic kidney disease): Status: Acute Qualifiers: Chronic kidney disease stage: stage 3 (moderate) Chronic kidney disease stage 3 subtype: stage 3a (GFR 45-59) Qualified Code(s): N18.31 - Chronic kidney disease, stage 3a Category: Medical Code(s): N18.9 - Chronic kidney disease, unspecified (4) CAD in [place] artery: Status: Acute Category: Medical Code(s): I25.10 - Atherosclerotic heart disease of [place] coronary artery without angina pectoris (5) Bilateral carotid artery disease: Status: Acute Qualifiers: Carotid artery disease type: stenosis Qualified Code(s): I65.23 - Occlusion and stenosis of bilateral carotid arteries Category: Medical Code(s): I77.9 - Disorder of arteries and arterioles, unspecified (6) Anemia, chronic disease: Status: Chronic Category: Medical Code(s): D63.8 - Anemia in other chronic diseases classified elsewhere (7) Lupus (systemic lupus erythematosus): Status: Acute Qualifiers: Systemic lupus erythematosus organ involvement: unspecified Systemic lupus erythematosus type: unspecified Qualified Code(s): M32.9 - Systemic lupus erythematosus, unspecified Category: Medical Code(s): M32.9 - Systemic lupus erythematosus, unspecified (8) Hypokalemia: Status: Acute Category: Medical Code(s): E87.6 - Hypokalemia Plan 1. Syncope, Patient states no recurrence since hospitalization. -Continue telemetry. -Echocardiogram pending -Likely multifactorial including electrolyte imbalance, acute on chronic kidney disease, mild anemia, recent knee surgery and polypharmacy for multiple disease processes. 2. Hyponatremia, improving -131 today 3. Hypokalemia, improving on potassium replacement -3.2 today 4. Lupus with chronic arthritis -Recent knee surgery -chronic steroid therapy -Jardiance 5. Coronary artery disease with prior coronary stenting -On aspirin, Plavix, coreg and statin therapy -relates recent chest pain but seems to occur after eating and improves with antacid therapy -troponins normal this admission with no acute EKG changes 6. Mild anemia -Hgb 10.1 7. CKD, stage II-III, stable 8. Lower extremity edema -Lower extremity venous Doppler negative for DVT -On chronic Bumex and chlorthalidone therapy 9. GERD -on PPI therapy 10. ?hyperthyroidism -on methimazole Echo looks good with normal EF and no significant valve disease. Discussed loop recorder placement. Pt agrees to proceed. Recommend lexiscan myoview due to high risk for recurrent CAD and recurrent syncope. Pt agrees. Will plan for tomorrow AM.
--- NOTE | 2024-03-06 09:48 | HMH.OTEV ---
OT Inpatient Evaluation Rehab OT IP Evaluation Start: 03/04/24 16:00 Freq: ONCE Status: Active Protocol: Document 03/06/24 09:37 KENYONFEDERICO (Rec: 03/06/24 09:47 VASHTI [id number]) Rehab OT IP Assessment Subjective History This is a 78-year-old female with PMHx CKD, HTN, HLD. carotid disease, PAD, Diastolic dysfunction, and recent left knee replacement, presented to ED today with multiples syncope. Patient alert and oriented referred that she had a prodrome with lightheadedness prior to passing out. happened 3 times today, while finishing shower. No chest pain or shortness of breath. No increasing or worsening left lower extremity swelling since the surgery. No pain in that leg. She denies any pain at the moment. Denies any fevers chills or any other preceding symptoms. Other than feeling tired which she states is appropriate for the amount of sleep that she got she denies any other symptoms at the moment. Admitted for further managment . Patient lives in 1 story home with 1STE. Sitter M-F 8- 2pm. Family in and out during the day to assist with patient if needed. Subjective I can get up. Patinet completed bed mobility task from supien->sit @ EOB with Min A. Patient completed sit->stand and fx'l mobility within the environement up to 25ft with usage of RW with SBA . Assisted Patient back to bed with Min A. LEft Patient upright in bed with needs met and call light within reach. Objective Patient Orientation Person,Place,Name,Age,Birthday ,Year Right Upper Extremity Gross ROM WFL Left Upper Extremity Gross ROM WFL Bed Mobility bed mobility - supine/sit Assist Level Contact Guard/Hand Hold Transfer Training Sit/Stand/Pivot Transfer Assist Level Supervision/Stand by Chair Transfer Ability Supervision/Stand by Rehab OT IP prob,goals,plan Problems Date of Evaluation: 03/06/24 OT IP Problems Bed Mobility,Transfers,Balance ,Self care,Safety Rehab Potential Rehab Potential Good Equipment Needs Assistive Devices Rolling / Wheeled Walker Plan OT intervention Plan Bed Mobility,Transfers,Balance ,Self care,Safety,Therapeutic Exercise OT Plan Frequency Daily Duration LOS Discharge Goals Bed Mobility Ability Independent Sit to Stand Chair Transfer Ability Independent Chair Transfer Ability Independent Chair Transfer Technique Sit to/from Ambulatory Chair Transfer Assistive Devices Rolling Walker Discharge Plan OT Discharge Plan Recommend Patient to continue skilled OT IP services at end of session. Recommend Patient to return home after medical d /c. Eval Complexity Eval Charge Codes 49616 - Low Complexity PHYSICIAN CERTIFICATION: I certify the specified therapy services for Yoko Jerez are required, authorized, and reviewed every 30 days.
[2024-03-06 10:47] LABS: Free Thyroxine Index 2.4 ug/dL (5.93-13.13); T4 (Thyroxine) 6.8 ug/dl (5.53-11.0); Triiodothryronine (T3) Uptake 35 % (23.5-40.5)
[2024-03-06 11:01] LABS: Thyroid Stimulating Hormone 2.93 uIU/mL (0.465-4.68)
--- NOTE | 2024-03-06 11:34 | CARE MANAGER ---
Patient is currently established with [facility]. She will return home with and attendant services via [facility]. Information sent to N. MAGALIE Coates
[2024-03-06 12:46] LABS: Magnesium 1.7 mg/dl (1.6-2.3)
[2024-03-06] MEDS: CEFAZOLIN SODIUM 1 GM in 0.9 % SODIUM CHLORIDE 50 ML IV (13:00)
[2024-03-06] MEDS: LIDOCAINE 2% W/EPI 1:100,000 20ML VIAL 20 ML SQ (13:10)
--- NOTE | 2024-03-06 13:58 | EXP.PN ---
Subjective *Date: 03/06/24 *Time: 13:58 Interval history: seen at bedside, no acute events overnight, denied CP, SOB, N/V Exam Data for Last 24 hours Vital signs and Labs for Last 24 Hours: Temp Pulse Resp BP Pulse Ox O2 Del Method 98.1 F 85 18 151/78 H 96 Room Air 03/06/24 13:30 03/06/24 13:30 03/06/24 13:30 03/06/24 13:30 03/06/24 13:30 03/06/24 13:30 Laboratory Results - last 24 hr 03/06/24 05:35: WBC 5.7, RBC 3.56 L, Hgb 10.1 L, Hct 32.4 L, MCV 91.0, MCH 28.3, MCHC 31.2 L, RDW 17.7 H, Plt Count 377, MPV 7.5, Neut % (Auto) 47.8, Lymph % (Auto) 33.5, [place] % (Auto) 10.1 H, Eos % (Auto) 8.1, Baso % (Auto) 0.5, Neut # (Auto) 2.7, Lymph # (Auto) 1.9, [place] # (Auto) 0.6, Eos # (Auto) 0.5 H, Baso # (Auto) 0.0, Sodium 131 L, Potassium 3.2 L, Chloride 99, Carbon Dioxide 29, Anion Gap 6.2, BUN 21 H, Creatinine 1.10 H, Estimated Creat Clear 62, Estimated GFR 48 L, Est GFR ( Amer) 58 L, Glucose 87, Calcium 9.2 03/06/24 09:35: Magnesium 1.7 D, TSH 2.93, Free T4 Index 2.4 L, Thyroxine (T4) 6.8, T3 Uptake 35 I & O for Last 24 hours: Intake & Output 03/03/24 03/04/24 03/05/24 03/06/24 23:59 23:59 23:59 23:59 Intake Total 300 / 674 1885 / 2565 1670 / 1890 760 / 760 Output Total 275 / 275 1450 / 1450 1200 / 1200 750 / 750 Balance 25 / 399 435 / 1115 470 / 690 10 / 10 Weight 87.175 kg 87.177 kg 88.621 kg 90 kg Constitutional Constitutional: no acute distress *Routine HEENT Exam Head: Present normocephalic Eye: Present EOMI and PERRL ENT: Present mucous membranes moist *Routine Neck Exam Neck: Present supple; Absent lymphadenopathy *Routine Respiratory Exam Respiratory: Present CTA bilaterally *Routine Cardiovascular Exam Cardiovascular: Present RRR *Routine Abdominal Exam Abdominal: Present soft and normoactive bowel sounds; Absent tenderness *Routine Extremities Exam Extremities: Present edema; Absent cyanosis or clubbing Comments: Left left appears more swollen than left *Routine Skin Exam Skin: Present warm; Absent rash *Routine Neurological Exam Neurological: Present alert and oriented X3 Assessment and Plan *Assessment and plan (1) Acute hyponatremia: Status: Acute Category: Medical Code(s): E87.1 - Hypo-osmolality and hyponatremia (2) Syncope: Status: Acute Qualifiers: Syncope type: unspecified Qualified Code(s): R55 - Syncope and collapse Category: Medical Code(s): R55 - Syncope and collapse (3) Bilateral carotid artery disease: Status: Acute Qualifiers: Carotid artery disease type: stenosis Qualified Code(s): I65.23 - Occlusion and stenosis of bilateral carotid arteries Category: Medical Code(s): I77.9 - Disorder of arteries and arterioles, unspecified (4) CAD in [place] artery: Status: Acute Category: Medical Code(s): I25.10 - Atherosclerotic heart disease of [place] coronary artery without angina pectoris (5) HTN (hypertension), benign: Status: Acute Category: Medical Code(s): I10 - Essential (primary) hypertension (6) Diastolic dysfunction: Status: Chronic Category: Medical Code(s): I51.9 - Heart disease, unspecified (7) Knee pain: Problem Comment: s/p recent surgery Status: Acute Qualifiers: Chronicity: chronic Laterality: left Qualified Code(s): M25.562 - Pain in left knee; G89.29 - Other chronic pain Category: Medical Code(s): M25.569 - Pain in unspecified knee (8) CKD (chronic kidney disease): Status: Acute Qualifiers: Chronic kidney disease stage: stage 3 (moderate) Chronic kidney disease stage 3 subtype: stage 3a (GFR 45-59) Qualified Code(s): N18.31 - Chronic kidney disease, stage 3a Category: Medical Code(s): N18.9 - Chronic kidney disease, unspecified Plan 78-year-old female with PMHx CKD, HTN, HLD. carotid disease, PAD, Diastolic dysfunction, and recent left knee replacement, presented to ED today with multiples syncope. Patient alert and oriented referred that she had a prodrome with lightheadedness prior to passing out. Arriving stable initial work up include a d-dimer due to a recent surgery. D-dimer significantly elevated to the point of needing to get a CT PE which was performed. no pulmonary embolism or any acute cardiopulmonary abnormality. Labs remarkable for sodium of 127. Discussed findings with ED. agreed for admission. after being requested. Plan as follow: -Acute hyponatremia. Suspected poor intake close excessive diuresis - improved Syncope. To rule out arrhythmia versus carotid disease History of carotid artery disease: Cardiac telemetry continuously Fall precaution DC IV fluids Last CT of the neck reviewed with reported 70% stenosis of the arteries, managed medically Echocardiogram from 2 years ago showed normal function EF function Ultrasound and echocardiogram ordered Repeat labs in the morning. cardiology consulted for recurring Syncope - Plan for loop recorder and Myoview tomorrow hypokalemia - monitor and replace ok to resume bumex -CAD hypertension and diastolic dysfunction: Resume home medication Patient on Bumex and chlorthalidone Echo pending to assess diastolic function -Left knee pain status post replacement: Pain management May need physical therapy evaluation RLE swollen - RLE DVT US ordered, consult PT/OT -CKD Condition seems to be stable Caution with nephrotoxic medications The rest of her chronic conditions reviewed. Patient with polypharmacy On Plavix for chronic anticoagulation. Protonix for GI bleed Full code L leg doppler study to rule out DVT completed - negative for DVT cardiology consulted for recurring Syncope - Plan for loop recorder and Myoview tomorrow
--- NOTE | 2024-03-06 14:04 | EXP.LOOP ---
[facility] Loop Recorder Date: 03/06/24 Time: 13:00 Procedure Performed:: Implantation of loop Indication:: Recurrent syncope Technique:: Patient was brought to the cardiac Computer Programming Manager. After informed consent obtained, 1% lidocaine with epinephrine was used to anesthetize the site along the left anterior aspect of the chest near the sternal border. Using the preformed scalpel, an incision was made and using the supplied preloaded apparatus, the loop recorder was placed subcutaneously without difficulty. Following the deployment of the loop recorder interrogation of the device was performed to ensure appropriate voltage was being detected. Once this was verified, Steri-Strips were placed over the incision and the patient was prepped to discharge home. Patient tolerated the procedure well with minimal discomfort. Impression:: Successful implantation of loop recorder Serial Number:: SABIAt-IQ EL plus ICM 5500 Model number DM 5500 Serial #[id number] Plan:: Routine postop care
[2024-03-06] MEDS: MAGNESIUM OXIDE 400MG TABLET 400 MG PO (14:53)
--- NOTE | 2024-03-06 17:43 | PC.NURSE ---
pt has done well this shift. medicated for left knee pain prn. vss. tolerated loop recorder placement well.
[2024-03-06] MEDS: ATORVASTATIN 40MG TABLET 40 MG PO (21:27)
[2024-03-06] MEDS: DONEPEZIL 10MG TAB 10 MG PO (21:28)
[2024-03-06] MEDS: buPROPion HCL 100 MG TABLET 200 MG PO (21:28)
[2024-03-06] MEDS: PRIMIDONE 250MG TABLET 250 MG PO (21:29)
--- NOTE | 2024-03-06 22:13 | CA_ITS ---
APPROVED REPORT EXAM: Comprehensive 2D, Doppler, and color-flow Echocardiogram Library Manager: Mar Mario CRT Ht: 5 ft 1 in Wt: 200lbs BSA: 1.89 BP: 162/75 mmHg Indications: Peripheral Edema, CAD, Hyperlipidemia, Hypertension/HDD, stents, PVD, PUL HTN 2D Dimensions LA Volume 38.00 mL LA Volume Index 19.70 mL/m2 (M/F) 16-34 M-Mode Dimensions RVDd 2.15 cm (0.9-2.6) LA Diam 3.16 cm (1.9-4.0) LVDd 3.69 cm (3.5-5.7) LVDs 2.08 cm (3.5-5.7) IVSd 1.37 cm (0.6-1.1) PWd 1.23 cm (0.6-1.1) EF (Teich) 75.60% FS 43.60% EDV (Teich) 57.80 mL ESV (Teich) 14.10 mL LV Diastology E Decel Time 253 (160-240 msec) E/A Ratio 0.94 MED A' 13.60 cm/s LAT A' 8.10 cm/s Aortic Valve AO Peak GR. 6.20 mmHg Mitral Valve MV A Velocity 116.0 (40-130 cm/s) E/A Ratio 0.94 Pulmonary Valve PV Peak Velocity 121.0 (50-150 cm/s) Tricuspid Valve TR P. Velocity 309.00 cm/s RAP Estimate 10.00 mmHg RVSP 48.30 mmHg Left Ventricle The left ventricle is normal size. The left ventricular systolic function is normal. The left ventricular ejection fraction is within the normal range. There is increased LV wall thickness. There is normal LV segmental wall motion. Grade 2 diastolic dysfunction is present. LVEF is 55%. Right Ventricle Right ventricle is moderately dilated. Right ventricle is mildly hypokinetic. Atria The left atrium size is normal. Right atrium is mildly dilated. There is no Doppler evidence of interatrial shunt. Aortic Valve The aortic valve is mildly thickened. There is no aortic valvular stenosis. Trace aortic regurgitation. Mitral Valve The mitral valve is normal in structure. No evidence of mitral valve stenosis. Trace mitral regurgitation. Tricuspid Valve The tricuspid valve leaflets are thin and pliable. Moderate tricuspid regurgitation. RVSP is 40-45 mmHg. Pulmonic Valve The pulmonary valve is normal in structure. Mild pulmonic regurgitation. Great Vessels The aortic root is normal in size. The ascending aorta is normal in size. IVC is normal in size and collapses >50% with inspiration. Pericardium There is no pericardial effusion. Other Information Study Quality: Fair Conclusion Normal LV systolic function. Moderate RV dilation with mild reduction in RV function. Moderate TR. Elevated RVSP 40-45 mmHg. Electronically signed by : Flora Murphy MD 03/08/2024 10:46:45
[2024-03-07] VITALS (19 sets, daily range): BP systolic 101–169; BP diastolic 47–91; PULSE 64–99; RESP 16–20; TEMP 36.3–37.3; O2SAT 93–100; BMI 37.5
--- NOTE | 2024-03-07 | CA_ITS ---
APPROVED REPORT Exam: Pharmacologic Technologist: Erin Griffin, Ht: 5 ft 2 in Wt: 188 lbs BSA: 1.86 m2 HR: 78 bpm BP: 151/66 mmHg Rhythm: NSR 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 Medications: Omeprazole,,,,, Lidocaine,,,,, Aspirin,,,,, Gabapentin,,,,, Vitamin D3,,,,, Allopurinol,,,,, Carvedilol,,,,, Flonase,,,,, Albuterol,,,,, CloPIdogrel,,,,, CHlorthalidone,,,,, Prednisone,,,,, Stress Test Details Test: LEXISCAN Reason for pharmacologic stress test: physical limitation. HR Resting HR: 81 bpm Max Heart Rate (APMHR): 144 bpm Max HR Achieved: 111 bpm Target HR (85% APMHR): 122 bpm % of APMHR: 77 Recovery HR: 87 bpm BP Resting BP: 151.0/66.0 mmHg Max BP: 151.0/66.0 mmHg Recovery BP: 122.0/58.0 mmHg ECG Resting ECG: SR Stress ECG: No significant ST changes Arrhythmia: PACs, PVCs Clinical Exercise duration: 04:03 min Highest Stage Achieved: Stress ECG Conclusion Symptoms: nausea, dyspnea Arrhythmias/Ectopy: PAC, PVC ST-T Changes: No significant ST changes Conclusion: EKG portion unremarkable due to Lexiscan infusion. Myoview images reported separately Test Summary REST 01:01 . . 81 . 151/ 66 . . Stage 1 . . . . . . . Myoview Injected Stage 1 01:00 . . 100 . . . . Stage 2 01:00 . . 99 . . . . Stage 3 01:00 . . 97 . 110/ 49 . . Stage 4 01:00 . . 91 . 103/ 49 . . Stage 4 01:03 . . 95 . 103/ 49 . Stop exercise at 04:03 RECOVERY 01:00 . . 97 . 101/ 46 . . RECOVERY 02:00 . . 99 . 108/ 50 . . RECOVERY 03:00 . . 91 . 98/ 52 . . RECOVERY 04:00 . . 91 . 98/ 52 . . RECOVERY 05:00 . . 87 . 123/ 53 . . RECOVERY 05:29 . . 92 . 122/ 58 . . Electronically signed by : Flora Murphy MD 03/07/2024 11:13:38
--- NOTE | 2024-03-07 00:51 | PC.NURSE ---
0007, [employer] Diana notified this RN of pt being confused, pt normally A&Ox4. Went in to assess patient, pt crying out loud, states where is my family, call my mom, why did they leave me here , this RN tried to reorient pt to where she was, pt ask this RN to call pt family, called PTN Junior (son), pt talked to son, son called daughter (Lashawn), pt calmed down after a few minutes of being reoriented to situation. Pt ask several questions about why she was here, answered questions to the best of my ability. Pt daughter arrived to hospital to check on patient, in room with her at this time, pt is resting in bed at this time.
[2024-03-07 01:27] LABS: Microscopic, Urine URINE MICROSCOPIC (MICROSCOPIC)
[2024-03-07 01:31] LABS: Appearance,Urine CLEAR (Clear); Bilirubin,Urine Negative (Negative); Blood, Urine Negative (Negative); Color,Urine YELLOW (Yellow); Glucose,Urine (UA) 2+ (Negative); Ketones,Urine Negative (Negative); Leukocyte Esterase,Urine Negative (Negative); Nitrate,Urine Negative (Negative); PH,Urine 7.5 (5.0-8.5); Protein,Urine Negative (Negative)
[2024-03-07 01:45] LABS: Bacteria,Urine Trace /lpf; WBC,Urine Occasional #/hpf (0-3)
[2024-03-07] MEDS: HYDROCODONE/APAP 5/325 MG TABLET 1 TAB PO ×4 (02:43→21:02)
[2024-03-07] MEDS: GABAPENTIN 300MG CAPSULE 300 MG PO ×5 (05:49→21:01)
--- NOTE | 2024-03-07 06:04 | PC.NURSE ---
Patient is alert and oriented x4. Patient has rested for most of the shift. Patient is on telemetry and her heart rate has been normal sinus rhythm. Her lung sounds are clear and her bowel sounds were very active upon assessment. She continues to have bilateral edema in her lower extremities; her left leg upon assessing at 0545 has slightly increased, non-pitting +3, and her other leg is non-pitting +2. Her incision from her past left knee replacement is clean, dry, and intact. Patient's purwick is in place. Patient stated her bottom was sore earlier this shift; a pillow was wedged underneath her left side to relieve pressure. Patient was satisfied. At 2130, she reported having left knee pain (rated level 9) and received Parker per MAR. Patient was able to sleep. At around 0240, she started reporting pain in her loop internal heart monitoring area in addition to her leg pain (rated level 9); she received Parker per MAR. Patient reported satisfaction. Patient had a delirious episode during this shift at around 0050; Yvonne MEJIAS reported she was yelling, was very tearful, and did not know where she was and no longer recognized any staff. Patient was reoriented and given reassurance that she was safe. Her daughter was notified and arrived shortly after to her bedside for comfort. A UA was taken. Patient's confusion resolved soon after and is currently oriented x4. Patient is NPO and is scheduled for a nuclear stress test today. Patient is resting at this time. Call light is within reach.
--- NOTE | 2024-03-07 07:00 | NM_ITS ---
APPROVED REPORT Exam: Nuclear Stress Test Indication: Chest pain, Syncope, HTN, High cholesterol, Family history, CAD Patient Location: Outpatient Stress Tech: Erin Walter NM Tech:Odette Ayala, ARRT, RT (R)(N) Ht: 5 ft 2 in Wt: 188 lbs Bra Size: C HR: 81 bpm BP: 151/66 mmHg BSA: 1.86 m2 Rhythm: NSR TID: 1.29 BMI: 34.3 History: Chest pain, Syncope, HTN, High cholesterol, Family history, CAD Procedure: Patient received 0.4 mg of intravenous Lexiscan, resting heart rate 81 bpm, resting blood pressure 151/66 mmHg, with Lexiscan maximum heart rate achieved was 111 bpm which is % of the maximum predicted heart rate and blood pressure was 151/66 mmHg. With Lexiscan, patient denied any complaint of chest pain. Cardiac Stress and Resting SPECT Images: Cardiac Stress and Resting SPECT images were obtained using technetium 99m Myoview 30.9 mCi stress and 10.21 mCi at rest. Resting and stress imaging in supine positions demonstrate no evidence of focal fixed or reversible perfusion defects. There is increased transient ischemic dilatation ratio (TID 1.29), suggestive of possible multivessel disease or balanced ischemia. Gated imaging demonstrates normal global and regional LV systolic function. LVEF is calculated at 68%. Conclusion: No evidence of focal fixed or reversible perfusion defects. There is increased transient ischemic dilatation ratio (TID 1.29), suggestive of possible multivessel disease or balanced ischemia. Gated imaging demonstrates normal global and regional LV systolic function. LVEF is calculated at 68%. Electronically signed by : Flora Murphy MD 03/07/2024 11:16:23
[2024-03-07 07:01] LABS: Basophils % 0.4 % (0.1-2.0); Eosinophils # 0.6 K/mm3 (0.0-0.4); Eosinophils % 9.6 % (0.1-12.0); Hematocrit 32.5 % (37.0-47.0); Hemoglobin 10.2 g/dL (12.2-16.2); Lymphocytes % 33.6 % (10-50); Mean Corpuscular HGB Conc 31.3 g/dL (31.8-35.4); Mean Corpuscular Hemoglobin 28.3 pg (27.0-31.2); Mean Corpuscular Volume 90.4 fl (81-99); Monocytes # 0.6 K/mm3 (0.1-1.0); Monocytes % 10.4 % (1.7-9.3); Neutrophils # 2.7 K/mm3 (1.8-7.8); Platelet Count 373 K/mm3 (142-424); Red Blood Count 3.59 M/mm3 (4.20-5.40); Red Cell Distribution Width 17.8 % (11.5-17.5); White Blood Count 5.8 K/mm3 (4.8-10.8)
[2024-03-07 07:16] LABS: Chloride 99 mmol/L (98-107); Potassium 3.5 mmoL/L (3.5-5.1); Sodium 132 mmol/L (136-145)
[2024-03-07 07:18] LABS: Alanine Aminotransferase 7 U/L (12-78); Aspartate Amino Transferase 31 U/L (14-36); Blood Urea Nitrogen 17 mg/dl (7-17); Creatinine Clearance Estimated 64 mL/min (50-200); Estimated Glomerular Filt Rate 48 ml/min (>60); GFR (African American) 58 ML/MIN (>60)
[2024-03-07 07:19] LABS: Albumin Level 3.1 g/dl (3.5-5.0); Albumin/Globulin Ratio 1.1 (1.1-1.8); Alkaline Phosphatase 121 U/L (38-126); Anion Gap 7.5 mEq/L (5-15); Bilirubin,Total 0.2 mg/dl (0.2-1.3); Calcium 9.2 mg/dl (8.4-10.2); Carbon Dioxide 29 mmol/L (22.0-30.0); Globulin 2.9 g/dL (1.3-3.2); Glucose 88 mg/dl (74-100)
[2024-03-07] MEDS: SODIUM CHLORIDE 0.9% 10ML SYR (RAD ONLY) 10 ML IV ×2 (08:41→08:42)
[2024-03-07] MEDS: ISOTOPE MYOVIEW (PER STUDY) 1 DOSE IV (08:41)
[2024-03-07] MEDS: REGADENOSON 0.4MG/5ML SYRINGE 0.4 MG IV (08:41)
[2024-03-07] MEDS: ASPIRIN EC 81MG TABLET 81 MG PO (10:11)
[2024-03-07] MEDS: CARBIDOPA/LEVODOPA 25/100MG TABLET 1 EACH PO ×3 (10:11→21:01)
[2024-03-07] MEDS: ALLOPURINOL 100MG TABLET 100 MG PO (10:11)
[2024-03-07] MEDS: CLOPIDOGREL 75MG TAB 75 MG PO (10:12)
[2024-03-07] MEDS: CARVEDILOL 6.25MG TABLET 6.25 MG PO ×2 (10:12→21:01)
[2024-03-07] MEDS: MEMANTINE 10MG TABLET 10 MG PO ×2 (10:13→21:02)
[2024-03-07] MEDS: POTASSIUM CHLORIDE 20MEQ TAB 20 MEQ PO ×2 (10:13→21:02)
[2024-03-07] MEDS: DORZOLAMIDE OP ×2 (10:14→21:01)
[2024-03-07] MEDS: TIMOLOL OP ×2 (10:14→21:01)
[2024-03-07] MEDS: HEPARIN SODIUM 5,000 UNIT/ML VIAL 5000 UNIT SQ ×2 (10:14→17:19)
[2024-03-07] MEDS: MAGNESIUM OXIDE 400MG TABLET 400 MG PO (10:24)
--- NOTE | 2024-03-07 11:27 | P.PN_ITS ---
Subjective Subjective Date: 03/07/24 Time: 11:27 Principal diagnosis: Syncope Interval history: 78-year-old black female in bed in no acute distress. Patient did undergo a Lexiscan Myoview this morning with results pertinent for transient ischemic dilatation at 1.29. Discussed need for left heart catheterization with patient and she agrees to proceed. Exam Data for Last 24 hours Vital signs and Labs for Last 24 Hours: Temp Pulse Resp BP Pulse Ox O2 Del Method 98.4 F 88 18 138/72 95 Room Air 03/07/24 04:00 03/07/24 04:00 03/07/24 04:00 03/07/24 04:00 03/07/24 04:00 03/07/24 08:00 Laboratory Results - last 24 hr 03/06/24 09:35: Magnesium 1.7 D 03/07/24 01:19: Urine Color Yellow, Urine Appearance Clear, Urine pH 7.5, Ur Specific [place] 1.010, Urine Protein Negative, Urine Glucose (UA) 2+, Urine Ketones Negative, Urine Blood Negative, Urine Nitrate Negative, Urine Bilirubin Negative, Urine Urobilinogen 1.0, Ur Leukocyte Esterase Negative, Urine WBC Occasional, Ur Squamous Epith Cells 5-10, Urine Bacteria Trace 03/07/24 05:45: WBC 5.8, RBC 3.59 L, Hgb 10.2 L, Hct 32.5 L, MCV 90.4, MCH 28.3, MCHC 31.3 L, RDW 17.8 H, Plt Count 373, MPV 8.0, Neut % (Auto) 46.0, Lymph % (Auto) 33.6, [place] % (Auto) 10.4 H, Eos % (Auto) 9.6, Baso % (Auto) 0.4, Neut # (Auto) 2.7, Lymph # (Auto) 2.0, [place] # (Auto) 0.6, Eos # (Auto) 0.6 H, Baso # (Auto) 0.0, Sodium 132 L, Potassium 3.5, Chloride 99, Carbon Dioxide 29, Anion Gap 7.5, BUN 17, Creatinine 1.10 H, Estimated Creat Clear 64, Estimated GFR 48 L , Est GFR ( Amer) 58 L, Glucose 88, Calcium 9.2, Total Bilirubin 0.2, AST 31, ALT 7 L, Alkaline Phosphatase 121, Total Protein 6.0 L, Albumin 3.1 L, Globulin 2.9, Albumin/Globulin Ratio 1.1 I & O for Last 24 hours: Intake & Output 03/04/24 03/05/24 03/06/24 03/07/24 11:59 11:59 11:59 11:59 Intake Total 1413 / 1413 1722 / 1722 1480 / 1480 1350 / 1350 Output Total 675 / 675 1450 / 1450 1550 / 1550 1050 / 1050 Balance 738 / 738 272 / 272 -70 / -70 300 / 300 Weight 192 lb 3.078 oz 195 lb 6 oz 198 lb 6.656 oz 204 lb 1.6 oz Constitutional Constitutional: no acute distress *Routine Respiratory Exam Respiratory: Present CTA bilaterally *Routine Cardiovascular Exam Cardiovascular: Present RRR Progress Note: A&P Assessment and plan (1) Acute hyponatremia: Status: Acute (2) Syncope: Status: Acute (3) Bilateral carotid artery disease: Status: Acute (4) CAD in [place] artery: Status: Acute (5) HTN (hypertension), benign: Status: Acute (6) Diastolic dysfunction: Status: Chronic (7) Knee pain: Problem details: s/p recent surgery Status: Acute (8) CKD (chronic kidney disease): Status: Acute (9) Abnormal cardiovascular stress test: Status: Acute Assessment and Plan Assessment and Plan for All Diagnoses:: 1. Syncope, Patient states no recurrence since hospitalization. -Continue telemetry. No arrhythmias noted -Echocardiogram pending -Likely multifactorial including electrolyte imbalance, acute on chronic kidney disease, mild anemia, recent knee surgery and polypharmacy for multiple disease processes. 2. Hyponatremia, improving -132 today 3. Hypokalemia, improving on potassium replacement -3.5 today 4. Lupus with chronic arthritis -Recent knee surgery -chronic steroid therapy -Jardiance 5. Coronary artery disease with prior coronary stenting -On aspirin, Plavix, coreg and statin therapy -relates recent chest pain but seems to occur after eating and improves with antacid therapy -troponins normal this admission with no acute EKG changes -Abnormal Lexiscan Myoview this admission with TID of 1.29 6. Mild anemia -Hgb 10.4 7. CKD, stage II-III, stable 8. Lower extremity edema -Lower extremity venous Doppler negative for DVT -On chronic Bumex and chlorthalidone therapy 9. GERD -on PPI therapy 10. ?hyperthyroidism -on methimazole Abnormal stress test, recommend proceed with elective left heart catheterization via femoral access Further recommendations to follow [facility] shows patent coronaries, hyperdynamic EF with normal LVEDP. OK for discharge home from cardiology standpoint. Home medication recommendations: Aspirin 81 mg daily Bumex 1 mg daily Carvedilol 6.25 mg twice daily Chlorthalidone 25 mg daily Plavix 75 mg daily Jardiance 25 mg daily Potassium chloride 20 mill equivalents twice daily Rosuvastatin 20 mg daily Mag oxide 400 mg daily Follow-up in our office in 1 week to look at loop recorder insertion site
--- NOTE | 2024-03-07 11:30 | IR_ITS ---
APPROVED REPORT Patient Location: Inpatient Senior User Experience Architect: LANDON Roy RT (R) PROCEDURES Left heart catheterization Left ventriculogram Selective coronary angiogram INDICATION Abnormal Myoview, Known coronary artery disease, Angina pectoris Informed consent was obtained prior to the procedure. COMPLICATIONS None Estimated Blood Loss: Less than10 mls TECHNIQUE One percent lidocaine was used to anesthetize the right groin. The right femoral artery was accessed via the Seldinger technique. A 4-Bengali sheath was placed in the right femoral artery. The JL-4 and JR-4 catheter was also used to perform left heart catheterization left ventriculogram and selective coronary angiogram. At the end of the procedure the patient was transferred to the post-op holding area in stable condition for arterial sheath removal. ANGIOGRAPHIC RESULTS The left main artery Normal The left anterior descending artery Has a stent in the proximal segment is widely patent with minimal in-stent restenosis and excellent proximal distal transitioning with remaining LAD widely patent The circumflex artery Large dominant with mild 10% luminal irregularities The right coronary artery Vestigial normal The BENITES ventriculogram reveals Hyperdynamic 80% The left ventricular end-diastolic pressure 10 mmHg IMPRESSION Widely patent coronary arteries Hyperdynamic ventricle Normal LVEDP PLAN 1. Medical management Electronically signed by : Pato Yo MD 03/07/2024 14:16:26
[2024-03-07] MEDS: diphenhydrAMINE 50MG/ML VIAL 50 MG IV (14:18)
[2024-03-07] MEDS: FENTANYL 100MCG/2ML VIAL 50 MCG IV (14:18)
[2024-03-07] MEDS: MIDAZOLAM HCL 1MG/1ML 5ML VIAL 1 MG IV (14:18)
[2024-03-07] MEDS: HEPARIN 1,000 UNITS/500ML NS (CATH LAB) 3000 UNIT IV (14:18)
[2024-03-07] MEDS: 0.9 % SODIUM CHLORIDE 500 ML 25 ML IV (14:18)
[2024-03-07] MEDS: LIDOCAINE 1% 10ML MDV 20 ML IJ (14:18)
[2024-03-07] MEDS: IOPAMIDOL-370 (76%);100ML BOTTLE 50 ML IV (14:37)
--- NOTE | 2024-03-07 16:52 | P.PN_ITS ---
Subjective *Date: 03/07/24 *Time: 19:15 Interval history: Complaining of leg swelling this morning. Initially declined her diuretic as she was hoping to go home. Due to abnormal stress test, decision made to proceed with left heart cath. Had nonocclusive disease. Cardiology recommends medical management. Patient feeling quite weak after cath. Will monitor overnight. Tolerating p.o. intake. Stable on room air. No chest pain or shortness of breath. Complaining of mild pain at site of loop recorder insertion. Medical Exam Vital signs and Labs for Last 24 Hours: Vital Signs Temp Pulse Pulse Resp BP Pulse Ox O2 Del Method 03/07/24 16:30 79 18 137/77 98 Room Air 03/07/24 16:00 86 20 169/65 H 97 Room Air 03/07/24 15:45 64 18 148/73 H 96 Room Air 03/07/24 15:30 75 16 124/65 98 Room Air 03/07/24 15:15 71 17 129/70 97 Room Air 03/07/24 15:00 Room Air 03/07/24 15:00 99.2 F 75 16 151/78 H 100 Room Air 03/07/24 12:49 Room Air 03/07/24 12:40 80 03/07/24 11:00 Room Air 03/07/24 08:00 97.3 F L 77 18 129/81 100 Room Air 03/07/24 08:00 Room Air 03/07/24 06:54 Room Air 03/07/24 05:00 Room Air 03/07/24 04:00 98.4 F 88 18 138/72 95 Room Air 03/07/24 04:00 79 03/07/24 02:53 Room Air 03/07/24 00:52 Room Air 03/07/24 00:00 83 03/07/24 00:00 99 H 18 115/56 L 100 Room Air 03/06/24 22:54 Room Air 03/06/24 21:00 Room Air 03/06/24 20:00 90 03/06/24 20:00 96 H 99 Room Air 03/06/24 20:00 98.7 F 96 H 16 131/53 L 99 Room Air 03/06/24 18:32 Room Air 03/06/24 17:00 Room Air Intake and Output 03/07/24 03/07/24 03/07/24 07:59 15:59 23:59 Intake Total 240 / 400 160 / 400 Output Total 0 / 0 0 / 0 Balance 240 / 400 160 / 400 0 / 400 Intake: Intake, Oral Amount 240 / 400 160 / 400 Output: Output, Urine Amount 0 / 0 0 / 0 Other: Number of Unmeasured Voids 1 1 Number of Bowel Movements 1 Weight 92.578 kg Patient Weight 03/07/24 23:59 Weight 92.578 kg Laboratory Results - last 24 hr 03/07/24 01:19: Urine Color Yellow, Urine Appearance Clear, Urine pH 7.5, Ur Specific [place] 1.010, Urine Protein Negative, Urine Glucose (UA) 2+, Urine Ketones Negative, Urine Blood Negative, Urine Nitrate Negative, Urine Bilirubin Negative, Urine Urobilinogen 1.0, Ur Leukocyte Esterase Negative, Urine WBC Occasional, Ur Squamous Epith Cells 5-10, Urine Bacteria Trace 03/07/24 05:45: WBC 5.8, RBC 3.59 L, Hgb 10.2 L, Hct 32.5 L, MCV 90.4, MCH 28.3, MCHC 31.3 L, RDW 17.8 H, Plt Count 373, MPV 8.0, Neut % (Auto) 46.0, Lymph % (Auto) 33.6, [place] % (Auto) 10.4 H, Eos % (Auto) 9.6, Baso % (Auto) 0.4, Neut # (Auto) 2.7, Lymph # (Auto) 2.0, [place] # (Auto) 0.6, Eos # (Auto) 0.6 H, Baso # (Auto) 0.0, Sodium 132 L, Potassium 3.5, Chloride 99, Carbon Dioxide 29, Anion Gap 7.5, BUN 17, Creatinine 1.10 H, Estimated Creat Clear 64, Estimated GFR 48 L , Est GFR ( Amer) 58 L, Glucose 88, Calcium 9.2, Total Bilirubin 0.2, AST 31, ALT 7 L, Alkaline Phosphatase 121, Total Protein 6.0 L, Albumin 3.1 L, Globulin 2.9, Albumin/Globulin Ratio 1.1 I & O for Labs for Last 24 Hours: Intake & Output 03/04/24 03/05/24 03/06/24 03/07/24 23:59 23:59 23:59 23:59 Intake Total 1885 / 2565 1670 / 1890 1870 / 2110 400 / 400 Output Total 1450 / 1450 1200 / 1200 1800 / 1800 0 / 0 Balance 435 / 1115 470 / 690 70 / 310 400 / 400 Weight 87.177 kg 88.621 kg 90 kg 92.578 kg Constitutional: Present no acute distress, obese, chronically ill appearing and cooperative Head: Present atraumatic and normocephalic ENT: Present normal exam Neck: Present normal inspection Respiratory: Present normal respiratory effort; Absent rhonchi, wheezes or crackles Cardiac: Present Reg Rate and Rhythm GI: Present soft and normal bowel sounds; Absent distention or tenderness Extremities: Present normal inspection, full ROM and edema (2+ to knees) Skin: Present intact; Absent erythema Neuro: Present Grossly Intact, alert, awake, oriented x 3 and moves all extremities Additional Findings:: Chest with mild tenderness at site of loop recorder insertion. Bandage clean dry and intact Assessment and Plan *Assessment and plan (1) Syncope: Status: Acute Qualifiers: Syncope type: unspecified Qualified Code(s): R55 - Syncope and collapse Category: Medical Code(s): R55 - Syncope and collapse (2) Acute hyponatremia: Status: Acute Category: Medical Code(s): E87.1 - Hypo-osmolality and hyponatremia (3) Bilateral carotid artery disease: Status: Acute Qualifiers: Carotid artery disease type: stenosis Qualified Code(s): I65.23 - Occlusion and stenosis of bilateral carotid arteries Category: Medical Code(s): I77.9 - Disorder of arteries and arterioles, unspecified (4) CAD in [place] artery: Status: Acute Category: Medical Code(s): I25.10 - Atherosclerotic heart disease of [place] coronary artery without angina pectoris (5) HTN (hypertension), benign: Status: Acute Category: Medical Code(s): I10 - Essential (primary) hypertension (6) Diastolic dysfunction: Status: Chronic Category: Medical Code(s): I51.9 - Heart disease, unspecified (7) Knee pain: Problem Comment: s/p recent surgery Status: Acute Qualifiers: Chronicity: chronic Laterality: left Qualified Code(s): M25.562 - Pain in left knee; G89.29 - Other chronic pain Category: Medical Code(s): M25.569 - Pain in unspecified knee (8) CKD (chronic kidney disease): Status: Acute Qualifiers: Chronic kidney disease stage: stage 3 (moderate) Chronic kidney disease stage 3 subtype: stage 3a (GFR 45-59) Qualified Code(s): N18.31 - Chronic kidney disease, stage 3a Category: Medical Code(s): N18.9 - Chronic kidney disease, unspecified Plan 78-year-old female with PMHx CKD, HTN, HLD. carotid disease, PAD, Diastolic dysfunction, and recent left knee replacement, presented to ED today with multiples syncope. Patient alert and oriented referred that she had a prodrome with lightheadedness prior to passing out. Arriving stable initial work up include a d-dimer due to a recent surgery. D-dimer significantly elevated to the point of needing to get a CT PE which was performed. no pulmonary embolism or any acute cardiopulmonary abnormality. Labs remarkable for sodium of 127. Discu ssed findings with ED. agreed for admission. Doing better since admission. Taken for stress test today, abnormal with transient ischemic findings. Plan for left heart cath. Continues to require patient management. Problems addressed as follows: Syncope CAD Abnormal stress test -Discussed case with cardiology, left heart cath performed today. Patient had nonocclusive disease. Recommend continued med management. -Loop recorder placed yesterday. Site clean and dry -Continue to monitor on telemetry. No arrhythmias noted per my review -Echo obtained, formal read still pending. Hyponatremia hypokalemia -Improving, sodium up to 132. Repeat CBC, CMP, magnesium ordered for the morning. -Potassium stable at 3.5. -Will consider sodium supplementation pending sodium level in the morning. Lupus with chronic arthritis -Recent knee surgery, still having some pain. Continue hydrocodone as needed for pain from loop recorder and her knee. -chronic steroid therapy CAD -Taken for heart cath today. See plan above. -Continue Jardiance 25 mg daily, carvedilol 6.25 mg twice daily, chlorthalidone 25 mg daily, aspirin and Plavix for dual antiplatelet therapy. Bumex 1 mg daily, and Crestor 20 mg daily. Mild anemia -Hgb 10.4, in the setting of chronic disease. Therapy working with patient daily. Will return home with home health PT and OT at discharge CKD - Condition seems to be stable, BUN 17, creatinine 1.1 today. Heparinized and Training Program Manager Protonix for GI prophylaxis Full code Cardiac diet
[2024-03-07] MEDS: CHLORTHALIDONE 25MG TABLET 25 MG PO (17:18)
[2024-03-07] MEDS: BUMETANIDE 1 MG TABLET PO (17:19)
--- NOTE | 2024-03-07 18:03 | PC.NURSE ---
A&Ox4, Lung sounds clear bilaterally. Pulses 2+ throughout, edema noted to BLE. Pt ambulating with walker to and from bathroom with assistance of 1. Pt c/o knee pain twice this shift and was medicated per NOV. Pt has had caregiver/family at bedside to visit this shift. Pt tolerated left heart cath well and has no complaints at this time.
--- NOTE | 2024-03-07 19:44 | PC.NURSE ---
Spoke with patient and daughter about ambulating to the restroom, pt stated she will not be getting up through the night, the purewick will remain in place due to the lasix she is receiving, its too much of a hassle . Educated patient on importance of getting up, answered all questions. Purewick is to used throughout night per pt and family.
[2024-03-07] MEDS: ATORVASTATIN 40MG TABLET 40 MG PO (21:00)
[2024-03-07] MEDS: buPROPion HCL 100 MG TABLET 200 MG PO (21:01)
[2024-03-07] MEDS: DONEPEZIL 10MG TAB 10 MG PO (21:01)
[2024-03-07] MEDS: PRIMIDONE 250MG TABLET 250 MG PO (21:02)
[2024-03-08] VITALS: PULSE 71
[2024-03-08 00:07] VITALS: BP 107/56
[2024-03-08] MEDS: HEPARIN SODIUM 5,000 UNIT/ML VIAL 5000 UNIT SQ ×2 (01:36→09:36)
[2024-03-08] MEDS: HYDROCODONE/APAP 5/325 MG TABLET 1 TAB PO ×3 (01:45→09:35)
--- NOTE | 2024-03-08 03:58 | PC.NURSE ---
This RN was notified of pt crying in excruciating pain by Allen MEJIAS, entered room, pt states her ankles are in pain, cramping in her toes, she cant get it to stop. This RN manually rubbed patient foot and toes, applied ice pack to try to relax foot and stop cramping. Pt stated she was still in pain. Mariah MEJIAS notified Juancarlos IGLESIAS, new orders received, pt refused new order due to the way it makes her feel. Pt stated her foot and toes were feeling better now and she wanted to rest.
[2024-03-08 04:00] VITALS: BP 144/89; PULSE 89; PULSE 90; RESP 18; TEMP 36.5; O2SAT 99; BMI 35.8
[2024-03-08] MEDS: GABAPENTIN 300MG CAPSULE 300 MG PO ×2 (05:03→09:35)
--- NOTE | 2024-03-08 05:57 | PC.NURSE ---
Patient is alert and oriented x4. Patient had a heart cath procedure yesterday and post-angio vitals were finished up during this shift. Patient did not have any acute changes during the post-angio assessment. Her cath site is in her right femoral. Patient's site has been checked periodically after post-angio assessment throughout the shift; her dressing has remained clean, dry, and intact with no bleeding or any drainage at this time. Patient has not reported any pain at the site and no temperature changes were noticed. Her left knee incision from her left knee replacement (weeks prior) is wrapped with ann banding. Banding has remained dry and intact through the whole shift. She has been saline-locked this shift. Patient has remained normal sinus rhythm on telemetry and her lung sounds were clear. Her bowel sounds were active in all four quadrants. She has significant pitting edema in her bilateral lower extremities. Patient had complained of a mild headache at the beginning of the shift, but has been relieved with pain medication. Patient stated that it could've pertained to allergies and noted sinus pressure. Patient has been receiving heparin shots and has reported intermittent soreness in her abdomen from the injections. After completion of post-angio vitals at 2200, patient's blood pressure started to drop during the night while she was resting. Patient wanted datascope to stay in place for a while as a comfort measure. Her blood pressure was checked periodically and findings were verbalized to patient. Patient's blood pressure from 0400 is 144/89 (MAP of 107). Datascope is no longer in place. Patient was encouraged to remove her purewick tonight and ambulate to the bathroom; however, patient refused this and claimed she needed it after receiving bumex from dayshift and claimed it would be too much of a hassle without it at night. Purewick is in in place. 900mL of urine was emptied out by me during this shift. Patient has complained of pain throughout the shift in her left knee. She received Lennox at around 2100 and 0145 for her knee pain. At around 0330, she started complaining of excruitiating pain in her left leg and it radiated down to her toes. Patient was very tearful and was yelling out. She described it as shocking to her. A foot massage and ice pack were offered to the patient; she did not report any change or relief. Juancarlos IGLESIAS was paged and patient received a new order for morphine. However, patient refused it because it makes her feel really bad. Ice pack is in place at this time and patient's left foot is covered due to request. Another dose of Lennox was given to patient at around 0515; she is sleeping at this time.
--- NOTE | 2024-03-08 06:48 | PC.NURSE ---
Patient's femoral site dressing was checked at this time. It is clean, dry, and intact with no bleeding or drainage at this time. Patient is very pleasant this morning and is listening to music. Patient was asked about having any current pain; patient denied having pain at this time.
[2024-03-08 06:49] LABS: Basophils % 0.7 % (0.1-2.0); Eosinophils # 0.5 K/mm3 (0.0-0.4); Eosinophils % 10.2 % (0.1-12.0); Hematocrit 33.9 % (37.0-47.0); Hemoglobin 10.4 g/dL (12.2-16.2); Lymphocytes # 1.8 K/mm3 (0.7-4.5); Lymphocytes % 36.4 % (10-50); Mean Corpuscular HGB Conc 30.6 g/dL (31.8-35.4); Mean Corpuscular Hemoglobin 27.9 pg (27.0-31.2); Mean Corpuscular Volume 91.2 fl (81-99); Mean Platelet Volume 7.7 fl (7.4-10.4); Monocytes # 0.5 K/mm3 (0.1-1.0); Monocytes % 10.3 % (1.7-9.3); Neutrophils # 2.1 K/mm3 (1.8-7.8); Neutrophils % 42.5 % (37.0-80.0); Platelet Count 366 K/mm3 (142-424); Red Blood Count 3.72 M/mm3 (4.20-5.40); Red Cell Distribution Width 17.7 % (11.5-17.5)
[2024-03-08 06:58] LABS: Chloride 97 mmol/L (98-107); Potassium 3.7 mmoL/L (3.5-5.1); Sodium 130 mmol/L (136-145)
[2024-03-08 07:00] LABS: Alanine Aminotransferase 9 U/L (12-78); Aspartate Amino Transferase 39 U/L (14-36); Blood Urea Nitrogen 16 mg/dl (7-17); Creatinine Clearance Estimated 61 mL/min (50-200); Estimated Glomerular Filt Rate 48 ml/min (>60); GFR (African American) 58 ML/MIN (>60)
[2024-03-08 07:01] LABS: Albumin Level 3.4 g/dl (3.5-5.0); Albumin/Globulin Ratio 1.2 (1.1-1.8); Alkaline Phosphatase 120 U/L (38-126); Anion Gap 7.7 mEq/L (5-15); Bilirubin,Total 0.3 mg/dl (0.2-1.3); Calcium 9.2 mg/dl (8.4-10.2); Carbon Dioxide 29 mmol/L (22.0-30.0); Globulin 2.9 g/dL (1.3-3.2); Glucose 87 mg/dl (74-100); Magnesium 1.7 mg/dl (1.6-2.3); Total Protein,Serum 6.3 g/dl (6.3-8.2)
--- OUTSIDE RECORDS SUMMARY | 2024-03-08 07:11 | XMS_ITS | Continuity of Care Document ---
Author Name Unknown Organization [facility] Address [address] [facility] [address] [place] [address] Phone Care Team Providers Care Biometrics Consultant Name Role Phone Jaimee Rowe OD Unavailable Unavailab le Advance Directives Directive Yes / No Effective Date File Name No Information Encounters Encounter Description Practice Location Reason(s) For Visit Diagnoses Date Provider Providers Copied on Encounter [address] [place] [address], [address] [facility] [address], [place], [place], [id number], [place] tel:[phone] [place] No Information 2 Jae Hermosillo. [address] [facility], [facility] [address], [place], [address], . Family History Family Member Type Diagnosis Age At Onset No Information Payers Payer name Insurance type Covered republican ID Authoriza tion(s) No Information 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 Type Description Quantity Date Captured Comments Sex Female Smoking Status No Information Chief Complaint And Reason For Visit No Information Reason For Referral Reason For Referral No Information History Of Present Illness Encounter Date Complaint History Of Prese nt Illness No Information Functional Status Date Functional Assessmen t No Information Instructions Date Instruction Additional Infor mation No Information Assessments Type Assessment Date No Information Patient Care Teams Name Effective Dates (start - stop) Status Members No Information
--- OUTSIDE RECORDS SUMMARY | 2024-03-08 07:11 | XMS_ITS | Clinical Summary ---
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 Name Role Phone Jerry MEJIAS, Marilou Tejeda Unavailable Conditions or Problems Problem Name Problem Code Onset Date Status Entry Date Provider Comment Standard Description Annotate Kidney disease, chronic, stage II 467290659 (SNOMED CT) 03/06 Active 03/06 Bobo Vizcarra MD Chronic kidney disease stage 2 UTI, recurrent 015570308 (SNOMED CT) 03/06 Active 03/06 Bobo Vizcarra MD Recurrent urinary tract infection DIARRHEA, CHRONIC 368922568 (SNOMED CT) 06/17 Active 06/17 Bobo Vizcarra MD Chronic diarrhea SYSTEMIC LUPUS ERYTHEMATOSU S 41614496 (SNOMED CT) 06/17 Active 06/17 Bobo Vizcarra MD Systemic lupus erythematosus IMMUNOCOMPRO MISED 731088525 (SNOMED CT) 06/17 Active 06/17 Bobo Vizcarra MD Immunodeficienc y disorder RHEUMATOID ARTHRITIS 09969443 (SNOMED CT) 06/17 Active 06/17 Bobo Vizcarra MD Rheumatoid arthritis C. Difficile colitis, recurrent 87493059 (SNOMED CT) 03/05 Active 03/05 Martine Damir Enterocolitis DIARRHEA, CHRONIC 446466518 (SNOMED CT) 06/17 Resolved 06/17 Martine Damir Chronic diarrhea LEUKOPENIA 65334674 (SNOMED CT) 06/17 Resolved 06/17 Martine Damir Leukopenia RHEUMATOID ARTHRITIS 12550775 (SNOMED CT) 06/17 Resolved 06/17 Martine Reich Rheumatoid arthritis THROMBOCYTOP ENIA 460298832 (SNOMED CT) 06/17 Resolved 06/17 Martine Reich Thrombocytopeni c disorder SYSTEMIC LUPUS ERYTHEMATOSU S 12205084 (SNOMED CT) 06/17 Resolved 06/17 Martine Reich Systemic lupus erythematosus HEPATITIS 873463522 (SNOMED CT) 06/17 Resolved 06/17 Martine Reich Inflammatory disease of liver ANEMIA 098471258 (SNOMED CT) 06/17 Resolved 06/17 Martine Reich Anemia IMMUNOCOMPRO MISED 536400222 (SNOMED CT) 06/17 Resolved 06/17 Martine Reich Immunodeficienc y disorder SEPSIS SYNDROME A41.9 (ICD-10-CM ) 06/17 Resolved 06/17 Martine Reich Sepsis, unspecified organism THRUSH 32427181 (SNOMED CT) Resolved Martine Reich Candidiasis THRUSH 26539911 (SNOMED CT) Removed Jaskaran Estrada MD Candidiasis RHEUMATOID ARTHRITIS 06720898 (SNOMED CT) 06/17 Removed 06/17 Marilou Edwards RN Rheumatoid arthritis ANEMIA 921459703 (SNOMED CT) 06/17 Removed 06/17 Marilou Edwards RN Anemia THROMBOCYTOP ENIA 814313340 (SNOMED CT) 06/17 Removed 06/17 Marilou Edwards RN Thrombocytopeni c disorder LEUKOPENIA 48865470 (SNOMED CT) 06/17 Removed 06/17 Marilou Edwards RN Leukopenia SYSTEMIC LUPUS ERYTHEMATOSU S 65945738 (SNOMED CT) 06/17 Removed 06/17 Marilou Edwards RN Systemic lupus erythematosus DIARRHEA, CHRONIC 601658898 (SNOMED CT) 06/17 Removed 06/17 Marilou Edwards RN Chronic diarrhea IMMUNOCOMPRO MISED 642197716 (SNOMED CT) 06/17 Removed 06/17 Marilou Edwards RN Immunodeficienc y disorder HEPATITIS 546268303 (SNOMED CT) 06/17 Removed 06/17 Marilou Edwards RN Inflammatory disease of liver SEPSIS SYNDROME A41.9 (ICD-10-CM ) 06/17 Removed 06/17 Marilou Edwards RN Sepsis, unspecified organism Medications Medication Instructions Start Date Stop Date Generic Name ND Provider PREDNISONE 20 MG TABS twice a day prednisone 42131618753 Yasmine Paigeruperto LEFLUNOMIDE 20 MG TABS leflunomide 48360752382 Odette Gibbs KLOR-CON 20 MEQ PACK potassium chloride 37716860428 Odette [place] ZOLPIDEM TARTRATE 10 MG TABS zolpidem 56510645799 Odette [place] DORZOLAMIDE HCL-TIMOLOL MAL 2-0.5 % SOLN dorzolamide-timol ol 71052630704 Odette [place] LISINOPRIL-HYDROC HLOROTHIAZIDE 10-12.5 MG TABS lisinopril-hydroc hlorothiazide 01905071565 Odette Gibbs IMODIUM A-D TABLET IMODIUM A-D TABLET Odetteodalys [place] DIGOXIN 125 MCG TABS digoxin 13082149130 Odette Felix BUPROPION HCL 75 MG TABS bupropion hcl 62508614653 Odette [place] OMEPRAZOLE 20 MG TBEC omeprazole 79819813145 Odette Felix DIAZEPAM 5 MG TABS diazepam 52588737875 Odette [place] SIMVASTATIN 20 MG TABS simvastatin 97814355076 Odette Felix MECLIZINE HCL 25 MG TABS meclizine 25105461336 Odette [place] IMURAN 50 MG TABS azathioprine 17642584887 Odette [place] LATANOPROST 0.005 % SOLN latanoprost 53449422600 Odette [place] DEPAKOTE 500 MG TBEC divalproex 58064791480 Odette [place] PRIMIDONE 250 MG TABS primidone 39444745259 Odette [place] TRAMADOL HCL 50 MG TABS tramadol 22987406005 Odette [place] CYCLOBENZAPRINE HCL 5 MG TABS cyclobenzaprine 28300808324 Odette [place] MITIGARE 0.6 MG CAPS colchicine 21825052480 Emil [place] METOCLOPRAMIDE HCL 10 MG TABS metoclopramide hcl 57574618037 [place] CARBIDOPA-LEVODOP A 25-100 MG TABS carbidopa-levod op a 70726026577 Emil Elena BUMETANIDE 1 MG TABS bumetanide 75969038702 [place] METHIMAZOLE 5 MG TABS methimazole 99128510160 Emil Elena BUPROPION HCL 100 MG TABS bupropion hcl 42892380083 [place]il [place] CHLORTHALIDONE 25 MG TABS chlorthalidone 73922173261 [place] PREDNISONE 5 MG TABS 03/19 prednisone 50383142854 Emil Elena DONEPEZIL HCL 10 MG TABS donepezil 07623144056 [place] CITALOPRAM HYDROBROMIDE 10 MG TABS citalopram 69418307295 [place] AZELASTINE HCL 0.1 % SOLN azelastine 21319285327 Emil Elena MONTELUKAST SODIUM 10 MG TABS montelukast 74526339644 Travi s Elena GABAPENTIN 300 MG CAPS gabapentin 17729039003 Emil Elena POTASSIUM CHLORIDE JONATHAN ER 20 MEQ CR-TABS potassium chloride 98912924574 [place] TRAVOPROST (VALENTIN FREE) 0.004 % SOLN travoprost 83023215091 [place] CARVEDILOL 12.5 MG TABS carvedilol 85067782759 [place] IMODIUM A-D TABS 03/06 LOPERAMIDE HCL TABS 03429218934 Jaskaran Estrada MD COLESTID 1 GM TABS COLESTIPOL HCL 12073469315 Jaskaran Estrada MD DOXYCYCLINE HYCLATE 100 MG CAPS DOXYCYCLINE HYCLATE 63216740414 Jaskaran Estrada MD FLAGYL 500 MG ORAL TABLET METRONIDAZOLE 89514560615 Jaskaran Estrada MD LEVAQUIN 500 MG ORAL TABLET Take 1 tablet by mouth daily LEVOFLOXACIN 78303425431 Jaskaran Estrada MD FLAGYL 500 MG ORAL TABLET Take one (1) tablet by mouth three times a day METRONIDAZOLE 51758870928 Jaskaran Estrada MD DOXYCYCLINE HYCLATE 100 MG CAPS Take one (1) tablet by mouth twice a day DOXYCYCLINE HYCLATE 48547811098 Jaskaran Estrada MD DEPAKOTE 500 MG TBEC 12/27 DIVALPROEX SODIUM 59143543751 Rachna Myers RN OMEPRAZOLE 20 MG TBEC 03/06 OMEPRAZOLE 73724271867 Rachna Myers RN CYCLOBENZAPRINE HCL 5 MG TABS 0 03/06 CYCLOBENZAPRINE HCL 19848518461 Rachna Myers RN DIAZEPAM 5 MG TABS 0 03/06 DIAZEPAM 87575553537 Rachna Myers RN DIGOXIN 125 MCG TABS 03/06 DIGOXIN 84517874333 Rachna Myers RN TRAMADOL HCL 50 MG TABS 0 03/06 TRAMADOL HCL 34240726511 Rachna Myers RN SIMVASTATIN 20 MG TABS 0 03/06 SIMVASTATIN 26189669518 Rachna Myers RN DORZOLAMIDE HCL-TIMOLOL MAL 2-0.5 % SOLN 03/06 DORZOLAMIDE HCL-TIMOLOL MAL 25619168264 Rachna Myers RN LISINOPRIL-HYDROC HLOROTHIAZIDE 10-12.5 MG TABS 0 03/06 LISINOPRIL-HYDROC HLOROTHIAZIDE 88593047088 Rachna Myers RN LATANOPROST 0.005 % SOLN 03/06 LATANOPROST 37029837897 Rachna Myers RN COLESTID 1 GM TABS COLESTIPOL HCL 78743785639 Rachna Myers RN DOXYCYCLINE HYCLATE 100 MG CAPS 0 12/19 DOXYCYCLINE HYCLATE 53193018319 Rachna Myers RN FLAGYL 500 MG ORAL TABLET METRONIDAZOLE 57492523471 Rachna Myers RN PRIMIDONE 250 MG TABS 11/16 PRIMIDONE 95864555605 Rachna Myers RN BUPROPION HCL 75 MG TABS 03/06 BUPROPION HCL 14661318635 Rachna Myers RN KLOR-CON 20 MEQ PACK 03/06 POTASSIUM CHLORIDE 47509503784 Rachna Myers RN ZOLPIDEM TARTRATE 10 MG TABS 03/06 ZOLPIDEM TARTRATE 53751252216 Rachna Myers RN MECLIZINE HCL 25 MG TABS 03/06 MECLIZINE HCL 21532135625 Rachna Myers RN LEFLUNOMIDE 20 MG TABS 03/06 LEFLUNOMIDE 88079277947 Rachna Myers RN IMURAN 50 MG TABS 03/06 AZATHIOPRINE 55023248556 Rachna Myers RN LEVAQUIN 500 MG ORAL TABLET Take 1 tablet by mouth daily 0 12/19 LEVOFLOXACIN 57941871122 [facility] FLAGYL 500 MG ORAL TABLET Take one (1) tablet by mouth three times a day METRONIDAZOLE 03129210546 [facility] DOXYCYCLINE HYCLATE 100 MG CAPS Take one (1) tablet by mouth twice a day 12/19 DOXYCYCLINE HYCLATE 51377237934 [facility] Medications Administered No information available. Allergies, Adverse Reactions, Alerts Allergy Name Reaction Description Start Date Severity Statu s Provider PERCOCET Critical Active [facility] COMPAZINE Critical Active Archana August Results Date Name Value Unit Range Flag Description Lab Report: CBC w Auto Diff BASOPHIL % 0.2 % 0.0-1.0 N Basophils/ 100 leukocytes in Blood by Manual count % EOS AUTO 0.9 % 0.0-3.0 N Eosinophil s/100 leukocytes in Blood by Automated count MONOCYTE BF 6.3 % 0.0-12.0 N monocyte s as percent of body fluid leukocytes LYMPHS % 21.9 % 24.0-44.0 L Lymphocyte s/100 leukocytes in Blood by Automated count PMN % 70.7 % 41.0-71.0 N Neutrophils /100 leukocytes in Blood by Automated count BASOABSOLMAN 0.01 K/MCL {Cells}/ uL 0.00-0.20 N basophils, absolute, manual EOS ABSLT 0.05 10*3/uL 0.10-0.30 L Eosinophi ls [#/volume] in Blood MONOCYTABMAN 0.34 K/MCL {Cells}/ uL 0.00-1.00 N monocytes, absolute, manual LYMPHSABSMAN 1.18 K/MCL {Cells}/ uL 0.60-4.80 N lymphocytes, absolute, manual ABS NEUTROPH 3.82 10*3/uL 1.50-8.30 N Neutro phils [#/volume] in Blood PLATELETS 339 10*3/mm3 150-450 N Platelets [#/volume] in Blood by Automated count RDW_ 15.0 11.3-14.5 H RDW, no uni ts MCHC 32.5 G/DL 32.0-36.0 N MCHC [Mass/ volume] by Automated count MCH 27.2 pg 27.0-31.0 N MCH [Entiti c mass] by Automated count MCV 83.7 fL 80.0-99.0 N MCV [Entiti c volume] by Automated count HCT 34.5 % 34.5-44.0 N Hematocrit [Volume Fraction] of Blood by Automated count HGB 11.2 g/dL 11.5-15.5 L Hemoglobin [Mass/volume] in Blood RBC 4.12 M/MCL 10*6/mm3 3.89-5.14 N Erythro cytes [#/volume] in Blood by Automated count WBC 5.40 10*3/mm3 3.50-10.80 N Leukocyte s [#/volume] in Blood by Automated count Lab Report: ESR (Sed Rate) ESR 44 mm/h 0-30 H Erythrocyte sedimentation rate by Westergren method Lab Report: Comprehensive Me tabolic Panel ANIONGAP 12 mmol/L 3-11 H anion gap, s norma GFRC 100 mL/min/1 .73m2 Glomerular Filtration Rate Calculation ALBUMIN 3.2 g/dL 3.4-4.8 L Albumin [Mass/volume] in Serum or Plasma PROTEIN, TOT 6.1 g/dL 6.4-8.3 L Protein [Mass/volume] in Serum or Plasma BILI TOTAL 0.5 mg/dL 0.3-1.2 N Bilirubin. total [Mass/volume] in Serum or Plasma SGPT (ALT) 50 U/L 7-40 H Alanine aminotransferase [Enzymatic activity/volume] in Serum or Plasma SGOT (AST) 48 U/L 8-33 H Aspartate aminotransferase [Enzymatic activity/volume] in Serum or Plasma ALK PHOS 106 U/L 25-100 H Alkaline telma sphatase [Enzymatic activity/volume] in Blood CALCIUM 8.7 mg/dL 8.7-10.4 N Calcium [Moles/volume] in Serum or Plasma CO2 28 mmol/L 20-31 N Carbon dioxid e, total [Moles/volume] in Venous blood CHLORIDE 98 mmol/L 98-107 N Chloride [Moles/volume] in Serum or Plasma POTASSIUM 3.4 mmol/L 3.4-5.4 N Potassium [Moles/volume] in Serum or Plasma SODIUM 138 mmol/L 136-145 N Sodium [Moles/volume] in Serum or Plasma CREATININE 0.7 mg/dL 0.6-1.3 N Creatinine [Mass/volume] in Serum or Plasma BUN 12 mg/dL 6-20 N Urea nitrogen [Mass/volume] in Serum or Plasma GLUCOSE SER 86 mg/dL 70-100 N Glucose [Mass/volume] in Serum or Plasma Lab Report: C-Reactive Prote in CRPCARDRISK 170.600 mg/L 0.000-10.0 H C reac tive protein [Mass/volume] in Serum or Plasma Lab Report: CLOSTRIDIUM DIFF ICILE TOXIN, PCR C DIFFIC TOX Not Detected Not Detect Clostridioides difficile toxin A+B [Presence] in Stool by Immunoassay Office Visit: 3 SMOK STATUS 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 MEDS REVIEW Done Documenta tion of current medications (procedure) Plan of Care Type Date Detail Pending order C-Diff PCR Pending order C-Diff Toxin A a nd B EIA Pending order CMP Pending order CBC with Differe ntial Pending order Sedimentation Ra te (ESR) Pending order C- reactive prot ein Procedures Code Procedure Name Date Entry Date CPT-cdpcr C-Diff PCR CPT-43951 C-Diff Toxin A and B EIA 202 10/26/16 CPT-58227 Flu Vaccine CPT-79071 CMP CPT-79249 CBC with Differential CPT-12484 Sedimentation Rate (ESR) 201 10/30/00 CPT-55909 C- reactive protein Vital Signs Date Name Value Unit Description BMI (Body Mass Index) 27.01 kg/m2 Bod y Mass Index (Ratio) Body Temperature 96.9 [degF] temperat ure E&M BP Diastolic 76 mm[Hg] blood pressu re, diastolic BP Systolic 142 mm[Hg] blood pressur e, systolic Heart Rate 74 /min pulse rate Height 64 [in_us] height E&M Respiratory Rate 16 /min respirat ory rate E&M Weight Measured 157.4 [lb_av] weight E& M Immunizations No information available. Advance Directives Directive Description Start Date ADVANCED DIRECTIVES ESTABLISHED
[2024-03-08 08:00] VITALS: BP 119/54; PULSE 87; RESP 18; TEMP 36.9; O2SAT 98
--- NOTE | 2024-03-08 08:19 | EXP.DC.SUM ---
General Admission date:: 03/03/24 Discharge date: 03/08/24 HPI HPI HPI: This is a 78-year-old female with PMHx CKD, HTN, HLD. carotid disease, PAD, Diastolic dysfunction, and recent left knee replacement, presented to ED today with multiples syncope. Patient alert and oriented referred that she had a prodrome with lightheadedness prior to passing out. happened 3 times today, while finishing shower. No chest pain or shortness of breath. No increasing or worsening left lower extremity swelling since the surgery. No pain in that leg. She denies any pain at the moment. Denies any fevers chills or any other preceding symptoms. Other than feeling tired which she states is appropriate for the amount of sleep that she got she denies any other symptoms at the moment. Admitted for further managment Hospital Course Hospital Course Hospital Course: 78-year-old female with PMHx CKD, HTN, HLD. carotid disease, PAD, Diastolic dysfunction, and recent left knee replacement, presented to ED today with multiples syncope. Patient alert and oriented referred that she had a prodrome with lightheadedness prior to passing out. Arriving stable initial work up include a d-dimer due to a recent surgery. D-dimer significantly elevated to the point of needing to get a CT PE which was performed. no pulmonary embolism or any acute cardiopulmonary abnormality. Labs remarkable for sodium of 127, improved to 130 by day of discharge. Patient admitted to medicine for further management. Cardiology consulted. Doing better since admission, no further syncope or falls. Taken for stress test 03/07, abnormal with transient ischemic findings. Taken for left heart cath with no reversible disease. Loop recorder placed during admission. Stable to discharge home with her home health aide. Problems addressed as follows: Syncope CAD Abnormal stress test -Admitted for syncope. Cardiology assisted with care. Loop recorder placed 03/06. Stress test performed showing concern for transient ischemic findings, left heart cath performed 03/07. Patient had nonocclusive disease. Recommend continued med management. Monitored on telemetry throughout admission. No arrhythmias noted. Echo obtained showing Normal LV systolic function, moderate RV dilation with mild reduction in RV function. Elevated RVSP of 40 to 45 mmHg. Follow-up with cardiology in the outpatient setting. Hyponatremia hypokalemia -Clinically showing improvement electrolyte disturbances. Sodium improving. In the low 130s by day of discharge. Potassium stable at 3.7. No indication for supplementation at this time. Lupus with chronic arthritis -Recent knee surgery, still having some pain. Continue hydrocodone as needed for pain from loop recorder and her knee. chronic steroid therapy CAD -Continue Jardiance 25 mg daily, carvedilol 6.25 mg twice daily, chlorthalidone 25 mg daily, aspirin and Plavix for dual antiplatelet therapy. Bumex 1 mg daily, and Crestor 20 mg daily. Mild anemia -Hgb 10.4, in the setting of chronic disease. Stable for patient. Lower extremity edema multifactorial with her heart failure, volume overload, postsurgical. Ultrasound performed with no DVTs. Therapy working with patient daily. Will return home with home health PT and OT at discharge Exam Data for Last 24 hours Vital signs and Labs for Last 24 Hours: Temp Pulse Resp BP Pulse Ox O2 Del Method 99.2 F 71 17 129/70 97 Room Air 03/07/24 15:00 03/07/24 15:15 03/07/24 15:15 03/07/24 15:15 03/07/24 15:15 03/07/24 15:15 Laboratory Results - last 24 hr 03/07/24 01:19: Urine Color Yellow, Urine Appearance Clear, Urine pH 7.5, Ur Specific [place] 1.010, Urine Protein Negative, Urine Glucose (UA) 2+, Urine Ketones Negative, Urine Blood Negative, Urine Nitrate Negative, Urine Bilirubin Negative, Urine Urobilinogen 1.0, Ur Leukocyte Esterase Negative, Urine WBC Occasional, Ur Squamous Epith Cells 5-10, Urine Bacteria Trace 03/07/24 05:45: WBC 5.8, RBC 3.59 L, Hgb 10.2 L, Hct 32.5 L, MCV 90.4, MCH 28.3, MCHC 31.3 L, RDW 17.8 H, Plt Count 373, MPV 8.0, Neut % (Auto) 46.0, Lymph % (Auto) 33.6, [place] % (Auto) 10.4 H, Eos % (Auto) 9.6, Baso % (Auto) 0.4, Neut # (Auto) 2.7, Lymph # (Auto) 2.0, [place] # (Auto) 0.6, Eos # (Auto) 0.6 H, Baso # (Auto) 0.0, Sodium 132 L, Potassium 3.5, Chloride 99, Carbon Dioxide 29, Anion Gap 7.5, BUN 17, Creatinine 1.10 H, Estimated Creat Clear 64, Estimated GFR 48 L, Est GFR ( Amer) 58 L, Glucose 88, Calcium 9.2, Total Bilirubin 0.2, AST 31, ALT 7 L, Alkaline Phosphatase 121, Total Protein 6.0 L, Albumin 3.1 L, Globulin 2.9, Albumin/Globulin Ratio 1.1 I & O for Last 24 hours: Intake & Output 03/04/24 03/05/24 03/06/24 03/07/24 23:59 23:59 23:59 23:59 Intake Total 1885 / 2565 1670 / 1890 1870 / 2110 400 / 400 Output Total 1450 / 1450 1200 / 1200 1800 / 1800 0 / 0 Balance 435 / 1115 470 / 690 70 / 310 400 / 400 Weight 87.177 kg 88.621 kg 90 kg 92.578 kg Constitutional Constitutional: no acute distress, obese and chronically ill appearing *Routine HEENT Exam Head: Present normocephalic Eye: Present EOMI and PERRL ENT: Present mucous membranes moist *Routine Neck Exam Neck: Present supple; Absent lymphadenopathy Routine Chest/Breast/Axilla Exam Chest wall: Present tenderness (At site of placement of loop recorder) *Routine Respiratory Exam Respiratory: Present CTA bilaterally; Absent rhonchi, wheezes or crackles *Routine Cardiovascular Exam Cardiovascular: Present RRR *Routine Abdominal Exam Abdominal: Present soft and normoactive bowel sounds; Absent tenderness *Routine Rectal Exam Patient deferred: visual exam *Routine Exam Patient deferred: external exam *Routine Extremities Exam Extremities: Present edema (3+ to thighs); Absent cyanosis or clubbing *Routine Skin Exam Skin: Present intact and warm; Absent rash *Routine Neurological Exam Neurological: Present alert, oriented X3 and moving all extremities; Absent altered mental status Results Data Completed and Pending Labs on day of discharge: Labs from last 24 hours 03/07/24 03/07/24 05:45 01:19 WBC 5.8 RBC 3.59 L Hgb 10.2 L Hct 32.5 L MCV 90.4 MCH 28.3 MCHC 31.3 L RDW 17.8 H Plt Count 373 MPV 8.0 Neut % (Auto) 46.0 Lymph % (Auto) 33.6 [place] % (Auto) 10.4 H Eos % (Auto) 9.6 Baso % (Auto) 0.4 Neut # (Auto) 2.7 Lymph # (Auto) 2.0 [place] # (Auto) 0.6 Eos # (Auto) 0.6 H Baso # (Auto) 0.0 Sodium 132 L Potassium 3.5 Chloride 99 Carbon Dioxide 29 Anion Gap 7.5 BUN 17 Creatinine 1.10 H Estimated Creat Clear 64 Estimated GFR 48 L Est GFR ( Amer) 58 L Glucose 88 Calcium 9.2 Total Bilirubin 0.2 AST 31 ALT 7 L Alkaline Phosphatase 121 Total Protein 6.0 L Albumin 3.1 L Globulin 2.9 Albumin/Globulin Ratio 1.1 Urine Color Yellow Urine Appearance Clear Urine pH 7.5 Ur Specific [place] 1.010 Urine Protein Negative Urine Glucose (UA) 2+ Urine Ketones Negative Urine Blood Negative Urine Nitrate Negative Urine Bilirubin Negative Urine Urobilinogen 1.0 Ur Leukocyte Esterase Negative Urine WBC Occasional Ur Squamous Epith Cells 5-10 Urine Bacteria Trace DS: Diagnosis Discharge Diagnosis (1) Syncope: Status: Acute Code(s): R55 - Syncope and collapse Qualifiers: Syncope type: unspecified Qualified Code(s): R55 - Syncope and collapse (2) Acute hyponatremia: Status: Acute Code(s): E87.1 - Hypo-osmolality and hyponatremia (3) Bilateral carotid artery disease: Status: Acute Code(s): I77.9 - Disorder of arteries and arterioles, unspecified Qualifiers: Carotid artery disease type: stenosis Qualified Code(s): I65.23 - Occlusion and stenosis of bilateral carotid arteries (4) CAD in [place] artery: Status: Acute Code(s): I25.10 - Atherosclerotic heart disease of [place] coronary artery without angina pectoris (5) HTN (hypertension), benign: Status: Acute Code(s): I10 - Essential (primary) hypertension (6) Diastolic dysfunction: Status: Chronic Code(s): I51.9 - Heart disease, unspecified (7) Knee pain: Status: Acute Code(s): M25.569 - Pain in unspecified knee Qualifiers: Chronicity: chronic Laterality: left Qualified Code(s): M25.562 - Pain in left knee; G89.29 - Other chronic pain Problem details: s/p recent surgery (8) CKD (chronic kidney disease): Status: Acute Code(s): N18.9 - Chronic kidney disease, unspecified Qualifiers: Chronic kidney disease stage: stage 3 (moderate) Chronic kidney disease stage 3 subtype: stage 3a (GFR 45-59) Qualified Code(s): N18.31 - Chronic kidney disease, stage 3a (9) Abnormal cardiovascular stress test: Status: Acute Code(s): R94.39 - Abnormal result of other cardiovascular function study Meds Home Medications and Allergies Home Medications Medication Instructions Recorded Confirmed Type allopurinol 100 mg tablet 100 mg PO DAILY 04/10/23 03/04/24 History bupropion HCl 100 mg tablet 100 mg PO DAILY 04/10/23 03/04/24 History bupropion HCl 100 mg tablet 200 mg PO HS 04/10/23 03/04/24 History carbidopa 25 mg-levodopa 100 mg 1 tab PO TID 04/10/23 03/04/24 History tablet carvedilol 6.25 mg tablet 6.25 mg PO BID 04/10/23 03/04/24 History chlorthalidone 25 mg tablet 25 mg PO DAILY 04/10/23 03/04/24 History cholecalciferol (vitamin D3) 25 25 mcg PO BID 04/10/23 03/04/24 History mcg (1,000 unit) tablet clopidogrel 75 mg tablet 75 mg PO DAILY 04/10/23 03/04/24 History donepezil 10 mg tablet 10 mg PO HS 04/10/23 03/04/24 History dorzolamide 22.3 mg-timolol 6.8 1 drp Eye-Both BID 04/10/23 03/04/24 History mg/mL eye drops fluticasone propionate 50 1 spray intranasal DAILYP PRN 04/10/23 03/04/24 History mcg/actuation nasal Allergy Symptoms spray,suspension gabapentin 300 mg capsule 300 mg PO 5XDAY Neuropathy 04/10/23 03/04/24 History meclizine 25 mg tablet 25 mg PO TIDP PRN Vertigo 04/10/23 03/04/24 History memantine 10 mg tablet 10 mg PO BID 04/10/23 03/04/24 History methimazole 5 mg tablet 5 mg PO TID 04/10/23 03/04/24 History montelukast 10 mg tablet 10 mg PO PM 04/10/23 03/04/24 History potassium chloride 20 mEq 20 meq PO BID 04/10/23 03/04/24 History tablet,extended release(part/cryst) primidone 250 mg tablet 250 mg PO HS 04/10/23 03/04/24 History albuterol sulfate 90 mcg/actuation 2 puff inhalation Q4HP PRN 06/28/23 03/04/24 History aerosol inhaler Shortness Of Breath aspirin 81 mg tablet,delayed 81 mg PO DAILY 06/28/23 03/04/24 History release cetirizine 10 mg tablet 10 mg PO DAILY 06/28/23 03/04/24 History colchicine 0.6 mg capsule 0.6 mg PO DAILY 06/28/23 03/03/24 History (Mitigare) empagliflozin 25 mg tablet 25 mg PO DAILY 06/28/23 03/04/24 History (Jardiance) rosuvastatin 20 mg tablet 20 mg PO HS 06/28/23 03/04/24 History ascorbic acid (vitamin C) 500 mg 500 mg PO DAILY 10/28/23 03/04/24 History tablet (Vitamin C) omeprazole 40 mg capsule,delayed 40 mg PO DAILY 10/28/23 03/04/24 History release prednisone 5 mg tablet 5 mg PO DIRECTED 12/22/23 03/04/24 History bumetanide 1 mg tablet 1 mg PO DAILY 03/03/24 03/04/24 History belimumab 200 mg/mL subcutaneous 200 mg SQ DIRECTED 03/04/24 03/04/24 History auto-injector (Benlysta) docusate sodium 100 mg capsule 100 mg PO BID 03/04/24 03/04/24 History hydrocodone 5 mg-acetaminophen 325 1 tab PO Q4HP PRN Moderate Pain 03/04/24 03/04/24 History mg tablet (Scale Score 5-6) lidocaine 5 % topical patch 1 - 2 patch transdermal DAILY 03/04/24 03/04/24 History magnesium oxide 400 mg (241.3 mg 400 mg PO DAILY 30 days #30 tabs 03/07/24 Rx magnesium) tablet New Prescriptions to Start Prescriptions: magnesium oxide Cory Salcido Allergies Allergy/AdvReac Type Severity Reaction Status Date / Time prochlorperazine Allergy Intermediate HALLUCINATI Verified 12/22/23 10:55 [PROCHLORPERAZINE] ONS oxycodone [OXYCODONE] Allergy Unknown HALLUCINATI Verified 12/22/23 10:55 ONS ibuprofen [IBUPROFEN] AdvReac Unknown PT HAS Verified 12/22/23 10:55 RENAL FAILURE Discharge Plan Disposition Patient Disposition: Home Health Service Condition: Fair Discharge Order Discharge Orders: Discharge Order (Routine); Ordered 03/08/24 Ordered By: Cory Salcido Follow up Plan Follow up with: Miller Hazel MD [Primary Care Provider] - 03/09/24 9:45 am Nish Murphy MD [Staff Physician] - 03/21/24 9:30 am Prescriptions/Medication Reconciliation: New magnesium oxide 400 mg (241.3 mg magnesium) Tablet 400 mg PO DAILY 30 Days Qty: 30 0RF Continued omeprazole 40 mg capsule,delayed release(DR/EC) 40 mg PO DAILY ascorbic acid (vitamin C) [Vitamin C] 500 mg tablet 500 mg PO DAILY Patient Comments: TAKE 1 TABLET BY MOUTH EVERY DAY prednisone 5 mg tablet 5 mg PO DIRECTED carvedilol 6.25 mg tablet 6.25 mg PO BID Patient Comments: TAKE ONE TABLET BY MOUTH TWICE DAILY donepezil 10 mg tablet 10 mg PO HS Patient Comments: TAKE ONE TABLET BY MOUTH EVERY DAY AT BEDTIME clopidogrel 75 mg tablet 75 mg PO DAILY Patient Comments: TAKE ONE TABLET BY MOUTH EVERY DAY chlorthalidone 25 mg tablet 25 mg PO DAILY Patient Comments: TAKE ONE TABLET BY MOUTH EVERY DAY allopurinol 100 mg tablet 100 mg PO DAILY Patient Comments: TAKE ONE TABLET BY MOUTH EVERY DAY bupropion HCl 100 mg tablet 100 mg PO DAILY Patient Comments: TAKE ONE TABLET BY MOUTH EVERY MORNING AND TAKE TWO TABLETS BY MOUTH EVERY DAY AT BEDTIME potassium chloride 20 mEq tablet,ER particles/crystals 20 meq PO BID Patient Comments: TAKE ONE TABLET BY MOUTH TWICE DAILY primidone 250 mg tablet 250 mg PO HS Patient Comments: TAKE ONE TABLET BY MOUTH EVERY NIGHT DIRECTED meclizine 25 mg tablet 25 mg PO TIDP PRN (Reason: Vertigo) Patient Comments: TAKE ONE TABLET BY MOUTH THREE TIMES DAILY NEEDED methimazole 5 mg tablet 5 mg PO TID Patient Comments: TAKE ONE TABLET BY MOUTH EVERY 8 HOURS gabapentin 300 mg capsule 300 mg PO 5XDAY dorzolamide-timolol 22.3-6.8 mg/mL drops 1 drp Eye-Both BID montelukast 10 mg tablet 10 mg PO PM Patient Comments: TAKE ONE TABLET BY MOUTH EVERY DAY carbidopa-levodopa 25-100 mg tablet 1 tab PO TID Patient Comments: TAKE ONE TABLET BY MOUTH THREE TIMES DAILY may take with OR without food fluticasone propionate 50 mcg/actuation spray,suspension 1 spray INTRANASAL DAILYP PRN (Reason: Allergy Symptoms) Patient Comments: instill 1-2 Logan(s) IN EACH NOSTRIL EVERY DAY DIRECTED memantine 10 mg tablet 10 mg PO BID Patient Comments: TAKE ONE TABLET BY MOUTH TWICE DAILY cholecalciferol (vitamin D3) 25 mcg (1,000 unit) tablet 25 mcg PO BID Patient Comments: TAKE ONE TABLET BY MOUTH TWICE DAILY bupropion HCl 100 mg tablet 200 mg PO HS Patient Comments: TAKE ONE TABLET BY MOUTH EVERY MORNING AND TAKE TWO TABLETS BY MOUTH EVERY DAY AT BEDTIME cetirizine 10 mg Tablet 10 mg PO DAILY aspirin 81 mg Tablet,Delayed Release (Dr/Ec) 81 mg PO DAILY rosuvastatin 20 mg Tablet 20 mg PO HS Jardiance 25 mg Tablet 25 mg PO DAILY colchicine [Mitigare] 0.6 mg Capsule 0.6 mg PO DAILY albuterol sulfate 90 mcg/actuation HFA aerosol inhaler 2 puff INHALATION Q4HP PRN (Reason: Shortness Of Breath) Patient Comments: INHALE TWO PUFFS BY MOUTH EVERY 4 HOURS NEEDED FOR wheezing bumetanide 1 mg tablet 1 mg PO DAILY lidocaine 5 % adhesive patch,medicated 1 - 2 patch transdermal DAILY Patient Comments: APPLY 1-2 PATCHES TOPICALLY TO THE AFFECTED AREA ONCE DAILY AND LEAVE IN PLACE FOR 12 HOURS, THEN REMOVE AND LEAVE OFF FOR 12 HOURS docusate sodium 100 mg capsule 100 mg PO BID Patient Comments: TAKE ONE CAPSULE BY MOUTH TWICE DAILY Benlysta 200 mg/mL auto-injector 200 mg SQ DIRECTED hydrocodone-acetaminophen 5-325 mg tablet 1 tab PO Q4HP PRN (Reason: Moderate Pain (Scale Score 5-6)) Problem Reconciliation Problems Reviewed?: Yes Patient Discharge Instructions ACTIVITY: Continue current activity DIET: continue same diet Patient Instructions: DI for Syncope in Adults (Fainting), DI for Hyponatremia, DI for Surgical Site Infection Providers Primary Care Provider: Miller Hazel Admjaun Provider: Julisa Quesada Attending Provider: Julisa Quesada
[2024-03-08] MEDS: ASPIRIN EC 81MG TABLET 81 MG PO (09:35)
[2024-03-08] MEDS: CLOPIDOGREL 75MG TAB 75 MG PO (09:35)
[2024-03-08] MEDS: CARVEDILOL 6.25MG TABLET 6.25 MG PO (09:35)
[2024-03-08] MEDS: MAGNESIUM OXIDE 400MG TABLET 400 MG PO (09:35)
[2024-03-08] MEDS: CARBIDOPA/LEVODOPA 25/100MG TABLET 1 EACH PO (09:35)
[2024-03-08] MEDS: POTASSIUM CHLORIDE 20MEQ TAB 20 MEQ PO (09:35)
[2024-03-08] MEDS: ALLOPURINOL 100MG TABLET 100 MG PO (09:36)
[2024-03-08] MEDS: MEMANTINE 10MG TABLET 10 MG PO (09:36)
[2024-03-08] MEDS: DORZOLAMIDE OP (09:36)
[2024-03-08] MEDS: TIMOLOL OP (09:36)
--- NOTE | 2024-03-09 16:05 | CARE MANAGER ---
Contacted patient related to hospital discharge. She states she is doing better. She has new medication and is aware of follow up appointments. Denies any questions or concerns at this time. MAGALIE Coates
== END 2024-03-08 11:32 | disposition home health service (06) | DRG 261 ==
LOC: ER 17:33 → 2ND 18:01
PROVIDERS: Internal Medicine; Internal Medicine Adolescent Medicine; Nurse Practitioner Family; Physician Assistant; Admitting Provider Internal Medicine; Emergency Provider Student in an Organized Health Care Education/Training Program; PCP Internal Medicine Adolescent Medicine; Visit Provider Internal Medicine
PROC: 4A023N7 Measurement of Cardiac Sampling and Pressure, Left Heart, Percutaneous Approach (ICD-10-PCS; principal; 2024-03-07 12:30)
DX: I13.0 Hypertensive heart and chronic kidney disease with heart failure and stage 1 through stage 4 chronic kidney disease, or unspecified chronic kidney disease (principal); E87.1 Hypo-osmolality and hyponatremia; R55 Syncope and collapse; I25.10 Atherosclerotic heart disease of native coronary artery without angina pectoris; I65.23 Occlusion and stenosis of bilateral carotid arteries; M25.562 Pain in left knee; G89.29 Other chronic pain; N18.31 Chronic kidney disease, stage 3a; I27.20 Pulmonary hypertension, unspecified; L93.2 Other local lupus erythematosus; E87.6 Hypokalemia; E05.90 Thyrotoxicosis, unspecified without thyrotoxic crisis or storm; D63.1 Anemia in chronic kidney disease; I73.9 Peripheral vascular disease, unspecified; E66.9 Obesity, unspecified; R94.39 Abnormal result of other cardiovascular function study; K21.9 Gastro-esophageal reflux disease without esophagitis; I70.1 Atherosclerosis of renal artery; Z96.652 Presence of left artificial knee joint; Z86.718 Personal history of other venous thrombosis and embolism; Z79.84 Long term (current) use of oral hypoglycemic drugs; Z79.899 Other long term (current) drug therapy; Z79.82 Long term (current) use of aspirin; Z79.02 Long term (current) use of antithrombotics/antiplatelets; Z79.51 Long term (current) use of inhaled steroids; Z79.620 Long term (current) use of immunosuppressive biologic; Z79.891 Long term (current) use of opiate analgesic; Z88.6 Allergy status to analgesic agent; Z88.5 Allergy status to narcotic agent; Z88.8 Allergy status to other drugs, medicaments and biological substances; Z68.35 Body mass index [BMI] 35.0-35.9, adult; Z95.5 Presence of coronary angioplasty implant and graft; Z98.890 Other specified postprocedural states; Z81.1 Family history of alcohol abuse and dependence; Z84.1 Family history of disorders of kidney and ureter; Z82.49 Family history of ischemic heart disease and other diseases of the circulatory system; Z83.438 Family history of other disorder of lipoprotein metabolism and other lipidemia; Z80.9 Family history of malignant neoplasm, unspecified; Z81.8 Family history of other mental and behavioral disorders; Z83.2 Family history of diseases of the blood and blood-forming organs and certain disorders involving the immune mechanism; Z81.4 Family history of other substance abuse and dependence; Z47.1 Aftercare following joint replacement surgery
CPT/HCPCS: 36415; 71275; 73560; 78452; 80048; 80053; 81001; 83735; 83880; 84436; 84443; 84479; 84484; 85025; 85378; 93005; 93017; 93018; 93306; 93880; 93971; 97161; 97165; 97530; 99152; 99285; A9502; C1725; C1764; C1769; J0690; J1644; J2250; J2270; J2785; J3010; J3480; J7120; Q9967

== ENCOUNTER 2024-03-15 11:39 | Outpatient (CLI) | payer MEDICARE, MEDICAID, SELFPAY ==
[2024-03-15 11:47] LABS: Microscopic, Urine URINE MICROSCOPIC (MICROSCOPIC)
[2024-03-15 11:53] LABS: Appearance,Urine CLOUDY (Clear); Bilirubin,Urine Negative (Negative); Blood, Urine TRACE-I (Negative); Color,Urine YELLOW (Yellow); Glucose,Urine (UA) 3+ (Negative); Ketones,Urine Negative (Negative); Leukocyte Esterase,Urine 2+ (Negative); Nitrate,Urine POSITIVE (Negative); Protein,Urine Negative (Negative); Specific Gravity, Urine 1.015 (1.005-1.030); Urobilinogen,Urine 0.2 EU/dl (0.2)
[2024-03-15 12:04] LABS: Bacteria,Urine 2+ /lpf; RBC,Urine Occasional #/hpf (0-3); Squamous Epithelial Cell,Urine Occasional #/hpf (0-5); WBC,Urine 50-100 #/hpf (0-3)
== END 2024-03-15 23:59 | disposition home or self-care (01) ==
LOC: LAB.DROPOF 11:40
PROVIDERS: PCP Nurse Practitioner Family; Visit Provider Nurse Practitioner Family
DX: R30.0 Dysuria (principal)
CPT/HCPCS: 81001; 87086; 87088; 87186

== ENCOUNTER 2024-03-22 16:21 | Outpatient (CLI) | payer MEDICARE, MEDICAID, SELFPAY ==
[2024-03-22 17:32] LABS: Anion Gap 14.9 mEq/L (5-15); Blood Urea Nitrogen 20 mg/dl (7-17); Calcium 9.4 mg/dl (8.4-10.2); Carbon Dioxide 27 mmol/L (22.0-30.0); Chloride 96 mmol/L (98-107); Estimated Glomerular Filt Rate 40 ml/min (>60); GFR (African American) 48 ML/MIN (>60); Glucose 83 mg/dl (74-100); Potassium 4.9 mmoL/L (3.5-5.1); Sodium 133 mmol/L (136-145)
== END 2024-03-22 23:59 | disposition home or self-care (01) ==
LOC: LAB.DROPOF 16:23
PROVIDERS: PCP Nurse Practitioner Family; Visit Provider Nurse Practitioner Family
DX: I73.00 Raynaud's syndrome without gangrene (principal); M32.9 Systemic lupus erythematosus, unspecified; M48.00 Spinal stenosis, site unspecified; M54.2 Cervicalgia; R53.83 Other fatigue; Z91.89 Other specified personal risk factors, not elsewhere classified; Z79.899 Other long term (current) drug therapy
CPT/HCPCS: 80048

== ENCOUNTER 2024-05-02 15:08 | Outpatient (CLI) | payer MEDICARE, MEDICAID, SELFPAY ==
[2024-05-02 15:42] LABS: Basophils # 0.1 K/mm3 (0-0.2); Basophils % 0.6 % (0.1-2.0); Eosinophils # 0.2 K/mm3 (0.0-0.4); Eosinophils % 2.4 % (0.1-12.0); Hematocrit 45.6 % (37.0-47.0); Hemoglobin 13.8 g/dL (12.2-16.2); Lymphocytes % 24.9 % (10-50); Mean Corpuscular HGB Conc 30.3 g/dL (31.8-35.4); Mean Corpuscular Hemoglobin 27.8 pg (27.0-31.2); Mean Corpuscular Volume 91.8 fl (81-99); Mean Platelet Volume 8.1 fl (7.4-10.4); Monocytes # 0.5 K/mm3 (0.1-1.0); Monocytes % 6.4 % (1.7-9.3); Neutrophils # 5.2 K/mm3 (1.8-7.8); Neutrophils % 65.7 % (37.0-80.0); Platelet Count 307 K/mm3 (142-424); Red Blood Count 4.97 M/mm3 (4.20-5.40); Red Cell Distribution Width 15.9 % (11.5-17.5)
[2024-05-02 16:20] LABS: Alanine Aminotransferase 10 U/L (12-78); Albumin Level 4.2 g/dl (3.5-5.0); Albumin/Globulin Ratio 1.4 (1.1-1.8); Alkaline Phosphatase 151 U/L (38-126); Anion Gap 15.7 mEq/L (5-15); Aspartate Amino Transferase 31 U/L (14-36); Bilirubin,Total 0.4 mg/dl (0.2-1.3); Blood Urea Nitrogen 50 mg/dl (7-17); Calcium 9.5 mg/dl (8.4-10.2); Carbon Dioxide 27 mmol/L (22.0-30.0); Chloride 94 mmol/L (98-107); Estimated Glomerular Filt Rate 22 ml/min (>60); GFR (African American) 26 ML/MIN (>60); Globulin 3.1 g/dL (1.3-3.2); Glucose 68 mg/dl (74-100); Potassium 3.7 mmoL/L (3.5-5.1); Sodium 133 mmol/L (136-145); Total Protein,Serum 7.3 g/dl (6.3-8.2)
[2024-05-02 18:30] LABS: Thyroid Stimulating Hormone 1.62 uIU/mL (0.465-4.68)
== END 2024-05-02 23:59 | disposition home or self-care (01) ==
LOC: LAB 15:09
PROVIDERS: PCP Nurse Practitioner Family; Visit Provider Nurse Practitioner Family
DX: R53.82 Chronic fatigue, unspecified (principal)
CPT/HCPCS: 36415; 80050; 80053; 84443; 85025

== ENCOUNTER 2024-05-03 10:59 | Outpatient (CLI) | payer MEDICARE, MEDICAID, SELFPAY ==
[2024-05-03 11:15] VITALS: BP 116/51; PULSE 75; RESP 18; TEMP 36.5; O2SAT 98
[2024-05-03] MEDS: 0.9 % SODIUM CHLORIDE 1000ML 1,000 ML 125 ML IV (11:15)
[2024-05-03 15:45] VITALS: BP 140/51; PULSE 76; RESP 18; O2SAT 98
== END 2024-05-03 15:45 | disposition home or self-care (01) ==
LOC: INF 11:00
PROVIDERS: PCP Internal Medicine Adolescent Medicine; Visit Provider Internal Medicine Adolescent Medicine
DX: E86.0 Dehydration (principal)
CPT/HCPCS: J7040; 96360; 96361

== ENCOUNTER 2024-05-06 12:26 | Emergency (ER) | payer MEDICARE, MEDICAID, SELFPAY ==
[2024-05-06 12:55] VITALS: BP 122/66; PULSE 78; RESP 19; TEMP 37.1; O2SAT 98; BMI 34.7
--- NOTE | 2024-05-06 13:55 | EXP.UTC ---
Discharge Plan Disposition Patient Disposition: Home, Self-Care Condition: Good Prescriptions Prescriptions: No Action omeprazole 40 mg capsule,delayed release(DR/EC) 40 mg PO DAILY ascorbic acid (vitamin C) [Vitamin C] 500 mg tablet 500 mg PO DAILY Patient Comments: TAKE 1 TABLET BY MOUTH EVERY DAY prednisone 5 mg tablet 5 mg PO DIRECTED pantoprazole 20 mg tablet,delayed release (DR/EC) PO Patient Comments: TAKE ONE TABLET BY MOUTH EVERY DAY hydrocodone-acetaminophen 7.5-325 mg tablet PO Patient Comments: TAKE ONE TABLET BY MOUTH EVERY 6 HOURS NEEDED MAY CAUSE DROWSINESS bumetanide 1 mg tablet See Rx Instructions .ROUTE .COMPLEX Qty: 90 3RF Dose Instruction: TAKE THREE TABLETS BY MOUTH EVERY DAY FOR fluid Rx Instructions: TAKE THREE TABLETS BY MOUTH EVERY DAY FOR fluid carvedilol 6.25 mg tablet 6.25 mg PO BID Patient Comments: TAKE ONE TABLET BY MOUTH TWICE DAILY donepezil 10 mg tablet 10 mg PO HS Patient Comments: TAKE ONE TABLET BY MOUTH EVERY DAY AT BEDTIME clopidogrel 75 mg tablet 75 mg PO DAILY Patient Comments: TAKE ONE TABLET BY MOUTH EVERY DAY chlorthalidone 25 mg tablet 25 mg PO DAILY Patient Comments: TAKE ONE TABLET BY MOUTH EVERY DAY allopurinol 100 mg tablet 100 mg PO DAILY Patient Comments: TAKE ONE TABLET BY MOUTH EVERY DAY bupropion HCl 100 mg tablet 100 mg PO DAILY Patient Comments: TAKE ONE TABLET BY MOUTH EVERY MORNING AND TAKE TWO TABLETS BY MOUTH EVERY DAY AT BEDTIME potassium chloride 20 mEq tablet,ER particles/crystals 20 meq PO BID Patient Comments: TAKE ONE TABLET BY MOUTH TWICE DAILY primidone 250 mg tablet 250 mg PO HS Patient Comments: TAKE ONE TABLET BY MOUTH EVERY NIGHT DIRECTED meclizine 25 mg tablet 25 mg PO TIDP PRN (Reason: Vertigo) Patient Comments: TAKE ONE TABLET BY MOUTH THREE TIMES DAILY NEEDED methimazole 5 mg tablet 5 mg PO TID Patient Comments: TAKE ONE TABLET BY MOUTH EVERY 8 HOURS gabapentin 300 mg capsule 300 mg PO 5XDAY dorzolamide-timolol 22.3-6.8 mg/mL drops 1 drp Eye-Both BID montelukast 10 mg tablet 10 mg PO PM Patient Comments: TAKE ONE TABLET BY MOUTH EVERY DAY carbidopa-levodopa 25-100 mg tablet 1 tab PO TID Patient Comments: TAKE ONE TABLET BY MOUTH THREE TIMES DAILY may take with OR without food fluticasone propionate 50 mcg/actuation spray,suspension 1 spray INTRANASAL DAILYP PRN (Reason: Allergy Symptoms) Patient Comments: instill 1-2 [place](s) IN EACH NOSTRIL EVERY DAY DIRECTED memantine 10 mg tablet 10 mg PO BID Patient Comments: TAKE ONE TABLET BY MOUTH TWICE DAILY cholecalciferol (vitamin D3) 25 mcg (1,000 unit) tablet 25 mcg PO BID Patient Comments: TAKE ONE TABLET BY MOUTH TWICE DAILY bupropion HCl 100 mg tablet 200 mg PO HS Patient Comments: TAKE ONE TABLET BY MOUTH EVERY MORNING AND TAKE TWO TABLETS BY MOUTH EVERY DAY AT BEDTIME cetirizine 10 mg Tablet 10 mg PO DAILY aspirin 81 mg Tablet,Delayed Release (Dr/Ec) 81 mg PO DAILY rosuvastatin 20 mg Tablet 20 mg PO HS Jardiance 25 mg Tablet 25 mg PO DAILY colchicine [Mitigare] 0.6 mg Capsule 0.6 mg PO DAILY albuterol sulfate 90 mcg/actuation HFA aerosol inhaler 2 puff INHALATION Q4HP PRN (Reason: Shortness Of Breath) Patient Comments: INHALE TWO PUFFS BY MOUTH EVERY 4 HOURS NEEDED FOR wheezing lidocaine 5 % adhesive patch,medicated 1 - 2 patch transdermal DAILY Patient Comments: APPLY 1-2 PATCHES TOPICALLY TO THE AFFECTED AREA ONCE DAILY AND LEAVE IN PLACE FOR 12 HOURS, THEN REMOVE AND LEAVE OFF FOR 12 HOURS docusate sodium 100 mg capsule 100 mg PO BID Patient Comments: TAKE ONE CAPSULE BY MOUTH TWICE DAILY Benlysta 200 mg/mL auto-injector 200 mg SQ DIRECTED hydrocodone-acetaminophen 5-325 mg tablet 1 tab PO Q4HP PRN (Reason: Moderate Pain (Scale Score 5-6)) magnesium oxide 400 mg (241.3 mg magnesium) Tablet 400 mg PO DAILY 30 Days Qty: 30 0RF Referrals Follow up/Referrals: Miller Hazel MD [Primary Care Provider] - See instructions Activity Restrictions/Add. Instructions Additional Instructions/Restrictions: RAD WILL CALL WHEN IN THE HOSPITAL FOR YOU TO RETURN FOR VENOUS DOPPLER Clinical Impressions Clinical Impression: Acute leg pain Instructions Patient Instructions: DI for Leg Pain Print Language Print Language: Turkish Discharge ED Provider: Mike ([facility] [place] HPI General Stated complaint: lower left leg pain Mode of Arrival: Ambulatory Source of Information: Patient Limitations: No Limitations Time Seen by Provider: 05/06/24 14:15 Description of Symptoms (Recalled from Triage Doc. by RN): PATIENT C/O PAIN TO LEFT LOWER LEG AND TIGHTNESS TO KNEE CAP THAT STARTED THIS MORNING. PATIENT DENIES INJURY, PATIENT REPORTS HAVING LEFT KNEE REPLACEMENT IN JANUARY HEENT Symptoms (Recalled from RN notes): No Resp Symptoms (Recalled from RN notes): No Skin Symptoms (Recalled from RN notes): No MS Symptoms (Recalled from RN notes): Yes Functional Status (Recalled from RN notes): WNL History of Present Illness Provider Complaint: 78 YR OLD FEMALE PRESNTS FOR C/O PAIN TO LEFT LOWER LEG AND TIGHTNESS TO KNEE CAP THAT STARTED THIS MORNING. PATIENT DENIES INJURY, PATIENT REPORTS HAVING LEFT KNEE REPLACEMENT IN JANUARY. PT STATES SHE IS OFF HER BLOOD THINNERS DUE TO HAVING A PROCEURE FOR PAIN MANGEMENT. HX OF DVT IN SAME LEG Related Data Home Medications ?Medication ?Instructions ?Recorded ?Confirmed allopurinol 100 mg tablet 100 mg PO DAILY 04/10/23 03/21/24 bupropion HCl 100 mg tablet 100 mg PO DAILY 04/10/23 03/21/24 bupropion HCl 100 mg tablet 200 mg PO HS 04/10/23 03/21/24 carbidopa 25 mg-levodopa 100 mg 1 tab PO TID 04/10/23 03/21/24 tablet carvedilol 6.25 mg tablet 6.25 mg PO BID 04/10/23 03/21/24 chlorthalidone 25 mg tablet 25 mg PO DAILY 04/10/23 03/21/24 cholecalciferol (vitamin D3) 25 25 mcg PO BID 04/10/23 03/21/24 mcg (1,000 unit) tablet clopidogrel 75 mg tablet 75 mg PO DAILY 04/10/23 03/21/24 donepezil 10 mg tablet 10 mg PO HS 04/10/23 03/21/24 dorzolamide 22.3 mg-timolol 6.8 1 drp Eye-Both BID 04/10/23 03/21/24 mg/mL eye drops fluticasone propionate 50 1 spray intranasal DAILYP PRN 04/10/23 03/21/24 mcg/actuation nasal Allergy Symptoms spray,suspension gabapentin 300 mg capsule 300 mg PO 5XDAY Neuropathy 04/10/23 03/21/24 meclizine 25 mg tablet 25 mg PO TIDP PRN Vertigo 04/10/23 03/21/24 memantine 10 mg tablet 10 mg PO BID 04/10/23 03/21/24 methimazole 5 mg tablet 5 mg PO TID 04/10/23 03/21/24 montelukast 10 mg tablet 10 mg PO PM 04/10/23 03/21/24 potassium chloride 20 mEq 20 meq PO BID 04/10/23 03/21/24 tablet,extended release(part/cryst) primidone 250 mg tablet 250 mg PO HS 04/10/23 03/21/24 albuterol sulfate 90 mcg/actuation 2 puff inhalation Q4HP PRN 06/28/23 03/21/24 aerosol inhaler Shortness Of Breath aspirin 81 mg tablet,delayed 81 mg PO DAILY 06/28/23 03/21/24 release cetirizine 10 mg tablet 10 mg PO DAILY 06/28/23 03/21/24 colchicine 0.6 mg capsule 0.6 mg PO DAILY 06/28/23 03/21/24 (Mitigare) empagliflozin 25 mg tablet 25 mg PO DAILY 06/28/23 03/21/24 (Jardiance) rosuvastatin 20 mg tablet 20 mg PO HS 06/28/23 03/21/24 ascorbic acid (vitamin C) 500 mg 500 mg PO DAILY 10/28/23 03/21/24 tablet (Vitamin C) omeprazole 40 mg capsule,delayed 40 mg PO DAILY 10/28/23 03/21/24 release prednisone 5 mg tablet 5 mg PO DIRECTED 12/22/23 03/21/24 belimumab 200 mg/mL subcutaneous 200 mg SQ DIRECTED 03/04/24 03/21/24 auto-injector (Benlysta) docusate sodium 100 mg capsule 100 mg PO BID 03/04/24 03/21/24 hydrocodone 5 mg-acetaminophen 325 1 tab PO Q4HP PRN Moderate Pain 03/04/24 03/21/24 mg tablet (Scale Score 5-6) lidocaine 5 % topical patch 1 - 2 patch transdermal DAILY 03/04/24 03/21/24 hydrocodone 7.5 mg-acetaminophen tab PO 03/21/24 03/21/24 325 mg tablet pantoprazole 20 mg tablet,delayed mg PO 03/21/24 03/21/24 release Previous Rx's ?Medication ?Instructions ?Recorded magnesium oxide 400 mg (241.3 mg 400 mg PO DAILY 30 days #30 tabs 03/07/24 magnesium) tablet bumetanide 1 mg tablet See Rx Instructions .Route 03/13/24 .COMPLEX #90 tabs Allergies Allergy/AdvReac Type Severity Reaction Status Date / Time prochlorperazine Allergy Intermediate HALLUCINATI Verified 03/21/24 11:04 [PROCHLORPERAZINE] ONS oxycodone [OXYCODONE] Allergy Unknown HALLUCINATI Verified 03/21/24 11:04 ONS ibuprofen [IBUPROFEN] AdvReac Unknown PT HAS Verified 03/21/24 11:04 RENAL FAILURE Worker's Comp Is this a Worker's Comp case?: No [facility] Disclaimer: The information contained in this section may have been updated after the patient was seen, as this information can be updated by other users. 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) Tinnitus SNHL (sensorineural hearing loss) Chronic eustachian tube dysfunction CAD in [place] artery Syncope Bilateral carotid artery disease Lymphedema Angina pectoris History of COVID-19 COPD (chronic obstructive pulmonary disease) Systemic lupus Hypothyroid Difficulty swallowing Unstable angina Cataract Renal disease PVD (peripheral vascular disease) Palpitations HTN (hypertension), benign Heart murmur HLD (hyperlipidemia) GERD (gastroesophageal reflux disease) DVT (deep venous thrombosis) Peripheral arterial disease Right carotid bruit Carotid bruit Edema Diastolic dysfunction HHD (hypertensive heart disease) Surgical History , [employer]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) History of colonoscopy H/O tubal ligation H/O rotator cuff surgery History of back surgery Cataract extraction status, right eye Family History , [employer]X DEVELOPER) Tuberculosis Substance abuse Coronary artery disease Alcoholism Anemia Hyperlipidemia Kidney disease Heart attack FHx: mental illness Cancer Hypertension 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 , [employer]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) Smoking Status: Never smoker alcohol intake: former substance use type: denies use current occupational status: retired and disabled Travel in the last 8 weeks: None household members: children current occupational exposures/hazards: No ROS Obtained: Yes All systems reviewed & no additional complaints except as documented Constitutional Constitutional: Reports system reviewed and no additional complaints, except as documented Eyes Eyes: Reports system reviewed and no additional complaints, except as documented ENT Ears, Nose, Mouth, and Throat: Reports system reviewed and no additional complaints, except as documented Cardiovascular Cardiovascular: Reports system reviewed and no additional complaints, except as documented Respiratory Respiratory: Reports system reviewed and no additional complaints, except as documented Gastrointestinal Gastrointestingal: Reports system reviewed and no additional complaints, except as documented Musculoskeletal Musculoskeletal: Reports system reviewed and no additional complaints, except as documented, Reports as per HPI, Reports limited range of motion, Reports radiating pain into limb and Reports other (SWELLING) Integumentary/Breasts Skin/Breast: Reports system reviewed and no additional complaints, except as documented and Reports as per HPI Neurologic Neurologic: Reports system reviewed and no additional complaints, except as documented Endocrine Endocrine: Reports system reviewed and no additional complaints, except as documented Hematologic/Lymphatic Henatologic/Lymphatic: Reports system reviewed and no additional complaints, except as documented Allergic/Immunologic Allergic/Immunologic: Reports system reviewed and no additional complaints, except as documented Physical Exam General General appearance: alert and in no apparent distress Head Head exam: atraumatic Eye Eye exam: Present normal appearance and PERRL ENT ENT exam: Present normal exam Neck Neck exam: Present normal inspection Respiratory Respiratory exam: Present normal lung sounds bilaterally Cardiovascular Cardiovascular exam: Present regular rate and normal rhythm Expanded Lower Extremity Exam Left: Leg image: 1. SWELLING 2. HEELING INSCISON Neurological Exam Neurological exam: Present alert and oriented X3 Skin Skin exam: Present warm Lymphatic Lymphatic Findings: no adenopathy Medical Decision Making Medical Records Medical records reviewed: Yes I reviewed the patient's medical records. Cecil Inquiry Pt receiving controlled substance: No [place] was queried for this patient: No Vital Signs: 05/06/24 12:55 Temperature 98.8 F Temperature Source Oral Pulse Rate [Left Brachial] 78 Respiratory Rate 19 Blood Pressure [Left Arm] 122/66 Blood Pressure Mean [Left Arm] 84 Blood Pressure Source [Left Arm] Automatic Cuff Blood Pressure Position [Left Arm] Sitting 02 Sat by Pulse Oximetry 98 Oxygen Delivery Method Room Air Medical Decision Narrative: PT IS GOING TO BE DC AND COME BACK IN 1 HOUR WHEN CHIEF PROGRAM OFFICER GETS HERE TO DO VENOUS DOPPLER(SHE DOES NOT WANT TO WAIT) WILL FOLLOW UP DURING PROCEDURE.
--- NOTE | 2024-05-06 14:07 | CA_ITS ---
FINAL REPORT TECHNIQUE: Ultrasound images of the deep venous system were obtained from the left groin to the calf veins. CLINICAL HISTORY: R/O DVT, HTN,HLD, COPD, Left knee replacement in february, negative venous 03/05/24 COMPARISON: None FINDINGS: The deep venous system is normally compressible. Normal flow is identified. IMPRESSION: No evidence of left lower extremity DVT. Reviewed, Interpreted and Dictated by Josiah Russell MD Transcribed by Estrella Novak Authenticated and [facility]
[2024-05-06 14:20] VITALS: BP 122/66; PULSE 78; RESP 19; TEMP 37.1; O2SAT 98
== END 2024-05-06 14:26 | disposition home or self-care (01) ==
PROVIDERS: Emergency Provider Nurse Practitioner Family; PCP Internal Medicine Adolescent Medicine
DX: M79.662 Pain in left lower leg (principal); Z86.73 Personal history of transient ischemic attack (TIA), and cerebral infarction without residual deficits; Z79.01 Long term (current) use of anticoagulants; Z96.652 Presence of left artificial knee joint
CPT/HCPCS: 93971; 99212; 99214; G0463

== ENCOUNTER 2024-05-25 09:48 | Outpatient (CLI) | payer MEDICARE, MEDICAID, SELFPAY ==
[2024-05-25 12:02] LABS: Albumin Level 3.9 g/dl (3.5-5.0); Anion Gap 9.1 mEq/L (5-15); Blood Urea Nitrogen 31 mg/dl (7-17); Calcium 9.7 mg/dl (8.4-10.2); Carbon Dioxide 29 mmol/L (22.0-30.0); Chloride 106 mmol/L (98-107); Estimated Glomerular Filt Rate 40 ml/min (>60); GFR (African American) 48 ML/MIN (>60); Glucose 96 mg/dl (74-100); Phosphorous 4.4 mg/dl (2.5-4.5); Potassium 4.1 mmoL/L (3.5-5.1); Sodium 140 mmol/L (136-145)
== END 2024-05-25 23:59 | disposition home or self-care (01) ==
LOC: LAB 09:50
PROVIDERS: PCP Internal Medicine Adolescent Medicine; Visit Provider Nurse Practitioner
DX: N17.9 Acute kidney failure, unspecified (principal)
CPT/HCPCS: 36415; 80069

== ENCOUNTER 2024-06-22 10:00 | Outpatient (RCR) | payer MEDICARE, MEDICAID, SELFPAY | END 2024-06-22 23:59 | disposition home or self-care (01) | LOC: PT 10:00 | PROVIDERS: Visit Provider Orthopaedic Surgery | DX: M17.11 Unilateral primary osteoarthritis, right knee (principal); Z47.1 Aftercare following joint replacement surgery; Z96.652 Presence of left artificial knee joint | CPT/HCPCS: 97110; 97163; 97164 ==

== ENCOUNTER 2024-06-30 12:26 | Outpatient (CLI) | payer MEDICARE, MEDICAID, SELFPAY ==
[2024-06-30 12:52] LABS: Basophils # 0.1 K/mm3 (0-0.2); Basophils % 0.8 % (0.1-2.0); Eosinophils # 0.3 K/mm3 (0.0-0.4); Hematocrit 40.7 % (37.0-47.0); Hemoglobin 13.1 g/dL (12.2-16.2); Lymphocytes # 1.7 K/mm3 (0.7-4.5); Lymphocytes % 25.4 % (10-50); Mean Corpuscular HGB Conc 32.3 g/dL (31.8-35.4); Mean Corpuscular Hemoglobin 27.6 pg (27.0-31.2); Mean Corpuscular Volume 85.5 fl (81-99); Mean Platelet Volume 8.4 fl (7.4-10.4); Monocytes # 0.5 K/mm3 (0.1-1.0); Monocytes % 7.9 % (1.7-9.3); Neutrophils # 4.2 K/mm3 (1.8-7.8); Neutrophils % 60.9 % (37.0-80.0); Platelet Count 267 K/mm3 (142-424); Red Blood Count 4.76 M/mm3 (4.20-5.40); Red Cell Distribution Width 16.6 % (11.5-17.5); White Blood Count 6.8 K/mm3 (4.8-10.8)
[2024-06-30 13:29] LABS: Albumin Level 3.9 g/dl (3.5-5.0); Chloride 104 mmol/L (98-107); Potassium 4.1 mmoL/L (3.5-5.1); Sodium 136 mmol/L (136-145)
[2024-06-30 13:32] LABS: Alanine Aminotransferase 9 U/L (12-78); Albumin/Globulin Ratio 1.3 (1.1-1.8); Alkaline Phosphatase 125 U/L (38-126); Anion Gap 11.1 mEq/L (5-15); Aspartate Amino Transferase 32 U/L (14-36); Bilirubin,Total 0.4 mg/dl (0.2-1.3); Blood Urea Nitrogen 31 mg/dl (7-17); Calcium 9.7 mg/dl (8.4-10.2); Carbon Dioxide 25 mmol/L (22.0-30.0); Estimated Glomerular Filt Rate 27 ml/min (>60); GFR (African American) 33 ML/MIN (>60); Globulin 2.9 g/dL (1.3-3.2); Glucose 90 mg/dl (74-100); Total Protein,Serum 6.8 g/dl (6.3-8.2)
== END 2024-06-30 23:59 | disposition home or self-care (01) ==
LOC: LAB 12:27
PROVIDERS: PCP Internal Medicine Adolescent Medicine; Visit Provider Internal Medicine Adolescent Medicine
DX: Z00.00 Encounter for general adult medical examination without abnormal findings (principal); R07.89 Other chest pain; R10.84 Generalized abdominal pain; I10 Essential (primary) hypertension; E78.5 Hyperlipidemia, unspecified
CPT/HCPCS: 36415; 80053; 83735; 85025

== ENCOUNTER 2024-07-05 10:15 | Outpatient (CLI) | payer MEDICARE, MEDICAID, SELFPAY ==
--- NOTE | 2024-07-05 10:18 | MM_ITS ---
PROCEDURE INFORMATION: Exam: MG Bilateral Screening 3D Mammography Exam date and time: 07/05/2024 10:08 AM Age: 78 years old Clinical indication: Screening examination TECHNIQUE: Imaging protocol: Bilateral Screening tomosynthesis and 2D mammography including computer-aided detection (CAD) when performed. COMPARISON: 1. MG MM DIG SCREENING MAMM BI W/CAD 05/31/2023 11:12 AM 2. MG MM DIG MAMM DX UNILAT RT CAD 05/12/2022 1:36 PM FINDINGS: MAMMOGRAPHY: Breast composition: There are scattered areas of fibroglandular density. Mass: No suspicious masses. Architectural distortion: None. Calcifications: No suspicious calcifications. Asymmetric density: None. Skin thickening: None. Axillary adenopathy: None. IMPRESSION: No mammographic evidence of malignancy. Annual screening is recommended unless otherwise clinically indicated. ASSESSMENT: BI-RADS Category 1: Negative.
== END 2024-07-05 23:59 | disposition home or self-care (01) ==
PROVIDERS: PCP Internal Medicine Adolescent Medicine; Visit Provider Internal Medicine Adolescent Medicine
DX: Z12.31 Encounter for screening mammogram for malignant neoplasm of breast (principal)
CPT/HCPCS: 77063; 77067

== ENCOUNTER 2024-07-18 09:58 | Outpatient (CLI) | payer MEDICARE, MEDICAID, SELFPAY ==
--- NOTE | 2024-07-18 10:03 | CT_ITS ---
PROCEDURE INFORMATION: Exam: CT Abdomen And Pelvis Without Contrast Exam date and time: 07/18/2024 10:07 AM Age: 78 years old Clinical indication: Abdominal pain; Other: Abd pain , not specified TECHNIQUE: Imaging protocol: Computed tomography of the abdomen and pelvis without contrast. Radiation optimization: All CT scans at this facility use at least one of these dose optimization techniques: automated exposure control; mA and/or kV adjustment per patient size (includes targeted exams where dose is matched to clinical indication); or iterative reconstruction. COMPARISON: CT ABDOMEN PELVIS W CON 08/04/2023 10:15 PM FINDINGS: Liver: Normal. No mass. Gallbladder and biliary ducts: Normal. No calcified stones. No ductal dilation. Pancreas: Normal. No ductal dilation. Spleen: Normal. No splenomegaly. Adrenal glands: Normal. No mass. Kidneys and ureters: Normal. No hydronephrosis. Stomach and bowel: Unremarkable. No obstruction. No mucosal thickening. Appendix: No evidence of appendicitis. Intraperitoneal space: Unremarkable. No free air. No significant fluid collection. Vasculature: Vascular calcifications. Lymph nodes: Unremarkable. No enlarged lymph nodes. Urinary bladder: Unremarkable as visualized. Reproductive: Unremarkable as visualized. Bones/joints: Stable extensive spinal surgery. Soft tissues: Unremarkable. Other findings: The chest was discussed separate dictation. IMPRESSION: No acute findings.
--- NOTE | 2024-07-18 10:03 | CT_ITS ---
PROCEDURE INFORMATION: Exam: CT Chest Without Contrast; Diagnostic Exam date and time: 07/18/2024 10:07 AM Age: 78 years old Clinical indication: Other: Chest pain not specified; Additional info: Chest and abd pain TECHNIQUE: Imaging protocol: Diagnostic computed tomography of the chest without contrast. Radiation optimization: All CT scans at this facility use at least one of these dose optimization techniques: automated exposure control; mA and/or kV adjustment per patient size (includes targeted exams where dose is matched to clinical indication); or iterative reconstruction. COMPARISON: CT ANGIO CHEST PE PROTOCOL 03/03/2024 5:17 PM FINDINGS: Lungs: Stable right upper lobe granuloma. No infiltrates in the lungs with mild prominence peripheral bronchovascular markings in the lung apices. Questionable early interstitial lung disease. Pleural spaces: Unremarkable. No pneumothorax. No pleural effusion. Heart: Unremarkable. No cardiomegaly. No pericardial effusion. Coronary arteries: Possible coronary artery stent with mild coronary artery calcifications. Lymph nodes: Large calcified mediastinal and right hilar lymph nodes. Vasculature: Unremarkable. No aortic aneurysm. Intraperitoneal space: The abdomen and pelvis will be discussed in a separate examination. Stable spinal fixation. The abdomen and pelvis will be discussed on a separate examination. Bones/joints: Right shoulder replacement. Soft tissues: Loop recorder. IMPRESSION: 1. No focal infiltrates or abnormal masses. Possible early interstitial disease. 2. Sequelae of granulomatous disease.
== END 2024-07-18 23:59 | disposition home or self-care (01) ==
LOC: RAD 09:59
PROVIDERS: PCP Internal Medicine Adolescent Medicine; Visit Provider Internal Medicine Adolescent Medicine
DX: R07.89 Other chest pain (principal); R10.84 Generalized abdominal pain
CPT/HCPCS: 71250; 74176

== ENCOUNTER 2024-08-27 11:02 | Emergency (ER) | payer MEDICARE, MEDICAID, SELFPAY ==
[2024-08-27] VITALS (8 sets, daily range): BP systolic 115–158; BP diastolic 65–96; PULSE 63–81; RESP 16–18; TEMP 36.6–36.9; O2SAT 95–97; BMI 36.6
--- NOTE | 2024-08-27 11:04 | HMH.EDGENADL ---
Discharge Plan Disposition Patient Disposition: Home, Self-Care Condition: Good Prescriptions Prescriptions: New prednisone 20 mg tablet 40 mg PO DAILY 5 Days Qty: 10 0RF albuterol sulfate 90 mcg/actuation aerosol powdr breath activated 1 inh inhalation Q6H PRN (Reason: shortness of breath or wheezing) Qty: 1 0RF azithromycin 250 mg tablet See Rx Instructions .ROUTE .COMPLEX Qty: 6 0RF Rx Instructions: For 250 mg dose pack: take 500 mg today (day 1), then 250 mg for 4 days (days 2-5) lidocaine HCl [Lidocaine Viscous] 2 % solution 1 applic mucous membrane Q12H PRN (Reason: pain) Qty: 100 0RF No Action oxybutynin chloride 10 mg tablet extended release 24hr PO Patient Comments: TAKE ONE TABLET BY MOUTH EVERY DAY famotidine 40 mg tablet PO pantoprazole 40 mg tablet,delayed release (DR/EC) PO Patient Comments: TAKE ONE TABLET BY MOUTH EVERY DAY metoclopramide HCl [Reglan] 5 mg tablet 5 mg PO BID Qty: 60 5RF Rx Instructions: administer 30 minutes before meals omeprazole 40 mg capsule,delayed release(DR/EC) 40 mg PO DAILY ascorbic acid (vitamin C) [Vitamin C] 500 mg tablet 500 mg PO DAILY Patient Comments: TAKE 1 TABLET BY MOUTH EVERY DAY prednisone 5 mg tablet 5 mg PO DIRECTED hydrocodone-acetaminophen 7.5-325 mg tablet PO Patient Comments: TAKE ONE TABLET BY MOUTH EVERY 6 HOURS NEEDED MAY CAUSE DROWSINESS bumetanide 1 mg tablet See Rx Instructions .ROUTE .COMPLEX Qty: 90 3RF Dose Instruction: TAKE THREE TABLETS BY MOUTH EVERY DAY FOR fluid Rx Instructions: TAKE THREE TABLETS BY MOUTH EVERY DAY FOR fluid carvedilol 6.25 mg tablet 6.25 mg PO BID Patient Comments: TAKE ONE TABLET BY MOUTH TWICE DAILY donepezil 10 mg tablet 10 mg PO HS Patient Comments: TAKE ONE TABLET BY MOUTH EVERY DAY AT BEDTIME clopidogrel 75 mg tablet 75 mg PO DAILY Patient Comments: TAKE ONE TABLET BY MOUTH EVERY DAY chlorthalidone 25 mg tablet 25 mg PO DAILY Patient Comments: TAKE ONE TABLET BY MOUTH EVERY DAY allopurinol 100 mg tablet 100 mg PO DAILY Patient Comments: TAKE ONE TABLET BY MOUTH EVERY DAY bupropion HCl 100 mg tablet 100 mg PO DAILY Patient Comments: TAKE ONE TABLET BY MOUTH EVERY MORNING AND TAKE TWO TABLETS BY MOUTH EVERY DAY AT BEDTIME potassium chloride 20 mEq tablet,ER particles/crystals 20 meq PO BID Patient Comments: TAKE ONE TABLET BY MOUTH TWICE DAILY primidone 250 mg tablet 250 mg PO HS Patient Comments: TAKE ONE TABLET BY MOUTH EVERY NIGHT DIRECTED meclizine 25 mg tablet 25 mg PO TIDP PRN (Reason: Vertigo) Patient Comments: TAKE ONE TABLET BY MOUTH THREE TIMES DAILY NEEDED methimazole 5 mg tablet 5 mg PO TID Patient Comments: TAKE ONE TABLET BY MOUTH EVERY 8 HOURS gabapentin 300 mg capsule 300 mg PO 5XDAY dorzolamide-timolol 22.3-6.8 mg/mL drops 1 drp Eye-Both BID montelukast 10 mg tablet 10 mg PO PM Patient Comments: TAKE ONE TABLET BY MOUTH EVERY DAY carbidopa-levodopa 25-100 mg tablet 1 tab PO TID Patient Comments: TAKE ONE TABLET BY MOUTH THREE TIMES DAILY may take with OR without food fluticasone propionate 50 mcg/actuation spray,suspension 1 spray INTRANASAL DAILYP PRN (Reason: Allergy Symptoms) Patient Comments: instill 1-2 [place](s) IN EACH NOSTRIL EVERY DAY DIRECTED memantine 10 mg tablet 10 mg PO BID Patient Comments: TAKE ONE TABLET BY MOUTH TWICE DAILY cholecalciferol (vitamin D3) 25 mcg (1,000 unit) tablet 25 mcg PO BID Patient Comments: TAKE ONE TABLET BY MOUTH TWICE DAILY bupropion HCl 100 mg tablet 200 mg PO HS Patient Comments: TAKE ONE TABLET BY MOUTH EVERY MORNING AND TAKE TWO TABLETS BY MOUTH EVERY DAY AT BEDTIME cetirizine 10 mg Tablet 10 mg PO DAILY aspirin 81 mg Tablet,Delayed Release (Dr/Ec) 81 mg PO DAILY rosuvastatin 20 mg Tablet 20 mg PO HS Jardiance 25 mg Tablet 25 mg PO DAILY colchicine [Mitigare] 0.6 mg Capsule 0.6 mg PO DAILY albuterol sulfate 90 mcg/actuation HFA aerosol inhaler 2 puff INHALATION Q4HP PRN (Reason: Shortness Of Breath) Patient Comments: INHALE TWO PUFFS BY MOUTH EVERY 4 HOURS NEEDED FOR wheezing lidocaine 5 % adhesive patch,medicated 1 - 2 patch transdermal DAILY Patient Comments: APPLY 1-2 PATCHES TOPICALLY TO THE AFFECTED AREA ONCE DAILY AND LEAVE IN PLACE FOR 12 HOURS, THEN REMOVE AND LEAVE OFF FOR 12 HOURS docusate sodium 100 mg capsule 100 mg PO BID Patient Comments: TAKE ONE CAPSULE BY MOUTH TWICE DAILY Benlysta 200 mg/mL auto-injector 200 mg SQ DIRECTED hydrocodone-acetaminophen 5-325 mg tablet 1 tab PO Q4HP PRN (Reason: Moderate Pain (Scale Score 5-6)) magnesium oxide 400 mg (241.3 mg magnesium) Tablet 400 mg PO DAILY 30 Days Qty: 30 0RF Referrals Follow up/Referrals: Provider,Referral, MD [Referring] - See instructions Activity Restrictions/Add. Instructions Additional Instructions/Restrictions: Use your albuterol inhaler 4 puffs every 4 hours for the next 2 days scheduled, then 2 puffs as needed for shortness of breath. Please follow up with your primary care provider in 2-3 days. Please return to ED if your symptoms worsen, change in location, change in severity, new symptoms develop or if you become concerned for your health. Clinical Impressions Clinical Impression: Shortness of breath, Acute viral syndrome Print Language Print Language: Sudanese Discharge ED Provider: Jerson Velázquez Adult HPI General Chief complaint: Weakness Stated complaint: congested, cough, weakness Time Seen by Provider: 08/27/24 11:04 History of Present Illness HPI narrative: Patient is a 78-year-old female with history of hypertension, hyperlipidemia, CKD, CHF, CAD, pulmonary hypertension, COPD, not on any oxygen. She presents today for cough, congestion, wheezing that began on Wednesday, and has been worsening. She visited her PCP on Wednesday who told her to start an amoxicillin prescription on . She started that and is still not had any relief. She reports generalized malaise and generalized weakness without any focal symptoms. She has been trying her albuterol rescue inhaler at home with some relief regarding the wheezing, but still feeling that she cannot get a deep breath. She does have a history of heart failure and has been taking her Bumex as prescribed and urinating appropriately, no worsening lower extremity edema. She does note positive sick contacts with her granddaughter who was sick last week with similar symptoms. She endorses some tension headaches that resolved with Tylenol. Denies any vision changes, focal numbness weakness tingling. Denies abdominal pain, nausea, vomiting, diarrhea, but has been tolerating a little bit less oral intake than usual. Endorses subjective fevers Related Data Home Medications ?Medication ?Instructions ?Recorded ?Confirmed allopurinol 100 mg tablet 100 mg PO DAILY 04/10/23 08/22/24 bupropion HCl 100 mg tablet 100 mg PO DAILY 04/10/23 08/22/24 bupropion HCl 100 mg tablet 200 mg PO HS 04/10/23 08/22/24 carbidopa 25 mg-levodopa 100 mg 1 tab PO TID 04/10/23 08/22/24 tablet carvedilol 6.25 mg tablet 6.25 mg PO BID 04/10/23 08/22/24 chlorthalidone 25 mg tablet 25 mg PO DAILY 04/10/23 08/22/24 cholecalciferol (vitamin D3) 25 25 mcg PO BID 04/10/23 08/22/24 mcg (1,000 unit) tablet clopidogrel 75 mg tablet 75 mg PO DAILY 04/10/23 08/22/24 donepezil 10 mg tablet 10 mg PO HS 04/10/23 08/22/24 dorzolamide 22.3 mg-timolol 6.8 1 drp Eye-Both BID 04/10/23 08/22/24 mg/mL eye drops fluticasone propionate 50 1 spray intranasal DAILYP PRN 04/10/23 08/22/24 mcg/actuation nasal Allergy Symptoms spray,suspension gabapentin 300 mg capsule 300 mg PO 5XDAY Neuropathy 04/10/23 08/22/24 meclizine 25 mg tablet 25 mg PO TIDP PRN Vertigo 04/10/23 08/22/24 memantine 10 mg tablet 10 mg PO BID 04/10/23 08/22/24 methimazole 5 mg tablet 5 mg PO TID 04/10/23 08/22/24 montelukast 10 mg tablet 10 mg PO PM 04/10/23 08/22/24 potassium chloride 20 mEq 20 meq PO BID 04/10/23 08/22/24 tablet,extended release(part/cryst) primidone 250 mg tablet 250 mg PO HS 04/10/23 08/22/24 albuterol sulfate 90 mcg/actuation 2 puff inhalation Q4HP PRN 06/28/23 08/22/24 aerosol inhaler Shortness Of Breath aspirin 81 mg tablet,delayed 81 mg PO DAILY 06/28/23 08/22/24 release cetirizine 10 mg tablet 10 mg PO DAILY 06/28/23 08/22/24 colchicine 0.6 mg capsule 0.6 mg PO DAILY 06/28/23 08/22/24 (Mitigare) empagliflozin 25 mg tablet 25 mg PO DAILY 06/28/23 08/22/24 (Jardiance) rosuvastatin 20 mg tablet 20 mg PO HS 06/28/23 08/22/24 ascorbic acid (vitamin C) 500 mg 500 mg PO DAILY 10/28/23 08/22/24 tablet (Vitamin C) omeprazole 40 mg capsule,delayed 40 mg PO DAILY 10/28/23 08/22/24 release prednisone 5 mg tablet 5 mg PO DIRECTED 12/22/23 08/22/24 belimumab 200 mg/mL subcutaneous 200 mg SQ DIRECTED 03/04/24 08/22/24 auto-injector (Benlysta) docusate sodium 100 mg capsule 100 mg PO BID 03/04/24 08/22/24 hydrocodone 5 mg-acetaminophen 325 1 tab PO Q4HP PRN Moderate Pain 03/04/24 08/22/24 mg tablet (Scale Score 5-6) lidocaine 5 % topical patch 1 - 2 patch transdermal DAILY 03/04/24 08/22/24 hydrocodone 7.5 mg-acetaminophen tab PO 03/21/24 08/22/24 325 mg tablet famotidine 40 mg tablet mg PO 08/22/24 08/22/24 oxybutynin chloride 10 mg mg PO 08/22/24 08/22/24 tablet,extended release 24 hr pantoprazole 40 mg tablet,delayed mg PO 08/22/24 08/22/24 release Previous Rx's ?Medication ?Instructions ?Recorded magnesium oxide 400 mg (241.3 mg 400 mg PO DAILY 30 days #30 tabs 03/07/24 magnesium) tablet bumetanide 1 mg tablet See Rx Instructions .Route 03/13/24 .COMPLEX #90 tabs metoclopramide HCl 5 mg tablet 5 mg PO BID #60 tabs 08/22/24 (Reglan) albuterol sulfate 90 mcg/actuation 1 inh inhalation Q6H PRN shortness 08/27/24 breath activated powder inhaler of breath or wheezing #1 ea azithromycin 250 mg tablet See Rx Instructions PO .COMPLEX #6 08/27/24 tabs lidocaine HCl 2 % mucosal solution 1 applic mucous membrane Q12H PRN 08/27/24 (Lidocaine Viscous) pain #100 mL prednisone 20 mg tablet 40 mg (2 x 20 mg) PO DAILY 5 days 08/27/24 #10 tabs Allergies Allergy/AdvReac Type Severity Reaction Status Date / Time prochlorperazine Allergy Intermediate HALLUCINATI Verified 08/22/24 12:04 (PROCHLORPERAZINE) ONS oxycodone (OXYCODONE) Allergy Unknown HALLUCINATI Verified 08/22/24 12:04 ONS ibuprofen (IBUPROFEN) AdvReac Unknown PT HAS Verified 08/22/24 12:04 RENAL FAILURE PFSH [facility] Disclaimer: The information contained in this section may have been updated after the patient was seen, as this information can be updated by other users. 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 (Updated 08/27/24 @ 14:56 by Jerson Velázquez MD) Tinnitus SNHL (sensorineural hearing loss) Chronic eustachian tube dysfunction CAD in [place] artery Syncope Bilateral carotid artery disease Lymphedema Angina pectoris History of COVID-19 COPD (chronic obstructive pulmonary disease) Systemic lupus Hypothyroid Difficulty swallowing Unstable angina Cataract Renal disease PVD (peripheral vascular disease) Palpitations HTN (hypertension), benign Heart murmur HLD (hyperlipidemia) GERD (gastroesophageal reflux disease) DVT (deep venous thrombosis) Peripheral arterial disease Right carotid bruit Carotid bruit Edema Diastolic dysfunction HHD (hypertensive heart disease) Surgical History History of colonoscopy H/O tubal ligation H/O rotator cuff surgery History of back surgery Cataract extraction status, right eye Family History Other Alcoholism Anemia Cancer Coronary artery disease FHx: mental illness Heart attack Hyperlipidemia Hypertension Kidney disease Substance abuse Tuberculosis 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 Smoking Status: Former smoker tobacco type: cigarettes alcohol intake: former substance use type: denies use current occupational status: retired and disabled Travel in the last 8 weeks: None household members: children current occupational exposures/hazards: No Other 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 Have you received the Flu Vaccine for this season: No Have you received the Pneumonia Vaccine: Yes ROS Obtained: Yes All systems reviewed & no additional complaints except as documented Physical Exam General General appearance: alert and in no apparent distress Head Head exam: atraumatic and normocephalic Eye Eye exam: Present PERRL and EOMI ENT ENT exam: Present normal oropharynx Neck Neck exam: Present full ROM and trachea midline Chest Chest inspection: Present symmetric chest wall rise Respiratory Respiratory exam: Present normal lung sounds bilaterally, wheezes (expiratory diffusely) and prolonged expiratory phase; Absent respiratory distress, stridor or accessory muscle use Cardiovascular Cardiovascular exam: Present regular rate and normal rhythm Abdominal Exam Abdominal exam: Present soft; Absent distention or tenderness Extremities Exam Extremities exam: Present full ROM, normal capillary refill and edema (BLE 2+) Neurological Exam Neurological exam: Present alert and oriented X3 Psychiatric Psychiatric exam: Present normal mood Skin Skin exam: Present warm and dry Medical Decision Making Medical Records Screening: Per USPSTF and CDC recommendations, given the prevalence of disease in our region, it is our hospital?s policy to screen for HIV and viral Hepatitis for all patients aged 18 and over and those with ongoing risk factors. [place] Inquiry Pt receiving controlled substance: No Vital Signs: 08/27/24 11:04 08/27/24 12:00 08/27/24 12:30 Temperature 98.5 F Temperature Source Oral Pulse Rate 63 71 Pulse Rate [Left Radial] 80 Respiratory Rate 16 Blood Pressure 154/68 H 142/70 H Blood Pressure [Right Arm] 148/65 H Blood Pressure Mean 93 94 Blood Pressure Mean [Right Arm] 92 02 Sat by Pulse Oximetry 95 97 96 Oxygen Delivery Method Room Air Room Air 08/27/24 13:00 08/27/24 13:30 08/27/24 14:03 Temperature Temperature Source Pulse Rate 70 71 81 Pulse Rate [Left Radial] Respiratory Rate 18 Blood Pressure 148/70 H 158/77 H 116/96 H Blood Pressure [Right Arm] Blood Pressure Mean 99 Blood Pressure Mean [Right Arm] 02 Sat by Pulse Oximetry 95 97 95 Oxygen Delivery Method Room Air Room Air 08/27/24 15:02 08/27/24 15:08 Temperature 97.8 F Temperature Source Oral Pulse Rate 78 78 Pulse Rate [Left Radial] Respiratory Rate 18 Blood Pressure 115/94 H 117/94 H Blood Pressure [Right Arm] Blood Pressure Mean 99 Blood Pressure Mean [Right Arm] 02 Sat by Pulse Oximetry 96 Oxygen Delivery Method Room Air Room Air Lab Data Lab Results 08/27/24 11:33: SARS-CoV-2 (PCR) Not detected, Influenza A Untype (PCR) Not detected, Influenza Type B (PCR) Not detected 08/27/24 11:50: WBC 4.6 L, RBC 4.52, Hgb 12.4, Hct 39.8, MCV 88.1, MCH 27.3, MCHC 31.0 L, RDW 17.3, Plt Count 220, MPV 7.8, Neut % (Auto) 49.1, Lymph % (Auto) 36.0, [place] % (Auto) 7.6, Eos % (Auto) 6.2, Baso % (Auto) 1.0, Neut # (Auto) 2.3, Lymph # (Auto) 1.7, [place] # (Auto) 0.4, Eos # (Auto) 0.3, Baso # (Auto) 0.1, Sodium 136, Potassium 3.8, Chloride 104, Carbon Dioxide 28, Anion Gap 7.8, BUN 28 H, Creatinine 1.60 H, Estimated Creat Clear 43, Estimated GFR 31 L, Est GFR ( Amer) 38 L, Glucose 91, Calcium 9.0, Phosphorus 3.6, Magnesium 2.2, Total Bilirubin 0.4, AST 38 H, ALT 10 L, Alkaline Phosphatase 132 H, Troponin I < 0.01, NT-Pro-B Natriuret Pep 199, Total Protein 6.7, Albumin 3.8, Globulin 2.9, Albumin/Globulin Ratio 1.3, Procalcitonin 0.060, HIV 1&2 Antibody Rapid Nonreactive 08/27/24 11:50 08/27/24 11:50 Orders (Tests/Meds): ED MEDICATIONS Discontinued Medications Generic Name Dose Route Start Last Admin Trade Name Freq PRN Reason Stop Dose Admin Acetaminophen 1,000 mg 08/27/24 11:25 08/27/24 11:33 Acetaminophen 500mg Tab PO 08/27/24 11:26 1,000 mg ONCE ONE Administration Albuterol/Ipratropium 9 ml 08/27/24 11:25 08/27/24 11:33 Ipratropium/Albuterol 3 Ml Neb IH 08/27/24 11:26 9 ml ONCE ONE Administration Methylprednisolone Sodium Succinate 80 mg 08/27/24 11:25 08/27/24 11:33 Methylprednisolone Sod Succ 125mg Vial IV 08/27/24 11:26 80 mg ONCE ONE Administration ORDERS Category Date Time Status XR chest portable Stat Exams 08/27/24 11:25 Completed Complete Blood Count Auto Diff Stat Lab 08/27/24 11:50 Completed Comprehensive Metabolic Panel Stat Lab 08/27/24 11:50 Completed HIV (1&2) Antibody Rapid Stat Lab 08/27/24 11:50 Completed Hep C Ab with Reflex to RNA Stat Lab 08/27/24 11:50 Received Magnesium Stat Lab 08/27/24 11:50 Completed NT Pro Brain Natriuretic Pep. Stat Lab 08/27/24 11:50 Completed Phosphorous Stat Lab 08/27/24 11:50 Completed Procalcitonin Stat Lab 08/27/24 11:50 Completed Rapid PCR Covid and Flu A/B Stat Lab 08/27/24 11:33 Completed Troponin I Stat Lab 08/27/24 11:50 Completed Medical Decision Narrative: In summary, this 78-year-old female presents to the emergency department today with cough, congestion, wheezing, shortness of breath. On initial evaluation patient is afebrile, hemodynamically stable and in no acute distress saturating well on room air. On exam, she is warm and well-perfused with full pulses in bilateral upper extremities. Brisk cap refill. Moist mucous membranes. Grossly neurovascularly intact. Heart is regular rate and rhythm, lung sounds demonstrate wheezing expiratory with a prolonged expiratory phase.. Differential diagnosis includes but is not limited to COPD exacerbation, viral syndrome, pneumonia, electrolyte disturbance, ACS, VT, heart failure. Based on these concerns, I ordered CBC, CMP, magnesium, phosphorus, troponin, BNP, chest x-ray, Pro-Bald[place]ar. I reviewed prior records including previous admission in September for hyponatremia and adjustment of her diuretics due to dehydration. ECG personally interpreted demonstrates normal sinus rhythm with no acute ischemic ST changes, intervals within normal limits.. Patient received Solu-Medrol, DuoNebs x 3, Tylenol for treatment. Labs personally reviewed demonstrate no leukocytosis, COVID, flu negative. Negative troponin. BNP wnl. XR personally interpreted demonstrates stable cardiomegaly and mild pulmonary vascular congestion no effusions. On reassessment pt reports improvement in symptoms. Will send with prednisone burst, ZPak and albuterol refill for suspected COPD exacerbation and viral syndrome. Will also send with viscous lidocaine for sore throat. Admission as considered and given pt is ambulatory, satting well and moving air comfortably on reassessment, risks outweigh benefits so was deferred. Of note, social determinants of health include poor health literacy. At this time it was felt that the patient was safe to be discharged home. The patient was in agreement with this plan. The patient was given strict return precautions prior to being discharged from the emergency department. Critical Care Critical Care Time Critical Care Time: No
--- NOTE | 2024-08-27 11:25 | XR_ITS ---
PROCEDURE INFORMATION: Exam: XR Chest Exam date and time: 08/27/2024 11:27 AM Age: 78 years old Clinical indication: Shortness of breath; Additional info: SOB TECHNIQUE: Imaging protocol: Radiologic exam of the chest. Views: 1 view. COMPARISON: 1. CT CHEST WO CON 07/18/2024 10:07 AM 2. CR XR CHEST PORTABLE 03/09/2023 1:05 PM FINDINGS: Tubes, catheters and devices: Cardiac device over the left mid chest. Lungs: Hypoaeration of the lungs. Hazy increased density in the left peripheral mid/lower lung favored to be secondary to overlying chest tissues. No pulmonary edema or consolidation. Small calcified granuloma in the right mid lung. Pleural spaces: No pleural effusion. No pneumothorax. Heart/Mediastinum: Cardiomediastinal silhouette is normal. Aortic calcifications. Calcified mediastinal/hilar lymph nodes. Bones/joints: No acute abnormality. Right shoulder reverse arthroplasty and thoracolumbar spinal fusion again demonstrated. IMPRESSION: Hazy increased density in the left peripheral mid/lower lung favored to be secondary to overlying chest tissues. No pulmonary edema or consolidation.
[2024-08-27] MEDS: ACETAMINOPHEN 500MG TAB 1000 MG PO (11:33)
[2024-08-27] MEDS: METHYLPREDNISOLONE SOD SUCC 125MG VIAL 80 MG IV (11:33)
[2024-08-27] MEDS: IPRATROPIUM/ALBUTEROL 3 ML NEB 9 ML IH (11:33)
--- NOTE | 2024-08-27 11:37 | ECG_ITS ---
APPROVED REPORT Exam: Resting ECG HR:69 bpm ECG Measurements Heart Rate 69 AXES NJ 152 P 67 QRSd 90 QRS 67 QT 366 T 89 QTc 385 Conclusion SINUS RHYTHM POSSIBLE LEFT ATRIAL ENLARGEMENT [-0.1mV P-WAVE IN V1/V2] SEPTAL MYOCARDIAL INFARCTION , OF INDETERMINATE AGE [40+ ms Q WAVE IN V1/V2] ABNORMAL ECG Electronically signed by : Jerson Velázquez, 08/27/2024 16:24:06
--- NOTE | 2024-08-27 11:38 | PC.NURSE ---
portable chest xray at bedside
[2024-08-27 11:42] LABS: Coronavirus 19, PCR Not Detected (NotDetected); Influenza A, PCR Not Detected (NotDetected); Influenza B, PCR Not Detected (NotDetected)
[2024-08-27 12:02] LABS: Basophils # 0.1 K/mm3 (0-0.2); Eosinophils # 0.3 K/mm3 (0.0-0.4); Eosinophils % 6.2 % (0.1-12.0); Hematocrit 39.8 % (37.0-47.0); Hemoglobin 12.4 g/dL (12.2-16.2); Lymphocytes # 1.7 K/mm3 (0.7-4.5); Mean Corpuscular Hemoglobin 27.3 pg (27.0-31.2); Mean Corpuscular Volume 88.1 fl (81-99); Mean Platelet Volume 7.8 fl (7.4-10.4); Monocytes # 0.4 K/mm3 (0.1-1.0); Monocytes % 7.6 % (1.7-9.3); Neutrophils # 2.3 K/mm3 (1.8-7.8); Neutrophils % 49.1 % (37.0-80.0); Platelet Count 220 K/mm3 (142-424); Red Blood Count 4.52 M/mm3 (4.20-5.40); Red Cell Distribution Width 17.3 % (11.5-17.5); White Blood Count 4.6 K/mm3 (4.8-10.8)
[2024-08-27 13:02] LABS: Albumin Level 3.8 g/dl (3.5-5.0); Chloride 104 mmol/L (98-107); Sodium 136 mmol/L (136-145)
[2024-08-27 13:03] LABS: Potassium 3.8 mmoL/L (3.5-5.1)
[2024-08-27 13:05] LABS: Alanine Aminotransferase 10 U/L (12-78); Albumin/Globulin Ratio 1.3 (1.1-1.8); Alkaline Phosphatase 132 U/L (38-126); Anion Gap 7.8 mEq/L (5-15); Aspartate Amino Transferase 38 U/L (14-36); Bilirubin,Total 0.4 mg/dl (0.2-1.3); Blood Urea Nitrogen 28 mg/dl (7-17); Carbon Dioxide 28 mmol/L (22.0-30.0); Creatinine Clearance Estimated 43 mL/min (50-200); Estimated Glomerular Filt Rate 31 ml/min (>60); GFR (African American) 38 ML/MIN (>60); Globulin 2.9 g/dL (1.3-3.2); Phosphorous 3.6 mg/dl (2.5-4.5); Total Protein,Serum 6.7 g/dl (6.3-8.2)
[2024-08-27 13:06] LABS: Glucose 91 mg/dl (74-100); Magnesium 2.2 mg/dl (1.6-2.3)
[2024-08-27 13:30] LABS: Troponin I < 0.01 ng/ml (0.00-0.034)
[2024-08-27 13:52] LABS: NT Pro Brain Natriuretic Pep. 199 pg/mL (0-450)
[2024-08-27 16:15] LABS: HIV (1&2) Antibody Rapid NONREACTIVE (NONREACTIVE)
[2024-08-29 11:16] LABS: HCV Ab Non Reactive (Non Reactive)
== END 2024-08-27 15:10 | disposition home or self-care (01) ==
PROVIDERS: Emergency Provider Emergency Medicine; PCP Internal Medicine Adolescent Medicine
DX: B34.9 Viral infection, unspecified (principal); R06.02 Shortness of breath; R05.9 Cough, unspecified; R09.81 Nasal congestion; R06.2 Wheezing; R53.1 Weakness; R53.81 Other malaise
CPT/HCPCS: 71045; 80053; 83735; 83880; 84100; 84145; 84484; 85025; 86803; 87389; 87636; 93005; 96374; 99284; J2919; J7620

== ENCOUNTER 2024-09-02 12:28 | Emergency (ER) | payer MEDICARE, MEDICAID, SELFPAY ==
[2024-09-02] VITALS (10 sets, daily range): BP systolic 141–178; BP diastolic 55–73; PULSE 70–89; RESP 15–18; TEMP 36.9; O2SAT 95–99; BMI 37.5
--- NOTE | 2024-09-02 12:39 | XR_ITS ---
PROCEDURE INFORMATION: Exam: XR Right Ankle Exam date and time: 09/02/2024 12:36 PM Age: 78 years old Clinical indication: Pain; Ankle; Right; Additional info: [place] TECHNIQUE: Imaging protocol: Radiologic exam of the right ankle. Views: 3 or more views. COMPARISON: CR XR FOOT WT BEARING RT 3V 12/04/2019 2:37 PM FINDINGS: Bones/joints: Osseous structures are intact. No fracture or malalignment. Visualized joint surfaces are preserved. Soft tissues: Difficult to assess due to body habitus. There appears to be soft tissue swelling lateral to the lateral malleolus. IMPRESSION: Soft tissue swelling lateral malleolus. No acute bony abnormalities.
--- NOTE | 2024-09-02 12:39 | XR_ITS ---
PROCEDURE INFORMATION: Exam: XR Right Knee Exam date and time: 09/02/2024 12:36 PM Age: 78 years old Clinical indication: Pain; Knee; Right; Additional info: [place] pop TECHNIQUE: Imaging protocol: Radiologic exam of the right knee. Views: 3 views. COMPARISON: CR XR KNEE RT 3V 09/02/2024 12:36 PM FINDINGS: Bones/joints: Moderate-advanced degenerative changes lateral knee compartment with joint space narrowing, subchondral sclerosis and marginal spurring. Less pronounced degenerative changes of the medial knee compartment. No evidence of fracture or dislocation. Soft tissues: Small joint effusion. IMPRESSION: Degenerative changes most pronounced lateral knee compartment with small accompanying joint effusion.
--- NOTE | 2024-09-02 12:41 | XR_ITS ---
PROCEDURE INFORMATION: Exam: XR Right Hip Exam date and time: 09/02/2024 12:46 PM Age: 78 years old Clinical indication: Hip pain; Right hip TECHNIQUE: Imaging protocol: Radiologic exam of the right hip. Views: 2 or 3 views hip with pelvis when performed. COMPARISON: CR XR HIP RT 2-3V W/PELVIS 09/02/2024 12:46 PM FINDINGS: Tubes, catheters and devices: Extensive spinal instrumentation of the lumbar spine with additional syndesmotic screws placed across the SI joints. Remaining osseous structures are unremarkable. Bones/joints: Mild degenerative changes both hip joints. No acute bony abnormalities. Soft tissues: Unremarkable. IMPRESSION: No acute bony abnormalities.
--- NOTE | 2024-09-02 12:41 | XR_ITS ---
PROCEDURE INFORMATION: Exam: XR Right Tibia and Fibula Exam date and time: 09/02/2024 12:48 PM Age: 78 years old Clinical indication: Pain; Lower leg; Right TECHNIQUE: Imaging protocol: Radiologic exam of the right tibia and fibula. Views: 2 views. COMPARISON: CR XR ANKLE RT MIN 3V 09/02/2024 12:36 PM FINDINGS: Bones/joints: Osseous structures are intact. No fracture or malalignment. No deformity underlying bone lesion. Soft tissues: Soft tissue swelling adjacent to the lateral malleolus.. IMPRESSION: No acute bony abnormalities.
--- NOTE | 2024-09-02 12:41 | XR_ITS ---
PROCEDURE INFORMATION: Exam: XR Right Femur Exam date and time: 09/02/2024 12:47 PM Age: 78 years old Clinical indication: Pain; Thigh; Right TECHNIQUE: Imaging protocol: Radiologic exam of the right femur. Views: 2 views. COMPARISON: CR XR HIP RT 2-3V W/PELVIS 09/02/2024 12:46 PM FINDINGS: Bones/joints: Unremarkable. No fracture, malalignment or deformity detected. No underlying osseous lesion detected. Soft tissues: Unremarkable. IMPRESSION: Normal exam.
--- NOTE | 2024-09-02 12:45 | ED_ITS ---
<Statement entered by Shayy Gonzalez DO - 09/02/24 15:52> I was consulted by the CARRIE, and we discussed the complexity of the problems being addressed. I approved the treatment and management plan for this patient's care in the emergency department, thus performing a substantive portion of the medical decision making. Shayy Gonzalez DO Discharge Plan Disposition Patient Disposition: Home, Self-Care Condition: Good Prescriptions Prescriptions: New hydrocodone-acetaminophen 5-325 mg tablet 1 tab PO Q8H PRN (Reason: pain) Qty: 6 0RF No Action oxybutynin chloride 10 mg tablet extended release 24hr PO Patient Comments: TAKE ONE TABLET BY MOUTH EVERY DAY famotidine 40 mg tablet PO pantoprazole 40 mg tablet,delayed release (DR/EC) PO Patient Comments: TAKE ONE TABLET BY MOUTH EVERY DAY metoclopramide HCl [Reglan] 5 mg tablet 5 mg PO BID Qty: 60 5RF Rx Instructions: administer 30 minutes before meals omeprazole 40 mg capsule,delayed release(DR/EC) 40 mg PO DAILY ascorbic acid (vitamin C) [Vitamin C] 500 mg tablet 500 mg PO DAILY Patient Comments: TAKE 1 TABLET BY MOUTH EVERY DAY prednisone 5 mg tablet 5 mg PO DIRECTED hydrocodone-acetaminophen 7.5-325 mg tablet PO Patient Comments: TAKE ONE TABLET BY MOUTH EVERY 6 HOURS NEEDED MAY CAUSE DROWSINESS bumetanide 1 mg tablet See Rx Instructions .ROUTE .COMPLEX Qty: 90 3RF Dose Instruction: TAKE THREE TABLETS BY MOUTH EVERY DAY FOR fluid Rx Instructions: TAKE THREE TABLETS BY MOUTH EVERY DAY FOR fluid carvedilol 6.25 mg tablet 6.25 mg PO BID Patient Comments: TAKE ONE TABLET BY MOUTH TWICE DAILY donepezil 10 mg tablet 10 mg PO HS Patient Comments: TAKE ONE TABLET BY MOUTH EVERY DAY AT BEDTIME clopidogrel 75 mg tablet 75 mg PO DAILY Patient Comments: TAKE ONE TABLET BY MOUTH EVERY DAY chlorthalidone 25 mg tablet 25 mg PO DAILY Patient Comments: TAKE ONE TABLET BY MOUTH EVERY DAY allopurinol 100 mg tablet 100 mg PO DAILY Patient Comments: TAKE ONE TABLET BY MOUTH EVERY DAY bupropion HCl 100 mg tablet 100 mg PO DAILY Patient Comments: TAKE ONE TABLET BY MOUTH EVERY MORNING AND TAKE TWO TABLETS BY MOUTH EVERY DAY AT BEDTIME potassium chloride 20 mEq tablet,ER particles/crystals 20 meq PO BID Patient Comments: TAKE ONE TABLET BY MOUTH TWICE DAILY primidone 250 mg tablet 250 mg PO HS Patient Comments: TAKE ONE TABLET BY MOUTH EVERY NIGHT DIRECTED meclizine 25 mg tablet 25 mg PO TIDP PRN (Reason: Vertigo) Patient Comments: TAKE ONE TABLET BY MOUTH THREE TIMES DAILY NEEDED methimazole 5 mg tablet 5 mg PO TID Patient Comments: TAKE ONE TABLET BY MOUTH EVERY 8 HOURS gabapentin 300 mg capsule 300 mg PO 5XDAY dorzolamide-timolol 22.3-6.8 mg/mL drops 1 drp Eye-Both BID montelukast 10 mg tablet 10 mg PO PM Patient Comments: TAKE ONE TABLET BY MOUTH EVERY DAY carbidopa-levodopa 25-100 mg tablet 1 tab PO TID Patient Comments: TAKE ONE TABLET BY MOUTH THREE TIMES DAILY may take with OR without food fluticasone propionate 50 mcg/actuation spray,suspension 1 spray INTRANASAL DAILYP PRN (Reason: Allergy Symptoms) Patient Comments: instill 1-2 Loranger(s) IN EACH NOSTRIL EVERY DAY DIRECTED memantine 10 mg tablet 10 mg PO BID Patient Comments: TAKE ONE TABLET BY MOUTH TWICE DAILY cholecalciferol (vitamin D3) 25 mcg (1,000 unit) tablet 25 mcg PO BID Patient Comments: TAKE ONE TABLET BY MOUTH TWICE DAILY bupropion HCl 100 mg tablet 200 mg PO HS Patient Comments: TAKE ONE TABLET BY MOUTH EVERY MORNING AND TAKE TWO TABLETS BY MOUTH EVERY DAY AT BEDTIME cetirizine 10 mg Tablet 10 mg PO DAILY aspirin 81 mg Tablet,Delayed Release (Dr/Ec) 81 mg PO DAILY rosuvastatin 20 mg Tablet 20 mg PO HS Jardiance 25 mg Tablet 25 mg PO DAILY colchicine [Mitigare] 0.6 mg Capsule 0.6 mg PO DAILY albuterol sulfate 90 mcg/actuation HFA aerosol inhaler 2 puff INHALATION Q4HP PRN (Reason: Shortness Of Breath) Patient Comments: INHALE TWO PUFFS BY MOUTH EVERY 4 HOURS NEEDED FOR wheezing lidocaine 5 % adhesive patch,medicated 1 - 2 patch transdermal DAILY Patient Comments: APPLY 1-2 PATCHES TOPICALLY TO THE AFFECTED AREA ONCE DAILY AND LEAVE IN PLACE FOR 12 HOURS, THEN REMOVE AND LEAVE OFF FOR 12 HOURS docusate sodium 100 mg capsule 100 mg PO BID Patient Comments: TAKE ONE CAPSULE BY MOUTH TWICE DAILY Benlysta 200 mg/mL auto-injector 200 mg SQ DIRECTED hydrocodone-acetaminophen 5-325 mg tablet 1 tab PO Q4HP PRN (Reason: Moderate Pain (Scale Score 5-6)) magnesium oxide 400 mg (241.3 mg magnesium) Tablet 400 mg PO DAILY 30 Days Qty: 30 0RF prednisone 20 mg tablet 40 mg PO DAILY 5 Days Qty: 10 0RF albuterol sulfate 90 mcg/actuation aerosol powdr breath activated 1 inh inhalation Q6H PRN (Reason: shortness of breath or wheezing) Qty: 1 0RF azithromycin 250 mg tablet See Rx Instructions .ROUTE .COMPLEX Qty: 6 0RF Rx Instructions: For 250 mg dose pack: take 500 mg today (day 1), then 250 mg for 4 days (days 2-5) lidocaine HCl [Lidocaine Viscous] 2 % solution 1 applic mucous membrane Q12H PRN (Reason: pain) Qty: 100 0RF Referrals Follow up/Referrals: Miller Hazel MD [Primary Care Provider] - See instructions Activity Restrictions/Add. Instructions Additional Instructions/Restrictions: Follow-up with Dr. Brewer as early as possible to schedule appointment in clinic. Continue to take 650 mg of Tylenol every 6 hours as needed to help with symptoms. You can also take the hydrocodone every 8 hours as needed over the weekend for severe pain. If you develop any new or worsening symptoms, such as fever, worsening swelling or pain in the joint, warmth to the joint, or if you become concerned for your health for any reason, return to the emergency department for evaluation Clinical Impressions Clinical Impression: Acute pain of right knee, Swelling of right knee Print Language Print Language: Montenegrin Discharge ED Provider: Pro Christine General Adult HPI <Mesha Haywood (ED), COMPLIANCE INTERN - Last Filed: 09/02/24 15:48> General Chief complaint: Extremity Problem,Nontraumatic Stated complaint: right knee pain Time Seen by Provider: 09/02/24 12:41 Mode of Arrival: Wheelchair Source of Information: Patient Limitations: No Limitations Description of Symptoms (Recalled from ER Triage Doc. by RN): r knee pain History of Present Illness HPI narrative: This is a 78-year-old female who presents to the ED today after feeling a pop in her right knee and ankle prior to arrival today. She states that she cannot bear weight on that right leg due to the pain. States that she does have swelling but always has swelling in her legs. She recently had a left knee replacement back in January. She has been favoring this due to the replacement. Otherwise having pain only when she is on the knee. No other associated signs or symptoms at this time. Related Data Home Medications ?Medication ?Instructions ?Recorded ?Confirmed allopurinol 100 mg tablet 100 mg PO DAILY 04/10/23 08/22/24 bupropion HCl 100 mg tablet 100 mg PO DAILY 04/10/23 08/22/24 bupropion HCl 100 mg tablet 200 mg PO HS 04/10/23 08/22/24 carbidopa 25 mg-levodopa 100 mg 1 tab PO TID 04/10/23 08/22/24 tablet carvedilol 6.25 mg tablet 6.25 mg PO BID 04/10/23 08/22/24 chlorthalidone 25 mg tablet 25 mg PO DAILY 04/10/23 08/22/24 cholecalciferol (vitamin D3) 25 25 mcg PO BID 04/10/23 08/22/24 mcg (1,000 unit) tablet clopidogrel 75 mg tablet 75 mg PO DAILY 04/10/23 08/22/24 donepezil 10 mg tablet 10 mg PO HS 04/10/23 08/22/24 dorzolamide 22.3 mg-timolol 6.8 1 drp Eye-Both BID 04/10/23 08/22/24 mg/mL eye drops fluticasone propionate 50 1 spray intranasal DAILYP PRN 04/10/23 08/22/24 mcg/actuation nasal Allergy Symptoms spray,suspension gabapentin 300 mg capsule 300 mg PO 5XDAY Neuropathy 04/10/23 08/22/24 meclizine 25 mg tablet 25 mg PO TIDP PRN Vertigo 04/10/23 08/22/24 memantine 10 mg tablet 10 mg PO BID 04/10/23 08/22/24 methimazole 5 mg tablet 5 mg PO TID 04/10/23 08/22/24 montelukast 10 mg tablet 10 mg PO PM 04/10/23 08/22/24 potassium chloride 20 mEq 20 meq PO BID 04/10/23 08/22/24 tablet,extended release(part/cryst) primidone 250 mg tablet 250 mg PO HS 04/10/23 08/22/24 albuterol sulfate 90 mcg/actuation 2 puff inhalation Q4HP PRN 06/28/23 08/22/24 aerosol inhaler Shortness Of Breath aspirin 81 mg tablet,delayed 81 mg PO DAILY 06/28/23 08/22/24 release cetirizine 10 mg tablet 10 mg PO DAILY 06/28/23 08/22/24 colchicine 0.6 mg capsule 0.6 mg PO DAILY 06/28/23 08/22/24 (Mitigare) empagliflozin 25 mg tablet 25 mg PO DAILY 06/28/23 08/22/24 (Jardiance) rosuvastatin 20 mg tablet 20 mg PO HS 06/28/23 08/22/24 ascorbic acid (vitamin C) 500 mg 500 mg PO DAILY 10/28/23 08/22/24 tablet (Vitamin C) omeprazole 40 mg capsule,delayed 40 mg PO DAILY 10/28/23 08/22/24 release prednisone 5 mg tablet 5 mg PO DIRECTED 12/22/23 08/22/24 belimumab 200 mg/mL subcutaneous 200 mg SQ DIRECTED 03/04/24 08/22/24 auto-injector (Benlysta) docusate sodium 100 mg capsule 100 mg PO BID 03/04/24 08/22/24 hydrocodone 5 mg-acetaminophen 325 1 tab PO Q4HP PRN Moderate Pain 03/04/24 08/22/24 mg tablet (Scale Score 5-6) lidocaine 5 % topical patch 1 - 2 patch transdermal DAILY 03/04/24 08/22/24 hydrocodone 7.5 mg-acetaminophen tab PO 03/21/24 08/22/24 325 mg tablet famotidine 40 mg tablet mg PO 08/22/24 08/22/24 oxybutynin chloride 10 mg mg PO 08/22/24 08/22/24 tablet,extended release 24 hr pantoprazole 40 mg tablet,delayed mg PO 08/22/24 08/22/24 release Previous Rx's ?Medication ?Instructions ?Recorded magnesium oxide 400 mg (241.3 mg 400 mg PO DAILY 30 days #30 tabs 03/07/24 magnesium) tablet bumetanide 1 mg tablet See Rx Instructions .Route 03/13/24 .COMPLEX #90 tabs metoclopramide HCl 5 mg tablet 5 mg PO BID #60 tabs 08/22/24 (Reglan) albuterol sulfate 90 mcg/actuation 1 inh inhalation Q6H PRN shortness 08/27/24 breath activated powder inhaler of breath or wheezing #1 ea azithromycin 250 mg tablet See Rx Instructions PO .COMPLEX #6 08/27/24 tabs lidocaine HCl 2 % mucosal solution 1 applic mucous membrane Q12H PRN 08/27/24 (Lidocaine Viscous) pain #100 mL prednisone 20 mg tablet 40 mg (2 x 20 mg) PO DAILY 5 days 08/27/24 #10 tabs hydrocodone 5 mg-acetaminophen 325 1 tab PO Q8H PRN pain #6 tabs 09/02/24 mg tablet Allergies Allergy/AdvReac Type Severity Reaction Status Date / Time prochlorperazine Allergy Intermediate HALLUCINATI Verified 08/22/24 12:04 (PROCHLORPERAZINE) ONS oxycodone (OXYCODONE) Allergy Unknown HALLUCINATI Verified 08/22/24 12:04 ONS ibuprofen (IBUPROFEN) AdvReac Unknown PT HAS Verified 08/22/24 12:04 RENAL FAILURE PFSH <Mesha Haywood (ED), COMPLIANCE INTERN - Last Filed: 09/02/24 15:48> [facility] Disclaimer: The information contained in this section may have been updated after the patient was seen, as this information can be updated by other users. 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 (Updated 09/02/24 @ 17:05 by Pro Christine MD) Tinnitus SNHL (sensorineural hearing loss) Chronic eustachian tube dysfunction CAD in [place] artery Syncope Bilateral carotid artery disease Lymphedema Angina pectoris History of COVID-19 COPD (chronic obstructive pulmonary disease) Systemic lupus Hypothyroid Difficulty swallowing Unstable angina Cataract Renal disease PVD (peripheral vascular disease) Palpitations HTN (hypertension), benign Heart murmur HLD (hyperlipidemia) GERD (gastroesophageal reflux disease) DVT (deep venous thrombosis) Peripheral arterial disease Right carotid bruit Carotid bruit Edema Diastolic dysfunction HHD (hypertensive heart disease) Surgical History History of colonoscopy H/O tubal ligation H/O rotator cuff surgery History of back surgery Cataract extraction status, right eye Family History Other Alcoholism Anemia Cancer Coronary artery disease FHx: mental illness Heart attack Hyperlipidemia Hypertension Kidney disease Substance abuse Tuberculosis 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 Smoking Status: Former smoker tobacco type: cigarettes alcohol intake: former substance use type: denies use current occupational status: retired and disabled Travel in the last 8 weeks: None household members: children current occupational exposures/hazards: No Have you lived/traveled outside [place] in past 30 days?: No Contact w/someone who lives/traveled outside US past 30 days?: No Exposure to someone with infectious disease in past 14 days?: No Do you have a fever (greater than 100.4 F or 38 C)?: No Have you tested positive for COVID-19: No Exposed to someone with COVID-19 in past 14 days?: No Do you have a sore throat?: No Do you have a cough?: No Do you have any weakness?: No Do you have any diarrhea?: No Are you experiencing any unusual bleeding?: No Do you have any muscle aches/pain?: No Do you have any abdominal pain?: No Are you experiencing loss of taste or smell?: No Other 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 Have you received the Flu Vaccine for this season: No Have you received the Pneumonia Vaccine: Yes <Mesha Haywood (ED), COMPLIANCE INTERN - Last Filed: 09/02/24 15:48> ROS Obtained: Yes Systems reviewed as appropriate & no additional complaints except as documented Constitutional Constitutional: Reports as per HPI Physical Exam <Mesha Haywood (ED), COMPLIANCE INTERN - Last Filed: 09/02/24 15:48> General General appearance: alert and in no apparent distress Head Head exam: atraumatic and normocephalic Eye Eye exam: Present normal appearance, PERRL and EOMI ENT ENT exam: Present normal oropharynx and mucous membranes moist Neck Neck exam: Present full ROM and trachea midline Respiratory Respiratory exam: Present normal lung sounds bilaterally Cardiovascular Cardiovascular exam: Present regular rate, normal rhythm, normal heart sounds, +S1 and +S2 Extremities Exam Extremities exam: Present tenderness, normal capillary refill, edema and joint swelling Neurological Exam Neurological exam: Present alert and oriented X3 Skin Skin exam: Present warm, dry and intact Medical Decision Making <Mesha Haywood (ED), COMPLIANCE INTERN - Last Filed: 09/02/24 15:48> Medical Records Screening: Per USPSTF and CDC recommendations, given the prevalence of disease in our region, it is our hospital?s policy to screen for HIV and viral Hepatitis for all patients aged 18 and over and those with ongoing risk factors. Cecil Inquiry Pt receiving controlled substance: No Vital Signs: 09/02/24 12:29 09/02/24 12:35 09/02/24 13:31 Temperature 98.4 F Temperature Source Oral Pulse Rate 85 78 Pulse Rate [Right] 85 Respiratory Rate 18 18 Blood Pressure 162/73 H 144/55 H Blood Pressure [Right Arm] 162/73 H Blood Pressure Mean 89 84 Blood Pressure Mean [Right Arm] 102 02 Sat by Pulse Oximetry 98 96 Oxygen Delivery Method 09/02/24 14:25 09/02/24 14:30 09/02/24 15:01 Temperature Temperature Source Pulse Rate 89 73 71 Pulse Rate [Right] Respiratory Rate 15 15 Blood Pressure 153/67 H 141/71 H 159/58 H Blood Pressure [Right Arm] Blood Pressure Mean 101 91 Blood Pressure Mean [Right Arm] 02 Sat by Pulse Oximetry 99 98 95 Oxygen Delivery Method Room Air 09/02/24 15:31 09/02/24 16:01 09/02/24 16:30 Temperature Temperature Source Pulse Rate 74 70 Pulse Rate [Right] Respiratory Rate 18 18 Blood Pressure 152/68 H 173/65 H 178/68 H Blood Pressure [Right Arm] Blood Pressure Mean 96 101 104 Blood Pressure Mean [Right Arm] 02 Sat by Pulse Oximetry 95 Oxygen Delivery Method 09/02/24 17:07 Temperature 98.4 F Temperature Source Pulse Rate 81 Pulse Rate [Right] Respiratory Rate 18 Blood Pressure 178/68 H Blood Pressure [Right Arm] Blood Pressure Mean Blood Pressure Mean [Right Arm] 02 Sat by Pulse Oximetry Oxygen Delivery Method Lab Data Lab Results 09/02/24 15:16: WBC 7.3, RBC 4.80, Hgb 13.1, Hct 42.9, MCV 89.2, MCH 27.3, MCHC 30.6 L, RDW 17.4, Plt Count 243, MPV 9.1, Neut % (Auto) 71.6, Lymph % (Auto) 18.0, Taylor % (Auto) 6.4, Eos % (Auto) 3.6, Baso % (Auto) 0.5, Neut # (Auto) 5.2, Lymph # (Auto) 1.3, Taylor # (Auto) 0.5, Eos # (Auto) 0.3, Baso # (Auto) 0.0, ESR 22, Sodium 139, Potassium 4.1, Chloride 104, Carbon Dioxide 33 H, Anion Gap 6.1, BUN 27 H, Creatinine 1.60 H, Estimated Creat Clear 44, Estimated GFR 31 L, Est GFR ( Amer) 38 L, Glucose 88, Calcium 9.1, Total Bilirubin 0.4, AST 47 H, ALT 10 L, Alkaline Phosphatase 127 H, C-Reactive Protein 28.9 H, Total Protein 7.0, Albumin 4.0, Globulin 3.0, Albumin/Globulin Ratio 1.3 09/02/24 15:16 09/02/24 15:16 Orders (Tests/Meds): ORDERS Category Date Time Status Ankle XR -Right minimum 3 Views [XR ankle RT min 3V] Exams 09/02/24 12:39 Completed Stat Femur XR right 2 views [XR femur RT 2V] Stat Exams 09/02/24 12:41 Completed Hip XR right minimum 2 views [XR hip RT 2-3V w/pelvis] Exams 09/02/24 12:41 Completed Stat Knee XR right 3 views [XR knee RT 3V] Stat Exams 09/02/24 12:39 Completed Tibia/fibula XR right 2 views [XR tibia fibula RT 2V] Exams 09/02/24 12:41 Completed Stat CRP [C-Reactive Protein] Stat Lab 09/02/24 15:16 Completed Complete Blood Count Auto Diff Stat Lab 09/02/24 15:16 Completed Comprehensive Metabolic Panel Stat Lab 09/02/24 15:16 Completed ESR [Erythrocyte Sedimentation Rate] Stat Lab 09/02/24 15:16 Completed <Pro Christine MD - Last Filed: 09/02/24 17:42> Vital Signs: 09/02/24 12:29 09/02/24 12:35 09/02/24 13:31 Temperature 98.4 F Temperature Source Oral Pulse Rate 85 78 Pulse Rate [Right] 85 Respiratory Rate 18 18 Blood Pressure 162/73 H 144/55 H Blood Pressure [Right Arm] 162/73 H Blood Pressure Mean 89 84 Blood Pressure Mean [Right Arm] 102 02 Sat by Pulse Oximetry 98 96 Oxygen Delivery Method 09/02/24 14:25 09/02/24 14:30 09/02/24 15:01 Temperature Temperature Source Pulse Rate 89 73 71 Pulse Rate [Right] Respiratory Rate 15 15 Blood Pressure 153/67 H 141/71 H 159/58 H Blood Pressure [Right Arm] Blood Pressure Mean 101 91 Blood Pressure Mean [Right Arm] 02 Sat by Pulse Oximetry 99 98 95 Oxygen Delivery Method Room Air 09/02/24 15:31 09/02/24 16:01 09/02/24 16:30 Temperature Temperature Source Pulse Rate 74 70 Pulse Rate [Right] Respiratory Rate 18 18 Blood Pressure 152/68 H 173/65 H 178/68 H Blood Pressure [Right Arm] Blood Pressure Mean 96 101 104 Blood Pressure Mean [Right Arm] 02 Sat by Pulse Oximetry 95 Oxygen Delivery Method 09/02/24 17:07 Temperature 98.4 F Temperature Source Pulse Rate 81 Pulse Rate [Right] Respiratory Rate 18 Blood Pressure 178/68 H Blood Pressure [Right Arm] Blood Pressure Mean Blood Pressure Mean [Right Arm] 02 Sat by Pulse Oximetry Oxygen Delivery Method Lab Data Lab Results 09/02/24 15:16: WBC 7.3, RBC 4.80, Hgb 13.1, Hct 42.9, MCV 89.2, MCH 27.3, MCHC 30.6 L, RDW 17.4, Plt Count 243, MPV 9.1, Neut % (Auto) 71.6, Lymph % (Auto) 18.0, Taylor % (Auto) 6.4, Eos % (Auto) 3.6, Baso % (Auto) 0.5, Neut # (Auto) 5.2, Lymph # (Auto) 1.3, Taylor # (Auto) 0.5, Eos # (Auto) 0.3, Baso # (Auto) 0.0, ESR 22, Sodium 139, Potassium 4.1, Chloride 104, Carbon Dioxide 33 H, Anion Gap 6.1, BUN 27 H, Creatinine 1.60 H, Estimated Creat Clear 44, Estimated GFR 31 L, Est GFR ( Amer) 38 L, Glucose 88, Calcium 9.1, Total Bilirubin 0.4, AST 47 H, ALT 10 L, Alkaline Phosphatase 127 H, C-Reactive Protein 28.9 H, Total Protein 7.0, Albumin 4.0, Globulin 3.0, Albumin/Globulin Ratio 1.3 Orders (Tests/Meds): ORDERS Category Date Time Status Ankle XR -Right minimum 3 Views [XR ankle RT min 3V] Exams 09/02/24 12:39 Completed Stat Femur XR right 2 views [XR femur RT 2V] Stat Exams 09/02/24 12:41 Completed Hip XR right minimum 2 views [XR hip RT 2-3V w/pelvis] Exams 09/02/24 12:41 Completed Stat Knee XR right 3 views [XR knee RT 3V] Stat Exams 09/02/24 12:39 Completed Tibia/fibula XR right 2 views [XR tibia fibula RT 2V] Exams 09/02/24 12:41 Completed Stat CRP [C-Reactive Protein] Stat Lab 09/02/24 15:16 Completed Complete Blood Count Auto Diff Stat Lab 09/02/24 15:16 Completed Comprehensive Metabolic Panel Stat Lab 09/02/24 15:16 Completed ESR [Erythrocyte Sedimentation Rate] Stat Lab 09/02/24 15:16 Completed Medical Decision Narrative: Yoko Jerez is a 78-year-old female with a past medical history of COPD, lupus, who presents to the emergency department for complaints of right knee pain. Patient states that she was just walking when she had a pop and pain in her right knee. She reports chronic swelling to her knee but notes that her right knee does appear swollen. No fevers. No falls or other trauma. She has had difficulty bearing weight on that right lower extremity secondary to pain. On arrival, patient is hemodynamically stable, no acute respite distress, breathing comfortably on room air. Physical exam as above showed overall well appearing female with some tenderness and swelling to the right knee. Limited range of motion secondary to pain. Is not warm to the touch. Differential diagnosis includes but is not limited to: Fracture, ligamentous injury, joint effusion, hemarthrosis, septic joint, among others. Workup in the emergency department included: ESR, CRP, CBC, Right tib-fib x-ray, right hip x-ray, right femur x-ray, right knee x-ray, right ankle x-ray Patient's workup demonstrated no leukocytosis, ESR normal at 22, creatinine 1.6 (at patient's baseline), electrolytes otherwise unremarkable nonactionable, CRP mildly elevated at 28.9, however this appears to be at or below patient's baseline. X-ray imaging interpreted by me personally demonstrates no acute fracture or dislocation. See radiology reports for final details. Discussed the patient's case with Dr. Cardoso with orthopedic surgery for further guidance regarding potential need for arthrocentesis of the joint, however given her unremarkable lab work, is felt that this is not indicated at this time as there is low concern for septic arthritis. Patient eager for discharge at this time and notes that she sees Dr. Brewer with orthopedics and will get an appointment for Wednesday. She is being prescribed a short course of hydrocodone to help with pain over the weekend until she is able to get in with Dr. Brewer. Strict return precautions were given. All questions were answered. She demonstrated understanding and was agreed with this plan. She was then discharged from the emergency department in stable condition Critical Care <Mesha Haywood (MIKE), COMPLIANCE INTERN - Last Filed: 09/02/24 15:48> Critical Care Time Critical Care Time: No
--- NOTE | 2024-09-02 13:10 | PC.NURSE ---
PT RETURNED FROM XR
--- NOTE | 2024-09-02 14:17 | PC.NURSE ---
PT ASSISTED TO BR
[2024-09-02 15:23] LABS: Basophils % 0.5 % (0.1-2.0); Eosinophils # 0.3 K/mm3 (0.0-0.4); Eosinophils % 3.6 % (0.1-12.0); Hematocrit 42.9 % (37.0-47.0); Hemoglobin 13.1 g/dL (12.2-16.2); Lymphocytes # 1.3 K/mm3 (0.7-4.5); Mean Corpuscular HGB Conc 30.6 g/dL (31.8-35.4); Mean Corpuscular Hemoglobin 27.3 pg (27.0-31.2); Mean Corpuscular Volume 89.2 fl (81-99); Mean Platelet Volume 9.1 fl (7.4-10.4); Monocytes # 0.5 K/mm3 (0.1-1.0); Monocytes % 6.4 % (1.7-9.3); Neutrophils # 5.2 K/mm3 (1.8-7.8); Neutrophils % 71.6 % (37.0-80.0); Platelet Count 243 K/mm3 (142-424); Red Cell Distribution Width 17.4 % (11.5-17.5); White Blood Count 7.3 K/mm3 (4.8-10.8)
--- NOTE | 2024-09-02 15:25 | PC.NURSE ---
DR AHUJA SPEAKING WITH DR JORDAN
[2024-09-02 15:39] LABS: Chloride 104 mmol/L (98-107); Potassium 4.1 mmoL/L (3.5-5.1); Sodium 139 mmol/L (136-145)
[2024-09-02 15:42] LABS: Alanine Aminotransferase 10 U/L (12-78); Albumin/Globulin Ratio 1.3 (1.1-1.8); Alkaline Phosphatase 127 U/L (38-126); Anion Gap 6.1 mEq/L (5-15); Aspartate Amino Transferase 47 U/L (14-36); Bilirubin,Total 0.4 mg/dl (0.2-1.3); Blood Urea Nitrogen 27 mg/dl (7-17); Calcium 9.1 mg/dl (8.4-10.2); Carbon Dioxide 33 mmol/L (22.0-30.0); Creatinine Clearance Estimated 44 mL/min (50-200); Estimated Glomerular Filt Rate 31 ml/min (>60); GFR (African American) 38 ML/MIN (>60); Glucose 88 mg/dl (74-100)
[2024-09-02 15:47] LABS: C-Reactive Protein 28.9 mg/L (0-4)
[2024-09-02 16:30] LABS: Erythrocyte Sedimentation Rate 22 mm/hr (0-30)
--- NOTE | 2024-09-02 16:58 | PC.NURSE ---
DR MEHTA AT BEDSIDE TO UPDATE PT AND FAMILY
== END 2024-09-02 17:08 | disposition home or self-care (01) ==
PROVIDERS: Emergency Medicine; Emergency Provider Student in an Organized Health Care Education/Training Program; PCP Internal Medicine Adolescent Medicine
DX: M25.461 Effusion, right knee (principal); M25.561 Pain in right knee; M25.571 Pain in right ankle and joints of right foot
CPT/HCPCS: 73502; 73552; 73562; 73590; 73610; 80053; 85025; 85651; 86140; 99283

== ENCOUNTER 2024-09-19 12:59 | Outpatient (RCR) | payer MEDICARE, MEDICAID, SELFPAY | END 2024-09-19 23:59 | disposition home or self-care (01) | LOC: PT 12:59 | PROVIDERS: Visit Provider Orthopaedic Surgery | DX: M17.11 Unilateral primary osteoarthritis, right knee (principal) | CPT/HCPCS: 97163 ==

== ENCOUNTER 2024-10-19 13:00 | Outpatient (RCR) | payer MEDICARE, MEDICAID, SELFPAY | END 2024-10-19 23:59 | disposition home or self-care (01) | LOC: PT 13:00 | PROVIDERS: Visit Provider Orthopaedic Surgery | DX: M17.11 Unilateral primary osteoarthritis, right knee (principal) | CPT/HCPCS: 97014; 97110; 97140; G0283 ==

== ENCOUNTER 2024-11-16 13:00 | Outpatient (RCR) | payer MEDICARE, MEDICAID, SELFPAY | END 2024-11-16 23:59 | disposition home or self-care (01) | LOC: PT 13:00 | PROVIDERS: Visit Provider Orthopaedic Surgery | DX: M17.11 Unilateral primary osteoarthritis, right knee (principal) | CPT/HCPCS: 97110 ==

== ENCOUNTER 2024-11-16 14:00 | Outpatient (RCR) | payer MEDICARE, MEDICAID, SELFPAY | END 2024-11-16 23:59 | disposition home or self-care (01) | LOC: PT 14:00 | PROVIDERS: Visit Provider Orthopaedic Surgery | DX: R22.43 Localized swelling, mass and lump, lower limb, bilateral (principal) | CPT/HCPCS: 97140; 97163 ==

== ENCOUNTER 2024-12-12 10:00 | Outpatient (RCR) | payer MEDICARE, MEDICAID, SELFPAY | END 2024-12-12 23:59 | disposition home or self-care (01) | LOC: PT 10:00 | PROVIDERS: Visit Provider Orthopaedic Surgery | DX: M17.11 Unilateral primary osteoarthritis, right knee (principal) | CPT/HCPCS: 97010; 97110 ==

== ENCOUNTER 2024-12-12 11:00 | Outpatient (RCR) | payer MEDICARE, MEDICAID, SELFPAY | END 2024-12-12 23:59 | disposition home or self-care (01) | LOC: PT 11:00 | PROVIDERS: Visit Provider Orthopaedic Surgery | DX: R60.0 Localized edema (principal) | CPT/HCPCS: 97140 ==

== ENCOUNTER 2025-01-02 11:59 | Outpatient (CLI) | payer MEDICARE, MEDICAID, SELFPAY ==
[2025-01-02 12:07] LABS: Microscopic, Urine URINE MICROSCOPIC (MICROSCOPIC)
[2025-01-02 13:34] LABS: Erythrocyte Sedimentation Rate 21 mm/hr (0-30)
[2025-01-02 13:41] LABS: Uric Acid 5.8 mg/dl (2.5-6.2)
[2025-01-02 13:57] LABS: Appearance,Urine CLEAR (Clear); Bilirubin,Urine Negative (Negative); Blood, Urine Negative (Negative); Color,Urine YELLOW (Yellow); Glucose,Urine (UA) 3+ (Negative); Ketones,Urine Negative (Negative); Leukocyte Esterase,Urine Negative (Negative); Nitrate,Urine Negative (Negative); Protein,Urine Negative (Negative); Urobilinogen,Urine 0.2 EU/dl (0.2)
[2025-01-02 14:53] LABS: Bacteria,Urine Trace /lpf; RBC,Urine Occasional #/hpf (0-3)
[2025-01-03 08:42] LABS: Complement C3 233 mg/dL (82-167)
[2025-01-04 09:46] LABS: dsDNA AB Crithidia Negative (Negative)
== END 2025-01-02 23:59 | disposition home or self-care (01) ==
LOC: LAB 12:00
PROVIDERS: PCP Internal Medicine Adolescent Medicine; Visit Provider Internal Medicine Rheumatology
DX: M32.9 Systemic lupus erythematosus, unspecified (principal); I73.00 Raynaud's syndrome without gangrene; M54.2 Cervicalgia; R53.83 Other fatigue; M48.00 Spinal stenosis, site unspecified; Z91.89 Other specified personal risk factors, not elsewhere classified
CPT/HCPCS: 36415; 81001; 84550; 85651; 86161; 86225

== ENCOUNTER 2025-02-07 13:00 | Outpatient (RCR) | payer MEDICARE, MEDICAID, SELFPAY | END 2025-02-07 23:59 | disposition home or self-care (01) | LOC: PT 13:00 | PROVIDERS: PCP Internal Medicine Adolescent Medicine; Visit Provider Physician Assistant | DX: Z47.1 Aftercare following joint replacement surgery (principal) | CPT/HCPCS: 97163 ==

== ENCOUNTER 2025-03-13 13:00 | Outpatient (RCR) | payer MEDICARE, MEDICAID, SELFPAY | END 2025-03-13 23:59 | disposition home or self-care (01) | LOC: PT 13:00 | PROVIDERS: PCP Internal Medicine Adolescent Medicine; Visit Provider Physician Assistant | DX: Z47.89 Encounter for other orthopedic aftercare (principal); Z96.651 Presence of right artificial knee joint | CPT/HCPCS: 97110; 97140 ==

== ENCOUNTER 2025-04-02 10:16 | Outpatient (CLI) | payer MEDICARE, MEDICAID, SELFPAY ==
--- NOTE | 2025-04-02 10:20 | US_ITS ---
FINAL REPORT TECHNIQUE: Real-time grayscale and color ultrasound of the thyroid was performed. CLINICAL HISTORY: HYPOTHYROIDISIM/SINGLE THYROID NODULE COMPARISON: None FINDINGS: There is moderate bilateral thyromegaly with the thyroid gland measuring 55 x 31 x 27 mm on the right and 55 x 22 x 29 mm on the left. The isthmus measures 8 mm. . There are few small colloid cysts without suspicious solid nodule. The echotexture is normal. IMPRESSION: Thyromegaly without evidence of neoplasm. Reviewed, Interpreted and Dictated by Ibeth Schultz MD Transcribed by Estrella Novak Authenticated and [facility]
--- OUTSIDE RECORDS SUMMARY | 2025-04-02 10:22 | XMS_ITS | Clinical Summary ---
Author Organization [facility] Address [address] [place] [address] Care Team Providers Care Flow Trader Name Role Phone Miller Hazel MD Primary Care Provider [phone] Allergies Active Allergy Reactions Criticality Noted Date Comments Aspirin Other - please document in the comment field Low 02/12/2016 Renal issues Ibuprofen Other - please document in the comment field Low 08/22/2021 Oxycodone Hallucinations Medium 11/20/2013 Oxycodone-Acetaminophen Hallucinations Medium 11/22/19 14 Prochlorperazine Hallucinations,Other - please document in the comment field Medium 11/20/2013 Other reaction(s): seizure Tetracycline Unknown - Patient states they do not know rxn details Low 04/07/2021 Medications buPROPion SR (Wellbutrin SR) 100 MG 12 hr tablet 2 (two) times a day. 8 Active cetirizine (ZyrTEC) 10 MG tablet 7 Active fluticasone (Flonase) 50 MCG/ACT nasal spray 4 Active leflunomide (Arava) 20 MG tablet 7 Active methIMAzole (Tapazole) 5 MG tablet TAKE 1 TABLET ONCE DAILY. 7 Active predniSONE (Deltasone) 5 MG tablet Take 1 tablet (5 mg) by mouth 2 (two) times a day. 9 Active potassium chloride CR (Klor-Con M20) 20 MEQ ER tablet TAKE 1 TABLET TWICE DAILY. 6 Active simvastatin (Zocor) 20 MG tablet 7 Active primidone (Mysoline) 250 MG tablet TAKE 1 TABLET TWICE DAILY. 4 Active ascorbic acid (Vitamin C) 500 MG tablet Take 1 tablet (500 mg) by mouth 1 (one) time each day. Active b complex vitamins capsule Take 1 capsule by mouth 1 (one) time each day. Active calcium acetate (Phoslo) 667 MG capsule Take 2 capsules (1,334 mg) by mouth 3 (three) times a day with meals. Active bumetanide (Bumex) 1 MG tablet Take by mouth 3 (three) times a day. Active Acetaminophen Extra Strength 500 MG tablet Take 1 tablet (500 mg) by mouth 2 (two) times a day. 2 Active carbidopa-levo dopa (Sinemet) 25-100 MG tablet TAKE 1/2 TABLET BY MOUTH THREE TIMES DAILY FOR 1 WEEK, THEN TAKE ONE TABLET THREE TIMES DAILY THEREAFTER MAY take with OR without food 2 Active Cyanocobalamin ER 1000 MCG tablet controlled-rel ease Active gabapentin (Neurontin) 300 MG capsule 5 (five) times a day. 2 Active montelukast (Singulair) 10 MG tablet Take 1 tablet (10 mg) by mouth 1 (one) time each day in the evening. 2 Active carvedilol (Coreg) 6.25 MG tablet 2 (two) times a day. 2 Active Ventolin HFA 108 (90 Base) MCG/ACT inhaler if needed. 2 Active meclizine (Antivert) 25 MG tablet Take 1 tablet (25 mg) by mouth 3 (three) times a day if needed. 2 Active Mitigare 0.6 MG capsule Take 1 capsule by mouth 1 (one) time each day. 2 Active cholecalcifero l (Vitamin D3) 25 MCG (1000 UT) tablet Take 1 tablet (1,000 Units) by mouth 2 (two) times a day. 2 Active buPROPion (Wellbutrin) 100 MG tablet TAKE ONE TABLET BY MOUTH EVERY MORNING AND TAKE TWO TABLETS BY MOUTH EVERY DAY AT BEDTIME 2 Active chlorthalidone (Hygroton) 25 MG tablet Take 1 tablet (25 mg) by mouth 1 (one) time each day. 2 Active allopurinol (Zyloprim) 100 MG tablet Take 1 tablet (100 mg) by mouth 1 (one) time each day. 3 Active clopidogrel (Plavix) 75 MG tablet clopidogrel 75 mg tablet TAKE ONE TABLET BY MOUTH EVERY DAY Active ferrous gluconate (Ferate) 240 (27 Fe) MG tablet 1 (one) time each day. Active memantine (Namenda) 10 MG tablet Take 1 tablet (10 mg) by mouth. 3 Active omeprazole (PriLOSEC) [address] capsule Take 1 capsule (20 mg) by mouth. 3 Active donepezil (Aricept) 10 MG tablet Take 1 tablet (10 mg) by mouth every night. 3 Active Jardiance 25 MG Take 1 tablet (25 mg) by mouth 1 (one) time each day. 3 Active rosuvastatin (Crestor) 20 MG tablet Take 1 tablet (20 mg) by mouth 1 (one) time each day. 3 Active aspirin 81 MG EC tablet Take 1 tablet (81 mg) by mouth 2 (two) times a day. Active Benlysta 200 MG/ML solution auto-injector 4 Active magnesium oxide (Mag-Ox) 400 (240 Mg) MG tablet Take 1 tablet (400 mg) by mouth 1 (one) time each day. 4 Active lidocaine (Lidoderm) 5 % patch APPLY 1-2 PATCHES TOPICALLY TO THE AFFECTED AREA ONCE DAILY AND LEAVE IN PLACE FOR 12 HOURS, THEN REMOVE AND LEAVE OFF FOR 12 HOURS 4 Active HYDROcodone-ac etaminophen (Grant) 7.5-325 MG tablet TAKE ONE TABLET BY MOUTH EVERY 6 HOURS NEEDED MAY CAUSE DROWSINESS 4 Active metOLazone (Zaroxolyn) 5 MG tablet Take 1 tablet (5 mg) by mouth every other day. 60 tablet 5 4 Active famotidine (Pepcid) 40 MG tablet Take 1 tablet (40 mg) by mouth every night. Active pantoprazole (Protonix) 40 MG EC tablet Take 1 tablet (40 mg) by mouth 1 (one) time each day. 4 Active amantadine (Symmetrel) 100 MG tablet Active nystatin (Mycostatin) 853896 UNIT/ML suspension Take 4 mL (400,000 Units) by mouth 2 (two) times a day. 4 Active oxybutynin XL (Ditropan-XL) 10 MG 24 hr tablet Take 1 tablet (10 mg) by mouth 1 (one) time each day. 4 Active dorzolamide-ti molol (Cosopt) 2-0.5 % ophthalmic solution Administer 1 drop into both eyes 2 times a day. 20 mL 3 5 Active dorzolamide-ti molol (Cosopt) 2-0.5 % ophthalmic solution Administer 1 drop into both eyes 2 (two) times a day. 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 08/10/2021 Hyponatremia 03/06/2020 Pulmonary hypertension 04/21/2019 Post menopausal problems 05/26/2017 Migraine without aura, not refractory 02/12/2016 Hypertensive disorder 07/21/2015 Renal osteodystrophy 05/02/2015 Essential (primary) hypertension 08/30/2013 Hypokalemia 08/30/2013 Stage III chronic kidney disease 08/30/2013 Systemic lupus erythematosus with organ system i nvolvement 08/30/2013 Systemic lupus erythematosus 07/17/1990 Encounters Date Type Department Care Team Description 03/15/2025 Refill [facility] [address] [place] [address] Annika Sheridan MD [facility] [address] [place] [address] Annika Sheridan MD from Last 3 Months Immunizations Immunization Administration Dates Next Due Influenza, High-dose, Split Virus, Trivalent, Injectable, preservative free 06/20/2024,06/22/2023,06/08/2022,2020,05/29/2020 Influenza, Split (incl. jojo fied surface antigen) 06/28/2019,07/07/2017 Influenza, high-dose, quadrivalent 05/29,06/22/2023,06/08/2022,2020,05/29/2020,05/29/2020 Influenza, injectable, quadrivalent 05/21/2020,1 ,05/21/2010 Influenza, injectable, quadr ivalent, preservative free 06/20/2018 Influenza, seasonal, injectable 10/02/2019 Moderna COVID-19 Vaccine (Re d Cap) 12+ years 04/23/2022,12/18/2020,12/18/2020,2020,10/30/2020,10/18/2020 PPD Skin Test (TB Skin Test) 08/22/2021 Pneumococcal 20-luzmaria Conj Vaccine 07/05/2023 Pneumococcal Conjugate PCV 13 10/02/2019 Pneumococcal, Unspecified 09/20/2016 SARS-CoV-2, Unspecified 12/18/2020,11/18/2020 Tdap 07/29/2023 Zoster, Recombinant 05/09/2020,06/28/2019 Family History 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 Relation Name Comments Conversions - Other Father Alcohol addiction Hypertension Father Conversions - Other Mother Alcohol addiction Hypertension Mother Liver cancer Mother Cataracts Other Conversions - Other Sister 1 Alcohol addiction Hypertension Sister 1 Hypertension Sister 2 Relation Name Status Comments Father Mother Other Sister 1 Sister 2 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 Tobacco Use Types Packs/Day Years Used Date Smoking Tobacco: Former Cigarettes 0.5 33 S tarted: 09/20/1957 Passive Smoke Exposure: Past Smokeless Tobacco: Never Tobacco Cessation:Counseling Given: Not Answered Alcohol Use Standard Drinks/Week Comments Not Currently 0 (1 standard drink = 0.6 oz pur e alcohol) Comments Unknown Sex and Gender Information Value Date Recorded Sex Assigned at Not on file Legal Sex Female 7:46 PM EDT Gender Identity Not on file Sexual Orientation Not on file Last Filed Vital Signs Vital Sign Reading Time Taken Comments Blood Pressure 149/71 03/20/2024 9:48 AM EDT Pulse 80 03/20/2024 9:48 AM EDT Temperature 36 C (96.8 F) 06/16/2023 2:05 PM EDT Respiratory Rate 16 06/16/2023 2:05 PM EDT Oxygen Saturation 97% 05/31/2023 10:31 AM EDT Inhaled Oxygen Concentration - - Weight 89.4 kg (197 lb) 03/20/2024 9:48 AM EDT Height 162.6 cm (5' 4 ) 06/16/2023 2:05 PM EDT Body Mass Index 33.81 06/16/2023 2:05 PM EDT Plan of Treatment Upcoming Encounters Date Type Department Care Team (Late st Contact Info) Description 05/08/2025 10:45 AM EDT Office Visit [facility] [address] [place] [address] Annika Sheridan MD [address] [address] Health Maintenance Due Date Last Done Comments [facility]-Bone Density Scan 1945 [facility]-Depression Screening 1945 [facility]-Hepatitis C Screening 1945 [facility]-Medicare Annual Wellness (AWV) 1945 [facility]-/Child/Adol SDOH Screenings 1945 [facility]- SDOH Screenings 1965 [facility]-Adult SDOH Screenings 1965 [facility]-RSV Vaccine: 60+ Years or (1 - 1-dose 75+ series) 2022 [id number] Vaccine (11 - Moderna risk 2023- season) 2024 06/14/2024, 07/29/2023, 04/23/2022, Additional history exists [facility]-Influenza Vaccine (#1) 05/21/202506/20, 05/29/2024, 06/22/2023, Additional history exists [facility]-DTaP,Tdap,and Td Vaccines (2 - Td or Tdap) 07/29/2033 07/29/2023 [facility]-Zoster Vaccines Completed 05/09/2020, 9 [facility]-Pneumococcal Vaccine: 50+ Years Completed 07/05/2023, 10/02/2019, 09/20/2016 [facility]-Diabetes: Hemoglobin A1C Discontinued 02/09/2024, 08/05/2023, 05/12/2023 [facility]-Obesity Intervention Completed 025, 09/29/2024, 06/15/2024, Additional history exists HPV Vaccines Aged Out No longer eligi ble based on patient's age to complete this topic [facility]-HIB Vaccines Aged Out No longer e ligible based on patient's age to complete this topic [facility]-Hepatitis A Vaccines Aged Out No longer eligible based on patient's age to complete this topic [facility]-IPV Vaccines Aged Out No longer e ligible based on patient's age to complete this topic [facility]-Rotavirus Vaccines Aged Out No lo nger eligible based on patient's age to complete this topic Medical Devices Implanted Type Area Data Reduction Technician Device Identifier Shelf Expiration Date Model / Serial / Lot Lens [id number] - [id number] Implanted:Qty: 1 on 06/29/2022 by Annika Sheridan MD at [facility] Right: Eye [id number] 01/06/2027 [id number] / [id number] / [id number] Insurance MEDICAID-[place] MEDICARE Care Teams Flow Trader Relationship Specialty Start Date End Date Miller Hazel MD [address] [place] [address] PCP - General 08/04/21
--- OUTSIDE RECORDS SUMMARY | 2025-04-02 10:22 | XMS_ITS | Encounter Summary ---
Author Organization [facility] Address [address] [place] [address] Care Team Providers Care Concierge Receptionist Name Role Phone Miller Hazel MD Primary Care Provider [phone] Reason for Visit * Reason Onset Date Comments Med Refill 03/15/2025 Encounter Details Date Type Department Care Team (Late Contact Info) Description 03/15/2025 Refill [facility] [address] [place] [address] Annika Sheridan MD [address] [address] 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 Tobacco Use Types Packs/Day Years [...] on file Sexual Orientation Not on file documented as of this encounter Plan of Treatment Upcoming Encounters Date Type Department Care Team (Late Contact Info) Description 05/08/2025 10:45 AM EDT Office Visit [facility] [address] [place] [address] Annika Sheridan MD [address] [address] documented as of this encounter Visit Diagnoses Not on filedocumented in this encounter Additional Health Concerns Assessment Noted Time A fall risk assessment has been complete d for the patient 11/07/2024 11:20 AM EST A Body Mass Index follow-up plan has been documented for the patient 11/07/2024 12:26 PM EST documented as of this encounter Care Teams Concierge Receptionist Relationship Specialty Start Date End Date Miller Hazel MD [address] [place] [address] PCP - General 08/04/21 documented as of this encounter
--- OUTSIDE RECORDS SUMMARY | 2025-04-02 10:22 | XMS_ITS ---
Author Organization [facility] Care Team Providers Care Automatic Packer Operator Name Role Phone Marisela Del Cid) Unavailable Unavail able Miller Hazel Unavailable Unavailable Allergies and adverse reactions Code CodeSystem Substance Reaction Severity StartDate Concern Status 8704 RXNORM Prochlorperazine Unknown 08/22/2021 acti ve 7804 RXNORM Oxycodone Unknown 08/22/2021 active 5640 RXNORM Ibuprofen Unknown 08/22/2021 active Care Team Name Role Address Phone Organization Dates Miller Hazel PCP [address], [place], [address], [place] (Office): [facility] 08/22/2021 - 09/25/2021 Marisela Dozier) [place], [address], [place] (Office): : [facility] 08/22/2021 - 09/25/2021 Goals Section Goals Description Status Target Date Goal is slow slight weight l oss, 1-2#/month, closer to IBWR, with po of 50% or greater. Soft, formed bowel movement every 1-3 days. Free from s/s of dehydration. Free from edema. Active 022 Immunizations Immunization Status Vaccine Details Vaccine Code CodeSystem Date Notes Influenza completed Influenza, high-dose, split virus, quadrivalent, injectable, preservative free 197 CVX created date: 08/22/2021 administer ed date: 05/14/2021 Pneumovax Dose 1 completed Influenza, spli t virus, trivalent, injectable, contains preservative 141 CVX created date: 08/22/2021 administer ed date: 10/02/2019 TB 1 Step Mantoux (PPD) completed tuberculin skin test; unspecified formulation expiry: 12/12/2022 Mfg: [employer] Given 0.5 ml Left Forearm subcutaneously 98 CVX created date: 08/23/2021 consent date: 08/22/2021 administer ed date: 08/22/2021 Educated by on 08/22/2021 2nd dose Moderna COVID-19 Vaccine completed SARS-COV-2 (COVID-19) vaccine, mRNA, spike protein, LNP, preservative free, 100 mcg/0.5mL dose or 50 mcg/0.25mL dose 207 CVX created date: 08/22/2021 administer ed date: 12/18/2020 Mental Status Section Date Assessment Total Score Description 09/25/2021 BIMS 15 cognitively int act CAM 0 No delirium ind icated PHQ-9 06 mild depression 08/27/2021 BIMS 14 cognitively int act CAM 0 No delirium ind icated PHQ-9 08 mild depression Problems Problem # Description Date of onset Resolved Date Code CodeSystem Concern Status 1 ACUTE ANGLE-CLOSURE GLAUCOMA, UNSPECIFIED EYE 08/22/2021 08/22/[address] completed 2 ANEMIA IN OTHER CHRONIC DISEASES CLASSIFIED ELSEWHERE 08/22/[address] active 3 ANEMIA, UNSPECIFIED 08/22/[address] active 4 CARDIAC MURMUR, UNSPECIFIED 08/22/[address] active 5 CHRONIC KIDNEY DISEASE, UNSPECIFIED 08/22/[address] active 6 DISORDER OF THYROID, UNSPECIFIED 08/22/[address] active 7 ELEVATED ERYTHROCYTE SEDIMENTATION RATE 08/22/[address] active 8 EPIGASTRIC PAIN 08/22/[address] ac tive 9 ESSENTIAL (PRIMARY) HYPERTENSION 08/22/[address] active 10 GASTRO-ESOPHAGEAL REFLUX DISEASE WITHOUT ESOPHAGITIS 08/22/[address] active 11 HYPERLIPIDEMIA, UNSPECIFIED 08/22/[address] active 12 HYPO-OSMOLALITY AND HYPONATREMIA 08/22/[address] active 13 MUSCLE WEAKNESS (GENERALIZED) 08/22/[address] active 14 OTHER REDUCED MOBILITY 08/22/[address] active 15 OTHER SPECIFIED ARTHRITIS, UNSPECIFIED SITE 08/22/[address] active 16 PAIN IN UNSPECIFIED JOINT 08/22/[address] active 17 PALPITATIONS 08/22/[address] activ e 18 PERIPHERAL VASCULAR DISEASE, UNSPECIFIED 08/22/[address] active 19 PROBLEM RELATED TO SOCIAL ENVIRONMENT, UNSPECIFIED 08/22/[address] active 20 SYSTEMIC LUPUS ERYTHEMATOSUS, UNSPECIFIED 08/22/[address] active 21 UNSPECIFIED DISORDER OF NOSE AND NASAL SINUSES 08/22/[address] active 22 UNSPECIFIED GLAUCOMA 08/22/[address] active 23 UNSTEADINESS ON FEET 08/22/[address] active 24 URINARY TRACT INFECTION, SITE NOT SPECIFIED 08/22/[address] active Reason for Referral No Reasons for Referral Entered 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 Observation Description Start Date End Date Code Code System Current Smoking Status Tobacco smoking consumption unknown 894705525 SNOMED CT Sex Assigned At Female 1945 63519-8 [facility] Gender Identity Vital Signs Code Code System Vitals Name Values and Units Timing Information 24527-9 [facility] Pain Level Value=2.0 09/25/2021 8310-5 [facility] Body Temperature Value=98.0 Units= F 09/25/2021 75296-4 [facility] O2 % BldC Oximetry Value=98.0 Units= % 09/25/2021 59267-4 [facility] Weight Bnqij=789.8 Units=Lbs 01/2022 8867-4 [facility] Heart rate Value=64.0 Units=/min 8462-4 [facility] Blood Pressure-Diastolic Value=48 Un its=mmHg 09/11/2021 8480-6 [facility] Blood Pressure-Systolic Cpqto=764 Un its=mmHg 09/11/2021 9279-1 [facility] Respiratory Rate Value=18.0 Units=/m in 09/10/2021 8302-2 [facility] Height Value=64.0 Units=Inches 08/22/2021
--- OUTSIDE RECORDS SUMMARY | 2025-04-02 10:22 | XMS_ITS | Clinical Summary ---
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 Name Role Phone Jerry MEJIAS, Marilou Unavailable Unavailable Conditions or Problems Problem Name Problem Code Onset Date Status Entry Date Provider Comment Standard Description Annotate Kidney disease, chronic, stage II 729989160 (SNOMED CT) 03/06 Active 03/06 Bobo Vizcarra MD Chronic kidney disease stage 2 UTI, recurrent 618824419 (SNOMED CT) 03/06 Active 03/06 Bobo Vizcarra MD Recurrent urinary tract infection DIARRHEA, CHRONIC 448882490 (SNOMED CT) 06/17 Active 06/17 Bobo Vizcarra MD Chronic diarrhea SYSTEMIC LUPUS ERYTHEMATOSU S 46963637 (SNOMED CT) 06/17 Active 06/17 Bobo Vizcarra MD Systemic lupus erythematosus IMMUNOCOMPRO MISED 701866971 (SNOMED CT) 06/17 Active 06/17 Bobo Vizcarra MD Immunodeficienc y disorder RHEUMATOID ARTHRITIS 51321067 (SNOMED CT) 06/17 Active 06/17 Bobo Vizcarra MD Rheumatoid arthritis C. Difficile colitis, recurrent 11967564 (SNOMED CT) 03/05 Active 03/05 Martine Damir Enterocolitis DIARRHEA, CHRONIC 455379886 (SNOMED CT) 06/17 Resolved 06/17 Martine Damir Chronic diarrhea LEUKOPENIA 43108958 (SNOMED CT) 06/17 Resolved 06/17 Martine Damir Leukopenia RHEUMATOID ARTHRITIS 14053144 (SNOMED CT) 06/17 Resolved 06/17 Martine Damir Rheumatoid arthritis THROMBOCYTOP ENIA 502407017 (SNOMED CT) 06/17 Resolved 06/17 Martine Reich Thrombocytopeni c disorder SYSTEMIC LUPUS ERYTHEMATOSU S 97282504 (SNOMED CT) 06/17 Resolved 06/17 Martine Reich Systemic lupus erythematosus HEPATITIS 345977174 (SNOMED CT) 06/17 Resolved 06/17 Martine Reich Inflammatory disease of liver ANEMIA 517875182 (SNOMED CT) 06/17 Resolved 06/17 Martine Reich Anemia IMMUNOCOMPRO MISED 891829799 (SNOMED CT) 06/17 Resolved 06/17 Martine Reich Immunodeficienc y disorder SEPSIS SYNDROME A41.9 (ICD-10-CM ) 06/17 Resolved 06/17 Martine Reich Sepsis, unspecified organism THRUSH 61885142 (SNOMED CT) Resolved Martine Reich Candidiasis THRUSH 09970798 (SNOMED CT) Removed Jaskaran Estrada MD Candidiasis RHEUMATOID ARTHRITIS 95503614 (SNOMED CT) 06/17 Removed 06/17 Marilou Edwards RN Rheumatoid arthritis ANEMIA 899106587 (SNOMED CT) 06/17 Removed 06/17 Marilou Edwards RN Anemia THROMBOCYTOP ENIA 824025387 (SNOMED CT) 06/17 Removed 06/17 Marilou Edwards RN Thrombocytopeni c disorder LEUKOPENIA 40510815 (SNOMED CT) 06/17 Removed 06/17 Marilou Edwards RN Leukopenia SYSTEMIC LUPUS ERYTHEMATOSU S 12523010 (SNOMED CT) 06/17 Removed 06/17 Marilou Edwards RN Systemic lupus erythematosus DIARRHEA, CHRONIC 255199184 (SNOMED CT) 06/17 Removed 06/17 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 diarrhea IMMUNOCOMPRO MISED 414862940 (SNOMED CT) 06/17 Removed 06/17 Marilou Edwards RN Immunodeficienc y disorder HEPATITIS 495021291 (SNOMED CT) 06/17 Removed 06/17 Marilou Edwards RN Inflammatory disease of liver SEPSIS SYNDROME A41.9 (ICD-10-CM ) 06/17 Removed 06/17 Marilou Edwards RN Sepsis, unspecified organism Medications Medication Instructions Start Date Stop Date Generic Name NDC Provider PREDNISONE 20 MG TABS twice a day prednisone [id number] Yasmine Levine LEFLUNOMIDE 20 MG TABS leflunomide 09859926662 [facility] [place] KLOR-CON 20 MEQ PACK potassium chloride 89783786851 [facility] [place] ZOLPIDEM TARTRATE 10 MG TABS zolpidem 65389455302 [facility] [place] DORZOLAMIDE HCL-TIMOLOL MAL 2-0.5 % SOLN dorzolamide-timol ol 40966411851 [facility] [place] LISINOPRIL-HYDROC HLOROTHIAZIDE 10-12.5 MG TABS lisinopril-hydroc hlorothiazide 92149794566 [facility] IMODIUM A-D TABLET IMODIUM A-D TABLET [facility] [place] DIGOXIN 125 MCG TABS digoxin 99858790401 [facility] [place] BUPROPION HCL 75 MG TABS bupropion hcl 32644329277 [facility] [place] OMEPRAZOLE 20 MG TBEC omeprazole 27622386731 [facility] [place] DIAZEPAM 5 MG TABS diazepam 63602245167 [facility] SIMVASTATIN 20 MG TABS simvastatin 77544828246 [facility] [place] MECLIZINE HCL 25 MG TABS meclizine 31630689070 [facility] [place] IMURAN 50 MG TABS azathioprine 49239303596 [facility] [place] LATANOPROST 0.005 % SOLN latanoprost 75211844510 [facility] [place] DEPAKOTE 500 MG TBEC divalproex 25859380141 [facility] [place] PRIMIDONE 250 MG TABS primidone 06474012590 [facility] [place] TRAMADOL HCL 50 MG TABS tramadol 78640587185 [facility] [place] CYCLOBENZAPRINE HCL 5 MG TABS cyclobenzaprine 28156965634 [facility] [place] MITIGARE 0.6 MG CAPS colchicine 93209588777 Emil [place] METOCLOPRAMIDE HCL 10 MG TABS metoclopramide hcl 49848460938 Emil Elena CARBIDOPA-LEVODOP A 25-100 MG TABS carbidopa-levod op a 36020122354 [facility] [place] BUMETANIDE 1 MG TABS bumetanide 38276247492 Emil Elena METHIMAZOLE 5 MG TABS methimazole 19593929627 Emil [place] BUPROPION HCL 100 MG TABS bupropion hcl 89494781092 [facility]il [place] CHLORTHALIDONE 25 MG TABS chlorthalidone 14011594885 Emil Elena PREDNISONE 5 MG TABS 03/19 prednisone 97053064953 Emil Elena DONEPEZIL HCL 10 MG TABS donepezil 51049548909 Emil Elena CITALOPRAM HYDROBROMIDE 10 MG TABS citalopram 40846993335 Emil Elena AZELASTINE HCL 0.1 % SOLN azelastine 88175956791 Emil Elena MONTELUKAST SODIUM 10 MG TABS montelukast 20126018586 [facility] GABAPENTIN 300 MG CAPS gabapentin 41718581646 Emil Elena POTASSIUM CHLORIDE JONATHAN ER 20 MEQ CR-TABS potassium chloride 37747348129 Emil [facility] TRAVOPROST (VALENTIN FREE) 0.004 % SOLN travoprost 13097219844 Emil [place] CARVEDILOL 12.5 MG TABS carvedilol 57955337572 Em[facility] [place] IMODIUM A-D TABS 03/06 LOPERAMIDE HCL TABS 99890780510 Jaskaran Estrada MD COLESTID 1 GM TABS COLESTIPOL HCL 02488322152 Jaskaran Estrada MD DOXYCYCLINE HYCLATE 100 MG CAPS DOXYCYCLINE HYCLATE 73696666706 Jaskaran Estrada MD FLAGYL 500 MG ORAL TABLET METRONIDAZOLE 27410908224 Jaskaran Estrada MD LEVAQUIN 500 MG ORAL TABLET Take 1 tablet by mouth daily LEVOFLOXACIN 06566748915 Jaskaran Estrada MD FLAGYL 500 MG ORAL TABLET Take one (1) tablet by mouth three times a day METRONIDAZOLE 52026351131 Jaskaran Estrada MD DOXYCYCLINE HYCLATE 100 MG CAPS Take one (1) tablet by mouth twice a day DOXYCYCLINE HYCLATE 10881840600 Jaskaran Estrada MD DEPAKOTE 500 MG TBEC 12/27 DIVALPROEX SODIUM 52714753959 Rachna Myers RN OMEPRAZOLE 20 MG TBEC 03/06 OMEPRAZOLE 11065354192 Rachna Myers RN CYCLOBENZAPRINE HCL 5 MG TABS 0 03/20 CYCLOBENZAPRINE HCL 09756853709 Rachna Myers RN DIAZEPAM 5 MG TABS 0 03/20 DIAZEPAM 83656037035 Rachna yMers RN DIGOXIN 125 MCG TABS 03/20 DIGOXIN 74488020472 Rachna Myers RN TRAMADOL HCL 50 MG TABS 03/06 TRAMADOL HCL 42833041351 Rachna Myers RN SIMVASTATIN 20 MG TABS 03/06 SIMVASTATIN 07960993262 Rachna Myers RN DORZOLAMIDE HCL-TIMOLOL MAL 2-0.5 % SOLN 03/06 DORZOLAMIDE HCL-TIMOLOL MAL 26561182059 Rachna Myers RN LISINOPRIL-HYDROC HLOROTHIAZIDE 10-12.5 MG TABS 03/06 LISINOPRIL-HYDROC HLOROTHIAZIDE 01673424344 Rachna Myers RN LATANOPROST 0.005 % SOLN 03/06 LATANOPROST 07333591398 Rachna Myers RN COLESTID 1 GM TABS COLESTIPOL HCL 98362397795 Rachna Myers RN DOXYCYCLINE HYCLATE 100 MG CAPS 12/26 DOXYCYCLINE HYCLATE 91524753294 Rachna Myers RN FLAGYL 500 MG ORAL TABLET 0 METRONIDAZOLE 94856370365 Rachna Myers RN PRIMIDONE 250 MG TABS 11/16 PRIMIDONE 67044505067 Rachna Myers RN BUPROPION HCL 75 MG TABS 03/20 BUPROPION HCL 13426055121 Rachna Myers RN KLOR-CON 20 MEQ PACK 03/06 POTASSIUM CHLORIDE 90771131487 Rachna Myers RN ZOLPIDEM TARTRATE 10 MG TABS 03/06 ZOLPIDEM TARTRATE 86698169981 Rachna Myers RN MECLIZINE HCL 25 MG TABS 03/06 MECLIZINE HCL 46238339723 Rachna Myers RN LEFLUNOMIDE 20 MG TABS 03/06 LEFLUNOMIDE 53864481820 Rachna Myers RN IMURAN 50 MG TABS 03/06 AZATHIOPRINE 53328750730 Rachna Myers RN LEVAQUIN 500 MG ORAL TABLET Take 1 tablet by mouth daily 12/19 LEVOFLOXACIN 21839548336 [facility] FLAGYL 500 MG ORAL TABLET Take one (1) tablet by mouth three times a day METRONIDAZOLE 04452598453 [facility] DOXYCYCLINE HYCLATE 100 MG CAPS Take one (1) tablet by mouth twice a day 12/26 DOXYCYCLINE HYCLATE 33714595339 [facility] Medications Administered No information available. 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 MEDS REVIEW Done Documenta tion of current medications (procedure) Plan of Care Type Date Detail Pending order C-Diff PCR Pending order C-Diff Toxin A a nd B EIA Pending order CMP Pending order CBC with Differe ntial Pending order Sedimentation Ra te (ESR) Pending order C- reactive prot ein Procedures Code Procedure Name Date Entry Date CPT-cdpcr C-Diff PCR CPT-92025 C-Diff Toxin A and B EIA 202 10/26/16 CPT-90784 Flu Vaccine CPT-40671 CMP CPT-79569 CBC with Differential CPT-77201 Sedimentation Rate (ESR) 201 10/30/00 CPT-84919 C- reactive protein Vital Signs Date Name [...] Weight Measured 157.4 [lb_av] weight E& M Weight Measured 157.4 [lb_av] weight E& M Immunizations No information available. Advance Directives Directive Description Start Date ADVANCED DIRECTIVES ESTABLISHED
--- OUTSIDE RECORDS SUMMARY | 2025-04-02 10:22 | XMS_ITS | Continuity of Care Document ---
Author Organization [facility], NEUROLOGY [address] [place] [address] Care Team Providers Care Signal Maintainer Name Role Phone RADHA MIDDLETON Primary Care Provider [phone] ADOLFO HALL Tobacco Weigher NNAMDI, CORCHIA Project Consultant Unavailabl e Assessment No assessment recorded. Plan of Treatment Reminders Order Date Submit Date Provider Last Modified By Organization Details Last Modified Time Details Appointments [facility] 20 2024 01:20P M JULIANNA MALONE MD Not available Not available Not available RECHECK 2024 09:45A M ZEHRA LARIOS PA-C Not available Not available Not available RHEUM RECHECK 2024 10:45A M ADOLFO HALL MD Not available Not available Not available RECHECK 2024 10:30A M FED[place] NATION NP Not available Not available Not available NEUROLOG Y RECHECK 2025 10:30A M NEENA DEVI DO Not available Not available Not available Lab None recorded . Referral None recorded . Procedures None recorded . Surgeries None recorded . Imaging None recorded . Medication Orders None recorded . Patient TargetsNo targets recorded. Patient Instructions Encounter Date Encounter Id Patient Instructions Last Modified By Organization Details Last Modified Time 02/16/2025 [id number] medical record request* - nerve studies done on her legs [id number] Not available 02/20/2025 08:52:58 Reason for Referral None Reported. 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 9 12:07:46 Bilatera l cataract s 33656537 Active [facility]Vani[facility] 9 12:07:46 Pancreat itis 08867564 Active [facility]Vani[facility] 9 12:07:46 Chronic diarrhea 075874981 Active [facility]ani[facility] 9 12:07:46 Anemia 754287322 Active [facility]Vani[facility] 9 12:07:46 Coronary arterios clerosis 81942748 Active [facility] 9 12:07:46 Impairme nt of balance 216551359 Active Jovita (Vani) Croley [facility] 9 12:07:46 Urinary tract infectio us disease 73607810 Active Jovita (Vani) Croley null, [facility] 9 12:07:46 Glaucoma 29311783 Active Jovita (Vani) Croley [facility] 9 12:07:46 Rheumato id arthriti s 33989667 Active [facility] 9 12:07:46 Acute poliomye litis 958855133 Active 1954 [facility]Vani[facility] 9 12:07:46 Neck pain 44711954 Active [facility] 9 12:07:46 Spinal stenosis 18441683 Active Jovita (Vani) Croley [facility] 9 12:07:46 Migraine 34126787 Active Jovita (Vani) Croley [facility] 9 12:07:46 Wears glasses 506754986 Active Jovita (Vani) Croley [facility] 9 12:07:46 Sinusiti s 26033489 Active Jovita (Vani) Croley [facility] 9 12:07:46 Peripher al nerve disease 367296189 Active Jovita (Vani) Croley [facility] 9 12:07:46 Gastroes ophageal reflux disease 774614453 Active [facility] 9 12:07:46 Deep venous thrombos is 811585031 Active Jovita (Vani) Croley [facility] 9 12:07:46 Hyperlip idemia 03206500 Active Jovita (Vani) Croley [facility] 9 12:07:46 Chronic headache disorder 796427623 Active 2018 Susan Colon [facility] 9 12:53:51 Neuropat hy 417144056 Active 2019 Jovita (Vani) Rody [facility] 0 12:46:05 Memory impairme nt 914165705 Active 2019 Jovita (Vani) Rody [facility] 0 12:46:19 Vertigo 002256806 Active 2020 Jovita (Vani) Rody [facility] 1 16:06:43 Parkinso n's disease 30375154 Active 2024 NEENA DEVI, DO [address] 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 9 12:07:46 Blood in urine 25400861 Active 2014 From Automate d Load;Pro vider: Zain , Josh;St atus: Active Jovita (Vani) Rody [facility] 9 12:07:46 Pain in right knee Active 2014 From Automate d Load;Pro vider: Zain , Josh;St atus: Active [facility]Vani) [facility] 12:07:[facility] Hyperten sive disorder 74493089 Active 2014 From Automate d Load;Pro vider: Josh Pittman;St atus: Active Not Available [facility] 6 23:35:13 Prolapse d lumbar interver tebral disc 273458758 Active 2014 From Automate d Load;Pro vider: Eloy Amezquita; Status: Active Jovita (Vani) Маринаumair [facility] 9 12:07:46 Abdomina l pain 23604165 Active 2014 From Automate d Load;Pro vider: Josh Pittman;St atus: Active Jovita (Vani) Rody [facility] 9 12:07:46 Pain 18683409 Active 2014 From Automate d Load;Pro vider: Josh Pittman;St atus: Active Jovita (Vani) Rody [facility] 9 12:07:45 Systemic lupus erythema tosus 83761214 Active 1989 Jovita (Vani) Маринаumair [facility] 9 12:07:46 Idiopath ic osteoart hritis 817682156 Active 2014 From Automate d Load;Pro vider: Herminia Orr;Status : Active Jovita (Vani) Rody [facility] 9 12:07:45 Pain in left knee Active 2014 From Automate d Load;Pro vider: Malu Luna;S tatus: Active Jovita (Vani) Rody [facility] 9 12:07:46 Migraine without aura, not refracto ry 551522469 Completed 201506/07/2019 From Automate d Load;Pro vider: Geronimo Dahl;St atus: Active Susan Colon [facility] 9 12:53:55 Lumbosac ral radiculo bob 1999517 Active 2015 From Automate d Load;Pro vider: Eloy Amezquita; Status: Active Jovita tsang (Camille) [facility] 9 12:07:46 Low back pain 908147495 Active 2014 Provider : Eloy Amezquita; Status: Active Jovita tsang (Camille) [facility] 9 12:07:46 Spinal stenosis of lumbar region 46739234 Active 2014 From Automate d Load;Pro vider: Eloy Amezquita; Status: Active Jovita tsang (Camille) [facility] 9 12:07:46 Notes:Some problems listed i n Document: #[id number] could not be added to this patient's chart. Please review this document and add these problems to the patient's chart manually as needed. Problem Notes None recorded. Procedures Surgical History Date Name Laterality Status Provider Name and Address Organization Details Recorded Time 11/14/19 25 dental surgical procedure completed [facility] 12/05/2024 11:13:30 09/18/20 24 Caudal CYNDI Addie completed JULIANNA MALONE MD [address] [place] [address], [phone], [facility] 09/18/2024 14:11:05 07/27/20 24 Joint Injection, Knee - Addie completed JULIANNA MALONE MD [address] [place] [address], [phone], [facility] 07/27/2024 13:58:38 07/25/20 24 Post Void Residual; Ultrasound completed FEDERICO NATION APRN [address] [place] [address], [phone], [facility] 07/25/2024 11:36:57 05/16/20 24 Caudal CYNDI Addie completed JULIANNA MALONE MD [address] [place] [address], [phone], [facility] 05/16/2024 12:49:14 04/20/20 24 Joint Injection, Knee - Addie completed JULIANNA MALONE MD [address] [place] [address], [phone], [facility] 04/20/2024 11:47:04 05/21/20 24 total knee replacement completed Shayy Pathak [facility] 05/16/2024 10:52:57 01/31/20 24 Joint Injection, Knee - Addie completed JULIANNA MALONE MD [address] [place], [address], [facility] 01/31/2024 15:34:35 01/20/20 24 Post Void Residual; Ultrasound completed RADHA JOHNSTON MD [address] [place] [address], [phone], [facility] 01/20/2024 11:50:18 01/11/20 24 Caudal CYNDI Addie completed JULIANNA MALONE MD [address] [place] [address], [phone], [facility] 01/11/2024 13:44:46 11/23/19 24 Post Void Residual; Ultrasound completed Chaparrita Gómez [facility] 11/23/2023 11:05:50 10/21/19 24 Joint Injection, Knee - Addie completed JULIANNA MALONE MD [address] [place], [address], [facility] 10/21/2023 13:59:42 10/07/19 24 Caudal [place]NDI [place] [address] [place] [address], [phone], [facility] 10/07/2023 12:03:23 08/31/20 23 Trigger Point Injections - Addie completed ZEHRA LARIOS PA-C [address] [place], [address], [facility] 08/31/2023 15:18:07 07/12/20 23 Lumbar Transforaminal Epidural Injection - Addie completed JULIANNA MALONE MD [address] [place], [phone], [facility] 07/12/2023 12:44:44 01/28/20 23 Monovisc Injection completed HEAVEN GRAHAM PA-C [address] [facility] [place], [address], [facility] 02/09/2023 13:19:06 08/06/20 20 LIGATION OR BIOPSY, TEMPORAL ARTERY (SURG) completed Iraida Beyer [facility] 08/07/2020 14:34:42 Back Surgery completed Kati Johnsonholz [facility] 05/10/2018 14:27:13 Shoulder joint surgery completed Kati Johnsonholz [facility] 05/10/2018 14:27:30 Tubal Ligation completed Natalia Paul [facility] 11/17/2023 11:49:05 placement of stent in cardiac conduit completed Natalia Paul [facility] 11/17/2023 11:49:20 Shoulder joint surgery completed Shayy Pathak [facility] 05/16/2024 10:52:23 total knee replacement completed Natalia Joao [facility] 03/02/2025 10:48:08 Imaging Results None recorded. Procedure Notes None recorded. Medical Equipment None Reported. Allergies Allergen ID Allergen Name Allergen Category Reaction Reaction Severity Criticality Documentation Date Start Date Code Code System Note Provider Name and Address Organization Details Recorded Time 331891 Compazine medicatio n Not available Not available Not available 08/13/2016201254 6 RxNorm Comme nt: Creat ed By: Deny tamayo Date: 07/19 10:31 :05 AM; [facility] 3 13:19:43 986214 acetamino phen / oxycodone medicatio n hallucina tions Not available Not available 08/13/20162012 04762 3 RxNorm [facility] 3 13:19:26 723919 aspirin medicatio n Not available Not available Not available 08/13/20162015 1191 RxNorm Comme nt: Creat ed By: Owen coffman Date: 2015 2:57: 49 PM; Natalia Paul null, [facility] 3 10:56:39 545978 prochlorp erazine medicatio n seizure Not available Not available 06/07/2019 8704 RxNorm Paddy zine Natalia Paul [facility] 3 13:19:09 725214 aspirin medicatio n Not available Not available Not available 06/07/2019 1191 RxNorm 'Rhina l funct ion tests abnor mal'. Natalia Miller [facility] 3 13:19:59 Medications Name Sig Start Date Stop Date Status Note LastModified by Organization Details LastModified Time Compound Rx Alternati ves General Pain Cream Apply 1-2 grams to the affected area 3-4 times daily 2023 active Not Available Not Available Not Avai lable Compound Rx Alternati ves General Pain Cream Apply 1-2 grams to the affected area 3-4 times daily 2023 active Not Available Not Available Not Avai lable Compound Rx Alternati ves General Pain Cream Apply 1-2 grams to the affected area 3-4 times daily 2023 active Not Available Not Available Not Avai lable Compound Rx Alternati ves General Pain Cream Apply 1-2 grams to the affected area 3-4 times daily 2023 active Not Available Not Available Not Avai lable Compound Rx Alternati ves General Pain Cream Apply 1-2 grams to the affected area 3-4 times daily 2023 active Not Available Not Available Not Avai lable Compound Rx Alternati ves General Pain Cream Apply 1-2 grams to the affected area 3-4 times daily 2023 active Not Available Not Available Not Avai lable Compound Rx Alternati ves General Pain Cream Apply 1-2 grams to the affected area 3-4 times daily 2023 active Not Available Not Available Not Avai lable Compound Rx Alternati ves General Pain Cream Apply 1-2 grams to the affected area 3-4 times daily 2023 active Not Available Not Available Not Avai lable amantadin e HCl 100 mg tablet Take 1 tablet every day by oral route. 03/02 completed Not Available Not Available Not Available cyclobenz aprine 10 mg tablet Take 1 tablet by mouth three times daily as needed 03/02 completed Not Available Not Available Not Available metolazon e 2.5 mg tablet 11/17 completed Not Available Not Available Not Available methocarb florentino 500 mg tablet TAKE ONE TABLET BY MOUTH TWICE DAILY 11/02 completed Not Available Not Available Not Available neomycin- polymyxin -hydrocor t 3.5 mg/mL-10, 000 unit/mL-1 % ear solution instill 4 drops into BOTH ears TWICE DAILY FOR 7 DAYS 11/17 completed Not Available Not Available Not Available nystatin 100,000 unit/mL oral suspensio n TAKE 4 ML BY MOUTH 4 TIMES DAILY SWISH AND SPIT active Not Available Not Available No t Available carvedilo l 6.25 mg tablet TAKE ONE TABLET BY MOUTH TWICE DAILY active Not Available Not Available No t Available prednison e 10 mg tablet active Not Available Not Available Not Available venlafaxi ne ER 75 mg capsule,e xtended release 24 hr active Not Available Not Available Not Available oxybutyni n chloride ER 15 mg tablet,ex tended release 24 hr TAKE ONE TABLET BY MOUTH EVERY DAY FOR OVERACTI VE FOR BLADDER 01/30 completed Not Available Not Available Not Available doxycycli ne hyclate 100 mg capsule 02/08 completed Not Available Not Available Not Available cefuroxim e axetil 250 mg tablet Take 1 tablet every 12 hours by oral route for 5 days. 11/16 completed Not Available Not Available Not Available carvedilo l 12.5 mg tablet TAKE ONE TABLET BY MOUTH TWICE DAILY (TAKE WITH 6.25MG TABLET) 02/08 completed Not Available Not Available Not Available bumetanid e 2 mg tablet 02/08 completed Not Available Not Available Not Available Vitamin C 500 mg tablet TAKE 1 TABLET BY MOUTH EVERY DAY active Not Available Not Available No t Available cetirizin e 10 mg tablet TAKE ONE TABLET BY MOUTH EVERY DAY active Not Available Not Available No t Available oxybutyni n chloride ER 10 mg tablet,ex tended release 24 hr Take 1 tablet every day by oral route in the morning for 90 days. 2023 active Not Available Not Available Not Avai lable azithromy jessica 250 mg tablet active Not Available Not Available No t Available ibuprofen 800 mg tablet active Not Available Not Available Not Available nystatin 100,000 unit/gram topical ointment 11/16 completed Not Available Not Available Not Available tizanidin e 4 mg tablet TAKE ONE TABLET BY MOUTH EVERY 6 HOURS NEEDED 11/02 completed Not Available Not Available Not Available fluconazo le 150 mg tablet 06/10 completed Not Available Not Available Not Available citalopra m 10 mg tablet TAKE ONE TABLET BY MOUTH EVERY DAY 03/02 completed Not Available Not Available Not Available Ditropan XL 5 mg tablet,ex tended release Daily active Frequenc y: daily;Me dication Descript ion: oxybutyn in; Dosage:1 ; Route:or al; refills: 12; Quantity :30 tablet, extended release Not Available Not Available Not Available hydrocodo ne 5 mg-acetam inophen 325 mg tablet TAKE ONE TABLET BY MOUTH EVERY 4 HOURS NEEDED MAY CAUSE DROWSINE SS 11/02 completed Not Available Not Available Not Available mycopheno late mofetil 250 mg capsule 06/10 completed Not Available Not Available Not Available sucralfat e 100 mg/mL oral suspensio n TAKE 1 TEASPOON FUL (5 ML) BY MOUTH BEFORE MEALS AND AT BEDTIME DIRECTED 02/08 completed Not Available Not Available Not Available donepezil 10 mg tablet Daily 2024 active Not Available Not Available Not Avai lable ondansetr on HCl 4 mg tablet TAKE ONE TABLET BY MOUTH EVERY 8 HOURS NEEDED FOR NAUSEA AND VOMITING active Not Available Not Available No t Available famotidin e 40 mg tablet TAKE ONE TABLET BY MOUTH EVERY DAY AT BEDTIME active Not Available Not Available No t Available prednison e 20 mg tablet TAKE ONE TABLET BY MOUTH ONCE DAILY FOR 7 DAYS -- FINISH ALL MEDICINE -- --TAKE WITH FOOD-- 11/17 completed Not Available Not Available Not Available prednison e 5 mg tablet Take 1 tablets daily 2024 active Not Available Not Available Not Avai lable metolazon e 5 mg tablet TAKE ONE TABLET BY MOUTH EVERY OTHER DAY active Not Available Not Available No t Available travopros t 0.004 % eye drops INSTILL ONE DROP into right eye EVERY DAY AT BEDTIME 11/16 completed Not Available Not Available Not Available Accu-Chek Softclix Lancets USE TO test blood sugar ONCE DAILY 02/07 completed Not Available Not Available Not Available metronida zole 500 mg tablet TAKE ONE TABLET BY MOUTH THREE TIMES DAILY FOR 10 DAYS -- FINISH ALL MEDICINE -- 02/08 completed Not Available Not Available Not Available Klor-Con 20 mEq oral packet Daily active Duration : 30 days;Ibrahima quency: daily;Me dication Descript ion: noreen mckeon chloride ; Dosage:2 ; Route:or al; refills: 0; Quantity :60 powder for reconsti tution Not Available Not Available Not Available clopidogr el 75 mg tablet TAKE ONE TABLET BY MOUTH EVERY DAY active Not Available Not Available No t Available chlorthal idone 25 mg tablet TAKE ONE TABLET BY MOUTH EVERY DAY 02/16 completed No longer taking 08/31/24 Not Available Not Available Not Available levofloxa jessica 250 mg tablet TAKE ONE TABLET BY MOUTH EVERY DAY FOR 7 DAYS 11/16 completed Finished 08/31/24 Not Available Not Available Not Available calcium 600 mg (as carbonate )-vitamin D3 5 mcg (200 unit) tablet 1 1 by oral route. 2014 active Not Available Not Available Not Avai lable allopurin ol 100 mg tablet Take 1 tablet every day by oral route. 2024 active Not Available Not Available Not Avai lable ciproflox acin 500 mg tablet active Not Available Not Available No t Available sulfameth oxazole 800 mg-trimet hoprim 160 mg tablet active Not Available Not Available Not Available hydrocodo ne 10 mg-acetam inophen 325 mg tablet Take 1 tablet every 6 hours by oral route as needed. 11/16 completed Not Available Not Available Not Available omeprazol e 40 mg capsule,d elayed release TAKE ONE CAPSULE BY MOUTH EVERY DAY active Not Available Not Available No t Available aspirin 81 mg tablet,de layed release TAKE ONE TABLET BY MOUTH TWICE DAILY active Not Available Not Available No t Available leflunomi de 20 mg tablet TAKE ONE TABLET BY MOUTH EVERY DAY 11/17 completed Not Available Not Available Not Available tramadol 50 mg tablet active Not Available Not Available Not Available acetamino phen 500 mg tablet TAKE ONE TABLET BY MOUTH TWICE DAILY 03/02 completed Not Available Not Available Not Available bupropion HCl SR 100 mg tablet,12 hr sustained -release 02/08 completed Not Available Not Available Not Available vancomyci n 125 mg capsule TAKE ONE CAPSULE BY MOUTH FOUR TIMES DAILY DIRECTED FOR FOURTEEN DAYS -- FINISH ALL MEDICINE -- 02/08 completed Not Available Not Available Not Available carvedilo l 3.125 mg tablet Two times a day active Not Available Not Available No t Available pantopraz ole 20 mg tablet,de layed release TAKE ONE TABLET BY MOUTH EVERY DAY 02/16 completed no longer taking dose increase d Not Available Not Available Not Available MS Contin 15 mg tablet,ex tended release 06/06 completed Not Available Not Available Not Available ciclopiro x 8 % topical solution active Not Available Not Available Not Available sodium chloride 0.9 % irrigatio n solution active Not Available Not Available Not Available bupropion HCl 100 mg tablet TAKE ONE TABLET BY MOUTH EVERY MORNING AND TAKE TWO TABLETS BY MOUTH EVERY DAY AT BEDTIME active Not Available Not Available No t Available amoxicill in 875 mg tablet Take 1 tablet every 12 hours by oral route. 11/16 completed Not Available Not Available Not Available alprazola m 0.25 mg tablet 1/2 or 1 tablet to stop shaking and vertigo and may repeat the dose in 4 hours if needed. Maximum is 2 whole tablets per day 02/16 completed Not Available Not Available Not Available potassium chloride ER 20 mEq tablet,ex tended release(p art/cryst ) TAKE ONE TABLET BY MOUTH TWICE DAILY active Not Available Not Available No t Available primidone 250 mg tablet TAKE ONE TABLET BY MOUTH EVERY NIGHT DIRECTED active Not Available Not Available No t Available magnesium oxide 400 mg (241.3 mg magnesium ) tablet TAKE ONE TABLET BY MOUTH EVERY DAY active Not Available Not Available No t Available metoclopr amide 5 mg tablet active Not Available Not Available No t Available clindamyc in 1 % topical gel active Not Available Not Available Not Available nifedipin e ER 60 mg tablet,ex tended release 24 hr 02/08 completed Not Available Not Available Not Available meclizine 25 mg tablet TAKE ONE TABLET BY MOUTH THREE TIMES DAILY active Not Available Not Available No t Available timolol maleate 0.25 % eye drops Instill 1 [drp] by ophthalm ic route. 02/08 completed Not Available Not Available Not Available hydrocodo ne 7.5 mg-acetam inophen 325 mg tablet TAKE ONE TABLET BY MOUTH EVERY 6 HOURS NEEDED MAY CAUSE DROWSINE SS 06/27 completed Not Available Not Available Not Available cephalexi n 500 mg capsule TAKE ONE CAPSULE BY MOUTH EVERY DAY FOR uti preventi on 07/12 completed Not Available Not Available Not Available pantopraz ole 40 mg tablet,de layed release TAKE ONE TABLET BY MOUTH EVERY DAY active Not Available Not Available No t Available simvastat in 20 mg tablet TAKE ONE TABLET BY MOUTH EVERY DAY AT BEDTIME 11/17 completed Not Available Not Available Not Available acyclovir 5 % topical ointment APPLY TO THE AFFECTED AREA(S) BY TOPICAL ROUTE 3 TIMES PER DAY FOR 5 DAYS 11/17 completed Not Available Not Available Not Available oseltamiv ir 75 mg capsule active Not Available Not Available Not Available lisinopri l 10 mg tablet TAKE ONE TABLET BY MOUTH TWICE DAILY 11/17 completed Not Available Not Available Not Available prednison e 50 mg tablet 11/16 completed Not Available Not Available Not Available hyoscyami ne 0.125 mg sublingua l tablet dissolve 1 TABLET UNDER THE TONGUE BEFORE meals AND AT bedtime active Not Available Not Available No t Available lidocaine 5 % topical patch APPLY 1-2 PATCHES TOPICALL Y TO THE AFFECTED AREA ONCE DAILY AND LEAVE IN PLACE FOR 12 HOURS, THEN REMOVE AND LEAVE OFF FOR 12 HOURS active Not Available Not Available No t Available losartan 25 mg tablet active Not Available Not Available Not Available methimazo le 5 mg tablet TAKE ONE TABLET BY MOUTH EVERY 8 HOURS active Not Available Not Available No t Available docusate sodium 100 mg capsule TAKE ONE CAPSULE BY MOUTH TWICE DAILY 03/02 completed Not Available Not Available Not Available gabapenti n 300 mg capsule TAKE ONE CAPSULE BY MOUTH FIVE TIMES DAILY MAY CAUSE DROWSINE SS active Not Available Not Available No t Available omeprazol e 20 mg capsule,d elayed release TAKE ONE CAPSULE BY MOUTH TWICE DAILY 11/17 completed Not Available Not Available Not Available bumetanid e 1 mg tablet TAKE THREE TABLETS BY MOUTH EVERY DAY FOR fluid active Not Available Not Available No t Available dorzolami de 22.3 mg-timolo l 6.8 mg/mL eye drops instill 1 drop in each eye TWICE DAILY DIRECTED active Not Available Not Available No t Available hydrocort isone 2.5 % topical cream APPLY TOPICALL Y TO THE AFFECTED AREA(S) TWICE DAILY active as needed Not Available Not Available Not Available monteluka st 10 mg tablet TAKE ONE TABLET BY MOUTH EVERY DAY active Not Available Not Available No t Available Xalatan 0.005 % eye drops Instill 1 [drp] by ophthalm ic route. 08/02 completed Not Available Not Available Not Available furosemid e 20 mg tablet active Not Available Not Available Not Available azelastin e 137 mcg (0.1 %) nasal spray 02/07 completed Not Available Not Available Not Available fluticaso ne 100 mcg-salme terol 50 mcg/dose blistr powdr for inhalatio n Inhale 1 puff twice a day by inhalati on route. 06/10 completed Not Available Not Available Not Available cefuroxim e axetil 500 mg tablet Take 1 tablet every 12 hours by oral route for 14 days. active Not Available Not Available No t Available levofloxa jessica 500 mg tablet 02/08 completed Not Available Not Available Not Available methylpre dnisolone 4 mg tablets in a dose pack TAKE ACCORDIN G TO PACKAGE INSTRUCT IONS --TAKE WITH FOOD-- -- FINISH ALL MEDICINE -- 11/02 completed Not Available Not Available Not Available albuterol sulfate HFA 90 mcg/actua tion aerosol inhaler INHALE TWO PUFFS BY MOUTH EVERY 4 HOURS NEEDED FOR wheezing active Not Available Not Available No t Available timolol maleate 0.5 % eye drops active Not Available Not Available Not Available colchicin e 0.6 mg tablet Take 1 tablet every day by oral route. 2024 active Not Available Not Available Not Avai lable carbidopa 25 mg-levodo pa 100 mg tablet TAKE ONE TABLET BY MOUTH THREE TIMES DAILY may take with OR without food 2024 active Not Available Not Available Not Avai lable oxybutyni n chloride 5 mg tablet 06/10 completed Not Available Not Available Not Available nifedipin e ER 60 mg tablet,ex tended release Take 1 tablet every day by oral route. 02/08 completed Not Available Not Available Not Available cefdinir 300 mg capsule TAKE ONE CAPSULE BY MOUTH EVERY TWELVE HOURS FOR 10 DAYS -- FINISH ALL MEDICINE -- 11/16 completed Finished 08/31/24 Not Available Not Available Not Available fluticaso ne propionat e 50 mcg/actua tion nasal spray,delilah pension INSTILL 1 TO 2 SPRAYS IN EACH NOSTRIL EVERY DAY DIRECTED active Not Available Not Available No t Available clotrimaz ole 1 % topical cream APPLY CREAM TOPICALL Y TO AFFECTED AREA TWICE DAILY FOR 14 DAYS 11/16 completed Not Available Not Available Not Available dicyclomi ne 10 mg capsule TAKE ONE CAPSULE BY MOUTH BEFORE MEALS AND AT BEDTIME NEEDED FOR DIARRHEA 03/02 completed Not Available Not Available Not Available loratadin e 10 mg tablet 06/06 completed Not Available Not Available Not Available metoclopr amide 10 mg tablet TAKE ONE TABLET BY MOUTH TWICE DAILY --TAKE WITH FOOD-- 11/17 completed Not Available Not Available Not Available dorzolami de 2 % eye drops Instill 1 [drp] by ophthalm ic route. 11/16 completed Not Available Not Available Not Available amoxicill in 500 mg-potass ium clavulana te 125 mg tablet TAKE ONE TABLET BY MOUTH TWICE DAILY FOR 7 DAYS -- FINISH ALL MEDICINE -- 05/16 completed Not Available Not Available Not Available magnesium 250 mg (as magnesium oxide) tablet Daily active Frequenc y: daily;Me dication Descript ion: magnesiu m oxide; Dosage:1 ; Route:or al; refills: 0 Not Available Not Available Not Available Vitamin B-12 ER 1,000 mcg tablet,ex tended release TAKE ONE TABLET BY MOUTH EVERY DAY active Not Available Not Available No t Available Vitamin D3 25 mcg (1,000 unit) capsule TAKE 1 CAPSULE BY MOUTH TWICE DAILY active Not Available Not Available No t Available cyclobenz aprine 5 mg tablet Take 1 tablet 3 times a day by oral route as needed. 02/20 completed Not Available Not Available Not Available rosuvasta tin 20 mg tablet TAKE ONE TABLET BY MOUTH EVERY DAY active Not Available Not Available No t Available memantine 10 mg tablet 1 in am x 1 month, then 1 bid thereaft er 2024 active Not Available Not Available Not Avai lable hydrocodo ne 10 mg-acetam inophen 300 mg tablet Take 1 tablet every 6 hours by oral route. 02/16 completed PRN Not Available Not Available Not Available nitrofura ntoin monohydra te/macroc rystals 100 mg capsule TAKE ONE CAPSULE BY MOUTH EVERY TWELVE HOURS -- FINISH ALL MEDICINE -- --TAKE WITH FOOD-- 02/08 completed Not Available Not Available Not Available magnesium 02/08 completed Not Available Not Available Not Available calcium carbonate Three times a day active Frequenc y: tid;Medi cation Descript ion: calcium carbonat e; Route:or al; refills: 0; Quantity :3 tablet, chewable Not Available Not Available Not Available aspirin active Medicati on Descript ion: aspirin; refills: 0 Not Available Not Available Not Available Flonase 1 1. 06/06 completed Not Available Not Available Not Available Lovenox 06/06 completed Not Available Not Available Not Available iron 11/17 completed Not Available Not Available Not Available methimazo le 11/16 completed Not Available Not Available Not Available Vitamin D3 active Medicati on Descript ion: cholecal ciferol; Route:or al; refills: 0 Not Available Not Available Not Available cholecalc iferol (vitamin D3) 25 mcg (1,000 unit) tablet TAKE ONE TABLET BY MOUTH TWICE DAILY active Not Available Not Available No t Available FeroSul 325 mg (65 mg iron) tablet 02/08 completed Not Available Not Available Not Available Protonix 40 mg granules delayed-r elease packet Take 1 1 by oral route. 08/02 completed Not Available Not Available Not Available diclofena c 1 % topical gel APPLY TOPICALL Y TO THE AFFECTED AREA(S) THREE TIMES DAILY NEEDED FOR LEG pain DIRECTED active Not Available Not Available No t Available cetirizin e 10 mg capsule Take by oral route. 08/02 completed Not Available Not Available Not Available Suprep Bowel Prep Kit 17.5 gram-3.13 gram-1.6 gram oral solution take DIRECTED 11/16 completed Not Available Not Available Not Available Ferate 240 mg (27 mg iron) tablet TAKE ONE TABLET BY MOUTH EVERY DAY active Not Available Not Available No t Available Jardiance 10 mg tablet TAKE ONE TABLET BY MOUTH EVERY DAY 02/08 completed Not Available Not Available Not Available Jardiance 25 mg tablet TAKE ONE TABLET BY MOUTH EVERY DAY active Not Available Not Available No t Available Mitigare 0.6 mg capsule Take 1 capsule every day by oral route. 2024 active Not Available Not Available Not Avai lable Accu-Chek Guide test strips USE TO test blood sugar ONCE DAILY 02/07 completed Not Available Not Available Not Available Benlysta 200 mg/mL subcutane ous auto-inje ctor Inject 1 mL every week by subcutan eous route. 2024 active Not Available Not Available Not Avai lable Accu-Chek Guide Me Glucose Meter USE TO test blood sugar ONCE DAILY 02/07 completed Not Available Not Available Not Available Lagevrio 200 mg capsule (EUA) TAKE 4 CAPSULES BY MOUTH EVERY 12 HOURS FOR 5 DAYS 03/02 completed Not Available Not Available Not Available Vitals Date Recorded Body height Body mass index (BMI) Body weight Respiratory rate Heart rate Oxygen saturation Oxygen saturation in Arterial blood by Pulse oximetry Systolic And Diastolic Provider Name and Address Organization Details Last Updated DateTime 5 162.56 cm 36.2 kg/m2 52600.9 9 g 16 /min 81 /min 97 % 97 % 96/50 mm[Hg] Felicity [facility] 5 10:41:19 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 Question Answer Notes LastModified by [employer] Details LastModified Time Tobacco Smoking Status [facility] 14:27:07 How Much Tobacco Do You Chew? None [email or web address] Information not available 06/07/2019 Which Illicit Or Recreational Drugs Have You Used? No [email or web address] Information not available 06/06/2020 Marital Status Junior [email or web address] Informatio n not available 06/07/2019 What Was The Date Of Your Most Recent Tobacco Screening? 03/06/2025 [email or web address] Information not available 03/06/2025 What Is Your Relationship Status? Information not available 08/31/2024 How Much Tobacco Do You Smoke? No Information not available 06/07/2019 Sex: Unknown Functional Status Question Answer Note LastModified by [employer] Details LastModified Time What is your level of alcohol consumption? None [email or web address] Information not available 06/07/2019 Do you or have you ever used smokeless tobacco? Never used smokeless tobacco [email or web address] Information not available 06/07/2019 Are you currently employed? No [email or web address] Information not available 08/31/2024 What is your occupation? retired [email or web address] Information not available 06/07/2019 Do you or have you ever used e-cigarettes or vape? Never used electronic cigarettes [email or web address] Information not available 06/07/2019 Mental Status None recorded. Family History Relationship Description Onset Age of this Age Resolved Age Notes LastModified by Organization Details LastModified Time Unspecified Relation Hypertensive disorder [email or web address] Not available 05/10 14:28:12 Unspecified Relation Myocardial infarction [email or web address] Not available 04/21 14:28:18 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 Condition Response Blood Transfusion Y Depression Y COPD Y Anxiety Disorder Y Arthritis Y Blood Clot Y Cancer N Stroke N Neurologic Disorder N Heart Problems Y Bleeding Disorder N Sleep Disorder Y Thyroid Disorder Y Hepatitis Y Colon/Rectal Disorders N Glaucoma Y Hearing Loss Y Chronic Kidney Disease Y Blood Thinners Y Liver Disease Y Parkinson's Disease Y Alzheimer's Y Osteoporosis/Osteopenia Y Stomach trouble Y Heart Attack (SD) N Diabetes N Sleep Apnea Y Heart Disease Y Hypertension Y Gynecological HistoryNo gynecological history recorded. Obstetrics History GPAL:G 0 P 0 0 0 0 Immunizations Vaccine Type Date Status Note Provider Nam e and Address Organization Details Recorded Time Influenza, split virus, quadrivalent, preservative 8 completed Wendie Rozina [facility] 06/07/2019 11:53:21 pneumococcal, unspecified formulation 7 completed Wendie Roznia [facility] 06/07/2019 11:53:21 Influenza, split virus, quadrivalent, preservative 0 completed Jovita Fine (Camille) [facility] 06/06/2020 12:05:59 SARS-COV-2 (COVID-19) vaccine, UNSPECIFIED 1 completed Mare Bledsoe [facility] 03/18/2021 09:39:59 SARS-COV-2 (COVID-19) vaccine, UNSPECIFIED 1 completed Mare Bledsoe [facility] 03/18/2021 09:40:02 Influenza, split virus, quadrivalent, preservative 0 completed Mare Bledsoe [facility] 03/18/2021 09:40:14 Past Encounters Encounter ID Performer Location Encounter Start Date Encounter Closed Date Diagnosis/Indication Diagnosis SNOMED-CT Code Diagnosis ICD10 Code Diagnosis Note [id number] NEENA DEVI DO NEUROLOGY [address] [place] [address] 02/16/2025 10:29:30 02/17/2025 04:44:56 Parkinson's disease 45372991 G20.A1 Chronic condition that is stable. She is on CD/LD and amantadine . She finds these medication s at the current dose are controllin g her tremors quite well. She does not need refills today. Memory impairment 644571 006 R41.3 Hx of MCI/early dementia. She has been on donepezil and memantine for many years. She has not had any significan t decline in daily functionin g since her last visit. She gets her medication s in daily pill packs from her pharmacy. She does not drive. She has a caregiver in her home 5 days a week during the daytime for assistance . Idiopathic peripheral neuropathy 82843097 G60.9 Chronic condition that is secondary to degenerati ve disease in her low back. She is currently prescribed gabapentin and finds this effective for her neuropathi c pain. She has had prior nerve testing. She would like me to request those results to review. Health Concerns Section Related Observation LastModified by Organization Detai ls LastModified Time None Recorded Concern Status LastModified by Organization Details LastModified Time None Recorded Payers Encounter Date Sequence Insurance Name Policy Number Policy Pearl Covered Member ID Pearl Member ID Guarantor Name 02/16/2025 1 [employer] (MEDICARE REPLACEMENT/ ADVANTAGE - PPO) Yoko Jerez [id number] Yoko Jerez 02/16/2025 2 [place] [employer] - FFS/TRADITIO NAL Yoko Jerez [id number] Yoko Jerez Notes Date Note Type Note Provider Name and Address Organization Details Recorded Time 02/16/2025 text/html 79 y/o right downey ded female here for neurologic follow up regarding Parkinson's disease and dementia. She is accompanied by a caregiver. She has an dining host 5 days a week to help with bathing/dressing/meals and medications.This is my first time seeing her. She was diagnosed with PD in 2020. She recalls her initial symptoms were tremors.She currently is prescribed CD/LD 25/100 1 tablet three times a day and Amantadine 100mg daily.She feels her medications are working well. She denies any side effects.She does mention that she also still takes primidone for tremors. Her PCP has been refilling this prescription.She denies any new or worsening PD symptoms since her last visit with Dr Dahl. She was diagnosed with MCI/dementia in 2019.She is currently prescribed donepezil 10mg daily and memantine 10mg bid. She is compliant with the medications, she tolerates them well. She feels her memory is stable. She does have assistance with meals. She does not drive. She manages her own medication. her pharmacy does daily pill packs but she does not require any reminders or supervision to take her medication. She mentions that she had nerve testing done on her legs in the past that shows nerve damage. Her spinal surgeon started her on gabapentin years ago due to the nerve damage. her PCP now manages the refills. She does feel that this medication help control her pain.She does use a walker for stability as she does have poor balance. DR DAHL OFFICE NOTE: (10/04/24)Recheck for Parkinson's Oegdbwo86 year old woman from [place]. present with friend/caregiver Rossi Jimenez Parkinson's DiseaseShe has impaired gait and walks with a front wheeled walker.she has as right knee problem and wearing brace today.She states she feels good today. Current meds:She takes carbidopa 25 mg-levodopa 100 mg TID (8am-4pm-8pm)Amantadin e 100 mg 1 tab in morning.Donepezil 10mg 2 tab in morningmemantine 10 mg BID. NEENA DEVI, DO [address] [place], [address], [facility] 02/16/2025 12:18:48 OBGyn Episode No OBEpisode recorded.
--- OUTSIDE RECORDS SUMMARY | 2025-04-02 10:22 | XMS_ITS | Clinical Summary ---
Author Organization [employer] ([place], [place], [place], [place]) Address [address] [place] [address] Care Team Providers Care Dye Colorist Formulator Name Role Phone Miller Hazel MD Primary Care Provider [phone] Allergies Active Allergy Reactions Criticality Noted Date Comments Aspirin 06/30/2023 Prochlorperazine 06/30/2023 Oxycodone-Acetaminophen 06/30/2023 Medications rosuvastatin (CRESTOR) 20 MG tablet Take 1 tablet (20 mg total) by mouth daily. 3 Active primidone (MYSOLINE) 250 MG tablet Take 1 tablet (250 mg total) by mouth nightly. 3 Active montelukast (SINGULAIR) 10 mg tablet Take 1 tablet (10 mg total) by mouth daily. 3 Active methIMAzole (TAPAZOLE) 5 MG tablet Take 1 tablet (5 mg total) by mouth 3 (three) times daily. 3 Active memantine (NAMENDA) 10 MG tablet Take 1 tablet (10 mg total) by mouth 2 (two) times daily. 3 Active gabapentin (NEURONTIN) 300 MG capsule Take 1 capsule (300 mg total) by mouth 6 (six) times daily. 3 Active donepeziL (ARICEPT) 10 MG tablet Take 1 tablet (10 mg total) by mouth nightly. 3 Active carbidopa-levod opa (SINEMET) 25-100 mg per tablet Take 1 tablet by mouth 3 (three) times daily. 3 Active bumetanide (BUMEX) 1 MG tablet Take 3 tablets (3 mg total) by mouth daily. 3 Active allopurinoL (ZYLOPRIM) 100 MG tablet Take 1 tablet (100 mg total) by mouth daily. 3 Active colchicine, gout, (Mitigare) 0.6 mg capsule Take 1 capsule (0.6 mg total) by mouth daily. Active fluticasone propionate (FLONASE) 50 mcg/actuation nasal spray 1 spray by Nasal route daily. Active ascorbic acid, vitamin C, (ascorbic acid with elsa hips) 500 MG tablet Take 1 tablet (500 mg total) by mouth daily. Active meclizine (ANTIVERT) 25 MG tablet Take 1 tablet (25 mg total) by mouth 3 (three) times daily as needed for Dizziness. Active cholecalciferol , vitamin D3, 25 mcg (1,000 unit) capsule Take 1 capsule (1,000 Units total) by mouth 2 (two) times daily. Active albuterol HFA (VENTOLIN HFA) 90 mcg/actuation inhaler Inhale 2 puffs by mouth via inhaler every 4 (four) hours as needed for Wheezing. Active carvediloL (COREG) 6.25 MG tablet Take 1 tablet (6.25 mg total) by mouth 2 (two) times daily with breakfast and dinner. Active buPROPion (WELLBUTRIN) 100 MG tablet Take 1 tablet (100 mg total) by mouth in the morning. Active buPROPion (WELLBUTRIN) 100 MG tablet Take 2 tablets (200 mg total) by mouth nightly. Active dorzolamide-willa oloL (COSOPT) 22.3-6.8 mg/mL ophthalmic solution Place 1 drop into both eyes 2 (two) times daily. Active potassium chloride SA (K-DUR,KLOR-CON -M) 20 MEQ tablet Take 1 tablet (20 mEq total) by mouth 2 (two) times daily. Active empagliflozin (Jardiance) 25 mg tablet Take 1 tablet (25 mg total) by mouth daily. Active cetirizine (ZyrTEC) 10 MG tablet Take 1 tablet (10 mg total) by mouth daily. Active aspirin 81 MG EC tablet Take 1 tablet (81 mg total) by mouth daily. Active multivitamin per tablet Take 1 tablet by mouth daily. Active zinc gluconate 50 mg tablet Take 1 tablet (50 mg total) by mouth daily. Active omeprazole (PriLOSEC) 40 MG capsule Take 1 capsule (40 mg total) by mouth daily. Active clopidogreL (PLAVIX) 75 mg tablet Need hold plavix for 5 days before lumber injection. 0 Active Active Problems Problem Noted Date Diagnosed Date Back pain without radiation 06/30/2023 Family History 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 Relation Name Comments Cancer Brother Depression Father Arthritis Mother Hypertension Mother Liver disease Mother Alcohol abuse Sister Arthritis Sister Cancer Sister Heart disease Sister Hypertension Sister Kidney disease Sister Stroke Sister Relation Name Status Comments Brother Father Mother Sister 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 Tobacco Use Types Packs/Day Years Used Date Smoking Tobacco: Former Cigarettes Q uit: 02/18/1991 Passive Smoke Exposure: Never Smokeless Tobacco: Never Tobacco Cessation:Counseling Given: Not Answered Alcohol Use Standard Drinks/Week Comments Not Currently 0 (1 standard drink = 0.6 oz pur e alcohol) Food Insecurity Answer Date Recorded Food run out past 12 months Not on file 09/20 Food did not last past 12 months Not on file 10/01/2023 Employment Answer Date Recorded Help finding and keeping a job Not on file 0 10/01/2023 Family and Community Support Answer Albert e Recorded Help with Day to Day Activities Not on file 10/01/2023 Feeling Lonely or Isolated Not on file 10/01 Educational Attainment Answer Date Arnaud rded Speak language other than [place]er at home Not on file 10/01/2023 Want help with school or training Not on file 10/01/2023 Substance Use Answer Date Recorded Used prescription meds for non-medical reasons N ot on file 10/01/2023 Used illegal drugs past 12 months Not on file 10/01/2023 Comments No Sex and Gender Information Value Date Recorded Sex Assigned at Not on file Legal Sex Female 7:28 PM CDT Gender Identity Not on file Sexual Orientation Not on file Last Filed Vital Signs Vital Sign Reading Time Taken Comments Blood Pressure 157/93 07/06/2023 9:22 AM EDT Pulse 81 07/06/2023 9:22 AM EDT Temperature 36.2 C (97.2 F) 07/06/2023 9:22 AM EDT Respiratory Rate 16 07/06/2023 9:22 AM EDT Oxygen Saturation 97% 07/06/2023 9:22 AM EDT Inhaled Oxygen Concentration - - Weight 88 kg (194 lb) 06/30/2023 3:38 PM EDT Height 157.5 cm (5' 2 ) 06/30/2023 3:38 PM EDT Body Mass Index 35.48 06/30/2023 3:38 PM EDT Plan of Treatment Health Maintenance Due Date Last Done Comments DXA SCAN 1945 Depression Screening (12+) 1959 Hepatitis C Screening 1965 DTAP/TDAP/TD VACCINES (1 - Tdap) 1966 Pneumococcal 50+ years (2 of 2 - PPSV23) 10/02/2020 10/02/2019 Respiratory Syncytial Virus (RSV) Adult or (1 - 1-dose 75+ series) 2022 Medicare Initial AWV [id number] 09/21/2023 COVID-19 VACCINE (8 - 2023-2 5 season) 2024 04/23/2022, 12/18/2020, 12/18/2020, Additional history exists Tobacco Cessation Counseling and Screening (12+) 06/30/2024 06/30/2023 Falls Risk Screening 09/20/2024 Influenza Vaccine (#1) 2025 , 08/19/2022, 06/08/2022, Additional history exists Shingles Vaccine (Zoster) Completed 05/09/2020, 05/2019 Insurance [employer] MEDICARE PPO Member Subscriber Plan / Payer (Ef fective 2022-Present) Name:Yoko Jerez Relation to Subscriber:Self Name:Solitario Yokojose luis Pineda Payer ID:[id number] Type:Not on file Address: [address] [address] MEDICAID OF [place] Advance Directives For more information, please contact: [phone] * Full Code (Latest Code Status on File) Date Activated Date Inactivated Comments 06/30/2023 12:33 PM 07/06/2023 2:55 PM Care Teams Dye Colorist Formulator Relationship Specialty Start Date End Date Miller Hazel MD [address] [place] [address] [place] [id number] PCP - General Adolescent Medicine 06/30/23
--- OUTSIDE RECORDS SUMMARY | 2025-04-02 10:22 | XMS_ITS | Referral Summary ---
Author Organization [employer] ([place], [place], [place], [place]) Address [address] [place] [address] Care Team Providers Care Registered Nurse Step Down Name Role Phone Miller Hazel MD Primary Care Provider [phone] Allergies Active Allergy Reactions Criticality Noted Date [...] Diagnosed Date Back pain without radiation 06/30/2023 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 Tobacco Use Types Packs/Day Years [...] Date Arnaud rded Speak language other than Vincentian at home Not on file 10/01/2023 Want [...] 06/30/2023 3:38 PM EDT Plan of Treatment Not on file Insurance [facility] MEDICARE PPO MEDICAID OF [place] Advance Directives For more information, please contact: [phone] * Full Code (Latest Code Status on File) Date Activated Date Inactivated Comments 06/30/2023 12:33 PM 07/06/2023 2:55 PM Care Teams Registered Nurse Step Down Relationship Specialty Start Date End Date Miller Hazel MD [address] [place] [address] [place] [address] PCP - General Adolescent Medicine 06/30/23
--- OUTSIDE RECORDS SUMMARY | 2025-04-02 10:22 | XMS_ITS | Continuity of Care Document ---
Author Organization [facility], PAIN MEDICINE [address] [place] [address] Care Team Providers Care Life Care Planner Name Role Phone RADHA MIDDLETON Primary Care Provider ADOLFO HALL Sales Representative Aircraft SUDHIR COTO Silicator Unavailabl e Assessment Encounter Date Assessment Date Assessment LastModified by Organization Details LastModified Time 03/02/2025 03/02/2025 This is a 79-year-old female with chronic low back pain. Today she complains of low back pain left greater than right that is similar to pain we have treated previously. She would like to discuss of repeat CYNDI which has historically provided durable relief she is status post right total knee with Dr. Brewer. PMH: Parkinson's, CAD (Plavix, ASA), gout PSHx: T10-S2 fusion, Left knee TKA m(Brewer, 01/2024), right knee TKA (12/07/2024, coy) 1. X-ray lumbar spine 04/27/2022 demonstrates previous T10-S2 fusion satisfactorily placed. 2. X-ray bilateral knees demonstrate moderate to severe left and moderate right osteoarthritic changes. 3. CT scan thoracic and lumbar spine 06/30/2023 demonstrates mild compression of the upper endplate of T11 which appears chronic. There is retropulsion at this level with resultant severe central canal stenosis. S/p T10-S2 fusion. Wide laminectomy is present throughout the lumbar spine. Degenerative changes in the SI joints bilaterally. Postoperative seroma is present. Right-sided L4-5 foraminal narrowing is present and left L5-S1 foraminal narrowing is present. 4. MRI thoracic and lumbar spine 06/30/2023 demonstrates chronic T9-10 fracture with retropulsion, no signal abnormality within the cord. There is severe central canal narrowing at T9-10 as a result of retropulsion. 5. X-ray performed 08/31/2023 demonstrates Moderate to severe bilateral knee DJD The above image findings were discussed with the patient. Previous injection therapy has included: 09/18/2024 Caudal CYNDI with 70% x 6 months 07/27/2024 Right knee intra-articular injection (triamcinolone) with 85% ongoing 05/16/2024 caudal CYNDI with 80% x 3 months 04/20/2024 Right knee intra-articular injection (triamcinolone) with 80% 01/31/2024 Right knee intra-articular injection (triamcinolone) with 80% x 3 months 01/11/2024 Caudal CYNDI 85% x 3 months 10/21/2023 bilateral IA knee injection with 70% ongoing relief 10/07/2023 caudal CYNDI with greater than 80% ongoing relief 07/12/2023 left L5-S1 TFESI with 80% benefit x 6 weeks Home physical therapy has been ordered. Presentation is consistent with left S1 radiculopathy, bilateral knee pain likely osteoarthritis. I recommend: 1. Repeat caudal CYNDI. Updated cardiac clearance has been requested for patient to hold Plavix 7 days prior to injection, resume 24 hours thereafter 2. Continue PT I had an in-depth discussion with the patient regarding the risks of the procedure including bleeding, infection, damage to surrounding structures, paralysis and even . We discussed the potential adverse effects of corticosteroid injection including flushing of the face, lipodystrophy, skin discoloration, elevated blood glucose, increased blood pressure. Risks of frequent steroid administration include weight gain, hormonal changes, mood changes, osteoporosis. External records were reviewed and discussed as above, including imaging, clinical notes, and relevant labs. [email or web address] Not available 03/12/2025 12:18:35 Plan of Treatment Reminders Order Date Submit Date Provider Last Modified By Organization Details Last Modified Time Details Appointments [facility]- 20 2024 01:20P M JULIANNA REAL MD Not available Not available Not available RECHECK 2024 09:45A M ZEHRA LARIOS PA-C Not available Not available Not available RHEUM RECHECK 2024 10:45A M ADOLFO HALL MD Not available Not available Not available RECHECK 2024 10:30A M [place] [employer] T[employer]ER Not available Not available Not available NEUROLOG Y RECHECK 2025 10:30A M NEENA DEVI DO Not available Not available Not available Lab None recorded . Referral None recorded . Procedures epidural steroid injectio n, caudal (PROC) 2024 025 [email or web address] [facility] Professional Charges, [address], [place], [address], 03/30/2025 10:10:21 Surgeries None recorded . Imaging None recorded . Medication Orders None recorded . Patient TargetsNo targets recorded. Patient Instructions Encounter Date Encounter Id Patient Instructions Last Modified By Organization Details Last Modified Time 03/02/2025 [id number] cardiac clearance* - Requesting cardiac clearance for patient to hold Plavix 7 days prior to caudal epidural steroid injection, resume 24 hours after ccairel Not available 03/27/2025 13:54:16 Reason for Referral None Reported. Problems Name Problem SNOMED Code Status Onset Date Resolution Date Notes Provider Name and Address Organization Details Recorded Time Arthriti s 2852427 Active Jovita (Vani) Rody [facility] 9 12:07:45 Chronic depressi on 155058172 Active Jovita (Vani) Rody [facility] 9 12:07:45 Allergic disposit ion 845634070 Active Jovita (Vani) Rody [facility] 9 12:07:45 Blind left eye 585214228 Active Jovita (Vani) Rody [facility] 9 12:07:45 History of respirat ory disease 517205258 Active Jovita (Vani) Rody [facility] 9 12:07:45 Degenera tive disorder of macula 967523860 Active Jovita (Vani) Rody [facility] 9 12:07:46 Backache 507121034 Active Jovita (Vani) Rody null, [facility] 9 12:07:46 Disorder of thyroid gland 98702076 Active Jovita (Vani) Croley null, [facility] 9 12:07:46 Kidney stone 79998231 Active Jovita (Vani) Croley null, [facility] 9 12:07:46 Bilatera l cataract s 56065658 Active Jovita (Vani) Croley [facility], [facility] 9 12:07:46 Pancreat itis 07300940 [facility] 12:07:46 Chronic diarrhea 986914364 Active Jovita (Vani) Croley [facility] 9 12:07:46 Anemia 721255407 Active Jovita (Vani) Маринаley [facility] 9 12:07:46 Coronary arterios clerosis 92953102 Active Jovita (Vani) Croley [facility] 9 12:07:46 Impairme nt of balance 500821580 Active Jovita (Vani) Croley [facility] 9 12:07:46 Urinary tract infectio us disease 65925750 [facility] 9 12:07:46 Glaucoma 23734507 Active [facility]ani[facility] 9 12:07:46 Rheumato id arthriti s 99861267 Active Jovita (Vani) Croley null, [facility] 9 12:07:46 Acute poliomye litis 143388240 Active 1954 Jovita (Vani) Croley [facility] 9 12:07:46 Neck pain 87746063 [facility] 9 12:07:46 Spinal stenosis 47460426 Active Jovita (Vani) Croley null, [facility] 9 12:07:46 Migraine 95205683 Active Jovita (Vani) Croley null, [facility] 9 12:07:46 Wears glasses 235079498 Active Jovita (Vani) Маринаley null, [facility] 9 12:07:46 Sinusiti s 64077706 Active Jovita (Vani) Croley [facility], [facility] 9 12:07:46 Peripher al nerve disease 951537817 Active Jovita (Vani) Croley [facility], [facility] 9 12:07:46 Gastroes ophageal reflux disease 685653952 Active Jovita (Vani) Croley [facility], [facility] 9 12:07:46 Deep venous thrombos is 901628313 Active Jovita (Vani) Croley [facility] 9 12:07:46 Hyperlip idemia 68667204 Active Jovita (Vani) Croley null, [facility] 9 12:07:46 Chronic headache disorder 701911975 Active 2018 Susan Colon [facility], [facility] 9 12:53:51 Neuropat hy 950941546 Active 2019 Jovita (Vani) Croley [facility] 0 12:46:05 Memory impairme nt 411930195 Active 2019 Jovita (Vani) Croley [facility], [facility] 0 12:46:19 Vertigo 204213382 Active 2020 Jovita (Vani) Croley null, [facility] 1 16:06:43 Parkinso n's disease 80713746 Active 2024 NEENA DEVI, DO [address] [place], [address] , [facility] 5 11:21:53 Abnormal gait due to muscle weakness 039253613 Active 2024 NEENA DEVI, DO [address] [place], [address] , [facility] 5 11:21:53 Idiopath ic peripher al neuropat hy 02222687 Active 2024 NEENA DEVI, DO [address] [place], [address] , [facility] 5 11:02:22 Coronary arterios clerosis in [place] artery 34777863140 07 Active 2014 From Automate d Load;Pro vider: Neil Pittmanil;St atus: Active Jovita (Vani) Rody [facility] 9 12:07:46 Blood in urine 92427966 Active 2014 From Automate d Load;Pro vider: Josh Pittman;St atus: Active Jovita (Vani) Rody [facility] 9 12:07:46 Pain in right knee Active 2014 From Automate d Load;Pro vider: Neil Pittmanil;St atus: Active Jovita (Vani) Rody [facility] 9 12:07:46 Hyperten sive disorder 52127283 Active 2014 From Automate d Load;Pro vider: Josh Pittman;St atus: Active Not Available [facility] 6 23:35:13 Prolapse d lumbar interver tebral disc 999663010 Active 2014 From Automate d Load;Pro vider: Eloy Amezquita; Status: Active [facility] 9 12:07:46 Abdomina l pain 52299217 Active 2014 From Automate d Load;Pro vider: Neil Pittmanil;St atus: Active [facility] 9 12:07:46 Pain 69487714 Active 2014 From Automate d Load;Pro vider: Neil Pittmanil;St atus: Active Jovita (Vani) Croley [facility] 9 12:07:45 Systemic lupus erythema tosus 04282983 Active 1989 Jovita Fine ([place]) [facility] 9 12:07:46 Idiopath ic osteoart hritis 180324659 Active 2014 From Automate d Load;Pro vider: Herminia Orr;Status : Active Jovita Fine ([place]) [facility] 9 12:07:45 Pain in left knee Active 2014 From Automate d Load;Pro vider: Malu Luna;Reji tatus: Active Jovita Fine ([place]) [facility] 9 12:07:46 Migraine without aura, not refracto ry 573405182 Completed 201506/07/2019 From Automate d Load;Pro vider: Geronimo Dahl;St atus: Active Susan Colon [facility] 9 12:53:55 Lumbosac ral radiculo bob 9678137 Active 2015 From Automate d Load;Pro vider: Eloy Amezquita; Status: Active Jovita Fine ([place]) [facility] 9 12:07:46 Low back pain 146097460 Active 2014 Provider : Eloy Amezquita; Status: Active Jovita Fine ([place]) [facility] 9 12:07:46 Spinal stenosis of lumbar region 59511764 Active 2014 From Automate d Load;Pro vider: Eloy Amezquita; Status: Active Jovita Fine ([place]) [facility] 9 12:07:46 Notes:Some problems listed i n Document: #[id number] could not be added to this patient's chart. Please review this document and add these problems to the patient's chart manually as needed. Problem Notes None recorded. Procedures Surgical History Date Name Laterality Status Provider Name and Address Organization Details Recorded Time 11/14/19 25 dental surgical procedure completed [facility] 12/05/2024 11:13:30 09/18/20 24 Caudal CYNDI Addie completed JULIANNA REAL MD [address] [place] [address], [address], [facility] 09/18/2024 14:11:05 07/27/20 24 Joint Injection, Knee - Addie completed JULIANNA REAL MD [address] [place] [address] [place], [address], [facility] 07/27/2024 13:58:38 07/25/20 24 Post Void Residual; Ultrasound completed [place] APRN [address] [place] [address], [address], [facility] 07/25/2024 11:36:57 05/16/20 24 Caudal CYNDI Addie completed JULIANNA REAL MD [address] [place] [address], [address], [facility] 05/16/2024 12:49:14 04/20/20 24 Joint Injection, Knee - Addie completed JULIANNA REAL MD [address] [place] [address], [address], [facility] 04/20/2024 11:47:04 02/08/20 24 total knee replacement completed Shayy Pathak [facility] 05/16/2024 10:52:57 01/31/20 24 Joint Injection, Knee - Addie completed JULIANNA REAL MD [address] [place] [address], [address], [facility] 01/31/2024 15:34:35 01/20/20 24 Post Void Residual; Ultrasound completed RADHA JOHNSTON MD [address] [place] [address] [place], [address], [facility] 01/20/2024 11:50:18 01/11/20 24 Caudal CYNDI Addie completed JULIANNA REAL MD [address] [place] [address] [place], [address], [facility] 01/11/2024 13:44:46 11/23/19 24 Post Void Residual; Ultrasound completed Chaparrita Gómez [facility] 11/23/2023 11:05:50 10/21/19 24 Joint Injection, Knee - Addie completed JULIANNA REAL MD [address] [place], [address], [facility] 10/21/2023 13:59:42 10/07/19 24 Caudal CYNDI Addie completed JULIANNA REAL MD [address] [place], [address], [facility] 10/07/2023 12:03:23 08/31/20 23 Trigger Point Injections - Addie completed ZEHRA LAIROS PA-C [address] [place], [address], [facility] 08/31/2023 15:18:07 07/12/20 23 Lumbar Transforaminal Epidural Injection - [facility] completed JULIANNA REAL MD [address] [place], [address], [facility] 07/12/2023 12:44:44 01/28/20 23 Monovisc Injection completed HEVAEN GRAHAM PA-C [address] [place], [address], [facility] 02/09/2023 13:19:06 08/06/20 20 LIGATION OR BIOPSY, TEMPORAL ARTERY (SURG) completed Iraida Beyer [facility] 08/07/2020 14:34:42 Back Surgery completed Kati Bledsoe [facility] 05/10/2018 14:27:13 Shoulder joint surgery completed Kati Bledsoe [facility] 05/10/2018 14:27:30 Tubal Ligation completed Natalia Miller [facility] 11/17/2023 11:49:05 placement of stent in cardiac conduit completed Natalia Miller [facility] 11/17/2023 11:49:20 Shoulder joint surgery completed Shayy Pathak [facility] 05/16/2024 10:52:23 total knee replacement completed Natalia Shepherd [facility] 03/02/2025 10:48:08 Imaging Results None recorded. Procedure Notes None recorded. Medical Equipment None Reported. Allergies Allergen ID Allergen Name Allergen Category Reaction Reaction Severity Criticality Documentation Date Start Date Code Code System Note Provider Name and Address Organization Details Recorded Time 812711 Compazine medicatio n Not available Not available Not available 08/13/2016201254 6 RxNorm Comme nt: Creat ed By: Deny tamaoy Date: 07/19 10:31 :05 AM; [facility] 3 13:19:43 693368 acetamino phen / oxycodone medicatio n hallucina tions Not available Not available 08/13/2016201218 3 RxNorm Natalia Paul [facility] 3 13:19:26 931687 aspirin medicatio n Not available Not available Not available 08/13/20162015 1191 RxNorm Comme nt: Creat ed By: Owen coffman Date: 2015 2:57: 49 PM; [facility] 3 10:56:39 394466 prochlorp erazine medicatio n seizure Not available Not available 06/07/2019 8704 RxNorm Paddy zine Natalia Paul [facility] 3 13:19:09 464885 aspirin medicatio n Not available Not available Not available 06/07/2019 1191 RxNorm 'Rhina l funct ion tests abnor mal'. Natalia Paul [facility] 3 13:19:59 Medications Name Sig Start [...] 30 days;Ibrahima quency: daily;Me dication Descript ion: potassiu m chloride ; Dosage:2 ; Route:or al; refills: [...] mg tablets in a dose pack TAKE JAD Jacobs TO PACKAGE INSTRUCT IONS --TAKE WITH FOOD-- [...] Available Vitals Date Recorded Body height Body temperature Heart rate Oxygen saturation Oxygen saturation in Arterial blood by Pulse oximetry Systolic And Diastolic Provider Name and Address Organization Details Last Updated DateTime 5 162.56 cm 97.2 [degF] 79 /min 93 % 93 % 102/74 mm[Hg] Natalia Shepherd [facility] 5 10:47:22 Date Recorded Body height Body mass index (BMI) Body weight Respiratory rate Heart rate Oxygen saturation Oxygen saturation in Arterial blood by Pulse oximetry Systolic And Diastolic Provider Name and Address Organization Details Last Updated DateTime 5 162.56 cm 36 kg/m2 90251.4 g 16 /min 75 /min 93 % 93 % 108/50 mm[Hg] Catrina Us [facility] 5 11:09:04 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 Question Answer Notes LastModified by IRIS-RFID Details LastModified Time Tobacco Smoking Status Former Sm[facility] 05/10/2018 14:27:07 How Much Tobacco Do You Chew? None Information not available 06/07/2019 Which Illicit Or Recreational Drugs Have You Used? No [email or web address] Information not available 06/06/2020 Marital Status Junior Informatio n not available 06/07/2019 What Was The Date Of Your Most Recent Tobacco Screening? 03/06/2025 [email or web address] Information not available 03/06/2025 What Is Your Relationship Status? [email or web address] Information not available 08/31/2024 How Much Tobacco Do You Smoke? No [email or web address] Information not available 06/07/2019 Sex: Unknown Functional Status Question Answer Note LastModified by [employer]IS[employer]RF[employer] Details LastModified Time What is your level of alcohol consumption? None [email or web address] Information not available 06/07/2019 Do you or have you ever used smokeless tobacco? Never used smokeless tobacco [email or web address] Information not available 06/07/2019 Are you currently employed? No [email or web address] Information not available 08/31/2024 What is your occupation? retired [email or web address] Information not available 06/07/2019 Do you or have you ever used e-cigarettes or vape? Never used electronic cigarettes [email or web address] Information not available 06/07/2019 Mental Status None recorded. Family History Relationship Description Onset Age of this Age Resolved Age Notes LastModified by Organization Details LastModified Time Unspecified Relation Hypertensive disorder [email or web address] Not available 05/10 14:28:12 Unspecified Relation Myocardial infarction [email or web address] Not available 04/21 14:28:18 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 Condition Response Heart Problems Y Parkinson's Disease Y Blood Transfusion Y Colon/Rectal Disorders N Alzheimer's Y Depression Y COPD Y Glaucoma Y Osteoporosis/Osteopenia Y Stomach trouble Y Heart Attack ([place]) N Diabetes N Anxiety Disorder Y Bleeding Disorder N Arthritis Y Hearing Loss Y Blood Clot Y Cancer N Stroke N Chronic Kidney Disease Y Blood Thinners Y Sleep Apnea Y Sleep Disorder Y Thyroid Disorder Y Neurologic Disorder N Hepatitis Y Liver Disease Y Heart Disease Y Hypertension Y Gynecological HistoryNo gynecological history recorded. Obstetrics History GPAL:G 0 P 0 0 0 0 Immunizations Vaccine Type Date Status Note Provider Nam e and Address Organization Details Recorded Time Influenza, split virus, quadrivalent, preservative 8 completed [facility] 06/07/2019 11:53:21 pneumococcal, unspecified formulation 7 completed Wendie Rozina [facility] 06/07/2019 11:53:21 Influenza, split virus, quadrivalent, preservative 0 completed Jovita (Vani) Rody [facility] 06/06/2020 12:05:59 SARS-COV-2 (COVID-19) vaccine, UNSPECIFIED 1 completed Mare Bledsoe [facility] 03/18/2021 09:39:59 SARS-COV-2 (COVID-19) vaccine, UNSPECIFIED 1 completed Mare Bledsoe [facility] 03/18/2021 09:40:02 Influenza, split virus, quadrivalent, preservative 0 completed Mare Bledsoe [facility] 03/18/2021 09:40:14 Past Encounters Encounter ID Performer Location Encounter Start Date Encounter Closed Date Diagnosis/Indication Diagnosis SNOMED-CT Code Diagnosis ICD10 Code Diagnosis Note [id number] NEENA DEVI DO NEUROLOGY [address] [place] [address] 02/16/2025 10:29:30 02/17/2025 04:44:56 Parkinson's disease 16912940 G20.A1 Chronic condition that is stable. She is on CD/LD and amantadine . She finds these medication s at the current dose are controllin g her tremors quite well. She does not need refills today. Memory impairment 877952 006 R41.3 Hx of MCI/early dementia. She [...] daytime for assistance . Idiopathic peripheral neuropathy 44596054 G60.9 Chronic condition that is secondary to degenerati ve disease in her low back. She is currently prescribed gabapentin and finds this effective for her neuropathi c pain. She has had prior nerve testing. She would like me to request those results to review. [id number] ZEHRA LARIOS PA-C PAIN MEDICINE [address] [place] [address] 03/02/2025 10:26:24 03/02/2025 15:50:22 Lumbar radiculopathy 315495092 M54.16 Displaceme nt of lumbar intervertebral disc 2104947854 M51.26 Degenerati on of lumbar intervertebral disc 35487175 M51.369 Lumbar spondylosis 62460 0009 M47.816 Low back pain 749207787 M54.51 Health Concerns Section Related Observation LastModified by Organization Detai ls LastModified Time None Recorded Concern Status LastModified by Organization Details LastModified Time None Recorded Payers Encounter Date Sequence Insurance Name Policy Number Policy Pearl Covered Member ID Peral Member ID Guarantor Name 03/02/2025 1 [employer] (MEDICARE REPLACEMENT/ ADVANTAGE - PPO) Yoko Jerez [id number] Yoko Jerez 03/02/2025 2 [place] [place]FS/TRADITIO NAL Yoko Jerez [id number] Yoko Jerez Notes Date Note Type Note Provider Name and Address Organization Details Recorded Time 03/02/2025 text/html Hip(s)Reported bypatient.Locatio n:left (hip); buttocks Quality:aching; burning; gnawing; stabbing; throbbing; sharp; dull Severity:severe; pain level 10/10; worst pain 10/10 Duration:2 months Timing:acute Context:cannot identify Alleviating Factors:sitting Aggravating Factors:standing; lying down; walking; changing clothes; getting out of bed; going from sit to stand; morning; daytime; nighttime Associated Symptoms:weakness ;numbness;swellin g;radiation down leg Previous Surgery:none Prior Imaging:none Previous Injections:none Previous PT:PT did not [facility] [facility]. They came home last 08/12 Work Related:no Working:no Yoko Jerez is a 79 yo female here today for FUP Lt hip/buttock pain that started 2 days ago. Left leg is sore . Pt also had Rt TKA 12/12 @ [employer] Per Walt Brewer MD. ZEHRA LARIOS PA-C [address] [place] [address], [address], [facility] 03/12/2025 12:18:38 03/06/2025 text/html Yoko Jerez is a 79-year-old woman with past medical history of mixed connective tissue disease (SLE/RA), pulmonary hypertension, Parkinson's disease, dementia, CKD, gout who presents for follow-up. She got her knee replacement. She is back on her medications.She is not sure her medications are working that well for her. She is also getting injections in her lumbar spine with pain management. Her last one was 09/18/2024. She is taking benlysta 200 mg weekly and prednisone 5 mg daily, colchicine 0.6 mg daily, and allopurinol 100 mg daily. She has been told that if she gets her sleep study and is compliant with treatment of sleep apnea, they feel that that will help her swelling significantly. She is following with Dr. Shaikh in pulmonary and Dr. Underwood in cardiology.She gets injections with Dr. Real in her back. She otherwise denies any chest pain, sob, abd pain, nausea, vomiting, fevers, rashes, oral ulcers, dry eyes, dry mouth, raynaud's, headaches, hematuria, VTE's. ADOLFO HALL MD [address] [place] [address], [address], [facility] 03/09/2025 00:21:14 OBGyn Episode No OBEpisode recorded.
--- OUTSIDE RECORDS SUMMARY | 2025-04-02 10:22 | XMS_ITS | Continuity of Care Document ---
Author Organization [facility], RHEUMATOLOGY SB Address [address] [place] [address] Care Team Providers Care Applications Architect Name Role Phone RADHA MIDDLETON Primary Care Provider [phone] ADOLFO HALL Diesel Technician Mechanic NNAMDI, CORCHIA Formwork Carpenter Unavailabl e Assessment No assessment recorded. Plan of Treatment Reminders Order Date Submit Date Provider Last Modified By Organization Details Last Modified Time Details Appointments ESC-LC 20 2024 01:20P M JULIANNA REAL MD Not available Not available Not available RECHECK 2024 09:45A M ZEHRA LARIOS PAJamesC Not available Not available Not available RHEUM RECHECK 2024 10:45A M ADOLFO HALL MD Not available Not available Not available RECHECK 2024 10:30A M FEDERICO NATION NP Not available Not available Not available NEUROLOG Y RECHECK 2025 10:30A M NEENA DEVI DO Not available Not available Not available Lab CMP, serum or plasma 2024 025 [facility], [address] [place] [address], [phone], 03/20/2025 08:07:21 CBC w/ auto diff [address], [address] [place] [address], [phone], 03/20/2025 08:07:21 urinalys is, complete [address] [facility], [address] [place] [address], [phone], 03/20/2025 08:07:22 ESR (erythro cyte sediment ation rate), blood [address] [facility], [address] [place] [address], [phone], 03/20/2025 08:07:22 C3 (complem ent), serum or plasma [address] [facility], [address] [place] [address], [phone], 03/20/2025 08:07:22 C4 (complem ent), serum or plasma [address] [facility], [address] [place] [address], [phone], 03/20/2025 08:07:22 dsDNA Ab, serum [address] [facility], [address] [place] [address], [phone], 03/20/2025 08:07:22 uric acid, serum or plasma [address] [facility], [address] [place] [address], [phone], 03/20/2025 08:07:22 Referral None recorded . Procedures None recorded . Surgeries None recorded . Imaging None recorded . Medication Orders allopuri nol 100 mg tablet 2024 025 [facility], [address] [place] [address], [id number], 03/12/2025 09:54:51 Mitigare 0.6 mg capsule 2024 025 [facility], [address] [place] [address], [id number], 03/12/2025 09:54:51 Benlysta 200 mg/mL subcutan eous auto-inj audrey 2024 025 [facility], [address] [place] [address], [place], [address], 03/06/2025 11:52:24 predniso ne 5 mg tablet 2024 025 [facility], [address] [place] [address] [place], [place], [phone], 03/12/2025 09:54:50 Patient TargetsNo targets recorded. Patient InstructionsNo instructions recorded. Reason for Referral None Reported. Problems Name Problem SNOMED Code Status Onset Date Resolution Date Notes Provider Name and Address Organization Details Recorded Time Arthriti s 1707405 Active Jovita (Vani) Rody [facility] 12:07:45 Chronic depressi on 683771063 Active Jovita (Vani) Rody [facility] 12:07:45 Allergic disposit ion 068056101 Active Jovita (Vani) Rody [facility] 12:07:45 Blind left eye 635298960 Active Jovita (Vani) Rody [facility] 12:07:45 History of respirat ory disease 150268655 Active Jovita (Vani) Rody [facility] 12:07:45 Degenera tive disorder of macula 510949284 Active Jovita (Vani) Croley [facility] 9 12:07:46 Backache 577011191 Active Jovita (Vani) Rody [facility] 12:07:46 Disorder of thyroid gland 25561371 Active Jovita (Vani) Rody [facility] 9 12:07:46 Kidney stone 97743522 Active Jovita (Vani) Croley null, [facility] 9 12:07:46 Bilatera l cataract s 92212628 Active Jovita (Vani) Croley null, [facility] 9 12:07:46 Pancreat itis 05731654 Active Jovita (Vani) Croley null, [facility] 9 12:07:46 Chronic diarrhea 307112660 Active Jovita (Vani) Croley null, [facility] 9 12:07:46 Anemia 734603935 Active Jovita (Vani) Croley null, [facility] 9 12:07:46 Coronary arterios clerosis 22161403 Active Jovita (Vani) Croley null, [facility] 9 12:07:46 Impairme nt of balance 453342194 Active Jovita (Vani) Croley [facility], [facility] 9 12:07:46 Urinary tract infectio us disease 77645677 Active Jovita (Vani) Croley null, [facility] 9 12:07:46 Glaucoma 49696172 Active Jovita (Vani) Croley null, [facility] 9 12:07:46 Rheumato id arthriti s 43223545 Active Jovita (Vani) Croley null, [facility] 9 12:07:46 Acute poliomye litis 549140833 Active 1954 Jovita (Vani) Croley null, [facility] 9 12:07:46 Neck pain 43845358 Active Jovita (Vani) Croley null, [facility] 9 12:07:46 Spinal stenosis 93460036 Active Jovita (Vani) Croley null, [facility] 9 12:07:46 Migraine 09007906 Active Jovita (Vani) Croley null, [facility] 9 12:07:46 Wears glasses 237619439 Active Jovita (Vani) Croley null, [facility] 9 12:07:46 Sinusiti s 30902021 Active Jovita (Vani) Rody [facility], [facility] 9 12:07:46 Peripher al nerve disease 411113427 Active Jovita (Vain) Rody null, [facility] 9 12:07:46 Gastroes ophageal reflux disease 550333031 Active Jovita (Vani) Rody null, [facility] 9 12:07:46 Deep venous thrombos is 370386573 Active Jovita (Vani) Маринаley [facility] 9 12:07:46 Hyperlip idemia 49547174 Active Jovita (Vani) Маринаley null, [facility] 9 12:07:46 Chronic headache disorder 779578015 Active 2018 Susan Colon [facility] 9 12:53:51 Neuropat hy 395730790 Active 2019 Jovita (Vani) Rody [facility] 0 12:46:05 Memory impairme nt 320210227 Active 2019 Jovita (Vani) Rody [facility] 0 12:46:19 Vertigo 944334661 Active 2020 Jovita (Vani) Rody [facility] 1 16:06:43 Parkinso n's disease 02356485 Active 2024 NEENA DEVI, DO [address] [place], [address] , [facility] 5 11:21:53 Abnormal gait due to muscle weakness 777584702 Active 2024 NEENA DEVI DO [address] [place], [address] , [facility] 5 11:21:53 Idiopath ic peripher al neuropat hy 59207335 Active 2024 NEENA DEVI DO [address] [place], [address] , [facility] 5 11:02:22 Coronary arterios clerosis in [place] artery 67543395695 07 Active 2014 From Automate d Load;Pro vider: Josh Pittman;St atus: Active Jovita Wright) [facility]air [facility] 9 12:07:46 Blood in urine 39274930 Active 2014 From Automate d Load;Pro vider: Josh Pittman;St atus: Active Jovita (Vani) Маринаumair [facility] 9 12:07:46 Pain in right knee Active 2014 From Automate d Load;Pro vider: Josh Pittman;St atus: Active oJvita Wright) Маринаumair [facility] 9 12:07:46 Hyperten sive disorder 57401485 Active 2014 From Automate d Load;Pro vider: Josh Pittman;St atus: Active Not Available [facility] 6 23:35:13 Prolapse d lumbar interver tebral disc 459198142 Active 2014 From Automate d Load;Pro vider: Eloy Amezquita; Status: Active Jovita Wright) [facility]air [facility] 9 12:07:46 Abdomina l pain 26428486 Active 2014 From Automate d Load;Pro vider: Josh Pittman;St atus: Active Jovita (Vani) [facility]air [facility] 9 12:07:46 Pain 03899215 Active 2014 From Automate d Load;Pro vider: Josh Pittman;St atus: Active Jovita Wright) [facility]umair [facility] 9 12:07:45 Systemic lupus erythema tosus 41366546 Active 1989 Jovita Wright) Rody [facility] 9 12:07:46 Idiopath ic osteoart hritis 577128018 Active 2014 From Automate d Load;Pro vider: Herminia Orr;Status : Active Jovita Fine (Camille) [facility] 9 12:07:45 Pain in left knee Active 2014 From Automate d Load;Pro vider: Malu Luna;S tatus: Active Jovita Fine (Camille) [facility] 9 12:07:46 Migraine without aura, not refracto ry 937466332 Completed 201506/07/2019 From Automate d Load;Pro vider: Geronimo Dahl; atus: Active Susan Colon [facility] 9 12:53:55 Lumbosac ral radiculo bob 0145391 Active 2015 From Automate d Load;Pro vider: Eloy Amezquita; Status: Active Jovita Fine (Camille) [facility] 12:07:46 Low back pain 599811794 Active 2014 Provider : Eloy Amezquita; Status: Active Jovita Fine (Camille) [facility] 12:07:46 Spinal stenosis of lumbar region 59238336 Active 2014 From Automate d Load;Pro vider: Eloy Amezqiuta; Status: Active Jovita Fine (Camille) [facility] 12:07:46 Notes:Some problems listed i n Document: #[id number] could not be added to this patient's chart. Please review this document and add these problems to the patient's chart manually as needed. Problem Notes None recorded. Procedures Surgical History Date Name Laterality Status Provider Name and Address Organization Details Recorded Time 11/14/19 25 dental surgical procedure completed [facility] 12/05/2024 11:13:30 09/18/20 24 Caudal CYNDI Addie completed JULIANNA REAL MD [address] [place] [address], [phone], [facility] 09/18/2024 14:11:05 07/27/20 24 Joint Injection, Knee - Addie completed JULIANNA REAL MD [address] [place] [address] [place], [address], [facility] 07/27/2024 13:58:38 07/25/20 24 Post Void Residual; Ultrasound completed FEDERICO NATION APRN [address] [place] [address] [place], [address], [facility] 07/25/2024 11:36:57 05/16/20 24 Caudal CYNDI Addie completed JULIANNA REAL MD [address] [place] [address], [phone], [facility] 05/16/2024 12:49:14 04/20/20 24 Joint Injection, Knee - Addie completed JULIANNA REAL MD [address] [place] [address] [place], [address], [facility] 04/20/2024 11:47:04 02/08/20 24 total knee replacement completed Shayy Pathak [facility] 05/16/2024 10:52:57 01/31/20 24 Joint Injection, Knee - Addie completed JULIANNA REAL MD [address] [place] [address], [phone], [facility] 01/31/2024 15:34:35 01/20/20 24 Post Void Residual; Ultrasound completed RADHA JOHNSTON MD [address] [place] [address] [place], [address], [facility] 01/20/2024 11:50:18 01/11/20 24 Caudal CYNDI Addie completed JULIANNA REAL MD [address] [place] [address] [place], [address], [facility] 01/11/2024 13:44:46 11/23/19 24 Post Void Residual; Ultrasound completed Chaparrita Gómez [facility] 11/23/2023 11:05:50 10/21/19 24 Joint Injection, Knee - Addie completed JULIANNA REAL MD [address] [place] [address], [phone], [facility] 10/21/2023 13:59:42 10/07/19 24 Caudal CYNDI Addie completed JULIANNA REAL MD [address] [place], [address], [facility] 10/07/2023 12:03:23 08/31/20 23 Trigger Point Injections - Addie completed ZEHRA LARIOS PA-C [address] [place], [address], [facility] 08/31/2023 15:18:07 07/12/20 Lumbar Transforaminal Epidural Injection - [facility] completed JULIANNA REAL MD [address] [place], [address], [facility] 07/12/2023 12:44:44 01/28/20 Monovisc Injection completed HEAVEN GRAHAM PA-C [address] [place], [address], [facility] 02/09/2023 13:19:06 08/06/20 20 LIGATION OR BIOPSY, TEMPORAL ARTERY (SURG) completed Iraida Beyer [facility] 08/07/2020 14:34:42 Back Surgery completed Kati Bledsoe [facility] 05/10/2018 14:27:13 Shoulder joint surgery completed Kati Bledsoe [facility] 05/10/2018 14:27:30 Tubal Ligation completed Natalia Miller [facility] 11/17/2023 11:49:05 placement of stent in cardiac conduit completed Natalia Miller [facility] 11/17/2023 11:49:20 Shoulder joint surgery completed Shayy Pathak [facility] 05/16/2024 10:52:23 total knee replacement completed Natalia Shepherd [facility] 03/02/2025 10:48:08 Imaging Results None recorded. Procedure Notes None recorded. Medical Equipment None Reported. Allergies Allergen ID Allergen Name Allergen Category Reaction Reaction Severity Criticality Documentation Date Start Date Code Code System Note Provider Name and Address Organization Details Recorded Time 245049 Compazine medicatio n Not available Not available Not available 08/13/20162012 6 RxNorm Comme nt: Creat ed By: Deny Estrada roni Date: 07/19 10:31 :05 AM; [facility] 3 13:19:43 899761 acetamino phen / oxycodone medicatio n hallucina tions Not available Not available 08/13/20162012 84276 3 RxNorm [facility] 13:19:26 635584 aspirin medicatio n Not available Not available Not available 08/13/20162015 1191 RxNorm Comme nt: Creat ed By: Owen coffman Date: 2015 2:57: 49 PM; [facility] 3 10:56:39 033516 prochlorp erazine medicatio n seizure Not available Not available 06/07/2019 8704 RxNorm Paddy zine [facility] 3 13:19:09 328919 aspirin medicatio n Not available Not available Not available 06/07/2019 1191 RxNorm 'Rhina l funct ion tests abnor mal'. Natalia Paul [facility] 3 13:19:59 Medications Name Sig Start Date [...] Updated DateTime 5 162.56 cm 36 kg/m2 48001.4 g 16 /min 75 /min 93 % 93 % 108/50 mm[Hg] [facility] 5 11:09:04 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 Question Answer Notes LastModified by Organizat ion Details LastModified Time Tobacco Smoking Status Former Smoker Kati Bledsoe [facility] 05/10/2018 14:27:07 How Much Tobacco Do You Chew? None Information not available 06/07/2019 Which Illicit Or Recreational Drugs Have You Used? No [email or web address] Information not available 06/06/2020 Marital Status Junior Informatio n not available 06/07/2019 What Was The Date Of Your Most Recent Tobacco Screening? 03/06/2025 [email or web address] Information not available 03/06/2025 What Is Your Relationship Status? [email or web address] Information not available 08/31/2024 How Much Tobacco Do You Smoke? No [email or web address] Information not available 06/07/2019 Sex: Unknown Functional Status Question Answer Note LastModified by Organizat ion Details LastModified Time What is your level of alcohol consumption? None [email or web address] Information not available 06/07/2019 Do you or have you ever used smokeless tobacco? Never used smokeless tobacco [email or web address] Information not available 06/07/2019 Are you currently employed? No [email or web address] Information not available 08/31/2024 What is your occupation? retired [email or web address] Information not available 06/07/2019 Do you or have you ever used e-cigarettes or vape? Never used electronic cigarettes [email or web address] Information not available 06/07/2019 Mental Status None recorded. Family History Relationship Description Onset Age of this Age Resolved Age Notes LastModified by Organization Details LastModified Time Unspecified Relation Hypertensive disorder [email or web address] Not available 05/10 14:28:12 Unspecified Relation Myocardial infarction [email or web address] Not available 04/21 14:28:18 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 Condition Response Blood Transfusion Y Colon/Rectal Disorders N Glaucoma Y Depression Y COPD Y Anxiety Disorder Y Arthritis Y Hearing Loss Y Blood Clot Y Cancer N Stroke N Chronic Kidney Disease Y Blood Thinners Y Neurologic Disorder N Liver Disease Y Heart Problems Y Parkinson's Disease Y Alzheimer's Y Osteoporosis/Osteopenia Y Stomach trouble Y Heart Attack (PR) N Diabetes N Bleeding Disorder N Sleep Apnea Y Thyroid Disorder Y Sleep Disorder Y Hepatitis Y Heart Disease Y Hypertension Y Gynecological HistoryNo gynecological history recorded. Obstetrics History GPAL:G 0 P 0 0 0 0 Immunizations Vaccine Type Date Status Note Provider Nam e and Address Organization Details Recorded Time Influenza, split virus, quadrivalent, preservative 8 completed Wendie Rozina [facility] 06/07/2019 11:53:21 pneumococcal, unspecified formulation 7 completed Wendie Handy [facility] 06/07/2019 11:53:21 Influenza, split virus, quadrivalent, preservative 0 completed Jovita (Vani) Rody [facility], [facility] 06/06/2020 12:05:59 SARS-COV-2 (COVID-19) vaccine, UNSPECIFIED 1 completed Marecalixto Bledsoe [facility] 03/18/2021 09:39:59 SARS-COV-2 (COVID-19) vaccine, UNSPECIFIED 1 completed Marebernardo Bledsoe [facility] 03/18/2021 09:40:02 Influenza, split virus, quadrivalent, preservative 0 completed Marebernardo Bledsoe [facility] 03/18/2021 09:40:14 Past Encounters Encounter ID Performer Location Encounter Start Date Encounter Closed Date Diagnosis/Indication Diagnosis SNOMED-CT Code Diagnosis ICD10 Code Diagnosis Note [id number] NEENA DEVI, NEUROLOGY [address] [place] [address] 02/16/2025 10:29:30 02/17/2025 04:44:56 Parkinson's disease 94552959 G20.A1 Chronic condition that is stable. She is on CD/LD and amantadine . She finds these medication s at the current dose are controllin g her tremors quite well. She does not need refills today. Memory impairment 573377 006 R41.3 Hx of MCI/early dementia. She [...] daytime for assistance . Idiopathic peripheral neuropathy 84134916 G60.9 Chronic condition that is secondary to degenerati ve disease in her low back. She is currently prescribed gabapentin and finds this effective for her neuropathi c pain. She has had prior nerve testing. She would like me to request those results to review. 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 Concentric left ventricula r hypertroph y. Normal EF 55%. Grade 1 diastolic dysfunctio n. Mildly enlarged right ventricle with normal contractil ity. No pericardia l effusion.L ast chest CT 08/27/2022: Multiple nodules scattered throughout both lungs measuring up to 5 mm. No significan t enlargemen t of the pulmonary arteries to suggest pulmonary arterial hypertensi on. No bronchiect asis. No significan t interstiti al lung disease. Continue Benlysta 200 mg subcutaneo us every week (10/21/2023) Continue prednisone 5 mg daily Systemic l upus erythematosus 33592147 M32.9 Long-term drug therapy 974403565 Z79.899 Retinal toxicity to Plaquenil CBC, CMP, ESR, CRP, complement s, double-str anded DNA, UA, every 6 months on current medication s- uric acid every 6 months- continue regular eye exams - I addressed the risks of using Benlysta infusions including but not limited to increased risk of infection, worsening chest pain and shortness of breath, worsening or new onset depression , increases of malignancy , and infusion reactions. Gout 81191923 M10.9 There is concern for overlappin g gout - encouraged continuing mitigare 0.6 mg daily- continue allopurino l 100 mg daily Bilateral osteoarthritis of knees 1537784646 93294 M17.0 She got her left knee replaced 02/17/[address] Brweer at [facility]- she will be getting her right knee replaced Osteoporosis 68919386 M8 1.0 DEXA 05/07/2022 left femoral neck -0.3, right forearm -0.6, FRAX 9.4% / 0.7% Repeat DEXA every 2 years; due ; overdue for this Continue weightbear ing exercise Recommend discussed calcium and vitamin D supplement ation with nephrology . Pulmonary hypertension 14048557 I27.20 Last echo 09/08/2022 : Estimated RVSP 41.1. Concentric left ventricula r hypertroph y. Normal EF 55%. Grade 1 diastolic dysfunctio n. Mildly enlarged right ventricle with normal contractil ity. No pericardia l effusion.- Continue follow-up with Dr. Underwood Spinal ho nosis of lumbar region 18985268 M48.061 2004 lumbar fusion L2-5 06/2018 lumbar fusion L1-S1 MRI/CT 06/2023 with severe degenerati ve changes Now imaging is suggesting that one of her screws is loose and she has a worsening bulging disc Continue follow-up with pain management Dr. Real injections are helping Her last surgery on the lumbar spine was 12/24/2020 - Getting gabapentin from other providers Health Concerns Section Related Observation LastModified by Organization Detai ls LastModified Time None Recorded Concern Status LastModified by Organization Details LastModified Time None Recorded Payers Encounter Date Sequence Insurance Name Policy Number Policy Pearl Covered Member ID Pearl Member ID Guarantor Name 03/06/2025 1 [employer] (MEDICARE REPLACEMENT/ ADVANTAGE - PPO) Yoko Jerez [id number] Yoko Jerez 03/06/2025 2 MEDICAID-[facility] - FFS/TRADITIO NAL Yoko Jerez [id number] Yoko Jerez Notes Date Note Type Note Provider Name and Address Organization Details Recorded Time 03/06/2025 text/html Yoko Jerez is a 79-year-old [...] raynaud's, headaches, hematuria, VTE's. ADOLFO HALL MD [address] [place] [address], [address], [facility] 03/09/2025 00:21:14 OBGyn Episode No OBEpisode recorded.
--- OUTSIDE RECORDS SUMMARY | 2025-04-02 10:22 | XMS_ITS | Encounter Summary ---
Author Organization [facility] Address [address] [place] [address] Care Team Providers Care Metal Expediter Name Role Phone Miller Hazel MD Primary Care Provider [phone] Reason for Visit * Reason Onset Date Comments Med Refill 03/12/2025 Encounter Details Date Type Department Care Team (Late Contact Info) Description 03/12/2025 Refill [facility] [address] [place] [address] Annika Sheridan MD [address] [address] 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 Tobacco Use Types [...] Description 05/08/2025 10:45 AM EDT Office Visit [facility] [address] [place] [address] Annika Sheridan MD [address] [address] documented as of this encounter Visit Diagnoses Not on filedocumented in this encounter Additional Health Concerns Assessment Noted Time A fall risk assessment has been complete d for the patient 11/07/2024 11:20 AM EST A Body Mass Index follow-up plan has been documented for the patient 11/07/2024 12:26 PM EST documented as of this encounter Care Teams Metal Expediter Relationship Specialty Start Date End Date Miller Hazel MD [address] [place] [id number] PCP - General 08/04/21 documented as of this encounter
== END 2025-04-02 23:59 | disposition home or self-care (01) ==
LOC: RAD 10:17
PROVIDERS: PCP Physician Assistant; Visit Provider Physician Assistant
DX: E01.0 Iodine-deficiency related diffuse (endemic) goiter (principal)
CPT/HCPCS: 76536

== ENCOUNTER 2025-04-17 13:00 | Outpatient (RCR) | payer MEDICARE, MEDICAID, SELFPAY | END 2025-04-17 23:59 | disposition home or self-care (01) | LOC: PT 13:00 | PROVIDERS: PCP Internal Medicine Adolescent Medicine; Visit Provider Physician Assistant | DX: Z47.1 Aftercare following joint replacement surgery (principal); I27.20 Pulmonary hypertension, unspecified; I73.00 Raynaud's syndrome without gangrene; M32.9 Systemic lupus erythematosus, unspecified; M48.00 Spinal stenosis, site unspecified; M70.61 Trochanteric bursitis, right hip; R53.83 Other fatigue; M54.2 Cervicalgia; M25.551 Pain in right hip; M25.561 Pain in right knee; M31.6 Other giant cell arteritis; M19.90 Unspecified osteoarthritis, unspecified site; D64.9 Anemia, unspecified; Z96.651 Presence of right artificial knee joint; Z91.89 Other specified personal risk factors, not elsewhere classified; Z79.899 Other long term (current) drug therapy | CPT/HCPCS: 97110; 97112; 97140; 97530 ==

== ENCOUNTER → 2025-04-20 13:11 | Outpatient (RCR) | payer MEDICARE, MEDICAID, SELFPAY | LOC: PT 13:11 | PROVIDERS: PCP Internal Medicine Adolescent Medicine; Visit Provider Physician Assistant | DX: Z47.1 Aftercare following joint replacement surgery (principal); Z96.651 Presence of right artificial knee joint | CPT/HCPCS: 97140; 97530 ==

== ENCOUNTER 2025-05-02 12:44 | Emergency (ER) | payer MEDICARE, MEDICAID, SELFPAY ==
--- OUTSIDE RECORDS SUMMARY | 2019-04-21 10:36 | XMS_ITS | Encounter Summary ---
Author Organization [facility] ystem Address [address] [place] [id number] Care Team Providers Care Lever Tender Name Role Phone Adrián Frost MD Primary Care Provider [phone] Encounter Details Date Type Department Care Team (Late st Contact Info) Description 04/21/2019 10:36 AM EDT Hospital Encounter [facility] PULMONARY & CRITICAL CARE MEDICINE [address] [place] [address] 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 Tobacco Use Types [...] or training? Not on file Preferred Language Palestinian 12/08/2024 Comments No Sex and Gender Information [...] 12:49 PM EDT Zohra Heard RN * [place] Suicide Severity Rating Scale (Screener/Recent Self-Report) Question Answer Date of Assessment Author 6. Suicidal Behavior (Lifetime) No 12:49 PM EDT Zohra Arzola RN documented as of this encounter Plan of Treatment Upcoming Encounters Date Type Department Care Team (Late st Contact Info) Description 07/10/2025 10:30 AM EDT Office Visit [facility] PULMONARY & CRITICAL CARE MEDICINE [address] [facility] [address] [place] [address] Winnie Laura APRN [address] [place] [address] 03/04/2026 10:45 AM EDT Office Visit [facility] CARDIOLOGY [address] [place] [address] Jerson Underwood MD [address] [facility] [address] [place] [address] 05/01/2026 11:00 AM EDT Office Visit [facility] CARDIOTHORACIC SURGERY [address] [place] [phone] Radha Lowry, [employer] SOFTWARE DEVELOPER [address] [place] [address] documented as of this encounter Procedures Procedure [...] documented as of this encounter Care Teams Lever Tender Relationship Specialty Start Date End Date Adrián Frost MD [address] [place] [address] PCP - General Family Medicine 04/12/19 10/29/19 documented as of this encounter
--- OUTSIDE RECORDS SUMMARY | 2023-05-19 09:46 | XMS_ITS | Encounter Summary ---
Author Organization [facility] ystem Address [address] [place] [address] Care Team Providers Care Green Jobs Trainer Name Role Phone Miller Hazel MD Primary Care Provider [phone] Encounter Details Date Type Department Care Team (Late st Contact Info) Description 05/19/2023 9:46 AM EDT Hospital Encounter [facility] PULMONARY & CRITICAL CARE MEDICINE [address] [place] [address] 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 Tobacco Use Types [...] or training? Not on file Preferred Language Danish 12/08/2024 Comments No Sex and Gender Information [...] 12:49 PM EDT Zohra Heard RN * [place] Suicide Severity Rating Scale (Screener/Recent Self-Report) Question Answer Date of Assessment Author 6. Suicidal Behavior (Lifetime) No 12:49 PM EDT Zohra Arzola RN documented as of this encounter Plan of Treatment Upcoming Encounters Date Type Department Care Team (Late st Contact Info) Description 07/10/2025 10:30 AM EDT Office Visit [facility] PULMONARY & CRITICAL CARE MEDICINE [address] [facility] [address] [place] [phone] Winnie Laura APRN [address] [place] [address] 03/04/2026 10:45 AM EDT Office Visit [facility] CARDIOLOGY [address] [place] [address] Jerson Underwood MD [address] [facility] [address] [place] [address] 05/01/2026 11:00 AM EDT Office Visit [facility] CARDIOTHORACIC SURGERY [address] [facility] [address] [place] [phone] Radha Lowry, SPEARER [address] [facility] [address] [place] [address] documented as of this encounter Procedures Procedure [...] MD 05/19/2023 3:21 PM EDT Workstation ID: [id number] Narrative 05/19/2023 3:21 PM EDT XR CHEST [...] MD 05/19/2023 3:21 PM EDT Workstation ID: [id number] Winnie Laura APRN IMG DIAGNOSTIC IMAGING ORD ERABLES Final Result documented in this encounter Visit Diagnoses Not on filedocumented in this encounter Care Teams Green Jobs Trainer Relationship Specialty Start Date End Date Miller Hazel MD [facility] [place] [facility] [address] [place] [address] PCP - General Adolescent Medicine 10/30/19 documented as of this encounter
--- OUTSIDE RECORDS SUMMARY | 2025-05-01 11:00 | XMS_ITS | Encounter Summary ---
Author Organization [facility] ystem Address [address] [place] [address] Care Team Providers Care Optical Goods Worker Name Role Phone Miller Hazel MD Primary Care Provider [phone] Reason for Visit * Reason Comments Carotid Artery Disease 1 year follow up with carotid duplex Encounter Details Date Type Department Care Team (Late st Contact Info) Description 05/01/2025 11:00 AM EDT Office Visit [facility] CARDIOTH[facility]ACIC SURGERY [address] [address] Radha Lowry, DEMAND EQUIPMENT REPAIRER [address] [place] [address] Stenosis of left carotid artery (Primary Dx) [...] or training? Not on file Preferred Language Micronesian 12/08/2024 Comments No Sex and Gender Information [...] from the original note were not included. [facility] Cardiothoracic Surgery Office Follow Up Note [...] therapy. She continues to be followed by certified forklift operator Dr Underwood. Review of Systems: Review of [...] tablet, Take 2 tablets by mouth Daily. shelter, Disp: , Rfl: primidone (MYSOLINE) 250 MG [...] Jaskaran Simpson Jr., MD; Location: [facility]; Service: Orthopedics; Laterality: Right; TUBAL ABDOMINAL LIGATION [...] the nearest emergency department. Radha Lowry APRN [facility] Cardiothoracic Surgery Time Spent: I spent 29 minutes caring for Yoko on this date of service. This time includes timespent by me in the following activities: preparing for the visit, reviewing tests, obtaining and/orreviewing a separately obtained history, performing a medically appropriate examination and/or evaluation, counseling and educating the patient/family/caregiver, ordering medications, tests, or proced ures, referring and communicating with other health rn patient care, documenting information in the medical record, independently interpreting results and communicating that information with the patient/family/caregiver, and care coordination. documented in this encounter Plan of Treatment Upcoming Encounters Date Type Department Care Team (Late st Contact Info) Description 07/10/2025 10:30 AM EDT Office Visit [facility] PULMON[facility] & CRITICAL CARE MEDICINE [address] [facility] [address] [place] [address] Winnie Laura APRN [address] [place] [address] 03/04/2026 10:45 AM EDT Office Visit [facility] CARDIOLOG[facility] [address] [facility] [address] [place] [address] Jerson Underwood MD [address] [facility] [address] [place] [address] 05/01/2026 11:00 AM EDT Office Visit [facility] CARDI[facility] SURGERY [address] [facility] [address] [place] [id number] Radha Lowry APRN [address] [facility] [address] [place] [address] documented as of this encounter Goals Goal [...] documented as of this encounter Care Teams Optical Goods Worker Relationship Specialty Start Date End Date Miller Hazel MD [address] [place] [facility] [address] [facility] [place] [address] PCP - General Adolescent Medicine 10/30/19 documented as of this encounter
--- OUTSIDE RECORDS SUMMARY | 2025-05-02 12:49 | XMS_ITS | Patient Health Record ---
Author Organization [facility] MD Address [address] [facility] [address] [place] [address] Care Team Providers Care Wall Covering Contractor Name Role Phone Clayton Harris Primary Care Provider Reason For Referral No Information Medications Medication SIG (Take, Route, Frequency, Duration) Notes Start Date End Date Status Ativan 1 MG 1 tablet Orally Once a day 02/02/2013 Active Problems Problem Type SNOMED Code ICD Code Onset Dates Problem Status W/U Status Risk Notes Problem Macroglossia (86730280) Macroglossia (750.15) Active confirmed Problem Hypertension (01373176) HTN (hypertension) (401.9) Active confirmed Problem Coronary artery disease (43419623) CAD (coronary artery disease) (414.00) Active confirmed Problem Hypersomnia with sleep apnea (61636895) Sleep apnea with hypersomnolence (780.53) Active confirmed Plan Of Treatment No Information Insurance Providers Payer Name Payer Address Payer Phone Subscriber Number Group Number Insured Name Patient Relationship to Insured Coverage Start Date Coverage End Date MEDICARE [place] [address] [place] [address] [id number] Yoko Jerez Self - patient is the insured 3 [employer] [address] [place] [address] [id number] Yoko Jerez Self - patient is the insured Medical (General) History Surgical History Surgery Date(Month/Year) Joint/Bone PECAN HULLER
--- OUTSIDE RECORDS SUMMARY | 2025-05-02 12:49 | XMS_ITS | Clinical Summary ---
Author Organization [facility] ([place], [place], [place], [place]) Address [address] [place] [address] Care Team Providers Care Substation Supervisor Name Role Phone Miller Hazel MD Primary Care Provider [phone] Allergies Active Allergy Reactions Criticality Noted Date [...] Date Arnaud rded Speak language other than Filipino at home Not on file 10/01/2023 Want [...] Completed 05/09/2020, 05/2019 Insurance [employer] MEDICARE PPO MEDICAID OF [place] Advance Directives For more information, please contact: [phone] * Full Code (Latest Code Status on File) Date Activated Date Inactivated Comments 06/30/2023 12:33 PM 07/06/2023 2:55 PM Care Teams Substation Supervisor Relationship Specialty Start Date End Date Miller Hazel MD [address] [place] [address] PCP - General Adolescent Medicine 06/30/23
--- OUTSIDE RECORDS SUMMARY | 2025-05-02 12:49 | XMS_ITS | Clinical Summary ---
Author Organization [facility] Address [address] [place] [address] Care Team Providers Care Psychologist Experimental Name Role Phone Miller Hazel MD Primary Care Provider [phone] Allergies Active Allergy Reactions Criticality Noted Date [...] 2 (two) times a day. 2 Active carbidopa-levod opa (Sinemet) 25-100 MG tablet TAKE 1/2 TABLET BY MOUTH THREE TIMES DAILY FOR 1 WEEK, THEN TAKE ONE TABLET THREE TIMES DAILY THEREAFTER MAY take with OR without food 2 Active Cyanocobalamin ER 1000 MCG tablet controlled-rele ase Active gabapentin (Neurontin) 300 MG capsule 5 [...] 1 (one) time each day. 2 Active cholecalciferol (Vitamin D3) 25 MCG (1000 UT) tablet [...] LEAVE OFF FOR 12 HOURS 4 Active HYDROcodone-ann taminophen (Willis) 7.5-325 MG tablet TAKE ONE TABLET BY [...] (Symmetrel) 100 MG tablet Active nystatin (Mycostatin) 403374 UNIT/ML suspension Take 4 mL (400,000 Units) by mouth 2 (two) times a day. 4 Active oxybutynin XL (Ditropan-XL) 10 MG 24 hr tablet Take 1 tablet (10 mg) by mouth 1 (one) time each day. 4 Active dorzolamide-willa olol (Cosopt) 2-0.5 % ophthalmic solution Administer 1 drop into both eyes 2 times a day. 20 mL 3 5 Active Active Problems Problem Noted Date Diagnosed [...] Type Department Care Team Description 03/15/2025 Refill [facility] [address] [place] [address] Annika Sheridan MD 03/12/2025 Refill [facility] [address] [place] [address] Annika Sheridan MD from Last 3 Months [...] Care Team (Late st Contact Info) Description 11/13/2025 10:30 AM EST Office Visit [facility] [address] [place] [address] Annika Sheridan MD [address] [place] [address] Health Maintenance Due Date Last Done Comments [facility]-Bone Density Scan 1947 [facility]-Depression Screening 1947 [facility]-Hepatitis C Screening 1945 [facility]-Medicare Annual Wellness (AWV) 1945 [facility]-Infant/Child/Adol SDOH Screenings 1947 [facility]- SDOH Screenings 1965 [facility]-Adult SDOH Screenings 1965 [facility]-RSV Vaccine: 60+ Years or (1 - 1-dose 75+ series) 2022 AZE-GHFIH-25 Vaccine (11 - Moderna risk 2023- season) [...] this topic Medical Devices Implanted Type Area Bonding Molder Device Identifier Shelf Expiration Date Model / Serial / Lot Lens [id number] 22 - [id number] Implanted:Qty: 1 on 06/29/2022 by Annika Sheridan MD at [facility] Right: Eye [id number] 01/06/2027 [id number] / [id number] / [id number] Insurance MEDICAID-[place] HUMANA MEDICARE Care Teams Psychologist Experimental Relationship Specialty Start Date End Date Miller Hazel MD [address] [facility] [address] [place] [address] [facility] - General 08/04/21
--- OUTSIDE RECORDS SUMMARY | 2025-05-02 12:49 | XMS_ITS | Clinical Summary ---
Author Organization [facility] Address [address] [place] [address] Phone Care Team Providers Care Carport Erector Name Role Phone Jerry MEJIAS, Marilou Unavailable Unavailable Conditions or Problems Problem Name Problem Code Onset Date Status Entry Date Provider Comment Standard Description Annotate Kidney disease, chronic, stage II 723306464 (SNOMED CT) 03/06 Active 03/06 Bobo Vizcarra MD Chronic kidney disease stage 2 UTI, recurrent 909123524 (SNOMED CT) 03/06 Active 03/06 Bobo Vizcarra MD Recurrent urinary tract infection DIARRHEA, CHRONIC 526697174 (SNOMED CT) 06/17 Active 06/17 Bobo Vizcarra MD Chronic diarrhea SYSTEMIC LUPUS ERYTHEMATOSU S 88943601 (SNOMED CT) 06/17 Active 06/17 Bobo Vizcarra MD Systemic lupus erythematosus IMMUNOCOMPRO MISED 606423824 (SNOMED CT) 06/17 Active 06/17 Bobo Vizcarra MD Immunodeficienc y disorder RHEUMATOID ARTHRITIS 15449051 (SNOMED CT) 06/17 Active 06/17 Bobo Vizcarra MD Rheumatoid arthritis C. Difficile colitis, recurrent 67333541 (SNOMED CT) 03/05 Active 03/05 Martine Damir Enterocolitis DIARRHEA, CHRONIC 629067474 (SNOMED CT) 06/17 Resolved 06/17 Martine Damir Chronic diarrhea LEUKOPENIA 40987227 (SNOMED CT) 06/17 Resolved 06/17 Martine Damir Leukopenia RHEUMATOID ARTHRITIS 73631028 (SNOMED CT) 06/17 Resolved 06/17 Martine Damir Rheumatoid arthritis THROMBOCYTOP ENIA 292210906 (SNOMED CT) 06/17 Resolved 06/17 Martine Reich Thrombocytopeni c disorder SYSTEMIC LUPUS ERYTHEMATOSU S 74549100 (SNOMED CT) 06/17 Resolved 06/17 Martine Reich Systemic lupus erythematosus HEPATITIS 040046086 (SNOMED CT) 06/17 Resolved 06/17 Martine Reich Inflammatory disease of liver ANEMIA 179083513 (SNOMED CT) 06/17 Resolved 06/17 Martine Reich Anemia IMMUNOCOMPRO MISED 240751990 (SNOMED CT) 06/17 Resolved 06/17 Martine Reich Immunodeficienc y disorder SEPSIS SYNDROME A41.9 (ICD-10-CM ) 06/17 Resolved 06/17 Martine Reich Sepsis, unspecified organism THRUSH 19887922 (SNOMED CT) Resolved Martine Reich Candidiasis THRUSH 57429273 (SNOMED CT) Removed Jaskaran Estrada MD Candidiasis RHEUMATOID ARTHRITIS 29278634 (SNOMED CT) 06/17 Removed 06/17 Marilou Edwards RN Rheumatoid arthritis ANEMIA 962557598 (SNOMED CT) 06/17 Removed 06/17 Marilou Edwards RN Anemia THROMBOCYTOP ENIA 602016754 (SNOMED CT) 06/17 Removed 06/17 Marilou Edwards RN Thrombocytopeni c disorder LEUKOPENIA 91086833 (SNOMED CT) 06/17 Removed 06/17 Marilou Edwrads RN Leukopenia SYSTEMIC LUPUS ERYTHEMATOSU S 89109398 (SNOMED CT) 06/17 Removed 06/17 Marilou Edwards RN Systemic lupus erythematosus DIARRHEA, CHRONIC 368837419 (SNOMED CT) 06/17 Removed 06/17 Marilou Edwards satellite tv installer diarrhea IMMUNOCOMPRO MISED 080850769 (SNOMED CT) 06/17 Removed 06/17 Marilou Edwards RN Immunodeficienc y disorder HEPATITIS 874530150 (SNOMED CT) 06/17 Removed 06/17 Marilou Edwards RN Inflammatory disease of liver SEPSIS SYNDROME A41.9 (ICD-10-CM ) 06/17 Removed 06/17 Marilou Edwards RN Sepsis, unspecified organism Medications Medication Instructions Start Date Stop Date Generic Name NDC Provider PREDNISONE 20 MG TABS twice a day prednisone 81453004893 Yasmine Levine LEFLUNOMIDE 20 MG TABS leflunomide 13312395337 [facility] [place] KLOR-CON 20 MEQ PACK potassium chloride 94833360382 [facility] [place] ZOLPIDEM TARTRATE 10 MG TABS zolpidem 81495493912 [facility] [place] DORZOLAMIDE HCL-TIMOLOL MAL 2-0.5 % SOLN dorzolamide-timol ol 05535576446 [facility] [place] LISINOPRIL-HYDROC HLOROTHIAZIDE 10-12.5 MG TABS lisinopril-hydroc hlorothiazide 67788677065 [facility] [place] IMODIUM A-D TABLET IMODIUM A-D TABLET [facility] [place] DIGOXIN 125 MCG TABS digoxin 37664454147 [facility] [place] BUPROPION HCL 75 MG TABS bupropion hcl 93741241143 [facility] [place] OMEPRAZOLE 20 MG TBEC omeprazole 44513707201 [facility] [place] DIAZEPAM 5 MG TABS diazepam 61488572814 [facility] [place] SIMVASTATIN 20 MG TABS simvastatin 36504729122 [facility] [place] MECLIZINE HCL 25 MG TABS meclizine 37696672167 [facility] [place] IMURAN 50 MG TABS azathioprine 18427834686 [facility] [place] LATANOPROST 0.005 % SOLN latanoprost 87682817822 [facility] [place] DEPAKOTE 500 MG TBEC divalproex 17262315071 [facility] [place] PRIMIDONE 250 MG TABS primidone 16869720925 [facility] [place] TRAMADOL HCL 50 MG TABS tramadol 17331084156 [facility] [place] CYCLOBENZAPRINE HCL 5 MG TABS cyclobenzaprine 50555313711 [facility] [place] MITIGARE 0.6 MG CAPS colchicine 10635218934 Emil Elena METOCLOPRAMIDE HCL 10 MG TABS metoclopramide hcl 70282653853 Emil Elena CARBIDOPA-LEVODOP A 25-100 MG TABS carbidopa-levod op a 02464572591 Emil Allison BUMETANIDE 1 MG TABS bumetanide 02480048092 Emil Allison METHIMAZOLE 5 MG TABS methimazole 55341175477 Emil Allison BUPROPION HCL 100 MG TABS bupropion hcl 55981144395 Emil Allison CHLORTHALIDONE 25 MG TABS chlorthalidone 16895273901 Emil Allison PREDNISONE 5 MG TABS 03/19 prednisone 72961669893 Emil Allison DONEPEZIL HCL 10 MG TABS donepezil 18216601083 Emil Elena CITALOPRAM HYDROBROMIDE 10 MG TABS citalopram 54894029042 Emil Allison AZELASTINE HCL 0.1 % SOLN azelastine 87108984724 Emil Allison MONTELUKAST SODIUM 10 MG TABS montelukast 42530000961 Travi s Elena GABAPENTIN 300 MG CAPS gabapentin 61540131478 Emil Elena POTASSIUM CHLORIDE OJNATHAN ER 20 MEQ CR-TABS potassium chloride 11549994227 Emil Elena TRAVOPROST (VALENTIN FREE) 0.004 % SOLN travoprost 49438403306 Emil Allison CARVEDILOL 12.5 MG TABS carvedilol 11781988253 Emil Elena IMODIUM A-D TABS 03/06 LOPERAMIDE HCL TABS 23762043872 Jaskaran Estrada MD COLESTID 1 GM TABS COLESTIPOL HCL 37077354975 Jaskaran Estrada MD DOXYCYCLINE HYCLATE 100 MG CAPS DOXYCYCLINE HYCLATE 71172857625 Jaskaran Estrada MD FLAGYL 500 MG ORAL TABLET METRONIDAZOLE 99345871652 Jaskaran Estrada MD LEVAQUIN 500 MG ORAL TABLET Take 1 tablet by mouth daily LEVOFLOXACIN 90717165261 Jaskaran Estrada MD FLAGYL 500 MG ORAL TABLET Take one (1) tablet by mouth three times a day METRONIDAZOLE 62632837548 Jaskaran Estrada MD DOXYCYCLINE HYCLATE 100 MG CAPS Take one (1) tablet by mouth twice a day DOXYCYCLINE HYCLATE 65188711764 Jaskaran Estrada MD DEPAKOTE 500 MG TBEC 12/27 DIVALPROEX SODIUM 32387111914 Rachna Myers RN OMEPRAZOLE 20 MG TBEC 03/06 OMEPRAZOLE 19893969223 Rachna Myers RN CYCLOBENZAPRINE HCL 5 MG TABS 0 03/20 CYCLOBENZAPRINE HCL 53255312492 Rachna Myers RN DIAZEPAM 5 MG TABS 0 03/20 DIAZEPAM 85000155130 Rachna Myers RN DIGOXIN 125 MCG TABS 03/20 DIGOXIN 54803390888 Rachna Myers RN TRAMADOL HCL 50 MG TABS 03/06 TRAMADOL HCL 87121373974 Rachna Myers RN SIMVASTATIN 20 MG TABS 03/06 SIMVASTATIN 47927111377 Rachna Myers RN DORZOLAMIDE HCL-TIMOLOL MAL 2-0.5 % SOLN 03/06 DORZOLAMIDE HCL-TIMOLOL MAL 10603085956 Rachna Myers RN LISINOPRIL-HYDROC HLOROTHIAZIDE 10-12.5 MG TABS 03/06 LISINOPRIL-HYDROC HLOROTHIAZIDE 70682413781 Rachna Myers RN LATANOPROST 0.005 % SOLN 03/06 LATANOPROST 47209512484 Rachna Myers RN COLESTID 1 GM TABS COLESTIPOL HCL 94880715282 Rachna Myers RN DOXYCYCLINE HYCLATE 100 MG CAPS 12/26 DOXYCYCLINE HYCLATE 67967091452 Rachna Myers RN FLAGYL 500 MG ORAL TABLET 0 METRONIDAZOLE 96092709848 Rachna Myers RN PRIMIDONE 250 MG TABS 11/16 PRIMIDONE 15981270297 Rachna Myers RN BUPROPION HCL 75 MG TABS 03/20 BUPROPION HCL 68265100045 Rachna Myers RN KLOR-CON 20 MEQ PACK 03/06 POTASSIUM CHLORIDE 64741963958 Rachna Myers RN ZOLPIDEM TARTRATE 10 MG TABS 03/06 ZOLPIDEM TARTRATE 14503610645 Rachna Myers RN MECLIZINE HCL 25 MG TABS 03/06 MECLIZINE HCL 14424894999 Rachna Myers RN LEFLUNOMIDE 20 MG TABS 03/06 LEFLUNOMIDE 20744054134 Rachna Myers RN IMURAN 50 MG TABS 03/06 AZATHIOPRINE 99620286120 Rachna Myers RN LEVAQUIN 500 MG ORAL TABLET Take 1 tablet by mouth daily 12/19 LEVOFLOXACIN 57640680170 [facility] FLAGYL 500 MG ORAL TABLET Take one (1) tablet by mouth three times a day METRONIDAZOLE 47353469551 [facility] DOXYCYCLINE HYCLATE 100 MG CAPS Take one (1) tablet by mouth twice a day 12/26 DOXYCYCLINE HYCLATE 23250893947 [facility] Medications Administered No information available. 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
--- OUTSIDE RECORDS SUMMARY | 2025-05-02 12:49 | XMS_ITS | Encounter Summary ---
Author Organization [facility] Address [address] [place] [address] Care Team Providers Care Toby Maker Name Role Phone Miller Hazel MD Primary Care Provider [phone] Reason for Visit * Reason Onset Date Comments Med Refill 03/12/2025 Encounter Details Date Type Department Care Team (Late Contact Info) Description 03/12/2025 Refill [facility] [address] [place] [address] Annika Sheridan MD [address] [address] 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 Tobacco Use Types [...] Department Care Team (Late Contact Info) Description 11/13/2025 10:30 AM EST Office Visit [facility] [address] [place] [address] Annika Sheridan MD [address] [address] documented as of this encounter Visit Diagnoses Not on filedocumented in this encounter Additional Health Concerns Assessment Noted Time A fall risk assessment has been complete d for the patient 11/07/2024 11:20 AM EST A Body Mass Index follow-up plan has been documented for the patient 11/07/2024 12:26 PM EST documented as of this encounter Care Teams Toby Maker Relationship Specialty Start Date End Date Miller Hazel MD [address] [place] [address] PCP - General 08/04/21 documented as of this encounter
--- OUTSIDE RECORDS SUMMARY | 2025-05-02 12:49 | XMS_ITS | Encounter Summary ---
Author Organization [facility] Address [address] [place] [address] Care Team Providers Care Recovery Analyst Name Role Phone Miller Hazel MD Primary Care Provider [phone] Reason for Visit * Reason Onset Date Comments Med Refill 03/15/2025 Encounter Details Date Type Department Care Team (Late Contact Info) Description 03/15/2025 Refill [facility] [address] [place] [address] Annika Sheridan MD [address] [address] 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 Tobacco Use Types [...] Description 11/13/2025 10:30 AM EST Office Visit [facility] [address] [place] [address] Annika Sheridan MD [address] [address] documented as of this encounter Visit Diagnoses Not on filedocumented in this encounter Additional Health Concerns Assessment Noted Time A fall risk assessment has been complete d for the patient 11/07/2024 11:20 AM EST A Body Mass Index follow-up plan has been documented for the patient 11/07/2024 12:26 PM EST documented as of this encounter Care Teams Recovery Analyst Relationship Specialty Start Date End Date Miller Hazel MD [address] [place] [address] PCP - General 08/04/21 documented as of this encounter
--- OUTSIDE RECORDS SUMMARY | 2025-05-02 12:49 | XMS_ITS | Encounter Summary ---
Author Organization [facility] Address [address] [place] [id number] Care Team Providers Care Production Engine Repairer Name Role Phone Miller Hazel MD Primary Care Provider [phone] Encounter Details Date Type Department Care Team (Latest Contact Info) Description 05/01/2025 Travel 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 Tobacco Use Types Packs/Day Years [...] or training? 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 [address] [facility] [address] [place] [address] Winnie Laura, MANAGEMENT PROFESSOR [address] [place] [address] 03/04/2026 10:45 AM EDT Office Visit [facility] [address] [facility] [address] [place] [address] Jerson Underwood MD [address] [facility] [address] [place] [address] 05/01/2026 11:00 AM EDT Office Visit [facility] [address] [facility] [address] [place] [address] Radha Lowry, MANAGEMENT PROFESSOR [address] [facility] [address] [place] [address] documented as of this encounter Goals Goal Patient Goal Type Associated Problems Recent Progress Patient-Stated? Author Autogenera roni Goal Care Plan Autogenerated Problem No Wendie Gonzalez documented as of this encounter Visit Diagnoses Not on filedocumented in this encounter Additional Health Concerns Active Problems Noted Date Diagnosed Date Autogenerated Problem 01/14/2025 documented as of this encounter Care Teams Production Engine Repairer Relationship Specialty Start Date End Date Miller Hazel MD [address] [facility] [address] [facility] [address] [place] [id number] PCP - General Adolescent Medicine 10/30/19 documented as of this encounter
--- OUTSIDE RECORDS SUMMARY | 2025-05-02 12:50 | XMS_ITS | Referral Summary ---
Author Organization [facility] ([place], [place], [place], [place]) Address [address] [place] [address] Care Team Providers Care Rn Perioperative Name Role Phone Miller Hazel MD Primary Care Provider [phone] Allergies Active Allergy Reactions Criticality Noted Date [...] Date Arnaud rded Speak language other than Djiboutian at home Not on file 10/01/2023 Want [...] Plan of Treatment Not on file Insurance [facility] MEDICARE PPO MEDICAID OF [place] Advance Directives For more information, please contact: [phone] * Full Code (Latest Code Status on File) Date Activated Date Inactivated Comments 06/30/2023 12:33 PM 07/06/2023 2:55 PM Care Teams Rn Perioperative Relationship Specialty Start Date End Date Miller Hazel MD [address] [place] [address] PCP - General Adolescent Medicine 06/30/23
--- OUTSIDE RECORDS SUMMARY | 2025-05-02 12:50 | XMS_ITS ---
Author Organization [facility] Care Team Providers Care Hospital Director Name Role Phone Marisela Del Cid) Unavailable Unavail able Miller Hazel Unavailable Unavailable Allergies and adverse reactions Code CodeSystem Substance Reaction Severity StartDate Concern Status 8704 RXNORM Prochlorperazine Unknown 08/22/2021 acti ve 7804 RXNORM Oxycodone Unknown 08/22/2021 active 5640 RXNORM Ibuprofen Unknown 08/22/2021 active Care Team Name Role Address Phone Organization Dates Miller Hazel PCP [address] [place] [address], [place], [address], [place] (Office): [facility] 08/22/2021 - 09/25/2021 Marisela Dozier) [place], [address], [place] (Office): : [facility] 08/22/2021 - 09/25/2021 Goals Section [...] skin test; unspecified formulation expiry: 12/12/2022 Mfg: Getable Given 0.5 ml Left Forearm subcutaneously 98 [...] ACUTE ANGLE-CLOSURE GLAUCOMA, UNSPECIFIED EYE 08/22/2021 08/22/[address] completed 2 ANEMIA IN OTHER CHRONIC DISEASES CLASSIFIED ELSEWHERE 08/22/[address] active 3 ANEMIA, UNSPECIFIED 08/22/[address] active 4 CARDIAC MURMUR, UNSPECIFIED 08/22/[address] active 5 CHRONIC KIDNEY DISEASE, UNSPECIFIED 08/22/[address] active 6 DISORDER OF THYROID, UNSPECIFIED 08/22/[address] active 7 ELEVATED ERYTHROCYTE SEDIMENTATION RATE 08/22/[address] active 8 EPIGASTRIC PAIN 08/22/[address] ac tive 9 ESSENTIAL (PRIMARY) HYPERTENSION 08/22/[address] active 10 GASTRO-ESOPHAGEAL REFLUX DISEASE WITHOUT ESOPHAGITIS 08/22/[address] active 11 HYPERLIPIDEMIA, UNSPECIFIED 08/22/[address] active 12 HYPO-OSMOLALITY AND HYPONATREMIA 08/22/[address] active 13 MUSCLE WEAKNESS (GENERALIZED) 08/22/[address] active 14 OTHER REDUCED MOBILITY 08/22/[address] active 15 OTHER SPECIFIED ARTHRITIS, UNSPECIFIED SITE 08/22/[address] active 16 PAIN IN UNSPECIFIED JOINT 08/22/[address] active 17 PALPITATIONS 08/22/[address] activ e 18 PERIPHERAL VASCULAR DISEASE, UNSPECIFIED 08/22/[address] active 19 PROBLEM RELATED TO SOCIAL ENVIRONMENT, UNSPECIFIED 08/22/[address] active 20 SYSTEMIC LUPUS ERYTHEMATOSUS, UNSPECIFIED 08/22/[address] active 21 UNSPECIFIED DISORDER OF NOSE AND NASAL SINUSES 08/22/[address] active 22 UNSPECIFIED GLAUCOMA 08/22/[address] active 23 UNSTEADINESS ON FEET 08/22/[address] active 24 URINARY TRACT INFECTION, SITE NOT SPECIFIED 08/22/[address] active Reason for Referral No Reasons for Referral Entered 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 Observation Description Start Date End Date Code Code System Current Smoking Status Tobacco smoking consumption unknown 368050115 SNOMED CT Sex Assigned At Female 1945 59057-1 [facility] Gender Identity Vital Signs Code Code System Vitals Name Values and Units Timing Information 60560-5 [facility] Pain Level Value=2.0 09/25/2021 8310-5 [facility] Body Temperature Value=98.0 Units= F 09/25/2021 64114-6 [facility] O2 % BldC Oximetry Value=98.0 Units= % 09/25/2021 91881-0 LOINC Weight Enqyh=671.8 Units=Lbs 01/2022 8867-4 [facility] Heart rate Value=64.0 Units=/min 8462-4 [facility] Blood Pressure-Diastolic Value=48 Un its=mmHg 09/11/2021 8480-6 [facility] Blood Pressure-Systolic Rcezj=761 Un its=mmHg 09/11/2021 9279-1 [facility] Respiratory Rate Value=18.0 Units=/m in 09/10/2021 8302-2 [facility] Height Value=64.0 Units=Inches 08/22/2021
--- OUTSIDE RECORDS SUMMARY | 2025-05-02 12:50 | XMS_ITS | Encounter Summary ---
[facility] Address [address] [place] [id number] Care Team Providers Care Tire Molder Name Role Phone Miller Hazel MD Primary Care Provider [phone] Reason for Visit * Reason Onset Date Comments BERNADINE-CARDIAC CLEARANCE 03/29/2025 Encounter Details Date Type Department Care Team (Late st Contact Info) Description 03/29/2025 Telephone [facility] [address] [facility] [address] [place] [address] Jerson Underwood MD [address] [place] [address] BERNADINE-CARDIAC CLEARANCE 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 Tobacco Use Types Packs/Day Years [...] or training? Not on file Preferred Language Tunisian 12/08/2024 Comments No Sex and Gender Information Value Date Recorded Sex Assigned at Female 02/17/2024 8:23 AM EDT Legal Sex Female 12:34 PM EDT Gender Identity Not on file Sexual Orientation Not on file Occupation Industry Job Start Date Job End Date [employer] Not on file Not on file Not on olivia e documented as of this encounter Miscellaneous Notes * Telephone Encounter - Lucy Beyer RN - 04/02/2025 1:55 PM EDT Spoke to pt. She is not currently having any cardiac symptoms. Called Dr. Malone's office to get fax number. Clearance letter sent. * Telephone Encounter - Lucy Beyer RN - 03/30/2025 4:05 PM EDT Please advise on clearance. Pt last appt 02/05/25, Next appt 03/04/26. Per chart pt only taking ASA 81 mg. * Telephone Encounter - Genesis Van RegSched Rep - 03/29/2025 10:50 AM EDT REQUEST FOR CARDIAC CLEARANCE Caller name: Yoko Jerez Surgeon's name: DR. MALONE Type of planned surgery: PAIN MANAGEMENT INJECTION Date of planned surgery: WAITING FOR CC Type of anesthesia: N/A Have you been experiencing chest pain or shortness of breath? Is your doctor requesting for you to stop any of your medications prior to your surgery? Where should we fax the clearance to? COULD NOT HEAR PT, DISCONNECTED CALL AND CALLED PT BACK STILL COULD NOT HEAR PT. documented in this encounter Plan of Treatment Upcoming Encounters Date Type Department Care Team (Late st Contact Info) Description 07/10/2025 10:30 AM EDT Office Visit [facility] [address] [facility] [address] [place] [address] Winnie Laura, OLIVING MACHINE OPERATOR [address] [place] [address] 03/04/2026 10:45 AM EDT Office Visit [facility] [address] [facility] [address] [place] [address] Jerson Underwood MD [address] [facility] [address] [place] [address] 05/01/2026 11:00 AM EDT Office Visit [facility] [address] [facility] [address] [place] [address] Radha Lowry, OLIVING MACHINE OPERATOR [address] [facility] [address] [place] [address] documented as of this encounter Goals Goal Patient Goal Type Associated Problems Recent Progress Patient-Stated? Author Autogenera roni Goal Care Plan Autogenerated Problem No Wendie Gonzalez documented as of this encounter Visit Diagnoses Not on filedocumented in this encounter Additional Health Concerns Active Problems Noted Date Diagnosed Date Autogenerated Problem 01/14/2025 documented as of this encounter Care Teams Tire Molder Relationship Specialty Start Date End Date Miller Hazel MD [address] [place] [facility] [address] [facility] [address] [place] [address] PCP - General Adolescent Medicine 10/30/19 documented as of this encounter
--- OUTSIDE RECORDS SUMMARY | 2025-05-02 12:50 | XMS_ITS | Clinical Summary ---
[facility] Address [address] [place] [id number] Care Team Providers Care Precision Dancer Name Role Phone Miller Hazel MD Primary Care Provider [phone] Allergies Active Allergy Reactions Criticality Noted Date Comments Aspirin Other (See Comments) Low 02/12/2016 Renal issues 325MG ONLY Ibuprofen Unknown - Low Severity Low 08/22/2021 KIDNEY ISSUES Metolazone Angioedema High 03/12/2021 Tolerated chlorthalidone Oxycodone-Acetaminophe n Hallucinations Medium 07/19/2013 Prochlorperazine Seizure 01/05/2025 prochlorperazine Prochlorperazine Edisylate Other (See Comments) High 07/19/2013 Seizures (Compazine) Medications primidone (MYSOLINE) 250 MG tablet Take 1 tablet by mouth 2 (Two) Times a Day. 02/23/20 Active cetirizine (zyrTEC) 10 MG tablet Take 1 tablet by mouth Daily. Active buPROPion (WELLBUTRIN) 100 MG tablet Take 1 tablet by mouth 2 (Two) Times a Day. 02/23/20 Active potassium chloride (K-DUR,KLOR-CO N) 20 MEQ CR tablet Take 1 tablet by mouth 2 (Two) Times a Day. Takes one extra tablet daily if experiencing cramps 05/08/20 Active predniSONE (DELTASONE) 5 MG tablet Take 2 tablets by mouth Daily. ferry terminal agent 04/24/20 19 Active methIMAzole (TAPAZOLE) 5 MG tablet Take 1 tablet by mouth Daily. Active gabapentin (NEURONTIN) 300 MG capsule Take 1 capsule by mouth 5 (Five) Times a Day. 02/05/20 Active fluticasone (FLONASE) 50 MCG/ACT nasal spray Administer 1 spray into the nostril(s) as directed by provider 2 (Two) Times a Day. 03/16/20 Active donepezil (ARICEPT) 10 MG tablet Take 1 tablet by mouth Every Night. 04/26/20 Active vitamin C (ASCORBIC ACID) 500 MG tablet Take 1 tablet by mouth Daily. Active montelukast (SINGULAIR) 10 MG tablet Take 1 tablet by mouth Every Night. Active carbidopa-levo dopa (SINEMET) 25-100 MG per tablet Take 1 tablet by mouth Daily With Breakfast & Dinner. 03/19/20 21 Active meclizine (ANTIVERT) 25 MG tablet 1 tablet Every 8 (Eight) Hours. Active Mitigare 0.6 MG capsule capsule Take 1 capsule by mouth Daily. 06/03/20 22 Active bumetanide (BUMEX) 1 MG tablet TAKE ONE TABLET BY MOUTH EVERY DAY 30 tablet 3 09/04/20 22 Active allopurinol (ZYLOPRIM) 100 MG tablet Take 1 tablet by mouth Every Night. 03/11/20 23 Active memantine (NAMENDA) 10 MG tablet Take 1 tablet by mouth 2 (Two) Times a Day. 01/14/20 23 Active Cholecalcifero l 25 MCG (1000 UT) tablet Take 1 tablet by mouth Daily. Active clopidogrel (PLAVIX) 75 MG tablet Take 1 tablet by mouth Daily. LAST DOSE OF PLAVIX ON 12/07/[address] Brewer Active carvedilol (COREG) 6.25 MG tablet Take 1 tablet by mouth 2 (Two) Times a Day With Meals. Active lidocaine (LIDODERM) 5 % Place 1 patch on the skin as directed by provider Daily. 07/20/20 23 Active multivitamin with minerals (MULTIVITAMIN ADULTS PO) Take 1 tablet by mouth Daily. Active Zinc Sulfate (ZINC 15 PO) Take 1 tablet by mouth Daily. Active simethicone (MYLICON) 80 MG chewable tablet Chew 1 tablet Every 6 (Six) Hours As Needed for Flatulence. Active Benlysta 200 MG/ML solution auto-injector 11/02/19 24 Active oxybutynin XL (DITROPAN-XL) 10 MG 24 hr tablet 01/31/20 24 Active rosuvastatin (CRESTOR) 20 MG tablet TAKE ONE TABLET BY MOUTH EVERY DAY 90 tablet 3 04/11/20 24 Active pantoprazole (PROTONIX) 40 MG EC tablet Take 1 tablet by mouth Daily. Active famotidine (Pepcid) 40 MG tablet Take 1 tablet by mouth Daily. Active aspirin 81 MG EC tabletIndicati ons:VTE Prophylaxis Take 1 tablet by mouth Every 12 (Twelve) Hours. Indications: VTE Prophylaxis 60 tablet 12/19/19 25 Active HYDROcodone-ac etaminophen (NORCO) 7.5-325 MG per tabletIndicati ons:Status post right knee replacement Take 1 tablet by mouth Every 4 (Four) Hours As Needed for Moderate Pain. 30 tablet 12/19/19 25 Active albuterol sulfate HFA 108 (90 Base) MCG/ACT inhalerIndicat ions:COPD mixed type Inhale 2 puffs Every 4 (Four) Hours As Needed for Wheezing. 18 g 4 01/06/20 25 Active metoclopramide (REGLAN) 5 MG tablet TAKE ONE TABLET BY MOUTH TWICE DAILY 30 minutes BEFORE meals 01/06/20 25 Active timolol (TIMOPTIC) 0.5 % ophthalmic solution 1 drop 2 (Two) Times a Day. Active empagliflozin (Jardiance) 25 MG tablet tablet TAKE ONE TABLET BY MOUTH EVERY DAY 30 tablet 04/10/20 25 Active empagliflozin (Jardiance) 25 MG tablet tablet TAKE ONE TABLET BY MOUTH EVERY DAY 90 tablet 1 10/10/19 25 025 Discontinued Active Problems Problem Noted Date Diagnosed Date Primary localized osteoarthritis of right knee 0 12/14/2024 Status post right knee replacement 12/14/2024 Primary localized osteoarthritis of right knee 0 02/17/2024 Status post left knee replacement 02/17/2024 Depression 02/17/2024 Parkinson disease 02/17/2024 Obesity (BMI 30-39.9) 02/17/2024 Chronic kidney disease, stage III (moderate) JOSS (obstructive sleep apnea) 12/28/2023 S/P reverse total shoulder arthroplasty, right 1 10/10/2022 GERD without esophagitis 08/10/2023 Hyperlipidemia 08/10/2023 Carotid stenosis, symptomatic w/o infarct, left 03/16/2023 Anemia 04/04/2020 Mild COPD (Stage I) 04/21/2019 Mild pulmonary hypertension (RVSP 36mmHg by TTE) 04/21/2019 Former smoker (None since 1990) 04/21/2019 R/O Diastolic dysfunction 04/21/2019 History of DVT (deep vein thrombosis) 04/21/2019 Lumbosacral radiculopathy 05/19/2016 Migraine without aura, not refractory 02/12/2016 Idiopathic osteoarthritis 07/22/2015 Blood in urine 07/21/2015 Hypertensive disorder 07/21/2015 Abdominal pain 07/20/2015 Coronary arteriosclerosis in tetlin artery 07/20 Systemic lupus erythematosus 07/20/2015 Herniated lumbar intervertebral disc 07/03/2015 Spinal stenosis of lumbar region 07/03/2015 Low back pain 07/03/2015 Resolved Problems Problem Noted Date Diagnosed Date Resolved Date Pain in right knee 07/21/2015 Pain 07/20/2015 05/01/2025 Encounters Date Type Department Care Team Description 05/01/2025 11:00 AM EDT Office Visit [facility]ERY [address] [facility] [address] [place] [address] Radha Lowry APRN Stenosis of left carotid artery (Primary Dx) 05/01/2025 Travel 04/10/2025 Refill [facility] [address] [facility] [address] [place] [address] Jerson Underwood MD Med Refill 03/29/2025 Telephone [facility] [address] [place] [address] Jerson Underwood MD BERNADINE-CARDIAC CLEARANCE 02/05/2025 10:45 AM EDT Office Visit [facility] [address] [place] [address] Garima Valdovinos APRN Coronary arteriosclerosis in tetlin artery (Primary Dx); Mixed hyperlipidemia; Primary hypertension; Carotid stenosis, symptomatic w/o infarct, left 02/05/2025 Travel from Last 3 Months Immunizations Immunization Administration Dates Next Due COVID-19 (MODERNA) 1st,2nd,3 rd Dose Monovalent 12/18/2020,11/18/2020,10/30/2020 Flu Vaccine Quad PF >36MO 06/20/2018 Fluzone High-Dose 65+YRS 06/20/2024,09/0 05/2024,06/08/2022,2020,05/29/2020 Fluzone High-Dose 65+yrs 05/29/2024,06/22/2023 INFLUENZA SPLIT TRI 06/28/2019,07/07/2017 Pneumococcal Conjugate 13-Va lent (PCV13) 10/02/2019 Pneumococcal Conjugate 20-Va lent (PCV20) 07/05/2023 Pneumococcal, Unspecified 09/20/2016 Shingrix 05/09/2020,06/28/2019 TST, UF 08/22/2021 Tdap 07/29/2023 Family History 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 Relation Name Comments Cholelithiasis Brother 2 Hypertension Father Dez Suicidality Father Dez Alcohol abuse Mother Annemarie Almaguer Hypertension Mother Annemarie Almaguer Kidney disease Mother Annemarie Almaguer Breast cancer Niece 1 Leukemia Niece 1 Autoimmune disease Niece 2 Arthritis Sister 1 Anne Arundel Cancer Sister 1 Anne Arundel Heart disease Sister 1 Anne Arundel Stroke Sister 2 Symone sister Parkinsonism Sister 3 Colon polyps Sister 4 Cancer Sister 5 Stroke Sister 9 Scynara Relation Name Status Comments Brother 1 Brother 2 Alive Father Dez age 50 due to suicide Maternal Grandfather Maternal Grandmother Mother Annemarie Almaguer age 60 due to alcoholism Niece 1 Alive Niece 2 Alive Paternal Grandfather Paternal Grandmother Sister 1 Anne Arundel Sister 2 Symone sister Alive Sister 3 Alive Sister 4 Alive Sister 5 Alive Sister 6 Alive Sister 7 Violet, Symone and Jessica Alive Sister 8 Symone Alive Sister 9 Scynara Alive 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 Tobacco Use Types Packs/Day Years [...] or training? 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 Not on file Not on file Not on olivia e Last Filed Vital Signs Vital Sign Reading Time Taken Comments Blood Pressure 120/60 05/01/2025 11:13 AM EDT Pulse 74 05/01/2025 11:12 AM EDT Temperature 36.6 C (97.9 F) 05/01/2025 11:12 AM EDT Respiratory Rate 17 12/18/2024 11:15 AM EDT Oxygen Saturation 97% 05/01/2025 11:12 AM EDT Inhaled Oxygen Concentration - - Weight 92.8 kg (204 lb 9.6 oz) 05/01/2025 11:12 AM EDT Height 154.9 cm (5' 1 ) 05/01/2025 11:12 AM EDT Body Mass Index 38.66 05/01/2025 11:12 AM EDT Plan of Treatment Upcoming Encounters Date Type Department Care Team (Late st Contact Info) Description 07/10/2025 10:30 AM EDT Office Visit [facility] PUL[facility] & [facility]ICAL CARE MEDICINE [address] [facility] [address] [place] [address] Winnie Laura, INSOLE PRESSER [address] [place] [address] 03/04/2026 10:45 AM EDT Office Visit [facility] [address] [facility] [address] [place] [address] Jerson Underwood MD [address] [facility] [address] [place], [place] [id number] 05/01/2026 11:00 AM EDT Office Visit [facility]GERY [address] [facility] [address] [place] [address] Radha Lowry, INSOLE PRESSER [address] [facility] [address] [place] [address] Health Maintenance Due Date Last Done Comments HEPATITIS C SCREENING 04/14/2019 DXA SCAN 04/12/2021 04/12/2019, 03/21, 02/17/2017 ANNUAL WELLNESS VISIT 09/18/2022 09/18/2021, 018 RSV Vaccine - Adults (1 - 1- dose 75+ series) 2022 LIPID PANEL 05/12/2024 05/12/2023, 03/22, 08/25/2022, Additional history exists COVID-19 Vaccine (2023-2 5 season) 2024 07/29/2023, 04/23/2022, 12/18/2020, Additional history exists INFLUENZA VACCINE 06/20/2025 06/20/2024, , 05/29/2024, Additional history exists TDAP/TD VACCINES (2 - Td or Tdap) 07/29/2033 023 ZOSTER VACCINE Completed 05/09/2020, 06/28/2019 COLONOSCOPY Discontinued 04/15/2022, 07/12/2017 COLORECTAL CANCER SCREENING Discontinued MAMMOGRAM Discontinued 05/12/2022, 04/21, 08/18/2021, Additional history exists Pneumococcal Vaccine 50+ Completed 023, 10/02/2019, 09/20/2016 HEMOGLOBIN A1C Discontinued 12/08/2024, 01/19, 08/05/2023, Additional history exists COLOGUARD Discontinued COLON CANCER SCREENING 5 YEA R SIGMOIDOSCOPY Discontinued CT COLONOGRAPHY Discontinued FECAL OCCULT BLOOD TEST Discontinued FIT Testing (1 year) Discontinued Goals Goal Patient Goal Type Associated Problems Recent Progress Patient-Stated? Author Autogenera roni Goal Care Plan Autogenerated Problem No Wendie Gonzalez Medical Devices Implanted Type Area Broadcast Operations Engineer Device Identifier Shelf Expiration Date Model / Serial / Lot Glenoshere Inhance Pls/4 32mm - [id number] Implanted:Q ty: 1 on 08/10/2023 by Jaskaran Simpson Jr., MD at [facility] Implant Right: Shoulder DEPUY SYNTHES 01/17/2027 [id number] / / [id number] Baseplt Modular Inhance 24mm Sm - [id number] Implanted:Q ty: 1 on 08/10/2023 by Jaskaran Simpson Jr., MD at [facility] Implant Right: Shoulder DEPUY SYNTHES 03/19/2028 [id number] / / [id number] Scrw Lk Inhance Slf/Drl 20/25mm - [id number] Implanted:Q ty: 1 on 08/10/2023 by Jaskaran Simpson Jr., MD at [facility] Implant Right: Shoulder DEPUY SYNTHES 05/20/2028 [id number] / / [id number] Scrw Centrl Inhance 6x35mm - [id number] Implanted:Q ty: 1 on 08/10/2023 by Jaskaran Simpson Jr., MD at [facility] Implant Right: Shoulder DEPUY SYNTHES 05/20/2027 [id number] / / [id number] Sut Nonabs Bone Dynacord Uhmwpe W/Os/6 Ndl 2pk Strip/Avery - [id number] Implanted:Q ty: 1 on 08/10/2023 by Jaskaran Simpson Jr., MD at [facility] Implant Right: Shoulder DEPUY MITEK [id number] / / Shll Hum/Shldr Inhance Rev Pls/O 32mm Sm - [id number] Implanted:Q ty: 1 on 08/10/2023 by Jaskaran Simpson Jr., MD at [facility] Implant Right: Shoulder DEPUY SYNTHES 07/20/2027 [id number] / / [id number] Stem Hum/Shldr Inhance 17l189eo Sm Std - [id number] Implanted:Q ty: 1 on 08/10/2023 by Jaskaran Simpson Jr., MD at [facility] Implant Right: Shoulder DEPUY 04/19/2028 [id number] / / [id number] Liner Hum/Shldr Inhance Rev Pls/0 Rt/Retnt 32mm - [id number] Implanted:Q ty: 1 on 08/10/2023 by Jaskaran Simpson Jr., MD at [facility] Implant Right: Shoulder DEPUY 07/20/2027 [id number] / / [id number] Cp Depuy Shldr Rev Inhance Centrl/Scrw - [id number] Implanted:Q ty: 1 on 08/10/2023 by Jaskaran Simpson Jr., MD at [facility] Implant Right: Shoulder DEPUY CAPSHLDREVINHANC EC ENTRLSCRW / / Cmt Bone Palacos R Hi/Visc 1x40 - [id number] Implanted:Q ty: 2 on 02/17/2024 by Naseem Brewer MD at [facility] Implant Left: Knee [employer] MED[employer] 07/20/2028 [id number] / / [id number] Dev Contrl Tiss Stratafix Spiral Mncryl Pls Ps 3/0 30cm Ud - [id number] Implanted:Q ty: 1 on 02/17/2024 by Naseem Brewer MD at [facility] Implant Left: Knee ETHICON DIV OF J AND J [id number] / / [id number] Contrl Tiss Stratafix Symm Pds Plus Claudia Ct-1 60cm - [id number] Implanted:Q ty: 1 on 02/17/2024 by Naseem Brewer MD at [facility] Implant Left: Knee ETHICON DIV OF MARIA T [id number] / / Base Tib/Kn Gen2 Nonpor Ti Sz3 Lt - [id number] Implanted:Q ty: 1 on 02/17/2024 by Naseem Brewer MD at [facility] Implant Left: Knee ACE AND NEPHEW [id number] 08/19/2033 [id number] / / [id number] Comp Fem Legion Oxinium Ps Nrw Sz5n Lt - [id number] Implanted:Q ty: 1 on 02/17/2024 by Naseem Brewer MD at [facility] Implant Left: Knee ACE AND NEPHEW [id number] 10/19/2033 [id number] / / [id number] Pat Resrf Gen2 7.5x29mm - [id number] Implanted:Q ty: 1 on 02/17/2024 by Naseem Brewer MD at [facility] Implant Left: Knee ACE AND NEPHEW [id number] 09/26/2033 [id number] / / [id number] Insrt Art/Kn Legion Ps Hf Xlpe Sz3to4 10mm - [id number] Implanted:Q ty: 1 on 02/17/2024 by Naseem Brewer MD at [facility] Implant Left: Knee ACE AND NEPHEW [id number] 11/04/2033 [id number] / / [id number] Totl Kn Atul Ace Nephew - [id number] Implanted:Q ty: 1 on 02/17/2024 by Naseem Brewer MD at [facility] Implant Left: Knee ACE AND NEPHEW CAPKNEETOTALSN2 / / Cmt Bone Palacos R Hi/Visc 1x40 - [id number] Implanted:Q ty: 2 on 12/14/2024 by Naseem Brewer MD at [facility] Implant Right: Knee [employer] 02/17/2029 [id number] / / [id number] Base Tib/Kn Gen2 Nonpor Ti Sz2 Rt - [id number] Implanted:Q ty: 1 on 12/14/2024 by Naseem Brewer MD at [facility] Implant Right: Knee ACE AND NEPHEW 04/26/2034 [id number] / / [id number] Pat Resrf Gen2 7.5x29mm - [id number] Implanted:Q ty: 1 on 12/14/2024 by Naseem Brewer MD at [facility] Implant Right: Knee ACE AND NEPHEW 05/23/2034 [id number] / / [id number] Comp Fem/Kn Legion Oxinium Ps Sz4 Rt - [id number] Implanted:Q ty: 1 on 12/14/2024 by Naseem Brewer MD at [facility] Implant Right: Knee ACE AND NEPHEW 06/26/2033 [id number] / / [id number] Insrt Art/Kn Legion Ps Hf Xlpe Sz1to2 9mm - [id number] Implanted:Q ty: 1 on 12/14/2024 by Naseem Brewer MD at [facility] Implant Right: Knee ACE AND NEPHEW 08/26/2027 [id number] / / [id number] Totl Kn Atul Ace Nephew - [id number] Implanted:Q ty: 1 on 12/14/2024 by Naseem Brewer MD at [facility] Implant Right: Knee ACE AND NEPHEW CAPKNEETOTALSN2 / / Loop Recorder- Implanted:0 03/06/2024 (Quantity not on file) MAX VASCULAR Description:[facility] Procedures Procedure Name Priority Date/Time Associated Diagnosis Comments HEMOGLOBIN A1C Routine 12/08/2024 2:35 PM EDT LIPID PANEL STAT 05/12/2023 8:22 AM EDT Pulmonary hypertension Hyperlipidemia, unspecified hyperlipidemia type SCANNED - DEXA 04/12/2019 from Last 3 Months or Most Recently Relevant to Health Maintenance Results * (ABNORMAL) Hemoglobin A1c (12/08/2024 2:35 PM EDT) Hemoglobin A1C 5.80(H) 4.80 - 5.60 % 12/08/2024 3:43 PM EDT [facility] Blood Venipuncture / Unknown 12/08/2024 2:35 PM EDT 12/08/2024 3:13 PM EDT [facility] - 12/08/2024 3:43 PM EDT Hemoglobin A1C Ranges: Increased Risk for Diabetes 5.7% to 6.4% Diabetes >= 6.5% Diabetic Goal < 7.0% Naseem Brewer MD LAB BLOOD ORDERABLES F inal Result [facility]
[address] [place] [address], * (ABNORMAL) Lipid Panel (05/12/2023 8:22 AM EDT) Total Cholesterol 184 0 - 200 mg/dL 05/12/2023 9:14 AM EDT [facility] Triglycerides 48 0 - 150 mg/dL 05/12/2023 9:14 AM EDT [facility] HDL Cholesterol 111(H) 40 - 60 mg/dL 05/12/2023 9:14 AM EDT [facility] LDL Cholesterol 63 0 - 100 mg/dL 05/12/2023 9:14 AM EDT [facility] VLDL Cholesterol 10 5 - 40 mg/dL 05/12/2023 9:14 AM EDT [facility] LDL/HDL Ratio 0.57 05/12/2023 9:14 AM EDT [facility] Blood Line / Unknown 05/12/2023 8: 22 AM EDT 05/12/2023 8:46 AM EDT [facility] - 05/12/2023 9:14 AM EDT Cholesterol Reference Ranges (U.S. Department of Health and Human Services ATP III Classifications) Desirable <200 mg/dL Borderline High 200-239 mg/dL High Risk >240 mg/dL Triglyceride Reference Ranges (U.S. Department of Health and Human Services ATP III Classifications) Normal <150 mg/dL Borderline High 150-199 mg/dL High 200-499 mg/dL Very High >500 mg/dL HDL Reference Ranges (U.S. Department of Health and Human Services ATP III Classifications) Low <40 mg/dl (major risk factor for CHD) High >60 mg/dl ('negative' risk factor for CHD) LDL Reference Ranges (U.S. Department of Health and Human Services ATP III Classifications) Optimal <100 mg/dL Near Optimal 100-129 mg/dL Borderline High 130-159 mg/dL High 160-189 mg/dL Very High >189 mg/dL us Mara Yost INSOLE PRESSER LAB BLOOD ORDERABLES Final R esult [facility]
[address] [place] [address], * SCANNED - DEXA (04/12/2019) Anatomical Region Laterality Modality Other Jose Luis Hearn MD CHART REVIEW TABS Final Resul t from Last 3 Months or Most Recently Relevant to Health Maintenance Additional Health Concerns Active Problems Noted Date Diagnosed Date Autogenerated Problem 01/14/2025 Insurance [place]ID [place] Member Subscriber Plan / Payer (Ef fective 2023-Present) Name:Yoko Jerez Relation to Subscriber:Self Name:Yoko Jerez Payer ID:[id number] Group ID:Not on file Type:Not on file [address] MED[address] ADVANTAGE [facility] HMO Advance Directives * CPR (Attempt to Resuscitate) (Latest Code Status on File) Date Activated Date Inactivated Comments 12/14/2024 7:44 PM 12/18/2024 3:36 PM Question Answer Comments Code Status (Patient has no pulse and is not breathing): CPR (Attempt to Resuscitate) Medical Interventions (Patie nt has pulse or is breathing): Full Support Level Of Support Discussed With: Patient * CPR (Attempt to Resuscitate) Date Activated Date Inactivated Comments 02/17/2024 3:36 PM 02/21/2024 3:07 PM Question Answer Comments Code Status (Patient has no pulse and is not breathing): CPR (Attempt to Resuscitate) Medical Interventions (Patie nt has pulse or is breathing): Full Support Level Of Support Discussed With: Patient * CPR (Attempt to Resuscitate) Date Activated Date Inactivated Comments 05/12/2023 11:29 AM 05/12/2023 7:18 PM Question Answer Comments Code Status (Patient has no pulse and is not breathing): CPR (Attempt to Resuscitate) Medical Interventions (Patie nt has pulse or is breathing): Full Level Of Support Discussed With: Patient Care Teams Precision Dancer Relationship Specialty Start Date End Date Miller Hazel MD [address] [facility] [address] [place] [address] PCP - General Adolescent Medicine 10/30/19
--- OUTSIDE RECORDS SUMMARY | 2025-05-02 12:50 | XMS_ITS | Encounter Summary ---
Author Organization [facility] ystem Address [address] [place] [address] Care Team Providers Care Booster Pump Operator Name Role Phone Miller Hazel MD Primary Care Provider [phone] Reason for Visit * Reason Comments Med Refill Encounter Details Date Type Department Care Team (Late st Contact Info) Description 04/10/2025 Refill [facility]OLOG[facility] [address] [facility] [address] [place] [address] Jerson Underwood MD [address] [place] [address] Med Refill 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 Tobacco Use Types Packs/Day Years [...] or training? Not on file Preferred Language Tajik 12/08/2024 Comments No Sex and Gender Information [...] AM EDT Office Visit [facility] PULMONARY & CRITICAL CARE MEDICINE [address] [facility] [address] [place] [phone] Winnie Laura, CAPTAIN AIRLINE PILOT [address] [place] [address] 03/04/2026 10:45 AM EDT Office Visit [facility] [address] [facility] [address] [place] [address] Jerson Underwood MD [address] [facility] [address] [address] [place] [address] 05/01/2026 11:00 AM EDT Office Visit [facility] C[facility] SURGERY [address] [facility] [address] [place] [phone] Radha Lowry, CAPTAIN AIRLINE PILOT [address] [place] [address] documented as of this encounter Goals Goal Patient Goal Type Associated Problems Recent Progress Patient-Stated? Author Autogenera roni Goal Care Plan Autogenerated Problem No Wendie Gonzalez documented as of this encounter Visit Diagnoses Not on filedocumented in this encounter Additional Health Concerns Active Problems Noted Date Diagnosed Date Autogenerated Problem 01/14/2025 documented as of this encounter Care Teams Booster Pump Operator Relationship Specialty Start Date End Date Miller Hazel MD [address] [facility] [address] [place] [address] PCP - General Adolescent Medicine 10/30/19 documented as of this encounter
[2025-05-02 12:55] VITALS: BP 216/103; PULSE 78; RESP 20; TEMP 36.7; O2SAT 98; BMI 31.1
--- NOTE | 2025-05-02 12:57 | ECG_ITS ---
APPROVED REPORT Exam: Resting ECG HR:70 bpm ECG Measurements Heart Rate 70 AXES MN 165 P 69 QRSd 89 QRS 78 QT 362 T 71 QTc 383 Conclusion SINUS RHYTHM WITH OCCASIONAL SUPRAVENTRICULAR PREMATURE COMPLEXES SEPTAL MYOCARDIAL INFARCTION , OF INDETERMINATE AGE [40+ ms Q WAVE IN V1/V2] ABNORMAL ECG UNCONFIRMED REPORT Electronically signed by : Cory Fine, 05/02/2025 15:48:40
--- NOTE | 2025-05-02 13:02 | XR_ITS ---
FINAL REPORT CLINICAL HISTORY: Shortness of breath COMPARISON: 03/09/2023 FINDINGS: A single frontal view of the chest was obtained. No acute pulmonary opacity is present. There is no evidence of effusion or pneumothorax. Mediastinum is unremarkable. There are postoperative changes in the thoracolumbar spine and right shoulder. Heart size is normal. IMPRESSION: No acute abnormality. Reviewed, Interpreted and Dictated by Ibeth Schultz MD Transcribed by Estrella Novak Authenticated and [facility]
--- NOTE | 2025-05-02 13:02 | PC.NURSE ---
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 multiple attempts made by staff for an IV with no success.
--- NOTE | 2025-05-02 13:08 | CT_ITS ---
FINAL REPORT CLINICAL HISTORY: AMS, difficulty walking FINDINGS: CT NECK ANGIO, WITHOUT AND WITH CONTRAST TECHNIQUE: Thin section axial CT with contrast with multiplanar 3D MIP reconstruction. This study was performed with techniques to keep radiation doses as low as reasonably achievable, (ALARA). Individualized dose reduction techniques using automated exposure control or adjustment of mA and/or kV according to the patient''s size were employed. NASCET criteria and technique was utilized during interpretation. FINDINGS: Right carotid artery demonstrates moderate calcified plaque disease of the distal common carotid artery with stenosis of 260%. ICA is patent. Left carotid artery demonstrates moderate calcified plaque with high-grade stenosis of the distal CCA extending to the ICA up to 80%. Vertebrals: Left vertebral artery is dominant. No significant stenosis is present. 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 No acute large vessel occlusive disease. Reviewed, Interpreted and Dictated by Ibeth Schultz MD Transcribed by Tatiana Lr Authenticated and [facility]
--- NOTE | 2025-05-02 13:08 | CT_ITS ---
FINAL REPORT TECHNIQUE: Axial imaging of the head was obtained without contrast. This study was performed with techniques to keep radiation doses as low as reasonably achievable, (ALARA). Individualized dose reduction techniques using automated exposure control or adjustment of mA and/or kV according to the patient''s size were employed. CLINICAL HISTORY: AMS, difficulty walking COMPARISON: 03/09/2023 FINDINGS: The ventricles are normal in size. There is no evidence of hemorrhage. No masses are identified. No extra-axial fluid is seen. The sinuses are normal. There is no acute osseous abnormality. IMPRESSION: No acute intracranial abnormality. Reviewed, Interpreted and Dictated by Ibeth Schultz MD Transcribed by Tatiana Lr Authenticated and [facility]
--- NOTE | 2025-05-02 13:08 | CT_ITS ---
FINAL REPORT CLINICAL HISTORY: AMS, difficulty walking FINDINGS: CTA HEAD TECHNIQUE: Thin section axial CT with contrast with 3D MIP reconstruction This study was performed with techniques to keep radiation doses as low as reasonably achievable, (ALARA). Individualized dose reduction techniques using automated exposure control or adjustment of mA and/or kV according to the patient''s size were employed. FINDINGS: No aneurysm is seen. Major intracranial vessels are patent without significant stenosis. . IMPRESSION: Unremarkable Reviewed, Interpreted and Dictated by Ibeth Schultz MD Transcribed by Tatiana Lr Authenticated and [facility]
--- NOTE | 2025-05-02 13:10 | [facility].EDGENADL ---
Discharge Plan Disposition Patient Disposition: Home, Self-Care Prescriptions Prescriptions: No Action oxybutynin chloride 10 mg tablet extended release 24hr PO Patient Comments: TAKE ONE TABLET BY MOUTH EVERY DAY famotidine 40 mg tablet PO pantoprazole 40 mg tablet,delayed release (DR/EC) PO Patient Comments: TAKE ONE TABLET BY MOUTH EVERY DAY omeprazole 40 mg capsule,delayed release(DR/EC) 40 mg PO DAILY ascorbic acid (vitamin C) [Vitamin C] 500 mg tablet 500 mg PO DAILY Patient Comments: TAKE 1 TABLET BY MOUTH EVERY DAY bumetanide 1 mg tablet See Rx Instructions .ROUTE .COMPLEX Qty: 90 3RF Dose Instruction: TAKE THREE TABLETS BY MOUTH EVERY DAY FOR fluid Rx Instructions: TAKE THREE TABLETS BY MOUTH EVERY DAY FOR fluid metoclopramide HCl [Reglan] 5 mg tablet 5 mg PO BID Qty: 60 5RF Rx Instructions: administer 30 minutes before meals carvedilol 6.25 mg tablet 6.25 mg PO BID Patient Comments: TAKE ONE TABLET BY MOUTH TWICE DAILY donepezil 10 mg tablet 10 mg PO HS Patient Comments: TAKE ONE TABLET BY MOUTH EVERY DAY AT BEDTIME clopidogrel 75 mg tablet 75 mg PO DAILY Patient Comments: TAKE ONE TABLET BY MOUTH EVERY DAY chlorthalidone 25 mg tablet 25 mg PO DAILY Patient Comments: TAKE ONE TABLET BY MOUTH EVERY DAY allopurinol 100 mg tablet 100 mg PO DAILY Patient Comments: TAKE ONE TABLET BY MOUTH EVERY DAY bupropion HCl 100 mg tablet 100 mg PO DAILY Patient Comments: TAKE ONE TABLET BY MOUTH EVERY MORNING AND TAKE TWO TABLETS BY MOUTH EVERY DAY AT BEDTIME potassium chloride 20 mEq tablet,ER particles/crystals 20 meq PO BID Patient Comments: TAKE ONE TABLET BY MOUTH TWICE DAILY primidone 250 mg tablet 250 mg PO HS Patient Comments: TAKE ONE TABLET BY MOUTH EVERY NIGHT DIRECTED meclizine 25 mg tablet 25 mg PO TIDP PRN (Reason: Vertigo) Patient Comments: TAKE ONE TABLET BY MOUTH THREE TIMES DAILY NEEDED methimazole 5 mg tablet 5 mg PO TID Patient Comments: TAKE ONE TABLET BY MOUTH EVERY 8 HOURS gabapentin 300 mg capsule 300 mg PO 5XDAY dorzolamide-timolol 22.3-6.8 mg/mL drops 1 drp Eye-Both BID montelukast 10 mg tablet 10 mg PO PM Patient Comments: TAKE ONE TABLET BY MOUTH EVERY DAY carbidopa-levodopa 25-100 mg tablet 1 tab PO TID Patient Comments: TAKE ONE TABLET BY MOUTH THREE TIMES DAILY may take with OR without food fluticasone propionate 50 mcg/actuation spray,suspension 1 spray INTRANASAL DAILYP PRN (Reason: Allergy Symptoms) Patient Comments: instill 1-2 [place](s) IN EACH NOSTRIL EVERY DAY DIRECTED memantine 10 mg tablet 10 mg PO BID Patient Comments: TAKE ONE TABLET BY MOUTH TWICE DAILY cholecalciferol (vitamin D3) 25 mcg (1,000 unit) tablet 25 mcg PO BID Patient Comments: TAKE ONE TABLET BY MOUTH TWICE DAILY bupropion HCl 100 mg tablet 200 mg PO HS Patient Comments: TAKE ONE TABLET BY MOUTH EVERY MORNING AND TAKE TWO TABLETS BY MOUTH EVERY DAY AT BEDTIME cetirizine 10 mg Tablet 10 mg PO DAILY aspirin 81 mg Tablet,Delayed Release (Dr/Ec) 81 mg PO DAILY rosuvastatin 20 mg Tablet 20 mg PO HS Jardiance 25 mg Tablet 25 mg PO DAILY colchicine [Mitigare] 0.6 mg Capsule 0.6 mg PO DAILY albuterol sulfate 90 mcg/actuation HFA aerosol inhaler 2 puff INHALATION Q4HP PRN (Reason: Shortness Of Breath) Patient Comments: INHALE TWO PUFFS BY MOUTH EVERY 4 HOURS NEEDED FOR wheezing lidocaine 5 % adhesive patch,medicated 1 - 2 patch transdermal DAILY Patient Comments: APPLY 1-2 PATCHES TOPICALLY TO THE AFFECTED AREA ONCE DAILY AND LEAVE IN PLACE FOR 12 HOURS, THEN REMOVE AND LEAVE OFF FOR 12 HOURS docusate sodium 100 mg capsule 100 mg PO BID Patient Comments: TAKE ONE CAPSULE BY MOUTH TWICE DAILY Benlysta 200 mg/mL auto-injector 200 mg SQ DIRECTED magnesium oxide 400 mg (241.3 mg magnesium) Tablet 400 mg PO DAILY 30 Days Qty: 30 0RF albuterol sulfate 90 mcg/actuation aerosol powdr breath activated 1 inh inhalation Q6H PRN (Reason: shortness of breath or wheezing) Qty: 1 0RF azithromycin 250 mg tablet See Rx Instructions .ROUTE .COMPLEX Qty: 6 0RF Rx Instructions: For 250 mg dose pack: take 500 mg today (day 1), then 250 mg for 4 days (days 2-5) lidocaine HCl [Lidocaine Viscous] 2 % solution 1 applic mucous membrane Q12H PRN (Reason: pain) Qty: 100 0RF Referrals Follow up/Referrals: Pato Yo MD [Staff Physician, Cardiology] - See instructions Provider,Referral, [Primary Care Provider, Medical] - See instructions Activity Restrictions/Add. Instructions Additional Instructions/Restrictions: I encourage you to follow up with your national sales associate this week at [facility] and Dr. Hazel's office for tighter control of your blood pressure. We are also giving you a referral to our national sales associate, Dr. Yo. If you develop any new or worsening symptoms, such as worsening headache, confusion, facial drooping, weakness on one or both sides of your body, or if you become concerned for your health for any reason, return to the ED for evaluation. Clinical Impressions Clinical Impression: Acute encephalopathy, Hypertension Instructions Patient Instructions: DI for Altered Mental Status Print Language Print Language: Portuguese Discharge ED Provider: Robert Fine General Adult HPI <Robert Fine MD - Last Filed: 05/02/25 15:09> General Chief complaint: Altered Mental Status Stated complaint: concern for stroke Time Seen by Provider: 05/02/25 12:53 Mode of Arrival: Ambulatory Source of Information: Patient Description of Symptoms (Recalled from ER Triage Doc. by RN): patient presents to ER for complaints of altered mental status per the home private aide. Patient took some prescribed baclofen last night for the first time and woke up at 4 am this morning more confused than normal, dizziness, and fever/chills last night. patient also stated that she felt her body was jumping all over the place . the patients private nurse aide stated she has also been really unsteady since aking the baclofen. History of Present Illness HPI narrative: Patient is a 79-year-old female presenting today with changes in her mental status. Was in her normal state of health at home she has home health for functional problems only but is normally completely at her baseline and normal cognitively started taking baclofen yesterday for the first time but woke up this morning stating that she was jittery and she has been altered and confused according to those around her. No her. No fevers but she did state that she had potential chills. She denies any cough denies any urinary symptoms denies any headache denies any chest pain or any other focal symptoms leading up to this. Related Data Home Medications ?Medication ?Instructions ?Recorded ?Confirmed allopurinol 100 mg tablet 100 mg PO DAILY 04/10/23 04/11/25 bupropion HCl 100 mg tablet 100 mg PO DAILY 04/10/23 04/11/25 bupropion HCl 100 mg tablet 200 mg PO HS 04/10/23 04/11/25 carbidopa 25 mg-levodopa 100 mg 1 tab PO TID 04/10/23 04/11/25 tablet carvedilol 6.25 mg tablet 6.25 mg PO BID 04/10/23 04/11/25 chlorthalidone 25 mg tablet 25 mg PO DAILY 04/10/23 04/11/25 cholecalciferol (vitamin D3) 25 25 mcg PO BID 04/10/23 04/11/25 mcg (1,000 unit) tablet clopidogrel 75 mg tablet 75 mg PO DAILY 04/10/23 04/11/25 donepezil 10 mg tablet 10 mg PO HS 04/10/23 04/11/25 dorzolamide 22.3 mg-timolol 6.8 1 drp Eye-Both BID 04/10/23 04/11/25 mg/mL eye drops fluticasone propionate 50 1 spray intranasal DAILYP PRN 04/10/23 04/11/25 mcg/actuation nasal Allergy Symptoms spray,suspension gabapentin 300 mg capsule 300 mg PO 5XDAY Neuropathy 04/10/23 04/11/25 meclizine 25 mg tablet 25 mg PO TIDP PRN Vertigo 04/10/23 04/11/25 memantine 10 mg tablet 10 mg PO BID 04/10/23 04/11/25 methimazole 5 mg tablet 5 mg PO TID 04/10/23 04/11/25 montelukast 10 mg tablet 10 mg PO PM 04/10/23 04/11/25 potassium chloride 20 mEq 20 meq PO BID 04/10/23 04/11/25 tablet,extended release(part/cryst) primidone 250 mg tablet 250 mg PO HS 04/10/23 04/11/25 albuterol sulfate 90 mcg/actuation 2 puff inhalation Q4HP PRN 06/28/23 04/11/25 aerosol inhaler Shortness Of Breath aspirin 81 mg tablet,delayed 81 mg PO DAILY 06/28/23 04/11/25 release cetirizine 10 mg tablet 10 mg PO DAILY 06/28/23 04/11/25 colchicine 0.6 mg capsule 0.6 mg PO DAILY 06/28/23 04/11/25 (Mitigare) empagliflozin 25 mg tablet 25 mg PO DAILY 06/28/23 04/11/25 (Jardiance) rosuvastatin 20 mg tablet 20 mg PO HS 06/28/23 04/11/25 ascorbic acid (vitamin C) 500 mg 500 mg PO DAILY 10/28/23 04/11/25 tablet (Vitamin C) omeprazole 40 mg capsule,delayed 40 mg PO DAILY 10/28/23 04/11/25 release belimumab 200 mg/mL subcutaneous 200 mg SQ DIRECTED 03/04/24 04/11/25 auto-injector (Benlysta) docusate sodium 100 mg capsule 100 mg PO BID 03/04/24 04/11/25 lidocaine 5 % topical patch 1 - 2 patch transdermal DAILY 03/04/24 04/11/25 famotidine 40 mg tablet mg PO 08/22/24 04/11/25 oxybutynin chloride 10 mg mg PO 08/22/24 04/11/25 tablet,extended release 24 hr pantoprazole 40 mg tablet,delayed mg PO 08/22/24 04/11/25 release Previous Rx's ?Medication ?Instructions ?Recorded magnesium oxide 400 mg (241.3 mg 400 mg PO DAILY 30 days #30 tabs 03/07/24 magnesium) tablet albuterol sulfate 90 mcg/actuation 1 inh inhalation Q6H PRN shortness 08/27/24 breath activated powder inhaler of breath or wheezing #1 ea azithromycin 250 mg tablet See Rx Instructions PO .COMPLEX #6 08/27/24 tabs lidocaine HCl 2 % mucosal solution 1 applic mucous membrane Q12H PRN 08/27/24 (Lidocaine Viscous) pain #100 mL bumetanide 1 mg tablet See Rx Instructions .Route 02/05/25 .COMPLEX #90 tabs metoclopramide HCl 5 mg tablet 5 mg PO BID #60 tabs 02/08/25 (Reglan) Allergies Allergy/AdvReac Type Severity Reaction Status Date / Time prochlorperazine Allergy Intermediate HALLUCINATI Verified 04/11/25 10:16 (PROCHLORPERAZINE) ONS oxycodone (OXYCODONE) Allergy Unknown HALLUCINATI Verified 04/11/25 10:16 ONS ibuprofen (IBUPROFEN) AdvReac Unknown PT HAS Verified 04/11/25 10:16 RENAL FAILURE PFSH <J Jaskaran Fine MD - Last Filed: 05/02/25 15:09> [facility] Disclaimer: The information contained in this section may have been updated after the patient was seen, as this information can be updated by other users. 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 Tinnitus SNHL (sensorineural hearing loss) mild to moderate SNHL bilaterally, per Audiometric Chronic eustachian tube dysfunction CAD in [place] artery Syncope Bilateral carotid artery disease Lymphedema Angina pectoris History of COVID-19 COPD (chronic obstructive pulmonary disease) Systemic lupus Hypothyroid Difficulty swallowing Unstable angina Cataract Renal disease PVD (peripheral vascular disease) Palpitations HTN (hypertension), benign Heart murmur HLD (hyperlipidemia) GERD (gastroesophageal reflux disease) DVT (deep venous thrombosis) Peripheral arterial disease Right carotid bruit Carotid bruit Edema Diastolic dysfunction HHD (hypertensive heart disease) Surgical History History of colonoscopy H/O tubal ligation H/O rotator cuff surgery History of back surgery Cataract extraction status, right eye Family History Other Alcoholism Anemia Cancer Coronary artery disease FHx: mental illness Heart attack Hyperlipidemia Hypertension Kidney disease Substance abuse Tuberculosis 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 Smoking Status: Never smoker alcohol intake: former substance use type: denies use current occupational status: retired and disabled Travel in the last 8 weeks?: None household members: children current occupational exposures/hazards: No Have you lived/traveled outside [place] in past 30 days?: No Contact w/someone who lives/traveled outside US past 30 days?: No Exposure to someone with infectious disease in past 14 days?: No Do you have a fever (greater than 100.4 F or 38 C)?: No Have you tested positive for COVID-19?: No Exposed to someone with COVID-19 in past 14 days?: No Do you have a sore throat?: No Do you have a cough?: No Do you have any weakness?: No Do you have any diarrhea?: No Are you experiencing any unusual bleeding?: No Do you have any muscle aches/pain?: No Do you have any abdominal pain?: No Are you experiencing loss of taste or smell?: No Other 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 Have you received the Flu Vaccine for this season: No Have you received the Pneumonia Vaccine: Yes <Robert Fine MD - Last Filed: 05/02/25 15:09> ROS Obtained: Yes All systems reviewed & no additional complaints except as documented Physical Exam <Robert Fine MD - Last Filed: 05/02/25 15:09> General General appearance: alert, in no apparent distress and lethargic Respiratory Respiratory exam: Present normal lung sounds bilaterally; Absent respiratory distress Cardiovascular Cardiovascular exam: Present regular rate; Absent normal rhythm Neurological Exam Neurological exam: Present alert, oriented X3 and other (Patient is nonfocal but is very slow to respond speak and move); Absent CN II-XII intact Medical Decision Making <Robert Fine MD - Last Filed: 05/02/25 15:09> Medical Records Screening: Per USPSTF and CDC recommendations, given the prevalence of disease in our region, it is our hospital?s policy to screen for HIV and viral Hepatitis for all patients aged 18 and over and those with ongoing risk factors. [place] Inquiry Pt receiving controlled substance: No Vital Signs: 05/02/25 12:55 05/02/25 14:01 05/02/25 15:01 Temperature 98.1 F Temperature Source Oral Pulse Rate Pulse Rate [Right Brachial] 78 Respiratory Rate 20 10 L 10 L Blood Pressure 219/84 H 163/51 H Blood Pressure [Right Arm] 216/103 H Blood Pressure Mean [Right Arm] 140 Blood Pressure Source [Right Arm] Automatic Cuff Blood Pressure Position [Right Arm] Supine 02 Sat by Pulse Oximetry 98 82 L Oxygen Delivery Method Room Air 05/02/25 15:06 Temperature Temperature Source Pulse Rate 78 Pulse Rate [Right Brachial] Respiratory Rate 14 Blood Pressure 130/50 L Blood Pressure [Right Arm] Blood Pressure Mean [Right Arm] Blood Pressure Source [Right Arm] Blood Pressure Position [Right Arm] 02 Sat by Pulse Oximetry 97 Oxygen Delivery Method Lab Data Lab results reviewed: Yes I reviewed the patient's lab results. Lab Results 05/02/25 12:55: SARS-CoV-2 (PCR) Not detected, Influenza A Untype (PCR) Not detected, Influenza Type B (PCR) Not detected 05/02/25 13:23: WBC 7.1, RBC 4.83, Hgb 12.2, Hct 40.6, MCV 84.1, MCH 25.3 L, MCHC 30.0 L, RDW 17.4, Plt Count 277, MPV 10.3, Neut % (Auto) 65.0, Lymph % (Auto) 22.7, Price % (Auto) 9.6 H, Eos % (Auto) 2.0, Baso % (Auto) 0.4, Neut # (Auto) 4.6, Lymph # (Auto) 1.6, Price # (Auto) 0.7, Eos # (Auto) 0.1, Baso # (Auto) 0.0, Sodium 136, Potassium 4.8, Chloride 99, Carbon Dioxide 29, Anion Gap 12.8, BUN 27 H, Creatinine 1.30 H, Estimated Creat Clear 44, Estimated GFR 40 L, Est GFR ( Amer) 48 L, Glucose 100, Calcium 9.6, Total Bilirubin 0.5, AST 31, ALT 6 L, Alkaline Phosphatase 187 H, Ammonia < 9 L, Troponin I < 0.01, Total Protein 8.2, Albumin 4.6, Globulin 3.6 H, Albumin/Globulin Ratio 1.3 05/02/25 13:28: VBG pH 7.34, VBG pCO2 50.9, VBG pO2 42.6 H, VBG HCO3 26.5, VBG Total CO2 28.1 H, VBG O2 Saturation 74.7 H, VBG Base Excess 0.7, VBG Lactic Acid 1.4 05/02/25 13:44: Urine Color Yellow, Urine Appearance Clear, Urine pH 6.5, Ur Specific [place] <= 1.005, Urine Protein Negative, Urine Glucose (UA) 2+, Urine Ketones Negative, Urine Blood Negative, Urine Nitrate Negative, Urine Bilirubin Negative, Urine Urobilinogen 0.2, Ur Leukocyte Esterase Negative, Urine RBC None, Urine WBC Occasional, Ur Squamous Epith Cells Occasional, Urine Bacteria Trace 05/02/25 13:23 05/02/25 13:23 Orders (Tests/Meds): ED MEDICATIONS Discontinued Medications Generic Name Dose Route Start Last Admin Trade Name Freq PRN Reason Stop Dose Admin Acetaminophen 1,000 mg 05/02/25 15:08 05/02/25 15:10 Acetaminophen 500mg Tab PO 05/02/25 15:09 1,000 mg ONCE ONE Administration Lactated Ringer's 500 mls @ 999 mls/hr 08/13/25 13:15 05/02/25 13:43 Lactated Ringer's 1000 Ml Bag IV 05/02/25 13:45 999 mls/hr .Q31M HERBERT Administration Iopamidol 80 ml 05/02/25 14:37 05/02/25 14:44 Iopamidol-370 (76%);100ml Bottle IV 05/02/25 14:38 80 ml ONCE ONE Administration Sodium Chloride 50 ml 05/02/25 14:37 05/02/25 14:44 0.9 % Sodium Chloride 50 Ml Vial IV 05/02/25 14:38 50 ml ONCE ONE Administration Sodium Chloride 10 ml 05/02/25 14:37 05/02/25 14:44 Sodium Chloride 0.9% 10ml Syr (Rad Only) IV 05/02/25 14:38 10 ml ONCE ONE Administration ORDERS Category Date Time Status CT angio head Stat Cat Scan 05/02/25 13:[address] angio neck Stat Cat Scan 05/02/25 13:[address] head/brain wo con Stat Cat Scan 05/02/25 13:08 Completed CXR --portable [XR chest portable] Stat Exams 05/02/25 13:02 Completed Elbow XR right 2 views [XR elbow RT 2V] Stat Exams 05/02/25 14:36 Completed Ammonia Stat Lab 05/02/25 13:23 Completed CBC w/Auto Diff [Complete Blood Count Auto Diff] Stat Lab 05/02/25 13:23 Completed CMP [Comprehensive Metabolic Panel] Stat Lab 05/02/25 13:23 Completed Rapid PCR Covid and Flu A/B Stat Lab 05/02/25 12:55 Completed Trop I [Troponin I] Stat Lab 05/02/25 13:23 Completed Troponin I Q3H Lab 05/02/25 16:15 Ordered Troponin I Q3H Lab 05/02/25 19:15 Ordered UA [Urinalysis and Microscopic] Stat Lab 05/02/25 13:44 Completed Blood Culture Stat Micro 05/02/25 14:00 Received Venous Blood Gas Stat RT 05/02/25 13:28 Completed Medical Decision Narrative: Patient is a 79-year-old female with above history and physical. She is very slow cognitively at the moment speaking slowly and moving her extremities slowly but she has a nonfocal neurologic exam this is most likely not a stroke. She is significantly hypertensive she may have a hypertensive emergency or hypertensive encephalopathy versus press etc. Will not admit directly intervene on her hypertension until more workup is done. Metabolic and infectious etiologies are certainly possible as well. She started taking baclofen yesterday but only had 1 dose yesterday and the half-life of this is 2 to 4 hours unlikely that it is causing problems that are persistent at this point but that is certainly a possibility as well. Workup remains broad we will work her up for altered mental status this also will include CAT scans with angiography if possible I know she has chronic kidney disease we will do the scans if her GFR is greater than 30 and reassess Chest x-ray performed I personally interpreted shows no dense consolidation. The scan of the patient's head noncontrasted was performed which I personally interpreted I do not see any intracranial abnormalities CT and CTAs of the head and neck are pending. Patient did develop a headache and oral Tylenol has been administered. At 3:07 PM patient has dramatically improved her mental status seems to be back to normal her blood pressure is now down to 130 systolic it is possible that she had some transient hypertensive encephalopathy that is since resolved itself. Scans are pending I do not have any alternative explanation for her confusion at this point no obvious infectious etiology or significant metabolic abnormalities. Care will be transitioned to Dr. Pro Anglin at 3 PM for final disposition. <Pro Christine MD - Last Filed: 05/02/25 15:56> Vital Signs: 05/02/25 12:55 05/02/25 14:01 05/02/25 15:01 Temperature 98.1 F Temperature Source Oral Pulse Rate Pulse Rate [Right Brachial] 78 Respiratory Rate 20 10 L 10 L Blood Pressure 219/84 H 163/51 H Blood Pressure [Right Arm] 216/103 H Blood Pressure Mean [Right Arm] 140 Blood Pressure Source [Right Arm] Automatic Cuff Blood Pressure Position [Right Arm] Supine 02 Sat by Pulse Oximetry 98 82 L Oxygen Delivery Method Room Air 05/02/25 15:06 Temperature Temperature Source Pulse Rate 78 Pulse Rate [Right Brachial] Respiratory Rate 14 Blood Pressure 130/50 L Blood Pressure [Right Arm] Blood Pressure Mean [Right Arm] Blood Pressure Source [Right Arm] Blood Pressure Position [Right Arm] 02 Sat by Pulse Oximetry 97 Oxygen Delivery Method Lab Data Lab Results 05/02/25 12:55: SARS-CoV-2 (PCR) Not detected, Influenza A Untype (PCR) Not detected, Influenza Type B (PCR) Not detected 05/02/25 13:23: WBC 7.1, RBC 4.83, Hgb 12.2, Hct 40.6, MCV 84.1, MCH 25.3 L, MCHC 30.0 L, RDW 17.4, Plt Count 277, MPV 10.3, Neut % (Auto) 65.0, Lymph % (Auto) 22.7, Price % (Auto) 9.6 H, Eos % (Auto) 2.0, Baso % (Auto) 0.4, Neut # (Auto) 4.6, Lymph # (Auto) 1.6, Price # (Auto) 0.7, Eos # (Auto) 0.1, Baso # (Auto) 0.0, Sodium 136, Potassium 4.8, Chloride 99, Carbon Dioxide 29, Anion Gap 12.8, BUN 27 H, Creatinine 1.30 H, Estimated Creat Clear 44, Estimated GFR 40 L, Est GFR ( Amer) 48 L, Glucose 100, Calcium 9.6, Total Bilirubin 0.5, AST 31, ALT 6 L, Alkaline Phosphatase 187 H, Ammonia < 9 L, Troponin I < 0.01, Total Protein 8.2, Albumin 4.6, Globulin 3.6 H, Albumin/Globulin Ratio 1.3 05/02/25 13:28: VBG pH 7.34, VBG pCO2 50.9, VBG pO2 42.6 H, VBG HCO3 26.5, VBG Total CO2 28.1 H, VBG O2 Saturation 74.7 H, VBG Base Excess 0.7, VBG Lactic Acid 1.4 05/02/25 13:44: Urine Color Yellow, Urine Appearance Clear, Urine pH 6.5, Ur Specific [place] <= 1.005, Urine Protein Negative, Urine Glucose (UA) 2+, Urine Ketones Negative, Urine Blood Negative, Urine Nitrate Negative, Urine Bilirubin Negative, Urine Urobilinogen 0.2, Ur Leukocyte Esterase Negative, Urine RBC None, Urine WBC Occasional, Ur Squamous Epith Cells Occasional, Urine Bacteria Trace Orders (Tests/Meds): ED MEDICATIONS Discontinued Medications Generic Name Dose Route Start Last Admin Trade Name Freq PRN Reason Stop Dose Admin Acetaminophen 1,000 mg 05/02/25 15:08 05/02/25 15:10 Acetaminophen 500mg Tab PO 05/02/25 15:09 1,000 mg ONCE ONE Administration Lactated Ringer's 500 mls @ 999 mls/hr 05/02/25 13:15 05/02/25 13:43 Lactated Ringer's 1000 Ml Bag IV 05/02/25 13:45 999 mls/hr .Q31M HERBERT Administration Iopamidol 80 ml 05/02/25 14:37 05/02/25 14:44 Iopamidol-370 (76%);100ml Bottle IV 05/02/25 14:38 80 ml ONCE ONE Administration Sodium Chloride 50 ml 05/02/25 14:37 05/02/25 14:44 0.9 % Sodium Chloride 50 Ml Vial IV 05/02/25 14:38 50 ml ONCE ONE Administration Sodium Chloride 10 ml 05/02/25 14:37 05/02/25 14:44 Sodium Chloride 0.9% 10ml Syr (Rad Only) IV 05/02/25 14:38 10 ml ONCE ONE Administration ORDERS Category Date Time Status CT angio head Stat Cat Scan 05/02/25 13:[address] angio neck Stat Cat Scan 05/02/25 13:[address] head/brain wo con Stat Cat Scan 05/02/25 13:08 Completed CXR --portable [XR chest portable] Stat Exams 05/02/25 13:02 Completed Elbow XR right 2 views [XR elbow RT 2V] Stat Exams 05/02/25 14:36 Completed Ammonia Stat Lab 05/02/25 13:23 Completed CBC w/Auto Diff [Complete Blood Count Auto Diff] Stat Lab 05/02/25 13:23 Completed CMP [Comprehensive Metabolic Panel] Stat Lab 05/02/25 13:23 Completed Rapid PCR Covid and Flu A/B Stat Lab 05/02/25 12:55 Completed Trop I [Troponin I] Stat Lab 05/02/25 13:23 Completed Troponin I Q3H Lab 05/02/25 16:15 Ordered Troponin I Q3H Lab 05/02/25 19:15 Ordered UA [Urinalysis and Microscopic] Stat Lab 05/02/25 13:44 Completed Blood Culture Stat Micro 05/02/25 14:00 Received Venous Blood Gas Stat RT 05/02/25 13:28 Completed Medical Decision Narrative: Patient is a 79-year-old female with above history and physical. She is very slow cognitively at the moment speaking slowly and moving her extremities slowly but she has a nonfocal neurologic exam this is most likely not a stroke. She is significantly hypertensive she may have a hypertensive emergency or hypertensive encephalopathy versus press etc. Will not admit directly intervene on her hypertension until more workup is done. Metabolic and infectious etiologies are certainly possible as well. She started taking baclofen yesterday but only had 1 dose yesterday and the half-life of this is 2 to 4 hours unlikely that it is causing problems that are persistent at this point but that is certainly a possibility as well. Workup remains broad we will work her up for altered mental status this also will include CAT scans with angiography if possible I know she has chronic kidney disease we will do the scans if her GFR is greater than 30 and reassess Chest x-ray performed I personally interpreted shows no dense consolidation. The scan of the patient's head noncontrasted was performed which I personally interpreted I do not see any intracranial abnormalities CT and CTAs of the head and neck are pending. Patient did develop a headache and oral Tylenol has been administered. At 3:07 PM patient has dramatically improved her mental status seems to be back to normal her blood pressure is now down to 130 systolic it is possible that she had some transient hypertensive encephalopathy that is since resolved itself. Scans are pending I do not have any alternative explanation for her confusion at this point no obvious infectious etiology or significant metabolic abnormalities. Care will be transitioned to Dr. Pro Anglin at 3 PM for final disposition. Pro Christine MD I assumed care of this patient at 1500 pending symptomatic improvement, CT imaging results. CT imaging was interpreted by me personally and showed no acute findings. See radiology report for details. Patient's BP had improved to the 130-150 systolic range. She was able to ambulate without dizziness with her walker, which is her baseline. Her son feels that she is back to her baseline and she feels comfortable going home. She has a national sales associate at [facility] and I encouraged her to follow up with them for tighter BP control. will also give referral to Dr. Yo's office. She is followed by Dr. Hazel, who I also encouraged her to follow with. She and her son felt comfortable with her going home. Return precautions were given, all questions were answered, she was then discharged in stable condition. Critical Care <Robert Fine MD - Last Filed: 05/02/25 15:09> Critical Care Time Critical Care Time: Yes Attestation: On 05/02/25, the high probability of a clinically significant, sudden or life threatening deterioration of the following system(s) required my full and direct attention, intervention and personal management. The time I documented below is in addition to time spent performing reported procedures but includes the following listed in this critical care notation. Total Time Total Critical Care Time: 35
[2025-05-02 13:15] LABS: Coronavirus 19, PCR Not Detected (NotDetected); Influenza A, PCR Not Detected (NotDetected); Influenza B, PCR Not Detected (NotDetected)
--- NOTE | 2025-05-02 13:21 | PC.NURSE ---
1316- section housekeeper at bedside for ultrasound IV and obtaining lab work.
[2025-05-02 13:36] LABS: Hematocrit 40.6 % (37.0-47.0); Hemoglobin 12.2 g/dL (12.2-16.2); Immature Granulocytes % 0.3 %; Mean Corpuscular HGB Conc 30.0 g/dL (31.8-35.4); Mean Corpuscular Hemoglobin 25.3 pg (27.0-31.2); Mean Corpuscular Volume 84.1 fl (81-99); Nucleated Red Blood Cells % 0 %; Platelet Count 277 K/mm3 (142-424); Red Blood Count 4.83 M/mm3 (4.20-5.40); Red Cell Distribution Width-SD 53.2 fL; White Blood Count 7.1 K/mm3 (4.8-10.8)
[2025-05-02 13:42] LABS: Lactate Venous 1.4 mmol/L (0.4-2.0); VBG HCO3 26.5 mmol/L (23-30); VBG PH 7.34 mmol/L (7.31-7.41); VBG PO2 42.6 mmol/L (28-40)
[2025-05-02] MEDS: LACTATED RINGERS 1000ML 500 ML 999 ML IV (13:43)
[2025-05-02 13:46] LABS: VBG PCO2 50.9 mmol/L (35-51)
[2025-05-02 13:46] LABS: Albumin Level 4.6 g/dl (3.5-5.0); Chloride 99 mmol/L (98-107); Potassium 4.8 mmoL/L (3.5-5.1); Sodium 136 mmol/L (136-145)
[2025-05-02 13:47] LABS: Microscopic, Urine URINE MICROSCOPIC (MICROSCOPIC)
[2025-05-02 13:49] LABS: Alanine Aminotransferase 6 U/L (12-78); Albumin/Globulin Ratio 1.3 (1.1-1.8); Alkaline Phosphatase 187 U/L (38-126); Anion Gap 12.8 mEq/L (5-15); Aspartate Amino Transferase 31 U/L (14-36); Bilirubin,Total 0.5 mg/dl (0.2-1.3); Blood Urea Nitrogen 27 mg/dl (7-17); Carbon Dioxide 29 mmol/L (22.0-30.0); Creatinine Clearance Estimated 44 mL/min (50-200); Creatinine,Serum 1.30 mg/dl (0.52-1.04); Estimated Glomerular Filt Rate 40 ml/min (>60); GFR (African American) 48 ML/MIN (>60); Globulin 3.6 g/dL (1.3-3.2); Total Protein,Serum 8.2 g/dl (6.3-8.2)
--- NOTE | 2025-05-02 13:49 | PC.NURSE ---
MD at bedside speaking to family.
--- NOTE | 2025-05-02 13:49 | PC.NURSE ---
1323- first set of blood cultures drawn from US IV due to patien being an extremely difficult stick.
[2025-05-02 13:50] LABS: Ammonia < 9 umol/L (9-30); Calcium 9.6 mg/dl (8.4-10.2); Glucose 100 mg/dl (74-100)
[2025-05-02 13:51] LABS: Bilirubin,Urine Negative (Negative); Color,Urine YELLOW (Yellow); Glucose,Urine (UA) 2+ (Negative); Ketones,Urine Negative (Negative); Leukocyte Esterase,Urine Negative (Negative); PH,Urine 6.5 (5.0-8.5); Protein,Urine Negative (Negative); Specific Gravity, Urine <= 1.005 (1.005-1.030); Urobilinogen,Urine 0.2 EU/dl (0.2)
[2025-05-02 14:01] VITALS: BP 219/84; RESP 10; O2SAT 82
--- NOTE | 2025-05-02 14:01 | PC.NURSE ---
1400- second set of blood cultures drawn out of ultrasound IV placed by cigar tobacco processing supervisor. hub was scrubbed for 30 seconds prior to draw.
[2025-05-02 14:11] LABS: Bacteria,Urine Trace /lpf; Squamous Epithelial Cell,Urine Occasional #/hpf (0-5); WBC,Urine Occasional #/hpf (0-3)
[2025-05-02 14:19] LABS: Troponin I < 0.01 ng/ml (0.00-0.034)
--- NOTE | 2025-05-02 14:30 | PC.NURSE ---
Pt had urine output of 1000cc @14:30
--- NOTE | 2025-05-02 14:35 | PC.NURSE ---
1425- patient to radiology for scans
--- NOTE | 2025-05-02 14:36 | XR_ITS ---
FINAL REPORT CLINICAL HISTORY: pain COMPARISON: None FINDINGS: 2 views of the right elbow were obtained. There is no acute fracture or dislocation. There are mild degenerative changes. Mild soft tissue swelling is seen overlying the olecranon. IMPRESSION: No acute bony abnormality. Reviewed, Interpreted and Dictated by Ibeth Schultz MD Transcribed by Estrella Novak Authenticated and [facility]
[2025-05-02] MEDS: IOPAMIDOL-370 (76%);100ML BOTTLE 80 ML IV (14:44)
[2025-05-02] MEDS: SODIUM CHLORIDE 0.9% 10ML SYR (RAD ONLY) 10 ML IV (14:44)
[2025-05-02] MEDS: 0.9 % SODIUM CHLORIDE 50 ML VIAL IV (14:44)
[2025-05-02 15:01] VITALS: BP 163/51; RESP 10
[2025-05-02 15:06] VITALS: BP 130/50; PULSE 78; RESP 14; O2SAT 97
[2025-05-02] MEDS: ACETAMINOPHEN 500MG TAB 1000 MG PO (15:10)
--- NOTE | 2025-05-02 15:33 | PC.NURSE ---
MD at bedside discussing plan of care
[2025-05-02 15:57] VITALS: BP 130/50; PULSE 78; RESP 18; TEMP 36.9; O2SAT 97
== END 2025-05-02 16:00 | disposition home or self-care (01) ==
PROVIDERS: Emergency Provider Student in an Organized Health Care Education/Training Program
DX: G93.49 Other encephalopathy (principal); I10 Essential (primary) hypertension; R41.82 Altered mental status, unspecified
CPT/HCPCS: 70450; 70496; 70498; 71045; 73070; 80053; 81001; 82140; 82803; 84484; 85025; 87040; 87636; 93005; 99285; J7120; Q9967

== ENCOUNTER 2025-05-10 14:17 | Outpatient (CLI) | payer MEDICARE, MEDICAID, SELFPAY ==
--- OUTSIDE RECORDS SUMMARY | 2019-04-21 10:36 | XMS_ITS | Encounter Summary ---
Author Organization [facility] ystem Address [address] [place] [id number] Care Team Providers Care Wiring Inspector Name Role Phone Adrián Frost MD Primary Care Provider [phone] Encounter Details Date Type Department Care Team (Late st Contact Info) Description 04/21/2019 10:36 AM EDT Hospital Encounter [facility] PULMONARY [facility] CRITICAL CARE MEDICINE [address] [place] [address] 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 Tobacco Use Types [...] or training? Not on file Preferred Language Gambian 12/08/2024 Comments No Sex and Gender Information [...] 12:49 PM EDT Zohra Heard RN * [place] Suicide Severity Rating Scale (Screener/Recent Self-Report) Question Answer Date of Assessment Author 6. Suicidal Behavior (Lifetime) No 12:49 PM EDT Zohra Arzola RN documented as of this encounter Plan of Treatment Upcoming Encounters Date Type Department Care Team (Late st Contact Info) Description 07/10/2025 10:30 AM EDT Office Visit [facility] PULMONARY & CRITICAL CARE MEDICINE [address] [place] [address] Winnie Laura APRN [address] [place] [address] 03/04/2026 10:45 AM EDT Office Visit [facility] CARDIOLOGY [address] [place] [address] Jerson Underwood MD [address] [facility] [address] [place] [address] 05/01/2026 11:00 AM EDT Office Visit [facility] CARDIOTHORACIC SURGERY [address] [place] [phone] Radha Lowry, RECEIVING ASSOCIATE STORE [address] [place] [address] documented as of this encounter Procedures Procedure [...] documented as of this encounter Care Teams Wiring Inspector Relationship Specialty Start Date End Date Adrián Frost MD [address] [place] [address] PCP - General Family Medicine 04/12/19 10/29/19 documented as of this encounter
--- OUTSIDE RECORDS SUMMARY | 2023-05-19 09:46 | XMS_ITS | Encounter Summary ---
Author Organization [facility] ystem Address [address] [place] [address] Care Team Providers Care Healthcare Insurance Sales Agent Name Role Phone Miller Hazel MD Primary Care Provider [phone] Encounter Details Date Type Department Care Team (Late st Contact Info) Description 05/19/2023 9:46 AM EDT Hospital Encounter [facility] PULMONARY & CRITICAL CARE MEDICINE [address] [place] [address] 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 Tobacco Use Types [...] or training? Not on file Preferred Language Swiss 12/08/2024 Comments No Sex and Gender Information [...] 12:49 PM EDT Zohra Heard RN * [place] Suicide Severity Rating Scale (Screener/Recent Self-Report) Question Answer Date of Assessment Author 6. Suicidal Behavior (Lifetime) No 12:49 PM EDT Zohra Arzola RN documented as of this encounter Plan of Treatment Upcoming Encounters Date Type Department Care Team (Late st Contact Info) Description 07/10/2025 10:30 AM EDT Office Visit [facility] PULMONARY & CRITICAL CARE MEDICINE [address] [facility] [address] [place] [phone] Winnie Laura APRN [address] [place] [address] 03/04/2026 10:45 AM EDT Office Visit [facility] CARDIOLOGY [address] [place] [address] Jerson Underwood MD [address] [facility] [address] [place] [address] 05/01/2026 11:00 AM EDT Office Visit [facility] CARDIOTHORACIC SURGERY [address] [facility] [address] [place] [phone] Radha Lowry, SOFTWARE VERIFICATION ENGINEER [address] [facility] [address] [place] [address] documented as of this encounter Procedures Procedure [...] MD 05/19/2023 3:21 PM EDT Workstation ID: [id number] Narrative 05/19/2023 3:21 PM EDT XR CHEST [...] MD 05/19/2023 3:21 PM EDT Workstation ID: [id number] Winnie Laura APRN IMG DIAGNOSTIC IMAGING ORD ERABLES Final Result documented in this encounter Visit Diagnoses Not on filedocumented in this encounter Care Teams Healthcare Insurance Sales Agent Relationship Specialty Start Date End Date Miller Hazel MD [facility] [place] [facility] [address] [place] [address] PCP - General Adolescent Medicine 10/30/19 documented as of this encounter
--- OUTSIDE RECORDS SUMMARY | 2025-05-01 11:00 | XMS_ITS | Encounter Summary ---
Author Organization [facility] ystem Address [address] [place] [address] Care Team Providers Care Parking Officer Name Role Phone Miller Hazel MD Primary Care Provider [phone] Reason for Visit * Reason Comments Carotid Artery Disease 1 year follow up with carotid duplex Encounter Details Date Type Department Care Team (Late st Contact Info) Description 05/01/2025 11:00 AM EDT Office Visit [facility] CARDIOTHORACIC SURGERY [address] [address] Radha Lowry, PHP [employer] DEVELOPER [address] [place] [address] Stenosis of left carotid artery (Primary Dx) 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 Tobacco Use Types Packs/Day Years [...] 11/19 Potentially Unsafe Housing Conditions Not on loivia e 12/15/2024 Disabilities Answer Date Recorded Difficulty Concentrating, Remembering or Making Decisions no 12/14/2024 Difficulty Managing Errands Independently no 12/14/2024 Education Answer Date Recorded Help with school or training? 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 Not on file Not on file Not on olivia e documented as of this encounter Last Filed Vital Signs Vital Sign Reading Time Taken Comments Blood Pressure 120/60 05/01/2025 11:13 AM EDT Pulse 74 05/01/2025 11:12 AM EDT Temperature 36.6 C (97.9 F) 05/01/2025 11:12 AM EDT Respiratory Rate - - Oxygen Saturation 97% 05/01/2025 11:12 AM EDT Inhaled Oxygen Concentration - - Weight 92.8 kg (204 lb 9.6 oz) 05/01/2025 11:12 AM EDT Height 154.9 cm (5' 1 ) 05/01/2025 11:12 AM EDT Body Mass Index 38.66 05/01/2025 11:12 AM EDT documented in this encounter Progress Notes * Radha Lowry APRN - 05/01/2025 11:00 AM EDT Images from the original note were not included. [facility] Cardiothoracic Surgery Office Follow Up Note Date of Encounter: 05/01/2025 Name: Yoko Jl Jerez : 1945 Referred By: No ref. provider found PCP: Miller Hazel MD Chief Complaint: Chief Complaint Patient presents with Carotid Artery Disease 1 year follow up with carotid duplex Subjective History of Present Illness: Yoko Jerez is a 79 y.o. female former smoker with history of Parkinson's, Lupus, COPD, JOSS, HTN, HLD on statin therapy, CKD III, DVT, pulmonary hypertension, CAD s/p PCI, HFrEF, and carotid stenosis being followed by Dr Pena since 2022. She underwent diagnostic carotid angiogram 03/[address] King with borderline hemodynamically significant stenosis to left common carotid at the bifurcation (60%). Dr Pena recommended medical management and surveillance. She presents today for her annual surveillance. Pt denies hx of TIA or CVA since last visit, has had no new focal neurologic dysfunction, specifically vision changes or amaurosis fugax. 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 Her previous dizziness with rapid head movements resolves with meclizine. She recently underwent right knee replacement and has completed her physical therapy. She continues to be followed by terra cotta roofer Dr Underwood. Review of Systems: Review of Systems Constitutional: Negative for chills, decreased appetite, diaphoresis, fever, malaise/fatigue, nightsweats, weight gain and weight loss. HENT: Negative for hoarse voice. Eyes: Negative for blurred vision, double vision and visual disturbance. Cardiovascular: Negative for chest pain, claudication, dyspnea on exertion, irregular heartbeat, leg swelling, near-syncope, orthopnea, palpitations, paroxysmal nocturnal dyspnea and syncope. Respiratory: Negative for cough, hemoptysis, shortness of breath, sputum production and wheezing. Hematologic/Lymphatic: Negative for adenopathy and bleeding problem. Does not bruise/bleed easily. Skin: Negative for color change, nail changes, poor wound healing and rash. Musculoskeletal: Negative for back pain, falls and muscle cramps. Gastrointestinal: Negative for abdominal pain, dysphagia and heartburn. Genitourinary: Negative for flank pain. Neurological: Negative for brief paralysis, disturbances in coordination, dizziness, focal weakness, headaches, light-headedness, loss of balance, numbness, paresthesias, sensory change, vertigo and weakness. Psychiatric/Behavioral: Negative for depression and suicidal ideas. Allergic/Immunologic: Negative for persistent infections. I have reviewed the following portions of the patient's history: problem list, current medications,allergies, past surgical history, past medical history, past social history, past family history, and ROS and confirm it's accurate. Allergies: Allergies Allergen Reactions Metolazone Angioedema Tolerated chlorthalidone Prochlorperazine Edisylate Other (See Comments) Seizures (Compazine) Oxycodone-Acetaminophen Hallucinations Prochlorperazine Seizure prochlorperazine Aspirin Other (See Comments) Renal issues 325MG ONLY Ibuprofen Unknown - Low Severity KIDNEY ISSUES Medications: Current Outpatient Medications: albuterol sulfate HFA 108 (90 Base) MCG/ACT inhaler, Inhale 2 puffs Every 4 (Four) Hours As Needed for Wheezing., Disp: 18 g, Rfl: 4 allopurinol (ZYLOPRIM) 100 MG tablet, Take 1 tablet by mouth Every Night., Disp: , Rfl: aspirin 81 MG EC tablet, Take 1 tablet by mouth Every 12 (Twelve) Hours. Indications: VTE Prophylaxis, Disp: 60 tablet, Rfl: 0 Benlysta 200 MG/ML solution auto-injector, , Disp: , Rfl: bumetanide (BUMEX) 1 MG tablet, TAKE ONE TABLET BY MOUTH EVERY DAY, Disp: 30 tablet, Rfl: 3 buPROPion (WELLBUTRIN) 100 MG tablet, Take 1 tablet by mouth 2 (Two) Times a Day., Disp: , Rfl: carbidopa-levodopa (SINEMET) 25-100 MG per tablet, Take 1 tablet by mouth Daily With Breakfast & Dinner., Disp: , Rfl: carvedilol (COREG) 6.25 MG tablet, Take 1 tablet by mouth 2 (Two) Times a Day With Meals., Disp: , Rfl: cetirizine (zyrTEC) 10 MG tablet, Take 1 tablet by mouth Daily., Disp: , Rfl: Cholecalciferol 25 MCG (1000 UT) tablet, Take 1 tablet by mouth Daily., Disp: , Rfl: clopidogrel (PLAVIX) 75 MG tablet, Take 1 tablet by mouth Daily. LAST DOSE OF PLAVIX ON 12/07/24 Farooq Brewer, Disp: , Rfl: donepezil (ARICEPT) 10 MG tablet, Take 1 tablet by mouth Every Night., Disp: , Rfl: empagliflozin (Jardiance) 25 MG tablet tablet, TAKE ONE TABLET BY MOUTH EVERY DAY, Disp: 30 tablet,Rfl: 0 famotidine (Pepcid) 40 MG tablet, Take 1 tablet by mouth Daily., Disp: , Rfl: fluticasone (FLONASE) 50 MCG/ACT nasal spray, Administer 1 spray into the nostril(s) as directed byprovider 2 (Two) Times a Day., Disp: , Rfl: gabapentin (NEURONTIN) 300 MG capsule, Take 1 capsule by mouth 5 (Five) Times a Day., Disp: , Rfl: HYDROcodone-acetaminophen (NORCO) 7.5-325 MG per tablet, Take 1 tablet by mouth Every 4 (Four) Hours As Needed for Moderate Pain., Disp: 30 tablet, Rfl: 0 lidocaine (LIDODERM) 5 %, Place 1 patch on the skin as directed by provider Daily., Disp: , Rfl: meclizine (ANTIVERT) 25 MG tablet, 1 tablet Every 8 (Eight) Hours., Disp: , Rfl: memantine (NAMENDA) 10 MG tablet, Take 1 tablet by mouth 2 (Two) Times a Day., Disp: , Rfl: methIMAzole (TAPAZOLE) 5 MG tablet, Take 1 tablet by mouth Daily., Disp: , Rfl: metoclopramide (REGLAN) 5 MG tablet, TAKE ONE TABLET BY MOUTH TWICE DAILY 30 minutes BEFORE meals, Disp: , Rfl: Mitigare 0.6 MG capsule capsule, Take 1 capsule by mouth Daily., Disp: , Rfl: montelukast (SINGULAIR) 10 MG tablet, Take 1 tablet by mouth Every Night., Disp: , Rfl: multivitamin with minerals (MULTIVITAMIN ADULTS PO), Take 1 tablet by mouth Daily., Disp: , Rfl: oxybutynin XL (DITROPAN-XL) 10 MG 24 hr tablet, , Disp: , Rfl: pantoprazole (PROTONIX) 40 MG EC tablet, Take 1 tablet by mouth Daily., Disp: , Rfl: potassium chloride (K-DUR,KLOR-CON) 20 MEQ CR tablet, Take 1 tablet by mouth 2 (Two) Times a Day. Takes one extra tablet daily if experiencing cramps, Disp: , Rfl: predniSONE (DELTASONE) 5 MG tablet, Take 2 tablets by mouth Daily. snf, Disp: , Rfl: primidone (MYSOLINE) 250 MG tablet, Take 1 tablet by mouth 2 (Two) Times a Day., Disp: , Rfl: rosuvastatin (CRESTOR) 20 MG tablet, TAKE ONE TABLET BY MOUTH EVERY DAY, Disp: 90 tablet, Rfl: 3 simethicone (MYLICON) 80 MG chewable tablet, Chew 1 tablet Every 6 (Six) Hours As Needed for Flatulence., Disp: , Rfl: timolol (TIMOPTIC) 0.5 % ophthalmic solution, 1 drop 2 (Two) Times a Day., Disp: , Rfl: vitamin C (ASCORBIC ACID) 500 MG tablet, Take 1 tablet by mouth Daily., Disp: , Rfl: Zinc Sulfate (ZINC 15 PO), Take 1 tablet by mouth Daily., Disp: , Rfl: History: Past 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: Diagnosis Date Abnormal ECG 2021 Anxiety 1989 Arthritis 1979 Asthma 1999 Clostridioides difficile infection 2020 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 COPD (chronic obstructive pulmonary disease) 2017 Coronary artery disease 2023 COVID 2020 Depression 1989 Disease of thyroid gland 1999 GERD (gastroesophageal reflux disease) 1999 Heart & renal disease, hypertensive benign with chronic kidney disease Heart murmur Heart valve disease 1999 Hiatal hernia History of transfusion 2017 NO REACTION Hyperlipidemia 2022 Hypertension 1979 Kidney abnormality of fetus on ultrasound Lupus Parkinson's disease 2019 Polio Pulmonary arterial hypertension 2019 Sleep apnea 1989 NON COMPLIANT WITH CPAP Wears glasses Past Surgical History: Procedure Laterality Date CARDIAC CATHETERIZATION N/A 05/12/2023 Procedure: Right Heart Cath; Surgeon: Jerson Underwood MD; Location: [facility]; Service: Cardiology; Laterality: N/A; CAROTID STENT 2021 COLONOSCOPY CORONARY STENT PLACEMENT 08/2022 x2 INTERVENTIONAL RADIOLOGY PROCEDURE Left 03/29/2023 Procedure: Carotid Cerebral Angiogram; Surgeon: Ac King MD; Location[facility]; Service: Interventional Radiology; Laterality: Left; LUMBAR FUSION OVARIAN CYST SURGERY ROTATOR CUFF REPAIR Right THORACIC FUSION TOTAL KNEE ARTHROPLASTY Left 02/17/2024 Procedure: TOTAL KNEE ARTHROPLASTY WITH CORI ROBOT - LEFT; Surgeon: Naseem Brewer MD; Location: [facility]; Service: Robotics - Ortho; Laterality: Left; TOTAL KNEE ARTHROPLASTY Right 12/14/2024 Procedure: TOTAL KNEE ARTHROPLASTY WITH CORI ROBOT RIGHT; Surgeon: Naseem Brewer MD; Location: [facility]; Service: Robotics - Ortho; Laterality: Right; TOTAL SHOULDER ARTHROPLASTY W/ DISTAL CLAVICLE EXCISION Right 08/10/2023 Procedure: REVERSE TOTAL SHOULDER ARTHROPLASTY WITH BICEPS TENODESIS - RIGHT; Surgeon: Jaskaran Simpson Jr., MD; Location: [facility]; Service: Orthopedics; Laterality: Right; TUBAL ABDOMINAL LIGATION 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 Socioeconomic History Marital status: Number of children: 3 Tobacco Use Smoking status: Former Current packs/day: 0.00 Average packs/day: 0.5 packs/day for 20.0 years (10.0 ttl pk-yrs) Types: Cigarettes Start date: 02/1971 Quit date: 02/1991 Years since quittin.2 Passive exposure: Past Smokeless tobacco: Never Vaping Use Vaping status: Never Used Substance and Sexual Activity Alcohol use: Not Currently Drug use: Never Sexual activity: Defer Partners: Male control/protection: Tubal ligation Family History Problem Relation Age of Onset Hypertension Mother Kidney disease Mother Alcohol abuse Mother Hypertension Father Suicidality Father Cancer Sister Heart disease Sister Arthritis Sister Stroke Sister Parkinsonism Sister Colon polyps Sister Cancer Sister Cholelithiasis Brother Breast cancer Niece Leukemia Niece Autoimmune disease Niece Stroke Sister Objective Physical Exam: Vitals: 05/01/25 1112 05/01/25 1113 BP: 124/58 120/60 BP Location: Right arm Left arm Patient Position: Sitting Sitting Pulse: 74 Temp: 97.9 ??F (36.6 ??C) SpO2: 97% Weight: 92.8 kg (204 lb 9.6 oz) Height: 154.9 cm (61 ) Body mass index is 38.66 kg/m??. Physical Exam Vitals and nursing note reviewed. Constitutional: Appearance: Normal appearance. Comments: wheelchair Neck: Vascular: Carotid bruit present. Comments: Loud left bruit Cardiovascular: Rate and Rhythm: Normal rate and regular rhythm. Heart sounds: Normal heart sounds, S1 normal and S2 normal. Pulmonary: Effort: Pulmonary effort is normal. Musculoskeletal: Right lower leg: Edema present. Left lower leg: Edema present. Skin: General: Skin is warm and dry. Neurological: Mental Status: She is alert and oriented to person, place, and time. Mental status is at baseline. Imaging/Labs: Duplex Carotid Ultrasound CAR (01/18/2025 15:53) Right internal carotid artery demonstrates a less than 50% stenosis. Antegrade right vertebral flow. Left internal carotid artery demonstrates a 50-69% stenosis. Antegrade left vertebral flow. Compared to the study performed in January 2024, there is no significant change. Duplex Carotid Ultrasound CAR (02/09/2024 11:14) Right internal carotid artery demonstrates a less than 50% stenosis. Left internal carotid artery demonstrates a 50-69% stenosis. Antegrade flow in the vertebral arteries bilaterally. Invasive peripheral vascular study (03/29/2023 11:26) Impression: Moderate-advanced plaque formation involving the distal left common carotid artery, at the common carotid bifurcation. This produces a borderline hemodynamically significant stenosis (approximately 60%) utilizing NASCET derived criteria. It is uncertain whether this represents a symptomatic lesion , and the patient will follow-up with Dr. Luis Miguel Pena to discuss further management of the left common carotid disease. Assessment / Plan Assessment / Plan: Diagnoses and all orders for this visit: 1. Stenosis of left carotid artery (Primary) being followed by Dr Pena since 2022 S/p carotid angiogram 03/[address] King with borderline hemodynamically significant stenosis to left common carotid at the bifurcation (60%) Dr Pena recommended medical management and surveillance Annual surveillance asymptomatic 01/2025 carotid duplex with no hemodynamically significant stenosis. DESHAWN less than 50%. LICA 50 to 69% stenosis. 2024 - PSV DESHAWN 147 cm/s. PSV LICA 212 cm/s. Antegrade flow to bilateral vertebrals 2023 -PSV DESHAWN 153 cm/s. PSV LICA 208 cm/s. Antegrade flow bilaterally Continue medical management. Compliant with DAPT and statin therapy. No longer smoking Annual surveillance Follow-up with Dr Underwood as previously determined Patient Education: The BE FAST acronym helps you remember the signs and symptoms of a stroke: Balance loss, Eyesight loss, Facial dropping, Arm weakness, Speech difficulty, and Time to call 911 Follow Up: Return in about 1 year (around 05/01/2026) for Imaging: Carotid duplex. Or sooner for any further concerns or worsening sign and symptoms. If unable to reach us in the office please dial 911 or go to the nearest emergency department. Radha Lowry APRN [facility] Cardi[facility] Time Spent: I spent 29 minutes caring for Yoko on this date of service. This time includes timespent by me in the following activities: preparing for the visit, reviewing tests, obtaining and/orreviewing a separately obtained history, performing a medically appropriate examination and/or evaluation, counseling and educating the patient/family/caregiver, ordering medications, tests, or proced ures, referring and communicating with other health laboratory animal caretaker, documenting information in the medical record, independently interpreting results and communicating that information with the patient/family/caregiver, and care coordination. documented in this encounter Plan of Treatment Upcoming Encounters Date Type Department Care Team (Late st Contact Info) Description 07/10/2025 10:30 AM EDT Office Visit [facility] PULMONARY & CRITICAL CARE MEDICINE [address] [facility] [address] [place] [address] Winnie Laura APRN [address] [place] [address] 03/04/2026 10:45 AM EDT Office Visit [facility] CARDIOLOGY [address] [facility] [address] [place] [phone] Jerson Underwood MD [address] [facility] [address] [place] [address] 05/01/2026 11:00 AM EDT Office Visit [facility] CARDIOTHORACIC SURGERY [address] [facility] [address] [place] [phone] Radha Lowry APRN [address] [facility] [address] [place] [address] documented as of this encounter Goals Goal Patient Goal Type Associated Problems Recent Progress Patient-Stated? Author Autogenera roni Goal Care Plan Autogenerated Problem No Wendie Gonzalez documented as of this encounter Visit Diagnoses Diagnosis Stenosis of left carotid artery- Primary Occlusion and stenosis of carotid artery without mention of cerebral infarction documented in this encounter Additional Health Concerns Active Problems Noted Date Diagnosed Date Autogenerated Problem 01/14/2025 documented as of this encounter Care Teams Parking Officer Relationship Specialty Start Date End Date Miller Hazel MD [address] [place] [facility] [address] [facility] [place] [address] PCP - General Adolescent Medicine 10/30/19 documented as of this encounter
--- NOTE | 2025-05-10 14:20 | US_ITS ---
PROCEDURE INFORMATION: Exam: US Left Breast, Complete Exam date and time: 05/10/2025 2:10 PM Age: 79 years old Clinical indication: Pain in the left breast. TECHNIQUE: Imaging protocol: Complete ultrasound of all four quadrants of the left breast and the retroareolar regions, including ultrasound of the axilla when performed. COMPARISON: US BREAST LT COMPLETE 01/03/2020 2:22 PM FINDINGS: ULTRASOUND: Breast ultrasound findings: In the left breast area of pain, upper-outer quadrant, there is no suspicious mass, shadowing, or distortion. Complete scanning of the left breast is performed in demonstrates no suspicious mass, shadowing, or distortion. There is no axillary adenopathy. IMPRESSION: No sonographic evidence of malignancy. Correlation with a mammogram is recommended unless there is a clinical contraindication. ASSESSMENT: BI-RADS Category 0: Incomplete- Need Additional Imaging Evaluation.
--- OUTSIDE RECORDS SUMMARY | 2025-05-10 14:28 | XMS_ITS | Clinical Summary ---
Author Organization [employer] ([place], [place], [place], [place]) Address [address] [place] [address] Care Team Providers Care Scholarship Counselor Name Role Phone Miller Hazel MD Primary Care Provider [phone] Allergies Active Allergy Reactions Criticality Noted Date [...] Date Arnaud rded Speak language other than Brazilian at home Not on file 10/01/2023 Want [...] Advance Directives For more information, please contact: [phone] * Full Code (Latest Code Status on File) Date Activated Date Inactivated Comments 06/30/2023 12:33 PM 07/06/2023 2:55 PM Care Teams Scholarship Counselor Relationship Specialty Start Date End Date Miller Hazel MD [address] [place] [address] PCP - General Adolescent Medicine 06/30/23
--- OUTSIDE RECORDS SUMMARY | 2025-05-10 14:28 | XMS_ITS | Encounter Summary ---
Author Organization [facility] Address [address] [place] [address] Care Team Providers Care Senior Administrative Associate Name Role Phone Miller Hazel MD Primary Care Provider [phone] Reason for Visit * Reason Onset Date Comments Med Refill 03/15/2025 Encounter Details Date Type Department Care Team (Late Contact Info) Description 03/15/2025 Refill [facility] [address] [place] [address] Annika Sheridan MD [address] [address] 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 Tobacco Use Types [...] Department Care Team (Late Contact Info) Description 05/23/2025 10:30 AM EDT Office Visit [facility] [address] [place] [address] Raymond Cano MD [address] [address] documented as of this encounter Visit Diagnoses Not on filedocumented in this encounter Additional Health Concerns Assessment Noted Time A fall risk assessment has been complete d for the patient 11/07/2024 11:20 AM EST A Body Mass Index follow-up plan has been documented for the patient 11/07/2024 12:26 PM EST documented as of this encounter Care Teams Senior Administrative Associate Relationship Specialty Start Date End Date Miller Hazel MD [address] [place] [address] PCP - General 08/04/21 documented as of this encounter
--- OUTSIDE RECORDS SUMMARY | 2025-05-10 14:28 | XMS_ITS | Encounter Summary ---
Author Organization [facility] Address [address] [place] [id number] Care Team Providers Care Competency Evaluated Nurse Aide Name Role Phone Miller Hazel MD Primary Care Provider [phone] Encounter Details Date Type Department Care Team [...] or training? Not on file Preferred Language Grenadian 12/08/2024 Comments No Sex and Gender Information [...] [facility] [address] [facility] [address] [place] [address] Winnie Laura, DIVING JUDGE [address] [place] [address] 03/04/2026 10:45 AM EDT Office Visit [facility] [address] [facility] [address] [place] [address] Jerson Underwood MD [address] [facility] [address] [place] [address] 05/01/2026 11:00 AM EDT Office Visit [facility] [address] [facility] [address] [place] [address] Radha Lowry, DIVING JUDGE [address] [facility] [address] [place] [address] documented as of this encounter Goals Goal Patient Goal Type Associated Problems Recent Progress Patient-Stated? Author Autogenera roni Goal Care Plan Autogenerated Problem No Wendie Gonzalez documented as of this encounter Visit Diagnoses Not on filedocumented in this encounter Additional Health Concerns Active Problems Noted Date Diagnosed Date Autogenerated Problem 01/14/2025 documented as of this encounter Care Teams Competency Evaluated Nurse Aide Relationship Specialty Start Date End Date Miller Hazel MD [address] [facility] [address] [facility] [address] [place] [id number] PCP - General Adolescent Medicine 10/30/19 documented as of this encounter
--- OUTSIDE RECORDS SUMMARY | 2025-05-10 14:28 | XMS_ITS | Encounter Summary ---
Author Organization [facility] Address [address] [place] [address] Care Team Providers Care Systems Support Officer Name Role Phone Miller Hazel MD Primary Care Provider [phone] Reason for Visit * Reason Onset Date Comments Med Refill 03/12/2025 Encounter Details Date Type Department Care Team (Late Contact Info) Description 03/12/2025 Refill [facility] [address] [place] [address] Annika Sheridan MD [address] [address] 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 Tobacco Use Types [...] Description 05/23/2025 10:30 AM EDT Office Visit [facility] [address] [place] [address] Raymond Cano MD [address] [address] documented as of this encounter Visit Diagnoses Not on filedocumented in this encounter Additional Health Concerns Assessment Noted Time A fall risk assessment has been complete d for the patient 11/07/2024 11:20 AM EST A Body Mass Index follow-up plan has been documented for the patient 11/07/2024 12:26 PM EST documented as of this encounter Care Teams Systems Support Officer Relationship Specialty Start Date End Date Miller Hazel MD [address] [place] [address] PCP - General 08/04/21 documented as of this encounter
--- OUTSIDE RECORDS SUMMARY | 2025-05-10 14:28 | XMS_ITS | Clinical Summary ---
Author Organization [facility] Address [address] [place] [address] Care Team Providers Care Catering Attendant Name Role Phone Miller Hazel MD Primary Care Provider [phone] Allergies Active Allergy Reactions Criticality Noted Date [...] FOR 12 HOURS 4 Active HYDROcodone-ann taminophen ([place]) 7.5-325 MG tablet TAKE ONE TABLET BY [...] (Symmetrel) 100 MG tablet Active nystatin (Mycostatin) 759316 UNIT/ML suspension Take 4 mL (400,000 Units) [...] Encounters Date Type Department Care Team Description 05/07/2025 Telephone [facility] [address] [place] [address] Annika Sheridan MD 03/15/2025 Refill [facility] [address] [place] [address] Annika Sheridan MD 03/12/2025 Refill [facility] [address] [place] [address] Annika Sheridan MD from Last 3 Months [...] Care Team (Late st Contact Info) Description 05/23/2025 10:30 AM EDT Office Visit [facility] [address] [place] [address] Raymond Cano MD [address] [address] Health Maintenance Due Date Last Done Comments [facility]-Bone Density Scan 1945 [facility]-Depression Screening 1945 [facility]-Hepatitis C Screening 1945 [facility]-Medicare Annual Wellness (AWV) 1945 [facility]-Infant/Child/Adol SDOH Screenings 1945 [facility]- SDOH Screenings 1965 [facility]-Adult SDOH Screenings 1965 [facility]-RSV Vaccine: 60+ Years or (1 - 1-dose 75+ series) 2022 [id number] Vaccine (11 - Moderna risk 2023- season) 2024 06/14/2024, 07/29/2023, 04/23/2022, Additional history exists [facility]-Influenza Vaccine (#1) 05/21/202506/20, 05/29/2024, 06/22/2023, Additional history exists [facility]-DTaP,Tdap,and Td Vaccines (2 - Td or Tdap) 07/29/2033 07/29/2023 [facility]-Zoster Vaccines Completed 05/09/2020, [facility]-Pneumococcal Vaccine: 50+ Years Completed 07/05/2023, 10/02/2019, [...] this topic Medical Devices Implanted Type Area Trimmer Buffing Wheel Device Identifier Shelf Expiration Date Model / Serial / Lot Lens [id number] - [id number] Implanted:Qty: 1 on 06/29/2022 by Annika Sheridan MD at [facility] Right: Eye [employer]-[id number] 01/06/2027 [id number] / [id number] / [id number] Insurance MEDICAID[place] MEDICARE Care Teams Catering Attendant Relationship Specialty Start Date End Date Miller Hazel MD [address] [place] [address] PCP - General 08/04/21
--- OUTSIDE RECORDS SUMMARY | 2025-05-10 14:28 | XMS_ITS | Clinical Summary ---
Author Organization [facility] Address [address] [place] [address] Phone Care Team Providers Care Housekeeping Supervisor Hotel Name Role Phone Jerry MEJIAS, Marilou Unavailable Unavailable Conditions or Problems Problem Name Problem Code Onset Date Status Entry Date Provider Comment Standard Description Annotate Kidney disease, chronic, stage II 864992733 (SNOMED CT) 03/06 Active 03/06 Bobo Vizcarra MD Chronic kidney disease stage 2 UTI, recurrent 109288347 (SNOMED CT) 03/06 Active 03/06 Bobo Vizcarra MD Recurrent urinary tract infection DIARRHEA, CHRONIC 000790948 (SNOMED CT) 06/17 Active 06/17 Bobo Vizcarra MD Chronic diarrhea SYSTEMIC LUPUS ERYTHEMATOSU S 84754994 (SNOMED CT) 06/17 Active 06/17 Bobo Vizcarra MD Systemic lupus erythematosus IMMUNOCOMPRO MISED 754373727 (SNOMED CT) 06/17 Active 06/17 Bobo Vizcarra MD Immunodeficienc y disorder RHEUMATOID ARTHRITIS 96292480 (SNOMED CT) 06/17 Active 06/17 Bobo Vizcarra MD Rheumatoid arthritis C. Difficile colitis, recurrent 28938255 (SNOMED CT) 03/05 Active 03/05 Martine Damir Enterocolitis DIARRHEA, CHRONIC 111523545 (SNOMED CT) 06/17 Resolved 06/17 Martine Damir Chronic diarrhea LEUKOPENIA 96818886 (SNOMED CT) 06/17 Resolved 06/17 Martine Damir Leukopenia RHEUMATOID ARTHRITIS 56538281 (SNOMED CT) 06/17 Resolved 06/17 Martine Damir Rheumatoid arthritis THROMBOCYTOP ENIA 776870955 (SNOMED CT) 06/17 Resolved 06/17 Martine Reich Thrombocytopeni c disorder SYSTEMIC LUPUS ERYTHEMATOSU S 32891763 (SNOMED CT) 06/17 Resolved 06/17 Martine Reich Systemic lupus erythematosus HEPATITIS 742134724 (SNOMED CT) 06/17 Resolved 06/17 Martine Reich Inflammatory disease of liver ANEMIA 678873249 (SNOMED CT) 06/17 Resolved 06/17 Martine Reich Anemia IMMUNOCOMPRO MISED 798461932 (SNOMED CT) 06/17 Resolved 06/17 Martine Reich Immunodeficienc y disorder SEPSIS SYNDROME A41.9 (ICD-10-CM ) 06/17 Resolved 06/17 Martine Reich Sepsis, unspecified organism THRUSH 66007146 (SNOMED CT) Resolved Martine Reich Candidiasis THRUSH 10225692 (SNOMED CT) Removed Jaskaran Estrada MD Candidiasis RHEUMATOID ARTHRITIS 49214328 (SNOMED CT) 06/17 Removed 06/17 Marilou Edwards RN Rheumatoid arthritis ANEMIA 471229830 (SNOMED CT) 06/17 Removed 06/17 Marilou Edwards RN Anemia THROMBOCYTOP ENIA 860382645 (SNOMED CT) 06/17 Removed 06/17 Marilou Edwards RN Thrombocytopeni c disorder LEUKOPENIA 96581880 (SNOMED CT) 06/17 Removed 06/17 Marilou Edwards RN Leukopenia SYSTEMIC LUPUS ERYTHEMATOSU S 35967023 (SNOMED CT) 06/17 Removed 06/17 Marilou Edwards RN Systemic lupus erythematosus DIARRHEA, CHRONIC 650757079 (SNOMED CT) 06/17 Removed 06/17 Marilou Edwards cat scanner operator diarrhea IMMUNOCOMPRO MISED 074482108 (SNOMED CT) 06/17 Removed 06/17 Marilou Edwards RN Immunodeficienc y disorder HEPATITIS 007239793 (SNOMED CT) 06/17 Removed 06/17 Marilou Edwards RN Inflammatory disease of liver SEPSIS SYNDROME A41.9 (ICD-10-CM ) 06/17 Removed 06/17 Marilou Edwards RN Sepsis, unspecified organism Medications Medication Instructions Start Date Stop Date Generic Name NDC Provider PREDNISONE 20 MG TABS twice a day prednisone 73457264008 Yasmine Levine LEFLUNOMIDE 20 MG TABS leflunomide 31135015469 [facility] [place] KLOR-CON 20 MEQ PACK potassium chloride 04605758621 [facility] [place] ZOLPIDEM TARTRATE 10 MG TABS zolpidem 09711537388 [facility] [place] DORZOLAMIDE HCL-TIMOLOL MAL 2-0.5 % SOLN dorzolamide-timol ol 30601757449 [facility] [place] LISINOPRIL-HYDROC HLOROTHIAZIDE 10-12.5 MG TABS lisinopril-hydroc hlorothiazide 58518276425 [facility] [place] IMODIUM A-D TABLET IMODIUM A-D TABLET [facility] [place] DIGOXIN 125 MCG TABS digoxin 47466540685 [facility] [place] BUPROPION HCL 75 MG TABS bupropion hcl 51754566760 [facility] [place] OMEPRAZOLE 20 MG TBEC omeprazole 83695496654 [facility] [place] DIAZEPAM 5 MG TABS diazepam 35489003668 [facility] [place] SIMVASTATIN 20 MG TABS simvastatin 08321083318 [facility] [place] MECLIZINE HCL 25 MG TABS meclizine 45863888334 [facility] [place] IMURAN 50 MG TABS azathioprine 93553159585 [facility] [place] LATANOPROST 0.005 % SOLN latanoprost 74905415748 [facility] [place] DEPAKOTE 500 MG TBEC divalproex 76195923165 [facility] [place] PRIMIDONE 250 MG TABS primidone 24033378830 [facility] [place] TRAMADOL HCL 50 MG TABS tramadol 60343804747 [place] [place] CYCLOBENZAPRINE HCL 5 MG TABS cyclobenzaprine 41969738791 [place] MITIGARE 0.6 MG CAPS colchicine 42374263539 Emil Elena METOCLOPRAMIDE HCL 10 MG TABS metoclopramide hcl 57896600868 Emil Elena CARBIDOPA-LEVODOP A 25-100 MG TABS carbidopa-levod op a 24984896851 Emil Fayette BUMETANIDE 1 MG TABS bumetanide 14632389001 Emil Fayette METHIMAZOLE 5 MG TABS methimazole 09201505487 Emil Fayette BUPROPION HCL 100 MG TABS bupropion hcl 79955111829 Emil Fayette CHLORTHALIDONE 25 MG TABS chlorthalidone 10671715231 Emil Fayette PREDNISONE 5 MG TABS 03/19 prednisone 93806330694 Emil Fayette DONEPEZIL HCL 10 MG TABS donepezil 00887305359 Emil Elena CITALOPRAM HYDROBROMIDE 10 MG TABS citalopram 53021488936 Emil Fayette AZELASTINE HCL 0.1 % SOLN azelastine 15551726163 Emil Fayette MONTELUKAST SODIUM 10 MG TABS montelukast 94935599576 Travi s Elena GABAPENTIN 300 MG CAPS gabapentin 81733244384 Emil Elena POTASSIUM CHLORIDE JONATHAN ER 20 MEQ CR-TABS potassium chloride 86976481805 Emil Elena TRAVOPROST (VALENTIN FREE) 0.004 % SOLN travoprost 19702795673 Emil Fayette CARVEDILOL 12.5 MG TABS carvedilol 35465843576 Emil Elena IMODIUM A-D TABS 03/06 LOPERAMIDE HCL TABS 53389071192 Jaskaran Estrada MD COLESTID 1 GM TABS COLESTIPOL HCL 07992742209 Jaskaran Estrada MD DOXYCYCLINE HYCLATE 100 MG CAPS DOXYCYCLINE HYCLATE 02681825739 Jaskaran Estrada MD FLAGYL 500 MG ORAL TABLET METRONIDAZOLE 32742523814 Jaskaran Estrada MD LEVAQUIN 500 MG ORAL TABLET Take 1 tablet by mouth daily LEVOFLOXACIN 01922709188 Jaskaran Estrada MD FLAGYL 500 MG ORAL TABLET Take one (1) tablet by mouth three times a day METRONIDAZOLE 70034569957 Jaskaran Estrada MD DOXYCYCLINE HYCLATE 100 MG CAPS Take one (1) tablet by mouth twice a day DOXYCYCLINE HYCLATE 15100387126 Jaskaran Estrada MD DEPAKOTE 500 MG TBEC 12/27 DIVALPROEX SODIUM 46614877207 Rachna Myers RN OMEPRAZOLE 20 MG TBEC 03/06 OMEPRAZOLE 48356762192 Rachna Myers RN CYCLOBENZAPRINE HCL 5 MG TABS 0 03/20 CYCLOBENZAPRINE HCL 83975222572 Rachna Myers RN DIAZEPAM 5 MG TABS 0 03/20 DIAZEPAM 96179877665 Rachna Myers RN DIGOXIN 125 MCG TABS 03/20 DIGOXIN 39828402933 Rachna Myers RN TRAMADOL HCL 50 MG TABS 03/06 TRAMADOL HCL 46465552585 Rachna Myers RN SIMVASTATIN 20 MG TABS 03/06 SIMVASTATIN 42726236854 Rachna Myers RN DORZOLAMIDE HCL-TIMOLOL MAL 2-0.5 % SOLN 03/06 DORZOLAMIDE HCL-TIMOLOL MAL 20154531294 Rachna Myers RN LISINOPRIL-HYDROC HLOROTHIAZIDE 10-12.5 MG TABS 03/06 LISINOPRIL-HYDROC HLOROTHIAZIDE 33897324996 Rachna Myers RN LATANOPROST 0.005 % SOLN 03/06 LATANOPROST 91276003592 Rachna Myers RN COLESTID 1 GM TABS COLESTIPOL HCL 00771205552 Rachna Myers RN DOXYCYCLINE HYCLATE 100 MG CAPS 12/26 DOXYCYCLINE HYCLATE 90969509495 Rachna Myers RN FLAGYL 500 MG ORAL TABLET 0 METRONIDAZOLE 18955745890 Rachna Myers RN PRIMIDONE 250 MG TABS 11/16 PRIMIDONE 87797386353 Rachna Myers RN BUPROPION HCL 75 MG TABS 03/20 BUPROPION HCL 10115866266 Rachna Myers RN KLOR-CON 20 MEQ PACK 03/06 POTASSIUM CHLORIDE 10239993035 Rachna Myers RN ZOLPIDEM TARTRATE 10 MG TABS 03/06 ZOLPIDEM TARTRATE 40555111916 Rachna Myers RN MECLIZINE HCL 25 MG TABS 03/06 MECLIZINE HCL 60602186969 Rachna Myers RN LEFLUNOMIDE 20 MG TABS 03/06 LEFLUNOMIDE 70206695509 Rachna Myers RN IMURAN 50 MG TABS 03/06 AZATHIOPRINE 96413336771 Rachna Myers RN LEVAQUIN 500 MG ORAL TABLET Take 1 tablet by mouth daily 12/19 LEVOFLOXACIN 56781969044 [facility] FLAGYL 500 MG ORAL TABLET Take one (1) tablet by mouth three times a day METRONIDAZOLE 00982671010 [facility] DOXYCYCLINE HYCLATE 100 MG CAPS Take one (1) tablet by mouth twice a day 12/26 DOXYCYCLINE HYCLATE 12020296310 [facility] Medications Administered No information available. 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
--- OUTSIDE RECORDS SUMMARY | 2025-05-10 14:28 | XMS_ITS | Encounter Summary ---
Author Organization [facility] Address [address] [place] [address] Care Team Providers Care Business Risk Analyst Name Role Phone Miller Hazel MD Primary Care Provider [phone] Reason for Visit * Reason Comments Med Refill Encounter Details Date Type Department Care Team (Late st Contact Info) Description 05/04/2025 Refill [facility] [address] [facility] [address] [place] [address] Jerson Underwood MD [address] [facility] [address] [place] [address] Med Refill 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 Tobacco Use Types [...] or training? Not on file Preferred Language Luxembourger 12/08/2024 Comments No Sex and Gender Information [...] Description 07/10/2025 10:30 AM EDT Office Visit [facility] & [facility]ITICAL CARE MEDICINE [address] [facility] [address] [place] [address] Winnie Laura, TALCER [address] [place] [address] 03/04/2026 10:45 AM EDT Office Visit [facility] [address] [facility] [address] [place] [address] Jerson Underwood MD [address] [facility] [address] [place] [address] 05/01/2026 11:00 AM EDT Office Visit [facility] SURGERY [address] [facility] [address] [place] [address] Radha Lowry, TALCER [address] [place] [address] documented as of this encounter Goals Goal Patient Goal Type Associated Problems Recent Progress Patient-Stated? Author Autogenera roni Goal Care Plan Autogenerated Problem No Wendie Gonzalez documented as of this encounter Visit Diagnoses Not on filedocumented in this encounter Additional Health Concerns Active Problems Noted Date Diagnosed Date Autogenerated Problem 01/14/2025 documented as of this encounter Care Teams Business Risk Analyst Relationship Specialty Start Date End Date Miller Hazel MD [address] [facility] [address] [place] [address] PCP - General Adolescent Medicine 10/30/19 documented as of this encounter
--- OUTSIDE RECORDS SUMMARY | 2025-05-10 14:29 | XMS_ITS | Referral Summary ---
Author Organization [employer] ([place], [place], [place], [place]) Address [address] [place] [address] Care Team Providers Care Steel Roller Name Role Phone Miller Hazel MD Primary Care Provider [phone] Allergies Active Allergy Reactions Criticality Noted Date [...] Date Arnaud rded Speak language other than Citizen Of [place] at home Not on file 10/01/2023 Want [...] Plan of Treatment Not on file Insurance [facility] MEDICARE PPO MEDICAID OF [place] Advance Directives For more information, please contact: [phone] * Full Code (Latest Code Status on File) Date Activated Date Inactivated Comments 06/30/2023 12:33 PM 07/06/2023 2:55 PM Care Teams Steel Roller Relationship Specialty Start Date End Date Miller Hazel MD [address] [place] [address] PCP - General Adolescent Medicine 06/30/23
--- OUTSIDE RECORDS SUMMARY | 2025-05-10 14:29 | XMS_ITS | Encounter Summary ---
[facility] Address [address] [place] [id number] Care Team Providers Care Home Economics Expert Name Role Phone Miller Hazel MD Primary Care Provider [phone] Reason for Visit * Reason Onset Date Comments BERNADINE-CARDIAC CLEARANCE 03/29/2025 Encounter Details Date Type Department Care Team (Late st Contact Info) Description 03/29/2025 Telephone [facility] CARDIOLOGY [address] [facility] [address] [place] [address] Jerson Underwood MD [address] [facility] [address] [place] [address] BERNADINE-CARDIAC CLEARANCE 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 Tobacco Use Types [...] or training? Not on file Preferred Language Czech 12/08/2024 Comments No Sex and Gender Information [...] Description 07/10/2025 10:30 AM EDT Office Visit [facility] PULMONARY & CRITICAL CARE MEDICINE [address] [place] [address] Winnie Laura, CORRECTIONAL OFFICER [address] [place] [address] 03/04/2026 10:45 AM EDT Office Visit [facility] CARDIOLOGY [address] [facility] [address] [place] [address] Jerson Underwood MD [address] [facility] [address] [place] [address] 05/01/2026 11:00 AM EDT Office Visit [facility] CARDIOTHORACIC SURGERY [address] [facility] [address] [place] [address] Radha Lowry, CORRECTIONAL OFFICER [address] [facility] [address] [place] [address] documented as of this encounter Goals Goal Patient Goal Type Associated Problems Recent Progress Patient-Stated? Author Autogenera roni Goal Care Plan Autogenerated Problem No Wendie Gonzalez documented as of this encounter Visit Diagnoses Not on filedocumented in this encounter Additional Health Concerns Active Problems Noted Date Diagnosed Date Autogenerated Problem 01/14/2025 documented as of this encounter Care Teams Home Economics Expert Relationship Specialty Start Date End Date Miller Hazel MD [address] [place] [facility] [address] [facility] [address] [place] [address] PCP - General Adolescent Medicine 10/30/19 documented as of this encounter
--- OUTSIDE RECORDS SUMMARY | 2025-05-10 14:29 | XMS_ITS | Encounter Summary ---
Author Organization Healthcare Address [address] [place] [address] Care Team Providers Care Tool And Die Manager Name Role Phone Miller Hazel MD Primary Care Provider [phone] Encounter Details Date Type Department Care Team (Late st Contact Info) Description 05/07/2025 Telephone [facility] [address] [place] [address] Annika Sheridan MD [address] [address] 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 Tobacco Use Types [...] on file documented as of this encounter Miscellaneous Notes * Telephone Encounter - Julia Soliman - 05/07/2025 2:09 PM EDT Same Day Appt/Overbook Request Reason for Call: PT cx 05/08 apt and now they are wanting to know if she has any avail slots for 05/08 Best contact number: [phone] (mobile) Optimal time of day to reach caller: ANYTIME Additional comments/information from caller: None Note: Please do not reply to this message. Follow-up communication and further actions as a result of this message need to be communicated with the patient directly, if the patient is not active onMyChart. If the patient is active on MyChart, they will receive notification of the communication/outcome via MyChart. documented in this encounter Plan of Treatment Upcoming Encounters Date Type Department Care Team (Late st Contact Info) Description 05/23/2025 10:30 AM EDT Office Visit [facility] [address] [facility] [place] [address] Raymond Cano MD 110 [facility] [address] [place] [address] documented as of this encounter Visit Diagnoses Not on filedocumented in this encounter Additional Health Concerns Assessment Noted Time A fall risk assessment has been complete d for the patient 11/07/2024 11:20 AM EST A Body Mass Index follow-up plan has been documented for the patient 11/07/2024 12:26 PM EST documented as of this encounter Care Teams Tool And Die Manager Relationship Specialty Start Date End Date Miller Hazel MD [address] [place] [address] PCP - General 08/04/21 documented as of this encounter
--- OUTSIDE RECORDS SUMMARY | 2025-05-10 14:29 | XMS_ITS ---
Author Organization [facility] Care Team Providers Care Key Punch Teacher Name Role Phone Marisela Del Cid) Unavailable Unavail able Miller Hazel Unavailable Unavailable Allergies and adverse reactions Code CodeSystem Substance Reaction Severity StartDate Concern Status 8704 RXNORM Prochlorperazine Unknown 08/22/2021 acti ve 7804 RXNORM Oxycodone Unknown 08/22/2021 active 5640 RXNORM Ibuprofen Unknown 08/22/2021 active Care Team Name Role Address Phone Organization Dates Miller Hazel PCP [address], [place], [address], [place] (Office): [facility] 08/22/2021 - 09/25/2021 Marisela Dozier) [place], [address], [place] (Office): : [facility] 08/22/2021 - 09/25/2021 Goals [...] skin test; unspecified formulation expiry: 12/12/2022 Mfg: SendRR Given 0.5 ml Left Forearm subcutaneously 98 [...] ACUTE ANGLE-CLOSURE GLAUCOMA, UNSPECIFIED EYE 08/22/2021 08/22/[address] completed 2 ANEMIA IN OTHER CHRONIC DISEASES CLASSIFIED ELSEWHERE 08/22/[address] active 3 ANEMIA, UNSPECIFIED 08/22/[address] active 4 CARDIAC MURMUR, UNSPECIFIED 08/22/[address] active 5 CHRONIC KIDNEY DISEASE, UNSPECIFIED 08/22/[address] active 6 DISORDER OF THYROID, UNSPECIFIED 08/22/[address] active 7 ELEVATED ERYTHROCYTE SEDIMENTATION RATE 08/22/[address] active 8 EPIGASTRIC PAIN 08/22/[address] ac tive 9 ESSENTIAL (PRIMARY) HYPERTENSION 08/22/[address] active 10 GASTRO-ESOPHAGEAL REFLUX DISEASE WITHOUT ESOPHAGITIS 08/22/[address] active 11 HYPERLIPIDEMIA, UNSPECIFIED 08/22/[address] active 12 HYPO-OSMOLALITY AND HYPONATREMIA 08/22/[address] active 13 MUSCLE WEAKNESS (GENERALIZED) 08/22/[address] active 14 OTHER REDUCED MOBILITY 08/22/[address] active 15 OTHER SPECIFIED ARTHRITIS, UNSPECIFIED SITE 08/22/[address] active 16 PAIN IN UNSPECIFIED JOINT 08/22/[address] active 17 PALPITATIONS 08/22/[address] activ e 18 PERIPHERAL VASCULAR DISEASE, UNSPECIFIED 08/22/[address] active 19 PROBLEM RELATED TO SOCIAL ENVIRONMENT, UNSPECIFIED 08/22/[address] active 20 SYSTEMIC LUPUS ERYTHEMATOSUS, UNSPECIFIED 08/22/[address] active 21 UNSPECIFIED DISORDER OF NOSE AND NASAL SINUSES 08/22/[address] active 22 UNSPECIFIED GLAUCOMA 08/22/[address] active 23 UNSTEADINESS ON FEET 08/22/[address] active 24 URINARY TRACT INFECTION, SITE NOT SPECIFIED 08/22/[address] active Reason for Referral No Reasons for Referral Entered 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 Observation Description Start Date End Date Code Code System Current Smoking Status Tobacco smoking consumption unknown 811754751 SNOMED CT Sex Assigned At Female 1945 30500-0 [facility] Gender Identity Vital Signs Code Code System Vitals Name Values and Units Timing Information 68303-9 [facility] Pain Level Value=2.0 09/25/2021 8310-5 [facility] Body Temperature Value=98.0 Units= F 09/25/2021 30645-5 [facility] O2 % BldC Oximetry Value=98.0 Units= % 09/25/2021 29053-0 LOINC Weight Lsktx=302.8 Units=Lbs 01/2022 8867-4 [facility] Heart rate Value=64.0 Units=/min 8462-4 [facility] Blood Pressure-Diastolic Value=48 Un its=mmHg 09/11/2021 8480-6 [facility] Blood Pressure-Systolic Jzqok=118 Un its=mmHg 09/11/2021 9279-1 [facility] Respiratory Rate Value=18.0 Units=/m in 09/10/2021 8302-2 [facility] Height Value=64.0 Units=Inches 08/22/2021
--- OUTSIDE RECORDS SUMMARY | 2025-05-10 14:29 | XMS_ITS | Encounter Summary ---
Author Organization [facility] Address [address] [place] [address] Care Team Providers Care Production Checker Name Role Phone Miller Hazel MD Primary Care Provider [phone] Reason for Visit * Reason Comments Med Refill Encounter Details Date Type Department Care Team (Late st Contact Info) Description 04/10/2025 Refill [facility] CARDIOLOGY [address] [facility] [address] [place] [address] Jerson Underwood MD [address] [facility] [address] [place] [address] Med Refill 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 Tobacco Use Types [...] or training? Not on file Preferred Language Citizen Of [place] 12/08/2024 Comments No Sex and Gender Information [...] Description 07/10/2025 10:30 AM EDT Office Visit [facility] PULMONARY & CRITICAL CARE MEDICINE [address] [facility] [address] [place] [address] Winnie Laura, HALL CLERK [address] [place] [address] 03/04/2026 10:45 AM EDT Office Visit [facility]ARDIOLOGY [address] [facility] [address] [place] [address] Jerson Underwood MD [address] [facility] [address] [address] [place] [address] 05/01/2026 11:00 AM EDT Office Visit [facility] CARDIOTHORACIC SURGERY [address] [facility] [address] [place] [address] Radha Lowry, HALL CLERK [address] [place] [address] documented as of this encounter Goals Goal Patient Goal Type Associated Problems Recent Progress Patient-Stated? Author Autogenera roni Goal Care Plan Autogenerated Problem No Wendie Gonzalez documented as of this encounter Visit Diagnoses Not on filedocumented in this encounter Additional Health Concerns Active Problems Noted Date Diagnosed Date Autogenerated Problem 01/14/2025 documented as of this encounter Care Teams Production Checker Relationship Specialty Start Date End Date Miller Hazel MD [address] [facility] [address] [place] [address] PCP - General Adolescent Medicine 10/30/19 documented as of this encounter
--- OUTSIDE RECORDS SUMMARY | 2025-05-10 14:29 | XMS_ITS | Clinical Summary ---
[facility] Address [address] [place] [id number] Care Team Providers Care Appraiser Boats And Marine Name Role Phone Miller Hazel MD Primary Care Provider [phone] Allergies Active Allergy Reactions Criticality Noted Date [...] tablet Take 2 tablets by mouth Daily. 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 07/20 Systemic lupus erythematosus 07/20/2015 Herniated lumbar intervertebral disc 07/03/2015 Spinal stenosis of lumbar region 07/03/2015 Low back pain 07/03/2015 Resolved Problems Problem Noted Date Diagnosed Date Resolved Date Pain in right knee 07/21/2015 Pain 07/20/2015 05/01/2025 Encounters Date Type Department Care Team Description 05/04/2025 Refill [facility] CARDIOLOGY [address] [facility] [address] [place] [address] Jerson Underwood MD Med Refill 05/01/2025 11:00 AM EDT Office Visit [facility] CARDIOTHORACIC SURGERY [address] [facility] [address] [place] [address] Radha Lowry APRN Stenosis of left carotid artery (Primary Dx) 05/01/2025 Travel 04/10/2025 Refill [facility] CARDIOLOGY [address] [place] [address] Jerson Underwood MD Med Refill 03/29/2025 Telephone [facility] CARDIOLOGY [address] [facility] [address] [place] [address] Jerson Underwood MD SHIH-CARDIAC CLEARANCE from Last 3 Months Immunizations Immunization Administration Dates Next Due COVID-19 (MODERNA) 1st,2nd,3 rd Dose Monovalent 12/18/2020,11/18/2020,10/30/2020 Flu Vaccine Quad PF >36MO 06/20/2018 Fluzone High-Dose 65+YRS 06/20/2024,090 05/2024,06/08/2022,2020,05/29/2020 Fluzone High-Dose 65+yrs 05/29/2024,06/22/2023 INFLUENZA SPLIT [...] Autoimmune disease Niece 2 Arthritis Sister 1 [place] Cancer Sister 1 [place] Heart disease Sister 1 [place] Stroke Sister 2 Symone sister Parkinsonism Sister 3 Colon polyps Sister 4 Cancer Sister 5 Stroke Sister 9 Scynara Relation Name Status Comments Brother 1 Brother 2 Alive Father Dez age 50 due to suicide Maternal Grandfather Maternal Grandmother Mother Annemarie Almaguer age 60 due to alcoholism Niece 1 Alive Niece 2 Alive Paternal Grandfather Paternal Grandmother Sister 1 [place] Sister 2 Symone sister Alive Sister 3 [...] Description 07/10/2025 10:30 AM EDT Office Visit [facility] PULMONARY & CRITICAL CARE MEDICINE [address] [facility] [address] [place] [address] Winnie Laura, FISCAL ACCOUNTANT [address] [place] [address] 03/04/2026 10:45 AM EDT Office Visit [facility] CARDIOLOGY [address] [facility] [address] [place] [address] Jerson Underwood MD [address] [facility] [address] [place] [address] 05/01/2026 11:00 AM EDT Office Visit [facility] CARDIOTHORACIC SURGERY [address] [facility] [address] [place] [address] Radha Lowry, FISCAL ACCOUNTANT [address] [facility] [address] [place] [address] Health Maintenance Due Date Last Done Comments HEPATITIS C SCREENING 04/14/2019 DXA SCAN 04/12/2021 04/12/2019, 03/21, 02/17/2017 ANNUAL WELLNESS VISIT 09/18/2022 09/18/2021, 018 RSV Vaccine - Adults (1 - 1- dose 75+ series) 2022 LIPID PANEL 05/12/2024 05/12/2023, 0709/2022, 08/25/2022, Additional history exists COVID-19 Vaccine (6 - 2023-2 5 season) 2024 07/29/2023, 04/23/2022, 12/18/2020, Additional [...] Care Plan Autogenerated Problem No Wendie Gonzalez [employer] Implanted Type Area Employment Specialist/Program Manager Device Identifier Shelf Expiration Date Model / Serial / Lot Winston Inhance Pls/4 32mm - [id number] Implanted:Q ty: 1 on 08/10/2023 by Jaskaran Simpson Jr., MD at [facility] Implant Right: Shoulder DEPUY SYNTHES 01/17/2027 [id number] / / [id number] Baseplt Modular Inhance 24mm Sm - [id number] Implanted:Q ty: 1 on 08/10/2023 by Jaskaran Simpson Jr., MD at [facility] Implant Right: Shoulder DEPUY SYNTHES 03/19/2028 [id number] / / [id number] Scrw Lk Inhance Slf/Drl 20/25mm - [id number] Implanted:Q ty: 1 on 08/10/2023 by Jaskaran Simpson Jr., MD at [facility] Implant Right: Shoulder DEPUY SYNTHES 05/20/2028 [id number] / / [id number] Scrw Centrl Inhance 6x35mm - [id number] Implanted:Q ty: 1 on 08/10/2023 by Jaskaran Simpson Jr., MD at [facility] Implant Right: Shoulder DEPUY SYNTHES 05/20/2027 [id number] / / [id number] Sut Nonabs Bone Dynacord Uhmwpe W/Os/6 Ndl 2pk Strip/Avery - [id number] Implanted:Q ty: 1 on 08/10/2023 by Jaskaran Simpson Jr., MD at [facility] Implant Right: Shoulder DEPUY MITEK [id number] / / Shll Hum/Shldr Inhance Rev Pls/O 32mm Sm - [id number] Implanted:Q ty: 1 on 08/10/2023 by Jaskaran Simpson Jr., MD at [facility] Implant Right: Shoulder DEPUY SYNTHES 07/20/2027 [id number] / / [id number] Stem Hum/Shldr Inhance 49j534td Sm Std - [id number] Implanted:Q ty: 1 on 08/10/2023 by Jaskaran Simpson Jr., MD at [facility] Implant Right: Shoulder DEPUY 04/19/2028 [id number] / / [id number] Liner Hum/Shldr Inhance Rev Pls/0 Rt/Retnt 32mm - [id number] Implanted:Q ty: 1 on 08/10/2023 by Jaskaran Simpson Jr., MD at [facility] Implant Right: Shoulder DEPUY 07/20/2027 [id number] / / [id number] Cp Depuy Shldr Rev Inhance Centrl/Scrw - [id number] Implanted:Q ty: 1 on 08/10/2023 by Jaskaran Simpson Jr., MD at [facility] Implant Right: Shoulder DEPUY CAPSHLDREVINHANC EC ENTRLSCRW / / Cmt Bone Palacos R Hi/Visc 1x40 - [id number] Implanted:Q ty: 2 on 02/17/2024 by Naseem Brewer MD at [facility] Implant Left: Knee [employer] 07/20/2028 [id number] / / [id number] Dev Contrl Tiss Stratafix Spiral Mncryl Pls Ps 3/0 30cm Ud - [id number] Implanted:Q ty: 1 on 02/17/2024 by Naseem Brewer MD at [facility] Implant Left: Knee ETHICON DIV OF J AND J [id number] / / Dev Contrl Tiss Stratafix Symm Pds Plus Claudia Ct-1 60cm - [id number] Implanted:Q ty: 1 on 02/17/2024 by Naseem Brewer MD at [facility] Implant Left: Knee ETHICON DIV OF J AND J [id number] / / Base Tib/Kn Gen2 Nonpor Ti Sz3 Lt - [id number] Implanted:Q ty: 1 on 02/17/2024 by Naseem Brewer MD at [facility] Implant Left: Knee ACE AND NEPHEW [id number] 08/19/2033 [id number] / / [id number] Comp Fem Legion Oxinium Ps Nrw Sz5n Lt - [id number] Implanted:Q ty: 1 on 02/17/2024 by Naseem Brewer MD at [facility] Implant Left: Knee ACE AND NEPHEW [id number] 10/19/2033 [id number] / / [id number] Pat Resrf Gen2 7.5x29mm - [id number] Implanted:Q ty: 1 on 02/17/2024 by Naseem Brewer MD at [facility] Implant Left: Knee ACE AND NEPHEW [id number] 09/26/2033 [id number] / / [id number] Insrt Art/Kn Legion Ps Hf Xlpe Sz3to4 10mm - [id number] Implanted:Q ty: 1 on 02/17/2024 by Naseem Brewer MD at [facility] Implant Left: Knee ACE AND NEPHEW [id number] 11/04/2033 [id number] / / [id number] Totl Kn Atul Ace Nephew - [id number] Implanted:Q ty: 1 on 02/17/2024 by Naseem Brewer MD at [facility] Implant Left: Knee ACE AND NEPHEW [id number] / / Cmt Bone Palacos R Hi/Visc 1x40 - [id number] Implanted:Q ty: 2 on 12/14/2024 by Naseem Brewer MD at [facility] Implant Right: Knee [employer] 02/17/2029 [id number] / / [id number] Base Tib/Kn Gen2 Nonpor Ti Sz2 Rt - [id number] Implanted:Q ty: 1 on 12/14/2024 by Naseem Brewer MD at [facility] Implant Right: Knee ACE AND NEPHEW 04/26/2034 [id number] / / [id number] Pat Resrf Gen2 7.5x29mm - [id number] Implanted:Q ty: 1 on 12/14/2024 by Naseem Brewer MD at [facility] Implant Right: Knee ACE AND NEPHEW 05/23/2034 [id number] / / [id number] Comp Fem/Kn Legion Oxinium Ps Sz4 Rt - [id number] Implanted:Q ty: 1 on 12/14/2024 by Naseem Brewer MD at [facility] Implant Right: Knee ACE AND NEPHEW 06/26/2033 [id number] / / [id number] Insrt Art/Kn Legion Ps Hf Xlpe Sz1to2 9mm - [id number] Implanted:Q ty: 1 on 12/14/2024 by Naseem Brewer MD at [facility] Implant Right: Knee ACE [employer] NEPHEW 08/26/2027 [id number] / / [id number] Totl Kn Atul Ace Nephew - [id number] Implanted:Q ty: 1 on 12/14/2024 by Naseem Brewer MD at [facility] Implant Right: Knee ACE AND NEPHEW [id number] [...] - 5.60 % 12/08/2024 3:43 PM EDT [facility] Blood Venipuncture / Unknown 12/08/2024 2:35 PM EDT 12/08/2024 3:13 PM EDT [facility] - 12/08/2024 3:43 PM EDT Hemoglobin A1C Ranges: Increased Risk for Diabetes 5.7% to 6.4% Diabetes >= 6.5% Diabetic Goal < 7.0% Naseem Brewer MD LAB BLOOD ORDERABLES F inal Result [facility]
[address] [phone] * (ABNORMAL) Lipid Panel (05/12/2023 8:22 AM EDT) Total Cholesterol 184 0 - 200 mg/dL 05/12/2023 9:14 AM EDT [facility] Triglycerides 48 0 - 150 mg/dL 05/12/2023 9:14 AM EDT [facility] HDL Cholesterol 111(H) 40 - 60 mg/dL 05/12/2023 9:14 AM EDT [facility] LDL Cholesterol 63 0 - 100 mg/dL 05/12/2023 9:14 AM EDT [facility] VLDL Cholesterol 10 5 - 40 mg/dL 05/12/2023 9:14 AM EDT [facility] LDL/HDL Ratio 0.57 05/12/2023 9:14 AM EDT [facility] Blood Line / Unknown 05/12/2023 8: 22 AM EDT 05/12/2023 8:46 AM EDT [facility] - 05/12/2023 9:14 AM EDT [...] High 160-189 mg/dL Very High >189 mg/dL Mara Yost FISCAL ACCOUNTANT LAB BLOOD ORDERABLES Final R esult [facility]
[address] [place] [address], * SCANNED - DEXA (04/12/2019) Anatomical Region Laterality Modality Other Jose Luis Hearn MD CHART REVIEW TABS Final Resul t from Last 3 Months or Most Recently Relevant to Health Maintenance Additional Health Concerns Active Problems Noted Date Diagnosed Date Autogenerated Problem 01/14/2025 Insurance MEDICAID [place] [employer] MEDICARE ADVANTAGE [facility] Advance Directives * CPR (Attempt to Resuscitate) [...] Of Support Discussed With: Patient Care Teams Appraiser Boats And Marine Relationship Specialty Start Date End Date Miller Hazel MD [address] [facility] [address] [place] [address] PCP - General Adolescent Medicine 10/30/19
== END 2025-05-10 23:59 | disposition home or self-care (01) ==
LOC: RAD 14:18
PROVIDERS: PCP Nurse Practitioner Family; Visit Provider Nurse Practitioner Family
DX: N64.4 Mastodynia (principal)
CPT/HCPCS: 76641

== ENCOUNTER 2025-06-22 13:50 | Outpatient (CLI) | payer MEDICARE, MEDICAID, SELFPAY ==
--- OUTSIDE RECORDS SUMMARY | 2019-04-21 10:36 | XMS_ITS | Encounter Summary ---
Author Organization [facility] ystem Address [address] [place] [id number] Care Team Providers Care Medical Front Desk Coordinator Name Role Phone Adrián Frost MD Primary Care Provider Encounter Details Date Type Department Care Team (Late st Contact Info) Description 04/21/2019 10:36 AM EDT Hospital Encounter [facility] MEDICINE [address] [place] [address] 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 Tobacco Use Types Packs/Day Years Used Date Smoking Tobacco: Former Cigarettes 0.5 20 0 02/1971 - 02/1991 Passive Smoke Exposure: Past Smokeless Tobacco: Never Alcohol Use Standard Drinks/Week Comments Not Currently 0 (1 standard drink = 0.6 oz pur e alcohol) AUDIT-C Answer Date Recorded Q1: How often do you have a drink containing alcohol? Never 12/14/2024 Q2: How many drinks containi ng alcohol do you have on a typical day when you are drinking? Patient does not drink Q3: How often do you have si x or more drinks on one occasion? Never 12/14/2024 PHQ-2 Answer Date Recorded Retired Total Score 0 04/04/2020 Abuse Screen Answer Date Recorded Feels Unsafe at Home or Work/School no 12/14/2024 Feels Threatened by Someone no 11/19 Does Anyone Try to Keep You From Having Contact with Others or Doing Things Outside Your Home? no 12/14/2024 Physical Signs of Abuse Present no 12/14/2024 Housing Stability Answer Date Recorded Current Living Arrangements home 11/19 Potentially Unsafe Housing Conditions Not on olivia e 12/15/2024 Disabilities Answer Date Recorded Difficulty Concentrating, Remembering or Making Decisions no 12/14/2024 Difficulty Managing Errands Independently no 12/14/2024 Education Answer Date Recorded Help with school or training? 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 Wish to be (Past 1 Month) No 025 12:49 PM EDT Zohra Arzola RN 2. Non-Specific Active Suici jesse Thoughts (Past 1 Month) No 12/14/2024 12:49 PM EDT Elmer Arzola RN * Calculated C-SSRS Risk Score (Lifetime/Recent) Answer Date of Assessment Author No Risk Indicated 12/14/2024 12:49 PM EDT Zohra Heard RN * [place] Suicide Severity Rating Scale (Screener/Recent Self-Report) Question Answer Date of Assessment Author 6. Suicidal Behavior (Lifetime) No 12:49 PM EDT Zohra Arzola RN documented as of this encounter Plan of Treatment Upcoming Encounters Date Type Department Care Team (Late st Contact Info) Description 07/10/2025 10:30 AM EDT Office Visit [facility] MEDICINE [address] [facility] [address] [place] [address] Winnie Laura APRN [address] [place] [address] 03/04/2026 10:45 AM EDT Office Visit [facility] CARDIOLOGY [address] [place] [address] Jerson Underwood MD [address] [facility] [address] [place] [address] 05/01/2026 11:00 AM EDT Office Visit [facility] CARDIOTHORACIC SURGERY [address] [place] [id number] Radha Lowry, SAP MANAGER [address] [place] [address] documented as of this encounter Procedures Procedure Name Priority Date/Time Associated Diagnosis Comments XR CHEST PA AND LATERAL Routine 04/21/2019 10:48 AM EDT Dyspnea, unspecified type documented in this encounter Results * XR Chest PA & Lateral (04/21/2019 10:48 AM EDT) Anatomical Region Laterality Modality Body, Chest N/A Radiographic Summer ging Teofilo Shaikh MD IMG DIAGNOSTIC IMAGING ORDERABLES Final Result documented in this encounter Visit Diagnoses Not on filedocumented in this encounter Additional Health Concerns Infection Onset Date Last Indicated Resolved Time COVID Screen (preop/placement) 08/04/2020 08/04/2020 08/04/2020 9:21 PM EST C.difficile (rule out) 03/06/2022 03/06/202203/11 9:08 PM EDT documented as of this encounter Care Teams Medical Front Desk Coordinator Relationship Specialty Start Date End Date Adrián Frost MD [address] [place] [address] PCP - General Family Medicine 04/12/19 10/29/19 documented as of this encounter
--- OUTSIDE RECORDS SUMMARY | 2023-05-19 09:46 | XMS_ITS | Encounter Summary ---
[facility] Address [address] [place] [address] Care Team Providers Care Scaffold Setter Name Role Phone Miller Hazel MD Primary Care Provider Encounter Details Date Type Department Care Team (Late st Contact Info) Description 05/19/2023 9:46 AM EDT Hospital Encounter [facility] PULMONARY & CRITICAL CARE MEDICINE [address] [place] [address] 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 Tobacco Use Types [...] or training? Not on file Preferred Language South Sudanese 12/08/2024 Comments No Sex and Gender Information [...] 12:49 PM EDT Zohra Heard RN * [place] Suicide Severity Rating Scale (Screener/Recent Self-Report) Question Answer Date of Assessment Author 6. Suicidal Behavior (Lifetime) No 12:49 PM EDT Zohra Arzola RN documented as of this encounter Plan of Treatment Upcoming Encounters Date Type Department Care Team (Late st Contact Info) Description 07/10/2025 10:30 AM EDT Office Visit [facility] PULMONARY & CRITICAL CARE MEDICINE [address] [facility] [address] [place] [phone] Winnie Laura APRN [address] [place] [address] 03/04/2026 10:45 AM EDT Office Visit [facility] CARDIOLOGY [address] [place] [address] Jerson Underwood MD [address] [facility] [address] [place] [address] 05/01/2026 11:00 AM EDT Office Visit [facility] CARDIOTHORACIC SURGERY [address] [facility] [address] [place] [phone] Radha Lowry, YOUTH CORRECTIONS OFFICER [address] [facility] [address] [place] [address] documented as of this encounter Procedures Procedure Name Priority Date/Time Associated Diagnosis Comments XR CHEST PA AND LATERAL Routine 05/19/2023 9:55 AM EDT Mild COPD (Stage I) documented in this encounter Results * XR Chest PA & Lateral (05/19/2023 9:55 AM EDT) Anatomical Region Laterality Modality Body, Chest N/A Radiographic Summer ging 05/19/2023 3:19 PM EDT Impressions 05/19/2023 3:21 PM EDT Impression: No acute cardiopulmonary findings. Electronically Signed: Rogers Campo MD 05/19/2023 3:21 PM EDT Workstation ID: [id number] Narrative 05/19/2023 3:21 PM EDT XR CHEST PA AND LATERAL Date of Exam: 05/19/2023 9:55 AM EDT Indication: COPD Comparison: 05/25/2019 Findings: Probable calcified granuloma in the right midlung. Thoracolumbar posterior fixation hardware has been extended further cephalad. No focal pulmonary consolidations are evident. Pulmonary vascularity appears within normal limits. No pleural fluid is seen. Calcified lymph nodes in the right hilum and subcarinal region. Heart size and mediastinal contour are within normal limits. Aortic vascular calcification is noted. No pneumothorax is seen. Procedure Note Rogers Campo MD - 05/19/2023 XR CHEST PA AND LATERAL Date of Exam: 05/19/2023 9:55 AM EDT Indication: COPD Comparison: 05/25/2019 Findings: Probable calcified granuloma in the right midlung. Thoracolumbar posteriorfixation hardware has been extended further cephalad. No focal pulmonaryconsolidations are evident. Pulmonary vascularity appears within normallimits. No pleural fluid is seen. Calcified lymph nodes in the right hilum and subcarinal region. Heart sizeand mediastinal contour are within normal limits. Aortic vascularcalcification is noted. No pneumothorax is seen. IMPRESSION: Impression: No acute cardiopulmonary findings. Electronically Signed: Rogers Campo MD 05/19/2023 3:21 PM EDT Workstation ID: [id number] Winnie Laura APRN IMG DIAGNOSTIC IMAGING ORD ERABLES Final Result documented in this encounter Visit Diagnoses Not on filedocumented in this encounter Care Teams Scaffold Setter Relationship Specialty Start Date End Date Miller Hazel MD [facility] [place] [facility] [address] [place] [address] PCP - General Adolescent Medicine 10/30/19 documented as of this encounter
--- OUTSIDE RECORDS SUMMARY | 2025-05-01 11:00 | XMS_ITS | Encounter Summary ---
Author Organization [facility] ystem Address [address] [place] [address] Care Team Providers Care Home Visits Nurse Name Role Phone Miller Hazel MD Primary Care Provider [phone] Reason for Visit * Reason Comments Carotid Artery Disease 1 year follow up with carotid duplex Encounter Details Date Type Department Care Team (Late st Contact Info) Description 05/01/2025 11:00 AM EDT Office Visit [facility] CARDIOTHORACIC SURGERY [address] [address] Radha Lowry, NATURAL GAS PLANT TECHNICIAN [address] [place] [address] Stenosis of left carotid artery (Primary Dx) [...] or training? Not on file Preferred Language Syrian 12/08/2024 Comments No Sex and Gender Information [...] from the original note were not included. [facility] Cardiothoracic Surgery Office Follow Up Note Date [...] therapy. She continues to be followed by trial justice Dr Underwood. Review of Systems: Review of [...] tablet, Take 2 tablets by mouth Daily. detention, Disp: , Rfl: primidone (MYSOLINE) 250 MG [...] RIGHT; Surgeon: Jaskaran Simpson Jr., MD; Location: [facility]; Service: Orthopedics; Laterality: Right; TUBAL ABDOMINAL LIGATION [...] the nearest emergency department. Radha Lowry APRN [facility] Cardiothoracic Surgery Time Spent: I spent 29 minutes caring for Yoko on this date of service. This time includes timespent by me in the following activities: preparing for the visit, reviewing tests, obtaining and/orreviewing a separately obtained history, performing a medically appropriate examination and/or evaluation, counseling and educating the patient/family/caregiver, ordering medications, tests, or proced ures, referring and communicating with other health career development facilitator, documenting information in the medical record, independently interpreting results and communicating that information with the patient/family/caregiver, and care coordination. documented in this encounter Plan of Treatment Upcoming Encounters Date Type Department Care Team (Late st Contact Info) Description 07/10/2025 10:30 AM EDT Office Visit [facility] PULMONARY & CRITICAL CARE MEDICINE [address] [facility] [address] [place] [address] Winnie Laura APRN [address] [place] [address] 03/04/2026 10:45 AM EDT Office Visit [facility] CARDIOLOGY [address] [facility] [address] [place] [phone] Jerson Underwood MD [address] [facility] [address] [place] [address] 05/01/2026 11:00 AM EDT Office Visit [facility] CARDIOTHORACIC SURGERY [address] [facility] [address] [place] [phone] Radha Lowry APRN [address] [facility] [address] [place] [address] documented as of this encounter Visit Diagnoses Diagnosis Stenosis of left carotid artery- Primary Occlusion and stenosis of carotid artery without mention of cerebral infarction documented in this encounter Care Teams Home Visits Nurse Relationship Specialty Start Date End Date Miller Hazel MD [address] [facility] [address] [place] [address] PCP - General Adolescent Medicine 10/30/19 documented as of this encounter
--- OUTSIDE RECORDS SUMMARY | 2025-05-23 07:35 | XMS_ITS | Encounter Summary ---
Author Organization [facility] Address [address] [place] [address] Care Team Providers Care Salt Plant Operator Name Role Phone Miller Hazel MD Primary Care Provider [phone] Encounter Details Date Type Department Care Team (Late Contact Info) Description 05/23/2025 7:35 AM EDT Ancillary Procedure [facility] [address] [place] [address] 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 Tobacco Use Types Packs/Day [...] Department Care Team (Late Contact Info) Description 11/21/2025 10:15 AM EST Office Visit [facility] [address] [place] [id number] Raymond Cano MD [address] [address] documented as of this encounter Procedures Procedure Name Priority Date/Time Associated Diagnosis Comments OCT, OPTIC NERVE - OU - BOTH EYES Routine 05/23/2025 12:04 PM EDT Primary open angle glaucoma (POAG) of both eyes, 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 To assess optic nerve function and for use in future follow-up. Reliability: good and adequate. Left Eye Images reviewed and comparison made to baseline. To assess optic nerve function and for use in future follow-up. Reliability: good and adequate. Notes May 2025 OD: diffuse thinning, avg 25 um. suspicious for progression compared to previous OS: polar thinning, temporal thinning avg 58 um. stable compared to previous. Image quality poor due to retinal pathology and artifact us Raymond Cano MD OPHTH TOMOGRAPHY Final Resul t documented in this encounter Visit Diagnoses Not on filedocumented in this encounter Additional Health Concerns Assessment Noted Time A fall risk assessment has been complete d for the patient 11/07/2024 11:20 AM EST A Body Mass Index follow-up plan has been documented for the patient 05/23/2025 12:21 PM EDT documented as of this encounter Care Teams Salt Plant Operator Relationship Specialty Start Date End Date Miller Hazel MD [address] [place] [id number] PCP - General 08/04/21 documented as of this encounter
--- OUTSIDE RECORDS SUMMARY | 2025-05-23 10:30 | XMS_ITS | Encounter Summary ---
Author Organization Healthcare Address [address] [place] [address] Care Team Providers Care Network Security Administrator Name Role Phone Miller Hazel MD Primary Care Provider [phone] Encounter Details Date Type Department Care Team (Latest Contact Info) Description 05/23/2025 10:30 AM EDT Office Visit [facility] [address] [place] [address] Raymond Cano MD [address] [address] Primary open angle glaucoma (POAG) of both eyes, indeterminate stage (Primary Dx); Toxic maculopathy of both eyes 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 Tobacco Use Types Packs/Day Years [...] as of this encounter Miscellaneous Notes * Progress Notes - Raymond Cano MD - 05/23/2025 10:30 AM EDT At previous she reported: occasional blue flash in the right eye, no obvious triggers. Recently on high doses of steroid - hospitalized with the worst pain ever from lupus and RA. Recently tapered down from 20 to 10 mg, feeling better now. Was wearing old glasses because they seemed to work better than the new ones. Had total should surgery Jul 2023. Glaucoma History Summary: Diagnosis: open angle glaucoma OU, indeterminate. Plaquenil toxic maculopathy Length of Diagnosis: first diagnosed with glaucoma ~ 2005, developed progressive VF loss OS in 2010. Lupus since 1986 Maximum IOP OD: unknown - normal OS: unknown - normal . Goal IOP OD: 12 mmHg or less OS: 12 mmHg or less. Pachymetry OD: 494 (2011) OS: 482 (2011). Current Meds: Cosopt BID OU, holding Travatan OU Med Failure: Latanoprost was a therapeutic failure Surgery OD: CE IOL 06/29/22 OS: CE IOL 2013. SLT History OD: 12/22/16 Last HVF: Jul 2024 OD: central supr scotoma splitting fixation, patchy inferonasal and superotemp depression (MD -6.88 dB), reliability good, suggests similar to previous but with gradual progressionsince 2011 2011 OS: cecocentral scotoma md -10.96; OD central scotoma, nasal step md -5.32 Last RNFL: May 2025 OD: diffuse thinning, avg 25 um. suspicious for progression compared to previous OS: polarthinning, temporal thinning avg 58 um. stable compared to previous. Image quality poor due to retinal pathology and artifact July 20, 2023 OD: diffuse thinning, avg 43 um. stable compared to previous OS: polar and temporal thinning, avg 55 um. stable compared to previous. Image quality good OU. Oct 30, 2021 OD: diffuse thinning, avg 37 um. likely progressed compared to previous OS: diffuse thinning, avg 50 um. suspicious for progression compared to previous. Image quality good OU. Likely progression in both eyes but confounded by maculopathy. Jul 2020: OD: severe diffuse thinning, 46 um. OS- polar and temp thinning, 64 um likely with some segmentation artifact. Both eyes appear stable to Sep 2018. Family History: niece with glaucoma Steriod Use or Medications of Interest: previous steroid use 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 of Significance: Lupus, Plaquenil maculopathy, HTN Headaches or Raynaud's: Migraine headaches, Raynauds syndrome, had a heart stent on 08/2022. 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 Assessment/Plan Diagnoses and all orders for this visit: Primary open angle glaucoma (POAG) of both eyes, indeterminate stage - OCT, Optic Nerve - OU - Both Eyes Toxic maculopathy of both eyes - OCT, Optic Nerve - OU - Both Eyes 1. POAG OU - probably pressure independent / vascular secondary to lupus: - continues low dose oral Prednisone 5 mg daily VA stable (but count fingers only) OS . Likely secondary to plaquenil maculopathy Goal IOP 12 or less, borderline today on Cosopt BID OU, holding Vignesh nightly OD only - Latanoprost was previously a therapeutic failure. - Repeat SLT an option if IOP climbs again 03/02/23: - IOP great, 12 12 with stable exam on Dorz / Timolol BID OU. Holding Travatan since cataract surgery OU. Will continue this regimen. -Still taking Pred 5mg daily - Reports worsening headaches all over head (worse on left side than right), dizziness, intermittent eye pain. Denies TLOV. Negative GCA symptoms - Exam stable. From Ophth standpoint would be reasonable to increase prednisone dose if needed for escalating headaches. - Sees Dr. Betancourt next month 07/20/23: RNFL today stable OU. IOP slightly higher today at 14/15 on cosopt OU, but recently on higher systemic steroid dose, now tapering. Mac OCT stable as well. Could CPM for now vs. Restart Travatan which she was taking before surgery. Recommend recheck once she has been stabilized on the lower dose of prednisone before escalating treatment. 11/10/23: IOP is better today 12/11 on Cosopt BID OU. Finished steroids taper last week. Now off PO steroids. Can CPM for now. 05/02/24: IOPs today are excellent 11/10 on cosopt BID. CH reassuring at 10.4/10.8. Stable exam Doing well on current regimen, cont. 06/15/24 ( [place]) : Called in due to seeing bull's eyes in vision. IOP today 14/12 on cosopt BID OU. Mac OCT stable OU. She may be describing worsening of glaucomatous visual field defects as she reports her abnormalities are in the nasal portion of her right eye which is where a previous VF defect was documented. Will bring back sooner than previously planned for HVF. 11/26/24: IOPs borderline today at 14 T 13, HVF OD suggests some gradual progression over past 12 years including central depression as she describes - ? delayed plaquenil effect? Rec cont this regimen of Dorz / Corky BID OU 11/07/24: stable exam with excellent IOPs. Pachy and CH also stable. [place] maculopathy similar toprevious, no other interim changes. Rec con Cosopt BID OU 05/2025: IOP today 12/12 on cosopt BID OU. RNFL global thinning OU to the floor, monitor. CPM on cosopt BID OU 2) chronic headaches, as above. - encouraged consistent hydration 3. Plaquenil toxicity/maculopathy OU OS>>OD History of 20 years use, discontinued 5+ years now - OCT MAC appears stable today, confirms severe atrophic changes OS > OD. - Most recent fundus exam remarkable for PVD OU, peripheral retina stable OU. 4. PCIOL OD Had cataract surgery in the right eye 06/29/22. Hx of rebound inflammation post-op, now stable. Continue CS BID, hold Travatan. 5. mild dry eye OU - artificial tears as needed. 6. PP OS: [place] clear Observe Tobacco Use: Medium Risk (05/23/2025) Patient History Smoking Tobacco Use: Former Smokeless Tobacco Use: Never Passive Exposure: Past The patient has been counseled on tobacco cessation: Not Applicable I saw and evaluated the patient with the resident/fellow. I discussed the case with the resident/fellow and agree with the findings and plan as documented. Raymond Cano MD documented in this encounter Plan of Treatment Upcoming Encounters Date Type Department Care Team (Late st Contact Info) Description 11/21/2025 10:15 AM EST Office Visit [facility] [address] [place] [address] Raymond Cano MD [address] [place] [address] documented as of this encounter Procedures [...] t documented in this encounter Visit Diagnoses Diagnosis Primary open angle glaucoma (POAG) of both eyes, indeterminate stage- Primary Toxic maculopathy of both eyes documented in this encounter Additional Health Concerns Assessment Noted Time A fall risk assessment has been complete d for the patient 11/07/2024 11:20 AM EST A Body Mass Index follow-up plan has been documented for the patient 05/23/2025 12:21 PM EDT documented as of this encounter Care Teams Network Security Administrator Relationship Specialty Start Date End Date Miller Hazel MD [address] [place] [id number] PCP - General 08/04/21 documented as of this encounter
--- OUTSIDE RECORDS SUMMARY | 2025-06-22 13:54 | XMS_ITS | Clinical Summary ---
Author Organization [facility] ([place], [place], [place], [place]) Address [address] [place] [address] Care Team Providers Care Supervisor Machine Workers Name Role Phone Miller Hazel MD Primary Care Provider [phone] Allergies Active Allergy Reactions Criticality Noted Date [...] Date Arnaud rded Speak language other than Montenegrin at home Not on file 10/01/2023 Want [...] Pneumococcal 50+ years (2 of 2 - PCV20 or PCV21) 10/02/2020 10/02/2019 Respiratory Syncytial Virus (RSV) Adult or (1 - 1-dose 75+ series) 2022 Medicare Initial AWV [id number] 09/21/2023 Tobacco Cessation Counseling and Screening (12+) 06/30/2024 06/30/2023 Falls Risk Screening 09/20/2024 COVID-19 VACCINE (8 - 2024-2 6 season) 2025 04/23/2022, 12/18/2020, 12/18/2020, Additional history exists Influenza Vaccine (#1) 2025 , 08/19/2022, 06/08/2022, Additional history exists Shingles Vaccine (Zoster) Completed 05/09/2020, 05/2019 Insurance [employer] MEDICARE PPO MEDICAID OF [place] Advance Directives For more information, please contact: [phone] * Full Code (Latest Code Status on File) Date Activated Date Inactivated Comments 06/30/2023 12:33 PM 07/06/2023 2:55 PM Care Teams Supervisor Machine Workers Relationship Specialty Start Date End Date Miller Hazel MD [address] [place] [address] [place] [id number] PCP - General Adolescent Medicine 06/30/23
--- OUTSIDE RECORDS SUMMARY | 2025-06-22 13:55 | XMS_ITS | Clinical Summary ---
Author Organization [facility] Address [address] [place] [address] Care Team Providers Care P D Driver Name Role Phone Miller Hazel MD Primary Care Provider [phone] Allergies Active Allergy Reactions Criticality Noted Date Comments Aspirin Other - please document in the comment field Low 02/12/2016 Renal issues Baclofen Other - please document in the comment field Low 05/23/2025 baclofen Ibuprofen Other - please document in the [...] FOR 12 HOURS 4 Active HYDROcodone-ann taminophen ([place]) 7.5-325 MG tablet TAKE ONE TABLET BY [...] (Symmetrel) 100 MG tablet Active nystatin (Mycostatin) 418678 UNIT/ML suspension Take 4 mL (400,000 Units) by mouth 2 (two) times a day. 4 Active oxybutynin XL (Ditropan-XL) 10 MG 24 hr tablet Take 1 tablet (10 mg) by mouth 1 (one) time each day. 4 Active dorzolamide-willa olol (Cosopt) 2-0.5 % ophthalmic solution Administer 1 drop into both eyes 2 times a day. 20 mL 3 5 Active colchicine (Colcrys) 0.6 MG tablet Take 1 tablet by mouth daily. 5 Active Active Problems Problem Noted Date [...] Encounters Date Type Department Care Team Description 05/23/2025 10:30 AM EDT Office Visit [facility] [address] [place] [address] Raymond Cano MD Primary open angle glaucoma (POAG) of both eyes, indeterminate stage (Primary Dx); Toxic maculopathy of both eyes 05/23/2025 7:35 AM EDT Ancillary Procedure [facility] [address] [place] [address] 05/23/2025 Travel 05/07/2025 Telephone [facility] [address] [place] [address] Annika Sheridan MD from Last 3 Months [...] Description 11/21/2025 10:15 AM EST Office Visit [facility] [address] [place] [address] Raymond Cano MD [address] [address] Health Maintenance Due Date Last Done Comments [facility]-Bone Density Scan 1945 [facility]-Depression Screening 1945 [facility]-Hepatitis C Screening 1945 [facility]-Medicare Annual Wellness (AWV) 1945 [facility]-Infant/Child/Adol SDOH Screenings 1945 [facility]- SDOH Screenings 1965 [facility]-Adult SDOH Screenings 1965 [facility]-RSV Vaccine: 60+ Years or (1 - 1-dose 75+ series) 2022 [id number] Vaccine (11 - Moderna risk 2023- season) 2025 06/14/2024, 07/29/2023, 04/23/2022, Additional history exists [facility]-Influenza Vaccine (#1) 05/21/202506/20, 05/29/2024, 06/22/2023, Additional history exists [facility]-Diabetes: Hemoglobin A1C 12/08/2025 12/08/2024, 02/09/2024, 08/05/2023, Additional history exists [facility]-DTaP,Tdap,and Td Vaccines (2 - Td or Tdap) 07/29/2033 07/29/2023 [facility]-Zoster Vaccines Completed 05/09/2020, 9 [facility]-Pneumococcal Vaccine: 50+ Years Completed 07/05/2023, 10/02/2019, 09/20/2016 [facility]-Obesity Intervention Completed 025, 11/07/2024, 09/29/2024, Additional history exists HPV Vaccines Aged Out [...] this topic Medical Devices Implanted Type Area Box Toe Cutter Device Identifier Shelf Expiration Date Model / Serial / Lot Lens [id number] - [id number] Implanted:Qty: 1 on 06/29/2022 by Annika Sheridan MD at [facility] Right: Eye [id number] 01/06/2027 [id number] / [id number] / [id number] Procedures Procedure Name Priority Date/Time Associated Diagnosis Comments OCT, OPTIC NERVE - OU - BOTH EYES Routine 05/23/2025 12:04 PM EDT Primary open angle glaucoma (POAG) of both eyes, indeterminate stage Toxic maculopathy of both eyes from Last 3 Months Results * OCT, Optic Nerve - OU [...] Cano MD OPHTH TOMOGRAPHY Final Resul t from Last 3 Months Insurance MEDICAID-[place] HU[employer] MEDICARE Care Teams P D Driver Relationship Specialty Start Date End Date Miller Hazel MD [address] [address] PCP - General 08/04/21
--- OUTSIDE RECORDS SUMMARY | 2025-06-22 13:55 | XMS_ITS | Data Portability ---
Author Organization [facility] [place] [facility] Address [address] [place] [address] Care Team Providers Care Caustic Mixer Name Role Phone RADHA MIDDLETON Primary Care Provider [phone] TWILA BETANCOURT [employer] Executive Director NNAMDI, CORCHIA Bread Baker Unavailabl e Assessment Encounter Date Assessment Date Assessment LastModified by Organization Details LastModified Time 03/02/2025 03/02/2025 This is a 79-year-old female with chronic low back pain. Today she complains of low back pain left greater than right that is similar to pain we have treated previously. She would like to discuss of repeat MEGAN which has historically provided durable relief she is status post right total knee with Dr. Brewer. PMH: Parkinson's, CAD (Plavix, ASA), gout PSHx: T10-S2 fusion, Left knee TKA m([place], 01/2024), right knee TKA (12/07/2024, coy) 1. [...] Previous injection therapy has included: 09/18/2024 Caudal MEGAN with 70% x 6 months 07/27/2024 Right knee intra-articular injection (triamcinolone) with 85% ongoing 05/16/2024 caudal MEGAN with 80% x 3 months 04/20/2024 Right knee intra-articular injection (triamcinolone) with 80% 01/31/2024 Right knee intra-articular injection (triamcinolone) with 80% x 3 months 01/11/2024 Caudal MEGAN 85% x 3 months 10/21/2023 bilateral IA knee injection with 70% ongoing relief 10/07/2023 caudal MEGAN with greater than 80% ongoing relief 07/12/2023 left L5-S1 TFESI with 80% benefit x 6 weeks Home physical therapy has been ordered. Presentation is consistent with left S1 radiculopathy, bilateral knee pain likely osteoarthritis. I recommend: 1. Repeat caudal MEGAN. Updated cardiac clearance has been requested for [...] including imaging, clinical notes, and relevant labs. [email or web address] Not available 03/12/2025 12:18:35 04/24/2025 04/24/2025 This is a 79-year-old female with chronic low back pain and left buttock pain. Recent caudal MEGAN provided notable improvement that lasted only 3 days. She endorses ongoing left low back pain buttock pain and S1 radicular pain. She points to the left SI joint in the center of her buttock. Aleida finger sign +, thigh thrust +, sacral thrust +, JER + PMH: Parkinson's, CAD (Plavix, ASA), gout PSHx: T10-S2 fusion, Left knee TKA m([place], 01/2024), right TKA ([place], 11/2024) 1. X-ray lumbar spine 04/27/2022 demonstrates previous [...] the patient. Previous injection therapy has included: 04/09/2025 caudal MEGAN with 90% x 3 days 09/18/2024 Caudal MEGAN with 70% x 6 months 07/27/2024 Right knee intra-articular injection (triamcinolone) with 85% ongoing 05/16/2024 caudal MEGAN with 80% x 3 months 04/20/2024 Right knee intra-articular injection (triamcinolone) with 80% 01/31/2024 Right knee intra-articular injection (triamcinolone) with 80% x 3 months 01/11/2024 Caudal MEGAN 85% x 3 months 10/21/2023 bilateral IA knee injection with 70% ongoing relief 10/07/2023 caudal MEGAN with greater than 80% ongoing relief 07/12/2023 left L5-S1 TFESI with 80% benefit x 6 weeks Home physical therapy has been ordered. Presentation is consistent with left S1 radiculopathy. I recommend: 1. Sinew gabapentin as prescribed 2. Lumbar flexion-extension x-ray 3. Lumbar MRI. 4. Consider additional MEGAN or other intervention such as spinal cord stimulator pending imaging outcome. 5. Will prescribe Medrol Dosepak to temporize pain as we await approval for SI joint injection and imaging. I had an in-depth discussion with the [...] including imaging, clinical notes, and relevant labs. [email or web address] Not available 04/24/2025 11:11:57 06/06/2025 06/06/2025 MRI lumbar and thoracic spine. 05/17/2025. [facility]. Images reviewed by Dr. Felton and myself. Chronic compression fracture at T9 above her previous fusion Ms. Jerez is a 79-year-old female status post T10 through iliac fusion with Dr. De Leon in 2020. Dr. Felton discussed with her that she does have a chronic compression fracture at T9 above her previous fusion. This does not appear to be the cause of her leg symptoms. Dr. Felton would like to get a CT of the lumbar and thoracic spine to better evaluate her hardware. Dr. Felton discussed with her that she may still be a candidate for spinal cord stimulator if this is technically feasible. In regards to her left radicular upper extremity pain extending into the hand, Dr. Felton recommends getting cervical x-rays. Since she does have issues with ambulation as well, we will also order a cervical MRI without contrast. She is going to follow-up after this imaging is complete. Seen by Dr. Felton and myself. [email or web address] Not available 06/06/2025 16:38:49 Plan of Treatment Reminders Order Date Submit Date Provider Last Modified By Organization Details Last Modified Time Details Appointments RHEUM RECHECK 2024 10:45A M TWILA BETANCOURT MD Not available Not available Not available MRI 2024 10:00A M MRI Not available Not available Not available CT SCAN 2024 10:20A M ct_scan Not available Not available Not available CT SCAN 2024 10:20A M ct_scan Not available Not available Not available RECHECK 2024 10:30A M FEDERICO [employer]LE[employer]OTTON AGENT Not available Not available Not available NEUROLOG Y RECHECK 2025 10:30A M NEENA DEVI DO Not available Not available Not available Lab CMP, serum or plasma [address] [facility], [address] [place] [address], [id number], 03/20/2025 08:07:21 CBC w/ auto diff [address] [place] [address], [address] [place] [address], [id number], 03/20/2025 08:07:21 urinalys is, complete [address] [place] [address] Laboratory, [address] [place] [address], [phone], 03/20/2025 08:07:22 ESR (erythro cyte sediment ation rate), blood [address] [place] [address], [address] [place] [address], [id number], 03/20/2025 08:07:22 C3 (complem ent), serum or plasma [address] [place] [address] Laboratory, [address] [place] [address], [id number], 03/20/2025 08:07:22 C4 (complem ent), serum or plasma [address] [place] [address] Laboratory, [address] [place] [address], [id number], 03/20/2025 08:07:22 dsDNA Ab, serum [address] [place] [address] Laboratory, [address] [place], [phone], 03/20/2025 08:07:22 uric acid, serum or plasma 2024 025 [facility], [address] [place] [address], [id number], 03/20/2025 08:07:22 Referral None recorded . Procedures epidural steroid injectio n, caudal (PROC) 2024 025 [email or web address] [facility] Professional Charges, [address] [facility], [facility] [place] [facility] [address], [place], [address], 03/30/2025 10:10:21 Surgeries None recorded . Imaging XR, lumbosac ral spine, 4 or more view 2024 025 [email or web address] [facility] [address] [place], [phone], 04/24/2025 13:59:41 MRI, lumbar spine, w/o contrast 2024 025 [facility], [address] [place] [address], [id number], 05/21/2025 10:32:12 Medication Orders Medrol (Edu) 4 mg tablets in a dose pack 2024 025 [facility], [address] [place] [address], [id number], 04/24/2025 11:17:49 allopuri nol 100 mg tablet 2024 025 [facility] [place] [facility], [address] [place] [address], [id number], 03/12/2025 09:54:51 Mitigare 0.6 mg capsule 2024 025 [facility], [address] [place] [address] [address], [id number], 03/12/2025 09:54:51 Benlysta 200 mg/mL subcutan eous auto-inj audrey 2024 025 [email or web address], [address] [place] [address], [place], [address], 03/06/2025 11:52:24 predniso ne 5 mg tablet 2024 025 [facility], [address] [place], [id number], 03/12/2025 09:54:50 Patient TargetsNo targets recorded. Patient Instructions Encounter Date Encounter Id Patient Instructions Last Modified By Organization Details Last Modified Time 03/02/2025 [id number] cardiac clearance* - Requesting cardiac clearance for patient to hold Plavix 7 days prior to caudal epidural steroid injection, resume 24 hours after [email or web address] Not available 04/03/2025 16:28:38 Reason for Referral None Reported. Results Created Date Observation Date Name Description Value Unit Range Abnormal Flag Note LastModifiedBy Organization Detail LastModifiedTime 04/24/2004/24/2025 XR, lumbo sacra l spine , 4 or more view [facility] [address] [place] [address] Patimayra t Name: AREN Plasencia t : 948 Patimayra t 1 Orderi ng Provid er: ZEHRA LARIOS EXAM DATE: 2024 EXAM: XR LUMBAR SPINE AP/LAT /FLEX/ EXT CLINIC AL INFORM ATION: Back pain. IMAGES PROVID ED: AP, latera l and coned- down views of the lumbar spine with additi onal latera l views in flexio n and extens ion. COMPAR MAXIMUS: None. FINDIN GS: Verteb ral body height s are normal . Previo us freight sales broker ior fusion extend ing from T10 to the sacrum . Cannul ated screws rasheed se both SI joints . No screw fractu re or indica tion of loosen ing is detect ed. No sublux ation is detect ed. No instab ility is seen on flexio n or extens ion. No radiog raphic eviden ce of injury is noted. IMPRES CHARLENE: Uncomp licate d appear ing thorac olumba r sacral fusion . No instab ility. Interp reted By: Teofilo Rao MD Electr onical ly Signed By: Teofilo Rao MD on 04/24/20 11:38 [facility] [address] [place], [phone], 04/25/2025 10:05:53 05/21/2005/17/2025 MRI, thora cic spine , w/o contr ast [facility] [address] [place] [address] Patien t Name: AREN JEREZ Patimayra t : 948 Patien t 1 Orderi ng Provid er: ZEHRA LARIOS EXAM DATE: 2024 EXAM: MR THORAC IC W/O CONTRA ST HISTOR Y: 79-yea r-old female with chroni c mid and low back pain radiat ing to the left hip. COMPAR MAXIMSU: None. FINDIN GS: There is a probab le old compre ssion fractu re of the T10 verteb ral body. There is osseou s fusion at T9-T10 . There is freight sales broker ior fusion extend ing from T10 throug h the lumbar spine. There is parama gnetic artifa ct from the pedicl e screws and freight sales broker ior fusion hardwa re. There is focal kyphos is at T9-T10 and kyphos is of the upper thorac ic spine. There is no acute fractu re. There is mild anteri or margin al osteop hytic spurri ng. No pathol ogic lesion is identi fied in the thorac ic spine. The visual ized spinal cord appear s normal . There is modera te freight sales broker ior spurri ng at T9-T10 . There is mild centra l canal narrow ing at this level. There is minima l neural forami nal narrow ing. There are minima l disc bulges in the remain ing levels of the thorac ic spine. There is no centra l canal stenos is or neural forami nal stenos is. There is no parasp inous soft tissue abnorm ality. The parasp inous muscul ature is symmet garfield. IMPRES CHARLENE: 1. There is osseou s fusion at T9-T10 with mild centra l canal narrow ing at this level. There is no compre ssion fractu re of the T10 verteb ral body with osseou s fusion at T9-T10 . 2. There is freight sales broker ior fusion extend ing from T10 throug h the lumbar spine. Interp reted By: Charlene ochoa MD Electr onical ly Signed By: Charlene ochoa MD on 05/21/20 10:[address] Rad[address], [phone], 05/23/2025 12:48:07 05/21/2005/17/2025 MRI, lumba r spine , w/o contr ast [address] [address] Patien t Name: AREN self : 948 Patien t 1 Orderi ng Provid er: ZEHRA [facility] EXAM DATE: 2024 EXAM: MR LUMBAR W/O CONTRA ST HISTOR Y: 79-yea r-old female with chroni c mid and low back pain radiat ing to the left hip. COMPAR MAXIMUS: Radiog raph dated 04/24/20 and MRI dated 018 FINDIN GS: There is freight sales broker ior fusion and joselyn ctomie s extend ing from T10 throug h the sacrum . There is parama gnetic artifa ct from the pedicl e screws and freight sales broker ior fusion hardwa re. There are prior discec erna and interb caitie graft at L1-L2, L2-L3 and L5-S1. There is a fluid collec tion in the joselyn ctomy defect . There is grade 1 anteri or listhe sis of L4 on L5. There is no fractu re. There is mild anteri or margin al osteop hytic spurri ng. No pathol ogic lesion is identi fied in the lumbar spine. The conus medull bob is normal in appear ance at the T12-L1 level. T12-L1 : There is mild endpla te spurri ng. There is no centra l canal narrow ing or neural forami nal narrow ing. L1-L2: There is a minima l disc bulge and mild endpla te spurri ng. There is no centra l canal stenos is. There is no neural forami nal stenos is. L2-L3: There is minima l endpla te spurri ng. There is no centra l canal stenos is. There is no neural forami nal stenos is. L3-L4: There is a mild disc bulge and minima l endpla te spurri ng. There is no centra l canal stenos is. There is mild right neural forami nal stenos is. L4-L5: There is mild endpla te spurri ng. There is no centra l canal stenos is. There is mild bilate ral neural forami nal stenos is. L5-S1: There is soft tissue extend ing into the left neural forame n and minima l endpla te spurri ng. There is no centra l canal stenos is. There is modera te/sev ere left and minima l right neural forami nal stenos is. There is severe atroph y of the parasp inous muscul ature. IMPRES CHARLENE: 1. There is modera te/sev ere left neural forami nal narrow ing at L5-S1. 2. There is prior freight sales broker ior fusion and ojselyn ctomie s extend ing from T10 throug h the sacrum . Interp reted By: Charlene ochoa MD Electr onical ly Signed By: Charlene ochoa MD on 05/21/20 25 10:27 AM [email or web address] [facility] [address] [place], [address], 05/23/2025 12:47:59 Result Notes Documentation Provider Name and Address Organization Details Recorded Time Xr, Lumbosacral Spine, 4 Or More View : [facility] [address] [place] [address] Patient Name: NIKO JEREZ Patient : 1945 Patient Ordering Provider: ZEHRA LARIOS EXAM DATE: 04/24/2025 EXAM: XR LUMBAR SPINE AP/LAT/FLEX/EXT CLINICAL INFORMATION: Back pain. IMAGES PROVIDED: AP, lateral and coned-down views of the lumbar spine with additional lateral views in flexion and extension. COMPARISON: None. FINDINGS: Vertebral body heights are normal. Previous posterior fusion extending from T10 to the sacrum. Cannulated screws traverse both SI joints. No screw fracture or indication of loosening is detected. No subluxation is detected. No instability is seen on flexion or extension. No radiographic evidence of injury is noted. IMPRESSION: Uncomplicated appearing thoracolumbar sacral fusion. No instability. Interpreted By: Teofilo Rao MD A LARIOS PA-C [address] [place] [address], [phone] 04/25/2025 10:05:53 Mri, Thoracic Spine, W/o Contrast : [facility] [address] [place] [address] Patient Name: NIKO JEREZ Patient : 1945 Patient Ordering Provider: ZEHRA LARIOS EXAM DATE: 05/17/2025 EXAM: MR THORACIC W/O CONTRAST HISTORY: 79-year-old female with chronic mid and low back pain radiating to the left hip. COMPARISON: None. FINDINGS: There is a probable old compression fracture of the T10 vertebral body. There is osseous fusion at T9-T10. There is posterior fusion extending from T10 through the lumbar spine. There is paramagnetic artifact from the pedicle screws and posterior fusion hardware. There is focal kyphosis at T9-T10 and kyphosis of the upper thoracic spine. There is no acute fracture. There is mild anterior marginal osteophytic spurring. No pathologic lesion is identified in the thoracic spine. The visualized spinal cord appears normal. There is moderate posterior spurring at T9-T10. There is mild central canal narrowing at this level. There is minimal neural foraminal narrowing. There are minimal disc bulges in the remaining levels of the thoracic spine. There is no central canal stenosis or neural foraminal stenosis. There is no paraspinous soft tissue abnormality. The paraspinous musculature is symmetric. IMPRESSION: 1. There is osseous fusion at T9-T10 with mild central canal narrowing at this level. There is no compression fracture of the T10 vertebral body with osseous fusion at T9-T10. 2. There is posterior fusion extending from T10 through the lumbar spine. Interpreted By: Hans Rudolph MD ANNA REAL MD [address] [place] [address], [phone] 05/23/2025 12:48:07 Mri, Lumbar Spine, W/o Contrast : [place] [address] Patient Name: NIKO JEREZ Patient : 1945 Patient Ordering Provider: ZEHRA LARIOS EXAM DATE: 05/17/2025 EXAM: MR LUMBAR W/O CONTRAST HISTORY: 79-year-old female with chronic mid and low back pain radiating to the left hip. COMPARISON: Radiograph dated 04/24/2025 and MRI dated 08/23/2018 FINDINGS: There is posterior fusion and laminectomies extending from T10 through the sacrum. There is paramagnetic artifact from the pedicle screws and posterior fusion hardware. There are prior discectomy and interbody graft at L1-L2, L2-L3 and L5-S1. There is a fluid collection in the laminectomy defect. There is grade 1 anterior listhesis of L4 on L5. There is no fracture. There is mild anterior marginal osteophytic spurring. No pathologic lesion is identified in the lumbar spine. The conus medullaris is normal in appearance at the T12-L1 level. T12-L1: There is mild endplate spurring. There is no central canal narrowing or neural foraminal narrowing. L1-L2: There is a minimal disc bulge and mild endplate spurring. There is no central canal stenosis. There is no neural foraminal stenosis. L2-L3: There is minimal endplate spurring. There is no central canal stenosis. There is no neural foraminal stenosis. L3-L4: There is a mild disc bulge and minimal endplate spurring. There is no central canal stenosis. There is mild right neural foraminal stenosis. L4-L5: There is mild endplate spurring. There is no central canal stenosis. There is mild bilateral neural foraminal stenosis. L5-S1: There is soft tissue extending into the left neural foramen and minimal endplate spurring. There is no central canal stenosis. There is moderate/severe left and minimal right neural foraminal stenosis. There is severe atrophy of the paraspinous musculature. IMPRESSION: 1. There is moderate/severe left neural foraminal narrowing at L5-S1. 2. There is prior posterior fusion and laminectomies extending from T10 through the sacrum. 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 Jovita (Vani) Rdoy [facility] 9 12:07:45 History of respirat ory disease 725675156 Active Jovita (Vani) Rody [facility] 9 12:07:45 Degenera tive disorder of macula 524404309 Active Jovita Wright) Rody [facility] 9 12:07:46 Backache 565986667 [facility] 9 12:07:46 Disorder of thyroid gland 46831021 Active [facility] (Vani) [facility] 9 12:07:46 Kidney stone 12175849 Active Jovita (Vani) [facility] 9 12:07:46 Bilatera l cataract s 07578201 Active Jovita (Vani) [facility] 9 12:07:46 Pancreat itis 47009923 Active Jovita (Vani) Croley [facility] 9 12:07:46 Chronic diarrhea 384791347 Active Jovita (Vani) Croley [facility] 9 12:07:46 Anemia 561610392 Active Jovita (Vani) Croley [facility] 9 12:07:46 Coronary arterios clerosis 19919138 Active Jovita (Vani) Croley [facility] 9 12:07:46 Impairme nt of balance 860636812 Active Jovita (Vani) Croley [facility] 9 12:07:46 Urinary tract infectio us disease 71856343 Active Jovita (Vani) Croley [facility] 9 12:07:46 Glaucoma 96892081 Active Jovita (Vani) [facility] 9 12:07:46 Rheumato id arthriti s 10018294 Active Jovita (Vani) Croley [facility] 9 12:07:46 Neck pain 39267661 Active Jovita (Vani) [facility] 9 12:07:46 Spinal stenosis 97347944 Active Jovita (Vani) Croley [facility] 9 12:07:46 Migraine 92660909 Active Jovita (Vani) Rody null, [facility] 9 12:07:46 Wears glasses 915945221 Active Jovita (Vani) Rody null, [facility] 9 12:07:46 Sinusiti s 65130731 Active [facility]Vani) [facility] 9 12:07:46 Peripher al nerve disease 408993669 Active Jovita (Vani) [facility] 9 12:07:46 Gastroes ophageal reflux disease 842607774 Active Jovita (Vani) [facility] 9 12:07:46 Deep venous thrombos is 845082289 Active Jovita (Vani) [facility] 9 12:07:46 Hyperlip idemia 87427336 Active Jovita (Vani) Rody [facility] 9 12:07:46 Acute poliomye litis 173384609 Active 1954 Jovita (Vani) Rody [facility] 9 12:07:46 Systemic lupus erythema tosus 93151373 Active 1989 Jovita (Vani) [facility] 9 12:07:46 Prolapse d lumbar interver tebral disc 965651069 Active 2014 From Automate d Load;Pro vider: Eloy De Leon; Status: Active Jovita (Vani) Rody [facility] 9 12:07:46 Low back pain 850354806 Active 2014 Provider : Eloy De Leon; Status: Active Jovita [facility]Vani) [facility] 9 12:07:46 Spinal stenosis of lumbar region 77202587 Active 2014 From Automate d Load;Pro vider: Eloy De Leon; Status: Active [facility]Vani) [facility] 9 12:07:46 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 97141392051 07 Active 2014 From Automate d Load;Pro vider: Neil Pittmanil;St atus: Active [facility] 9 12:07:46 Abdomina l pain 12142771 Active 2014 From Automate d Load;Pro vider: Neil Pittmanil;St atus: Active [facility] 9 12:07:46 Pain 50370777 Active 2014 From Automate d Load;Pro vider: Josh Pittman;St atus: Active Jovita (Vani) Rody [facility] 9 12:07:45 Blood in urine 35955555 Active 2014 From Automate d Load;Pro vider: Josh Pittman;St atus: Active Jovita (Vani) Rody [facility] 9 12:07:46 Pain in right knee Active 2014 From Automate d Load;Pro vider: Josh Pittman;St atus: Active Jovita (Vani) Rody [facility] 9 12:07:46 Hyperten sive disorder 40857188 Active 2014 From Automate d Load;Pro vider: Josh Pittman;St atus: Active Not [facility] 6 23:35:13 Idiopath ic osteoart hritis 422676229 Active 2014 From Automate d Load;Pro vider: Herminia Orr;Status : Active Jovita (Vani) Rody [facility] 9 12:07:45 Pain in left knee Active 2014 From Automate d Load;Pro vider: Malu Luna;S tatus: Active Jovita (Vani) Rody [facility] 9 12:07:46 Migraine without aura, not refracto ry 363265038 Completed 201506/07/2019 From Automate d Load;Pro vider: Caren Reddy;St atus: Active Susan Colon [facility] 9 12:53:55 Lumbosac ral radiculo bob 9371595 Active 2015 From Automate d Load;Pro vider: Eloy De Leon; Status: Active Jovita (Vani) Rody [facility] 9 12:07:46 Chronic headache disorder 583393601 Active 2018 Susan Colon [facility] 9 12:53:51 Neuropat hy 568294615 Active 2019 Jovita (Vani) Rody [facility] 0 12:46:05 Memory impairme nt 824407299 Active 2019 Jovita (Vani) Rody [facility] 0 12:46:19 Vertigo 665855612 Active 2020 Jovita (Vani) Rody [facility] 1 16:06:43 Parkinso n's disease 78134514 Active 2024 NEENA DEVI DO [address] [place], [place], [address] [place] [address] 5 11:21:53 Abnormal gait due to muscle weakness 716309650 Active 2024 NEENA DEVI DO [address] [place], [place], [address] [place] [address] , [facility] 5 11:21:53 Idiopath ic peripher al neuropat hy 82215261 Active 2024 NEENA DEVI DO [address] [place], [address] [place] [address] 5 11:02:22 Notes:Some problems listed i n Document: #[id number] could not be added to this patient's chart. Please review this document and add these problems to the patient's chart manually as needed. Problem Notes None recorded. Procedures Surgical History Date Name Laterality Status Provider Name and Address Organization Details Recorded Time 04/09/20 Caudal MEGAN Addie completed JULIANNA REAL MD [address] [place], [address], [facility] 04/09/2025 17:22:39 12/06/19 25 total knee replacement completed Bakari Moe [facility] 04/24/2025 10:45:14 11/14/19 25 dental surgical procedure completed Catrina Us [facility] 12/05/2024 11:13:30 09/18/20 24 Caudal MEGAN Addie completed JULIANNA REAL MD [address] [place] [address] [place], [address], [facility] 09/18/2024 14:11:05 07/27/20 24 Joint Injection, Knee - Addie completed JULIANNA REAL MD [address] [place] [address] [place], [address], [facility] 07/27/2024 13:58:38 07/25/20 24 Post Void Residual; Ultrasound completed FEDERICO NATION APRN [address] [place], [address], [facility] 07/25/2024 11:36:57 05/16/20 24 Caudal MEGAN Addie completed JULIANNA REAL MD [address] [place], [address], [facility] 05/16/2024 12:49:14 04/20/20 24 Joint Injection, Knee - Addie completed JULIANNA REAL MD [address] [place], [address], [facility] 04/20/2024 11:47:04 02/08/20 24 total knee replacement completed Shayy Pathak [facility] 05/16/2024 10:52:57 01/31/20 24 Joint Injection, Knee - Addie completed JULIANNA REAL MD [address] [place], [address], [facility] 01/31/2024 15:34:35 01/20/20 24 Post Void Residual; Ultrasound completed RADHA JOHNSTON MD [address] [place], [address], [facility] 01/20/2024 11:50:18 01/11/20 24 Caudal MEGAN Addie completed JULIANNA REAL MD [address] [place], [address], [facility] 01/11/2024 13:44:46 11/23/19 24 Post Void Residual; Ultrasound completed Chaparrita Gómez [facility] 11/23/2023 11:05:50 10/21/19 24 Joint Injection, Knee - Addie completed JULIANNA REAL MD [address] [place], [address], [facility] 10/21/2023 13:59:42 10/07/19 Caudal MEGAN Addie completed JULIANNA REAL MD [address] [place], [address], [facility] 10/07/2023 12:03:23 08/31/20 23 Trigger Point Injections - Addie completed ZEHRA LARIOS PA-C [address] [place], [address], [facility] 08/31/2023 15:18:07 07/12/20 Lumbar Transforaminal Epidural Injection - Addie completed JULIANNA REAL MD [address] [place], [address], [facility] 07/12/2023 12:44:44 01/28/20 Monovisc Injection completed HEAVEN GRAHAM PA-C [address] [place], [address], [facility] 02/09/2023 13:19:06 08/06/20 LIGATION OR BIOPSY, TEMPORAL ARTERY (SURG) completed Iraida Beyer [facility] 08/07/2020 14:34:42 Back Surgery completed Kati Bledsoe [facility] 05/10/2018 14:27:13 Shoulder joint surgery completed Kati Bledsoe [facility] 05/10/2018 14:27:30 Tubal Ligation completed Natalia Miller [facility] 11/17/2023 11:49:05 placement of stent in cardiac conduit completed Natalia Miller [facility] 11/17/2023 11:49:20 Shoulder joint surgery completed Shayy Pathak [facility] 05/16/2024 10:52:23 Imaging Results None recorded. Procedure Notes None recorded. Medical Equipment None Reported. Allergies Allergen ID Allergen Name Allergen Category Reaction Reaction Severity Criticality Documentation Date Start Date Code Code System Note Provider Name and Address Organization Details Recorded Time 488664 Compazine medicatio n Not available Not available Not available 08/13/2016201254 6 RxNorm Comme nt: Creat ed By: Deny tamayo Date: 07/19 10:31 :05 AM; [place] Miller [facility] 3 13:19:43 547781 acetamino phen / oxycodone medicatio n hallucina tions Not available Not available 08/13/20162012 73022 3 RxNorm Natalia Paul [facility] 3 13:19:26 910867 aspirin medicatio n Not available Not available Not available 08/13/20162015 1191 RxNorm Comme nt: Creat ed By: Owen coffman Date: 2015 2:57: 49 PM; [place] Miller [facility] 3 10:56:39 646290 prochlorp erazine medicatio n seizure Not available Not available 06/07/2019 8704 RxNorm Paddy zine Natalia Miller [facility] 3 13:19:09 782534 aspirin medicatio n Not available Not available Not available 06/07/2019 1191 RxNorm 'Rhina l funct ion tests abnor mal'. Natalia Miller [facility] 3 13:19:59 611035 baclofen medicatio n other Not available Not available 05/03/2025 1292 RxNorm High B/P, shaky Catrina York [facility] 5 11:41:26 Medications Name Sig Start Date Stop Date [...] to the affected area 3-4 times daily 2024 active Not Available Not Available [...] to the affected area 3-4 times daily active Not Available Not Available No t Available amantadin e HCl 100 mg tablet Take [...] Not Available fluconazo le 150 mg tablet 09/21 /2023 completed Not Available Not Available Not Available [...] Not Available Not Available No t Available Medrol (Edu) 4 mg tablets in a dose pack as directed 2024 active Not Available Not Available Not Avai lable prednison e 20 mg tablet TAKE ONE [...] Not Available Not Available No t Available baclofen 10 mg tablet Take 1 tablet 3 times a day by oral route as needed for 30 days. 2024 active Not Available Not Available Not Avai lable timolol maleate 0.25 % eye drops Instill [...] Not Available colchicin e 0.6 mg tablet TAKE ONE TABLET BY MOUTH EVERY DAY 2024 active Not Available Not Available Not [...] completed Not Available Not Available Not Available diazepam 5 mg tablet Take 2 tablets as needed by oral route. 2024 active [facility]: [phone] [id number] Not Available Not Available Not Available metoclopr [...] 93 % 93 % 102/74 mm[Hg] Natalia Solanolas [facility] 5 10:47:22 Date Recorded Body height Body mass index (BMI) Body weight Respiratory rate Heart rate Oxygen saturation Oxygen saturation in Arterial blood by Pulse oximetry Systolic And Diastolic Provider Name and Address Organization Details Last Updated DateTime 5 162.56 cm 36 kg/m2 89602.4 g 16 /min 75 /min 93 % 93 % 108/50 mm[Hg] Catrina Us [facility] 5 11:09:04 Date Recorded Body height Oxygen saturation Oxygen saturation in Arterial blood by Pulse oximetry Heart rate Systolic And Diastolic Provider Name and Address Organization Details Last Updated DateTime 5 162.56 cm 95 % 95 % 69 /min 140/72 mm[Hg] Bakari Moe [facility] 5 10:52:36 Date Recorded Body height Provider Name an d Address Organization Details Last Updated DateTime 06/06/2025 162.56 cm Octavia Begum [facility] in 06/06/2025 09:09:05 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 Question Answer Notes LastModified by Organizat ion Details LastModified Time Tobacco Smoking Status Former Smoker Kati Johnsonholz [facility] 05/10/2018 14:27:07 How Much Tobacco Do You Chew? None [email or web address] Information not available 06/07/2019 Which Illicit Or Recreational Drugs Have You Used? No [email or web address] Information not available 06/06/2020 Marital Status Junior [email or web address] Informatio n not available 06/07/2019 What Was The Date Of Your Most Recent Tobacco Screening? 04/24/2025 [email or web address] Information not available 04/24/2025 What Is Your Relationship Status? [email or web address] Information not available 08/31/2024 How Much Tobacco Do You Smoke? No [email or web address] Information not available 06/07/2019 Sex: Unknown Functional Status Question Answer Note LastModified by Organizat ion Details LastModified Time What is your level of alcohol consumption? None [email or web address] Information not available 06/07/2019 Do you or have you ever used smokeless tobacco? Never used smokeless tobacco [email or web address] Information not available 06/07/2019 Are you currently employed? No [email or web address] Information not available 08/31/2024 What is your occupation? retired [email or web address] Information not available 06/07/2019 Do you or have you ever used e-cigarettes or vape? Never used electronic cigarettes Information not available 06/07/2019 Mental Status None [...] Osteoporosis/Osteopenia Y Stomach trouble Y Heart Attack ([place]) N Anxiety Disorder Y Diabetes N Bleeding Disorder N Arthritis Y Hearing Loss [...] virus, quadrivalent, preservative 8 completed Wendie Rozina [facility] 06/07/2019 11:53:21 pneumococcal, unspecified formulation 7 completed Wendie Rozina [facility] 06/07/2019 11:53:21 Influenza, split virus, quadrivalent, preservative 0 completed Jovita (Vani) Rody [facility], [facility] 06/06/2020 12:05:59 SARS-COV-2 (COVID-19) vaccine, UNSPECIFIED 1 completed Marebernardo Bledsoe [facility] 03/18/2021 09:39:59 SARS-COV-2 (COVID-19) vaccine, UNSPECIFIED 1 completed Mare Bledsoe [facility] 03/18/2021 09:40:02 Influenza, split virus, quadrivalent, preservative 0 completed Marebernardo Bledsoe [facility] 03/18/2021 09:40:14 Past Encounters Encounter ID Performer Location Encounter Start Date Encounter Closed Date Diagnosis/Indication Diagnosis SNOMED-CT Code Diagnosis ICD10 Code Diagnosis IMO Codes Diagnosis Note [id number] MANSOOR MARTIN PA-C [facility] [address] [place] [address] 05/10/2018 13:57:03 05/16/2018 15:24:48 Lumbar radiculopathy [id number] M54.16 S/p multiple back surgeries listed above with 1 month of worsening chronic LBP which radiates into to L>R LEs. She reports the anterior groin pain is worse than the posterior thigh pain. Lumbar MRI wo contrast was performed on 04/12/18, but she did not bring her CD with her today. Per the radiologis t report there is prominent posterior facet and ligament flavum hypertroph y markedly narrowing the spinal canal with prominent central canal stenosis at L1-2. There is also a moderate size seroma posterior to L3 and L4 likely grossly stable since 2017 CT. We will have our office obtain a copy of the CD. Once Dr. De Leon reviews the MRI, we will call her with final recommenda tions. We will refer her to PT in the meantime as she would likely benefit from further nonoperati ve management . We will order A/P and lateral lumbar xrays to evaluate the hardware. We will plan for tentative follow up with Dr. De Leon in 3 months. She knows to call with any questions or concerns. The patient was seen and examined by Dr. De Leon and myself. He agrees with the plan as stated above. [id number] ELOY DE LEON MD [facility] [address] [place] [address] 07/06/2018 13:09:22 07/07/2018 13:18:19 [id number] ELOY DE LEON MD [facility] [address] [place] [address] 08/02/2018 10:18:29 08/02/2018 11:50:58 Postoperative care [id number] Z48.89 -X-rays were reviewed. Stable hardware L1 to the sacrum with iliac fixation. The wound is healed well. Expect her to graduate from the walker over the next week. Continue home exercises as well as physical therapy to assist in her recovery. Plan to see her back in 3 months with x-rays of the lumbar spine. [id number] ELOY DE LEON MD [facility] [address] [place] [address] 08/10/2018 09:25:42 09/08/2018 11:23:23 [id number] MANSOOR MARTIN PA-C [facility] [address] [place] [address] 08/23/2018 11:04:23 08/23/2018 15:12:31 Postoperative care [id number] Z48.89 Mrs. Jerez with a history of lupus is s/p PO EXT. OF FUSION TO L1, ILIAC BOLTS 06/23/[address] Eloy De Leon and is here today for a wound check. The lumbar incision appears to be healing by secondary intention without any signs of infection today in the office. We will order a lumbar MRI with and without contrast to evaluate. We will provide her with a prescripti on for Nevis 7.5 for her to use sparingly for pain control. Her rheumatolo gist recently started her on prednisone . We will order a repeat CRP and ESR as her labs from 08/16/18 which were significan t for a C-reactive protein of 13.2 and a sedimentat ion rate of greater than 120. We will have her follow up in 2 weeks for a wound check. She knows to call with any complaints of increased pain or fevers. All of her questions were answered and she appears happy with the plan. The patient was seen and examined by Dr. De Leon and myself. He agrees with the plan as stated above. [id number] ALISHA LYON PA-C [facility] [address] [place] [address] 09/01/2018 11:29:43 09/01/2018 15:47:03 Postoperative care [id number] Z48.89 Was no expressibl e fluid from the dehiscence to her inferior portion of her incision. It does not appear overtly infected. I does appear to be healing from secondary intentions . I did put a wet-to-dry dressing into the other wound. I educated both the patient and called the daughter Linette with dry dressings over the weekend changing the dressing twice a day to daily. They understand to use of sterile saline and not tap water. Also encouraged him to continue use the Betadine swab in the wound. We will have patient return to clinic on Wednesday for another wound check. Patient agrees with this plan. [id number] SAMY BRASHER PA-C [facility] [address] [place] [address] 09/07/2018 11:06:09 09/14/2018 12:43:55 Wound dehiscence 904546703 T81.30XD Wound appears to be healing well under secondary intention. There is good granulatio n tissue forming in the wound bed. She is not having any systemic signs of infection. Wound does not look grossly infected. No longer needs to continue to pack this. She can continue to clean it daily with Betadine and dressed with a nonocclusi ve dressing. Plan to see her back in a couple of weeks for another wound check. Again we will probably continue to follow this wound regularly until it has closed. She knows call the office in the meantime with any questions or concerns. She is happy with this plan. [id number] ALISHA LYON PA-C [facility] [address] [place] [address] 09/27/2018 10:51:04 10/11/2018 09:40:03 Wound dehiscence [id number] T81.30XD Patient's inferior portion of her incision appears to be healing from secondary intention. There is a pink granulatio n tissue as well as fibrinous exudate seen in the wound bed. There is no signs of overt infection. The patient is overall doing well. Reassured the patient that this will continue to heal with time. We discussed proper aberrant dressing changes as well as keeping the wound clean. Have her return to clinic in about 1 month for a regular postoperat kyrie check with x-rays prior to that appointmen t. We will try to arrange this appointmen t to coincide with her other doctors appointmen ts as she has difficulty with transporta tion. Patient agrees with this plan [id number] ALISHA LYON PA-C [facility] [address] [place] [address] 10/04/2018 09:46:11 11/07/2018 11:10:48 [id number] ELOY DE LEON MD [facility] [address] [place] [address] 11/02/2018 09:02:55 11/03/2018 11:15:36 Postoperative care [id number] Z48.89 -X-rays were performed prior to her visit. These are stable. The wound continues to heal slowly. She does have a large potential space from her previous operations where fluid is likely accumulati ng and therefore is expressed occasional ly out of the wound. No ongoing signs of infection. Plan to see her back in 3 months. Continue to monitor, tend to the wound as previously instructed . [id number] ALISHA LYON PA-C [facility] [address] [place] [address] 01/24/2019 13:13:11 01/24/2019 13:58:28 Postoperative care [id number] Z48.89 [facility] lumbar x-rays P ostoperati ve changes from L1 iliac fusion. No evidence of hardware issues or malalignme nt. 73-year-ol d female status post L1 iliac extension of fusion 06/23/[address] De Leon. Her lumbar wound continues to heal from secondary intention. The patient feels that it is slowly improving. Instructed her to continue wound care as previously instructed . We will have her return to clinic in 3 months to continue to follow the wound healing. Should she develop issues prior to that appointmen t she knows she can call our office with any questions. Patient happy with this plan. [id number] ELOY DE LEON MD [facility] [address] [place] [address] 05/24/2019 14:43:15 05/25/2019 13:54:57 History of lumbar fusion [id number] 9106 Z98.1 -The patient returns for routine care. She is at her normal state of health. Ambulating reasonably well with the use of a cane. She is having some referred hip pain with which is currently being managed conservati vely. Her last x-rays were in January. We'll plan a routine follow-up in 4 months with x-rays. I'm happy with the way the wound has healed. No further treatments are necessary. She takes steroids chronicall y and any type of further surgery would have extremely high risk of wound problems. Delayed he aling of surgical wound [id number] Y83.9 [id number] CAREN REDDY MD [facility]UR[facility] [address] [place] [address] 06/07/2019 11:50:57 06/07/2019 12:49:46 Chronic headache disorder 187641372 G43.721 [id number] ELOY DE LEON MD [facility] [address] [place] [address] 09/27/2019 10:55:54 10/02/2019 09:40:25 History of lumbar fusion [id number] 9106 Z98.1 -No new issues are reported today. Overall, the patient's clinical status is stable. X-rays were performed prior to revisit. Stable hardware L1 through the iliac fixation screws. Continue her current treatment regimen. Her hip has been worked up in the past. Currently being treated for bursitis. We will see her back in 9 months with an x-ray. Likely, release her from our care afterwards . [id number] CAREN REDDY MD NEUROLOGY [facility] [address] [place] [address] 06/06/2020 11:48:09 06/06/2020 12:54:17 Chronic headache disorder [id number] G43.719 Neuropathy 794219329 G62 .9 Memory impairment 745489 006 R41.3 Paresthesia 23297660 R20 .2 Depressive disorder 3548 9007 F32.9 Caregiver stress syndrome 982824484 F43.8 [id number] ELOY DE LEON MD [facility] [address] [place] [address] 06/12/2020 11:16:35 06/13/2020 11:46:25 History of lumbar fusion [id number] 9106 Z98.1 -No new issues are reported today. Overall, the patient's clinical status is stable. X-rays were performed prior to revisit. Stable hardware L1 through the iliac fixation screws. Continue her current treatment regimen. Imaging is reassuring . This informatio n was communicat ed to the patient. We will try light term patches to assist in her low back pain. Prescripti on for gabapentin 300 mg 5 times a day. Refills as necessary. Follow-up 1 year x-rays. Chronic low back pain 27 7069738 M54.5 [id number] CAREN REDDY MD NEUROLOGY [facility] [address] [place] [address] 07/30/2020 10:39:46 07/30/2020 11:13:47 Chronic headache disorder 407469443 G43.719 Counseling [id number] Z71 .89 [id number] CAREN BETANCOURT MD [place] [facility] [address] [place] [address] 08/02/2020 10:41:35 08/02/2020 12:01:01 Allergic rhinitis 88036672 J30.9 - Currently on immunother apy (SCIT) in [place] with Dr. Chen - 08/02/2020 Bilateral tinnitus 97363 70400 102 H93.13 Temporal arteritis 41657 0008 M31.6 - Possible - 08/02/2020 Chronic sinusitis 334077 00 J32.9 - History of; with sinus headaches - 08/02/2020 Systemic l upus erythematosus 20987682 M32.9 - History of; followed by Dr. Twila Betancourt - 08/02/2020 Visual disturbance 19884 001 H53.9 - Ongoing for 2-3 weeks; left > right - 08/02/2020 Pain in face 80819310 R5 1.9 - Left sided facial/ temporal pain - 08/02/2020 [id number] CAREN BETANCOURT MD [place] [facility] [address] [place] [address] 08/16/2020 10:20:40 08/16/2020 14:02:17 Pain in face 81153954 R51.9 - Left sided facial/ temporal pain Systemic l upus erythematosus 80960030 M32.9 - History of; followed by Dr. Twila Betancourt - 08/02/2020 [id number] BOBBY KEL[place] [facility] [address] [place] [address] 10/18/2020 10:54:14 10/21/2020 12:19:44 Lumbar radiculopathy 388598729 M54.16 patient is a 75-year-ol d female with a History of an L1 and iliac fusion, last surgery being on 06/23/18. She presents today to discuss new lumbar pain meds and present for the past 3 months on and off. patient called us 10 days ago with complaints of this severe back pain that was refractory to over-the-c ounter medication s. We ordered the lumbar MRI as a result. We discussed the patient's results with her as outlined below. The patient does have a new large disc herniation adjacent level of her previous fusion. Discussed with patient that treatment of this would be an extension of fusion up to T10. At this time patient is currently not having any pain whatsoever . She does not wanted to proceed with surgery until absolutely necessary. we will see the patient back in 6 weeks for a follow-up. In the meantime we will be getting a CT lumbar without contrast due to patient's x-ray showing some possible migration of the iliac bolts. Patient is to call us in the meantime if her symptoms recur. The patient's follow-up if she is experienci ng a recurrence of symptoms we will discuss surgery more seriously. Patient is to call for any questions and she was happy with this plan. Patient had lumbar MRI with and without contrast performed on 10/09/20 at [facility]. She brought the disc with her.she also had AP and lateral lumbar x-rays performed -did show a new large broad-base d disc herniation at T12-L1 with some inferior migration. Central canal stenosis as a result. -x-rays show possible migration of iliac bolts. [id number] BOBBY KEL[place] [facility] [address] [place] [address] 12/04/2020 12:57:53 12/05/2020 08:44:51 Lumbar radiculopathy [id number] M54.16 patient is a 75-year-ol d female with a History of an L1 and iliac fusion, last surgery being on 06/23/18. She presents today to discuss surgery in regards to new lumbar pain with onset 4 months ago.the patient's pain is lumbar midline and radiates to the anterior and lateral right thigh with some associated foot pain on the right as well. at the patient's last appointmen t we discussed her MRI findings with her as outlined below.The patient does have a new large disc herniation adjacent level of her previous fusion. Discussed with patient that treatment of this would be an extension of fusion up to T10 with possible addition of BMP to the right iliac bolt due to some lucency result on x-ray. Dr. De Leon and spoke to the patient and her again at this time for the surgery in length. We discussed benefits, risks, downtime, postop care. The patient will need some time to find someone to help take care of her after she has surgery. When she can get this set up she will be gone us to schedule surgery. We have retained her disc with imaging on it until her surgery scheduled. She knows to call for any questions and is happy with this plan. The patient was seen by myself and Dr. De Leon who was part of the decision-mike xiao as outlined above Patient had lumbar MRI with and without contrast performed on 10/09/20 at [facility]. She brought the disc with her.she also had AP and lateral lumbar x-rays performed -did show a new large broad-base d disc herniation at T12-L1 with some inferior migration. Central canal stenosis as a result. -x-rays show possible migration of iliac bolts. CT of the lumbar spine without contrast performed on 10/22/20. T his was ordered to evaluate the status of the hardware. The right iliac bolt was not as impressive on this image as it was on the x-ray. There is no significan t findings of hardware shifted or migration. [id number] ELOY DE LEON MD SURGERY SCHEDULE [address] [place] [id number] 12/27/2020 09:20:18 12/27/2020 10:23:55 [id number] [facility] [address] [place] [address] 01/10/2021 14:28:04 01/13/2021 10:47:09 [id number] ELOY DE LEON MD NEUROSURG [facility] CLOSED [address] [place] [address] 01/29/2021 11:11:00 01/31/2021 15:07:08 Postoperative care [id number] Z48.89 -The patient underwent a extension of fusion to T10. She is making appropriat e progress at 1 month. Continue therapy. Anticipate 6 1 2 month recovery. Plan x-rays 3 4 months. Contact us earlier if needed. She will need to be followed for 12 1 8 months after surgery to confirm no developmen t of pseudoarth rosis. [id number] CAREN REDDY MD NEUROLOGY SB CLOSED [address] [place] [id number] 03/18/2021 09:36:45 03/18/2021 12:24:34 Parkinsonism 45698394 G20 Resting tremor 46347697 G25.2 Parkinsoni an flexion posture 997761237 R29.3 Abnormal gait 39834303 R 26.9 Bradykinesia 592151164 R 25.8 [id number] BOBBY ALEJANDRO PA-C NE[facility]URG [facility] CLOSED [address] [place] [address] 04/30/2021 11:02:31 05/01/2021 13:33:55 Postoperative care [id number] Z48.89 Patient is a 75-year-ol d female status post Extension of fusion to T10 on 12/24/[address] De Leon.Conrado wyatt presents for her second postoperat kyrie appointmen t. Patient is doing very well at this time. Still gets occasional soreness in the back but is relieved of the severe pain she had prior to surgery.Trinidad herbert has been starting to walk and exercise more at home which has benefited her. I told her that she does not need to wear her brace at all times and should only use it if she is ambulating for distances if she feels that she still needs it. We did discuss sending her to formal physical therapy but she said she has got more benefit out of exercising with her son at home. I encouraged her to continue doing so. Patient is moving along as expected postoperat ively. Dr. De Leon did want her to be followed for this procedure for 12-18 months after to make sure she does not develop pseudoarth rosis or hardware failure. We will see her again in 3-4 months with another set of AP lateral lumbar x-rays. She had AP lateral lumbar x-rays today at the [facility] wed stable placement of hardware with no evidence of loosening or complicati on [id number] CAREN REDDY MD NEUROLOGY SB CLOSED [address] [place] [address] 05/12/2021 15:30:37 05/12/2021 16:41:16 Vertigo 569491265 R42 Memory impairment 512162 006 R41.3 Neuropathy 703171171 G62 .9 Chronic he adache disorder 080360364 G43.719 Tremor 87829596 R25.1 [id number] CAREN REDDY MD NEUROLOGY SB CLOSED [address] [place] [address] 06/02/2021 08:31:48 06/02/2021 10:10:55 Parkinsonism 57084634 G20 Abnormal g ait due to impairment of balance 428209478 R26.89 Resting tremor 76377121 G25.2 [id number] CAREN REDDY MD NEUROLOGY SB CLOSED [address] [place] [address] 06/23/2021 11:32:11 06/23/2021 13:06:22 Memory impairment 459193084 R41.3 Neuropathy 459481504 G62 .9 Chronic he adache disorder 199952468 G43.139 [id number] BOBBY ALEJANDRO PA-C [facility] CLOSED [address] [place] [address] 10/29/2021 13:58:39 10/30/2021 09:32:44 Postoperative pain 923571602 G89.18 Patient is a 76-year-ol d female with history of multiple lumbar fusions with most recent being 12/24/2020 which was an extension of previous fusion to T10. Patient is doing extremely well at this time. She is having some back pain and some pain in her feet. She is not having any complaints in regards to our procedure and is actually very happy with the results thus far. Patient is doing as expected. Because she had such a large construct and complex procedure with previous complicate d postoperat kyrie course, we would like to see her back for 1 final visit in 6 months with a final set of AP lateral lumbar x-rays. If she is still doing well at that time we will release her from our care as it pertains to this procedure. She knows to call in the meantime with any questions. Patient seen by myself in Dr. Felton today AP lateral lumbar/tho racic x-rays today at the [facility] stable placement of hardware with no evidence of loosening or complicati on [id number] NAHUN DUDLEY PA-C [facility] CLOSED [address] [place] [address] 04/27/2022 10:43:02 04/27/2022 11:33:34 Lumbar spondylosis 893309321 M47.896 [id number] CAREN REDDY MD NEUROLOGY SB CLOSED [address] [place] [address] 11/16/2022 15:46:31 11/17/2022 13:29:20 Parkinson's disease 81320900 G20 Abnormal g ait due to muscle weakness 715884755 M62.81 Headache disorder 083446 009 R51.9 Neuropathy 140868308 G62 .9 [id number] HEAVEN GRAHAM PA-C [facility] CLOSED [address] [place] [address] 01/27/2023 10:53:28 01/27/2023 12:20:04 Arthritis of left knee joint 6153243510 552446 M13.862 Assessment : Left knee arthritis Plan: I believe she would be a candidate to speak to our colleagues in joint replacemen t, I gave her a Monovisc injection today which she tolerated well we will see how long this lasts before we talk about a referral to them. Order sent to [facility] for physical therapy. Follow-up as needed. [id number] CAREN REDDY MD NEUROLOGY SB CLOSED [address] [place] [address] 1 02/08/2023 10:48:27 02/08/2023 12:50:22 Parkinson's disease 95755669 G20 Memory impairment 759232 006 R41.3 Abnormal g ait due to muscle weakness 732040318 M62.81 [id number] CAREN REDDY MD NEUROLOGY SB CLOSED [address] [place] [address] 1 06/10/2023 13:13:25 07/19/2023 11:39:28 Abnormal gait due to muscle weakness 727489767 M62.81 [id number] JULIANNA REAL MD PAIN MEDICINE CLOSED [address] [place] [address] 1 07/12/2023 10:09:19 07/12/2023 14:09:00 Displacement of lumbar intervertebral disc 7710332139 M51.26 Lumbar radiculopathy 128 497837 M54.16 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 77918481 M46.1 [id number] JULIANNA REAL MD [facility] PROF[facility] NAL [facility]ARG[facility] [address] [facility] [address], [address] [place] [address] 1 07/12/2023 11:41:33 07/14/2023 12:56:05 Lumbar radiculopathy 829107830 M54.16 [id number] ZEHRA LARIOS PA-C PAIN MEDICINE CLOSED [address] [place] [address] 08/04/2023 11:23:36 08/05/2023 04:23:08 Lumbar radiculopathy 573971172 M54.16 Displaceme nt of lumbar intervertebral disc 3150890119 M51.26 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 Real. She is very happy with the results. She will follow-up with us on an as-needed basis. 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 65405030 M46.1 Greater tr ochanteric pain syndrome of left lower limb 7485745217 1033998 M70.62 [id number] JULIANNA REAL MD [facility] [address] [facility], [address] [place] [address] 10/07/2023 10:40:06 10/07/2023 14:57:31 Lumbar radiculopathy 978992189 M54.16 [id number] JULIANNA REAL MD [facility] [address] [facility], [address] [place] [address] 10/21/2023 11:52:02 10/21/2023 16:18:39 Bilateral osteoarthritis of knees 7739126376 90919 M17.0 [id number] ZEHRA LARIOS PA-C PAIN MEDICINE CLOSED [address] [place] [address] 1 11/02/2023 13:38:45 11/02/2023 16:00:38 Lumbar radiculopathy 452664255 M54.16 Bilateral osteoarthritis of knees 5531014417 74627 M17.0 Displaceme nt of lumbar intervertebral disc 0193757349 M51.26 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 20050405 M46.1 [id number] CAREN REDDY MD NEUROLOGY SB CLOSED [address] [place] [address] 1 11/17/2023 11:02:03 11/23/2023 13:49:31 Parkinson's disease 57543509 G20.A1 Long-term current use of drug therapy 122921402 Z79.899 Abnormal gait 08352495 R 26.9 Osteoarthr itis of knee 391185113 M17.9 [id number] RADHA JOHNSTON MD UROLOGY SB CLOSED [address] [place] [address] 1 11/23/2023 10:00:09 11/23/2023 12:36:02 Mixed urinary incontinence 834104622 N39.46 Overactive urinary bladder 391565206 N32.81 History of urinary tract infection 8302798740 107 Z87.440 Chronic ki dney disease 294051034 N18.9 [id number] ZEHRA LARIOS PA-C PAIN MEDICINE CLOSED [address] [place] [address] 1 12/09/2023 13:06:12 12/09/2023 16:02:18 Lumbar radiculopathy 366674322 M54.16 Bilateral osteoarthritis of knees 2884702298 78063 M17.0 Displaceme nt of lumbar intervertebral disc 4071277142 M51.26 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 75325253 M46.1 [id number] JULIANNA REAL MD [facility] [address] [facility], [address] [place] [address] 1 01/11/2024 12:46:35 01/11/2024 16:05:15 Lumbar radiculopathy 995697572 M54.16 [id number] RADHA JOHNSTON MD UROLOGY SB CLOSED [address] [place] [address] 01/20/2024 10:59:00 01/21/2024 14:29:47 Mixed urinary incontinence 358213477 N39.46 Overactive urinary bladder 077732768 N32.81 History of urinary tract infection 5128726144 107 Z87.440 Chronic ki dney disease 073363346 N18.9 [id number] JULIANNA REAL MD [facility] [address] [facility], [address] [place] [address] 01/31/2024 14:48:02 01/31/2024 16:05:06 Osteoarthritis of right knee joint 5458765726 19392 M17.11 [id number] TWILA BETANCOURT MD RHEUMATOL [facility] [address] [place] [address] 02/08/2024 10:47:37 02/08/2024 12:12:55 Systemic lupus erythematosus 96438029 M32.9 Long-term drug therapy 778172080 Z79.899 Retinal toxicity to Plaquenil CBC, CMP, [...] of malignancy , and infusion reactions. 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 No pericardia l effusion. Last chest CT 08/27/2022: Multiple nodules scattered throughout both lungs measuring up to 5 mm. No significan t enlargemen t of the pulmonary arteries to suggest pulmonary arterial hypertensi on. No bronchiect asis. No significan t interstiti al lung disease. Continue Benlysta 200 mg subcutaneo us every week (10/21/2023) Continue prednisone 10 mg daily for now and will try to wean this after her surgery. Bilateral osteoarthritis of knees 8614383793 43829 M17.0 L>R- she is getting the left knee replaced 02/17/[address] Brewer at [facility] Osteoporosis 95388800 M8 1.0 DEXA 05/07/2022 left femoral neck -0.3, right forearm -0.6, FRAX 9.4% / 0.7% Repeat DEXA every 2 years; due Continue weightbear ing exercise Recommend discussed calcium and vitamin D supplement ation with nephrology . Pulmonary hypertension 46215901 I27.20 Last echo 09/08/2022 : Estimated RVSP 41.1. Concentric left ventricula r hypertroph y. Normal EF 55%. Grade 1 diastolic dysfunctio n. Mildly enlarged right ventricle with normal contractil ity. No pericardia l effusion.- Continue follow-up with Dr. Underwood Spinal ho nosis of lumbar region 17172684 M48.061 2004 lumbar fusion L2-5 06/2018 lumbar fusion L1-S1 MRI/CT 06/2023 with severe degenerati ve changes Now imaging is suggesting that one of her screws is loose and she has a worsening bulging disc Continue follow-up with pain management Richie julio are helping Her last surgery on the lumbar spine was 12/24/2020 - Getting gabapentin from other providers [id number] ZEHRA LARIOS PA-C PAIN MEDICINE CLOSED [address] [place] [address] 03/01/2024 13:10:44 03/01/2024 16:23:02 Lumbar radiculopathy 463933238 M54.16 Bilateral osteoarthritis of knees 4628835302 73152 M17.0 Displaceme nt of lumbar intervertebral disc 4926977420 M51.26 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 96920395 M46.1 [id number] JULIANNA REAL MD [facility] [address] [facility], [facility] [[email or web address] [address] [place] [address] 1 04/20/2024 10:48:12 04/20/2024 14:45:24 Osteoarthritis of right knee joint 1043842647 13150 M17.11 [id number] CAREN REDDY MD NEUROLOGY SB CLOSED [address] [place] [address] 1 05/16/2024 10:35:11 05/19/2024 08:47:55 Parkinson's disease 86238624 G20.A1 Memory impairment 871011 006 R41.3 Abnormal g ait due to impairment of balance 932188898 R26.89 Long-term current use of drug therapy 436098368 Z79.899 [id number] JULIANNA REAL MD [facility] [facility] [address] [facility], [place] [address] 1 05/16/2024 11:47:25 05/16/2024 13:09:19 Lumbar radiculopathy 239109807 M54.16 [id number] ZEHRA LARIOS PA-C PAIN MEDICINE CLOSED [address] [place] [address] 1 06/27/2024 10:25:23 06/27/2024 12:32:18 Lumbar radiculopathy 279587860 M54.16 Bilateral osteoarthritis of knees 0113140781 97604 M17.0 Displaceme nt of lumbar intervertebral disc 1369736068 M51.26 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 44483075 M46.1 [id number] [place] APRN UROLOGY [address] [place] [address] 07/25/2024 10:30:10 07/25/2024 14:39:38 Mixed urinary incontinence 461942959 N39.46 Overactive urinary bladder 086275080 N32.81 History of urinary tract infection 9163447680 107 Z87.440 Chronic ki dney disease 918315660 N18.9 Malodorous urine 0467236 01 R82.998 [id number] JULIANNA REAL MD [facility] [address] [facility], [address] [place] [address] 07/27/2024 13:00:40 07/27/2024 14:34:21 Osteoarthritis of right knee joint 8920082677 44753 M17.11 [id number] ZEHRA LARIOS PA-C PAIN MEDICINE CLOSED [address] [place] [address] 08/31/2024 09:32:00 08/31/2024 16:14:36 Lumbar radiculopathy 832979922 M54.16 Bilateral osteoarthritis of knees 0956690056 37522 M17.0 Displaceme nt of lumbar intervertebral disc 4230420450 M51.26 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 Gout 26575302 M10.9 There is concern for overlappin g gout - encouraged continuing mitigare 0.6 mg daily- continue allopurino l 100 mg daily Bilateral osteoarthritis of knees 2064507870 50626 M17.0 She got her left knee replaced 02/17/[address] Brewer at [facility]- she has follow up with them again later this week about the right knee as the injections are not helping. Osteoporosis 66248678 M8 1.0 DEXA 05/07/2022 left femoral neck -0.3, right forearm -0.6, FRAX 9.4% / 0.7% Repeat DEXA every 2 years; due Continue weightbear ing exercise Recommend discussed calcium and vitamin D supplement ation with nephrology . Pulmonary hypertension 25102399 I27.20 Last echo 09/08/2022 : Estimated RVSP 41.1. Concentric left ventricula r hypertroph y. Normal EF 55%. Grade 1 diastolic dysfunctio n. Mildly enlarged right ventricle with normal contractil ity. No pericardia l effusion.- Continue follow-up with Dr. Underwood Spinal ho nosis of lumbar region 61670860 M48.061 2004 lumbar fusion L2-5 06/2018 lumbar fusion L1-S1 MRI/CT 06/2023 with severe degenerati ve changes Now imaging is suggesting that one of her screws is loose and she has a worsening bulging disc Continue follow-up with pain management Richie Real i njections are helping Her last surgery on the lumbar spine was 12/24/2020 - Getting gabapentin from other providers [id number] JULIANNA REAL MD [facility] [facility] [address] [facility], [address] [place] [address] 09/18/2024 13:16:48 09/18/2024 14:37:39 Lumbar radiculopathy 526902179 M54.16 [id number] CAREN REDDY MD NEUROLOGY SB CLOSED [address] [place] [address] 10/04/2024 10:27:00 10/05/2024 05:06:14 Parkinson's disease 59463243 G20.A1 Abnormal g ait due to muscle weakness 256192018 M62.81 Memory impairment 276498 006 R41.3 [id number] ZEHRA LARIOS PA-C PAIN MEDICINE CLOSED [address] [place] [address] 11/16/2024 09:28:43 11/16/2024 16:27:58 Lumbar radiculopathy 813893028 M54.16 Bilateral osteoarthritis of knees 7842769468 89630 M17.0 Displaceme nt of lumbar intervertebral disc 7897033131 M51.26 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 Gout 04711842 M10.9 There is concern for overlappin g gout - encouraged continuing mitigare 0.6 mg daily- continue allopurino l 100 mg daily Bilateral osteoarthritis of knees 8617557019 59408 M17.0 She got her left knee replaced 02/17/[address] Brewer at [facility]- she will be getting her right knee replaced Osteoporosis 93035025 M8 1.0 DEXA 05/07/2022 left femoral neck -0.3, right forearm -0.6, FRAX 9.4% / 0.7% Repeat DEXA every 2 years; due ; overdue for this Continue weightbear ing exercise Recommend discussed calcium and vitamin D supplement ation with nephrology . Pulmonary hypertension 11059482 I27.20 Last echo 09/08/2022 : Estimated RVSP 41.1. Concentric left ventricula r hypertroph y. Normal EF 55%. Grade 1 diastolic dysfunctio n. Mildly enlarged right ventricle with normal contractil ity. No pericardia l effusion.- Continue follow-up with Dr. Underwood Spinal ho nosis of lumbar region 66535860 M48.061 2004 lumbar fusion L2-5 06/2018 lumbar fusion L1-S1 MRI/CT 06/2023 with severe degenerati ve changes Now imaging is suggesting that one of her screws is loose and she has a worsening bulging disc Continue follow-up with pain management Richie julio are helping Her last surgery on the lumbar spine was 12/24/2020 - Getting gabapentin from other providers [id number] NEENA DEVI, DO NEUROLOGY [address] [place] [address] 02/16/2025 10:29:30 02/17/2025 04:44:56 Parkinson's disease 34962823 G20.A1 Chronic condition that is stable. She is on CD/LD and amantadine . She finds these medication s at the current dose are controllin g her tremors quite well. She does not need refills today. Memory impairment 403790 006 R41.3 Hx of MCI/early dementia. She [...] daytime for assistance . Idiopathic peripheral neuropathy 26859030 G60.9 14601 Chronic condition that is secondary to degenerati ve disease in her low back. She is currently prescribed gabapentin and finds this effective for her neuropathi c pain. She has had prior nerve testing. She would like me to request those results to review. [id number] ZEHRA LARIOS PA-C PAIN MEDICINE [address] [place] [address] 03/02/2025 10:26:24 03/02/2025 15:50:22 Lumbar radiculopathy 199576314 M54.16 Displaceme nt of lumbar intervertebral disc 4066640342 M51.26 Degenerati on of lumbar intervertebral disc 52365619 M51.369 Lumbar spondylosis 60261 0009 M47.816 Low back pain 468838531 M54.51 [id number] TWILA [facility]ANCOURT [facility] [address] [place] [address] 03/06/2025 10:38:41 03/10/2025 05:11:27 Connective tissue disease overlap syndrome 893769414 M35.1 Diagnosed with lupus 1986 with rash, [...] 5 mg daily Systemic l upus erythematosus 22909315 M32.9 Long-term drug therapy 630416893 Z79.899 Retinal toxicity to Plaquenil CBC, CMP, [...] of malignancy , and infusion reactions. Gout 97202213 M10.9 There is concern for overlappin g gout - encouraged continuing mitigare 0.6 mg daily- continue allopurino l 100 mg daily Bilateral osteoarthritis of knees 9355622261 27612 M17.0 She got her left knee replaced 02/17/[address] Brewer at [facility]- she will be getting her right knee replaced Osteoporosis 87614943 M8 1.0 DEXA 05/07/2022 left femoral neck -0.3, right forearm -0.6, FRAX 9.4% / 0.7% Repeat DEXA every 2 years; due ; overdue for this Continue weightbear ing exercise Recommend discussed calcium and vitamin D supplement ation with nephrology . Pulmonary hypertension 83743691 I27.20 Last echo 09/08/2022 : Estimated RVSP 41.1. Concentric left ventricula r hypertroph y. Normal EF 55%. Grade 1 diastolic dysfunctio n. Mildly enlarged right ventricle with normal contractil ity. No pericardia l effusion.- Continue follow-up with Dr. Underwood Spinal ho nosis of lumbar region 81923295 M48.061 2004 lumbar fusion L2-5 06/2018 lumbar fusion L1-S1 MRI/CT 06/2023 with severe degenerati ve changes Now imaging is suggesting that one of her screws is loose and she has a worsening bulging disc Continue follow-up with pain management Richie eRal i njections are helping Her last surgery on the lumbar spine was 12/24/2020 - Getting gabapentin from other providers [id number] JULIANNA REAL MD [facility] [address] [facility], [address] [place] [address] 04/09/2025 15:16:30 04/10/2025 08:00:58 Lumbar radiculopathy 305587405 M54.16 [id number] ZEHRA LARIOS PA-C PAIN MEDICINE [address] [place] [address] 04/24/2025 10:08:12 04/24/2025 13:59:41 Lumbar radiculopathy 706659092 M54.16 Bilateral osteoarthritis of knees 4949766629 17020 M17.0 Displaceme nt of lumbar intervertebral disc 1549997576 M51.26 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 52900094 M46.1 33202 [id number] NAHUN DUDLEY PA-C NEUROSURG [facility] [address] [place] [address] 06/06/2025 09:07:58 06/14/2025 06:29:20 Thoracic spondylosis 238383175 M47.814 61263 Lumbar radiculopathy 128 350737 M54.16 82505 Cervical radiculopathy 17566445 M54.12 [id number] Health Concerns Section Related Observation LastModified by Organization Detai ls LastModified Time None Recorded Concern Status LastModified by Organization Details LastModified Time None Recorded Advance Directives Directive None Recorded Payers Insurance Date Sequence Insurance Name Policy Number Policy Pearl Covered Member ID Pearl Member ID Guarantor Name 06/03/2025 2 MEDICAID-[facility] - FFS/TRADITIONA Elzbieta Jerez [id number] Niko Jerez 06/14/2025 1 [employer] (MEDICARE REPLACEMENT/AD VANTAGE - PPO) Niko Jerez [id number] Niko Jerez 03/02/2025 2 [place] [id number] Niko Jerez [id number] Niko Jerez 03/02/2025 1 [place] Niko Jerez [id number] Niko Jerez 03/02/2025 [place] Niko Jerez 03/02/2025 2 [place] [id number] Niko Jerez [id number] Niko Jerez 03/02/2025 INGENIOUSMED (MOVED TO HOLD) Niko Jerez Notes Date Note Type Note Provider Name and Address Organization Details Recorded Time 03/02/2025 text/html Hip(s)Reported b y PatientHPIFor associated symptoms, patient reportsweakness,numbn ess,swelling, andradiation down leg. For location, patient reportsleft (hip)andbuttocks. For quality, patient reportsaching,burning ,gnawing,stabbing,thr obbing,sharp, anddull. For severity, patient reportssevere,pain level 10/10, andworst pain 10/10. For duration, patient reports2 months. For timing, patient reportsacute. For context, patient reportscannot identify. For alleviating factors, patient reportssitting. For aggravating factors, patient reportsstanding,lying down,walking,changing clothes,getting out of bed,going from sit to stand,morning,daytime , andnighttime. For previous surgery, patient reportsnone. For prior imaging, patient reportsnone. For previous injections, patient reportsnone. For work related, patient reportsno. For working, patient reportsno. 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 Niko Jerez is a 79 yo female here today for FUP Lt hip/buttock pain that started 2 days ago. Left leg is sore . Pt also had Rt TKA 12/12 @ [facility] Per Walt Brewer MD. ZEHRA LARIOS PA-C [address] [place] [address], [phone], [facility] 03/12/2025 12:18:38 03/06/2025 text/html ROS as noted in the HPI Niko Jerez is a 79-year-old woman with past [...] eyes, dry mouth, raynaud's, headaches, hematuria, VTE's. TWILA BETANCOURT MD [address] [place], [phone], [facility] 03/09/2025 00:21:14 04/24/2025 text/html Injection follow upReported by PatientPainFor location, patient reportslow back. For % of relief, patient reportspain relief 80-95%. For duration of relief, patient reportsongoing (0% pain relief). For severity, patient reportssameandcurrent pain 9/10. For wound, patient reportsinjection site healed well,no fever, andno bleeding. For most recent procedures, (caudal megan 04/09/25). ZEHRA LARIOS PA-C [address] [place], [phone], [facility] 04/24/2025 11:12:14 06/06/2025 text/html Ms. Jerez is status post a fusion extension to include T10 through iliac screws with Dr. Eloy De Leon on 12/24/2020. Since that time she has followed with Dr. Felton. She was last seen in 2022. Since then she has been seeing Dr. Real and receiving caudal epidural steroid injections. She reports that these have been very helpful until the most recent injection which only gave her a few days of improvement. She describes pain especially in the buttocks radiating down the posterior thigh and calf and anterior thigh. Currently the left lower extremity is worse than the right, but at times the right can be worse. Her symptoms are worse with activity and walking, she does get some improvement but not resolution with lying down. She also reports neck pain that radiates down the left upper extremity into her hand. She does have some decreased balance. NAHUN DUDLEY PA-C [address] [place], [phone], [facility] 06/06/2025 16:39:03 OBGyn Episode No OBEpisode recorded.
--- OUTSIDE RECORDS SUMMARY | 2025-06-22 13:55 | XMS_ITS | Encounter Summary ---
Author Organization [facility] Address [address] [place] [address] Care Team Providers Care Separating Machine Operator Name Role Phone Miller Hazel MD Primary Care Provider [phone] Encounter Details Date Type Department Care Team (Latest Contact Info) Description 05/23/2025 Travel 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 Tobacco Use Types Packs/Day [...] Description 11/21/2025 10:15 AM EST Office Visit [facility] [address] [place] [address] Raymond Cano MD [address] [phone] documented as of this encounter Visit Diagnoses Not on filedocumented in this encounter Additional Health Concerns Assessment Noted Time A fall risk assessment has been complete d for the patient 11/07/2024 11:20 AM EST A Body Mass Index follow-up plan has been documented for the patient 05/23/2025 12:21 PM EDT documented as of this encounter Care Teams Separating Machine Operator Relationship Specialty Start Date End Date Miller Hazel MD [address] [place] [address] PCP - General 08/04/21 documented as of this encounter
--- OUTSIDE RECORDS SUMMARY | 2025-06-22 13:55 | XMS_ITS | Continuity of Care Document ---
Author Organization [facility], PAIN MEDICINE [address] [place] [address] Care Team Providers Care Line Server Name Role Phone RADHA MIDDLETON Primary Care Provider ADOLFO HALL Hot Sealing Machine Operator SUDHIR COTO Psychology Assistant Unavailabl e Assessment Encounter Date Assessment Date Assessment LastModified by Organization Details LastModified Time 04/24/2025 04/24/2025 This is a 79-year-old female with chronic low back pain and left buttock pain. Recent caudal CYNDI provided notable improvement that lasted only 3 days. She endorses ongoing left low back pain buttock pain and S1 radicular pain. She points to the left SI joint in the center of her buttock. Aleida finger sign +, thigh thrust +, sacral thrust +, JER + PMH: Parkinson's, CAD (Plavix, ASA), gout PSHx: T10-S2 fusion, Left knee TKA m([facility] [place], 01/2024), right TKA ([facility] [place], 11/2024) 1. X-ray lumbar spine 04/27/2022 demonstrates [...] Previous injection therapy has included: 04/09/2025 caudal CYNDI with 90% x 3 days 09/18/2024 Caudal CYNDI with 70% x 6 [...] x-ray 3. Lumbar MRI. 4. Consider additional CYNDI or other intervention such as spinal cord [...] including imaging, clinical notes, and relevant labs. [email or web address] Not available 04/24/2025 11:11:57 Plan of Treatment Reminders Order Date Submit Date Provider Last Modified By Organization Details Last Modified Time Details Appointments RHEUM RECHECK 2024 10:45A M ADOLFO HALL MD Not available Not available Not available MRI 2024 10:00A M MRI Not available Not available Not available CT SCAN 2024 10:20A M ct_scan Not available Not available Not available CT SCAN 2024 10:20A M ct_scan Not available Not available Not available RECHECK 2024 10:30A M [place] [employer] Not available Not available Not available NEUROLOG Y RECHECK 2025 10:30A M NEENA DEVI DO Not available Not available Not available Lab None recorded . Referral None recorded . Procedures None recorded . Surgeries None recorded . Imaging XR, lumbosac ral spine, 4 or more view [email or web address] [place] [address] Radiology [address], [address] [place], [address], 04/24/2025 13:59:41 MRI, lumbar spine, w/o contrast 2024 025 [facility] Radiology [facility], [address] [place], [address], 05/21/2025 10:32:12 Medication Orders Medrol (Edu) 4 mg tablets in a dose pack 2024 025 [facility], [address] [place] [address], [id number], 04/24/2025 11:17:49 Patient TargetsNo targets recorded. Patient InstructionsNo instructions recorded. Reason for Referral None Reported. Results Created Date Observation Date Name Description Value Unit Range Abnormal Flag Note LastModifiedBy Organization Detail LastModifiedTime 04/24/2004/24/2025 XR, lumbo sacra l spine , 4 or more view [facility] [address] [place] [address] Patimayra t Name: AREN Ruff RAFAEL Luis Angel self : 9[address] Patimayra t 1 Rubio garvin Provid er: ZEHRA MILLAY EXAM DATE: 2024 EXAM: XR LUMBAR SPINE AP/LAT /FLEX/ EXT CLINIC AL INFORM ATION: Back pain. IMAGES PROVID ED: AP, latera l and coned- down views of the lumbar spine with additi onal latera l views in flexio n and extens ion. COMPAR MAXIMUS: None. FINDIN GS: Verteb ral body height s are normal . Previo us backend tester ior fusion extend ing from T10 to [...] Teofilo Rao MD on 04/24/20 11:38 AM [facility] Radiology [address] [place], [address], 04/25/2025 10:05:53 05/21/2005/17/2025 MRI, thora cic spine , w/o contr ast [facility] [address] [place], [place] [address] Patien t Name: AREN Ruff RAFAEL Patien t : 948 Patien t 1 Orderi ng Provid er: ZEHRA MILLAY EXAM DATE: 2024 EXAM: MR THORAC IC W/O CONTRA ST HISTOR Y: 79-yea r-old female with chroni c mid and low back pain radiat ing to the left hip. COMPAR MAXIMUS: None. FINDIN GS: There is a probab le old compre ssion fractu re of the T10 verteb ral body. There is osseou s fusion at T9-T10 . There is backend tester ior fusion extend ing from T10 throug h the lumbar spine. There is parama gnetic artifa ct from the pedicl e screws and backend tester ior fusion hardwa re. There is focal kyphos is at T9-T10 and kyphos is of the upper thorac ic spine. There is no acute fractu re. There is mild anteri or margin al osteop hytic spurri ng. No pathol ogic lesion is identi fied in the thorac ic spine. The visual ized spinal cord appear s normal . There is modera te backend tester ior spurri ng at T9-T10 . There [...] fusion at T9-T10 . 2. There is backend tester ior fusion extend ing from T10 throug h the lumbar spine. Interp reted By: Charlene ochoa MD Electr onical ly Signed By: Charlene ochoa MD on 05/21/20 25 10:[address] Radiology [address], [address], 05/23/2025 12:48:07 05/21/2005/17/2025 MRI, lumba r spine , w/o contr ast [address] [address] Patimayra t Name: AREN self : [address] Patimayra t 1 Orderi ng Provid er: ZEHRA MILL EXAM DATE: 2024 EXAM: MR LUMBAR W/O CONTRA ST HISTOR Y: 79-yea r-old female with chroni c mid and low back pain radiat ing to the left hip. COMPAR MAXIMUS: Radiog raph dated 04/24/20 25 and MRI dated 018 FINDIN GS: There is backend tester ior fusion and joselyn ctomie s extend ing from T10 throug h the sacrum . There is parama gnetic artifa ct from the pedicl e screws and backend tester ior fusion hardwa re. There are prior [...] ing at L5-S1. 2. There is prior backend tester ior fusion and joselyn ctomie s extend ing from T10 throug h the sacrum . Interp reted By: Charlene ochoa MD Electr onical ly Signed By: Charlene ochoa MD on 05/21/20 10:27 AM [email or web address] [facility] Radiology [facility] [address] [place], [address], 05/23/2025 12:47:59 Result Notes Documentation Provider Name and Address Organization Details Recorded Time Xr, Lumbosacral Spine, 4 Or More View : [facility] [address] [place] [id number] Patient Name: NIKO JEREZ Patient : 1945 [...] By: Teofilo Rao MD A LARIOS PA-C [address] [place] [address], [address], [facility] 04/25/2025 10:05:53 Problems Name Problem SNOMED Code Status Onset Date Resolution Date Notes Provider Name and Address Organization Details Recorded Time Arthriti s 8777883 [facility] 12[facility]:45 Chronic depressi on 599909618 Active Jovita (Vani) Rody [facility] 9 12:07:45 Allergic disposit ion 480978690 Active Jovita (Vani) Croley null, [facility] 9 12:07:45 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 Jovita (Vani) Croley null, [facility] 9 12:07:45 History of respirat ory disease 530827859 [facility] 12:07:45 Degenera tive disorder of macula 631720008 Active [facility] 9 12:07:46 Backache 135148318 Active [facility] 9 12:07:46 Disorder of thyroid gland 62378380 Active [facility] 9 12:07:46 Kidney stone 16576276 Active [facility]ani[facility] 9 12:07:46 Bilatera l cataract s 20503311 Active [facility]ani[facility] 9 12:07:46 Pancreat itis 39515666 Active Jovita (Vani) Croley [facility] 9 12:07:46 Chronic diarrhea 800360297 Active [facility] 9 12:07:46 Anemia 142676559 Active [facility]ani[facility] 9 12:07:46 Coronary arterios clerosis 27202959 Active Jovita (Vani) Croley null, [facility] 9 12:07:46 Impairme nt of balance 963668965 Active [facility]ani[facility] 12:07:46 Urinary tract infectio us disease 30949554 Active Jovita (Vani) Croley [facility] 9 12:07:46 Glaucoma 91179334 Active Jovita (Vani) Croley null, [facility] 9 12:07:46 Rheumato id arthriti s 71373287 Active Jovita (Vani) Croley null, [facility] 9 12:07:46 Neck pain 07440126 Active [facility] 12:07:46 Spinal stenosis 79368203 Active Jovita (Vani) Croley null, [facility] 9 12:07:46 Migraine 05802225 Active [facility] 12:07:46 Wears glasses 069543498 Active Jovita (Vani) Croley [facility] 9 12:07:46 Sinusiti s 19693205 Active Jovita (Vani) Croley [facility] 9 12:07:46 Peripher al nerve disease 839491189 Active [facility]ani[facility] 9 12:07:46 Gastroes ophageal reflux disease 721217076 Active [facility]ani[facility] 9 12:07:46 Deep venous thrombos is 980815777 Active [facility]ani[facility] 9 12:07:46 Hyperlip idemia 72615840 Active [facility]ani[facility] 9 12:07:46 Acute poliomye litis 767518172 Active 1954 Jovita (Vani) [facility]ley [facility] 9 12:07:46 Systemic lupus erythema tosus 56669373 Active 1989 Jovita (Vani) Маринаley null, [facility] 9 12:07:46 Prolapse d lumbar interver tebral disc 259238499 Active 2014 From Automate d Load;Pro vider: Eloy Amezquita; Status: Active [facility] 12:07:46 Low back pain 112124564 Active 2014 Provider : Eloy Amezquita; Status: Active Jovita tsang (Camille)[facility] 9 12:07:46 Spinal stenosis of lumbar region 81202649 Active 2014 From Automate d Load;Pro vider: Eloy Amezquita; Status: Active Jovita tsang (Camille)[facility] 9 12:07:46 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[place] artery 82210750154 07 Active 2014 From Automate d Load;Pro vider: Zain , Josh;St atus: Active Jovita tsang ([place]ille)[facility] 9 12:07:46 Abdomina l pain 65270635 Active 2014 From Automate d Load;Pro vider: Zain , Josh;St atus: Active Jovita Fine ([place]) [facility] 9 12:07:46 Pain 49455615 Active 2014 From Automate d Load;Pro vider: Zain , Josh;St atus: Active Jovita tsang ([place])[facility] 9 12:07:45 Blood in urine 94237256 Active 2014 From Automate d Load;Pro vider: Zain , Josh;St atus: Active Jovita tsang ([place])[facility] 9 12:07:46 Pain in right knee Active 2014 From Automate d Load;Pro vider: Zain , Josh;St atus: Active Jovita tsang (Camille)[facility] 9 12:07:46 Hyperten sive disorder 25355053 Active 2014 From Automate d Load;Pro vider: Zain Josh;St atus: Active Not Available [facility] 6 23:35:13 Idiopath ic osteoart hritis 045918869 Active 2014 From Automate d Load;Pro vider: Herminia Orr;Status : Active [facility]Vani[facility] 9 12:07:45 Pain in left knee Active 2014 From Automate d Load;Pro vider: Malu Luna;Reji seniorus: Active [facility]ani[facility] 9 12:07:46 Migraine without aura, not refracto ry 329428708 Completed 201506/07/2019 From Automate d Load;Pro vider: Geronimo Dahl; atus: Active [facility] 9 12:53:55 Lumbosac ral radiculo bob 8845769 Active 2015 From Automate d Load;Pro vider: Eloy Amezquita; Status: Active [facility]ani[facility] 9 12:07:46 Chronic headache disorder 808901536 Active 2018 Susan Colon [facility] 9 12:53:51 Neuropat hy 281513266 Active 2019 Jovita (Vani) Rody [facility] 0 12:46:05 Memory impairme nt 542623827 Active 2019 Jovita (Vani) Rody [facility] 0 12:46:19 Vertigo 590296109 Active 2020 Jovita (Vani) Rody [facility] 1 16:06:43 Parkinso n's disease 21953911 Active 2024 NEENA DEVI, DO [facility] [place], [address] , [facility] 5 11:21:53 Abnormal gait due to muscle weakness 021987512 Active 2024 NEENA DEVI, DO [address] [place], [address] , [facility] 11:21:53 Idiopath ic peripher al neuropat 94479687 Active 2024 NEENA DEVI DO [address] [place], [address] , [facility] 11:02:22 Notes:Some problems listed i n Document: #[id number] could not be added to this patient's chart. Please review this document and add these problems to the patient's chart manually as needed. Problem Notes None recorded. Procedures Surgical History Date Name Laterality Status Provider Name and Address Organization Details Recorded Time 04/09/20 Caudal CYNDI Addie completed JULIANNA MALONE MD [address] [place] [address], [address], [facility] 04/09/2025 17:22:39 12/06/19 25 total knee replacement completed Bakari Moe [facility] 04/24/2025 10:45:14 11/14/19 25 dental surgical procedure completed Catrina Us [facility] 12/05/2024 11:13:30 09/18/20 24 Caudal CYNDI Addie completed JULIANNA MALONE MD [address] [place] [address], [address], [facility] 09/18/2024 14:11:05 07/27/20 24 Joint Injection, Knee - [place] [address] [place] [address], [address], [facility] 07/27/2024 13:58:38 07/25/20 24 Post Void Residual; Ultrasound completed [place], KELSIE [address] [place] [address], [address], [facility] 07/25/2024 11:36:57 05/16/20 24 Caudal CYNDI Addie completed JULIANNA MALONE MD [address] [place], [address], [facility] 05/16/2024 12:49:14 04/20/20 24 Joint Injection, Knee - Addie completed JULIANNA MALONE MD [address] [place], [address], [facility] 04/20/2024 11:47:04 02/08/20 24 total knee replacement completed Shayy Lamlin [facility] 05/16/2024 10:52:57 01/31/20 24 Joint Injection, Knee - Addie completed JULIANNA MALONE MD [address] [place], [address], [facility] 01/31/2024 15:34:35 01/20/20 24 Post Void Residual; Ultrasound completed RADHA JOHNSTON MD [address] [place], [address], [facility] 01/20/2024 11:50:18 01/11/20 24 Caudal CYNDI Addie completed JULIANNA MALONE MD [address] [place], [address], [facility] 01/11/2024 13:44:46 11/23/19 24 Post Void Residual; Ultrasound completed Chaparrita Gómez [facility] 11/23/2023 11:05:50 10/21/19 24 Joint Injection, Knee - Addie completed JULIANNA MALONE MD [address] [place], [address], [facility] 10/21/2023 13:59:42 10/07/19 24 Caudal CYNDI Addie completed JULIANNA MALONE MD [address] [place], [address], [facility] 10/07/2023 12:03:23 08/31/20 23 Trigger Point Injections - Addie completed ZEHRA LARIOS PA-C [address] [place], [address], [facility] 08/31/2023 15:18:07 07/12/20 23 Lumbar Transforaminal Epidural Injection - Addie completed JULIANNA MALONE MD [address] [place], [address], [facility] 07/12/2023 12:44:44 01/28/20 23 Monovisc Injection completed HEAVEN GRAHAM PA-C [address] [place], [address], [facility] 02/09/2023 13:19:06 08/06/20 20 LIGATION OR BIOPSY, TEMPORAL ARTERY (SURG) completed Iraida Beyer [facility] 08/07/2020 14:34:42 Back Surgery completed Kati Rakan [facility] 05/10/2018 14:27:13 Shoulder joint surgery completed Kati Rakan [facility] 05/10/2018 14:27:30 Tubal Ligation completed Natalia Paul [facility] 11/17/2023 11:49:05 placement of stent in cardiac conduit completed Natalia Paul [facility] 11/17/2023 11:49:20 Shoulder joint surgery completed Shayy Pathak [facility] 05/16/2024 10:52:23 Imaging Results None recorded. Procedure Notes None recorded. Medical Equipment None Reported. Allergies Allergen ID Allergen Name Allergen Category Reaction Reaction Severity Criticality Documentation Date Start Date Code Code System Note Provider Name and Address Organization Details Recorded Time 656498 Compazine medicatio n Not available Not available Not available 08/13/2016201254 6 RxNorm Comme nt: Creat ed By: Deny tamayo Date: 07/19 10:31 :05 AM; [facility] 13:19:43 600720 acetamino phen / oxycodone medicatio n hallucina tions Not available Not available 08/13/20162012 59070 3 RxNorm [facility] 3 13:19:26 563998 aspirin medicatio n Not available Not available Not available 08/13/20162015 1191 RxNorm Comme nt: Creat ed By: Owen coffman Date: 2015 2:57: 49 PM; [facility] 3 10:56:39 156150 prochlorp erazine medicatio n seizure Not available Not available 06/07/2019 8704 RxNorm Paddy zine Natalia Miller null, [facility] 3 13:19:09 652901 aspirin medicatio n Not available Not available Not available 06/07/2019 1191 RxNorm 'Rhina l funct ion tests abnor mal'. Natalia Miller [facility] 3 13:19:59 250009 baclofen medicatio n other Not available Not available 05/03/2025 1292 RxNorm High B/P, odinky Catrina York [facility], [facility] 5 11:41:26 Medications Name Sig [...] as needed by oral route. 2024 active [facility]: 0904-588 0-61 Not Available Not Available Not [...] Not Available Vitals Date Recorded Body height Oxygen saturation Oxygen saturation in Arterial blood by Pulse oximetry Heart rate Systolic And Diastolic Provider Name and Address Organization Details Last Updated DateTime 5 162.56 cm 95 % 95 % 69 /min 140/72 mm[Hg] Bakari Moe [facility] 5 10:52:36 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 Question Answer Notes LastModified by Organizat ion Details LastModified Time Tobacco Smoking Status Former Smoker Kati Bledsoe [facility] 05/10/2018 14:27:07 How Much Tobacco Do You Chew? None [email or web address] Information not available 06/07/2019 Which Illicit Or Recreational Drugs Have You Used? No [email or web address] Information not available 06/06/2020 Marital Status Junior [email or web address] Informatio n not available 06/07/2019 What Was The Date Of Your Most Recent Tobacco Screening? 04/24/2025 [email or web address] Information not available 04/24/2025 What Is Your Relationship Status? [email or web address] Information not available 08/31/2024 How Much Tobacco Do You Smoke? No [email or web address] Information not available 06/07/2019 Sex: Unknown Functional Status Question Answer Note LastModified by Organizat ion Details LastModified Time What is your level of alcohol consumption? None [email or web address] Information not available 06/07/2019 Do you or have you ever used smokeless tobacco? Never used smokeless tobacco [email or web address] Information not available 06/07/2019 Are you currently employed? No [email or web address] Information not available 08/31/2024 What is your occupation? retired [email or web address] Information not available 06/07/2019 Do you or have you ever used e-cigarettes or vape? Never used electronic cigarettes [email or web address] Information not available 06/07/2019 Mental Status None [...] Osteoporosis/Osteopenia Y Stomach trouble Y Heart Attack ([place]) N Diabetes N Anxiety Disorder Y Bleeding [...] virus, quadrivalent, preservative 8 completed Wendie Rozina [facility] 06/07/2019 11:53:21 pneumococcal, unspecified formulation 7 [facility] 11:53:21 Influenza, split virus, quadrivalent, preservative 0 completed Jovita (Vani) Rody null, [facility] 06/06/2020 12:05:59 SARS-COV-2 (COVID-19) vaccine, UNSPECIFIED 1 completed Mare Johnsonholz [facility], [facility] 03/18/2021 09:39:59 SARS-COV-2 (COVID-19) vaccine, UNSPECIFIED 1 completed Marebernardo Blesdoe [facility], [facility] 03/18/2021 09:40:02 Influenza, split virus, quadrivalent, preservative 0 completed Marebernardo Bledsoe [facility] 03/18/2021 09:40:14 Past Encounters Encounter ID Performer Location Encounter Start Date Encounter Closed Date Diagnosis/Indication Diagnosis SNOMED-CT Code Diagnosis ICD10 Code Diagnosis IMO Codes Diagnosis Note [id number] JULIANNA MALONE MD [facility] PROFESSIO NAL CHARGES [address] [facility], [address] [place] [phone] 04/09/2025 15:16:30 04/10/2025 08:00:58 Lumbar radiculopathy 985375888 M54.16 [id number] ZEHRA LARIOS PA-C PAIN MEDICINE [address] [place] [phone] 04/24/2025 10:08:12 04/24/2025 13:59:41 Lumbar radiculopathy 241655622 M54.16 Bilateral osteoarthritis of knees 2836973440 72333 M17.0 Displaceme nt of lumbar intervertebral disc 1424570644 M51.26 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 71108702 M46.1 99032 Health Concerns Section Related Observation LastModified by Organization Detai ls LastModified Time None Recorded Concern Status LastModified by Organization Details LastModified Time None Recorded Payers Encounter Date Sequence Insurance Name Policy Number Policy Pearl Covered Member ID Pearl Member ID Guarantor Name 04/24/2025 1 [employer] (MEDICARE REPLACEMENT/ ADVANTAGE - PPO) Niko Jerez [id number] Niko Jerez 04/24/2025 2 [place] [employer] - FFS/TRADITIO NAL Niko Jerez [id number] Niko Jerez Notes Date Note Type Note Provider Name and Address Organization Details Recorded Time 04/24/2025 text/html Injection follow upReported by PatientPainFor location, patient reportslow back. For % of relief, patient reportspain relief 80-95%. For duration of relief, patient reportsongoing (0% pain relief). For severity, patient reportssameandcurrent pain 9/10. For wound, patient reportsinjection site healed well,no fever, andno bleeding. For most recent procedures, (caudal cyndi 04/09/25). ZEHRA LARIOS PA-C [address] [place] [address], [phone], [facility] 04/24/2025 11:12:14 OBGyn Episode No OBEpisode recorded.
--- OUTSIDE RECORDS SUMMARY | 2025-06-22 13:55 | XMS_ITS | Encounter Summary ---
[facility] [address] [place] [address] Care Team Providers Care Panel Monitor Name Role Phone Miller Hazel MD Primary Care Provider [phone] Encounter Details Date Type Department Care Team [...] or training? Not on file Preferred Language Serbian 12/08/2024 Comments No Sex and Gender Information [...] Description 07/10/2025 10:30 AM EDT Office Visit [facility] PULMONARY & CRITICAL CARE MEDICINE [address] [facility] [address] [place] [address] Winnie Laura, [employer] TECHNICIAN [address] [place] [address] 03/04/2026 10:45 AM EDT Office Visit [facility] CARDIOLOGY [address] [facility] [address] [place] [phone] Jerson Underwood MD [address] [facility] [address] [place] [address] 05/01/2026 11:00 AM EDT Office Visit [facility] CARDIOTHORACIC SURGERY [address] [facility] [address] [place] [phone] Radha Lowry, [employer] TECHNICIAN [address] [facility] [address] [place] [address] documented as of this encounter Visit Diagnoses Not on filedocumented in this encounter Care Teams Panel Monitor Relationship Specialty Start Date End Date Miller Hazel MD [address] [facility] [address] [place] [id number] PCP - General Adolescent Medicine 10/30/19 documented as of this encounter
--- OUTSIDE RECORDS SUMMARY | 2025-06-22 13:55 | XMS_ITS | Clinical Summary ---
Author Organization [facility] Address [address] [place] [address] Phone Care Team Providers Care Mold Making Supervisor Name Role Phone Jerry MEJIAS, Marilou Unavailable Unavailable Conditions or Problems Problem Name Problem Code Onset Date Status Entry Date Provider Comment Standard Description Annotate Kidney disease, chronic, stage II 334674295 (SNOMED CT) 03/06 Active 03/06 Bobo Vizcarra MD Chronic kidney disease stage 2 UTI, recurrent 914247701 (SNOMED CT) 03/06 Active 03/06 Bobo Vizcarra MD Recurrent urinary tract infection DIARRHEA, CHRONIC 376438368 (SNOMED CT) 06/17 Active 06/17 Bobo Vizcarra MD Chronic diarrhea SYSTEMIC LUPUS ERYTHEMATOSU S 77656679 (SNOMED CT) 06/17 Active 06/17 Bobo Vizcarra MD Systemic lupus erythematosus IMMUNOCOMPRO MISED 290440560 (SNOMED CT) 06/17 Active 06/17 Bobo Vizcarra MD Immunodeficienc y disorder RHEUMATOID ARTHRITIS 07270494 (SNOMED CT) 06/17 Active 06/17 Bobo Vizcarra MD Rheumatoid arthritis C. Difficile colitis, recurrent 85279851 (SNOMED CT) 03/05 Active 03/05 Martine Damir Enterocolitis DIARRHEA, CHRONIC 332470398 (SNOMED CT) 06/17 Resolved 06/17 Martine Damir Chronic diarrhea LEUKOPENIA 98620987 (SNOMED CT) 06/17 Resolved 06/17 Martine Damir Leukopenia RHEUMATOID ARTHRITIS 90228650 (SNOMED CT) 06/17 Resolved 06/17 Martine Damir Rheumatoid arthritis THROMBOCYTOP ENIA 216350941 (SNOMED CT) 06/17 Resolved 06/17 Martine Reich Thrombocytopeni c disorder SYSTEMIC LUPUS ERYTHEMATOSU S 42921570 (SNOMED CT) 06/17 Resolved 06/17 Martine Reich Systemic lupus erythematosus HEPATITIS 085376769 (SNOMED CT) 06/17 Resolved 06/17 Martine Reich Inflammatory disease of liver ANEMIA 788754053 (SNOMED CT) 06/17 Resolved 06/17 Martine Reich Anemia IMMUNOCOMPRO MISED 190611049 (SNOMED CT) 06/17 Resolved 06/17 Martine Reich Immunodeficienc y disorder SEPSIS SYNDROME A41.9 (ICD-10-CM ) 06/17 Resolved 06/17 Martine Reich Sepsis, unspecified organism THRUSH 18978496 (SNOMED CT) Resolved Martine Reich Candidiasis THRUSH 49861465 (SNOMED CT) Removed Jaskaran Estrada MD Candidiasis RHEUMATOID ARTHRITIS 91143579 (SNOMED CT) 06/17 Removed 06/17 Marilou Edwards RN Rheumatoid arthritis ANEMIA 244287877 (SNOMED CT) 06/17 Removed 06/17 Marilou Edwards RN Anemia THROMBOCYTOP ENIA 671405164 (SNOMED CT) 06/17 Removed 06/17 Marilou Edwards RN Thrombocytopeni c disorder LEUKOPENIA 92357148 (SNOMED CT) 06/17 Removed 06/17 Marilou Edwards RN Leukopenia SYSTEMIC LUPUS ERYTHEMATOSU S 83230557 (SNOMED CT) 06/17 Removed 06/17 Marilou Edwards RN Systemic lupus erythematosus DIARRHEA, CHRONIC 168507413 (SNOMED CT) 06/17 Removed 06/17 Marilou Edwards 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 diarrhea IMMUNOCOMPRO MISED 266628636 (SNOMED CT) 06/17 Removed 06/17 Marilou Edwards RN Immunodeficienc y disorder HEPATITIS 416513144 (SNOMED CT) 06/17 Removed 06/17 Marilou Edwards RN Inflammatory disease of liver SEPSIS SYNDROME A41.9 (ICD-10-CM ) 06/17 Removed 06/17 Marilou Edwards RN Sepsis, unspecified organism Medications Medication Instructions Start Date Stop Date Generic Name NDC Provider PREDNISONE 20 MG TABS twice a day prednisone 07849397024 Yasmien Levine LEFLUNOMIDE 20 MG TABS leflunomide 34020901014 [facility] [place] KLOR-CON 20 MEQ PACK potassium chloride 79807458819 [facility] [place] ZOLPIDEM TARTRATE 10 MG TABS zolpidem 66788376252 [facility] [place] DORZOLAMIDE HCL-TIMOLOL MAL 2-0.5 % SOLN dorzolamide-timol ol 91929124780 [facility] [place] LISINOPRIL-HYDROC HLOROTHIAZIDE 10-12.5 MG TABS lisinopril-hydroc hlorothiazide 01004851702 [facility] [place] IMODIUM A-D TABLET IMODIUM A-D TABLET [facility] [place] DIGOXIN 125 MCG TABS digoxin 44761425429 [facility] [place] BUPROPION HCL 75 MG TABS bupropion hcl 76704507803 [facility] [place] OMEPRAZOLE 20 MG TBEC omeprazole 14213772586 [facility] [place] DIAZEPAM 5 MG TABS diazepam 90629215116 [facility] [place] SIMVASTATIN 20 MG TABS simvastatin 17006517376 [facility] [place] MECLIZINE HCL 25 MG TABS meclizine 17520041175 [facility] [place] IMURAN 50 MG TABS azathioprine 62062530382 [facility] [place] LATANOPROST 0.005 % SOLN latanoprost 18154847907 [facility] [place] DEPAKOTE 500 MG TBEC divalproex 39534097075 [facility] [place] PRIMIDONE 250 MG TABS primidone 87535760579 [facility] [place] TRAMADOL HCL 50 MG TABS tramadol 64676860453 [facility] [place] CYCLOBENZAPRINE HCL 5 MG TABS cyclobenzaprine 00851873071 [facility] [place] MITIGARE 0.6 MG CAPS colchicine 32316195451 Emil Elena METOCLOPRAMIDE HCL 10 MG TABS metoclopramide hcl 55092471828 Emil Elena CARBIDOPA-LEVODOP A 25-100 MG TABS carbidopa-levod op a 22087544027 Emil [place] BUMETANIDE 1 MG TABS bumetanide 87927212592 Emil [place] METHIMAZOLE 5 MG TABS methimazole 73030910396 Emil [place] BUPROPION HCL 100 MG TABS bupropion hcl 03788235277 Emil [place] CHLORTHALIDONE 25 MG TABS chlorthalidone 47233124776 Emil [place] PREDNISONE 5 MG TABS 03/19 prednisone 26623185840 Emil Lonoke DONEPEZIL HCL 10 MG TABS donepezil 17958350755 Emil Elena CITALOPRAM HYDROBROMIDE 10 MG TABS citalopram 96087421598 Emil Lonoke AZELASTINE HCL 0.1 % SOLN azelastine 55642897202 Emil Lonoke MONTELUKAST SODIUM 10 MG TABS montelukast 26962854368 Travi s Elena GABAPENTIN 300 MG CAPS gabapentin 96884464653 Emil Elena POTASSIUM CHLORIDE JONATHAN ER 20 MEQ CR-TABS potassium chloride 18637580083 Emil Elena TRAVOPROST (VALENTIN FREE) 0.004 % SOLN travoprost 04950541361 Emil Lonoke CARVEDILOL 12.5 MG TABS carvedilol 27002290419 Emil Elena IMODIUM A-D TABS 03/06 LOPERAMIDE HCL TABS 29353993305 Jaskaran Estrada MD COLESTID 1 GM TABS COLESTIPOL HCL 84535285547 Jaskaran Estrada MD DOXYCYCLINE HYCLATE 100 MG CAPS DOXYCYCLINE HYCLATE 18022728974 Jaskaran Estrada MD FLAGYL 500 MG ORAL TABLET METRONIDAZOLE 36160834319 Jaskaran Estrada MD LEVAQUIN 500 MG ORAL TABLET Take 1 tablet by mouth daily LEVOFLOXACIN 60149651991 Jaskaran Estrada MD FLAGYL 500 MG ORAL TABLET Take one (1) tablet by mouth three times a day METRONIDAZOLE 24624723479 Jaskaran Estrada MD DOXYCYCLINE HYCLATE 100 MG CAPS Take one (1) tablet by mouth twice a day DOXYCYCLINE HYCLATE 31276054915 Jaskaran Estrada MD DEPAKOTE 500 MG TBEC 12/27 DIVALPROEX SODIUM 53890674361 Rachna Myers RN OMEPRAZOLE 20 MG TBEC 03/06 OMEPRAZOLE 51767981014 Rachna Myers RN CYCLOBENZAPRINE HCL 5 MG TABS 0 03/20 CYCLOBENZAPRINE HCL 59775727638 Rachna Myers RN DIAZEPAM 5 MG TABS 0 03/20 DIAZEPAM 61141825690 Rachna Myers RN DIGOXIN 125 MCG TABS 03/20 DIGOXIN 42543988272 Rachna Myers RN TRAMADOL HCL 50 MG TABS 03/06 TRAMADOL HCL 42495329863 Rachna Myers RN SIMVASTATIN 20 MG TABS 03/06 SIMVASTATIN 56560366079 Rachna Myers RN DORZOLAMIDE HCL-TIMOLOL MAL 2-0.5 % SOLN 03/06 DORZOLAMIDE HCL-TIMOLOL MAL 20098736377 Rachna Myers RN LISINOPRIL-HYDROC HLOROTHIAZIDE 10-12.5 MG TABS 03/06 LISINOPRIL-HYDROC HLOROTHIAZIDE 90715500357 Rachna Myers RN LATANOPROST 0.005 % SOLN 03/06 LATANOPROST 39716907891 Rachna Myers RN COLESTID 1 GM TABS COLESTIPOL HCL 88264398768 Rachna Myers RN DOXYCYCLINE HYCLATE 100 MG CAPS 12/26 DOXYCYCLINE HYCLATE 60088034823 Rachna Myers RN FLAGYL 500 MG ORAL TABLET 0 METRONIDAZOLE 77956365615 Rachna Myers RN PRIMIDONE 250 MG TABS 11/16 PRIMIDONE 11189024765 Rachna Myers RN BUPROPION HCL 75 MG TABS 03/20 BUPROPION HCL 76244665277 Rachna Myers RN KLOR-CON 20 MEQ PACK 03/06 POTASSIUM CHLORIDE 23994695084 Rachna Myers RN ZOLPIDEM TARTRATE 10 MG TABS 03/06 ZOLPIDEM TARTRATE 53095646901 Rachna Myers RN MECLIZINE HCL 25 MG TABS 03/06 MECLIZINE HCL 91780931668 Rachna Myers RN LEFLUNOMIDE 20 MG TABS 03/06 LEFLUNOMIDE 09653778748 Rachna Myers RN IMURAN 50 MG TABS 03/06 AZATHIOPRINE 79301517358 Rachna Myers RN LEVAQUIN 500 MG ORAL TABLET Take 1 tablet by mouth daily 12/[address] [facility] FLAGYL 500 MG ORAL TABLET Take one (1) tablet by mouth three times a day METRONIDAZOLE 25726227803 [facility] DOXYCYCLINE HYCLATE 100 MG CAPS Take one (1) tablet by mouth twice a day 12/[address] [facility] Medications Administered No information available. Allergies, Adverse Reactions, Alerts Allergy Name Reaction Description Start Date Severity Statu s Provider PERCOCET Critical Active [facility] COMPAZINE Critical Active 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
--- OUTSIDE RECORDS SUMMARY | 2025-06-22 13:56 | XMS_ITS | Encounter Summary ---
Author Organization Healthcare Address [address] [place] [address] Care Team Providers Care Tour Operator Name Role Phone Miller Hazel MD Primary Care Provider [phone] Encounter Details Date Type Department Care Team (Late st Contact Info) Description 05/07/2025 Telephone [facility] [address] [place] [address] Annika Sheridan MD [address] [address] 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 Tobacco Use Types [...] avail slots for 05/08 Best contact number: [phone] (mobile) Optimal time of day to reach [...] Description 11/21/2025 10:15 AM EST Office Visit [facility] [address] [place] [address] Raymond Cano MD 110 [facility] [address] [place] [address] documented as of this encounter Visit Diagnoses Not on filedocumented in this encounter Additional Health Concerns Assessment Noted Time A fall risk assessment has been complete d for the patient 11/07/2024 11:20 AM EST A Body Mass Index follow-up plan has been documented for the patient 11/07/2024 12:26 PM EST documented as of this encounter Care Teams Tour Operator Relationship Specialty Start Date End Date Miller Hazel MD [address] [place] [address] PCP - General 08/04/21 documented as of this encounter
--- OUTSIDE RECORDS SUMMARY | 2025-06-22 13:56 | XMS_ITS | Clinical Summary ---
Author Organization [facility] Address [address] [place] [id number] Care Team Providers Care Whitewasher Name Role Phone Miller Hazel MD Primary Care Provider Allergies Active Allergy Reactions Criticality Noted Date [...] tablet Take 2 tablets by mouth Daily. terminologist 04/24/20 19 Active methIMAzole (TAPAZOLE) 5 MG [...] Moderate Pain. 30 tablet 12/19/19 25 Active metoclopramide (REGLAN) 5 MG tablet TAKE ONE TABLET BY MOUTH TWICE DAILY 30 minutes BEFORE meals 01/06/20 25 Active timolol (TIMOPTIC) 0.5 % ophthalmic solution 1 drop 2 (Two) Times a Day. Active empagliflozin (Jardiance) 25 MG tablet tablet TAKE ONE TABLET BY MOUTH EVERY DAY 30 tablet 3 05/07/20 25 Active albuterol sulfate HFA 108 (90 Base) MCG/ACT inhalerIndicat ions:COPD mixed type INHALE TWO PUFFS BY MOUTH EVERY 4 HOURS NEEDED FOR WHEEZING 18 g 4 06/06/20 25 Active albuterol sulfate HFA 108 (90 Base) MCG/ACT inhalerIndicat ions:COPD mixed type Inhale 2 puffs Every 4 (Four) Hours As Needed for Wheezing. 18 g 4 01/06/20 25 025 Discontinued Active Problems Problem Noted [...] 07/21/2015 Abdominal pain 07/20/2015 Coronary arteriosclerosis in [place] artery 07/20 Systemic lupus erythematosus 07/20/2015 Herniated lumbar intervertebral disc 07/03/2015 Spinal stenosis of lumbar region 07/03/2015 Low back pain 07/03/2015 Resolved Problems Problem Noted Date Diagnosed Date Resolved Date Pain in right knee 07/21/2015 5 Pain 07/20/2015 05/01/2025 Encounters Date Type Department Care Team Description 06/06/2025 Refill [facility] PULMONARY & CRITICAL CARE MEDICINE [address] [facility] [address] [place] [address] Winnie Laura APRN Mild COPD (Stage I) 05/16/2025 Telephone [facility] CARDIOLOGY [address] [facility] [address] [place] [address] MD [address]SHIH - SCHEDULING REQUEST 05/04/2025 Refill [facility] CARDIOLOGY [address] [facility] [address] [place] [address] Jerson Underwood MD Med Refill 05/01/2025 11:00 AM EDT Office Visit [facility] CARDIOTHORACIC SURGERY [address] [facility] [address] [place] [address] Radha Lowry APRN Stenosis of left carotid artery (Primary Dx) 05/01/2025 Travel 04/10/2025 Refill [facility]ARDIOLOGY [address] [facility] [address] [place] [address] Jerson Underwood MD Med Refill 03/29/2025 Telephone [facility] CARDIOLOG[facility] [address] [facility] [address] [place] [address] Jerson Underwood MD SHIH-CARDIAC CLEARANCE from Last 3 Months Immunizations Immunization Administration Dates Next Due COVID-19 (MODERNA) 1st,2nd,3 rd Dose Monovalent 12/18/2020,11/18/2020,10/30/2020 Flu Vaccine Quad PF >36MO 06/20/2018 Fluzone High-Dose 65+YRS 06/20/2024,05/2024,06/08/2022,2020,05/29/2020 Fluzone High-Dose 65+yrs 05/29/2024,06/22/2023 INFLUENZA SPLIT TRI [...] Autoimmune disease Niece 2 Arthritis Sister 1 [place] Cancer Sister 1 [place] Heart disease Sister 1 [place] Stroke Sister 2 Symone sister Parkinsonism Sister 3 Colon polyps Sister 4 Cancer Sister 5 Stroke Sister 9 Scynara Relation Name Status Comments Brother 1 Brother 2 Alive Father Dez age 50 due to suicide Maternal Grandfather Maternal Grandmother Mother Annemarie Almaguer age 60 due to alcoholism Niece 1 Alive Niece 2 Alive Paternal Grandfather Paternal Grandmother Sister 1 [place] Sister 2 Symone sister Alive Sister 3 Alive Sister 4 Alive Sister 5 Alive Sister 6 Alive Sister 7 Violet, Symone and Jessica Alive Sister 8 Symone Alive Sister 9 Mayela Alive 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 Tobacco Use Types Packs/Day [...] or training? Not on file Preferred Language Bruneian 12/08/2024 Comments No Sex and Gender Information [...] Description 07/10/2025 10:30 AM EDT Office Visit [facility] PULMONARY & CRITICAL CARE MEDICINE [address] [facility] [address] [place] [address] Winnie Laura, [employer] [address] [place] [address] 03/04/2026 10:45 AM EDT Office Visit [facility] CARDIOLOGY [address] [facility] [address] [place] [address] Jerson Underwood MD [address] [facility] [address] [place] [address] 05/01/2026 11:00 AM EDT Office Visit [facility] CARDIOTHORACIC SURGERY [address] [facility] [address] [place] [address] Radha Lowry, [employer] [address] [facility] [address] [place] [address] Health Maintenance Due Date Last Done Comments HEPATITIS C SCREENING 04/14/2019 DXA SCAN 04/12/2021 04/12/2019, 03/21, 02/17/2017 ANNUAL WELLNESS VISIT 09/18/2022 09/18/2021, 018 RSV Vaccine - Adults (1 - 1- dose 75+ series) 2022 LIPID PANEL 05/12/2024 05/12/2023, 0709/2022, 08/25/2022, Additional history exists INFLUENZA VACCINE 04/20/2025 06/20/2024, , 05/29/2024, Additional history exists COVID-19 Vaccine (2024-2 6 season) 2025 07/29/2023, 04/23/2022, 12/18/2020, Additional history exists TDAP/TD VACCINES (2 - [...] TEST Discontinued FIT Testing (1 year) Discontinued Medical Devices Implanted Type Area Research Microbiologist Device Identifier Shelf Expiration Date Model / Serial / Lot Denanoere Inhance Pls/4 32mm - [id number] Implanted:Q ty: 1 on 08/10/2023 by Jaskaran Simpson Jr., MD at [facility] Implant Right: Shoulder DEPUY SYNTHES 01/17/2027 [id number] / / [id number] Baseplt Modular Inhance 24mm Sm - [id number] Implanted:Q ty: 1 on 08/10/2023 by Jaskaran Simpson Jr., MD at [facility] Implant Right: Shoulder DEPUY SYNTHES 03/19/2028 [id number] / / [id number] Scrw Lk Inhance Slf/Drl 20/25mm - [id number] Implanted:Q ty: 1 on 08/10/2023 by Jaskaran Simpson Jr., MD at [facility] Implant Right: Shoulder DEPUY SYNTHES 05/20/2028 [id number] / / [id number] Scrw Centrl Inhance 6x35mm - [id number] Implanted:Q ty: 1 on 08/10/2023 by Jaskaran Simpson Jr., MD at [facility] Implant Right: Shoulder DEPUY SYNTHES 05/20/2027 [id number] / / [id number] Sut Nonabs Bone Dynacord Uhmwpe W/Os/6 Ndl 2pk Strip/Avery - [id number] Implanted:Q ty: 1 on 08/10/2023 by Jaskaran Simpson Jr., MD at [facility] Implant Right: Shoulder DEPUY MITEK [id number] / / Shll Hum/Shldr Inhance Rev Pls/O 32mm Sm - [id number] Implanted:Q ty: 1 on 08/10/2023 by Jaskaran Simpson Jr., MD at [facility] Implant Right: Shoulder DEPUY SYNTHES 07/20/2027 [id number] / / [id number] Stem Hum/Shldr Inhance 78w233mx Sm Std - [id number] Implanted:Q ty: 1 on 08/10/2023 by Jaskaran Simpson Jr., MD at [facility] Implant Right: Shoulder DEPUY 04/19/2028 [id number] / / [id number] Liner Hum/Shldr Inhance Rev Pls/0 Rt/Retnt 32mm - [id number] Implanted:Q ty: 1 on 08/10/2023 by Jaskaran Simpson Jr., MD at [facility] Implant Right: Shoulder DEPUY 07/20/2027 [id number] / / [id number] Cp Depuy Shldr Rev Inhance Centrl/Scrw - [id number] Implanted:Q ty: 1 on 08/10/2023 by Jaskaran Simpson Jr., MD at [facility] Implant Right: Shoulder DEPUY CAPSHLDREVINHANC EC ENTRLSCRW / / Cmt Bone Palacos R Hi/Visc 1x40 - [id number] Implanted:Q ty: 2 on 02/17/2024 by Naseem Brewer MD at [facility] Implant Left: Knee [employer] 07/20/2028 [id number] / / [id number] Dev Contrl Tiss Stratafix Spiral Mncryl Pls Ps 3/0 30cm Ud - [id number] Implanted:Q ty: 1 on 02/17/2024 by Naseem Brewer MD at [facility] Implant Left: Knee [employer] MARIA T [id number] / / [id number] Contrl Tiss Stratafix Symm Pds Plus Claudia Ct-1 60cm - [id number] Implanted:Q ty: 1 on 02/17/2024 by Naseem Brewer MD at [facility] Implant Left: Knee [employer] MARIA T [id number] / / Base Tib/Kn Gen2 Nonpor Ti Sz3 Lt - [id number] Implanted:Q ty: 1 on 02/17/2024 by Naseem Brewer MD at [facility] Implant Left: Knee ACE AND NEPHEW [id number] 08/19/2033 [id number] / / [id number] Comp Fem Legion Oxinium Ps Nrw Sz5n Lt - [id number] Implanted:Q ty: 1 on 02/17/2024 by Naseem Brewer MD at [facility] Implant Left: Knee [employer] NEP[employer]W [id number] 10/19/2033 [id number] / / [id number] Pat Resrf Gen2 7.5x29mm - [id number] Implanted:Q ty: 1 on 02/17/2024 by Naseem Brewer MD at [facility] Implant Left: Knee [employer]W [id number] 09/26/2033 [id number] / / [id number] Insrt Art/Kn Legion Ps Hf Xlpe Sz3to4 10mm - [id number] Implanted:Q ty: 1 on 02/17/2024 by Naseem Brewer MD at [facility] Implant Left: Knee ACE [employer] NEPHEW [id number] 11/04/2033 [id number] / / [id number] Totl Kn Atul Ace Nephew - [id number] Implanted:Q ty: 1 on 02/17/2024 by Naseem Brewer MD at [facility] Implant Left: Knee ACE [employer] NEPHEW [id number] / / Cmt Bone Palacos R Hi/Visc 1x40 - [id number] Implanted:Q ty: 2 on 12/14/2024 by Naseem Brewer MD at [facility] Implant Right: Knee [employer] 02/17/2029 [id number] / / [id number] Base Tib/Kn Gen2 Nonpor Ti Sz2 Rt - [id number] Implanted:Q ty: 1 on 12/14/2024 by Naseem Brewer MD at [facility] Implant Right: Knee AEC AND NEPHEW 04/26/2034 [id number] / / [id number] Pat Resrf Gen2 7.5x29mm - [id number] Implanted:Q ty: 1 on 12/14/2024 by Naseem Brewer MD at [facility] Implant Right: Knee ACE AND NEPHEW 05/23/2034 [id number] / / [id number] Comp Fem/Kn Legion Oxinium Ps Sz4 Rt - [id number] Implanted:Q ty: 1 on 12/14/2024 by Naseem Brewer MD at [facility] Implant Right: Knee ACE AND NEPHEW 06/26/2033 [id number] / / [id number] Insrt Art/Kn Legion Ps Hf Xlpe Sz1to2 9mm - [id number] Implanted:Q ty: 1 on 12/14/2024 by Naseem Brewer MD at [facility] Implant Right: Knee ACE AND NEPHEW 08/26/2027 [id number] / / [id number] Totl Kn Atul Ace Nephew - [id number] Implanted:Q ty: 1 on 12/14/2024 by Naseem Brewer MD at [facility] Implant Right: Knee ACE AND NEPHEW [...] - 5.60 % 12/08/2024 3:43 PM EDT [facility] Blood Venipuncture / Unknown 12/08/2024 2:35 PM EDT 12/08/2024 3:13 PM EDT Narrative [facility] - 12/08/2024 3:43 PM EDT Hemoglobin A1C Ranges: Increased Risk for Diabetes 5.7% to 6.4% Diabetes >= 6.5% Diabetic Goal < 7.0% Naseem Brewer MD LAB BLOOD ORDERABLES F inal Result [facility]
[address] [place] [address], * (ABNORMAL) Lipid Panel (05/12/2023 8:22 AM EDT) Total Cholesterol 184 0 - 200 mg/dL 05/12/2023 9:14 AM EDT [facility] Triglycerides 48 0 - 150 mg/dL 05/12/2023 9:14 AM EDT [facility] HDL Cholesterol 111(H) 40 - 60 mg/dL 05/12/2023 9:14 AM EDT [facility] LDL Cholesterol 63 0 - 100 mg/dL 05/12/2023 9:14 AM EDT [facility] VLDL Cholesterol 10 5 - 40 mg/dL 05/12/2023 9:14 AM EDT [facility] LDL/HDL Ratio 0.57 05/12/2023 9:14 AM EDT [facility] Blood Line / Unknown 05/12/2023 8: 22 AM EDT 05/12/2023 8:46 AM EDT Narrative [facility] - 05/12/2023 9:14 AM EDT Cholesterol [...] mg/dL Very High >189 mg/dL Mara Yost SLING[employer] SEQUINS LAB BLOOD ORDERABLES Final R esult [facility]
[address] [place] [address], * SCANNED - DEXA (04/12/2019) Anatomical Region Laterality Modality Other Jose Luis Hearn MD CHART REVIEW TABS Final Resul t from Last 3 Months or Most Recently Relevant to Health Maintenance Insurance MEDICAID [facility] MEDICARE ADVANTAGE [employer] HMO Advance Directives * CPR (Attempt to [...] Of Support Discussed With: Patient Care Teams Whitewasher Relationship Specialty Start Date End Date Miller Hazel MD [address] [facility] [address] [place] [address] PCP - General Adolescent Medicine 10/30/19
--- OUTSIDE RECORDS SUMMARY | 2025-06-22 13:56 | XMS_ITS | Encounter Summary ---
Author Organization [facility] y[facility] Address [address] [place] [address] Care Team Providers Care Sheet Rock Finisher Name Role Phone Miller Hazel MD Primary Care Provider [phone] Reason for Visit * Reason Comments Med Refill Encounter Details Date Type Department Care Team (Late st Contact Info) Description 05/04/[address] [facility] CARDIOLOGY [address] [facility] [address] [place] [address] Jerson Underwood MD [address] [address] [place] [address] Med Refill 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 Tobacco Use Types [...] or training? Not on file Preferred Language Montserratian 12/08/2024 Comments No Sex and Gender Information [...] Description 07/10/2025 10:30 AM EDT Office Visit [facility] PULMONARY & CRITICAL CARE MEDICINE [address] [facility] [address] [place] [phone] Winnie Laura, EXIT BOOTH AGENT [address] [place] [address] 03/04/2026 10:45 AM EDT Office Visit [facility] CARDIOLOGY [address] [facility] [address] [place] [address] Jerson Underwood MD [address] [facility] [address] [address] [place] [address] 05/01/2026 11:00 AM EDT Office Visit [facility] CARDIOTHORACIC SURGERY [address] [facility] [address] [place] [phone] Radha Lowry, EXIT BOOTH AGENT [address] [place] [address] documented as of this encounter Visit Diagnoses Not on filedocumented in this encounter Care Teams Sheet Rock Finisher Relationship Specialty Start Date End Date Miller Hazel MD [address] [facility] [address] [place] [address] PCP - General Adolescent Medicine 10/30/19 documented as of this encounter
--- OUTSIDE RECORDS SUMMARY | 2025-06-22 13:56 | XMS_ITS | Referral Summary ---
Author Organization [employer] ([place], [place], [place], [place]) Address [address] [place] [address] Care Team Providers Care Psychiatric Social Worker Supervisor Name Role Phone Miller Hazel MD Primary Care Provider [phone] Allergies Active Allergy Reactions Criticality Noted Date [...] Date Arnaud rded Speak language other than Greek at home Not on file 10/01/2023 Want [...] Plan of Treatment Not on file Insurance [facility] MEDIC[facility] PPO MEDICAID OF [place] Advance Directives For more information, please contact: [phone] * Full Code (Latest Code Status on File) Date Activated Date Inactivated Comments 06/30/2023 12:33 PM 07/06/2023 2:55 PM Care Teams Psychiatric Social Worker Supervisor Relationship Specialty Start Date End Date Miller Hazel MD [address] [place] [address] PCP - General Adolescent Medicine 06/30/23
--- OUTSIDE RECORDS SUMMARY | 2025-06-22 13:56 | XMS_ITS | Encounter Summary ---
[facility] Organization [facility] Address [address] [place] [address] Care Team Providers Care Loss Control Consultant Name Role Phone Miller Hazel MD Primary Care Provider [phone] Reason for Visit * Reason Comments Med Refill Encounter Details Date Type Department Care Team (Late st Contact Info) Description 06/06/2025 Refill [facility] PULMONARY & CRITICAL CARE MEDICINE [address] [facility] [address] [place] [address] Winnie Laura, DIRECTOR NURSES' REGISTRY [address] [place] [address] Mild COPD (Stage I) 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 Tobacco Use Types Packs/Day Years [...] or training? Not on file Preferred Language Northern Irish 12/08/2024 Comments No Sex and Gender Information [...] 10:30 AM EDT Office Visit [facility] PULMONARY & CRITICAL CARE MEDICINE [address] [facility] [address] [place] [address] Winnie Laura, DIRECTOR NURSES' REGISTRY [address] [place] [id number] 03/04/2026 10:45 AM EDT Office Visit [facility] CARDIOLOGY [address] [facility] [address] [place] [address] Jerson Underwood MD [address] [facility] [address] [place] [address] 05/01/2026 11:00 AM EDT Office Visit [facility] CARDIOTHORACIC SURGERY [address] [facility] [address] [place] [address] Radha Lowry, DIRECTOR NURSES' REGISTRY [address] [place] [address] documented as of this encounter Visit Diagnoses Diagnosis Mild COPD (Stage I) documented in this encounter Care Teams Loss Control Consultant Relationship Specialty Start Date End Date Miller Hazel MD [address] [facility] [address] [place] [address] PCP - General Adolescent Medicine 10/30/19 documented as of this encounter
--- OUTSIDE RECORDS SUMMARY | 2025-06-22 13:56 | XMS_ITS | Encounter Summary ---
[facility] Organization [facility] Address [address] [place] [address] Care Team Providers Care Bobbin Washer Name Role Phone Miller Hazel MD Primary Care Provider [phone] Reason for Visit * Reason Onset Date Comments - SCHEDULING REQUEST 05/16/2025 Encounter Details Date Type Department Care Team (Late st Contact Info) Description 05/16/2025 Telephone [facility] CARDIOLOGY [address] [facility] [address] [place] [address] Jerson Underwood MD [address] [facility] [address] [place] [address] - SCHEDULING REQUEST 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 Tobacco Use Types Packs/Day Years [...] or training? Not on file Preferred Language Russian 12/08/2024 Comments No Sex and Gender Information [...] encounter Miscellaneous Notes * Telephone Encounter - Pauly Sales RN - 05/16/2025 9:21 AM EDT Spoke with pt. She reports she woke up this morning with left cheek tightness and sharp pain down the left side of her neck. Rates pain 7-7.5/10. States she has never experienced this before. She is concerned given her hx of left carotid stenosis. Denies chest pain, sob, dizziness, headache, visionchanges, weakness, numbness, or tingling. Reports compliance with meds. Please advise. * Telephone Encounter - Deysi Barth RegSched Rep - 05/16/2025 8:52 AM EDT Caller: Yoko Jerez Relationship to patient: Self Best call back number: [phone] Chief complaint: PATIENT CONCERNED WITH A SHOOTING PAIN THAT SHE HAS ON HER NECK ON THE LEFT SIDE. STATES HER CHEEK IS SORE AND WAS ADVISED BY OFFICE TO FOLLOW UP WITH . Type of visit: FU documented in this encounter Plan of Treatment Upcoming Encounters Date Type Department Care Team (Late st Contact Info) Description 07/10/2025 10:30 AM EDT Office Visit [facility] PULMONARY & CRITICAL CARE MEDICINE [address] [facility] [address] [place] [phone] Winnie Laura, OFFICE SUPPORT SPECIALIST [address] [place] [address] 03/04/2026 10:45 AM EDT Office Visit [facility] CARDIOLOGY [address] [facility] [address] [place] [address] Jerson Underwood MD [address] [facility] [address] [place] [address] 05/01/2026 11:00 AM EDT Office Visit [facility] CARDIOTHORACIC SURGERY [address] [facility] [address] [place] [phone] Rdaha Lowry, OFFICE SUPPORT SPECIALIST [address] [facility] [address] [place] [address] documented as of this encounter Visit Diagnoses Not on filedocumented in this encounter Care Teams Bobbin Washer Relationship Specialty Start Date End Date Miller Hazel MD [address] [facility] [address] [place] [address] PCP - General Adolescent Medicine 10/30/19 documented as of this encounter
--- OUTSIDE RECORDS SUMMARY | 2025-06-22 13:56 | XMS_ITS | Continuity of Care Document ---
Author Organization [facility], NEUROSURGERY [address] [place] [address] Care Team Providers Care Babysitter Name Role Phone KANE RADHA Primary Care Provider ADOLFO HALL Surveillance Camera Technician NNAMDISUDHIR SANTANA Pilot Submersible Unavailabl e Assessment Encounter Date Assessment Date Assessment LastModified by Organization Details LastModified Time 06/06/2025 06/06/2025 MRI lumbar and thoracic spine. 05/17/2025. [facility]. Images reviewed by Dr. Felton and myself. Chronic compression fracture at T9 above her previous fusion Ms. Jerez is a 79-year-old female status post T10 through iliac fusion with Dr. Amezquita in [address]. [address] Felton discussed with her [...] Time Details Appointments RHEUM RECHECK 2024 10:45A Griffin HALL MD Not available Not available Not available MRI 2024 10:00A M MRI Not available Not available Not available CT SCAN 2024 10:20A M ct_scan Not available Not available Not available CT SCAN 2024 10:20A M ct_scan Not available Not available Not available RECHECK 2024 10:30A M [place] [employer] Not available Not available Not available NEUROLOG Y RECHECK 2025 10:30A M NEENA DEVI DO Not available Not available Not available Lab None recorded . Referral None recorded . Procedures None recorded . Surgeries None recorded . Imaging None recorded . Medication Orders None recorded . Patient TargetsNo targets recorded. Patient InstructionsNo instructions recorded. Reason for Referral None Reported. Results Created Date Observation Date Name Description Value Unit Range Abnormal Flag Note LastModifiedBy Organization Detail LastModifiedTime 05/21/20 25 05/17/2025 MRI, thora cic spine , w/o contr ast [place] [address] [place] [address] Patien t Name: AREN JEREZ Patien t : 948 Patien t 1 Orderi ng Provid er: ZEHRA LARIOS EXAM DATE: 2024 EXAM: MR THORAC IC W/O CONTRA ST HISTOR Y: 79-yea r-old female with chroni c mid and low back pain radiat ing to the left hip. COMPAR MAIXMUS: None. FINDIN GS: There is a probab le old compre ssion fractu re of the T10 verteb ral body. There is osseou s fusion at T9-T10 . There is case picker ior fusion extend ing from T10 throug h the lumbar spine. There is parama gnetic artifa ct from the pedicl e screws and case picker ior fusion hardwa re. There is focal kyphos is at T9-T10 and kyphos is of the upper thorac ic spine. There is no acute fractu re. There is mild anteri or margin al osteop hytic spurri ng. No pathol ogic lesion is identi fied in the thorac ic spine. The visual ized spinal cord appear s normal . There is modera te case picker ior spurri ng at T9-T10 . There [...] fusion at T9-T10 . 2. There is case picker ior fusion extend ing from T10 throug h the lumbar spine. Interp reted By: Charlene ochoa MD Electr onical ly Signed By: Charlene ochoa MD on 05/21/20 10:[address], [address], 05/23/2025 12:48:07 05/21/2005/17/2025 MRI, lumba r spine , w/o contr ast [address] [address] [phone] Patimayra t Name: AREN Plasencia t : 948 Patien t 1 Orderi ng Provid er: ZEHRA LARIOS EXAM DATE: 2024 EXAM: MR LUMBAR W/O CONTRA ST HISTOR Y: 79-yea r-old female with chroni c mid and low back pain radiat ing to the left hip. COMPAR MAXIMUS: Radiog raph dated 04/24/20 25 and MRI dated 018 FINDIN GS: There is case picker ior fusion and joselyn ctomie s extend ing from T10 throug h the sacrum . There is parama gnetic artifa ct from the pedicl e screws and case picker ior fusion hardwa re. There are prior [...] ing at L5-S1. 2. There is prior case picker ior fusion and joselyn ctomie s extend ing from T10 throug h the sacrum . Interp reted By: Charlene ochoa MD Electr onical ly Signed By: Charlene ochoa MD on 05/21/20 10:[address] Radiology [facility] [address] [place], [address], 05/23/2025 12:47:59 Result Notes None recorded. 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 Active Jovita (Vani) Croley [facility] 12:07:45 History of respirat ory disease 290862400 Active Jovita (Vani) Rody [facility] 12:07:45 Degenera tive disorder of macula 594519341 Active Jovita (Vani) Croley [facility] 12:07:46 Backache 013446635 Active Jovita (Vani) Маринаley [facility] 12:07:46 Disorder of thyroid gland 39528893 Active Jovita (Vani) Croley [facility] 9 12:07:46 Kidney stone 93353227 Active Jovita (Vani) Croley [facility] 12:07:46 Bilatera l cataract s 19239609 Active Jovita (Vani) Croley [facility] 9 12:07:46 Pancreat itis 43344034 Active Jovita (Vani) Croley [facility] 9 12:07:46 Chronic diarrhea 398295955 Active Jovita (Vani) Croley [facility] 9 12:07:46 Anemia 417345773 Active Jovita (Vani) Croley [facility] 9 12:07:46 Coronary arterios clerosis 24011419 Active Jovita (Vani) Croley null, [facility] 9 12:07:46 Impairme nt of balance 008559335 Active Jovita (Vani) Croley null, [facility] 9 12:07:46 Urinary tract infectio us disease 66496078 Active Jovita (Vani) Croley null, [facility] 9 12:07:46 Glaucoma 36547480 Active Jovita (Vani) Croley null, [facility] 9 12:07:46 Rheumato id arthriti s 01610505 Active Jovita (Vani) Croley null, [facility] 9 12:07:46 Neck pain 52455460 [facility] 12:07:46 Spinal stenosis 52491662 Active Jovita (Vani) Croley null, [facility] 9 12:07:46 Migraine 27902543 Active Jovita (Vani) Croley null, [facility] 9 12:07:46 Wears glasses 241202118 Active Jovita (Vani) Croley null, [facility] 9 12:07:46 Sinusiti s 55457396 Active Jovita (Vani) Croley null, [facility] 9 12:07:46 Peripher al nerve disease 019940631 Active Jovita (Vani) Croley null, [facility] 9 12:07:46 Gastroes ophageal reflux disease 782338039 Active Jovita (Vani) Croley null, [facility] 9 12:07:46 Deep venous thrombos is 923580705 Active Jovita (Vani) Croley null, [facility] 9 12:07:46 Hyperlip idemia 56348285 Active Jovita (Vani) Croley null, [facility] 9 12:07:46 Acute poliomye litis 181895042 Active 1954 Jovita (Vani) Rody [facility] 9 12:07:46 Systemic lupus erythema tosus 11868364 Active 1989 Jovita (Vani) Маринаumair [facility] 9 12:07:46 Prolapse d lumbar interver tebral disc 062215484 Active 2014 From Automate d Load;Pro vider: Eloy Amezquita; Status: Active [facility] 9 12:07:46 Low back pain 714471995 Active 2014 Provider : Eloy Amezquita; Status: Active Jovita (Vani) [facility]air [facility] 9 12:07:46 Spinal stenosis of lumbar region 08792893 Active 2014 From Automate d Load;Pro vider: Eloy Amezquita; Status: Active Jovita (Vani) [facility] 9 12:07:46 Coronary arterios clerosis in [place] artery 43682767329 07 Active 2014 From Automate d Load;Pro vider: Zain , Josh;St atus: Active Jovita (Vani) [facility]air [facility] 9 12:07:46 Abdomina l pain 98180181 Active 2014 From Automate d Load;Pro vider: Zain , Josh;St atus: Active J[facility]ita (Vani) [facility] 9 12:07:46 Pain 09305926 Active 2014 From Automate d Load;Pro vider: Zain , Josh;St atus: Active Jovita (Vani) [facility]air [facility] 9 12:07:45 Blood in urine 57851898 Active 2014 From Automate d Load;Pro vider: Zain , Josh;St atus: Active Jovita Fine (Camille) [facility] 9 12:07:46 Pain in right knee Active 2014 From Automate d Load;Pro vider: Josh Pittman; atus: Active J[facility]ita tsang (Camille[facility] 9 12:07:46 Hyperten sive disorder 87425150 Active 2014 From Automate d Load;Pro vider: Josh Pittman; atus: Active [facility] 23:35:13 Idiopath ic osteoart hritis 513436797 Active 2014 From Automate d Load;Pro vider: Herminia Orr;Status : Active Jovita Fine (Camille) [facility] 9 12:07:45 Pain in left knee Active 2014 From Automate d Load;Pro vider: Malu Luna;Reji tatus: Active Jovita Fine (Camille) [facility] 9 12:07:46 Migraine without aura, not refracto ry 445912588 Completed 201506/07/2019 From Automate d Load;Pro vider: Geronimo Dahl; atus: Active Susan Colon [facility] 9 12:53:55 Lumbosac ral radiculo bob 3648081 Active 2015 From Automate d Load;Pro vider: Eloy Amezquita; Status: Active Jovita Fine (Camille) [facility] 9 12:07:46 Chronic headache disorder 526094403 Active 2018 Susan Colon [facility] 9 12:53:51 Neuropat hy 161939250 Active 2019 Jovita Fine (Camille) [facility] 0 12:46:05 Memory impairme nt 700425384 Active 2019 Jovita Wright) Rody [facility] 0 12:46:19 Vertigo 555316814 Active 2020 [facility] 16:06:43 Parkinso n's disease 92302652 Active 2024 NEENA Conrado DEVI, DO [address] [place] [address], [phone] , [facility] 5 11:21:53 Abnormal gait due to muscle weakness 562361016 Active 2024 NEENA DEVI, DO [address] [place] [address], [phone] , [facility] 11:21:53 Idiopath ic peripher al neuropat hy 62272530 Active 2024 NEENA DEVI, DO [address] [place] [address], [phone] , [facility] 11:02:22 Notes:Some problems listed i n Document: #[id number] could not be added to this patient's chart. Please review this document and add these problems to the patient's chart manually as needed. Problem Notes None recorded. Procedures Surgical History Date Name Laterality Status Provider Name and Address Organization Details Recorded Time 04/09/20 Caudal CYNDI Addie completed JULIANNA ERAL MD [address] [place] [address], [phone] [place] [address] 04/09/2025 17:22:39 12/06/19 25 total knee replacement completed Bakari Moe [facility] 04/24/2025 10:45:14 11/14/19 25 dental surgical procedure completed Catrina Us [facility] 12/05/2024 11:13:30 09/18/20 24 Caudal CYNDI Addie completed JULIANNA REAL MD [address] [place] [address], [phone], [facility] 09/18/2024 14:11:05 07/27/20 24 Joint Injection, Knee - Addie completed JULIANNA REAL MD [address] [place] [address], [phone], [facility] 07/27/2024 13:58:38 11/05/20 24 Post Void Residual; Ultrasound completed [place], KELSIE [address] [place], [address], [facility] 07/25/2024 11:36:57 05/16/20 24 Caudal CYNDI Addie completed JULIANAN REAL MD [address] [place], [address], [facility] 05/16/2024 12:49:14 04/20/20 24 Joint Injection, Knee - Addie completed JULIANNA REAL MD [address] [place], [address], [facility] 04/20/2024 11:47:04 02/08/20 24 total knee replacement completed Shayy Pathak [facility] 05/16/2024 10:52:57 01/31/20 24 Joint Injection, Knee - Addie completed JULIANNA REAL MD [address] [place], [address], [facility] 01/31/2024 15:34:35 01/20/20 24 Post Void Residual; Ultrasound completed RADHA JOHNSTON MD [address] [place], [address], [facility] 01/20/2024 11:50:18 01/11/20 24 Caudal CYNDI Addie completed JULIANNA REAL MD [address] [place], [address], [facility] 01/11/2024 13:44:46 11/23/19 24 Post Void Residual; Ultrasound completed Chaparrita Gómez [facility] 11/23/2023 11:05:50 10/21/19 24 Joint Injection, Knee - Addie completed JULIANNA REAL MD [address] [place], [address], [facility] 10/21/2023 13:59:42 10/07/19 24 Caudal CYNDI Addie completed JULIANNA REAL MD [address] [place], [address], [facility] 10/07/2023 12:03:23 08/31/20 Trigger Point Injections - Addie completed ZEHRA LARIOS PA-C [address] [place], [address], [facility] 08/31/2023 15:18:07 07/12/20 Lumbar Transforaminal Epidural Injection - Addie completed JULIANNA REAL MD [address] [place], [address], [facility] 07/12/2023 12:44:44 01/28/20 Monovisc Injection completed HEAVEN GRAHAM PA-C [address] [place], [address], [facility] 02/09/2023 13:19:06 08/06/20 LIGATION OR BIOPSY, TEMPORAL ARTERY (SURG) completed Iraida Beyer [facility] 08/07/2020 14:34:42 Back Surgery completed Kati Johnsonholz [facility] 05/10/2018 14:27:13 Shoulder joint surgery completed Kati Rakan [facility] 05/10/2018 14:27:30 Tubal Ligation completed Natalia Paul [facility] 11/17/2023 11:49:05 placement of stent in cardiac conduit completed Natalia Paul [facility] 11/17/2023 11:49:20 Shoulder joint surgery completed Shayy Pathak [facility] 05/16/2024 10:52:23 Imaging Results None recorded. Procedure Notes None recorded. Medical Equipment None Reported. Allergies Allergen ID Allergen Name Allergen Category Reaction Reaction Severity Criticality Documentation Date Start Date Code Code System Note Provider Name and Address Organization Details Recorded Time 238112 Compazine medicatio n Not available Not available Not available 08/13/2016201254 6 RxNorm Comme nt: Creat ed By: Deny tamayo Date: 07/19 10:31 :05 AM; Natalia Paul sharan, [facility] 13:19:43 232152 acetamino phen / oxycodone medicatio n hallucina tions Not available Not available 08/13/20162012 11203 3 RxNorm [facility] 13:19:26 486917 aspirin medicatio n Not available Not available Not available 08/13/20162015 1191 RxNorm Comme nt: Creat ed By: Owen goldenCre ated Date: 2015 2:57: 49 PM; [facility] 3 10:56:39 652687 prochlorp erazine medicatio n seizure Not available Not available 06/07/2019 8704 RxNorm Paddy zine [facility] 3 13:19:09 588873 aspirin medicatio n Not available Not available Not available 06/07/2019 1191 RxNorm 'Rhina l funct ion tests abnor mal'. Natalia Paul [facility] 3 13:19:59 839288 baclofen medicatio n other Not available Not available 05/03/2025 1292 RxNorm High B/P, odinky Catrina York [facility] 5 11:41:26 Medications Name Sig Start Date [...] as needed by oral route. 2024 active [facility]: [phone] 0-61 Not Available Not Available Not [...] Not Available Vitals Date Recorded Body height Provider Name an d Address Organization Details Last Updated DateTime 06/06/2025 162.56 cm Octavia Quinn [facility] 06/06/2025 09:09:05 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 Question Answer Notes LastModified by Organizat ion Details LastModified Time Tobacco Smoking Status Former Smoker Kati Johnsonholz [facility] 05/10/2018 14:27:07 How Much Tobacco Do You Chew? None [email or web address] Information not available 06/07/2019 Which Illicit Or Recreational Drugs Have You Used? No [email or web address] Information not available 06/06/2020 Marital Status Junior Informatio n not available 06/07/2019 What Was The Date Of Your Most Recent Tobacco Screening? 04/24/2025 [email or web address] Information not available 04/24/2025 What Is Your Relationship Status? [email or web address] Information not available 08/31/2024 How Much Tobacco Do You Smoke? No [email or web address] Information not available 06/07/2019 Sex: Unknown Functional Status Question Answer Note LastModified by Organizat ion Details LastModified Time What is your level of alcohol consumption? None [email or web address] Information not available 06/07/2019 Do you or have you ever used smokeless tobacco? Never used smokeless tobacco [email or web address] Information not available 06/07/2019 Are you currently employed? No [email or web address] Information not available 08/31/2024 What is your occupation? retired Information not available 06/07/2019 Do you or have you ever used e-cigarettes or vape? Never used electronic cigarettes [email or web address] Information not available 06/07/2019 Mental Status None [...] Osteoporosis/Osteopenia Y Stomach trouble Y Heart Attack ([place]) N Diabetes N Anxiety Disorder Y Bleeding [...] virus, quadrivalent, preservative 8 completed Wendie Rozina [facility] 06/07/2019 11:53:21 pneumococcal, unspecified formulation 7 completed Wendie Rozina [facility] 06/07/2019 11:53:21 Influenza, split virus, quadrivalent, preservative 0 completed Jovita (Vani) Rody [facility] 06/06/2020 12:05:59 SARS-COV-2 (COVID-19) vaccine, UNSPECIFIED 1 completed Mare Bledsoe [facility] 03/18/2021 09:39:59 SARS-COV-2 (COVID-19) vaccine, UNSPECIFIED 1 completed Mare Bledsoe [facility] 03/18/2021 09:40:02 Influenza, split virus, quadrivalent, preservative 0 completed Mare Bledsoe [facility] 03/18/2021 09:40:14 Past Encounters Encounter ID Performer Location Encounter Start Date Encounter Closed Date Diagnosis/Indication Diagnosis SNOMED-CT Code Diagnosis ICD10 Code Diagnosis IMO Codes Diagnosis Note [id number] NAUHN DUDLEY PA-C [facility] [address] [place] [address] 06/06/2025 09:07:58 06/14/2025 06:29:20 Thoracic spondylosis 569318447 M47.814 29234 Lumbar radiculopathy 128 128877 M54.16 74315 Cervical radiculopathy 88382456 M54.12 [id number] Health Concerns Section Related Observation LastModified by Organization Detai ls LastModified Time None Recorded Concern Status LastModified by Organization Details LastModified Time None Recorded Payers Encounter Date Sequence Insurance Name Policy Number Policy Pearl Covered Member ID Pearl Member ID Guarantor Name 06/06/2025 1 [employer] (MEDICARE REPLACEMENT/ ADVANTAGE - PPO) Yoko Jerez [id number] Yoko Jerez 06/06/2025 2 [place] [employer] - FFS/TRADITIO NAL Yoko Jerez [id number] Yoko Jerez Notes Date Note Type Note Provider Name and Address Organization Details Recorded Time 06/06/2025 text/html Ms. Jerez is status post a fusion extension to include T10 through iliac screws with Dr. Eloy Amezquita on 12/24/2020. Since that time she has [...] some decreased balance. NAHUN DUDLEY PA-C [address] [place], [address], [facility] 06/06/2025 16:39:03 OBGyn Episode No OBEpisode recorded.
[2025-06-22 14:00] LABS: Microscopic, Urine URINE MICROSCOPIC (MICROSCOPIC)
[2025-06-22 14:48] LABS: Hematocrit 39.2 % (37.0-47.0); Hemoglobin 12.3 g/dL (12.2-16.2); Immature Granulocytes % 0.3 %; Mean Corpuscular HGB Conc 31.4 g/dL (31.8-35.4); Mean Corpuscular Hemoglobin 26.7 pg (27.0-31.2); Mean Corpuscular Volume 85.0 fl (81-99); Nucleated Red Blood Cells % 0 %; Platelet Count 280 K/mm3 (142-424); Red Blood Count 4.61 M/mm3 (4.20-5.40); Red Cell Distribution Width-SD 53.1 fL; White Blood Count 7.1 K/mm3 (4.8-10.8)
[2025-06-22 15:13] LABS: Bilirubin,Urine Negative (Negative); Color,Urine YELLOW (Yellow); Glucose,Urine (UA) 3+ (Negative); Ketones,Urine Negative (Negative); Leukocyte Esterase,Urine Negative (Negative); PH,Urine 5.5 (5.0-8.5); Protein,Urine Negative (Negative); Specific Gravity, Urine <= 1.005 (1.005-1.030); Urobilinogen,Urine 0.2 EU/dl (0.2)
[2025-06-22 15:27] LABS: Bacteria,Urine 1+ /lpf; WBC,Urine Occasional #/hpf (0-3)
[2025-06-22 15:50] LABS: Albumin Level 4.0 g/dl (3.5-5.0); Chloride 100 mmol/L (98-107); Potassium 4.5 mmoL/L (3.5-5.1); Sodium 137 mmol/L (136-145)
[2025-06-22 15:53] LABS: Alanine Aminotransferase 13 U/L (12-78); Albumin/Globulin Ratio 1.4 (1.1-1.8); Alkaline Phosphatase 231 U/L (38-126); Anion Gap 15.5 mEq/L (5-15); Aspartate Amino Transferase 26 U/L (14-36); Blood Urea Nitrogen 26 mg/dl (7-17); Calcium 9.9 mg/dl (8.4-10.2); Carbon Dioxide 26 mmol/L (22.0-30.0); Creatinine,Serum 1.50 mg/dl (0.52-1.04); Estimated Glomerular Filt Rate 34 ml/min (>60); GFR (African American) 41 ML/MIN (>60); Globulin 2.8 g/dL (1.3-3.2); Glucose 107 mg/dl (74-100); Total Protein,Serum 6.8 g/dl (6.3-8.2)
[2025-06-22 16:11] LABS: Bilirubin,Total < 0.2 mg/dl (0.2-1.3)
[2025-06-22 18:05] LABS: Uric Acid 5.2 mg/dl (2.5-6.2)
== END 2025-06-22 23:59 | disposition home or self-care (01) ==
LOC: LAB 13:52
PROVIDERS: PCP Nurse Practitioner Family; Visit Provider Internal Medicine Rheumatology
DX: M32.19 Other organ or system involvement in systemic lupus erythematosus (principal)
CPT/HCPCS: 36415; 80053; 81001; 84550; 85025; 85651; 86160

== ENCOUNTER 2025-07-23 10:12 | Outpatient (CLI) | payer MEDICARE, MEDICAID, SELFPAY ==
--- OUTSIDE RECORDS SUMMARY | 2025-07-23 10:18 | XMS_ITS | Clinical Summary ---
Author Organization [facility] Address [address] [place] [address] Phone Care Team Providers Care Plugging Machine Operator Name Role Phone Jerry MEJIAS, Marilou Unavailable Unavailable Conditions or Problems Problem Name Problem Code Onset Date Status Entry Date Provider Comment Standard Description Annotate Kidney disease, chronic, stage II 514603429 (SNOMED CT) 03/06 Active 03/06 Bobo Vizcarra MD Chronic kidney disease stage 2 UTI, recurrent 181120407 (SNOMED CT) 03/06 Active 03/06 Bobo Vizcarra MD Recurrent urinary tract infection DIARRHEA, CHRONIC 118089745 (SNOMED CT) 06/17 Active 06/17 Bobo Vizcarra MD Chronic diarrhea SYSTEMIC LUPUS ERYTHEMATOSU S 97607434 (SNOMED CT) 06/17 Active 06/17 Bobo Vizcarra MD Systemic lupus erythematosus IMMUNOCOMPRO MISED 537034886 (SNOMED CT) 06/17 Active 06/17 Bobo Vizcarra MD Immunodeficienc y disorder RHEUMATOID ARTHRITIS 25152636 (SNOMED CT) 06/17 Active 06/17 Bobo Vizcarra MD Rheumatoid arthritis C. Difficile colitis, recurrent 58708138 (SNOMED CT) 03/05 Active 03/05 Martine Damir Enterocolitis DIARRHEA, CHRONIC 370635297 (SNOMED CT) 06/17 Resolved 06/17 Martine Damir Chronic diarrhea LEUKOPENIA 63830558 (SNOMED CT) 06/17 Resolved 06/17 Martine Damir Leukopenia RHEUMATOID ARTHRITIS 04053973 (SNOMED CT) 06/17 Resolved 06/17 Martine Damir Rheumatoid arthritis THROMBOCYTOP ENIA 644469832 (SNOMED CT) 06/17 Resolved 06/17 Martine Reich Thrombocytopeni c disorder SYSTEMIC LUPUS ERYTHEMATOSU S 38218631 (SNOMED CT) 06/17 Resolved 06/17 Martine Reich Systemic lupus erythematosus HEPATITIS 709441373 (SNOMED CT) 06/17 Resolved 06/17 Martine Reich Inflammatory disease of liver ANEMIA 183586977 (SNOMED CT) 06/17 Resolved 06/17 Martine Reich Anemia IMMUNOCOMPRO MISED 561982366 (SNOMED CT) 06/17 Resolved 06/17 Martine Reich Immunodeficienc y disorder SEPSIS SYNDROME A41.9 (ICD-10-CM ) 06/17 Resolved 06/17 Martine Reich Sepsis, unspecified organism THRUSH 68784914 (SNOMED CT) Resolved Martine Reich Candidiasis THRUSH 76982245 (SNOMED CT) Removed Jaskaran Estrada MD Candidiasis RHEUMATOID ARTHRITIS 36792697 (SNOMED CT) 06/17 Removed 06/17 Marilou Edwards RN Rheumatoid arthritis ANEMIA 645865910 (SNOMED CT) 06/17 Removed 06/17 Marilou Edwards RN Anemia THROMBOCYTOP ENIA 296747311 (SNOMED CT) 06/17 Removed 06/17 Marilou Edwards RN Thrombocytopeni c disorder LEUKOPENIA 96141567 (SNOMED CT) 06/17 Removed 06/17 Marilou Edwards RN Leukopenia SYSTEMIC LUPUS ERYTHEMATOSU S 06493163 (SNOMED CT) 06/17 Removed 06/17 Marilou Edwards RN Systemic lupus erythematosus DIARRHEA, CHRONIC 895651652 (SNOMED CT) 06/17 Removed 06/17 Marilou Edwards 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 IMMUNOCOMPRO MISED 407022641 (SNOMED CT) 06/17 Removed 06/17 Marilou Edwards RN Immunodeficienc y disorder HEPATITIS 134311965 (SNOMED CT) 06/17 Removed 06/17 Marilou Edwards RN Inflammatory disease of liver SEPSIS SYNDROME A41.9 (ICD-10-CM ) 06/17 Removed 06/17 Marilou Edwards RN Sepsis, unspecified organism Medications Medication Instructions Start Date Stop Date Generic Name NDC Provider PREDNISONE 20 MG TABS twice a day prednisone 89507770088 Yasmine Levine LEFLUNOMIDE 20 MG TABS leflunomide 02605034687 [facility] [place] KLOR-CON 20 MEQ PACK potassium chloride 57702912588 [facility] [place] ZOLPIDEM TARTRATE 10 MG TABS zolpidem 46533556215 [facility] [place] DORZOLAMIDE HCL-TIMOLOL MAL 2-0.5 % SOLN dorzolamide-timol ol 06821829816 [facility] [place] LISINOPRIL-HYDROC HLOROTHIAZIDE 10-12.5 MG TABS lisinopril-hydroc hlorothiazide 07899942107 [facility] [place] IMODIUM A-D TABLET IMODIUM A-D TABLET [facility] [place] DIGOXIN 125 MCG TABS digoxin 23095013457 [facility] [place] BUPROPION HCL 75 MG TABS bupropion hcl 93870532991 [facility] [place] OMEPRAZOLE 20 MG TBEC omeprazole 62911416946 [facility] [place] DIAZEPAM 5 MG TABS diazepam 46596951984 [facility] [place] SIMVASTATIN 20 MG TABS simvastatin 85869234420 [facility] [place] MECLIZINE HCL 25 MG TABS meclizine 99180315699 [facility] [place] IMURAN 50 MG TABS azathioprine 11650934302 [facility] [place] LATANOPROST 0.005 % SOLN latanoprost 24617736794 [facility] [place] DEPAKOTE 500 MG TBEC divalproex 72871656210 [facility] [place] PRIMIDONE 250 MG TABS primidone 52538990234 [facility] [place] TRAMADOL HCL 50 MG TABS tramadol 97910631619 [place] [place] CYCLOBENZAPRINE HCL 5 MG TABS cyclobenzaprine 76425414866 [place] [place] MITIGARE 0.6 MG CAPS colchicine 23961102978 Emil [place] METOCLOPRAMIDE HCL 10 MG TABS metoclopramide hcl 98332923843 Emil Elena CARBIDOPA-LEVODOP A 25-100 MG TABS carbidopa-levod op a 90000543139 Emil [place] BUMETANIDE 1 MG TABS bumetanide 14757281375 [place]il [place] METHIMAZOLE 5 MG TABS methimazole 28136493778 Emil Elena BUPROPION HCL 100 MG TABS bupropion hcl 63501441432 Emil Elena CHLORTHALIDONE 25 MG TABS chlorthalidone 00377439869 [place]il [place] PREDNISONE 5 MG TABS 03/19 prednisone 13236570532 Emil Elena DONEPEZIL HCL 10 MG TABS donepezil 73068072550 [place] CITALOPRAM HYDROBROMIDE 10 MG TABS citalopram 29214704337 Emil Elena AZELASTINE HCL 0.1 % SOLN azelastine 49438183768 Emil [place] MONTELUKAST SODIUM 10 MG TABS montelukast 88726260488 Travi [facility] Elena GABAPENTIN 300 MG CAPS gabapentin 40801048322 Emil Elena POTASSIUM CHLORIDE JONATHAN ER 20 MEQ CR-TABS potassium chloride 41619871305 [place]il [place] TRAVOPROST (VALENTIN FREE) 0.004 % SOLN travoprost 87186388426 [place]il [place] CARVEDILOL 12.5 MG TABS carvedilol 70494705477 Em[place] IMODIUM A-D TABS 03/06 LOPERAMIDE HCL TABS 28798866539 Jaskaran Estrada MD COLESTID 1 GM TABS COLESTIPOL HCL 56000238329 Jaskaran Estrada MD DOXYCYCLINE HYCLATE 100 MG CAPS DOXYCYCLINE HYCLATE 61983620406 Jaskaran Estrada MD FLAGYL 500 MG ORAL TABLET METRONIDAZOLE 97092358383 Jaskaran Estrada MD LEVAQUIN 500 MG ORAL TABLET Take 1 tablet by mouth daily LEVOFLOXACIN 55484573629 Jaskaran Estrada MD FLAGYL 500 MG ORAL TABLET Take one (1) tablet by mouth three times a day METRONIDAZOLE 60860530014 Jaskaran Estrada MD DOXYCYCLINE HYCLATE 100 MG CAPS Take one (1) tablet by mouth twice a day DOXYCYCLINE HYCLATE 75443646439 Jaskaran Estrada MD DEPAKOTE 500 MG TBEC 12/27 DIVALPROEX SODIUM 47468534533 Rachna Myers RN OMEPRAZOLE 20 MG TBEC 03/06 OMEPRAZOLE 60019045525 Rachna Myers RN CYCLOBENZAPRINE HCL 5 MG TABS 0 03/20 CYCLOBENZAPRINE HCL 10615050320 Rachna Myers RN DIAZEPAM 5 MG TABS 0 03/20 DIAZEPAM 82288146987 Rachna Myers RN DIGOXIN 125 MCG TABS 03/20 DIGOXIN 51270970449 Rachna Myers RN TRAMADOL HCL 50 MG TABS 03/06 TRAMADOL HCL 50613273112 Rachna Myers RN SIMVASTATIN 20 MG TABS 03/06 SIMVASTATIN 83705536497 Rachna Myers RN DORZOLAMIDE HCL-TIMOLOL MAL 2-0.5 % SOLN 03/06 DORZOLAMIDE HCL-TIMOLOL MAL 78466297224 Rachna Myers RN LISINOPRIL-HYDROC HLOROTHIAZIDE 10-12.5 MG TABS 03/06 LISINOPRIL-HYDROC HLOROTHIAZIDE 02947569765 Rachna Myers RN LATANOPROST 0.005 % SOLN 03/06 LATANOPROST 15156874371 Rachna Myers RN COLESTID 1 GM TABS COLESTIPOL HCL 29288222129 Rachna Myers RN DOXYCYCLINE HYCLATE 100 MG CAPS 12/26 DOXYCYCLINE HYCLATE 31474255030 Rachna Myers RN FLAGYL 500 MG ORAL TABLET 0 METRONIDAZOLE 73562771802 Rachna Myers RN PRIMIDONE 250 MG TABS 11/16 PRIMIDONE 23712929567 Rachna Myers RN BUPROPION HCL 75 MG TABS 03/20 BUPROPION HCL 18983229126 Rachna Myers RN KLOR-CON 20 MEQ PACK 03/06 POTASSIUM CHLORIDE 36596397939 Rachna Myers RN ZOLPIDEM TARTRATE 10 MG TABS 03/06 ZOLPIDEM TARTRATE 70135347721 Rachna Myers RN MECLIZINE HCL 25 MG TABS 03/06 MECLIZINE HCL 05173390640 Rachna Myers RN LEFLUNOMIDE 20 MG TABS 03/06 LEFLUNOMIDE 62961931504 Rachna Myers RN IMURAN 50 MG TABS 03/06 AZATHIOPRINE 12661499765 Rachna Myers RN LEVAQUIN 500 MG ORAL TABLET Take 1 tablet by mouth daily 12/19 LEVOFLOXACIN 68294947772 [facility] FLAGYL 500 MG ORAL TABLET Take one (1) tablet by mouth three times a day METRONIDAZOLE 43435519246 [facility] DOXYCYCLINE HYCLATE 100 MG CAPS Take one (1) tablet by mouth twice a day 12/26 DOXYCYCLINE HYCLATE 47011404638 [facility] Medications Administered No information available. 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
--- OUTSIDE RECORDS SUMMARY | 2025-07-23 10:18 | XMS_ITS | Referral Summary ---
Author Organization [employer] ([place], [place], [place], [place], [place]) Address [address] [place] [address] Care Team Providers Care Night Order Selector Name Role Phone Miller Hazel MD Primary Care Provider [phone] Allergies Active Allergy Reactions Criticality Noted Date [...] Date Arnaud rded Speak language other than [place] at home Not on file 10/01/2023 Want [...] 06/30/2023 3:38 PM EDT Plan of Treatment Upcoming Encounters Date Type Department Care Team (Latest Contact Info) Description 09/04/2025 11:04 AM EST Hospital Encounter [facility] Operating [address] [place] [id number] Kalpana Felton MD [address] [place], [place] [id number] 09/04/2025 11:04 AM EST - 09/04/2025 3:02 PM EST Surgery [facility] Operating Room [address] [place] [id number] Kalpana Felton MD [address] [place], [place] [id number] (T9-10 LAMINECTOMY & T7-10 THORACIC FUSION EXTENSION & REMOVAL OF T10 SCREWS USING GE) Scheduled Procedures Name Priority Associated Diagnoses Date/Ti me LAMINECTOMY, SPINE, THORACIC , WITH FUSION Lumbar radiculopathy 09/04/2025 11:04 AM EST Goals Goal Patient Goal Type Associated Problems Recent Progress Patient-Stated? Author Autogenerat ed Goal Care Plan Autogenerated Problem No Jessica Childress Additional Health Concerns Active Problems Noted Date Diagnosed Date Autogenerated Problem 07/19/2025 Insurance [employer] MEDICARE [place] [address] Advance Directives For more information, please contact: [phone] * Full Code (Latest Code Status on File) Date Activated Date Inactivated Comments 06/30/2023 12:33 PM 07/06/2023 2:55 PM Care Teams Night Order Selector Relationship Specialty Start Date End Date Miller Hazel MD [address] [place] [address] [place] [address] PCP - General Adolescent Medicine 06/30/23
--- OUTSIDE RECORDS SUMMARY | 2025-07-23 10:18 | XMS_ITS | Patient Health Record ---
Author Organization [facility] Harris MD Address [address] [place] [address] Care Team Providers Care Administrative Office Clerk Name Role Phone Clayton Harris Primary Care Provider [phone] Reason For Referral No Information Medications Medication SIG (Take, Route, Frequency, Duration) Notes Start Date End Date Status Ativan 1 MG 1 tablet Orally Once a day 02/02/2013 Active Problems Problem Type SNOMED Code ICD Code Onset Dates Problem Status W/U Status Risk Notes Problem Macroglossia (36976595) Macroglossia (750.15) Active confirmed Problem Hypertension (16533526) HTN (hypertension) (401.9) Active confirmed Problem Coronary artery disease (68443641) CAD (coronary artery disease) (414.00) Active confirmed Problem Hypersomnia with sleep apnea (08646575) Sleep apnea with hypersomnolence (780.53) Active confirmed Plan Of Treatment No Information Insurance Providers Payer Name Payer Address Payer Phone Subscriber Number Group Number Insured Name Patient Relationship to Insured Coverage Start Date Coverage End Date MEDICARE [place] [address] [place] [address] [place] [address] [id number] Yook Jerez Self - patient is the insured [employer] [address] [place] [address] [id number] Yoko Jerez Self - patient is the insured Medical (General) History Surgical History Surgery Date(Month/Year) Joint/Bone UPPER AND BOTTOM LACER HAND
--- OUTSIDE RECORDS SUMMARY | 2025-07-23 10:19 | XMS_ITS | Continuity of Care Document ---
Author Organization [facility] Cl[facility] c, RHEUMATOLOGY SB Address [address] [place] [address] Care Team Providers Care Engineering Faculty Name Role Phone RADHA MIDDLETON Primary Care Provider ADOLFO HALL Supervisor Typesetting SUDHIR COTO Health Support Specialist Unavailabl e Assessment Encounter Date Assessment Date Assessment LastModified by Organization Details LastModified Time 06/26/2025 06/26/2025 - 79-year-old female with a history of connective tissue disease overlap syndrome and systemic lupus erythematosus presenting with chronic pain management and evaluation of ongoing symptoms. - Connective tissue disease overlap syndrome: The patient continues to experience significant joint pain and mobility issues, requiring ongoing management with Benlista and prednisone. - Systemic lupus erythematosus: The condition is managed with Benlista and prednisone, with recent labs indicating stable white blood cell count and sed rate. - Osteoporosis: A bone density test is planned to assess the current status, as the patient is overdue for this screening. - Rotator cuff tear: The patient reports significant shoulder pain, with imaging suggesting tears, and surgical intervention may be considered. [email or web address] Not available 07/19/2025 18:35:37 Plan of Treatment Reminders Order Date Submit Date Provider Last Modified By Organization Details Last Modified Time Details Appointments RECHECK 2024 09:30A M FEDERICO NATION NP Not available Not available Not available BONE DENSITY 2024 11:00A M Bone_densi ty Not available Not available Not available [facility] 2024 08:00A M PADMINI FELTON MD Not available Not available Not available STAPLE REMOVAL 2024 11:30A M Neurosurge ry_nurse Not available Not available Not available NEUROLOG Y RECHECK 2025 10:30A M NEENA DEVI DO Not available Not available Not available RHEUM RECHECK 2025 11:15A M ADOLFO HALL MD Not available Not available Not available POST-OP o 2025 11:30A M PADMINI FELTON MD Not available Not available Not available Lab CMP, serum or plasma [address] (Lab), [address] [facility] [address], [place], [address], 07/03/2025 08:04:47 ESR (erythro cyte sediment ation rate), blood [address] (Lab), [address] [facility] [address], [place], [address], 07/03/2025 08:04:47 CK (creatin e kinase), total, serum [address] (Lab), [address] [facility] [address], [place], [address], 07/03/2025 08:04:47 CBC w/ auto diff [address] (Lab), [address] [address], [place], [address], 07/03/2025 08:04:47 urinalys is, complete [address] (Lab), [address] [facility] [facility], [place], [address], 07/03/2025 08:04:47 dsDNA Ab, serum [address] (Lab), [address], [place], [address], 07/03/2025 08:04:47 C4 (complem ent), serum or plasma [address] (Lab), [address] [place] [address] [address], [place], [address], 07/03/2025 08:04:47 C3 (complem ent), serum or plasma [address] (Lab), [address] [place] [address] [address], [place], [address], 07/03/2025 08:04:48 uric acid, serum or plasma [address] (Lab), [address] [place] [address] [address], [place], [address], 07/03/2025 08:04:48 Referral None recorded . Procedures None recorded . Surgeries None recorded . Imaging DEXA - Need to get forearm and hip measurem ent 2024 [email or web address] [facility] Bone Density [facility], [address] [facility], [place], [address], 07/10/2025 08:04:17 Medication Orders allopuri nol 100 mg tablet 2024 [facility], [address] [place] [address] [address] [place], [id number], 06/26/2025 12:09:57 Mitigare 0.6 mg capsule 2024 [facility], [address] [place] [address] [address] [place], [id number], 06/26/2025 12:09:58 Benlysta 200 mg/mL subcutan eous auto-inj audrey 2024 [facility], [address] [facility], [place], [address], 06/26/2025 11:28:57 predniso ne 5 mg tablet 2024 025 [facility], [address] [place], [id number], 06/26/2025 12:09:58 Patient TargetsNo targets recorded. Patient Instructions Encounter Date Encounter Id Patient Instructions Last Modified By Organization Details Last Modified Time 06/26/2025 [id number] medical record request* - Please send complements, dsDNA and uric acid done 06/22/2025 Not available 07/03/2025 08:04:35 - Continue takin g benlysta and prednisone as prescribed. - Schedule and attend the bone density test. [email or web address] Not available 07/19/2025 18:59:14 Reason for Referral None Reported. Results Created Date Observation Date Name Description Value Unit Range Abnormal Flag Note LastModifiedBy Organization Detail LastModifiedTime 06/27/2006/27/2025 XR, cervi lyubov spine , 4 or [address] [address] Patien t Name: AREN JEREZ Patien t : 948 Patien t 1 Orderi ng Provid er: PADMINI LEONSUSAN Sabina EXAM DATE: 2024 EXAM: XR CERVIC AL SPINE AP/LAT /FLEX/ EXT CLINIC AL INFORM ATION: IMAGES PROVID ED: Latera l views of the cervic al spine in flexio n and extens ion. COMPAR MAXIMUS: None. FINDIN GS: FINDIN GS: Verteb ral body height s are normal . Diffus e degene rative endpla te spurri ng is presen t. Very slight anteri or listhe sis of C5 relati ve to C6. No abnorm ality of alignm ent is seen. No instab ility is seen on flexio n or extens ion. No radiog raphic eviden ce of injury is noted. IMPRES ROXANA: Mild diffus e DDD with subtle malali gnment C5-6. No instab ility. Interp reted By: Teofilo Rao MD Electr onical ly Signed By: Teofilo Rao MD on 025 10:01 AM pam [facility] Radiology [facility] [address] [place], [address], 07/17/2025 17:12:53 06/27/2006/27/2025 CT, thora cic spine , w/o contr ast [facility] [address] [place] [address] Patien t Name: AREN JEREZ Patien t : 948 Patien t 1 Orderi ng Provid er: PADMINI TIMONE Y EXAM DATE: 2024 EXAM: CT THORAC IC W/O CONTRA ST CLINIC AL INFORM ATION: Mid back pain. Histor y of a T9 compre ssion fractu re. Remote surgic al fixati on of the lower thorac ic and lumbar spine TECHNI QUE: No POC testin g for eGFR was perfor med due to absenc e of risk factor s. CT thorac ic spine withou t contra st. Mack l and sagitt al recons tructi ons were obtain ed. COMPAR MAXIMUS: MRI thorac ic spine dated FINDIN GS : Modera te levosc oliosi s of the thorac olumba r spine has an apex near T12. There is a chroni c compre ssion deform ity of the inferi or endpla te of T9 and superi or endpla te of T10. There is partia l osseou s fusion across the disc space. The right T10 pedicl e screw extend s into the T9 verteb ra. Otherw ise, the digita l body height is within normal limits . Surgic al hardwa re is unrema rkable . A small night patrol inspector ior disc osteop hyte comple x at T9-10 result s in a modera te centra l canal stenos is, unchan ged from the prior study. Althou gh limite d due to the attenu ation artifa ct from the surgic al hardwa re, there is no eviden ce of an additi onal signif icant centra l canal stenos is. The parave rtebra l soft tissue s are within normal limits . IMPRES ROXANA: 1. Compre ssion deform ities of the T9 and T10 verteb ral bodies are unchan ged from the prior study. 2. Helper Electrical ior disc osteop hyte comple x at T9-10 result s in modera te centra l canal stenos is, unchan ged. 3. No new osseou s abnorm alitie s. Postop erativ e fusion from T10 extend ing into the lumbar spine. Interp reted By: Pedro motley MD Electr onical ly Signed By: Pedro motley MD on 3:52 PM [facility] Radiology [facility] [address] [place] [address], [phone], 07/17/2025 17:12:54 06/27/2006/27/2025 CT, lumba r spine , w/o contr ast [address] [address] Patien t Name: AREN JEREZ Patien t : 948 Patien t 1 Orderi ng Provid er: PADMINI TIMONE Y EXAM DATE: 2024 EXAM: CT LUMBAR WITHOU T CONTRA ST HISTOR Y: Compre ssion fractu re of T9. Prior thorac olumba r fusion . COMPAR MAXIMUS: MRI lumbar spine TECHNI QUE: 1 mm direct axial slices were obtain ed throug h the lumbar spine. Comput er-gen erated axial, sagitt al, and mack l recons tructi ons are also provid ed for interp retati on. FINDIN GS: Extens kyrie postop erativ e change s are identi fied from T10 throug h S2. Mild edith listhe sis of L3 on L4 is unchan ged. There is no acute osseou s abnorm alitie s. No fractu re. The pedicl e screws and night patrol inspector ior stabil izatio n bars are unchan ged in appear ance. There is chroni c lucenc y associ ated with the S2 screws extend ing into the iliac bones. There is extens kyrie osseou s erosio ns of both sacroi liac joints . Irregu lar sclero sis have develo ped within the sacroi liac joints on both sides of the sacrum and iliac bone. The surgic al hardwa re result s in signif icant attenu ation artifa ct. No convin cing eviden ce of a recurr ent centra l canal stenos is. The parave rtebra l soft tissue s within normal limits . There is atroph y of the iliops oas muscle s and lumbar muscul ature. IMPRES ROXANA: 1. Lucenc y surrou nding the screws associ ated with the S2 sacral segmen t/sacr oiliac joint. There is also irregu lar sclero sis of the sacrum and both iliac bones with develo pment of new osseou s erosio ns at both sacroi liac joints . While this can be seen in the settin g of loosen ing, hardwa re infect ion/os teomye litis should be consid ered. Please correl ate with clinic al histor y. Interp reted By: Pedro motley MD Electr onical ly Signed By: Pedro motley MD on 025 4:00 PM [facility] Radiology [address], [address], 07/17/2025 17:12:54 06/27/20 25 06/27/2025 MRI, cervi lyubov spine , w/o contr ast [address] [address] Patien t Name: AREN JEREZ Patien t : 948 Patien t 1 Orderi ng Provid er: PADMIIN TIMONE Y EXAM DATE: 2024 EXAM: MR CERVIC AL W/O CONTRA ST HISTOR Y: Neck pain for severa l months COMPAR MAXIMUS: Cervic al spine radiog raphs 025 FINDIN GS: Verteb ral body height is normal . There is minima l grade 1 edith listhe sis of C5 on C6 (2 mm). No abnorm al bone marrow signal . The signal charac terist ics of the night patrol inspector ior fossa and cervic al spinal cord are within normal limits . C2-3: The disc spaces mildly narrow ed. Uncove rtebra l hypert rophy and facet arthro bob result s in mild bilate ral neural forami nal stenos is. C3-4: A small night patrol inspector ior disc protru roxana measur es 3 mm. This result s in a mild centra l canal stenos is. Uncove rtebra l hypert rophy and facet arthro bob result s in modera te bilate ral neural forami nal stenos is. C4-5: The disc space is narrow ed. No centra l canal or neural forami nal stenos is. C5-6: A small night patrol inspector ior disc osteop hyte comple x result s in a mild centra l canal stenos is (0.9 cm AP canal diamet er). No neural forami nal stenos is. C6-7: A centra l disc osteop hyte comple x measur es up to 3 mm. This result s in a mild centra l canal stenos is no signif icant neural forami nal stenos is. C7-T1: No signif icant centra l canal stenos is. No neural forami nal stenos is. IMPRES ROXANA: 1. Mild centra l canal stenos is at C5-6 and C6-7. Interp reted By: Pedro motley MD Electr onical ly Signed By: Pedro motley MD on 025 4:03 PM [facility] Radiology [address], [address], 07/17/2025 17:12:54 Result Notes Documentation Provider Name and Address Organization Details Recorded Time Ct, Thoracic Spine, W/o Contrast : [address] [address] Patient Name: NIKO JEREZ Patient : 1945 Patient Ordering Provider: PADMINI FELTON EXAM DATE: 06/27/2025 EXAM: CT THORACIC W/O CONTRAST CLINICAL INFORMATION: Mid back pain. History of a T9 compression fracture. Remote surgical fixation of the lower thoracic and lumbar spine TECHNIQUE: No POC testing for eGFR was performed due to absence of risk factors. CT thoracic spine without contrast. Coronal and sagittal reconstructions were obtained. COMPARISON: MRI thoracic spine dated 05/17/2025 FINDINGS : Moderate levoscoliosis of the thoracolumbar spine has an apex near T12. There is a chronic compression deformity of the inferior endplate of T9 and superior endplate of T10. There is partial osseous fusion across the disc space. The right T10 pedicle screw extends into the T9 vertebra. Otherwise, the digital body height is within normal limits. Surgical hardware is unremarkable. A small posterior disc osteophyte complex at T9-10 results in a moderate central canal stenosis, unchanged from the prior study. Although limited due to the attenuation artifact from the surgical hardware, there is no evidence of an additional significant central canal stenosis. The paravertebral soft tissues are within normal limits. IMPRESSION: 1. Compression deformities of the T9 and T10 vertebral bodies are unchanged from the prior study. 2. Posterior disc osteophyte complex at T9-10 results in moderate central canal stenosis, unchanged. 3. No new osseous abnormalities. Postoperative fusion from T10 extending into the lumbar spine. Interpreted By: Pedro Paula MD INI FELTON MD [address] [place] [address], [phone] 07/17/2025 17:12:54 Ct, Lumbar Spine, W/o Contrast : [place] [address] Patient Name: NIKO JEREZ Patient : 1945 Patient Ordering Provider: PADMINI FELTON EXAM DATE: 06/27/2025 EXAM: CT LUMBAR WITHOUT CONTRAST HISTORY: Compression fracture of T9. Prior thoracolumbar fusion. COMPARISON: MRI lumbar spine 05/17/2025 TECHNIQUE: 1 mm direct axial slices were obtained through the lumbar spine. Computer-generated axial, sagittal, and coronal reconstructions are also provided for interpretation. FINDINGS: Extensive postoperative changes are identified from T10 through S2. Mild anterolisthesis of L3 on L4 is unchanged. There is no acute osseous abnormalities. No fracture. The pedicle screws and posterior stabilization bars are unchanged in appearance. There is chronic lucency associated with the S2 screws extending into the iliac bones. There is extensive osseous erosions of both sacroiliac joints. Irregular sclerosis have developed within the sacroiliac joints on both sides of the sacrum and iliac bone. The surgical hardware results in significant attenuation artifact. No convincing evidence of a recurrent central canal stenosis. The paravertebral soft tissues within normal limits. There is atrophy of the iliopsoas muscles and lumbar musculature. IMPRESSION: 1. Lucency surrounding the screws associated with the S2 sacral segment/sacroiliac joint. There is also irregular sclerosis of the sacrum and both iliac bones with development of new osseous erosions at both sacroiliac joints. While this can be seen in the setting of loosening, hardware infection/osteomyelitis should be considered. Please correlate with clinical history. Interpreted By: Pedro Paula MD INI FELTON MD [address] [place], [place] [address] 07/17/2025 17:12:54 Mri, Cervical Spine, W/o Contrast : [place] [address] Patient Name: NIKO JEREZ Patient : 1945 Patient Ordering Provider: PADMINI FELTON EXAM DATE: 06/27/2025 EXAM: MR CERVICAL W/O CONTRAST HISTORY: Neck pain for several months COMPARISON: Cervical spine radiographs 06/27/2025 FINDINGS: Vertebral body height is normal. There is minimal grade 1 anterolisthesis of C5 on C6 (2 mm). No abnormal bone marrow signal. The signal characteristics of the posterior fossa and cervical spinal cord are within normal limits. C2-3: The disc spaces mildly narrowed. Uncovertebral hypertrophy and facet arthropathy results in mild bilateral neural foraminal stenosis. C3-4: A small posterior disc protrusion measures 3 mm. This results in a mild central canal stenosis. Uncovertebral hypertrophy and facet arthropathy results in moderate bilateral neural foraminal stenosis. C4-5: The disc space is narrowed. No central canal or neural foraminal stenosis. C5-6: A small posterior disc osteophyte complex results in a mild central canal stenosis (0.9 cm AP canal diameter). No neural foraminal stenosis. C6-7: A central disc osteophyte complex measures up to 3 mm. This results in a mild central canal stenosis no significant neural foraminal stenosis. C7-T1: No significant central canal stenosis. No neural foraminal stenosis. IMPRESSION: 1. Mild central canal stenosis at C5-6 and C6-7. Interpreted By: Pedro Paula MD INI FELTON MD [address] [place] [address], [phone] 07/17/2025 17:12:54 Xr, Cervical Spine, 4 Or 5 View : [place] [address] Patient Name: NIKO JEREZ Patient : 1945 Patient Ordering Provider: PADMINI FELTON EXAM DATE: 06/27/2025 EXAM: XR CERVICAL SPINE AP/LAT/FLEX/EXT CLINICAL INFORMATION: IMAGES PROVIDED: Lateral views of the cervical spine in flexion and extension. COMPARISON: None. FINDINGS: FINDINGS: Vertebral body heights are normal. Diffuse degenerative endplate spurring is present. Very slight anterior listhesis of C5 relative to C6. No abnormality of alignment is seen. No instability is seen on flexion or extension. No radiographic evidence of injury is noted. IMPRESSION: Mild diffuse DDD with subtle malalignment C5-6. No instability. Interpreted By: Teofilo Rao MD INI FELTON MD [address] [place] [address], [phone] 07/17/2025 17:12:53 Problems Name Problem SNOMED Code Status Onset Date Resolution Date Notes Provider Name and Address Organization Details Recorded Time Arthriti s 5358289 Active Jovita (Vani) [facility] 9 12:07:45 Chronic depressi on 833295460 Active Jovita (Vani) [facility] 9 12:07:45 Allergic disposit ion 670799594 Active Jovita (Vani) [facility] 9 12:07:45 Blind left eye 259882070 Active Jovita (Vani) Croley null, [facility] 9 12:07:45 History of respirat ory disease 297147541 Active Jovita (Vani) [place] null, [facility] 9 12:07:45 Degenera tive disorder of macula 436422825 Active Jovita (Vani) [place] null, [facility] 9 12:07:46 Backache 349268141 Active Jovita (Vani) [place] null, [facility] 9 12:07:46 Disorder of thyroid gland 40259881 Active Jovita (Vani) [place] null, [facility] 9 12:07:46 Kidney stone 04402301 [facility] 9 12:07:46 Bilatera l cataract s 65414638 Active [facility]ani[facility] 9 12:07:46 Pancreat itis 80500730 Active [facility]ani[facility] 9 12:07:46 Chronic diarrhea 407722277 Active [facility]ani[facility] 9 12:07:46 Anemia 256518834 Active Jovita (Vani) Маринаley null, [facility] 9 12:07:46 Coronary arterios clerosis 99139706 Active Jovita (Vani) [place] null, [facility] 9 12:07:46 Impairme nt of balance 746041259 Active Jovita (Vani) [place] null, [facility] 9 12:07:46 Urinary tract infectio us disease 86974978 Active Jovita (Vani) [place] null, [facility] 9 12:07:46 Glaucoma 79380813 Active Jovita (Vani) [place] null, [facility] 9 12:07:46 Rheumato id arthriti s 74771841 Active Jovita (Vani) Маринаley null, [facility] 9 12:07:46 Neck pain 36312765 Active Jovita (Vani) [place] null, [facility] 9 12:07:46 Spinal stenosis 93976077 Active Jovita (Vani) Маринаley null, [facility] 9 12:07:46 Migraine 53921145 Active [facility]Vani[facility] 9 12:07:46 Wears glasses 749130501 Active Jovita (Vani) [facility] 9 12:07:46 Sinusiti s 90758027 Active Jovita (Vani) [facility] 9 12:07:46 Peripher al nerve disease 988747161 Active Jovita (Vani) Маринаley [facility] 9 12:07:46 Gastroes ophageal reflux disease 684271524 Active Jovita (Vani) Rdoy [facility] 9 12:07:46 Deep venous thrombos is 751864405 Active [facility]ita (Vani) [facility] 9 12:07:46 Hyperlip idemia 74594878 Active [facility]Vani[facility] 9 12:07:46 Acute poliomye litis 828301790 Active 1954 [facility]ani[facility] 9 12:07:46 Systemic lupus erythema tosus 24982055 Active 1989 Jovita (Vani) [facility] 9 12:07:46 Prolapse d lumbar interver tebral disc 200862569 Active 2014 From Automate d Load;Pro vider: Eloy Amezquita; Status: Active Jovita (Vani) [facility] 9 12:07:46 Low back pain 471354362 Active 2014 Provider : Eloy Amezquita; Status: Active Jovita tsang (Camille[facility] 9 12:07:46 Spinal stenosis of lumbar region 91044917 Active 2014 From Automate d Load;Pro vider: lEoy Amezquita; Status: Active Jovita tsang (Camille)[facility] 9 12:07:46 Coronary arterios clerosis in [place] ira artery 94182763997 07 Active 2014 From Automate d Load;Pro vider: Zain , Josh;St atus: Active Jovita tsang (Camille)[facility] 9 12:07:46 Abdomina l pain 45794026 Active 2014 From Automate d Load;Pro vider: Zain , Josh;St atus: Active Jovita Fine (Camille) [facility] 9 12:07:46 Pain 40591928 Active 2014 From Automate d Load;Pro vider: Zain , Josh;St atus: Active Jovita tsang (Camille)[facility] 9 12:07:45 Blood in urine 92889175 Active 2014 From Automate d Load;Pro vider: Zain , Josh;St atus: Active Jovita tsang (Camille)[facility] 9 12:07:46 Pain in right knee Active 2014 From Automate d Load;Pro vider: Zain , Josh;St atus: Active Jovita tsang (Camille)[facility] 9 12:07:46 Hyperten sive disorder 49228132 Active 2014 From Automate d Load;Pro vider: Zain , Josh;St atus: Active Not Available [facility] 6 23:35:13 Idiopath ic osteoart hritis 378129354 Active 2014 From Automate d Load;Pro vider: Herminia Orr;Status : Active Jovita (Vani) [facility] 9 12:07:45 Pain in left knee Active 2014 From Automate d Load;Pro vider: Malu Luna;S tatus: Active Jovita (Vani) [facility] 9 12:07:46 Migraine without aura, not refracto ry 217543142 Completed 201506/07/2019 From Automate d Load;Pro vider: Geronimo Dahl; atus: Active [facility] 9 12:53:55 Lumbosac ral radiculo bob 6506877 Active 2015 From Automate d Load;Pro vider: Eloy Amezquita; Status: Active Jovita (Vani) [facility] 9 12:07:46 Chronic headache disorder 352476221 Active 2018 [facility] 9 12:53:51 Neuropat hy 181862896 Active 2019 Jovita (Vani) Маринаumair [facility] 0 12:46:05 Memory impairme nt 381706782 Active 2019 Jovita (Vani) [facility] 0 12:46:19 Vertigo 468431945 Active 2020 J[facility]ita (Vani) [facility] 1 16:06:43 Parkinso n's disease 73626501 Active 2024 NEENA DEVI, DO [address] [place], [address] , [facility] 5 11:21:53 Abnormal gait due to muscle weakness 422340119 Active 2024 NEENA DEVI, DO [address] [place], [address] , [facility] 11:21:53 Idiopath ic peripher al neuropat 06193775 Active 2024 NEENA DEVI DO [address] [place] [address], [phone] , [facility] 11:02:22 Notes:Some problems listed i n Document: #[id number] could not be added to this patient's chart. Please review this document and add these problems to the patient's chart manually as needed. Problem Notes None recorded. Procedures Surgical History Date Name Laterality Status Provider Name and Address Organization Details Recorded Time 04/09/20 Caudal CYNDI Addie completed JULIANNA REAL MD [address] [place] [address], [phone], [facility] 04/09/2025 17:22:39 12/06/19 25 total knee replacement completed Bakari Moe [facility] 04/24/2025 10:45:14 11/14/19 25 dental surgical procedure completed Catrina Us [facility] 12/05/2024 11:13:30 09/18/20 24 Caudal CYNDI Addie completed JULIANNA REAL MD [address] [place] [address], [phone], [facility] 09/18/2024 14:11:05 07/27/20 24 Joint Injection, Knee - Addie completed JULIANNA REAL MD [address] [place] [address], [phone], [facility] 07/27/2024 13:58:38 07/25/20 24 Post Void Residual; Ultrasound completed [place], KELSIE [address] [place] [address], [phone], [facility] 07/25/2024 11:36:57 05/16/20 24 Caudal CYNDI Addie completed JULIANNA REAL MD [address] [place] [address], [phone], [facility] 05/16/2024 12:49:14 04/20/20 24 Joint Injection, Knee - Addie completed JULIANNA REAL MD [address] [place] [address], [phone], [facility] 04/20/2024 11:47:04 02/08/20 24 total knee replacement completed Shayy Pathak [facility] 05/16/2024 10:52:57 01/31/20 24 Joint Injection, Knee - Addie completed JULIANNA REAL MD [address] [place], [address], [facility] 01/31/2024 15:34:35 01/20/20 24 Post Void Residual; Ultrasound completed RADHA JOHNSTON MD [address] [place], [address], [facility] 01/20/2024 11:50:18 01/11/20 24 Caudal CYNDI Addie completed JULIANNA REAL MD [address] [place], [address], [facility] 01/11/2024 13:44:46 11/23/19 24 Post Void Residual; Ultrasound completed Chaparrita Gómez [facility] 11/23/2023 11:05:50 10/21/19 24 Joint Injection, Knee - [place] [address] [place] [address], [phone], [facility] 10/21/2023 13:59:42 10/07/19 24 Caudal CYNDI Addie completed JULIANNA REAL MD [address], [address], [facility] 10/07/2023 12:03:23 08/31/20 23 Trigger Point Injections - Addie completed ZEHRA LARIOS PA-C [address] [place], [address], [facility] 08/31/2023 15:18:07 07/12/20 23 Lumbar Transforaminal Epidural Injection - Addie completed JULIANNA REAL MD [address] [place], [address], [facility] 07/12/2023 12:44:44 01/28/20 23 Monovisc Injection completed HEAVEN GRAHAM PA-C [address] [place], [address], [facility] 02/09/2023 13:19:06 08/06/20 20 LIGATION OR BIOPSY, TEMPORAL ARTERY (SURG) completed Iraida Genaokins [facility] 08/07/2020 14:34:42 Back Surgery completed Kati Johnsonholz [facility] 05/10/2018 14:27:13 Shoulder joint surgery completed Katienio JohnsonRakan [facility] 05/10/2018 14:27:30 Tubal Ligation completed Natalia Paul [facility] 11/17/2023 11:49:05 placement of stent in cardiac conduit completed Natalia Paul [facility] 11/17/2023 11:49:20 Shoulder joint surgery completed Shayy Pathak [facility] 05/16/2024 10:52:23 Imaging Results None recorded. Procedure Notes None recorded. Medical Equipment None Reported. Allergies Allergen ID Allergen Name Allergen Category Reaction Reaction Severity Criticality Documentation Date Start Date Code Code System Note Provider Name and Address Organization Details Recorded Time 553356 Compazine medicatio n Not available Not available Not available 08/13/2016201254 6 RxNorm Comme nt: Creat ed By: Deny tamayo Date: 07/19 10:31 :05 AM; [facility] 13:19:43 048796 acetamino phen / oxycodone medicatio n hallucina tions Not available Not available 08/13/20162012 63886 3 RxNorm [facility] 13:19:26 605642 aspirin medicatio n Not available Not available Not available 08/13/20162015 1191 RxNorm Comme nt: Creat ed By: Owen coffman Date: 2015 2:57: 49 PM; [facility] 10:56:39 833858 prochlorp erazine medicatio n seizure Not available Not available 06/07/2019 8704 RxNorm Paddy zine [facility] 3 13:19:09 027773 aspirin medicatio n Not available Not available Not available 06/07/2019 1191 RxNorm 'Rhina l funct ion tests abnor mal'. Natalia Miller [facility] 3 13:19:59 608978 baclofen medicatio n other Not available Not available 05/03/2025 1292 RxNorm High B/P, shaky Catrina York [facility] 5 11:41:26 Medications Name Sig Start Date [...] as needed by oral route. 2024 active [facility]: [phone] 0-61 Not Available Not [...] and Address Organization Details Last Updated DateTime 162.56 cm 36 kg/m2 57993.4 g 16 /min 74 /min 98 % 98 % 126/60 mm[Hg] [facility] 11:06:32 Date Recorded Body height Provider Name an d Address Organization Details Last Updated DateTime 07/18/2025 162.56 [facility] 07/18/[facility]25 13:22:28 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 Question Answer Notes LastModified by Organizat ion Details LastModified Time Tobacco Smoking Status Former Smoker Kati Johnsonholz [facility] 05/10/2018 14:27:07 How Much Tobacco Do You Chew? None [email or web address] Information not available 06/07/2019 Which Illicit Or Recreational Drugs Have You Used? No [email or web address] Information not available 06/06/2020 Marital Status Junior Informatio n not available 06/07/2019 What Was The Date Of Your Most Recent Tobacco Screening? 06/26/2025 [email or web address] Information not available 06/26/2025 What Is Your Relationship Status? [email or web address] Information not available 08/31/2024 How Much Tobacco Do You Smoke? No [email or web address] Information not available 06/07/2019 Sex: Unknown Functional Status Question Answer Note LastModified by Organizat ion Details LastModified Time What is your level of alcohol consumption? None [email or web address] Information not available 06/07/2019 Do you or have you ever used smokeless tobacco? Never used smokeless tobacco [email or web address] Information not available 06/07/2019 Are you currently employed? No [email or web address] Information not available 08/31/2024 What is your occupation? retired [email or web address] Information not available 06/07/2019 Do you or have you ever used e-cigarettes or vape? Never used electronic cigarettes [email or web address] Information not available 06/07/2019 Mental Status None [...] Osteoporosis/Osteopenia Y Stomach trouble Y Heart Attack ([place]) N Diabetes N Anxiety Disorder Y Bleeding [...] Immunizations Vaccine Type Date Status Note Provider aNrayan herbert and Address Organization Details Recorded Time zoster recombinant 9 completed Not Available [facility] 06/26/2025 10:45:04 Pneumococcal conjugate PCV 13 0 completed Not Available [facility] 06/26/2025 10:45:04 zoster recombinant 0 completed Not Available [facility] 06/26/2025 10:45:04 COVID-19, mRNA, LNP-S, PF, 100 mcg/0.5mL dose or 50 mcg/0.25mL dose 1 completed Not Available [facility] 06/26/2025 10:45:04 Influenza, high-dose, trivalent, PF 1 completed Not Available [facility] 06/26/2025 10:45:04 COVID-19, mRNA, LNP-S, PF, 100 mcg/0.5mL dose or 50 mcg/0.25mL dose 2 completed Not Available [facility] 06/26/2025 10:45:04 Influenza, high-dose, trivalent, PF 2 completed Not Available [facility] 06/26/2025 10:45:04 Influenza, high-dose, trivalent, PF 3 completed Not Available [facility] 06/26/2025 10:45:04 COVID-19, mRNA, LNP-S, PF, 50 mcg/0.5 mL 3 completed Not Available [facility] 06/26/2025 10:45:04 Tdap 3 completed Not Available [facility] 06/26/2025 10:45:04 COVID-19, mRNA, LNP-S, PF, 50 mcg/0.5 mL 4 completed Not Available [facility] 06/26/2025 10:45:04 Influenza, high-dose, trivalent, PF 4 completed Not Available [facility] 06/26/2025 10:45:04 Influenza, split virus, quadrivalent, preservative 8 completed Wendie tsang [facility] 06/07/2019 11:53:21 pneumococcal, unspecified formulation 01/01/201 7 completed Wendie Rozina [facility] 06/07/2019 11:53:21 Influenza, split virus, quadrivalent, preservative 0 completed Jovita (Vani) Rody [facility] 06/06/2020 12:05:59 SARS-COV-2 (COVID-19) vaccine, UNSPECIFIED 1 completed Mare Bledsoe [facility] 03/18/2021 09:39:59 SARS-COV-2 (COVID-19) vaccine, UNSPECIFIED 1 completed Mare Bledsoe [facility] 03/18/2021 09:40:02 Influenza, split virus, quadrivalent, preservative 0 completed Marebernardo Bledsoe [facility] 03/18/2021 09:40:14 Past Encounters Encounter ID Performer Location Encounter Start Date Encounter Closed Date Diagnosis/Indication Diagnosis SNOMED-CT Code Diagnosis ICD10 Code Diagnosis IMO Codes Diagnosis Note [id number] NAHUN DUDLEY PA-C [facility] [address] [place] [address] 06/06/2025 09:07:58 06/14/2025 06:29:20 Thoracic spondylosis 968868498 M47.814 12546 Lumbar radiculopathy 128 058550 M54.16 81178 Cervical radiculopathy 45589878 M54.12 167587 [id number] ADOLFO HALL MD [address] [place] [address] 06/26/2025 10:44:39 07/20/2025 04:34:20 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 Grade 2 diastolic dysfunctio n. Moderate TR. RVSP 40-[address] 08/27/2022: Multiple nodules scattered throughout both lungs measuring up to 5 mm. No significan t enlargemen t of the pulmonary arteries to suggest pulmonary arterial hypertensi on. No bronchiect asis. No significan t interstiti al lung disease. Continue Benlysta 200 mg subcutaneo us every week (10/21/2023) Continue prednisone 5 mg daily Systemic l upus erythematosus 19412197 M32.9 - Maintain current treatment regimen with benlysta and prednisone , monitor lab results for stability. Long-term drug therapy [id number] Z79.899 Retinal toxicity to Plaquenil CBC, CMP, [...] of malignancy , and infusion reactions. Gout 57243499 M10.9 There is concern for overlappin g gout - encouraged continuing mitigare 0.6 mg daily- continue allopurino l 100 mg daily Bilateral osteoarthritis of knees [id number] 70751 M17.0 She got her left knee replaced 02/17[facility] [facility] 12/11/24 Osteoporosis 23958675 M8 1.0 DEXA 05/07/2022 left femoral neck -0.3, right forearm -0.6, FRAX 9.4% / 0.7%Old compressio n fractures have been noted in the thoracic spine. Repeat DEXA every 2 years; due ; overdue for this; ordered today Continue weightbear ing exercise Recommend discussed calcium and vitamin D supplement ation with nephrology .- prolia, forteo, or tymlos would probably be the safest option for her Pulmonary hypertension 27094336 I27.20 Last echo 03/03/2024: LVEF 55%. Grade 2 diastolic dysfunctio n. Moderate TR. RVSP 40-45 mmHg.-Cont inue follow-up with Dr. Underwood (yearly follow ups. Last 01/2025)- following with pulmonolog y Winnie Laura APRN (every 6 months. Last 12/2024) Spinal nigel nosis of lumbar region 59237520 M48.061 2004 lumbar fusion L2-510/201 8 lumbar fusion L1-S1MRI/C T 06/2023 with severe degenerati ve changes chronic thoracic compressio n fracturesN ow imaging is suggesting that one of her screws is loose and she has a worsening bulging disc Continue follow-up with pain management Richie wilburn with Dr. Felton and is going to get MRIs of her entire spine tomorrow Her last surgery on the lumbar spine was 12/24/2020- Getting gabapentin from other providers Health Concerns Section Related Observation LastModified by Organization Detai ls LastModified Time None Recorded Concern Status LastModified by Organization Details LastModified Time None Recorded Payers Encounter Date Sequence Insurance Name Policy Number Policy Pearl Covered Member ID Pearl Member ID Guarantor Name 06/26/2025 1 [employer] (MEDICARE REPLACEMENT/ ADVANTAGE - PPO) Niko Ruff Solitario [id number] Niko Elzbieta Solitario 06/26/2025 2 [place] [employer] CHO[employer] - FFS/TRADITIO NAL Niko Ruff Solitario [id number] Niko Ruff Solitario Notes Date Note Type Note Provider Name and Address Organization Details Recorded Time 06/26/2025 text/html ROS as noted in the HPI Niko Jerez is a 79-year-old woman with past medical history of mixed connective tissue disease (SLE/RA), pulmonary hypertension, Parkinson's disease, dementia, CKD, gout who presents for follow-up. She is taking benlysta 200 mg weekly and prednisone 5 mg daily, colchicine 0.6 mg daily, and allopurinol 100 mg daily. She got her knee replacement. She reports persistent pain in the left buttock and joints, with exacerbations in the shoulder and elbows, particularly during rainy weather. Recent imaging studies, including x-rays and MRIs, have been conducted to assess the chronic compression fracture at T9 and potential issues in the cervical region. The patient continues on benlysta and prednisone for systemic lupus erythematosus, with variable mobility requiring a cane or walker on different days. She experiences stabbing pains in the foot and heel, and her joints remain sore and swollen. A bone density test is planned due to osteoporosis, and she is overdue for this screening. She is also getting injections in her lumbar spine with pain management. Dr. Real. She has been told that if she gets her sleep study and is compliant with treatment of sleep apnea, they feel that that will help her swelling significantly. She is following with Dr. Shaikh in pulmonary and Dr. Underwood in cardiology. She otherwise denies any chest pain, sob, abd pain, nausea, vomiting, fevers, rashes, oral ulcers, dry eyes, dry mouth, raynaud's, headaches, hematuria, VTE's. Documentation on this patient encounter was supported using voice-enabled Al technology. The patient consented to recording for the purpose of documenting the encounter. Provider reviewed content of the generated note prior to signature. ADOLFO HALL MD [address] [place] [address], [phone], [facility] 07/19/2025 19:01:37 07/18/2025 text/html ROS as noted in the HPI Patient is a very pleasant 79-year-old woman here today for new onset left lower extremity pain and weakness. She had a previous T10 to pelvis fusion by Dr. Amezquita. She states over the last several days she has had intense left buttock pain and pain radiating down the back of the leg and the top of the thigh. She is having significant weakness where she feels as if she cannot move the left leg. She is due to see orthopedics on Wednesday. She did undergo new scans and she is here today for the results of these. 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
--- OUTSIDE RECORDS SUMMARY | 2025-07-23 10:19 | XMS_ITS | Clinical Summary ---
Author Organization [employer] ([place], [place], [place], [place], [place]) Address [address] [place] [address] Care Team Providers Care Humanities Coordinator Name Role Phone Miller Hazel MD Primary Care Provider [phone] Allergies Active Allergy Reactions Criticality Noted Date [...] Date Arnaud rded Speak language other than Bangladeshi at home Not on file 10/01/2023 Want [...] Description 09/04/2025 11:04 AM EST Hospital Encounter [facility] [address] [place] [address] Kalpana Felton MD [address] [place], [place] [id number] 09/04/2025 11:04 AM EST - 09/04/2025 3:02 PM EST Surgery [facility] [address] [place] [address] Kalpana Felton MD [address] [place] [address] (T9-10 LAMINECTOMY & T7-10 THORACIC FUSION EXTENSION & REMOVAL OF T10 SCREWS USING GE) Scheduled Procedures Name Priority Associated Diagnoses Date/Ti me LAMINECTOMY, SPINE, THORACIC , WITH FUSION Lumbar radiculopathy 09/04/2025 11:04 AM EST Health Maintenance Due Date Last Done Comments [...] Additional history exists Influenza Vaccine (#1) 2025 3, 08/19/2022, 06/08/2022, Additional history exists Shingles Vaccine (Zoster) Completed 05/09/2020, 05/2019 Goals Goal Patient Goal Type Associated Problems Recent Progress Patient-Stated? Author Autogenerat ed Goal Care Plan Autogenerated Problem No Jessica Childress Additional Health Concerns Active Problems Noted Date Diagnosed Date Autogenerated Problem 07/19/2025 Insurance [employer] MEDICARE PPO MEDICAID OF [place] Advance Directives For more information, please contact: [phone] * Full Code (Latest Code Status on File) Date Activated Date Inactivated Comments 06/30/2023 12:33 PM 07/06/2023 2:55 PM Care Teams Humanities Coordinator Relationship Specialty Start Date End Date Miller Hazel MD [address] [place] [address] [place] [address] PCP - General Adolescent Medicine 06/30/23
--- OUTSIDE RECORDS SUMMARY | 2025-07-23 10:19 | XMS_ITS | Continuity of Care Document ---
Author Organization [facility], NEUROSURGERY [address] [place] [address] Care Team Providers Care Um Specialist Name Role Phone RADHA MIDDLETON Primary Care Provider ADOLFO HALL Optician Apprentice Dispensing SUDHIR COTO Color Technician Unavailabl e Assessment Encounter Date Assessment Date Assessment LastModified by Organization Details LastModified Time 06/06/2025 06/06/2025 MRI lumbar and thoracic spine. 05/17/2025. [facility]. Images reviewed by Dr. Felton and [...] spine , w/o contr ast [facility] [address] [facility] [place] [address] [phone] Patien t Name: AREN self : 948 Patimayra [...] s fusion at T9-T10 . There is blower insulator ior fusion extend ing from T10 throug h the lumbar spine. There is parama gnetic artifa ct from the pedicl e screws and blower insulator ior fusion hardwa re. There is focal kyphos is at T9-T10 and kyphos is of the upper thorac ic spine. There is no acute fractu re. There is mild anteri or margin al osteop hytic spurri ng. No pathol ogic lesion is identi fied in the thorac ic spine. The visual ized spinal cord appear s normal . There is modera te blower insulator ior spurri ng at T9-T10 . There [...] fusion at T9-T10 . 2. There is blower insulator ior fusion extend ing from T10 throug h the lumbar spine. Interp reted By: Charlene ochoa MD Electr onical ly Signed By: Charlene ochoa MD on 05/21/20 10:[address] Radiology [address], [address], 05/23/2025 12:48:07 05/21/2005/17/2025 MRI, lumba r spine , w/o contr ast [address] [address] Patien t Name: AREN JEREZ Patimayra t : 948 Patien t 1 Orderi ng Provid er: ZEHRA MILLAY EXAM DATE: 2024 EXAM: MR LUMBAR W/O CONTRA ST HISTOR Y: 79-yea r-old female with chroni c mid and low back pain radiat ing to the left hip. COMPAR MAXIMUS: Radiog raph dated 04/24/20 25 and MRI dated 018 FINDIN GS: There is blower insulator ior fusion and joselyn ctomie s extend ing from T10 throug h the sacrum . There is parama gnetic artifa ct from the pedicl e screws and blower insulator ior fusion hardwa re. There are prior [...] ing at L5-S1. 2. There is prior blower insulator ior fusion and joselyn ctomie s extend ing from T10 throug h the sacrum . Interp reted By: Charlene ochoa MD Electr onical ly Signed By: Charlene ochoa, MD on 05/21/20 10:27 AM [email or web address] [facility] Radiology [facility] [address] [place] [address], [phone], 05/23/2025 12:47:59 06/27/2006/27/2025 XR, cervi lyubov spine , 4 or [address] [address] Patien t Name: AREN Plasencia t : 948 Patien t 1 Orderi ng Provid er: PADMINI TIMONE Y EXAM DATE: 2024 EXAM: XR CERVIC AL [...] ce of injury is noted. IMPRES CHARLENE: Mild diffus e DDD with subtle malali gnment C5-6. No instab ility. Interp reted By: Teofilo Rao MD Electr onical ly Signed By: Teofilo Rao MD on 025 10:01 AM [email or web address] [facility] Radiology [facility] [address] [place] [address], [phone], 07/17/2025 17:12:53 06/27/2006/27/2025 CT, thora cic spine , w/o contr ast [address] [address] Patien t Name: AREN Plasencia t : 948 [...] COMPAR MAXIMUS: MRI thorac ic spine dated 025 FINDIN GS : Modera te levosc oliosi [...] re is unrema rkable . A small blower insulator ior disc osteop hyte comple x at [...] s are within normal limits . IMPRES CHARLENE: 1. Compre ssion deform ities of the T9 and T10 verteb ral bodies are unchan ged from the prior study. 2. Pick Up And Delivery Driver ior disc osteop hyte comple x at T9-10 result s in modera te centra l canal stenos is, unchan ged. 3. No new osseou s abnorm alitie s. Postop erativ e fusion from T10 extend ing into the lumbar spine. Interp reted By: Pedro motley MD Electr onical ly Signed By: Pedro motley MD on 025 3:52 PM [facility] Radiology [facility] [address] [place], [address], 07/17/2025 17:12:54 06/27/2006/27/2025 CT, lumba r spine , w/o contr ast [facility] [address] [place], [place] [id number] Patien t Name: AREN JEREZ Patien t : 948 Patien t 1 Orderi ng Provid er: PADMINI TIMONE Y EXAM DATE: 2024 EXAM: CT LUMBAR WITHOU T CONTRA ST HISTOR Y: Compre ssion fractu re of T9. Prior thorac olumba r fusion . COMPAR MAXIMUS: MRI lumbar spine 025 TECHNI QUE: 1 mm direct axial slices [...] fractu re. The pedicl e screws and blower insulator ior stabil izatio n bars are unchan [...] muscle s and lumbar muscul ature. IMPRES CHARLENE: 1. Lucenc y surrou nding the screws [...] Pedro motley MD [facility] 025 4:[facility] [address] [place] [address], [phone], 07/17/2025 17:12:54 06/27/2006/27/2025 MRI, cervi lyubov spine , w/o contr ast [facility] [address] [address] [phone] Patimayra t Name: AREN AGRAWAL Elzbieta JEREZ Patimayra t : 948 Patien t 1 Orderi ng Provid er: PADMINI TIMSUSAN Y EXAM DATE: 2024 EXAM: MR CERVIC [...] The signal charac terist ics of the blower insulator ior fossa and cervic al spinal cord are within normal limits . C2-3: The disc spaces mildly narrow ed. Uncove rtebra l hypert rophy and facet arthro bob result s in mild bilate ral neural forami nal stenos is. C3-4: A small blower insulator ior disc protru charlene measur es 3 mm. This result s in a mild centra l canal stenos is. Uncove rtebra l hypert rophy and facet arthro bob result s in modera te bilate ral neural forami nal stenos is. C4-5: The disc space is narrow ed. No centra l canal or neural forami nal stenos is. C5-6: A small blower insulator ior disc osteop hyte comple x result [...] No neural forami nal stenos is. IMPRES CHARLENE: 1. Mild centra l canal stenos is at C5-6 and C6-7. Interp reted By: Pedro motley MD Electr onical ly Signed By: Pedro motley MD on 025 4:03 PM [facility] Radiology [facility] [address] [place], [address], 07/17/2025 17:12:54 Result Notes None recorded. 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 Jovita (Vani) Rody [facility] 9 12:07:45 History of respirat ory disease 468156569 Active Jovita (Vani) Rody [facility] 9 12:07:45 Degenera tive disorder of macula 067637090 Active Jovita (Vani) Rody [facility] 9 12:07:46 Backache 367701911 Active Jovita (Vani) Rody [facility] 9 12:07:46 Disorder of thyroid gland 76820563 [facility] 12:07:46 Kidney stone 51950973 [facility] 9 12:07:46 Bilatera l cataract s 85289827 Active Jovita (Vani) Croley [facility] 9 12:07:46 Pancreat itis 39887704 Active [facility] 12:07:46 Chronic diarrhea 676829108 Active Jovita (Vani) Croley [facility] 12:07:46 Anemia 316770668 Active Jovita (Vani) Croley [facility] 9 12:07:46 Coronary arterios clerosis 69465329 Active Jovita (Vani) Croley [facility] 12:07:46 Impairme nt of balance 109007638 Active Jovita (Vani) Croley [facility] 9 12:07:46 Urinary tract infectio us disease 70782321 Active Jovita (Vani) Croley [facility] 9 12:07:46 Glaucoma 61518525 Active Jovita (Vani) Croley [facility] 9 12:07:46 Rheumato id arthriti s 84546715 [facility] 9 12:07:46 Neck pain 29204016 Active Jovita (Vani) Croley [facility] 9 12:07:46 Spinal stenosis 64113249 Active Jovita (Vani) Croley [facility] 9 12:07:46 Migraine 29439946 Active Jovita (Vani) Croley [facility] 9 12:07:46 Wears glasses 682816571 Active Jovita (Vani) Rody null, [facility] 9 12:07:46 Sinusiti s 90029424 Active Jovita (Vani) Rody null, [facility] 9 12:07:46 Peripher al nerve disease 747857128 Active Jovita (Vani) Rody [facility] 9 12:07:46 Gastroes ophageal reflux disease 860368187 [facility] 9 12:07:46 Deep venous thrombos is 979813181 [facility] 9 12:07:46 Hyperlip idemia 51474291 [facility] 9 12:07:46 Acute poliomye litis 347889893 Active 1954 Jovita (Vani) Rody [facility] 9 12:07:46 Systemic lupus erythema tosus 89849298 Active 1989 Jovita (Vani) Rody [facility] 9 12:07:46 Prolapse d lumbar interver tebral disc 436974431 Active 2014 From Automate d Load;Pro vider: Eloy Amezquita; Status: Active Jovita (Vani) Rody [facility] 9 12:07:46 Low back pain 850357709 Active 2014 Provider : Eloy Amezquita; Status: Active [facility] 9 12:07:46 Spinal stenosis of lumbar region 77364297 Active 2014 From Automate d Load;Pro vider: Eloy Amezquita; Status: Active [facility] 9 12:07:46 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 10717544870 07 Active 2014 From Automate d Load;Pro vider: Neil Pittmanil;St atus: Active Jovita (Vani) Rody [facility] 9 12:07:46 Abdomina l pain 87179216 Active 2014 From Automate d Load;Pro vider: Neil Pittmanil;St atus: Active Jovita (Vani) Rody [facility] 9 12:07:46 Pain 53335184 Active 2014 From Automate d Load;Pro vider: Neil Pittmanil;St atus: Active Jovita (Vani) Rody [facility] 9 12:07:45 Blood in urine 21108155 Active 2014 From Automate d Load;Pro vider: Josh Pittman;St atus: Active Jovita (Vani) Rody [facility] 9 12:07:46 Pain in right knee Active 2014 From Automate d Load;Pro vider: Josh Pittman;St atus: Active Jovita (Vani) Rody [facility] 9 12:07:46 Hyperten sive disorder 25879695 Active 2014 From Automate d Load;Pro vider: Josh Pittman;St atus: Active Not Available [facility] 6 23:35:13 Idiopath ic osteoart hritis 704512609 Active 2014 From Automate d Load;Pro vider: Herminia Orr;Status : Active Jovita (Vani) Rody [facility] 9 12:07:45 Pain in left knee Active 2014 From Automate d Load;Pro vider: Malu Luna;S tatus: Active Jovita (Vani) Rody [facility] 9 12:07:46 Migraine without aura, not refracto ry 701146568 Completed 201506/07/2019 From Automate d Load;Pro vider: Geronimo Dahl;St atus: Active Susan Colon [facility] 9 12:53:55 Lumbosac ral radiculo bob 2068841 Active 2015 From Automate d Load;Pro vider: Eloy Amezquita; Status: Active Jovita (Vani) Rody [facility] 9 12:07:46 Chronic headache disorder 441657450 Active 2018 Susan Colon [facility] 9 12:53:51 Neuropat hy 437881075 Active 2019 Jovita (Vani) Rody [facility] 0 12:46:05 Memory impairme nt 776032160 Active 2019 Jovita (Vani) Rody [facility] 0 12:46:19 Vertigo 931696017 Active 2020 [facility] (Vani) [facility] 1 16:06:43 Parkinso n's disease 05270463 Active 2024 NEENA DEVI, DO [address] [place], [address] , [facility] 5 11:21:53 Abnormal gait due to muscle weakness 047903498 Active 2024 NEENA DEVI, DO [address] [place], [address] , [facility] 5 11:21:53 Idiopath ic peripher al neuropat hy 18094400 Active 2024 NEENA DEVI, DO [address] [place], [address] , [facility] 5 11:02:22 Notes:Some problems listed i n Document: #[id number] could not be added to this patient's chart. Please review this document and add these problems to the patient's chart manually as needed. Problem Notes None recorded. Procedures Surgical History Date Name Laterality Status Provider Name and Address Organization Details Recorded Time 04/09/20 25 Caudal CYNDI Addie completed JULIANNA REAL MD [address] [place], [address], [facility] 04/09/2025 17:22:39 12/06/19 25 total knee replacement completed Bakari Ariascarine [facility] 04/24/2025 10:45:14 11/14/19 25 dental surgical procedure completed Catrina Us [facility] 12/05/2024 11:13:30 09/18/20 24 Caudal CYNDI Addie completed JULIANNA REAL MD [address] [place] [address] [place], [address], [facility] 09/18/2024 14:11:05 07/27/20 24 Joint Injection, Knee - Addie completed JULIANNA REAL MD [address] [place] [address], [phone], [facility] 07/27/2024 13:58:38 07/25/20 24 Post Void Residual; Ultrasound completed FEDERICO NATION APRN [address] [place] [address], [phone], [facility] 07/25/2024 11:36:57 05/16/20 24 Caudal CYNDI Addie completed JULIANNA REAL MD [address] [place] [address], [address], [facility] 05/16/2024 12:49:14 04/20/20 24 Joint Injection, Knee - Addie completed JULIANNA REAL MD [address] [place] [address], [address], [facility] 04/20/2024 11:47:04 02/08/20 24 total knee replacement completed Shayy Pathak [facility] 05/16/2024 10:52:57 01/31/20 24 Joint Injection, Knee - Addie completed JULIANNA REAL MD [address] [place] [address], [address], [facility] 01/31/2024 15:34:35 01/20/20 24 Post Void Residual; Ultrasound completed RADHA JOHNSTON MD [address] [place] [address] [place], [address], [facility] 01/20/2024 11:50:18 01/11/20 24 Caudal CYNDI Addie completed JULIANNA REAL MD [address] [place], [address], [facility] 01/11/2024 13:44:46 11/23/19 24 Post Void Residual; Ultrasound completed Chaparrita Gómez [facility] 11/23/2023 11:05:50 10/21/19 24 Joint Injection, Knee - Addie completed JULIANNA REAL MD [address] [place], [address], [facility] 10/21/2023 13:59:42 10/07/19 24 Caudal CYNDI Addie completed JULIANNA REAL MD [address] [place], [address], [facility] 10/07/2023 12:03:23 08/31/20 23 Trigger Point Injections - Addie completed ZEHRA LARIOS PA-C [address] [place], [address], [facility] 08/31/2023 15:18:07 07/12/20 Lumbar Transforaminal Epidural Injection - Addie completed JULIANNA REAL MD [address] [place], [address], [facility] 07/12/2023 12:44:44 01/28/20 23 Monovisc Injection completed HEAVEN GRAHAM PA-C [address] [place] [address], [phone], [facility] 02/09/2023 13:19:06 08/06/20 20 LIGATION OR BIOPSY, TEMPORAL ARTERY (SURG) completed Iraida Beyer [facility] 08/07/2020 14:34:42 Back Surgery completed Kati Bledsoe [facility] 05/10/2018 14:27:13 Shoulder joint surgery completed Kati Bledsoe [facility] 05/10/2018 14:27:30 Tubal Ligation completed Natalia Miller [facility] 11/17/2023 11:49:05 placement of stent in cardiac conduit completed Natalia Miller [facility] 11/17/2023 11:49:20 Shoulder joint surgery completed Shayy Pathak [facility] 05/16/2024 10:52:23 Imaging Results None recorded. Procedure Notes None recorded. Medical Equipment None Reported. Allergies Allergen ID Allergen Name Allergen Category Reaction Reaction Severity Criticality Documentation Date Start Date Code Code System Note Provider Name and Address Organization Details Recorded Time 565973 Compazine medicatio n Not available Not available Not available 08/13/2016201254 6 RxNorm Comme nt: Creat ed By: Deny Ortega ;Anastacioa roni Date: 07/19 10:31 :05 AM; Natalia Paul [facility] 3 13:19:43 514782 acetamino phen / oxycodone medicatio n hallucina tions Not available Not available 08/13/20162012 38547 3 RxNorm Natalia Paul [facility] 3 13:19:26 740866 aspirin medicatio n Not available Not available Not available 08/13/20162015 1191 RxNorm Comme nt: Creat ed By: Owen goldenCre ated Date: 2015 2:57: 49 PM; Natalia Paul [facility] 3 10:56:39 513585 prochlorp erazine medicatio n seizure Not available Not available 06/07/2019 8704 RxNorm Paddy zine Natalia Paul [facility] 3 13:19:09 228914 aspirin medicatio n Not available Not available Not available 06/07/2019 1191 RxNorm 'Rhina l funct ion tests abnor mal'. Natalia Paul [facility] 3 13:19:59 731907 baclofen medicatio n other Not available Not available 05/03/2025 1292 RxNorm High B/P, brie Garrettsity York [facility] 5 11:41:26 Medications Name Sig Start Date [...] as needed by oral route. 2024 active [facility]: 0904-588 0-61 Not Available Not [...] Last Updated DateTime 06/06/2025 162.56 cm [facility] 06/06/2025 09:09:05 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 Question Answer Notes LastModified by Organizat ion Details LastModified Time Tobacco Smoking Status Former Smoker Kati tsang, [facility] 05/10/2018 14:27:07 How Much Tobacco Do You Chew? None [email or web address] Information not available 06/07/2019 Which Illicit Or Recreational Drugs Have You Used? No [email or web address] Information not available 06/06/2020 Marital Status Junior [email or web address] Informatio n not available 06/07/2019 What Was The Date Of Your Most Recent Tobacco Screening? 06/26/2025 [email or web address] Information not available 06/26/2025 What Is Your Relationship Status? [email or web address] Information not available 08/31/2024 How Much Tobacco Do You Smoke? No [email or web address] Information not available 06/07/2019 Sex: Unknown Functional Status Question Answer Note LastModified by Organizat ion Details LastModified Time What is your level of alcohol consumption? None [email or web address] Information not available 06/07/2019 Do you or have you ever used smokeless tobacco? Never used smokeless tobacco [email or web address] Information not available 06/07/2019 Are you currently employed? No [email or web address] Information not available 08/31/2024 What is your occupation? retired [email or web address] Information not available 06/07/2019 Do you or have you ever used e-cigarettes or vape? Never used electronic cigarettes [email or web address] Information not available 06/07/2019 Mental Status None [...] Osteoporosis/Osteopenia Y Stomach trouble Y Heart Attack ([place]) N Diabetes N Anxiety Disorder Y Bleeding Disorder N Hearing Loss Y Arthritis Y Blood Clot Y Cancer N Stroke N Chronic Kidney Disease Y Blood Thinners Y Sleep Apnea Y Thyroid Disorder Y Sleep Disorder Y Neurologic Disorder N Hepatitis Y Liver Disease Y Heart Disease Y Hypertension Y Gynecological HistoryNo gynecological history recorded. Obstetrics History GPAL:G 0 P 0 0 0 0 Immunizations Vaccine Type Date Status Note Provider Nam e and Address Organization Details Recorded Time zoster recombinant 9 completed Not Available [facility] 06/26/2025 10:45:04 Pneumococcal conjugate PCV 13 0 completed Not Available [facility] 06/26/2025 10:45:04 zoster recombinant 0 completed Not Available [facility] 06/26/2025 10:45:04 COVID-19, mRNA, LNP-S, PF, 100 mcg/0.5mL dose or 50 mcg/0.25mL dose 1 completed Not Available [facility] 06/26/2025 10:45:04 Influenza, high-dose, trivalent, PF 1 completed Not Available [facility] 06/26/2025 10:45:04 COVID-19, mRNA, LNP-S, PF, 100 mcg/0.5mL dose or 50 mcg/0.25mL dose 2 completed Not Available [facility] 06/26/2025 10:45:04 Influenza, high-dose, trivalent, PF 2 completed Not Available [facility] 06/26/2025 10:45:04 Influenza, high-dose, trivalent, PF 3 completed Not Available [facility] 06/26/2025 10:45:04 COVID-19, mRNA, LNP-S, PF, 50 mcg/0.5 mL 3 completed Not Available [facility] 06/26/2025 10:45:04 Tdap 3 completed Not Available [facility] 06/26/2025 10:45:04 COVID-19, mRNA, LNP-S, PF, 50 mcg/0.5 mL 4 completed Not Available [facility] 06/26/2025 10:45:04 Influenza, high-dose, trivalent, PF 4 completed Not Available [facility] 06/26/2025 10:45:04 Influenza, split virus, quadrivalent, preservative 8 completed Wendie Rozina [facility] 06/07/2019 11:53:21 pneumococcal, unspecified formulation 7 completed Wendie Rozina [facility] 06/07/2019 11:53:21 Influenza, split virus, quadrivalent, preservative 0 completed Jovita (Vani) Rody [facility] 06/06/2020 12:05:59 SARS-COV-2 (COVID-19) vaccine, UNSPECIFIED 1 completed Mrae Bledsoe [facility] 03/18/2021 09:39:59 SARS-COV-2 (COVID-19) vaccine, UNSPECIFIED 1 completed Mare Bledsoe [facility] 03/18/2021 09:40:02 Influenza, split virus, quadrivalent, preservative 0 completed Mare Bledsoe [facility] 03/18/2021 09:40:14 Past Encounters Encounter ID Performer Location Encounter Start Date Encounter Closed Date Diagnosis/Indication Diagnosis SNOMED-CT Code Diagnosis ICD10 Code Diagnosis IMO Codes Diagnosis Note [id number] NAHUN DUDLEY PA-C [facility] [address] [place] [address] 06/06/2025 09:07:58 06/14/2025 06:29:20 Thoracic spondylosis 415141489 M47.814 89665 Lumbar radiculopathy 128 298779 M54.16 19580 Cervical radiculopathy 50279990 M54.12 019076 Health Concerns Section Related Observation LastModified by Organization Detai ls LastModified Time None Recorded Concern Status LastModified by Organization Details LastModified Time None Recorded Payers Encounter Date Sequence Insurance Name Policy Number Policy Pearl Covered Member ID Pearl Member ID Guarantor Name 06/06/2025 1 [employer] (MEDICARE REPLACEMENT/ ADVANTAGE - PPO) Yoko Jerez [id number] Yoko Jerez 06/06/2025 2 MEDICAID-[facility] CHOICES - FFS/TRADITIO NAL Yoko Jerez [id number] Yoko Jerez Notes Date Note Type Note [...] some decreased balance. NAHUN DUDLEY PA-C [address] [place], [address], [facility] 06/06/2025 16:39:03 OBGyn Episode No OBEpisode recorded.
--- NOTE | 2025-07-23 10:53 | MM_ITS ---
PROCEDURE INFORMATION: Exam: MG Bilateral Screening 3D Mammography Exam date and time: 07/23/2025 10:56 AM Age: 79 years old Clinical indication: Screening examination TECHNIQUE: Imaging protocol: Bilateral Screening tomosynthesis and 2D mammography including computer-aided detection (CAD) when performed. COMPARISON: 1. MG MM DIG MAMM DX UNILAT RT CAD 05/12/2022 1:36 PM 2. MG MM DIG SCREENING MAMM BI W/CAD 08/18/2021 11:01 AM FINDINGS: MAMMOGRAPHY: Breast composition: There are scattered areas of fibroglandular density. Mass: None. Architectural distortion: None. Calcifications: No suspicious calcifications. Asymmetric density: None. Skin thickening: None. Axillary adenopathy: None. Other findings: A loop recorder overlies the left medial breast. IMPRESSION: No mammographic evidence of malignancy. Annual screening is recommended unless otherwise clinically indicated. ASSESSMENT: BI-RADS Category 1: Negative.
== END 2025-07-23 23:59 | disposition home or self-care (01) ==
LOC: RAD 10:12
PROVIDERS: PCP Nurse Practitioner Family; Visit Provider Internal Medicine Adolescent Medicine
DX: Z12.31 Encounter for screening mammogram for malignant neoplasm of breast (principal); R92.323 Mammographic fibroglandular density, bilateral breasts; Z95.818 Presence of other cardiac implants and grafts
CPT/HCPCS: 77063; 77067

== ENCOUNTER 2025-08-27 09:41 | Outpatient (CLI) | payer MEDICARE, MEDICAID, SELFPAY ==
--- NOTE | 2025-08-27 09:59 | XR_ITS ---
FINAL REPORT TECHNIQUE: Bone densitometry calculations of the lumbar spine and left hip were obtained. CLINICAL HISTORY: SCREENING FINDINGS: Using the one third radius, the bone mineral density of the radius is 0.684 g/cm2, corresponding to T-score of -0.2. Using the left hip, the bone mineral density of the femoral neck is 0.968 g/cm2, corresponding to a T-score of 0.2. Using the right hip, the bone mineral density of the femoral neck is 0.996 g/cm2, corresponding to a T-score of 0.4. NOTE: T-score: Standard deviation compared with peak bone mass of young adult mean. *Following the recommendations of the International Society of Bone densitometry, classification of hip BMD is based on the lower of two T-scores; total hip or femoral neck. IMPRESSION: Normal bone mineral density of the one third radius and both hips. FRAX was not reported because all of the T-scores are at or above -1.0 Reviewed, Interpreted and Dictated by Josiah Russell MD Transcribed by Lorin Sesay Authenticated and . [facility]
== END 2025-08-27 23:59 | disposition home or self-care (01) ==
LOC: RAD 09:41
PROVIDERS: PCP Nurse Practitioner Family; Visit Provider Internal Medicine Rheumatology
DX: M81.0 Age-related osteoporosis without current pathological fracture (principal)
CPT/HCPCS: 77080